=== PATIENT | female | born 1935 | race Caucasian/White ===

== ENCOUNTER → 2017-04-27 13:06 | Outpatient (CLI) | payer MEDICARE, OTHER, SELFPAY ==
[2017-04-27 14:07] LABS: T4 Free Direct 1.59 ng/dL (0.76-1.46); Thyroid Stim Hormone (TSH) 1.84 uIU/mL (0.358-3.74)
[2017-04-27 14:37] LABS: International Normalized Ratio 2.4
== END ==
PROVIDERS: Family Provider Family Medicine; PCP Family Medicine; Visit Provider Internal Medicine Cardiovascular Disease
DX: I50.23 Acute on chronic systolic (congestive) heart failure (principal); Z79.01 Long term (current) use of 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
CPT/HCPCS: 36415; 84439; 84443; 85610

== ENCOUNTER 2017-04-30 14:15 | Outpatient (RCR) | payer MEDICARE, OTHER, SELFPAY ==
[2017-04-02 01:36] VITALS: BP 100/60; BP 98/62
[2017-05-02 08:57] VITALS: BP 106/68; BP 96/52
--- NOTE | 2017-05-02 08:58 | CR.ITP_ITS ---
Exercise - Initial Assessment - Stages of Change Stages of Change:: Contemplate - Exercise Prescription Mode:: Biodyne, Airdyne, NuStep, Arm Ergometer - Hypertension Do any of the following apply?: Yes - Intervention Home Exercise/Activity Goal:: Sitting Time <3 hrs/day - Education Goals:: Warm-up, RPE MERCEDES Scale, S/S, Safe Exercise, Self-Monitoring - Exercise Program Goals Exercise Program Goals: Aerobic Activity >30 min, B/P <140/90 Exercise - 30-day Assessment - Visit Date of Eval: 03/30/17 - Stages of Change Stages of Change:: Action - Exercise Prescription Mode:: Airdyne, NuStep Frequency (x/week): 3 Duration:: 30 METs - Progression: 0.5-1 MET as tolerated: 2.5 Target Heart Rate:: Rest +20 - Intervention Home Exercise/Activity Goal:: Sitting Time <3 hrs/day - Education Goals:: Warm-up, RPE MERCEDES Scale, S/S, Safe Exercise, Self-Monitoring - Exercise Program Goals Exercise Program Goals: Aerobic Activity >30 min, B/P <140/90 Exercise - 60-Day Assessment - Visit Date of Eval: 05/02/17 Session #:: 13 - Stages of Change Stages of Change:: Action - Exercise Prescription Mode:: Biodyne, NuStep Frequency (x/week): 3 Duration:: 30 METs: 3.5 Target Heart Rate:: Rest HR+20 BPM;Max HR 106 - Hypertension Resting Blood Pressure:: 96/52 Peak Exercise Blood Pressure:: 106/68 Medication Changes:: Yes - started back on amiodarone - Intervention Home Exercise/Activity Goal:: Sitting Time <3 hrs/day - patient encouraged to increase activity levels, even if just ambulating at home. - Education Goals:: Warm-up, RPE MERCEDES Scale, S/S, Safe Exercise, Self-Monitoring - Exercise Program Goals Exercise Program Goals: Aerobic Activity >30 min Exercise - Final/Discharge - Hypertension Do any of the following apply?: Yes Nutrition - Initial Assessment - Program Goals Nutrition Program Goals: LDL <70. Total Cholesterol <200. HDL >45. Triglycerides <150. HgbA1C <7%. BMI <25 - Stages of Change Stages of Change:: Contemplate - Diabetes Diabetes:: No - Weight Management Total Score:: 1 - Intervention Referral to dietitian:: No Referral to Diabetic Clinic:: No Will attend diet classes:: Yes - Education Gave educational materials for:: Signs & symptoms of hypoglycemia, Signs & symptoms of hyperglycemia, Relate diabetes to coronary artery disease, Healthy eating Nutrition - 30-Day Assessment - Program Goals Nutrition Program Goals: LDL <70. Total Cholesterol <200. HDL >45. Triglycerides <150. HgbA1C <7%. BMI <25 - Lipids Has the patient seen the dietitian?: No - Diabetes Diabetes:: No - Intervention Referral to dietitian:: No Referral to Diabetic Clinic:: No Will attend diet classes:: Yes - Education Attended class for:: Signs & symptoms of hypoglycemia, Signs & symptoms of hyperglycemia, Relate diabetes to coronary artery disease, Healthy eating Nutrition - 60-Day Assessment - Program Goals Nutrition Program Goals: LDL <70. Total Cholesterol <200. HDL >45. Triglycerides <150. HgbA1C <7%. BMI <25 - Visit Date of Eval: 05/02/17 - Stages of Change Stages of Change:: Action - Lipids Has the patient seen the dietitian?: No - Diabetes Diabetes:: No - Weight Management Weight:: 93.172 kg - Intervention Referral to dietitian:: No Referral to Diabetic Clinic:: No Will attend diet classes:: Yes - Education Attended class for:: Signs & symptoms of hypoglycemia, Signs & symptoms of hyperglycemia, Relate diabetes to coronary artery disease, Healthy eating Nutrition - 90-Day Assessment - Program Goals Nutrition Program Goals: LDL <70. Total Cholesterol <200. HDL >45. Triglycerides <150. HgbA1C <7%. BMI <25 - Lipids Has the patient seen the dietitian?: No - Diabetes Diabetes:: No - Intervention Referral to dietitian:: No Referral to Diabetic Clinic:: No Will attend diet classes:: Yes - Education Attended class for:: Signs & symptoms of hypoglycemia, Signs & symptoms of hyperglycemia, Relate diabetes to coronary artery disease, Healthy eating Nutrition - Final Assessment - Program Goals Nutrition Program Goals: LDL <70. Total Cholesterol <200. HDL >45. Triglycerides <150. HgbA1C <7%. BMI <25 - Diabetes Diabetes:: No - Weight Management Total Score:: 1 - Intervention Referral to dietitian:: No Referral to Diabetic Clinic:: No Will attend diet classes:: Yes Tobacco - Initial Assessment - Program Goals Tobacco Program Goals: Complete smoking cessation. Attend education classes. Improve Knowledge Test score - Stage of Change Stages of Change:: Contemplate - Learning Barriers Learning Barriers: Vision Total Score:: 9 - Family Support Do you have family support?: Yes - Tobacco Use Tobacco Use: Non-smoker Do you use smokeless tobacco?: No - Intervention Smoking Cessation Referral:: No Individual Education/Counseling:: No Education Schedule Given:: Yes - Education Gave educational material for:: Tobacco triggers, Coronary artery disease, Risk factors, Sexuality, Medical compliance, Cardiac A&P, Angina signs & symptoms Tobacco - 30-Day Assessment - Program Goals Tobacco Program Goals: Complete smoking cessation. Attend education classes. Improve Knowledge Test score - Stage of Change Stages of Change:: Action - Learning Barriers Learning Barriers: Participates in education - Family Support Do you have family support?: Yes - Tobacco Use Tobacco Use: Non-smoker Do you use smokeless tobacco?: No - Intervention Smoking Cessation Referral:: No Individual Education/Counseling:: No Education Schedule Given:: Yes - Education Attended class for:: Tobacco triggers, Coronary artery disease, Risk factors, Sexuality, Medical compliance, Cardiac A&P, Angina signs & symptoms Tobacco - 60-Day Assessment - Program Goals Tobacco Program Goals: Complete smoking cessation. Attend education classes. Improve Knowledge Test score - Stage of Change Stages of Change:: Action - Learning Barriers Learning Barriers: Participates in education - Family Support Do you have family support?: Yes - Tobacco Use Tobacco Use: Non-smoker Do you use smokeless tobacco?: No - Intervention Smoking Cessation Referral:: No Individual Education/Counseling:: No Education Schedule Given:: Yes - Education Attended class for:: Tobacco triggers, Coronary artery disease, Risk factors, Sexuality, Medical compliance, Cardiac A&P, Angina signs & symptoms Tobacco - 90-Day Assessment - Program Goals Tobacco Program Goals: Complete smoking cessation. Attend education classes. Improve Knowledge Test score - Family Support Do you have family support?: Yes - Tobacco Use Tobacco Use: Non-smoker Do you use smokeless tobacco?: No - Intervention Smoking Cessation Referral:: No Individual Education/Counseling:: No Education Schedule Given:: Yes - Education Attended class for:: Tobacco triggers, Coronary artery disease, Risk factors, Sexuality, Medical compliance, Cardiac A&P, Angina signs & symptoms Tobacco - Final Assessment - Program Goals Tobacco Program Goals: Complete smoking cessation. Attend education classes. Improve Knowledge Test score - Learning Barriers Cardiac Knowledge Test Score:: 9 - Family Support Do you have family support?: Yes - Tobacco Use Tobacco Use: Non-smoker Do you use smokeless tobacco?: No - Intervention Smoking Cessation Referral:: No Individual Education/Counseling:: No Education Schedule Given:: Yes Psychosocial - Initial Assess - Target Goals Target Goals: Assess presence or absence of depression. Using a valid screening tool, maximizes coping skills. Positive support system - Psychosocial Test Tool Used:: HANDS Depression Questionnaire Total Mood Screening Score:: 12 Self-Efficacy Score:: 7 - Intervention PS - Interventions: Yes Attend Stress Management Classes, Yes Uses Stress Management Skills, No Referral to Mental Health, No Referral to [facility] Case Management, No Referral to Physician - Patient/Program Goal Preventative Medication(s):: Aspirin, EDUARDO inhibitor, Clopidogrel, Beta elda, Statin/lipid - Assistive Devices Assistive Devices:: None Fall Risk Assessed:: Yes - Pt is getting stronger Psychosocial - 30-Day Assess - Target Goals Target Goals: Assess presence or absence of depression. Using a valid screening tool, maximizes coping skills. Positive support system - Stages of Change Stages of Change:: Action - Psychosocial Test Tool Used:: HANDS Depression Questionnaire Total Mood Screening Score:: 12 Self-Efficacy Score:: 7 - Patient/Program Goal Preventative Medication(s):: Aspirin, EDUARDO inhibitor, Clopidogrel, Beta elda, Statin/lipid - Assistive Devices Assistive Devices:: None Fall Risk Assessed:: Yes - Pt is getting stronger Psychosocial - 60-Day Assess - Target Goals Target Goals: Assess presence or absence of depression. Using a valid screening tool, maximizes coping skills. Positive support system - Stages of Change Stages of Change:: Action - Psychosocial Test Tool Used:: HANDS Depression Questionnaire Total Mood Screening Score:: 12 Self-Efficacy Score:: 7 - Intervention PS - Interventions: Yes Referral to Physician - Depression Scale high, low self efficacy score., Yes Attend Stress Management Classes, No Referral to Mental Health, No Referral to [facility] Case Management, No Uses Stress Management Skills - Education Attended classes for:: Coping techniques, Signs & symptoms of depression, Stress management, Relaxation techniques - Patient/Program Goal Preventative Medication(s):: Aspirin, EDUARDO inhibitor, Clopidogrel, Beta elda, Statin/lipid - Assistive Devices Assistive Devices:: None Fall Risk Assessed:: Yes - Pt is getting stronger Psychosocial - 90-Day Assess - Target Goals Target Goals: Assess presence or absence of depression. Using a valid screening tool, maximizes coping skills. Positive support system - Psychosocial Test Tool Used:: HANDS Depression Questionnaire Total Mood Screening Score:: 12 Self-Efficacy Score:: 7 - Patient/Program Goal Preventative Medication(s):: Aspirin, EDUARDO inhibitor, Clopidogrel, Beta elda, Statin/lipid - Assistive Devices Assistive Devices:: None Fall Risk Assessed:: Yes - Pt is getting stronger Psychosocial - Final Assessmen - Target Goals Target Goals: Assess presence or absence of depression. Using a valid screening tool, maximizes coping skills. Positive support system - Psychosocial Test Tool Used:: HANDS Depression Questionnaire Total Mood Screening Score:: 12 Self-Efficacy Score:: 7 - Patient/Program Goal Preventative Medication(s):: Aspirin, EDUARDO inhibitor, Clopidogrel, Beta elda, Statin/lipid - Assistive Devices Assistive Devices:: None Fall Risk Assessed:: Yes - Pt is getting stronger Patient Health Questionnaire 60-Day Re-eval Assessment 1. Little interest or pleasure in doing things: Nearly every day 2. Feeling down, depressed, or hopeless: More than half the days 3. Trouble falling or staying asleep, or sleeping too much: Not at all 4. Feeling tired or having little energy: Several days 5. Poor appetite or overeating: Several days 6. Feeling bad about yourself -- or that you are a failure or have let yourself or your family down: Several days 7. Trouble concentrating on things, such as reading the newspaper or watching television: More than half the days 8. Moving or speaking so slowly that other people could have noticed. Or the opposite - being so fidgety or restless that you have been moving around a lot more than usual: More than half the days 9. Thoughts that you would be better off , or of hurting yourself in some way: Not at all How difficult have these problems made it for you to do your work, take care of things at home, or get along with other people?: Very difficult Total Score: 12 Self-Efficacy 60-Day Re-eval Assessment We would like to know how confident you are in doing certain activities. Please select your confidence level for:: Select your confidence level for the following using the scale 1-10 where 1 is not at all confident and 10 is totally confident. Your score is the average of all 6 responses. Fatigue: How confident are you that you can keep the fatigue caused by your disease from interfering with the things you want to do? Select Number: 7 Physical Discomfort or Pain: How confident are you that you can keep the physical discomfort or pain of your disease from interfering with the things you want to do? Select Number: 6 Emotional Distress: How confident are you that you can keep the emotional distress caused by your disease from interfering with the things you want to do? Select Number: 8 Other Symptoms or Health Problems: How confident are you that you can keep other symptoms or health problems from interfering with the things you want to do? Select Number: 7 Different Tasks and Activities: How confident are you that you can do the different tasks and activities needed to manage your health condition so as to reduce your need to see a doctor? Select Number: 6 Medication: How confident are you that you can do things other than just taking medication to reduce how much your illness affects your everyday life? Select Number: 7 Total Score:: 6 Cardiac Rehabilitation Goals - Cardiac Rehab Goals Cardiac Rehabilitation Goals: 1. Maintain the individual as the primary focus of care. 2. To improve the patient's quality of life. 3. Identification of cardiac risk factors and provide cardiac risk factor management. 4. Enhance the psychosocial status of the patient. 5. Reconditioning enough to allow the patient to resume customary activities. 6. Control symptoms of cardiac disease - Scale Scale for measuring improvement of personal goals: Enter appropriate number in Comments. 2 = Unchanged. 3 = Slightly Better. 4 = Moderate Improvement. 5 = Met my Goal 60-Day Re-eval Assessment Personal Goals: 60-day Re-assessment: Improve energy level - no change, Get back to work, or to resume activities faster - no change, Improve muscle strength and endurance - no change
== END 2017-05-02 23:59 ==
LOC: CR 14:15
PROVIDERS: Family Provider Family Medicine; PCP Family Medicine; Visit Provider Internal Medicine Cardiovascular Disease
DX: Z95.1 Presence of aortocoronary bypass graft (principal); Z95.2 Presence of prosthetic heart valve; I50.23 Acute on chronic systolic (congestive) heart failure; Z79.01 Long term (current) use of 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
CPT/HCPCS: 36415; 84439; 84443; 85610; 93798

== ENCOUNTER → 2017-05-11 13:12 | Outpatient (CLI) | payer MEDICARE, OTHER, SELFPAY ==
[2017-04-23 14:50] VITALS: BP 98/60; BMI 33.6
[2017-05-11 13:40] LABS: Prothrombin Time (Protime)PT. 22.2 SECONDS (11.7-14.9)
== END ==
PROVIDERS: Family Provider Family Medicine; PCP Family Medicine; Visit Provider Internal Medicine Cardiovascular Disease
DX: Z79.01 Long term (current) use of 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 (principal)
CPT/HCPCS: 36415; 85610

== ENCOUNTER → 2017-05-25 13:14 | Outpatient (CLI) | payer MEDICARE, OTHER, SELFPAY ==
[2017-05-25 13:49] LABS: International Normalized Ratio 2.1
== END ==
PROVIDERS: Family Provider Family Medicine; PCP Family Medicine; Visit Provider Internal Medicine Cardiovascular Disease
DX: Z79.01 Long term (current) use of 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 (principal)
CPT/HCPCS: 36415; 85610

== ENCOUNTER 2017-05-30 14:15 | Outpatient (RCR) | payer MEDICARE, OTHER, SELFPAY ==
[2017-04-23 14:50] VITALS: BP 98/60; BMI 33.6
[2017-05-03 00:54] VITALS: BP 106/68; BP 96/52
[2017-05-30 13:17] VITALS: BP 96/58
--- NOTE | 2017-05-30 13:18 | CR.ITP_ITS ---
Exercise - Initial Assessment - Stages of Change Stages of Change:: Contemplate - Exercise Prescription Mode:: Biodyne, Airdyne, NuStep, Arm Ergometer - Hypertension Do any of the following apply?: Yes - Intervention Home Exercise/Activity Goal:: Sitting Time <3 hrs/day - Education Goals:: Warm-up, RPE MERCEDES Scale, S/S, Safe Exercise, Self-Monitoring - Exercise Program Goals Exercise Program Goals: Aerobic Activity >30 min, B/P <140/90 Exercise - 30-day Assessment - Stages of Change Stages of Change:: Action - Exercise Prescription Mode:: Airdyne, NuStep Frequency (x/week): 3 Duration:: 30 METs - Progression: 0.5-1 MET as tolerated: 2.5 Target Heart Rate:: Rest +20 - Intervention Home Exercise/Activity Goal:: Sitting Time <3 hrs/day - Education Goals:: Warm-up, RPE MERCEDES Scale, S/S, Safe Exercise, Self-Monitoring - Exercise Program Goals Exercise Program Goals: Aerobic Activity >30 min, B/P <140/90 Exercise - 60-Day Assessment - Visit Date of Eval: 05/02/17 - Stages of Change Stages of Change:: Action - Exercise Prescription Mode:: Biodyne, NuStep Frequency (x/week): 3 Duration:: 30 METs: 3.5 Target Heart Rate:: Rest HR+20 BPM;Max HR 106 - Hypertension Medication Changes:: Yes - started back on amiodarone - Intervention Home Exercise/Activity Goal:: Sitting Time <3 hrs/day - patient encouraged to increase activity levels, even if just ambulating at home. - Education Goals:: Warm-up, RPE MERCEDES Scale, S/S, Safe Exercise, Self-Monitoring - Exercise Program Goals Exercise Program Goals: Aerobic Activity >30 min Exercise - 90-Day Assessment - Visit Date of Eval: 05/30/17 Session #:: 22 - Stages of Change Stages of Change:: Action - Exercise Prescription Mode:: Biodyne, NuStep Frequency (x/week): 3 Duration:: 30 METs: 3.5 Target Heart Rate:: Rest HR+20 BPM;Max HR 94 - Hypertension Resting Blood Pressure:: 96/58 Peak Exercise Blood Pressure:: 96/58 Medication Changes:: Yes - started back on amiodarone - Intervention Home Exercise/Activity Goal:: Moderate Exercise 30 min/day x 5 days/wk - patient encouraged to increase activity levels, even if just ambulating at home. - Education Goals:: Warm-up, RPE MERCEDES Scale, S/S, Safe Exercise, Self-Monitoring - Exercise Program Goals Exercise Program Goals: Aerobic Activity >30 min Exercise - Final/Discharge - Hypertension Do any of the following apply?: Yes Nutrition - Initial Assessment - Program Goals Nutrition Program Goals: LDL <70. Total Cholesterol <200. HDL >45. Triglycerides <150. HgbA1C <7%. BMI <25 - Stages of Change Stages of Change:: Contemplate - Diabetes Diabetes:: No - Weight Management Total Score:: 1 - Intervention Referral to dietitian:: No Referral to Diabetic Clinic:: No Will attend diet classes:: Yes - Education Gave educational materials for:: Signs & symptoms of hypoglycemia, Signs & symptoms of hyperglycemia, Relate diabetes to coronary artery disease, Healthy eating Nutrition - 30-Day Assessment - Program Goals Nutrition Program Goals: LDL <70. Total Cholesterol <200. HDL >45. Triglycerides <150. HgbA1C <7%. BMI <25 - Lipids Has the patient seen the dietitian?: No - Diabetes Diabetes:: No - Intervention Referral to dietitian:: No Referral to Diabetic Clinic:: No Will attend diet classes:: Yes - Education Attended class for:: Signs & symptoms of hypoglycemia, Signs & symptoms of hyperglycemia, Relate diabetes to coronary artery disease, Healthy eating Nutrition - 60-Day Assessment - Program Goals Nutrition Program Goals: LDL <70. Total Cholesterol <200. HDL >45. Triglycerides <150. HgbA1C <7%. BMI <25 - Visit Date of Eval: 05/02/17 - Stages of Change Stages of Change:: Action - Lipids Has the patient seen the dietitian?: No - Diabetes Diabetes:: No - Intervention Referral to dietitian:: No Referral to Diabetic Clinic:: No Will attend diet classes:: Yes - Education Attended class for:: Signs & symptoms of hypoglycemia, Signs & symptoms of hyperglycemia, Relate diabetes to coronary artery disease, Healthy eating Nutrition - 90-Day Assessment - Program Goals Nutrition Program Goals: LDL <70. Total Cholesterol <200. HDL >45. Triglycerides <150. HgbA1C <7%. BMI <25 - Visit Date of Eval: 02/28/18 - Stages of Change Stages of Change:: Action - Lipids Has the patient seen the dietitian?: No - Diabetes Diabetes:: No Insulin: No Non-Insulin Dependent?: No - Weight Management Weight:: 206 lb - Intervention Referral to dietitian:: No Referral to Diabetic Clinic:: No Will attend diet classes:: Yes - Education Attended class for:: Signs & symptoms of hypoglycemia, Signs & symptoms of hyperglycemia, Relate diabetes to coronary artery disease, Healthy eating Nutrition - Final Assessment - Program Goals Nutrition Program Goals: LDL <70. Total Cholesterol <200. HDL >45. Triglycerides <150. HgbA1C <7%. BMI <25 - Diabetes Diabetes:: No - Weight Management Total Score:: 1 - Intervention Referral to dietitian:: No Referral to Diabetic Clinic:: No Will attend diet classes:: Yes Tobacco - Initial Assessment - Program Goals Tobacco Program Goals: Complete smoking cessation. Attend education classes. Improve Knowledge Test score - Stage of Change Stages of Change:: Contemplate - Learning Barriers Learning Barriers: Vision Total Score:: 9 - Family Support Do you have family support?: Yes - Tobacco Use Tobacco Use: Non-smoker Do you use smokeless tobacco?: No - Intervention Smoking Cessation Referral:: No Individual Education/Counseling:: No Education Schedule Given:: Yes - Education Gave educational material for:: Tobacco triggers, Coronary artery disease, Risk factors, Sexuality, Medical compliance, Cardiac A&P, Angina signs & symptoms Tobacco - 30-Day Assessment - Program Goals Tobacco Program Goals: Complete smoking cessation. Attend education classes. Improve Knowledge Test score - Stage of Change Stages of Change:: Action - Learning Barriers Learning Barriers: Participates in education - Family Support Do you have family support?: Yes - Tobacco Use Tobacco Use: Non-smoker Do you use smokeless tobacco?: No - Intervention Smoking Cessation Referral:: No Individual Education/Counseling:: No Education Schedule Given:: Yes - Education Attended class for:: Tobacco triggers, Coronary artery disease, Risk factors, Sexuality, Medical compliance, Cardiac A&P, Angina signs & symptoms Tobacco - 60-Day Assessment - Program Goals Tobacco Program Goals: Complete smoking cessation. Attend education classes. Improve Knowledge Test score - Stage of Change Stages of Change:: Action - Learning Barriers Learning Barriers: Participates in education - Family Support Do you have family support?: Yes - Tobacco Use Tobacco Use: Non-smoker Do you use smokeless tobacco?: No - Intervention Smoking Cessation Referral:: No Individual Education/Counseling:: No Education Schedule Given:: Yes - Education Attended class for:: Tobacco triggers, Coronary artery disease, Risk factors, Sexuality, Medical compliance, Cardiac A&P, Angina signs & symptoms Tobacco - 90-Day Assessment - Program Goals Tobacco Program Goals: Complete smoking cessation. Attend education classes. Improve Knowledge Test score - Stage of Change Stages of Change:: Action - Learning Barriers Learning Barriers: Participates in education - Family Support Do you have family support?: Yes - Tobacco Use Tobacco Use: Non-smoker Do you use smokeless tobacco?: No - Intervention Smoking Cessation Referral:: No Individual Education/Counseling:: No Education Schedule Given:: Yes - Education Attended class for:: Tobacco triggers, Coronary artery disease, Risk factors, Sexuality, Medical compliance, Cardiac A&P, Angina signs & symptoms Tobacco - Final Assessment - Program Goals Tobacco Program Goals: Complete smoking cessation. Attend education classes. Improve Knowledge Test score - Learning Barriers Cardiac Knowledge Test Score:: 9 - Family Support Do you have family support?: Yes - Tobacco Use Tobacco Use: Non-smoker Do you use smokeless tobacco?: No - Intervention Smoking Cessation Referral:: No Individual Education/Counseling:: No Education Schedule Given:: Yes Psychosocial - Initial Assess - Target Goals Target Goals: Assess presence or absence of depression. Using a valid screening tool, maximizes coping skills. Positive support system - Psychosocial Test Tool Used:: HANDS Depression Questionnaire Total Mood Screening Score:: 12 Self-Efficacy Score:: 7 - Education Gave educational materials for:: Coping techniques, Signs & symptoms of depression, Stress management, Relaxation techniques - Patient/Program Goal Preventative Medication(s):: Aspirin, EDUARDO inhibitor, Clopidogrel, Beta elda, Statin/lipid - Assistive Devices Assistive Devices:: None Fall Risk Assessed:: Yes - Pt is getting stronger Psychosocial - 30-Day Assess - Target Goals Target Goals: Assess presence or absence of depression. Using a valid screening tool, maximizes coping skills. Positive support system - Stages of Change Stages of Change:: Action - Psychosocial Test Tool Used:: HANDS Depression Questionnaire Total Mood Screening Score:: 12 Self-Efficacy Score:: 7 - Patient/Program Goal Preventative Medication(s):: Aspirin, EDUARDO inhibitor, Clopidogrel, Beta elda, Statin/lipid - Assistive Devices Assistive Devices:: None Fall Risk Assessed:: Yes - Pt is getting stronger Psychosocial - 60-Day Assess - Target Goals Target Goals: Assess presence or absence of depression. Using a valid screening tool, maximizes coping skills. Positive support system - Stages of Change Stages of Change:: Action - Psychosocial Test Tool Used:: HANDS Depression Questionnaire Total Mood Screening Score:: 12 Self-Efficacy Score:: 7 - Education Attended classes for:: Coping techniques, Signs & symptoms of depression, Stress management, Relaxation techniques - Patient/Program Goal Preventative Medication(s):: Aspirin, EDUARDO inhibitor, Clopidogrel, Beta elda, Statin/lipid - Assistive Devices Assistive Devices:: None Fall Risk Assessed:: Yes - Pt is getting stronger Psychosocial - 90-Day Assess - Target Goals Target Goals: Assess presence or absence of depression. Using a valid screening tool, maximizes coping skills. Positive support system - Stages of Change Stages of Change:: Action - Psychosocial Test Tool Used:: HANDS Depression Questionnaire Total Mood Screening Score:: 12 Self-Efficacy Score:: 7 - Intervention PS - Interventions: Yes Attend Stress Management Classes, Yes Uses Stress Management Skills, No Referral to Mental Health, No Referral to [facility] Case Management, No Referral to Physician - Education Attended classes for:: Coping techniques, Signs & symptoms of depression, Stress management, Relaxation techniques - Patient/Program Goal Preventative Medication(s):: Aspirin, EDUARDO inhibitor, Clopidogrel, Beta elda, Statin/lipid - Assistive Devices Assistive Devices:: None Fall Risk Assessed:: Yes - Pt is getting stronger Psychosocial - Final Assessmen - Target Goals Target Goals: Assess presence or absence of depression. Using a valid screening tool, maximizes coping skills. Positive support system - Psychosocial Test Tool Used:: HANDS Depression Questionnaire Total Mood Screening Score:: 12 Self-Efficacy Score:: 7 - Patient/Program Goal Preventative Medication(s):: Aspirin, EDUARDO inhibitor, Clopidogrel, Beta elda, Statin/lipid - Assistive Devices Assistive Devices:: None Fall Risk Assessed:: Yes - Pt is getting stronger Patient Health Questionnaire 90-Day Re-eval Assessment 1. Little interest or pleasure in doing things: More than half the days 2. Feeling down, depressed, or hopeless: Several days 3. Trouble falling or staying asleep, or sleeping too much: Not at all 4. Feeling tired or having little energy: Not at all 5. Poor appetite or overeating: Not at all 6. Feeling bad about yourself -- or that you are a failure or have let yourself or your family down: Not at all 7. Trouble concentrating on things, such as reading the newspaper or watching television: Several days 8. Moving or speaking so slowly that other people could have noticed. Or the opposite - being so fidgety or restless that you have been moving around a lot more than usual: Not at all 9. Thoughts that you would be better off , or of hurting yourself in some way: Not at all Total Score: 4 Self-Efficacy 90-Day Re-eval Assessment We would like to know how confident you are in doing certain activities. Please select your confidence level for:: Select your confidence level for the following using the scale 1-10 where 1 is not at all confident and 10 is totally confident. Your score is the average of all 6 responses. Fatigue: How confident are you that you can keep the fatigue caused by your disease from interfering with the things you want to do? Select Number: 8 Physical Discomfort or Pain: How confident are you that you can keep the physical discomfort or pain of your disease from interfering with the things you want to do? Select Number: 7 Emotional Distress: How confident are you that you can keep the emotional distress caused by your disease from interfering with the things you want to do? Select Number: 9 Other Symptoms or Health Problems: How confident are you that you can keep other symptoms or health problems from interfering with the things you want to do? Select Number: 8 Different Tasks and Activities: How confident are you that you can do the different tasks and activities needed to manage your health condition so as to reduce your need to see a doctor? Select Number: 7 Medication: How confident are you that you can do things other than just taking medication to reduce how much your illness affects your everyday life? Select Number: 8 Total Score:: 7
== END 2017-05-30 23:59 ==
LOC: CR 14:15
PROVIDERS: Family Provider Family Medicine; PCP Family Medicine; Visit Provider Internal Medicine Cardiovascular Disease
DX: Z95.1 Presence of aortocoronary bypass graft (principal); Z95.2 Presence of prosthetic heart valve; Z79.01 Long term (current) use of 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
CPT/HCPCS: 36415; 85610; 93798

== ENCOUNTER → 2017-06-07 10:43 | Outpatient (CLI) | payer MEDICARE, OTHER, SELFPAY ==
[2017-06-07 12:28] LABS: Microalbumin,Random Urine 41.5 mg/L (NO RANGE EST.); Microalbumin:Creatinine Ratio 48.9 mg/g CRE (<30 mg/g CRE)
[2017-06-07 12:36] LABS: AST(SGOT) 14 U/L (15-37); Alanine Aminotransfer ALT/SGPT 16 U/L (13-56); Albumin, Serum 3.4 g/dL (3.2-5.0); Alkaline Phosphatase 101 U/L (45-117); Anion Gap 11 (5-15); BUN 33 mg/dL (7-18); BUN/Creat Ratio 16.8 RATIO (10-20); Bilirubin, Direct 0.24 mg/dL (0.00-0.30); Calcium,Total 8.5 mg/dL (8.5-10.1); Chloride 106 mmol/L (98-107); Creatinine, Serum 1.96 mg/dL (0.55-1.02); EST Glomerular Filtration Rate 26 mL/min (>60); Est Glom Filt Rate - Afr Amer 31 mL/min (>60); Globulin 3.3 g/dL (2.2-4.2); Glucose 105 mg/dL (74-106); Protein, Total 6.7 g/dL (6.4-8.2); Sodium Level 142 mmol/L (136-145)
== END ==
PROVIDERS: Family Provider Family Medicine; PCP Family Medicine; Visit Provider Family Medicine
DX: E11.9 Type 2 diabetes mellitus without complications (principal)
CPT/HCPCS: 36415; 80048; 80076; 82043; 82570

== ENCOUNTER → 2017-06-15 13:34 | Outpatient (CLI) | payer MEDICARE, OTHER, SELFPAY ==
[2017-06-15 14:35] LABS: International Normalized Ratio 2.5; Prothrombin Time (Protime)PT. 27.3 SECONDS (11.7-14.9)
== END ==
PROVIDERS: Family Provider Family Medicine; PCP Family Medicine; Visit Provider Internal Medicine Cardiovascular Disease
DX: Z79.01 Long term (current) use of 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 (principal)
CPT/HCPCS: 36415; 85610

== ENCOUNTER → 2017-06-26 12:25 | Outpatient (CLI) | payer MEDICARE, OTHER, SELFPAY ==
[2017-06-26 13:40] LABS: Prothrombin Time (Protime)PT. 30.9 SECONDS (11.7-14.9)
== END ==
PROVIDERS: Family Provider Family Medicine; PCP Family Medicine; Visit Provider Internal Medicine Cardiovascular Disease
DX: Z79.01 Long term (current) use of 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 (principal)
CPT/HCPCS: 36415; 85610

== ENCOUNTER 2017-06-29 14:15 | Outpatient (RCR) | payer MEDICARE, OTHER, SELFPAY ==
[2017-05-31 00:42] VITALS: BP 96/58
[2017-06-25 09:29] VITALS: BP 102/58; BP 122/72
--- NOTE | 2017-06-25 09:30 | CR.ITP_ITS ---
Exercise - Initial Assessment - Stages of Change Stages of Change:: Contemplate - Exercise Prescription Mode:: Biodyne, Airdyne, NuStep, Arm Ergometer - Hypertension Do any of the following apply?: Yes - Intervention Home Exercise/Activity Goal:: Sitting Time <3 hrs/day - Education Goals:: Warm-up, RPE MERCEDES Scale, S/S, Safe Exercise, Self-Monitoring - Exercise Program Goals Exercise Program Goals: Aerobic Activity >30 min, B/P <140/90 Exercise - 30-day Assessment - Stages of Change Stages of Change:: Action - Exercise Prescription Mode:: Airdyne, NuStep Frequency (x/week): 3 Duration:: 30 METs - Progression: 0.5-1 MET as tolerated: 2.5 Target Heart Rate:: Rest +20 - Intervention Home Exercise/Activity Goal:: Sitting Time <3 hrs/day - Education Goals:: Warm-up, RPE MERCEDES Scale, S/S, Safe Exercise, Self-Monitoring - Exercise Program Goals Exercise Program Goals: Aerobic Activity >30 min, B/P <140/90 Exercise - 60-Day Assessment - Visit Date of Eval: 05/30/17 - Stages of Change Stages of Change:: Action - Exercise Prescription Mode:: Biodyne, NuStep Frequency (x/week): 3 Duration:: 30 METs: 3.5 Target Heart Rate:: Rest HR+20 BPM;Max HR 94 - Hypertension Medication Changes:: Yes - started back on amiodarone - Intervention Home Exercise/Activity Goal:: Moderate Exercise 30 min/day x 5 days/wk - patient encouraged to increase activity levels, even if just ambulating at home. - Education Goals:: Warm-up, RPE MERCEDES Scale, S/S, Safe Exercise, Self-Monitoring - Exercise Program Goals Exercise Program Goals: Aerobic Activity >30 min Exercise - 90-Day Assessment - Visit Date of Eval: 06/25/17 - 05/25/17-06/22/17 Session #:: 33 - Stages of Change Stages of Change:: Action - Exercise Prescription Mode:: Biodyne, NuStep Frequency (x/week): 3 Duration:: 30 METs: 4.0 Target Heart Rate:: Rest HR+20 BPM;Max HR 92 - Hypertension Resting Blood Pressure:: 102/58 Peak Exercise Blood Pressure:: 122/72 Medication Changes:: Yes - started back on amiodarone - Intervention Home Exercise/Activity Goal:: Sitting Time <3 hrs/day - patient encouraged to increase activity levels, even if just ambulating at home. - Education Goals:: Warm-up, RPE MERCEDES Scale, S/S, Safe Exercise, Self-Monitoring - Exercise Program Goals Exercise Program Goals: Aerobic Activity >30 min Exercise - Final/Discharge - Hypertension Do any of the following apply?: Yes Nutrition - Initial Assessment - Program Goals Nutrition Program Goals: LDL <70. Total Cholesterol <200. HDL >45. Triglycerides <150. HgbA1C <7%. BMI <25 - Stages of Change Stages of Change:: Contemplate - Diabetes Diabetes:: No Non-Insulin Dependent?: No - Weight Management Total Score:: 1 - Intervention Referral to dietitian:: No Referral to Diabetic Clinic:: No Will attend diet classes:: Yes - Education Gave educational materials for:: Signs & symptoms of hypoglycemia, Signs & symptoms of hyperglycemia, Relate diabetes to coronary artery disease, Healthy eating Nutrition - 30-Day Assessment - Program Goals Nutrition Program Goals: LDL <70. Total Cholesterol <200. HDL >45. Triglycerides <150. HgbA1C <7%. BMI <25 - Lipids Has the patient seen the dietitian?: No - Diabetes Diabetes:: No Insulin: No Non-Insulin Dependent?: No - Intervention Referral to dietitian:: No Referral to Diabetic Clinic:: No Will attend diet classes:: Yes - Education Attended class for:: Signs & symptoms of hypoglycemia, Signs & symptoms of hyperglycemia, Relate diabetes to coronary artery disease, Healthy eating Nutrition - 60-Day Assessment - Program Goals Nutrition Program Goals: LDL <70. Total Cholesterol <200. HDL >45. Triglycerides <150. HgbA1C <7%. BMI <25 - Visit Date of Eval: 05/30/17 - Stages of Change Stages of Change:: Action - Lipids Has the patient seen the dietitian?: No - Diabetes Diabetes:: No Insulin: No Non-Insulin Dependent?: No - Intervention Referral to dietitian:: No Referral to Diabetic Clinic:: No Will attend diet classes:: Yes - Education Attended class for:: Signs & symptoms of hypoglycemia, Signs & symptoms of hyperglycemia, Relate diabetes to coronary artery disease, Healthy eating Nutrition - 90-Day Assessment - Program Goals Nutrition Program Goals: LDL <70. Total Cholesterol <200. HDL >45. Triglycerides <150. HgbA1C <7%. BMI <25 - Visit Date of Eval: 05/30/17 - Stages of Change Stages of Change:: Action - Lipids Has the patient seen the dietitian?: No - Diabetes Diabetes:: No Insulin: No Non-Insulin Dependent?: No - Weight Management Weight:: 94.347 kg - Intervention Referral to dietitian:: No Referral to Diabetic Clinic:: No Will attend diet classes:: Yes - Education Attended class for:: Signs & symptoms of hypoglycemia, Signs & symptoms of hyperglycemia, Relate diabetes to coronary artery disease, Healthy eating Nutrition - Final Assessment - Program Goals Nutrition Program Goals: LDL <70. Total Cholesterol <200. HDL >45. Triglycerides <150. HgbA1C <7%. BMI <25 - Diabetes Diabetes:: No Insulin: No Non-Insulin Dependent?: No - Weight Management Total Score:: 1 - Intervention Referral to dietitian:: No Referral to Diabetic Clinic:: No Will attend diet classes:: Yes Tobacco - Initial Assessment - Program Goals Tobacco Program Goals: Complete smoking cessation. Attend education classes. Improve Knowledge Test score - Stage of Change Stages of Change:: Contemplate - Learning Barriers Learning Barriers: Vision Total Score:: 9 - Family Support Do you have family support?: Yes - Tobacco Use Tobacco Use: Non-smoker Do you use smokeless tobacco?: No - Intervention Smoking Cessation Referral:: No Individual Education/Counseling:: No Education Schedule Given:: Yes - Education Gave educational material for:: Tobacco triggers, Coronary artery disease, Risk factors, Sexuality, Medical compliance, Cardiac A&P, Angina signs & symptoms Tobacco - 30-Day Assessment - Program Goals Tobacco Program Goals: Complete smoking cessation. Attend education classes. Improve Knowledge Test score - Stage of Change Stages of Change:: Action - Learning Barriers Learning Barriers: Participates in education - Family Support Do you have family support?: Yes - Tobacco Use Tobacco Use: Non-smoker Do you use smokeless tobacco?: No - Intervention Smoking Cessation Referral:: No Individual Education/Counseling:: No Education Schedule Given:: Yes - Education Attended class for:: Tobacco triggers, Coronary artery disease, Risk factors, Sexuality, Medical compliance, Cardiac A&P, Angina signs & symptoms Tobacco - 60-Day Assessment - Program Goals Tobacco Program Goals: Complete smoking cessation. Attend education classes. Improve Knowledge Test score - Stage of Change Stages of Change:: Action - Learning Barriers Learning Barriers: Participates in education - Family Support Do you have family support?: Yes - Tobacco Use Tobacco Use: Non-smoker Do you use smokeless tobacco?: No - Intervention Smoking Cessation Referral:: No Individual Education/Counseling:: No Education Schedule Given:: Yes - Education Attended class for:: Tobacco triggers, Coronary artery disease, Risk factors, Sexuality, Medical compliance, Cardiac A&P, Angina signs & symptoms Tobacco - 90-Day Assessment - Program Goals Tobacco Program Goals: Complete smoking cessation. Attend education classes. Improve Knowledge Test score - Stage of Change Stages of Change:: Action - Learning Barriers Learning Barriers: Participates in education - Family Support Do you have family support?: Yes - Tobacco Use Tobacco Use: Non-smoker Do you use smokeless tobacco?: No - Intervention Smoking Cessation Referral:: No Individual Education/Counseling:: No Education Schedule Given:: Yes - Education Attended class for:: Tobacco triggers, Coronary artery disease, Risk factors, Sexuality, Medical compliance, Cardiac A&P, Angina signs & symptoms Tobacco - Final Assessment - Program Goals Tobacco Program Goals: Complete smoking cessation. Attend education classes. Improve Knowledge Test score - Learning Barriers Cardiac Knowledge Test Score:: 9 - Family Support Do you have family support?: Yes - Tobacco Use Tobacco Use: Non-smoker Do you use smokeless tobacco?: No - Intervention Smoking Cessation Referral:: No Individual Education/Counseling:: No Education Schedule Given:: Yes Psychosocial - Initial Assess - Target Goals Target Goals: Assess presence or absence of depression. Using a valid screening tool, maximizes coping skills. Positive support system - Psychosocial Test Tool Used:: HANDS Depression Questionnaire Total Mood Screening Score:: 12 Self-Efficacy Score:: 7 - Intervention PS - Interventions: Yes Attend Stress Management Classes, Yes Uses Stress Management Skills, No Referral to Mental Health, No Referral to [facility] Case Management, No Referral to Physician - Patient/Program Goal Preventative Medication(s):: Aspirin, EDUARDO inhibitor, Clopidogrel, Beta elda, Statin/lipid - Assistive Devices Assistive Devices:: None Fall Risk Assessed:: Yes - Pt is getting stronger Psychosocial - 30-Day Assess - Target Goals Target Goals: Assess presence or absence of depression. Using a valid screening tool, maximizes coping skills. Positive support system - Stages of Change Stages of Change:: Action - Psychosocial Test Tool Used:: HANDS Depression Questionnaire Total Mood Screening Score:: 12 Self-Efficacy Score:: 7 - Patient/Program Goal Preventative Medication(s):: Aspirin, EDUARDO inhibitor, Clopidogrel, Beta elda, Statin/lipid - Assistive Devices Assistive Devices:: None Fall Risk Assessed:: Yes - Pt is getting stronger Psychosocial - 60-Day Assess - Target Goals Target Goals: Assess presence or absence of depression. Using a valid screening tool, maximizes coping skills. Positive support system - Stages of Change Stages of Change:: Action - Psychosocial Test Tool Used:: HANDS Depression Questionnaire Total Mood Screening Score:: 12 Self-Efficacy Score:: 7 - Patient/Program Goal Preventative Medication(s):: Aspirin, EDUARDO inhibitor, Clopidogrel, Beta elda, Statin/lipid - Assistive Devices Assistive Devices:: None Fall Risk Assessed:: Yes - Pt is getting stronger Psychosocial - 90-Day Assess - Target Goals Target Goals: Assess presence or absence of depression. Using a valid screening tool, maximizes coping skills. Positive support system - Stages of Change Stages of Change:: Action - Psychosocial Test Tool Used:: HANDS Depression Questionnaire Total Mood Screening Score:: 12 Self-Efficacy Score:: 7 - Intervention PS - Interventions: Yes Attend Stress Management Classes, Yes Uses Stress Management Skills, No Referral to Mental Health, No Referral to [facility] Case Management, No Referral to Physician - Patient/Program Goal Preventative Medication(s):: Aspirin, EDUARDO inhibitor, Clopidogrel, Beta elda, Statin/lipid - Assistive Devices Assistive Devices:: None Fall Risk Assessed:: Yes - Pt is getting stronger Psychosocial - Final Assessmen - Target Goals Target Goals: Assess presence or absence of depression. Using a valid screening tool, maximizes coping skills. Positive support system - Psychosocial Test Tool Used:: HANDS Depression Questionnaire Total Mood Screening Score:: 12 Self-Efficacy Score:: 7 - Patient/Program Goal Preventative Medication(s):: Aspirin, EDUARDO inhibitor, Clopidogrel, Beta elda, Statin/lipid - Assistive Devices Assistive Devices:: None Fall Risk Assessed:: Yes - Pt is getting stronger Patient Health Questionnaire 90-Day Re-eval Assessment 1. Little interest or pleasure in doing things: Not at all 2. Feeling down, depressed, or hopeless: Not at all 3. Trouble falling or staying asleep, or sleeping too much: Not at all 4. Feeling tired or having little energy: Several days 5. Poor appetite or overeating: Several days 6. Feeling bad about yourself -- or that you are a failure or have let yourself or your family down: Not at all 7. Trouble concentrating on things, such as reading the newspaper or watching television: Not at all 8. Moving or speaking so slowly that other people could have noticed. Or the opposite - being so fidgety or restless that you have been moving around a lot more than usual: Not at all 9. Thoughts that you would be better off , or of hurting yourself in some way: Not at all How difficult have these problems made it for you to do your work, take care of things at home, or get along with other people?: Not difficult at all Total Score: 2 Self-Efficacy 90-Day Re-eval Assessment We would like to know how confident you are in doing certain activities. Please select your confidence level for:: Select your confidence level for the following using the scale 1-10 where 1 is not at all confident and 10 is totally confident. Your score is the average of all 6 responses. Fatigue: How confident are you that you can keep the fatigue caused by your disease from interfering with the things you want to do? Select Number: 8 Physical Discomfort or Pain: How confident are you that you can keep the physical discomfort or pain of your disease from interfering with the things you want to do? Select Number: 8 Emotional Distress: How confident are you that you can keep the emotional distress caused by your disease from interfering with the things you want to do? Select Number: 8 Other Symptoms or Health Problems: How confident are you that you can keep other symptoms or health problems from interfering with the things you want to do? Select Number: 8 Different Tasks and Activities: How confident are you that you can do the different tasks and activities needed to manage your health condition so as to reduce your need to see a doctor? Select Number: 8 Medication: How confident are you that you can do things other than just taking medication to reduce how much your illness affects your everyday life? Select Number: 8 Total Score:: 8 Cardiac Rehabilitation Goals - Cardiac Rehab Goals Cardiac Rehabilitation Goals: 1. Maintain the individual as the primary focus of care. 2. To improve the patient's quality of life. 3. Identification of cardiac risk factors and provide cardiac risk factor management. 4. Enhance the psychosocial status of the patient. 5. Reconditioning enough to allow the patient to resume customary activities. 6. Control symptoms of cardiac disease - Scale Scale for measuring improvement of personal goals: Enter appropriate number in Comments. 2 = Unchanged. 3 = Slightly Better. 4 = Moderate Improvement. 5 = Met my Goal 90-Day Re-eval Assessment Personal Goals: 60-day Re-assessment: Improve energy level, Participate in home exercise program, Improve knowledge of cardiac disease, Improve muscle strength and endurance, Improve diet and eating habits (eat healthier), Control risk factors (learn risk factor modification)
== END 2017-06-29 15:22 | disposition home or self-care (01) ==
LOC: CR 14:15
PROVIDERS: Family Provider Family Medicine; PCP Family Medicine; Visit Provider Internal Medicine Cardiovascular Disease
DX: Z95.1 Presence of aortocoronary bypass graft (principal); Z95.2 Presence of prosthetic heart valve; Z79.01 Long term (current) use of 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
CPT/HCPCS: 93798

== ENCOUNTER 2017-07-13 11:00 | Outpatient (RCR) | payer MEDICARE, OTHER, SELFPAY ==
[2017-07-13 11:58] LABS: International Normalized Ratio 2.7; Prothrombin Time (Protime)PT. 29.2 SECONDS (11.7-14.9)
== END 2017-07-13 12:00 | disposition home or self-care (01) ==
LOC: LAB 11:00
PROVIDERS: Family Provider Family Medicine; PCP Family Medicine; Visit Provider Internal Medicine Cardiovascular Disease
DX: Z79.01 Long term (current) use of 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 (principal)
CPT/HCPCS: 36415; 85610

== ENCOUNTER 2017-08-24 13:16 | Outpatient (RCR) | payer MEDICARE, OTHER, SELFPAY ==
[2017-08-10 14:38] LABS: International Normalized Ratio 3.1; Prothrombin Time (Protime)PT. 32.5 SECONDS (11.7-14.9)
[2017-08-24 13:44] LABS: International Normalized Ratio 2.7; Prothrombin Time (Protime)PT. 28.4 SECONDS (11.7-14.9)
== END 2017-08-24 14:00 | disposition home or self-care (01) ==
LOC: LAB 13:16
PROVIDERS: Family Provider Family Medicine; PCP Family Medicine; Visit Provider Internal Medicine Cardiovascular Disease
DX: Z79.01 Long term (current) use of 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 (principal)
CPT/HCPCS: 36415; 85610

== ENCOUNTER → 2017-09-06 11:25 | Outpatient (CLI) | payer MEDICARE, OTHER, SELFPAY ==
--- NOTE | 2017-09-06 11:25 | DT_ITS ---
This patient was seen during an EMR downtime September 03, 2017 - September 10, 2017. This patient may have a combination of paper and electronic documentation or all paper documentation. All documentation is viewable within the e-chart portion of [facility] for each patient visit.
[2017-09-11 02:59] LABS: BUN 26 mg/dL (7-18); BUN/Creat Ratio 15.3 RATIO (10-20); EST Glomerular Filtration Rate 31 mL/min (>60); Est Glom Filt Rate - Afr Amer 38 mL/min (>60); Glucose 101 mg/dL (74-106)
[2017-09-11 03:00] LABS: AST(SGOT) 15 U/L (15-37); Alanine Aminotransfer ALT/SGPT 17 U/L (13-56); Albumin, Serum 3.4 g/dL (3.2-5.0); Alkaline Phosphatase 136 U/L (45-117); Anion Gap 9 (5-15); Bilirubin, Direct 0.44 mg/dL (0.00-0.30); Calcium,Total 8.7 mg/dL (8.5-10.1); Chloride 104 mmol/L (98-107); Cholesterol 115 mg/dL (200); Globulin 3.8 g/dL (2.2-4.2); High Density Lipoprotein 27 mg/dL; Potassium 3.9 mmol/L (3.5-5.1); Protein, Total 7.2 g/dL (6.4-8.2); Sodium Level 143 mmol/L (136-145); Triglycerides 122 mg/dL; Very Low Density Lipoprotein 24 mg/dL (5-40)
[2017-09-11 03:26] LABS: White Blood Count 5.8 K/mm3 (4.4-11.0)
[2017-09-11 03:27] LABS: Absolute Lymphocyte Count 0.73 X10^3/ul (0.83-4.51); Absolute Neutrophil Count 4.5 X10^3/uL (2.0-7.7); Basophil# 0.01 X10^3/uL; Basophil% 0.2 % (0-1); Differential Comment SCANNED; Differential Indicated SCAN CRITERIA MET; Eosinophil# 0.03 X10^3/uL; Eosinophils% 0.5 % (0-5); Hematocrit 34.2 % (37-47); Hemoglobin 9.4 g/dl (12.0-15.0); Lymphocyte # 0.73 X10^3/ul (4.0); Lymphocyte % 12.5 % (19-41); Mean Corp Hgb Conc 27.5 g/gl (32-36); Mean Corpuscular Volume 72.8 fL (81-99); Mean Platelet Vol. 9.5 fl (6.2-12.0); Monocyte# 0.58 X10^3/uL; Neutrophil # 4.46 X10^3/uL (2.7-7.7); Neutrophil % 76.6 % (47-70); POSITIVE COUNT NO; POSITIVE DIFFERENTIAL NO; POSITIVE MORPHOLOGY YES; Platelet Count 180 K/mm3 (150-450); RBC Distribution Width CV 19.4 % (11.6-14.6); RBC Distribution Width SD 51.4 fl (35.1-43.9)
[2017-09-11 03:28] LABS: Anisocytosis 2+; Hypochromasia 2+; Microcytosis 3+; Ovalocyte 1+
== END ==
PROVIDERS: Family Provider Family Medicine; PCP Family Medicine; Visit Provider Family Medicine
DX: E11.9 Type 2 diabetes mellitus without complications (principal); R53.83 Other fatigue
CPT/HCPCS: 36415; 80048; 80061; 80076; 85025

== ENCOUNTER → 2017-09-25 10:03 | Outpatient (CLI) | payer MEDICARE, OTHER, SELFPAY ==
[2017-09-25 11:21] LABS: Anion Gap 12 (5-15); BUN 31 mg/dL (7-18); BUN/Creat Ratio 15.4 RATIO (10-20); Calcium,Total 8.6 mg/dL (8.5-10.1); Chloride 105 mmol/L (98-107); Creatinine, Serum 2.01 mg/dL (0.55-1.02); EST Glomerular Filtration Rate 25 mL/min (>60); Est Glom Filt Rate - Afr Amer 31 mL/min (>60); Glucose 150 mg/dL (74-106); Magnesium 1.7 mg/dL (1.6-2.6); Sodium Level 142 mmol/L (136-145)
== END ==
PROVIDERS: Family Provider Family Medicine; PCP Family Medicine; Visit Provider Internal Medicine Cardiovascular Disease
DX: I13.0 Hypertensive heart and chronic kidney disease with heart failure and stage 1 through stage 4 chronic kidney disease, or unspecified chronic kidney disease (principal); I50.23 Acute on chronic systolic (congestive) heart failure; E11.22 Type 2 diabetes mellitus with diabetic chronic kidney disease; N18.3 Chronic kidney disease, stage 3 (moderate); I25.10 Atherosclerotic heart disease of native coronary artery without angina pectoris; I27.21 Secondary pulmonary arterial hypertension; I25.5 Ischemic cardiomyopathy; Z79.01 Long term (current) use of 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; Z85.3 Personal history of malignant neoplasm of breast; Z85.528 Personal history of other malignant neoplasm of kidney; Z95.810 Presence of automatic (implantable) cardiac defibrillator; Z95.1 Presence of aortocoronary bypass graft
CPT/HCPCS: 36415; 80048; 83735

== ENCOUNTER 2017-09-28 13:31 | Outpatient (RCR) | payer MEDICARE, OTHER, SELFPAY ==
[2017-09-14 15:43] LABS: International Normalized Ratio 3.1; Prothrombin Time (Protime)PT. 32.5 SECONDS (11.7-14.9)
[2017-09-28 15:01] LABS: International Normalized Ratio 5.3
== END 2017-09-28 15:00 | disposition home or self-care (01) ==
LOC: LAB 13:31
PROVIDERS: Family Provider Family Medicine; PCP Family Medicine; Visit Provider Internal Medicine Cardiovascular Disease
DX: Z79.01 Long term (current) use of 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 (principal)
CPT/HCPCS: 36415; 85610

== ENCOUNTER 2017-10-30 11:25 | Outpatient (RCR) | payer MEDICARE, OTHER, SELFPAY ==
[2017-10-01 14:31] LABS: International Normalized Ratio 3.7
[2017-10-08 15:46] LABS: International Normalized Ratio 1.9; Prothrombin Time (Protime)PT. 21.6 SECONDS (11.7-14.9)
[2017-10-15 15:44] LABS: International Normalized Ratio 2.1; Prothrombin Time (Protime)PT. 23.8 SECONDS (11.7-14.9)
[2017-10-15 15:51] LABS: Absolute Lymphocyte Count 0.73 X10^3/ul (0.83-4.51); Absolute Neutrophil Count 5.6 X10^3/uL (2.0-7.7); Basophil# 0.01 X10^3/uL; Basophil% 0.1 % (0-1); Eosinophil# 0.04 X10^3/uL; Eosinophils% 0.6 % (0-5); Hematocrit 34.1 % (37-47); Hemoglobin 9.5 g/dl (12.0-15.0); Lymphocyte # 0.73 X10^3/ul (4.0); Lymphocyte % 10.3 % (19-41); Mean Corp Hgb Conc 27.9 g/gl (32-36); Mean Corpuscular Hgb 21.8 pg (27.0-32.0); Mean Corpuscular Volume 78.2 fL (81-99); Mean Platelet Vol. 9.8 fl (6.2-12.0); Monocyte# 0.68 X10^3/uL; Monocyte% 9.6 % (0-10); Neutrophil # 5.64 X10^3/uL (2.7-7.7); Neutrophil % 79.3 % (47-70); Platelet Count 160 K/mm3 (150-450); RBC Distribution Width CV 22.9 % (11.6-14.6); RBC Distribution Width SD 63.1 fl (35.1-43.9); Red Blood Count 4.36 M/mm3 (4.2-5.4); White Blood Count 7.1 K/mm3 (4.4-11.0)
[2017-10-15 15:52] LABS: Differential Indicated SCAN CRITERIA MET; POSITIVE COUNT NO; POSITIVE DIFFERENTIAL NO; POSITIVE MORPHOLOGY YES
[2017-10-15 15:56] LABS: Anion Gap 9 (5-15); BUN 38 mg/dL (7-18); BUN/Creat Ratio 15.4 RATIO (10-20); Calcium,Total 8.8 mg/dL (8.5-10.1); Chloride 105 mmol/L (98-107); Creatinine, Serum 2.47 mg/dL (0.55-1.02); EST Glomerular Filtration Rate 20 mL/min (>60); Est Glom Filt Rate - Afr Amer 24 mL/min (>60); Glucose 129 mg/dL (74-106); Potassium 5.1 mmol/L (3.5-5.1); Sodium Level 143 mmol/L (136-145)
[2017-10-30 12:36] LABS: International Normalized Ratio 2.5
== END 2017-10-30 13:00 | disposition home or self-care (01) ==
LOC: LAB 11:25
PROVIDERS: Family Provider Family Medicine; PCP Family Medicine; Visit Provider Internal Medicine Cardiovascular Disease
DX: I10 Essential (primary) hypertension (principal); R10.9 Unspecified abdominal pain; Z79.01 Long term (current) use of 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
CPT/HCPCS: 36415; 80048; 85025; 85610

== ENCOUNTER 2017-11-05 14:55 | Inpatient (IN) | payer MEDICARE, OTHER, SELFPAY ==
[2017-11-05 14:56] VITALS: BP 123/73; PULSE 78; RESP 20; TEMP 36.6; O2SAT 93; BMI 38.4
--- NOTE | 2017-11-05 15:21 | RAD_ITS ---
STUDY: X-RAY CHEST REASON FOR EXAM: Female, 82 years old. Increased fluid retention and bilateral lower extremity and abdominal edema. TECHNIQUE: Portable chest upright COMPARISON: 03/31/2017 FINDINGS: Left pectoral single lead AICD device, median sternotomy and left atrial appendage clip. The lungs are clear without features of acute CHF. No effusion or pneumothorax. No infiltrate. Stable mild cardiomegaly. Normal mediastinal silhouette, blaise and pleural margins. No acute osseous or upper abdominal process. RAD/Chest 1 View (Portable) IMPRESSION: No acute cardiopulmonary process. There is no evidence of acute cardiogenic pulmonary edema. Electronically Signed: Hernan Benz, at 16:20 EDT Tel , Service support ,
--- NOTE | 2017-11-05 15:32 | NURSING ---
NO LW OR POA
--- NOTE | 2017-11-05 15:43 | ED.DCSUM_ITS ---
- ER Visit Summary Date of Service: 11/05/17 Chief Complaint: CHF History of Present Illness: The patient is a 82 F with CHF for the past several months. Patient states she has actually had problems since her heart surgery last December. She has been on Lasix without significant improvement. She now has edema not only in her legs but up into her abdomen is well. Patient was seen by Dr. Tran in the office today. He wishes to have the patient admitted for a Bumex drip and will need to have a nephrology consult as well. Patient does have a history of renal cell carcinoma and has had a right nephrectomy. Physical Examination: Vital signs are unremarkable. Pulse ox is listed in triage and 93% but she is satting 96% at time of my examination. Head and neck examination is unremarkable. Heart is regular rate and rhythm. Lung sounds are diminished at the bases. Abdomen is soft nontender, but is distended. Extremity examination reveals 3+ edema in the lower legs that is symmetric. I do not see significant erythema. Test Results: Chest x-ray shows no acute process and no evidence of pulmonary edema. EKG is sinus at 73 with no acute ischemia. CBC was normal white count with hemoglobin 9.8. Platelet count is 136,000. Chemistry studies reveal potassium of 5.6 with moderate hemolysis noted. BUN is 31 and creatinine is 2.23 which appears consistent with her baseline. INR is therapeutic at 2.4. Troponin is negative. BNP is 694. Emergency Department Course and Treatment: Per Dr. Tran's wishes, Bumex drip was started. Medrano catheter was placed to measure output. Hospitalist will be contacted for admission. Treatment Plan: [] Disposition: Admit Impression: CHF This note was generated with [employer] dictation software. It may contain incorrect words, spelling, and punctuation that were not noted in review of the chart prior to signing ED Disposition - Plan for ED Patient: Chief Complaint: Edema Referrals: Gilberto Rios MD [Primary Care Provider] -
[2017-11-05] MEDS: Bumetanide 12.5 MG in CONTAINER,EMPTY 1 BAG 2 MG CONT INF (16:03)
[2017-11-05 16:15] LABS: Absolute Lymphocyte Count 0.52 X10^3/ul (0.83-4.51); Absolute Neutrophil Count 4.9 X10^3/uL (2.0-7.7); Basophil# 0.01 X10^3/uL; Basophil% 0.2 % (0-1); Eosinophil# 0.06 X10^3/uL; Hematocrit 35.6 % (37-47); Hemoglobin 9.8 g/dl (12.0-15.0); Lymphocyte # 0.52 X10^3/ul (4.0); Lymphocyte % 8.6 % (19-41); Mean Corp Hgb Conc 27.5 g/gl (32-36); Mean Corpuscular Hgb 22.1 pg (27.0-32.0); Mean Corpuscular Volume 80.4 fL (81-99); Mean Platelet Vol. 9.1 fl (6.2-12.0); Monocyte# 0.51 X10^3/uL; Monocyte% 8.5 % (0-10); Neutrophil # 4.91 X10^3/uL (2.7-7.7); Neutrophil % 81.5 % (47-70); Platelet Count 136 K/mm3 (150-450); RBC Distribution Width CV 22.1 % (11.6-14.6); RBC Distribution Width SD 64.7 fl (35.1-43.9); Red Blood Count 4.43 M/mm3 (4.2-5.4)
[2017-11-05 16:17] LABS: Anion Gap 8 (5-15); BUN 31 mg/dL (7-18); BUN/Creat Ratio 13.9 RATIO (10-20); Calcium,Total 8.9 mg/dL (8.5-10.1); Chloride 106 mmol/L (98-107); Creatinine, Serum 2.23 mg/dL (0.55-1.02); EST Glomerular Filtration Rate 22 mL/min (>60); Est Glom Filt Rate - Afr Amer 27 mL/min (>60); Glucose 106 mg/dL (74-106); International Normalized Ratio 2.4; Potassium 5.6 mmol/L (3.5-5.1); Prothrombin Time (Protime)PT. 26.4 SECONDS (11.7-14.9); Sodium Level 143 mmol/L (136-145)
[2017-11-05 16:19] LABS: BNP,B-Type NATRIURETIC PEPTIDE 694.3 pg/mL (0-100)
[2017-11-05 16:23] LABS: Differential Indicated SCAN CRITERIA MET; POSITIVE COUNT NO; POSITIVE DIFFERENTIAL YES; POSITIVE MORPHOLOGY YES
[2017-11-05 16:44] LABS: Anisocytosis 1+; Differential Comment SCANNED; Microcytosis RARE; Ovalocyte 1+; Schistocytes RARE
--- NOTE | 2017-11-05 16:49 | NURSING ---
DR BENSON IN ER
[2017-11-05 17:00] VITALS: BMI 38.4
--- NOTE | 2017-11-05 17:32 | PCM.HP.STD ---
Problem List (1) CHF (congestive heart failure) Status: Acute Qualifiers: Heart failure type: unspecified Heart failure chronicity: acute Qualified Code(s): I50.9 - Heart failure, unspecified History of Present Illness Date of Admission: 11/05/17 Chief Complaint: shortness of breath. orthopnea The patient is a 82 year old F who had a valve replaced in December and since then, has been short of breath. Patient has also been edematous as well. Patient has been noticing orthopnea. Patient saw Dr. Tran who directed patient to the emergency room. In the emergency room, patient had a chest x-ray that was unremarkable. A BNP of 694 Dr. Tran was contacted by the emergency room and a Bumex drip given the patient's chronic kidney disease. Patient is currently not on any oxygen at this time but does note that she has swelling in her lower extremities extending up into her hips. [] Past Medical History Past Medical History (Chronic Problems): Chronic Problems (Last Reviewed 11/05/17 @ 17:34 by Adarsh Gipson DO) Ventricular tachyarrhythmia (Chronic) Presence of implantable cardioverter-defibrillator (ICD) (Chronic ~05/10/09) [employer] 05/10/2009 Secondary pulmonary arterial hypertension (Chronic) Ischemic cardiomyopathy (Chronic) Atherosclerosis of coronary artery of [place] heart without angina pectoris (Chronic) S/P bypass [place] [address] 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 marginal branch half-way (current) use of 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 (Chronic) Z79.01 Acute on chronic systolic CHF (congestive heart failure) (Chronic) I50.23 Chronic kidney disease, stage 3 (Chronic) N18.3 Type 2 diabetes mellitus (Chronic) E11.9 History of breast cancer (Chronic) Z85.3 History of renal cell carcinoma (Chronic) Z85.528 Hypertension (Chronic) I10 Allergies erythromycin base Adverse Reaction (Verified 11/05/17 13:40) Vomiting meperidine [From Demerol] Adverse Reaction (Verified 11/05/17 13:40) Vomiting Home Medications: Ambulatory Orders Medication Instructions Recorded Furosemide 40 mg PO DAILY 12/23/16 Niacin 250 mg PO DAILY 12/23/16 Omeprazole [Prilosec] 20 mg PO DAILY 12/23/16 alprazolam 0.5 mg tablet 0.5 mg PO QHS tab 03/19/17 metoprolol tartrate 25 mg tablet 25 mg PO BID 03/19/17 warfarin 3 mg tablet 3 mg PO SUMOTU 03/19/17 Metformin HCl [Glucophage] 500 mg PO DAILY 03/31/17 Warfarin [Coumadin (PBKC)] 1.5 mg PO WETHFRSA 03/31/17 amiodarone 200 mg tablet 200 mg PO DAILY 90 Days #90 tab 04/19/17 Aspirin E.C. [Ecotrin] 81 mg PO DAILY 11/05/17 C,E,Zinc,Copper 11/Yvzmw8i/Lut 1 tablet PO DAILY 11/05/17 [Ocuvite Adult 50 Plus Softgel] Calcium Carbonate/Vitamin D3 1 tab PO DAILY 11/05/17 [Calcium 600-Vit D3 200 Tablet] Carboxymethylcellulose Sodium 1 drop EACH EYE TID 11/05/17 [Refresh Tears] Ferrous Sulfate [Iron] 325 mg PO DAILY 11/05/17 Magnesium Oxide 400 mg PO DAILY 11/05/17 Naproxen 500 mg PO BID PRN PRN 11/05/17 Surgical History: Surgical History (Last Reviewed 11/05/17 @ 17:34 by Adarsh Gipson DO) H/O coronary artery bypass surgery (Acute) Z95.1 S/P bypass [place] [address] 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 marginal branch Presence of implantable cardioverter-defibrillator (ICD) (Chronic) Onset Date: ~05/10/09 Z95.810 [employer] 05/10/2009 Status post right nephrectomy (Chronic) Status post implantation of automatic cardioverter/defibrillator (AICD) (Chronic) Z95.810 History of left heart catheterization Onset Date: ~12/25/16 Z98.890 History of mitral valve replacement Z95.2 Mitral Valve Replacement with a 27mm [employer] Olegario bioprosthesis @ [facility] by Dr. Núñez History of partial mastectomy of left breast Onset Date: ~11/2003 Z98.890, Z90.12 History of total abdominal hysterectomy Z98.890, Z90.710 Hx of CABG Onset Date: ~12/2016 Z95.1 x2 ANGULO to LAD, SVG-OM; W/LAE occlusion with 35-mm Atricure Clip Hx of cholecystectomy Z98.890, Z90.49 Surgical History: appendectomy, cholecystectomy, tonsillectomy, - - hysterectomy, mastectomy, nephrectomy Smoking Status: Never smoker - *Family History Maternal Family History: Family History (Last Reviewed 11/05/17 @ 17:35 by Adarsh Gipson DO) Brother CAD (coronary artery disease) History Items: No pertinent history Paternal Family History: Family History (Last Reviewed 11/05/17 @ 17:35 by Adarsh Gipson DO) Brother CAD (coronary artery disease) History Items: No pertinent history Review of Systems Constitutional: Denies: Anorexia, Chills, Fever Eyes: Denies: Blurred vision, Double vision HEENT: Denies: Head Aches, Sinus Congestion, Sinus Drainage Cardiovascular: Reports: Edema, Orthopnea. Denies: Chest Pain, Palpitations Respiratory: Reports: Shortness of Breath. Denies: Cough Gastrointestinal: Denies: Abdominal Pain, Nausea, Vomiting Genitourinary: Reports: - - Decreased urinary output. Denies: Dysuria Musculoskeletal: Denies: Joint Pain, Joint Tenderness Skin: Denies: Rash, Wounds Neurological: Denies: Numbness, Tingling, Focal weakness Psychiatric: Denies: Anxiety, Depression Hematologic/ Lymphatic: Denies: Easy Bruising, Easy Bleeding, Hx of blood clot Comment: All review of systems are negative except as mentioned in the history of present illness and the other review of systems. VTE Information - Inpt Only VTE Present on Admission: No VTE Pharm Prophylaxis ordered?: Yes Patient Problems: Active and Suspected Problems (Last Reviewed 11/05/17 @ 17:34 by Adarsh Gipson DO) CHF (congestive heart failure) (Acute) - Physical Exam General: Alert, Cooperative, No apparent distress HEENT: Atraumatic, Normocephalic Oral: Moist Mucosa Neck: No JVD, No Nodes, Thyroid Normal Size and Texture Lungs: Clear to auscultation, Normal air movement, No rhonchi, No wheeze Cardiovascular: Regular rate, Regular Rhythm, Normal S1, Normal S2, No murmurs Abdomen: Bowel Sounds Present, Soft, Non Tender, Non-Distended, No Hepato-splenomegaly Extremities: No Calf Tenderness, Edema - Taut edema extending in the entire lower extremities up into her buttocks. Skin: No rashes, No breakdown Musculoskeletal: No Tenderness to Palpation of Joints or Extremities, No Muscle Wasting Psych/Mental Status: Normal Affect, Appropriate Vital Signs Temp Pulse Resp BP Pulse Ox 36.6 C 78 20 H 123/73 H 93 11/05/17 14:56 11/05/17 14:56 11/05/17 14:56 11/05/17 14:56 11/05/17 14:56 Oxygen Delivery Method Room Air Weight: 104.7 kg Body Mass Index (BMI) 38.4 Laboratory Tests Past 24 Hrs 11/05/17 11/05/17 11/05/17 15:40 15:40 15:40 WBC 6.0 RBC 4.43 Hgb 9.8 L Hct 35.6 L MCV 80.4 L MCH 22.1 L MCHC 27.5 L RDW 22.1 H RDW Differential 64.7 H Plt Count 136 L MPV 9.1 Immature Gran % (Auto) 0.200 Neut % (Auto) 81.5 H Lymph % (Auto) 8.6 L [place] % (Auto) 8.5 Eos % (Auto) 1.0 Baso % (Auto) 0.2 Absolute Neuts (auto) 4.9 Absolute Lymphs (auto) 0.52 L Total Counted Not Reportable Differential Comment SCANNED Anisocytosis 1+ Microcytosis RARE Ovalocytes 1+ Schistocytes RARE PT INR Sodium 143 Potassium 5.6 H Chloride 106 Carbon Dioxide 29.0 Anion Gap 8 BUN 31 H Creatinine 2.23 H Estim Creat Clear Calc 17.50 Est GFR (MDRD) Af Amer 27 L Est GFR (MDRD) Non-Af 22 L BUN/Creatinine Ratio 13.9 Glucose 106 Calcium 8.9 Troponin I < 0.015 B-Natriuretic Peptide 694.3 H 11/05/17 15:40 WBC RBC Hgb Hct MCV MCH MCHC RDW RDW Differential Plt Count MPV Immature Gran % (Auto) Neut % (Auto) Lymph % (Auto) [place] % (Auto) Eos % (Auto) Baso % (Auto) Absolute Neuts (auto) Absolute Lymphs (auto) Total Counted Differential Comment Anisocytosis Microcytosis Ovalocytes Schistocytes PT 26.4 H INR 2.4 Sodium Potassium Chloride Carbon Dioxide Anion Gap BUN Creatinine Estim Creat Clear Calc Est GFR (MDRD) Af Amer Est GFR (MDRD) Non-Af BUN/Creatinine Ratio Glucose Calcium Troponin I B-Natriuretic Peptide Chest x-ray personally reviewed and showed no evidence of any pulmonary edema. AICD in place. Assessment/Plan All Active Problems (Last Reviewed 11/05/17 @ 17:34 by Adarsh Gipson DO) CHF (congestive heart failure) (Acute) H/O coronary artery bypass surgery (Acute) 1. Acute CHF exacerbation I do not see any results of echocardiograms in our system to note this is preserved or reduced ejection fraction though I suspect the latter. Patient has been started on a Bumex drip in the emergency room and will continue Patient is on metoprolol tartrate Given the patient's chronic kidney disease she is not a candidate for EDUARDO inhibitors or angiotensin receptor blockers Check an echocardiogram Consultation to cardiology Should be noted that the patient's weight in September 26 was 98.4 kg and now it is 104.7 kg. 2. Chronic kidney disease stage IV Creatinine appears to be at baseline Monitor closely while the patient is on a bumetanide drip Consider nephrology consultation if her creatinine starts to get worse 3. Diabetes mellitus type 2 Discontinue metformin given the CHF For now, patient just be on a sliding scale of NovoLog 4. DVT prophylaxis with heparin 5. Advanced directives: Patient wishes to be DNR Comfort Care arrest and no intubation. Patient is aware that these decisions can be changed at a later point if she so desires. Code Visit Inpatient E&M: 88404 Init Hosp L3
--- NOTE | 2017-11-05 17:37 | HP.PCM_ITS ---
Problem List (1) CHF (congestive heart failure) Status: Acute Qualifiers: Heart failure type: unspecified Heart failure chronicity: acute Qualified Code(s): I50.9 - Heart failure, unspecified History of Present Illness Date of Admission: 11/05/17 Chief Complaint: shortness of breath. orthopnea The patient is a 82 year old F who had a valve replaced in December and since then, has been short of breath. Patient has also been edematous as well. Patient has been noticing orthopnea. Patient saw Dr. Tran who directed patient to the emergency room. In the emergency room, patient had a chest x- ray that was unremarkable. A BNP of 694 Dr. Tran was contacted by the emergency room and a Bumex drip given the patient's chronic kidney disease. Patient is currently not on any oxygen at this time but does note that she has swelling in her lower extremities extending up into her hips. [] Past Medical History Past Medical History (Chronic Problems): Chronic Problems (Last Reviewed 11/05/17 @ 17:34 by Adarsh Gipson DO) Ventricular tachyarrhythmia (Chronic) Presence of implantable cardioverter-defibrillator (ICD) (Chronic ~05/10/09) [employer] 05/10/2009 Secondary pulmonary arterial hypertension (Chronic) Ischemic cardiomyopathy (Chronic) Atherosclerosis of coronary artery of [place] heart without angina pectoris ( Chronic) S/P bypass surgery in [address] 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) use of 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 (Chronic) Acute on chronic systolic CHF (congestive heart failure) (Chronic) Chronic kidney disease, stage 3 (Chronic) Type 2 diabetes mellitus (Chronic) Status post right nephrectomy (Chronic) Status post implantation of automatic cardioverter/defibrillator (AICD) (Chronic ) History of breast cancer (Chronic) History of renal cell carcinoma (Chronic) Hypertension (Chronic) Medical History: Medical History (Last Reviewed 11/05/17 @ 17:34 by Adarsh Gipson DO) Ventricular tachyarrhythmia (Chronic) I47.2 Secondary pulmonary arterial hypertension (Chronic) I27.21 Ischemic cardiomyopathy (Chronic) I25.5 Atherosclerosis of coronary artery of [place] heart without angina pectoris ( Chronic) I25.10 S/P bypass [place] [address] úNñez with a ANGULO to LAD and reverse SVG to obtuse marginal branch half-way (current) use of 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 (Chronic) Z79.01 Acute on chronic systolic CHF (congestive heart failure) (Chronic) I50.23 Chronic kidney disease, stage 3 (Chronic) N18.3 Type 2 diabetes mellitus (Chronic) E11.9 History of breast cancer (Chronic) Z85.3 History of renal cell carcinoma (Chronic) Z85.528 Hypertension (Chronic) I10 Allergies erythromycin base Adverse Reaction (Verified 11/05/17 13:40) Vomiting meperidine [From Demerol] Adverse Reaction (Verified 11/05/17 13:40) Vomiting Home Medications: Ambulatory Orders Medication Instructions Recorded Furosemide 40 mg PO DAILY 12/23/16 Niacin 250 mg PO DAILY 12/23/16 Omeprazole [Prilosec] 20 mg PO DAILY 12/23/16 alprazolam 0.5 mg tablet 0.5 mg PO QHS tab 03/19/17 metoprolol tartrate 25 mg tablet 25 mg PO BID 03/19/17 warfarin 3 mg tablet 3 mg PO SUMOTU 03/19/17 Metformin HCl [Glucophage] 500 mg PO DAILY 03/31/17 Warfarin [Coumadin (PBKC)] 1.5 mg PO WETHFRSA 03/31/17 amiodarone 200 mg tablet 200 mg PO DAILY 90 Days #90 tab 04/19/17 Aspirin E.C. [Ecotrin] 81 mg PO DAILY 11/05/17 C,E,Zinc,Copper 11/Ptkgp8f/Lut 1 tablet PO DAILY 11/05/17 [Ocuvite Adult 50 Plus Softgel] Calcium Carbonate/Vitamin D3 1 tab PO DAILY 11/05/17 [Calcium 600-Vit D3 200 Tablet] Carboxymethylcellulose Sodium 1 drop EACH EYE TID 11/05/17 [Refresh Tears] Ferrous Sulfate [Iron] 325 mg PO DAILY 11/05/17 Magnesium Oxide 400 mg PO DAILY 11/05/17 Naproxen 500 mg PO BID PRN PRN 11/05/17 Surgical History: Surgical History (Last Reviewed 11/05/17 @ 17:34 by Adarsh Gipson DO) H/O coronary artery bypass surgery (Acute) Z95.1 S/P bypass [place] [address] 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 marginal branch Presence of implantable cardioverter-defibrillator (ICD) (Chronic) Onset Date : ~05/10/09 Z95.810 [employer] 05/10/2009 Status post right nephrectomy (Chronic) Status post implantation of automatic cardioverter/defibrillator (AICD) (Chronic ) Z95.810 History of left heart catheterization Onset Date: ~12/25/16 Z98.890 History of mitral valve replacement Z95.2 Mitral Valve Replacement with a 27mm [employer] Olegario bioprosthesis @ [facility] by Dr. Núñez History of partial mastectomy of left breast Onset Date: ~11/2003 Z98.890, Z90.12 History of total abdominal hysterectomy Z98.890, Z90.710 Hx of CABG Onset Date: ~12/2016 Z95.1 x2 ANGULO to LAD, SVG-OM; W/LAE occlusion with 35-mm Atricure Clip Hx of cholecystectomy Z98.890, Z90.49 Surgical History: appendectomy, cholecystectomy, tonsillectomy, - - hysterectomy , mastectomy, nephrectomy Smoking Status: Never smoker - *Family History Maternal Family History: Family History (Last Reviewed 11/05/17 @ 17:35 by Adarsh Gipson DO) Brother CAD (coronary artery disease) History Items: No pertinent history Paternal Family History: Family History (Last Reviewed 11/05/17 @ 17:35 by Adarsh Gipson DO) Brother CAD (coronary artery disease) History Items: No pertinent history Review of Systems Constitutional: Denies: Anorexia, Chills, Fever Eyes: Denies: Blurred vision, Double vision HEENT: Denies: Head Aches, Sinus Congestion, Sinus Drainage Cardiovascular: Reports: Edema, Orthopnea. Denies: Chest Pain, Palpitations Respiratory: Reports: Shortness of Breath. Denies: Cough Gastrointestinal: Denies: Abdominal Pain, Nausea, Vomiting Genitourinary: Reports: - - Decreased urinary output. Denies: Dysuria Musculoskeletal: Denies: Joint Pain, Joint Tenderness Skin: Denies: Rash, Wounds Neurological: Denies: Numbness, Tingling, Focal weakness Psychiatric: Denies: Anxiety, Depression Hematologic/ Lymphatic: Denies: Easy Bruising, Easy Bleeding, Hx of blood clot Comment: All review of systems are negative except as mentioned in the history of present illness and the other review of systems. VTE Information - Inpt Only VTE Present on Admission: No VTE Pharm Prophylaxis ordered?: Yes Patient Problems: Active and Suspected Problems (Last Reviewed 11/05/17 @ 17:34 by Adarsh Gipson DO) CHF (congestive heart failure) (Acute) - Physical Exam General: Alert, Cooperative, No apparent distress HEENT: Atraumatic, Normocephalic Oral: Moist Mucosa Neck: No JVD, No Nodes, Thyroid Normal Size and Texture Lungs: Clear to auscultation, Normal air movement, No rhonchi, No wheeze Cardiovascular: Regular rate, Regular Rhythm, Normal S1, Normal S2, No murmurs Abdomen: Bowel Sounds Present, Soft, Non Tender, Non-Distended, No Hepato- splenomegaly Extremities: No Calf Tenderness, Edema - Taut edema extending in the entire lower extremities up into her buttocks. Skin: No rashes, No breakdown Musculoskeletal: No Tenderness to Palpation of Joints or Extremities, No Muscle Wasting Psych/Mental Status: Normal Affect, Appropriate Vital Signs Temp Pulse Resp BP Pulse Ox 36.6 C 78 20 H 123/73 H 93 11/05/17 14:56 11/05/17 14:56 11/05/17 14:56 11/05/17 14:56 11/05/17 14:56 Oxygen Delivery Method Room Air Weight: 104.7 kg Body Mass Index (BMI) 38.4 Laboratory Tests Past 24 Hrs 11/05/17 11/05/17 11/05/17 15:40 15:40 15:40 WBC 6.0 RBC 4.43 Hgb 9.8 L Hct 35.6 L MCV 80.4 L MCH 22.1 L MCHC 27.5 L RDW 22.1 H RDW Differential 64.7 H Plt Count 136 L MPV 9.1 Immature Gran % (Auto) 0.200 Neut % (Auto) 81.5 H Lymph % (Auto) 8.6 L [place] % (Auto) 8.5 Eos % (Auto) 1.0 Baso % (Auto) 0.2 Absolute Neuts (auto) 4.9 Absolute Lymphs (auto) 0.52 L Total Counted Not Reportable Differential Comment SCANNED Anisocytosis 1+ Microcytosis RARE Ovalocytes 1+ Schistocytes RARE PT INR Sodium 143 Potassium 5.6 H Chloride 106 Carbon Dioxide 29.0 Anion Gap 8 BUN 31 H Creatinine 2.23 H Estim Creat Clear Calc 17.50 Est GFR (MDRD) Af Amer 27 L Est GFR (MDRD) Non-Af 22 L BUN/Creatinine Ratio 13.9 Glucose 106 Calcium 8.9 Troponin I < 0.015 B-Natriuretic Peptide 694.3 H 11/05/17 15:40 WBC RBC Hgb Hct MCV MCH MCHC RDW RDW Differential Plt Count MPV Immature Gran % (Auto) Neut % (Auto) Lymph % (Auto) [place] % (Auto) Eos % (Auto) Baso % (Auto) Absolute Neuts (auto) Absolute Lymphs (auto) Total Counted Differential Comment Anisocytosis Microcytosis Ovalocytes Schistocytes PT 26.4 H INR 2.4 Sodium Potassium Chloride Carbon Dioxide Anion Gap BUN Creatinine Estim Creat Clear Calc Est GFR (MDRD) Af Amer Est GFR (MDRD) Non-Af BUN/Creatinine Ratio Glucose Calcium Troponin I B-Natriuretic Peptide Chest x-ray personally reviewed and showed no evidence of any pulmonary edema. AICD in place. Assessment/Plan All Active Problems (Last Reviewed 11/05/17 @ 17:34 by Adarsh Gipson DO) CHF (congestive heart failure) (Acute) H/O coronary artery bypass surgery (Acute) 1. Acute CHF exacerbation * I do not see any results of echocardiograms in our system to note this is preserved or reduced ejection fraction though I suspect the latter. * Patient has been started on a Bumex drip in the emergency room and will continue * Patient is on metoprolol tartrate * Given the patient's chronic kidney disease she is not a candidate for EDUARDO inhibitors or angiotensin receptor blockers * Check an echocardiogram * Consultation to cardiology * Should be noted that the patient's weight in September 26 was 98.4 kg and now it is 104.7 kg. 2. Chronic kidney disease stage IV * Creatinine appears to be at baseline * Monitor closely while the patient is on a bumetanide drip * Consider nephrology consultation if her creatinine starts to get worse 3. Diabetes mellitus type 2 * Discontinue metformin given the CHF * For now, patient just be on a sliding scale of NovoLog 4. DVT prophylaxis with heparin 5. Advanced directives: Patient wishes to be DNR Comfort Care arrest and no intubation. Patient is aware that these decisions can be changed at a later point if she so desires. Code Visit Inpatient E&M: 96799 Init Hosp L3
[2017-11-05 17:48] VITALS: BMI 38.1
[2017-11-05 18:35] VITALS: BP 110/68; PULSE 71; RESP 18; TEMP 36.5; O2SAT 97
[2017-11-05 18:46] LABS: Bedside Glucose 84 mg/dL (70-110)
[2017-11-05 18:51] VITALS: PULSE 76
[2017-11-05 21:52] VITALS: BP 101/64; PULSE 81; RESP 18; TEMP 36.6; O2SAT 99
[2017-11-05] MEDS: ALPRAZolam 0.5 MG Tablet PO (21:56)
[2017-11-05 22:06] LABS: Bedside Glucose 133 mg/dL (70-110)
[2017-11-05] MEDS: Magnesium Oxide 400 MG Tablet PO (22:44)
[2017-11-05] MEDS: Aspirin E.C. 81 MG Tablet PO (22:44)
[2017-11-05 23:08] VITALS: PULSE 84
[2017-11-05 23:19] VITALS: O2SAT 98
[2017-11-06] VITALS (12 sets, daily range): BP systolic 93–110; BP diastolic 50–68; PULSE 76–85; RESP 16–20; TEMP 36.4–37.6; O2SAT 93–97
--- NOTE | 2017-11-06 05:55 | ECHOD_ITS ---
Reason For Study: CHF Procedure This was a 2D Doppler, Color Flow transthoracic echocardiogram. Exam performed portable in patient room. Left Ventricle Moderately dilated left ventricle. The estimated ejection fraction is 20-25 %. Paced septal motion. There is severe global hypokinesis of the left ventricle. Right Ventricle Moderately dilated right ventricle. ICD or pacer leads identified within the right ventricle. Mild to moderate global right ventricular systolic dysfunction. Atria The left atrium is severely enlarged. Mitral Valve Moderate mitral valve stenosis. Peak transmitral valve gradient 13 mmHg. Mean transmitral valve gradient 7 mmHg. Bioprosthetic mitral valve. Tricuspid Valve Normal tricuspid valve. Moderately severe (3+) eccentric tricuspid valve insufficiency. Right ventricular systolic pressure estimated to be 25 mmHg. Aortic Valve Trisinus/trileaflet aortic valve. Pulmonic Valve Normal pulmonic valve. Great Vessels Normal aortic root. Normal arch. The inferior vena cava is dilated. Inferior vena cava collapse with sniff. Pericardium/Pleural No pericardial effusion. MMode/2D Measurements & Calculations LVIDd: 5.0 cm IVSd: 1.0 cm LVOT diam: 2.1 cm LVIDs: 4.2 cm LVPWd: 1.1 cm LVOT area: 3.3 cm2 RVDd: 4.3 cm FS: 15.2 % Ao root diam: 3.4 cm LAV(MOD-sp4): 74.7 ml EDV(MOD-sp4): 93.8 ml LA dimension: 4.9 cm ESV(MOD-sp4): 61.4 ml EF(MOD-sp4): 34.5 % EDV(MOD-sp2): 97.8 ml SV(MOD-sp4): 32.4 ml SV(MOD-sp2): 41.1 ml EF(MOD-sp2): 42.0 % LA A4 area: 23.6 cm2 RA A4 area: 18.6 cm2 Doppler Measurements & Calculations MV V2 max: 181.4 cm/sec Ao V2 max: 157.9 cm/sec LV V1 max: 105.3 cm/sec MV max P.3 mmHg Ao max P.0 mmHg LV V1 max P.4 mmHg MV V2 mean: 130.4 cm/sec Ao V2 mean: 112.9 cm/sec LV V1 mean P.1 mmHg MV mean P.4 mmHg Ao mean P.6 mmHg LV V1 mean: 66.7 cm/sec MV V2 VTI: 45.2 cm Ao V2 VTI: 28.4 cm LV V1 VTI: 18.7 cm MVA(VTI): 1.4 cm2 NANDO(I,D): 2.2 cm2 NANDO(V,D): 2.2 cm2 SV(LVOT): 62.0 ml PA V2 max: 87.5 cm/sec TR max gwendolyn: 224.5 cm/sec TR max P.2 mmHg Interpretation Summary The estimated ejection fraction is 20-25 %. There is severe global hypokinesis of the left ventricle. Moderately dilated right ventricle. Mild to moderate global right ventricular systolic dysfunction. The left atrium is severely enlarged. Bioprosthetic mitral valve. Moderate bioprosthetic induced mitral valve stenosis. Peak transmitral valve gradient 13 mmHg. Mean transmitral valve gradient 7 mmHg. Moderately severe (3+) eccentric tricuspid valve insufficiency. Right ventricular systolic pressure estimated to be 25 mmHg, but probably underestimated given eccentric nature of TR. Compared to echo report dated 10/26/2016, LV function has remained the same, but pt now has moderate to severe TR. Ordering Physician: Adarsh Gipson Referring Physician: EVA ROB Performed By: Mindi Kevin, RDCS, RVT
[2017-11-06 06:01] LABS: International Normalized Ratio 2.7; Prothrombin Time (Protime)PT. 28.8 SECONDS (11.7-14.9)
[2017-11-06 06:31] LABS: Anion Gap 9 (5-15); BUN 30 mg/dL (7-18); BUN/Creat Ratio 14.1 RATIO (10-20); Calcium,Total 8.4 mg/dL (8.5-10.1); Chloride 105 mmol/L (98-107); Creatinine, Serum 2.13 mg/dL (0.55-1.02); EST Glomerular Filtration Rate 24 mL/min (>60); Est Glom Filt Rate - Afr Amer 29 mL/min (>60); Estimated Creatinine Clearance 18.32 ml/min; Glucose 87 mg/dL (74-106); Potassium 3.9 mmol/L (3.5-5.1); Sodium Level 144 mmol/L (136-145)
[2017-11-06 07:00] LABS: Bedside Glucose 84 mg/dL (70-110)
[2017-11-06] MEDS: Bumetanide 12.5 MG in CONTAINER,EMPTY 1 BAG 2 MG CONT INF (08:00)
--- NOTE | 2017-11-06 08:32 | NURSING ---
Spoke with Abdullahi in pharmacy- next scheduled bag of bumex not due until 1544. Current bag empty. Ok to do unscheduled dose at this time.
[2017-11-06] MEDS: Ferrous Sulfate 325 MG Tablet PO (08:43)
[2017-11-06] MEDS: Calcium Carb/Vitamin D 1 TABLET Tablet PO (08:43)
[2017-11-06] MEDS: Glucerna Shake 120 ML LIQUID PO ×3 (08:45→17:07)
[2017-11-06] MEDS: Pantoprazole Sodium 20 MG Tablet PO (10:22)
[2017-11-06] MEDS: Amiodarone 200 MG Tablet PO (10:22)
[2017-11-06] MEDS: Metoprolol Tartrate 25 MG Tablet PO (10:22)
--- NOTE | 2017-11-06 10:42 | PCM.CONS.C ---
Problem List (1) History of mitral valve repair Status: Acute (2) CHF (congestive heart failure) Status: Acute Qualifiers: Heart failure type: unspecified Heart failure chronicity: acute Qualified Code(s): I50.9 - Heart failure, unspecified (3) Ventricular tachyarrhythmia Status: Chronic (4) H/O coronary artery bypass surgery Status: Acute Comment: S/P bypass surgery [place] [address] 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 marginal branch (5) Presence of implantable cardioverter-defibrillator (ICD) Status: Chronic Comment: MYFLY 05/10/2009 (6) Secondary pulmonary arterial hypertension Status: Chronic (7) Ischemic cardiomyopathy Status: Chronic (8) Atherosclerosis of coronary artery of [place] heart without angina pectoris Status: Chronic Qualifiers: Coronary Disease-Associated Artery/Lesion type: [place] artery Qualified Code(s): I25.10 - Atherosclerotic heart disease of [place] coronary artery without angina pectoris Comment: S/P bypass surgery [place] [address] 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 marginal branch Reason for Consult Date of Consultation: 11/06/17 Reason for Consultation: Coronary artery disease, status post bypass, status post left atrial appendage ligation, status post mitral valve repair in December 2016 with a #27 mm [place] bioprosthesis, dilated cardiomyopathy, hypertension, hyperlipidemia, status post AICD placement. She also has a history of chronic renal insufficiency renal carcinoma status post nephrectomy. History of Present Illness: The patient is a 82 year old F with a history of hypertension, chronic renal insufficiency, status post nephrectomy after renal cancer, status post breast cancer, with a history of hypertension, hypercholesterolemia, coronary artery disease status post bypass surgery by Dr. Johnson in December 2016. At that time she received a ANGULO to the LAD and a saphenous vein graft to the obtuse marginal. In addition she underwent left atrial appendage ligation, and mitral valve repair with a #27 mm [place] bioprosthetic valve. She has a known history of cardiomyopathy and is status post AICD placement. Patient had several aborted episodes of nonsustained ventricular tachycardia requiring ATP. Her creatinine is 2.0. She was seen in our office yesterday with progressively worsening shortness of breath, orthopnea, PND, abdominal fullness, and progressive lower extremity edema up to her thighs. The patient was admitted through the emergency room yesterday placed on IV Bumex drip and received metolazone 2.5 mg ?1. Patient is diuresed quite nicely, and feels much better today. She still has some conversational dyspnea but is able to lay down flat. Her edema still present although improved over our visit yesterday. She is approximately -1900 cc out since admission. She is currently on a Bumex drip at 0.5 mg/h. On further history she denies any changes to her medications, is compliant with her medications, and denies any excessive fluid or salt intake. Repeat echo is pending to evaluate her LV function and mitral valve status. [] Past Medical History Allergies/Adverse Reactions: Allergies erythromycin base Adverse Reaction (Verified 11/05/17 13:40) Vomiting meperidine [From Demerol] Adverse Reaction (Verified 11/05/17 13:40) Vomiting Home Medications: Ambulatory Orders Medication Instructions Recorded Furosemide 40 mg PO DAILY 12/23/16 Niacin 250 mg PO DAILY 12/23/16 Omeprazole [Prilosec] 20 mg PO DAILY 12/23/16 alprazolam 0.5 mg tablet 0.5 mg PO QHS tab 03/19/17 metoprolol tartrate 25 mg tablet 25 mg PO BID 03/19/17 warfarin 3 mg tablet 3 mg PO SUMOTU 03/19/17 Metformin HCl [Glucophage] 500 mg PO DAILY 03/31/17 Warfarin [Coumadin ([facility])] 1.5 mg PO WETHFRSA 03/31/17 amiodarone 200 mg tablet 200 mg PO DAILY 90 Days #90 tab 04/19/17 Aspirin E.C. [Ecotrin] 81 mg PO DAILY 11/05/17 C,E,Zinc,Copper 11/Euvzo2b/Lut 1 tablet PO DAILY 11/05/17 [Ocuvite Adult 50 Plus Softgel] Calcium Carbonate/Vitamin D3 1 tab PO DAILY 11/05/17 [Calcium 600-Vit D3 200 Tablet] Carboxymethylcellulose Sodium 1 drop EACH EYE TID 11/05/17 [Refresh Tears] Ferrous Sulfate [Iron] 325 mg PO DAILY 11/05/17 Magnesium Oxide 400 mg PO DAILY 11/05/17 Naproxen 500 mg PO BID PRN PRN 11/05/17 Past Medical History (Chronic Problems): Chronic Problems (Last Reviewed 11/05/17 @ 17:34 by Adarsh Gipson DO) Ventricular tachyarrhythmia (Chronic) Presence of implantable cardioverter-defibrillator (ICD) (Chronic ~05/10/09) MYFLY 05/10/2009 Secondary pulmonary arterial hypertension (Chronic) Ischemic cardiomyopathy (Chronic) Atherosclerosis of coronary artery of [place] heart without angina pectoris (Chronic) S/P bypass surgery in [address] 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 marginal branch detention (current) use of 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 (Chronic) Acute on chronic systolic CHF (congestive heart failure) (Chronic) Chronic kidney disease, stage 3 (Chronic) Type 2 diabetes mellitus (Chronic) Status post right nephrectomy (Chronic) Status post implantation of automatic cardioverter/defibrillator (AICD) (Chronic) History of breast cancer (Chronic) History of renal cell carcinoma (Chronic) Hypertension (Chronic) Surgical History: appendectomy, cholecystectomy, tonsillectomy, - - hysterectomy, mastectomy, nephrectomy - *Family History Maternal Family History: Family History (Last Reviewed 11/05/17 @ 17:35 by Adarsh Gipson DO) Brother CAD (coronary artery disease) History Items: No pertinent history Paternal Family History: Family History (Last Reviewed 11/05/17 @ 17:35 by Adarsh Gipson DO) Brother CAD (coronary artery disease) History Items: No pertinent history Smoking Status: Never smoker Subjectve: Patient laying down flat, no acute distress. Objective: Vital Signs Temp Pulse Resp BP Pulse Ox 98.3 F 85 16 107/58 L 95 11/06/17 09:52 11/06/17 10:22 11/06/17 09:52 11/06/17 09:52 11/06/17 09:52 Oxygen Delivery Method Room Air Weight: 225 lb 8.526 oz Body Mass Index (BMI) 38.1 Intake and Output for Last 24 Hours 11/04/17 11/05/17 11/06/17 23:59 23:59 23:59 Intake Total 186 / 186 256.9 / 256.9 Output Total 1390 / 1390 1025 / 1025 Balance -1204 / -1204 -768.1 / -768.1 General: Awake, Alert, Oriented x 3 HEENT: PERRL, EOMI, Sclera Non Icteric Neck: Supple, Good ROM, No Lymph Node Enlargement Lungs: Diminished Masood Bases, Rales - Masood Bases Cardiovascular: Regular Rhythm, Normal S1, Normal S2, No Murmurs, No Rubs, No Gallops Vascular: No Carotid Bruits, Normal Femoral Pulses, Normal Radial Pulses, Normal Dorsalis Pedal Pulse, Normal Posterior Tibial Pulses Abdomen: Bowel Sounds Present, Soft, Non Tender, No HSM, No Organomegaly Extremities: No Cyanosis, No Clubbing, No edema Neurological: No Focal Motor or Sensory Deficit 11/06/17 05:32: PT 28.8 H, INR 2.7 11/06/17 05:32: Sodium 144, Potassium 3.9, Chloride 105, Carbon Dioxide 30.0, Anion Gap 9, BUN 30 H, Creatinine 2.13 H, Est GFR (MDRD) Af Amer 29 L, Est GFR (MDRD) Non-Af 24 L, BUN/Creatinine Ratio 14.1, Glucose 87, Calcium 8.4 L Rhythm: EKG: ECHO: Stress Test: Cardiac Cath: PCI: CT Surgery: Holter monitor: EPS: PPM: CXR: Chest CT Scan: Assessment/Plan 1. Ischemic cardiomyopathy: The patient has had progressively worsening fluid retention over the last several weeks to months. She has never really felt better after her bypass surgery in December 2016. I recommended that she continue her IV Lasix drip to facilitate IV diuresis in the range between 1.5 and 2 L per 24 hours. By my estimation she has several more liters left before she reaches her dry weight. At that time we can then switch her to p.o. Bumex therapy and possibly metolazone on a weekly or biweekly basis. Given her chronic renal insufficiency, she may require a higher level of diuretic therapy. Would recommend holding her metoprolol at this time as well given her acute on chronic LV dysfunction. Of also recommend that she undergo a repeat echocardiogram to evaluate her LV function, mitral valvular pressures, and pulmonary pressures as well. Her chest x-ray and mild pulmonary vascular redistribution but no overt pleural effusions. Recommend continuing 1500 cc fluid restriction and Yordy bandages on her legs to facilitate venous return. Once the patient has achieved her dry weight, we may consider either a noninvasive stress test to evaluate her bypass surgery or repeat catheterization. 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 In addition she would need to have her Coumadin held given her severe pulmonary hypertension and history of atrial fibrillation. Would also recommend continuing amiodarone therapy to avoid ventricular or atrial arrhythmias. 2. Hyperlipidemia: Unfortunately patient is unable to tolerate statins. Continue niacin. 3. Thank you very much for the opportunity to participate in the cardiac care of your patient. Consultation time between 10 and 10:30 AM. Code Visit Inpatient E&M: 26557 Subs Hosp L2
--- NOTE | 2017-11-06 10:46 | CON.PCM_ITS ---
Problem List (1) History of mitral valve repair Status: Acute (2) CHF (congestive heart failure) Status: Acute Qualifiers: Heart failure type: unspecified Heart failure chronicity: acute Qualified Code(s): I50.9 - Heart failure, unspecified (3) Ventricular tachyarrhythmia Status: Chronic (4) H/O coronary artery bypass surgery Status: Acute Comment: S/P bypass surgery in [address] 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 marginal branch (5) Presence of implantable cardioverter-defibrillator (ICD) Status: Chronic Comment: Narvalous 05/10/2009 (6) Secondary pulmonary arterial hypertension Status: Chronic (7) Ischemic cardiomyopathy Status: Chronic (8) Atherosclerosis of coronary artery of [place] heart without angina pectoris Status: Chronic Qualifiers: Coronary Disease-Associated Artery/Lesion type: [place] artery Qualified Code(s): I25.10 - Atherosclerotic heart disease of [place] coronary artery without angina pectoris Comment: S/P bypass surgery in [address] 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 marginal branch Reason for Consult Date of Consultation: 11/06/17 Reason for Consultation: Coronary artery disease, status post bypass, status post left atrial appendage ligation, status post mitral valve repair in December 2016 with a #27 mm [place] bioprosthesis, dilated cardiomyopathy, hypertension, hyperlipidemia, status post AICD placement. She also has a history of chronic renal insufficiency renal carcinoma status post nephrectomy. History of Present Illness: The patient is a 82 year old F with a history of hypertension, chronic renal insufficiency, status post nephrectomy after renal cancer, status post breast cancer, with a history of hypertension, hypercholesterolemia, coronary artery disease status post bypass surgery by Dr. Johnson in December 2016. At that time she received a ANGULO to the LAD and a saphenous vein graft to the obtuse marginal. In addition she underwent left atrial appendage ligation, and mitral valve repair with a #27 mm [place] bioprosthetic valve. She has a known history of cardiomyopathy and is status post AICD placement. Patient had several aborted episodes of nonsustained ventricular tachycardia requiring ATP. Her creatinine is 2.0. She was seen in our office yesterday with progressively worsening shortness of breath, orthopnea, PND, abdominal fullness, and progressive lower extremity edema up to her thighs. The patient was admitted through the emergency room yesterday placed on IV Bumex drip and received metolazone 2.5 mg ?1. Patient is diuresed quite nicely , and feels much better today. She still has some conversational dyspnea but is able to lay down flat. Her edema still present although improved over our visit yesterday. She is approximately -1900 cc out since admission. She is currently on a Bumex drip at 0.5 mg/h. On further history she denies any changes to her medications, is compliant with her medications, and denies any excessive fluid or salt intake. Repeat echo is pending to evaluate her LV function and mitral valve status. [] Past Medical History Allergies/Adverse Reactions: Allergies erythromycin base Adverse Reaction (Verified 11/05/17 13:40) Vomiting meperidine [From Demerol] Adverse Reaction (Verified 11/05/17 13:40) Vomiting Home Medications: Ambulatory Orders Medication Instructions Recorded Furosemide 40 mg PO DAILY 12/23/16 Niacin 250 mg PO DAILY 12/23/16 Omeprazole [Prilosec] 20 mg PO DAILY 12/23/16 alprazolam 0.5 mg tablet 0.5 mg PO QHS tab 03/19/17 metoprolol tartrate 25 mg tablet 25 mg PO BID 03/19/17 warfarin 3 mg tablet 3 mg PO SUMOTU 03/19/17 Metformin HCl [Glucophage] 500 mg PO DAILY 03/31/17 Warfarin [Coumadin ([facility])] 1.5 mg PO WETHFRSA 03/31/17 amiodarone 200 mg tablet 200 mg PO DAILY 90 Days #90 tab 04/19/17 Aspirin E.C. [Ecotrin] 81 mg PO DAILY 11/05/17 C,E,Zinc,Copper 11/Eybvo9z/Lut 1 tablet PO DAILY 11/05/17 [Ocuvite Adult 50 Plus Softgel] Calcium Carbonate/Vitamin D3 1 tab PO DAILY 11/05/17 [Calcium 600-Vit D3 200 Tablet] Carboxymethylcellulose Sodium 1 drop EACH EYE TID 11/05/17 [Refresh Tears] Ferrous Sulfate [Iron] 325 mg PO DAILY 11/05/17 Magnesium Oxide 400 mg PO DAILY 11/05/17 Naproxen 500 mg PO BID PRN PRN 11/05/17 Past Medical History (Chronic Problems): Chronic Problems (Last Reviewed 11/05/17 @ 17:34 by Adarsh Gipson DO) Ventricular tachyarrhythmia (Chronic) Presence of implantable cardioverter-defibrillator (ICD) (Chronic ~05/10/09) Narvalous 05/10/2009 Secondary pulmonary arterial hypertension (Chronic) Ischemic cardiomyopathy (Chronic) Atherosclerosis of coronary artery of [place] heart without angina pectoris ( Chronic) S/P bypass surgery in [address] 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 marginal branch [facility] (current) use of 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 (Chronic) Acute on chronic systolic CHF (congestive heart failure) (Chronic) Chronic kidney disease, stage 3 (Chronic) Type 2 diabetes mellitus (Chronic) Status post right nephrectomy (Chronic) Status post implantation of automatic cardioverter/defibrillator (AICD) (Chronic ) History of breast cancer (Chronic) History of renal cell carcinoma (Chronic) Hypertension (Chronic) Surgical History: appendectomy, cholecystectomy, tonsillectomy, - - hysterectomy , mastectomy, nephrectomy - *Family History Maternal Family History: Family History (Last Reviewed 11/05/17 @ 17:35 by Adarsh Gipson DO) Brother CAD (coronary artery disease) History Items: No pertinent history Paternal Family History: Family History (Last Reviewed 11/05/17 @ 17:35 by Adarsh Gipson DO) Brother CAD (coronary artery disease) History Items: No pertinent history Smoking Status: Never smoker Subjectve: Patient laying down flat, no acute distress. Objective: Vital Signs Temp Pulse Resp BP Pulse Ox 98.3 F 85 16 107/58 L 95 11/06/17 09:52 11/06/17 10:22 11/06/17 09:52 11/06/17 09:52 11/06/17 09:52 Oxygen Delivery Method Room Air Weight: 225 lb 8.526 oz Body Mass Index (BMI) 38.1 Intake and Output for Last 24 Hours 11/04/17 11/05/17 11/06/17 23:59 23:59 23:59 Intake Total 186 / 186 256.9 / 256.9 Output Total 1390 / 1390 1025 / 1025 Balance -1204 / -1204 -768.1 / -768.1 General: Awake, Alert, Oriented x 3 HEENT: PERRL, EOMI, Sclera Non Icteric Neck: Supple, Good ROM, No Lymph Node Enlargement Lungs: Diminished Masood Bases, Rales - Masood Bases Cardiovascular: Regular Rhythm, Normal S1, Normal S2, No Murmurs, No Rubs, No Gallops Vascular: No Carotid Bruits, Normal Femoral Pulses, Normal Radial Pulses, Normal Dorsalis Pedal Pulse, Normal Posterior Tibial Pulses Abdomen: Bowel Sounds Present, Soft, Non Tender, No HSM, No Organomegaly Extremities: No Cyanosis, No Clubbing, No edema Neurological: No Focal Motor or Sensory Deficit 11/06/17 05:32: PT 28.8 H, INR 2.7 11/06/17 05:32: Sodium 144, Potassium 3.9, Chloride 105, Carbon Dioxide 30.0, Anion Gap 9, BUN 30 H, Creatinine 2.13 H, Est GFR (MDRD) Af Amer 29 L, Est GFR ( MDRD) Non-Af 24 L, BUN/Creatinine Ratio 14.1, Glucose 87, Calcium 8.4 L Rhythm: EKG: ECHO: Stress Test: Cardiac Cath: PCI: CT Surgery: Holter monitor: EPS: PPM: CXR: Chest CT Scan: Assessment/Plan 1. Ischemic cardiomyopathy: The patient has had progressively worsening fluid retention over the last several weeks to months. She has never really felt better after her bypass surgery in December 2016. I recommended that she continue her IV Lasix drip to facilitate IV diuresis in the range between 1.5 and 2 L per 24 hours. By my estimation she has several more liters left before she reaches her dry weight. At that time we can then switch her to p.o. Bumex therapy and possibly metolazone on a weekly or biweekly basis. Given her chronic renal insufficiency, she may require a higher level of diuretic therapy. Would recommend holding her metoprolol at this time as well given her acute on chronic LV dysfunction. Of also recommend that she undergo a repeat echocardiogram to evaluate her LV function, mitral valvular pressures, and pulmonary pressures as well. Her chest x-ray and mild pulmonary vascular redistribution but no overt pleural effusions. Recommend continuing 1500 cc fluid restriction and Yordy bandages on her legs to facilitate venous return. Once the patient has achieved her dry weight, we may consider either a noninvasive stress test to evaluate her bypass surgery or repeat catheterization. 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 In addition she would need to have her Coumadin held given her severe pulmonary hypertension and history of atrial fibrillation. Would also recommend continuing amiodarone therapy to avoid ventricular or atrial arrhythmias. 2. Hyperlipidemia: Unfortunately patient is unable to tolerate statins. Continue niacin. 3. Thank you very much for the opportunity to participate in the cardiac care of your patient. Consultation time between 10 and 10:30 AM. Code Visit Inpatient E&M: 12883 Subs Hosp L2
--- NOTE | 2017-11-06 10:52 | PCM.PN.HOSP ---
Patient Problems: Active and Suspected Problems (Last Reviewed 11/05/17 @ 17:34 by Adarsh Gipson DO) CHF (congestive heart failure) (Acute) History of mitral valve repair (Acute) Subjective: Patient seen and examined. She was admitted yesterday for this office by the ED on account of lower extremity edema and BNP of 694. She has been managed for CHF exacerbation. She is being diuresed with bumetanide drip. Patient feels better and says shortness of breath is improved. Lower extremities edema is also better. She denies any fever or chills, any cough, chest pain, diarrhea vomiting. 12 point review of systems otherwise negative. Patient states that she was considering going to a snf before she came in because she lives alone could not take care of herself but is now reconsidering that because she feels better. Vitals/I&O's: Vital Signs Temp Pulse Resp BP Pulse Ox 98.3 F 85 16 107/58 L 95 11/06/17 09:52 11/06/17 10:22 11/06/17 09:52 11/06/17 09:52 11/06/17 09:52 Oxygen Delivery Method Room Air Weight: 225 lb 8.526 oz Body Mass Index (BMI) 38.1 Intake and Output for Last 24 Hours 11/04/17 11/05/17 11/06/17 23:59 23:59 23:59 Intake Total 186 / 186 256.9 / 256.9 Output Total 1390 / 1390 1025 / 1025 Balance -1204 / -1204 -768.1 / -768.1 General: Alert, Oriented x3, Cooperative, No apparent distress HEENT: Atraumatic, PERRLA, EOMI, Normocephalic Oral: Moist Mucosa Neck: Supple, No JVD, Negative Carotid Bruits Lungs: Clear to auscultation, Normal air movement, No rhonchi, No wheeze, No rales Cardiovascular: Regular rate, Regular Rhythm, Normal S1, Normal S2, No murmurs Abdomen: Bowel Sounds Present, Soft, Non Tender, Non-Distended, No Hepato-splenomegaly Extremities: No clubbing, No cyanosis, - - gross edema 3+ extending up to mid abdomen Skin: No rashes, No breakdown Musculoskeletal: No Tenderness to Palpation of Joints or Extremities Lymphatic: No Cervical, Supraclavicular, or Inguinal Adenopathy Neurological: Cranial nerves II-XII grossly intact, Motor Exam 5/5 strength throughout Psych/Mental Status: Normal Affect, Appropriate, Alert and oriented to time, place, person, mood and affect Laboratory Results 11/05/17 18:38: POC Glucose 84 11/05/17 21:50: POC Glucose 133 H 11/06/17 05:32: PT 28.8 H, INR 2.7 11/06/17 05:32: Sodium 144, Potassium 3.9, Chloride 105, Carbon Dioxide 30.0, Anion Gap 9, BUN 30 H, Creatinine 2.13 H, Estim Creat Clear Calc 18.32, Est GFR (MDRD) Af Amer 29 L, Est GFR (MDRD) Non-Af 24 L, BUN/Creatinine Ratio 14.1, Glucose 87, Calcium 8.4 L 11/06/17 06:51: POC Glucose 84 Diagnostic Data Chest X-Ray 11/05/17 15:21 IMPRESSION: No acute cardiopulmonary process. There is no evidence of acute cardiogenic pulmonary edema. Electronically Signed: Hernan Tuyet, at 16:20 EDT Tel , Service support , Laboratory Results 11/06/17 11/06/17 11/06/17 06:51 05:32 05:32 PT 28.8 H INR 2.7 Sodium 144 Potassium 3.9 Chloride 105 Carbon Dioxide 30.0 Anion Gap 9 BUN 30 H Creatinine 2.13 H Estim Creat Clear Calc 18.32 Est GFR (MDRD) Af Amer 29 L Est GFR (MDRD) Non-Af 24 L BUN/Creatinine Ratio 14.1 Glucose 87 Calcium 8.4 L POC Glucose 84 Current Medications Acetaminophen (Tylenol) 650 mg PO Q6H PRN PRN PRN Reason: Mild Pain (1-3)/Temp > 100.7 F Alprazolam (Xanax) 0.5 mg PO QHS [facility] Last Admin: 11/05/17 21:56 Dose: 0.5 mg Amiodarone HCl (Cordarone) 200 mg PO DAILY [facility] Last Admin: 11/06/17 10:22 Dose: 200 mg Artificial Tears (Tears Naturale, Artificial Tears) 1 drop EACH EYE TID [facility] Last Admin: 11/06/17 06:08 Dose: 1 drop Aspirin (Ecotrin) 81 mg PO QHS [facility] Last Admin: 11/05/17 22:44 Dose: 81 mg Calcium/Vitamin D (Os-Inder 500mg + D) [facility] Last Admin: 11/06/17 08:43 Dose: 1 tablet Dextrose (D50w Syringe) 0 gm IV X1 PRN; Protocol PRN Reason: Hypoglycemia Ferrous Sulfate (Ferrous Sulfate) [facility] Last Admin: 11/06/17 08:43 Dose: 325 mg Glucagon () 1 mg IM .X1 PRN PRN Reason: Hypoglycemia Bumetanide 12.5 mg/ (Miscellaneous Information) 50 mls @ 2 mls/hr CONT INF .Q25H [facility] PRN Reason: 0.5 MG/HR Stop: 11/06/17 16:39 Last Admin: 11/06/17 08:00 Dose: 2 mls/hr Insulin Human Lispro (Humalog Kwikpen (Bkc)) 0 unit SQ TIDAC [facility] PRN Reason: Protocol Last Admin: 11/06/17 08:41 Dose: Not Given Magnesium Hydroxide (Milk Of Magnesia) 30 ml PO DAILY PRN PRN Reason: Constipation Magnesium Oxide (Mag-Ox 400) 400 mg PO QHS [facility] Last Admin: 11/05/17 22:44 Dose: 400 mg Metoprolol Tartrate (Lopressor (Beta Isa)) 25 mg PO BID [facility] Last Admin: 11/06/17 10:22 Dose: 25 mg Multivitamins/Minerals (Healthy Eyes) 1 tablet PO DAILY [facility] Last Admin: 11/06/17 10:23 Dose: 1 tablet Niacin (Niacin Sr) 250 mg PO QHS [facility] Last Admin: 11/05/17 22:44 Dose: 250 mg Nutritional Formula (Lactose Free) (Glucerna Shake) 120 ml PO TIDCM [facility] Last Admin: 11/06/17 08:45 Dose: 120 ml Ondansetron HCl (Zofran) 4 mg IV Q8H PRN PRN PRN Reason: NAUSEA Oxycodone HCl (Oxyir) 5 - 10 mg PO Q4H PRN PRN PRN Reason: MOD-SEVERE PAIN (4-10/10) Pantoprazole Sodium (Protonix) 20 mg PO DAILY [facility] Last Admin: 11/06/17 10:22 Dose: 20 mg Warfarin Sodium (Coumadin (Pbkc)) 3 mg PO SuMoTu@1700 [facility] PRN Reason: Protocol Warfarin Sodium 1 mg/ Warfarin (Sodium 0.5 mg) 1.5 mg PO WeThFrSa@1700 [facility] Medical Necessity - Tobacco Use Smoking Status: Never smoker Assessment/Plan All Active Problems (Last Reviewed 11/05/17 @ 17:34 by Adarsh Gipson DO) CHF (congestive heart failure) (Acute) History of mitral valve repair (Acute) H/O coronary artery bypass surgery (Acute) 1. Acute diastolic CHF exacerbation Patient currently on Bumex drip at 0.5 mg/h. Received 1 dose of metolazone in the ED yesterday. Feels better. Put out about 1.39 L yesterday and 1 L so far today. Weight is down from 229 pounds on admission to 225 pounds today. cardiology on board getting 2D echo today strict input output chart fluid restriction to 1500mls daily has an AICD in place 2. CKD IV Cr was 2.23 on admission, now down to 2.13. On Bumex drip, will continue. 3. Afib: currently rate and uncontrolled. On metoprolol and amiodarone. Will continue. Anticoagulated with coumadin. INR is 2.7 today Cardiology on board. 4. Type 2 diabetes mellitus Metformin held on account of CHF. On insulin sliding scale. Sugars well controlled. 5. CAD status post CABG: On aspirin and statin. Metoprolol 25 mg twice daily. 6. Hypertension: on metoprolol 7. Renal cancer s/p nephrectomy: stable 8. DVT Prophylaxis: Already anticoagulated with Coumadin. INR therapeutic. CODE STATUS: DNR CCA This note was generated with [employer] dictation software. It may contain incorrect words, spelling, and punctuation that were not noted in checking the note before signing. Code Visit Inpatient E&M: 05876 Subs Hosp L3
--- NOTE | 2017-11-06 11:02 | PN_ITS ---
Patient Problems: Active and Suspected Problems (Last Reviewed 11/05/17 @ 17:34 by Adarsh Gipson DO) CHF (congestive heart failure) (Acute) History of mitral valve repair (Acute) Subjective: Patient seen and examined. She was admitted yesterday for this office by the ED on account of lower extremity edema and BNP of 694. She has been managed for CHF exacerbation. She is being diuresed with bumetanide drip. Patient feels better and says shortness of breath is improved. Lower extremities edema is also better. She denies any fever or chills, any cough, chest pain, diarrhea vomiting. 12 point review of systems otherwise negative. Patient states that she was considering going to a chcf before she came in because she lives alone could not take care of herself but is now reconsidering that because she feels better. Vitals/I&O's: Vital Signs Temp Pulse Resp BP Pulse Ox 98.3 F 85 16 107/58 L 95 11/06/17 09:52 11/06/17 10:22 11/06/17 09:52 11/06/17 09:52 11/06/17 09:52 Oxygen Delivery Method Room Air Weight: 225 lb 8.526 oz Body Mass Index (BMI) 38.1 Intake and Output for Last 24 Hours 11/04/17 11/05/17 11/06/17 23:59 23:59 23:59 Intake Total 186 / 186 256.9 / 256.9 Output Total 1390 / 1390 1025 / 1025 Balance -1204 / -1204 -768.1 / -768.1 General: Alert, Oriented x3, Cooperative, No apparent distress HEENT: Atraumatic, PERRLA, EOMI, Normocephalic Oral: Moist Mucosa Neck: Supple, No JVD, Negative Carotid Bruits Lungs: Clear to auscultation, Normal air movement, No rhonchi, No wheeze, No rales Cardiovascular: Regular rate, Regular Rhythm, Normal S1, Normal S2, No murmurs Abdomen: Bowel Sounds Present, Soft, Non Tender, Non-Distended, No Hepato- splenomegaly Extremities: No clubbing, No cyanosis, - - gross edema 3+ extending up to mid abdomen Skin: No rashes, No breakdown Musculoskeletal: No Tenderness to Palpation of Joints or Extremities Lymphatic: No Cervical, Supraclavicular, or Inguinal Adenopathy Neurological: Cranial nerves II-XII grossly intact, Motor Exam 5/5 strength throughout Psych/Mental Status: Normal Affect, Appropriate, Alert and oriented to time, place, person, mood and affect Laboratory Results 11/05/17 18:38: POC Glucose 84 11/05/17 21:50: POC Glucose 133 H 11/06/17 05:32: PT 28.8 H, INR 2.7 11/06/17 05:32: Sodium 144, Potassium 3.9, Chloride 105, Carbon Dioxide 30.0, Anion Gap 9, BUN 30 H, Creatinine 2.13 H, Estim Creat Clear Calc 18.32, Est GFR (MDRD) Af Amer 29 L, Est GFR (MDRD) Non-Af 24 L, BUN/Creatinine Ratio 14.1, Glucose 87, Calcium 8.4 L 11/06/17 06:51: POC Glucose 84 Diagnostic Data Chest X-Ray 11/05/17 15:21 IMPRESSION: No acute cardiopulmonary process. There is no evidence of acute cardiogenic pulmonary edema. Electronically Signed: Hernan Tuyet, at 16:20 EDT Tel , Service support , Laboratory Results 11/06/17 11/06/17 11/06/17 06:51 05:32 05:32 PT 28.8 H INR 2.7 Sodium 144 Potassium 3.9 Chloride 105 Carbon Dioxide 30.0 Anion Gap 9 BUN 30 H Creatinine 2.13 H Estim Creat Clear Calc 18.32 Est GFR (MDRD) Af Amer 29 L Est GFR (MDRD) Non-Af 24 L BUN/Creatinine Ratio 14.1 Glucose 87 Calcium 8.4 L POC Glucose 84 Current Medications Acetaminophen (Tylenol) 650 mg PO Q6H PRN PRN PRN Reason: Mild Pain (1-3)/Temp > 100.7 F Alprazolam (Xanax) 0.5 mg PO QHS [facility] Last Admin: 11/05/17 21:56 Dose: 0.5 mg Amiodarone HCl (Cordarone) 200 mg PO DAILY [facility] Last Admin: 11/06/17 10:22 Dose: 200 mg Artificial Tears (Tears Naturale, Artificial Tears) 1 drop EACH EYE TID [facility] Last Admin: 11/06/17 06:08 Dose: 1 drop Aspirin (Ecotrin) 81 mg PO QHS [facility] Last Admin: 11/05/17 22:44 Dose: 81 mg Calcium/Vitamin D (Os-Inder 500mg + D) [facility] Last Admin: 11/06/17 08:43 Dose: 1 tablet Dextrose (D50w Syringe) 0 gm IV X1 PRN; Protocol PRN Reason: Hypoglycemia Ferrous Sulfate (Ferrous Sulfate) 325 [facility] Last Admin: 11/06/17 08:43 Dose: 325 mg Glucagon () 1 mg IM .X1 PRN PRN Reason: Hypoglycemia Bumetanide 12.5 mg/ (Miscellaneous Information) 50 mls @ 2 mls/hr CONT INF .Q25H [facility] PRN Reason: 0.5 MG/HR Stop: 11/06/17 16:39 Last Admin: 11/06/17 08:00 Dose: 2 mls/hr Insulin Human Lispro (Humalog Kwikpen (Bkc)) 0 unit SQ TIDAC [facility] PRN Reason: Protocol Last Admin: 11/06/17 08:41 Dose: Not Given Magnesium Hydroxide (Milk Of Magnesia) 30 ml PO DAILY PRN PRN Reason: Constipation Magnesium Oxide (Mag-Ox 400) 400 mg PO QHS [facility] Last Admin: 11/05/17 22:44 Dose: 400 mg Metoprolol Tartrate (Lopressor (Beta Isa)) 25 mg PO BID [facility] Last Admin: 11/06/17 10:22 Dose: 25 mg Multivitamins/Minerals (Healthy Eyes) 1 tablet PO DAILY [facility] Last Admin: 11/06/17 10:23 Dose: 1 tablet Niacin (Niacin Sr) 250 mg PO QHS [facility] Last Admin: 11/05/17 22:44 Dose: 250 mg Nutritional Formula (Lactose Free) (Glucerna Shake) 120 ml PO TIDCM [facility] Last Admin: 11/06/17 08:45 Dose: 120 ml Ondansetron HCl (Zofran) 4 mg IV Q8H PRN PRN PRN Reason: NAUSEA Oxycodone HCl (Oxyir) 5 - 10 mg PO Q4H PRN PRN PRN Reason: MOD-SEVERE PAIN (4-10/10) Pantoprazole Sodium (Protonix) 20 mg PO DAILY [facility] Last Admin: 11/06/17 10:22 Dose: 20 mg Warfarin Sodium (Coumadin (Pbkc)) 3 mg PO SuMoTu@1700 [facility] PRN Reason: Protocol Warfarin Sodium 1 mg/ Warfarin (Sodium 0.5 mg) 1.5 mg PO WeThFrSa@1700 [facility] Medical Necessity - Tobacco Use Smoking Status: Never smoker Assessment/Plan All Active Problems (Last Reviewed 11/05/17 @ 17:34 by Adarsh Gipson DO) CHF (congestive heart failure) (Acute) History of mitral valve repair (Acute) H/O coronary artery bypass surgery (Acute) 1. Acute diastolic CHF exacerbation * Patient currently on Bumex drip at 0.5 mg/h. Received 1 dose of metolazone in the ED yesterday. * Feels better. Put out about 1.39 L yesterday and 1 L so far today. Weight is down from 229 pounds on admission to 225 pounds today. * cardiology on board * getting 2D echo today * strict input output chart * fluid restriction to 1500mls daily * has an AICD in place * 2. CKD IV * Cr was 2.23 on admission, now down to 2.13. * On Bumex drip, will continue. * 3. Afib: * currently rate and uncontrolled. * On metoprolol and amiodarone. Will continue. * Anticoagulated with coumadin. INR is 2.7 today * Cardiology on board. * 4. Type 2 diabetes mellitus * Metformin held on account of CHF. On insulin sliding scale. Sugars well controlled. * 5. CAD status post CABG: On aspirin and statin. Metoprolol 25 mg twice daily. 6. Hypertension: on metoprolol 7. Renal cancer s/p nephrectomy: stable 8. DVT Prophylaxis: Already anticoagulated with Coumadin. INR therapeutic. CODE STATUS: DNR CCA This note was generated with [employer] dictation software. It may contain incorrect words, spelling, and punctuation that were not noted in checking the note before signing. Code Visit Inpatient E&M: 15119 [facility] Hosp L3
[2017-11-06 12:35] LABS: Bedside Glucose 118 mg/dL (70-110)
--- NOTE | 2017-11-06 13:06 | CASEMGMT ---
Face to Face with patient for initial transition planning/care coordination assessment. RN DILAN introduced self and role at [facility], pt voices understanding and consents to assessment at this time. Pt is sitting up in bed in no distress at this time. Pt is A/O x4 at this time and answers all questions appropriately at this time. Care providers, pharmacy, and demographics verified. See attached link. Pt voices no further concerns/needs at this time. Advised pt to ask for CM if any further questions/concerns/needs arise, voices understanding. Referral to [facility], voices understanding. PLAN: TBD SStbrian SERRANO CM
[2017-11-06] MEDS: Magnesium Hydroxide 30 ML UDC PO (14:29)
--- NOTE | 2017-11-06 15:30 | CASEMGMT ---
SW called patient's daughter, Joann and discussed d/c plan per patient's request. She said they would like to try [facility]. LORENA told her SW will make a referral and follow for d/c planning. Armida LEW
[2017-11-06 17:05] LABS: Bedside Glucose 112 mg/dL (70-110)
[2017-11-06] MEDS: Aspirin E.C. 81 MG Tablet PO (21:35)
[2017-11-06] MEDS: Magnesium Oxide 400 MG Tablet PO (21:35)
[2017-11-06] MEDS: ALPRAZolam 0.5 MG Tablet PO (21:36)
[2017-11-06] MEDS: Acetaminophen 325 MG Tablet 650 MG PO (23:34)
[2017-11-07] VITALS (13 sets, daily range): BP systolic 101–105; BP diastolic 51–61; PULSE 78–92; RESP 15–18; TEMP 36.5–36.8; O2SAT 93–96
[2017-11-07 00:06] LABS: Bedside Glucose 144 mg/dL (70-110)
[2017-11-07 07:06] LABS: Bedside Glucose 101 mg/dL (70-110)
[2017-11-07 08:29] LABS: Anion Gap 3 (5-15); BUN 32 mg/dL (7-18); BUN/Creat Ratio 14.1 RATIO (10-20); Calcium,Total 8.3 mg/dL (8.5-10.1); Chloride 103 mmol/L (98-107); Creatinine, Serum 2.27 mg/dL (0.55-1.02); EST Glomerular Filtration Rate 22 mL/min (>60); Est Glom Filt Rate - Afr Amer 27 mL/min (>60); Estimated Creatinine Clearance 17.19 ml/min; Glucose 92 mg/dL (74-106); Potassium 3.7 mmol/L (3.5-5.1); Sodium Level 142 mmol/L (136-145)
[2017-11-07 08:31] LABS: Absolute Lymphocyte Count 0.78 X10^3/ul (0.83-4.51); Absolute Neutrophil Count 3.1 X10^3/uL (2.0-7.7); Basophil# 0.01 X10^3/uL; Basophil% 0.2 % (0-1); Eosinophil# 0.07 X10^3/uL; Eosinophils% 1.6 % (0-5); Hematocrit 33.5 % (37-47); Hemoglobin 9.4 g/dl (12.0-15.0); Lymphocyte # 0.78 X10^3/ul (4.0); Lymphocyte % 17.3 % (19-41); Mean Corp Hgb Conc 28.1 g/gl (32-36); Mean Corpuscular Hgb 22.5 pg (27.0-32.0); Mean Corpuscular Volume 80.1 fL (81-99); Mean Platelet Vol. 9.1 fl (6.2-12.0); Monocyte% 11.1 % (0-10); Neutrophil # 3.13 X10^3/uL (2.7-7.7); Neutrophil % 69.6 % (47-70); Platelet Count 145 K/mm3 (150-450); RBC Distribution Width CV 22.2 % (11.6-14.6); RBC Distribution Width SD 63.9 fl (35.1-43.9); Red Blood Count 4.18 M/mm3 (4.2-5.4); White Blood Count 4.5 K/mm3 (4.4-11.0)
[2017-11-07 08:34] LABS: Differential Indicated SCAN CRITERIA MET; POSITIVE COUNT NO; POSITIVE DIFFERENTIAL NO; POSITIVE MORPHOLOGY YES
[2017-11-07] MEDS: Glucerna Shake 120 ML LIQUID PO ×3 (09:45→17:06)
[2017-11-07] MEDS: Ferrous Sulfate 325 MG Tablet PO (09:46)
[2017-11-07] MEDS: Amiodarone 200 MG Tablet PO (09:46)
[2017-11-07] MEDS: Calcium Carb/Vitamin D 1 TABLET Tablet PO (09:46)
[2017-11-07] MEDS: Pantoprazole Sodium 20 MG Tablet PO (09:46)
[2017-11-07] MEDS: Bumetanide 25 MG in CONTAINER,EMPTY 1 BAG CONT INF (10:10)
--- NOTE | 2017-11-07 11:01 | PCM.PN.HOSP ---
Patient Problems: Active and Suspected Problems (Last Reviewed 11/05/17 @ 17:34 by Adarsh Gipson DO) CHF (congestive heart failure) (Acute) History of mitral valve repair (Acute) Subjective: Patient seen and examined. She complains of pain in her thighs after she had a strep swallowing yesterday. She does not feel short of breath and thinks edema is getting better. She denies any fever or chills, any cough or chest shortness of breath, abdominal pain, any diarrhea vomiting. 12 point review of systems otherwise negative. Patient states she would want to go to a custodial as she does not think she can take care of herself at home. Vitals/I&O's: Vital Signs Temp Pulse Resp BP Pulse Ox 97.7 F L 80 16 101/51 L 93 11/07/17 09:29 11/07/17 09:29 11/07/17 09:29 11/07/17 09:29 11/07/17 09:29 Oxygen Delivery Method Room Air Weight: 216 lb 4.375 oz Body Mass Index (BMI) 38.1 Intake and Output for Last 24 Hours 11/05/17 11/06/17 11/07/17 23:59 23:59 23:59 Intake Total 186 / 186 1158.9 / 1158.9 71.3 / 71.3 Output Total 1390 / 1390 4650 / 4650 675 / 675 Balance -1204 / -1204 -3491.1 / -3491.1 -603.7 / -603.7 General: Alert, Oriented x3, Cooperative, No apparent distress HEENT: Atraumatic, PERRLA, EOMI, Normocephalic Oral: Moist Mucosa Neck: Supple, No JVD, Negative Carotid Bruits Lungs: Clear to auscultation, Normal air movement, No rhonchi, No wheeze, No rales Cardiovascular: Regular rate, Regular Rhythm, Normal S1, Normal S2, No murmurs Abdomen: Bowel Sounds Present, Soft, Non Tender, Non-Distended, No Hepato-splenomegaly Extremities: No clubbing, No cyanosis, - - bilateral LE pitting pedal edema up to thighs, it is improving. in GALINA stockings Skin: No rashes, No breakdown Musculoskeletal: No Tenderness to Palpation of Joints or Extremities Lymphatic: No Cervical, Supraclavicular, or Inguinal Adenopathy Neurological: Cranial nerves II-XII grossly intact, Neuro grossly intact, Motor Exam 5/5 strength throughout Psych/Mental Status: Normal Affect, Alert and oriented to time, place, person, mood and affect Laboratory Results 11/06/17 12:27: POC Glucose 118 H 11/06/17 16:58: POC Glucose 112 H 11/06/17 21:34: POC Glucose 144 H 11/07/17 07:02: POC Glucose 101 11/07/17 07:50: WBC 4.5, RBC 4.18 L, Hgb 9.4 L, Hct 33.5 L, MCV 80.1 L, MCH 22.5 L, MCHC 28.1 L, RDW 22.2 H, RDW Differential 63.9 H, Plt Count 145 L, MPV 9.1, Immature Gran % (Auto) 0.200, Neut % (Auto) 69.6, Lymph % (Auto) 17.3 L, [place] % (Auto) 11.1 H, Eos % (Auto) 1.6, Baso % (Auto) 0.2, Absolute Neuts (auto) 3.1, Absolute Lymphs (auto) 0.78 L, Total Counted Not Reportable, Differential Comment COMMENT 11/07/17 07:50: Sodium 142, Potassium 3.7, Chloride 103, Carbon Dioxide 36.0 H, Anion Gap 3 L, BUN 32 H, Creatinine 2.27 H, Estim Creat Clear Calc 17.19, Est GFR (MDRD) Af Amer 27 L, Est GFR (MDRD) Non-Af 22 L, BUN/Creatinine Ratio 14.1, Glucose 92, Calcium 8.3 L Current Medications Acetaminophen (Tylenol) 650 mg PO Q6H PRN PRN PRN Reason: Mild Pain (1-3)/Temp > 100.7 F Last Admin: 11/06/17 23:34 Dose: 650 mg Alprazolam (Xanax) 0.5 mg PO QHS [facility] Last Admin: 11/06/17 21:36 Dose: 0.5 mg Amiodarone HCl (Cordarone) 200 mg PO DAILY [facility] Last Admin: 11/07/17 09:46 Dose: 200 mg Artificial Tears (Tears Naturale, Artificial Tears) 1 drop EACH EYE TID [facility] Last Admin: 11/07/17 05:11 Dose: 1 drop Aspirin (Ecotrin) 81 mg PO QHS [facility] Last Admin: 11/06/17 21:35 Dose: 81 mg Calcium/Vitamin D (Os-Inder 500mg + D) [facility] Last Admin: 11/07/17 09:46 Dose: 1 tablet Dextrose (D50w Syringe) 0 gm IV X1 PRN; Protocol PRN Reason: Hypoglycemia Ferrous Sulfate (Ferrous Sulfate) [facility] Last Admin: 11/07/17 09:46 Dose: 325 mg Glucagon () 1 mg IM .X1 PRN PRN Reason: Hypoglycemia Bumetanide 25 mg/ (Miscellaneous Information) 100 mls @ 2 mls/hr CONT INF .Q50H [facility] PRN Reason: 0.5 MG/HR Last Admin: 11/07/17 10:10 Dose: 2 mls/hr Insulin Human Lispro (Humalog Kwikpen (Bkc)) 0 unit SQ TIDAC [facility] PRN Reason: Protocol Last Admin: 11/07/17 07:33 Dose: Not Given Magnesium Hydroxide (Milk Of Magnesia) 30 ml PO DAILY PRN PRN Reason: Constipation Last Admin: 11/06/17 14:29 Dose: 30 ml Magnesium Oxide (Mag-Ox 400) [facility] Last Admin: 11/06/17 21:35 Dose: 400 mg Metoprolol Tartrate (Lopressor (Beta Isa)) 25 mg PO BID [facility] Last Admin: 11/06/17 10:22 Dose: 25 mg Multivitamins/Minerals (Healthy Eyes) 1 tablet PO DAILY [facility] Last Admin: 11/07/17 09:47 Dose: 1 tablet Niacin (Niacin Sr) 250 mg PO QHS [facility] Last Admin: 11/06/17 21:35 Dose: 250 mg Nutritional Formula (Lactose Free) (Glucerna Shake) 120 ml PO TIDCM [facility] Last Admin: 11/07/17 09:45 Dose: 120 ml Ondansetron HCl (Zofran) 4 mg IV Q8H PRN PRN PRN Reason: NAUSEA Oxycodone HCl (Oxyir) 5 - 10 mg PO Q4H PRN PRN PRN Reason: MOD-SEVERE PAIN (4-10/10) Pantoprazole Sodium (Protonix) 20 mg PO DAILY [facility] Last Admin: 11/07/17 09:46 Dose: 20 mg Warfarin Sodium (Coumadin (Pbkc)) 3 mg PO SuMoTu@1700 [facility] PRN Reason: Protocol Last Admin: 11/06/17 17:07 Dose: 3 mg Warfarin Sodium 1 mg/ Warfarin (Sodium 0.5 mg) 1.5 mg PO WeThFrSa@1700 [facility] Medical Necessity - Tobacco Use Smoking Status: Never smoker Assessment/Plan All Active Problems (Last Reviewed 11/05/17 @ 17:34 by Adarsh Gipson DO) CHF (congestive heart failure) (Acute) History of mitral valve repair (Acute) H/O coronary artery bypass surgery (Acute) 1. Acute diastolic CHF exacerbation remains on BUmex drip diuresed 4.65L of urine overnight. In negative balance by 3.5L over 24 hours weight down by 13 pounds since admission. will dc bumex drip 2D echo(11/06/17): Moderately dilated left ventricle with EF of 20-25%. Severe global hypokinesis of left ventricle. Moderately dilated right ventricle with ICD or pacer leads in right ventricle and moderate to mild global right ventricular systolic dysfunction. Left atrium severely enlarged. 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 Moderate severe tricuspid valve insufficiency and right ventricular systolic pressure estimated to be 25 mmHg probably underestimated given the eccentric nature of care. Moderate to severe TR AICD in place per cardiology note, recommend noninvasive stress test to evaluate bypass surgery or repeat catheterization. 2. CKD IV Cr was 2.23 on admission, now down to 2.13. On Bumex drip; will dc bumex drip today. 3. Afib: currently rate and controlled. On metoprolol and amiodarone. Anticoagulated with coumadin. INR today pending Cardiology on board. 4. Metabolic alkalosis likely due to contraction alkalosis bicarb is up to 36 today will stop bumex drip and monitor 5. Type 2 diabetes mellitus Metformin held on account of CHF. On insulin sliding scale. Sugars well controlled. 6. CAD status post CABG: On aspirin and statin. Metoprolol 25 mg twice daily. 7. Hypertension: on metoprolol 8. Renal cancer s/p nephrectomy: stable 9. DVT Prophylaxis: Already anticoagulated with Coumadin. INR pending today CODE STATUS: DNR CCA Disposition: For discharge to [facility] once stable This note was generated with Dragon dictation software. It may contain incorrect words, spelling, and punctuation that were not noted in checking the note before signing. Code Visit Inpatient E&M: 96302 Subs Hosp L3
--- NOTE | 2017-11-07 11:16 | PN_ITS ---
Patient Problems: Active and Suspected Problems (Last Reviewed 11/05/17 @ 17:34 by Adarsh Gipson DO) CHF (congestive heart failure) (Acute) History of mitral valve repair (Acute) Subjective: Patient seen and examined. She complains of pain in her thighs after she had a strep swallowing yesterday. She does not feel short of breath and thinks edema is getting better. She denies any fever or chills, any cough or chest shortness of breath, abdominal pain, any diarrhea vomiting. 12 point review of systems otherwise negative. Patient states she would want to go to a alf as she does not think she can take care of herself at home. Vitals/I&O's: Vital Signs Temp Pulse Resp BP Pulse Ox 97.7 F L 80 16 101/51 L 93 11/07/17 09:29 11/07/17 09:29 11/07/17 09:29 11/07/17 09:29 11/07/17 09:29 Oxygen Delivery Method Room Air Weight: 216 lb 4.375 oz Body Mass Index (BMI) 38.1 Intake and Output for Last 24 Hours 11/05/17 11/06/17 11/07/17 23:59 23:59 23:59 Intake Total 186 / 186 1158.9 / 1158.9 71.3 / 71.3 Output Total 1390 / 1390 4650 / 4650 675 / 675 Balance -1204 / -1204 -3491.1 / -3491.1 -603.7 / -603.7 General: Alert, Oriented x3, Cooperative, No apparent distress HEENT: Atraumatic, PERRLA, EOMI, Normocephalic Oral: Moist Mucosa Neck: Supple, No JVD, Negative Carotid Bruits Lungs: Clear to auscultation, Normal air movement, No rhonchi, No wheeze, No rales Cardiovascular: Regular rate, Regular Rhythm, Normal S1, Normal S2, No murmurs Abdomen: Bowel Sounds Present, Soft, Non Tender, Non-Distended, No Hepato- splenomegaly Extremities: No clubbing, No cyanosis, - - bilateral LE pitting pedal edema up to thighs, it is improving. in GALINA stockings Skin: No rashes, No breakdown Musculoskeletal: No Tenderness to Palpation of Joints or Extremities Lymphatic: No Cervical, Supraclavicular, or Inguinal Adenopathy Neurological: Cranial nerves II-XII grossly intact, Neuro grossly intact, Motor Exam 5/5 strength throughout Psych/Mental Status: Normal Affect, Alert and oriented to time, place, person, mood and affect Laboratory Results 11/06/17 12:27: POC Glucose 118 H 11/06/17 16:58: POC Glucose 112 H 11/06/17 21:34: POC Glucose 144 H 11/07/17 07:02: POC Glucose 101 11/07/17 07:50: WBC 4.5, RBC 4.18 L, Hgb 9.4 L, Hct 33.5 L, MCV 80.1 L, MCH 22.5 L, MCHC 28.1 L, RDW 22.2 H, RDW Differential 63.9 H, Plt Count 145 L, MPV 9.1, Immature Gran % (Auto) 0.200, Neut % (Auto) 69.6, Lymph % (Auto) 17.3 L, [place] % (Auto) 11.1 H, Eos % (Auto) 1.6, Baso % (Auto) 0.2, Absolute Neuts (auto ) 3.1, Absolute Lymphs (auto) 0.78 L, Total Counted Not Reportable, Differential Comment COMMENT 11/07/17 07:50: Sodium 142, Potassium 3.7, Chloride 103, Carbon Dioxide 36.0 H, Anion Gap 3 L, BUN 32 H, Creatinine 2.27 H, Estim Creat Clear Calc 17.19, Est GFR (MDRD) Af Amer 27 L, Est GFR (MDRD) Non-Af 22 L, BUN/Creatinine Ratio 14.1, Glucose 92, Calcium 8.3 L Current Medications Acetaminophen (Tylenol) 650 mg PO Q6H PRN PRN PRN Reason: Mild Pain (1-3)/Temp > 100.7 F Last Admin: 11/06/17 23:34 Dose: 650 mg Alprazolam (Xanax) 0.5 mg PO QHS [facility] Last Admin: 11/06/17 21:36 Dose: 0.5 mg Amiodarone HCl (Cordarone) 200 mg PO DAILY [facility] Last Admin: 11/07/17 09:46 Dose: 200 mg Artificial Tears (Tears Naturale, Artificial Tears) 1 drop EACH EYE TID [facility] Last Admin: 11/07/17 05:11 Dose: 1 drop Aspirin (Ecotrin) 81 mg PO QHS [facility] Last Admin: 11/06/17 21:35 Dose: 81 mg Calcium/Vitamin D (Os-Inder 500mg + D) [facility] Last Admin: 11/07/17 09:46 Dose: 1 tablet Dextrose (D50w Syringe) 0 gm IV X1 PRN; Protocol PRN Reason: Hypoglycemia Ferrous Sulfate (Ferrous Sulfate) [facility] Last Admin: 11/07/17 09:46 Dose: 325 mg Glucagon () 1 mg IM .X1 PRN PRN Reason: Hypoglycemia Bumetanide 25 mg/ (Miscellaneous Information) 100 mls @ 2 mls/hr CONT INF .Q50H [facility] PRN Reason: 0.5 MG/HR Last Admin: 11/07/17 10:10 Dose: 2 mls/hr Insulin Human Lispro (Humalog Kwikpen (Bkc)) 0 unit SQ TIDAC [facility] PRN Reason: Protocol Last Admin: 11/07/17 07:33 Dose: Not Given Magnesium Hydroxide (Milk Of Magnesia) 30 ml PO DAILY PRN PRN Reason: Constipation Last Admin: 11/06/17 14:29 Dose: 30 ml [facility] (Mag-Ox 400) [facility] Last Admin: 11/06/17 21:35 Dose: 400 mg Metoprolol Tartrate (Lopressor (Beta Isa)) 25 mg PO BID [facility] Last Admin: 11/06/17 10:22 Dose: 25 mg Multivitamins/Minerals (Healthy Eyes) 1 tablet PO DAILY [facility] Last Admin: 11/07/17 09:47 Dose: 1 tablet Niacin (Niacin Sr) 250 mg PO QHS [facility] Last Admin: 11/06/17 21:35 Dose: 250 mg Nutritional Formula (Lactose Free) (Glucerna Shake) 120 ml PO TIDCM [facility] Last Admin: 11/07/17 09:45 Dose: 120 ml Ondansetron HCl (Zofran) 4 mg IV Q8H PRN PRN PRN Reason: NAUSEA Oxycodone HCl (Oxyir) 5 - 10 mg PO Q4H PRN PRN PRN Reason: MOD-SEVERE PAIN (4-10/10) Pantoprazole Sodium (Protonix) 20 mg PO DAILY [facility] Last Admin: 11/07/17 09:46 Dose: 20 mg Warfarin Sodium (Coumadin (Pbkc)) 3 mg PO SuMoTu@1700 [facility] PRN Reason: Protocol Last Admin: 11/06/17 17:07 Dose: 3 mg Warfarin Sodium 1 mg/ Warfarin (Sodium 0.5 mg) 1.5 mg PO WeThFrSa@1700 [facility] Medical Necessity - Tobacco Use Smoking Status: Never smoker Assessment/Plan All Active Problems (Last Reviewed 11/05/17 @ 17:34 by Adarsh Gipson DO) CHF (congestive heart failure) (Acute) History of mitral valve repair (Acute) H/O coronary artery bypass surgery (Acute) 1. Acute diastolic CHF exacerbation * remains on BUmex drip * diuresed 4.65L of urine overnight. In negative balance by 3.5L over 24 hours * weight down by 13 pounds since admission. * will dc bumex drip * 2D echo(11/06/17): Moderately dilated left ventricle with EF of 20-25%. Severe global hypokinesis of left ventricle. Moderately dilated right ventricle with ICD or pacer leads in right ventricle and moderate to mild global right ventricular systolic dysfunction. Left atrium severely enlarged. 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 Moderate severe tricuspid valve insufficiency and right ventricular systolic pressure estimated to be 25 mmHg probably underestimated given the eccentric nature of care. Moderate to severe TR * AICD in place * per cardiology note, recommend noninvasive stress test to evaluate bypass surgery or repeat catheterization. * * 2. CKD IV * Cr was 2.23 on admission, now down to 2.13. * On Bumex drip; will dc bumex drip today. * 3. Afib: * currently rate and controlled. * On metoprolol and amiodarone. * Anticoagulated with coumadin. INR today pending * Cardiology on board. * 4. Metabolic alkalosis likely due to contraction alkalosis * bicarb is up to 36 today * will stop bumex drip and monitor * 5. Type 2 diabetes mellitus * Metformin held on account of CHF. On insulin sliding scale. Sugars well controlled. * 6. CAD status post CABG: On aspirin and statin. Metoprolol 25 mg twice daily. 7. Hypertension: on metoprolol 8. Renal cancer s/p nephrectomy: stable 9. DVT Prophylaxis: Already anticoagulated with Coumadin. INR pending today CODE STATUS: DNR [facility] Disposition: For discharge to [facility] once stable This note was generated with [employer] dictation software. It may contain incorrect words, spelling, and punctuation that were not noted in checking the note before signing. Code Visit Inpatient E&M: 26226 Subs Hosp L3
--- NOTE | 2017-11-07 11:21 | CASEMGMT ---
SW made a referral to [facility] this am. SW let patient know about conversation with her daughter and referral to [facility]. She was in agreement with this plan. SW did get a return call from [facility] and they can accept patient. Plan: [facility] when ready [facility] ZAPATA MSW
[2017-11-07 11:32] LABS: International Normalized Ratio 2.4; Prothrombin Time (Protime)PT. 25.9 SECONDS (11.7-14.9)
[2017-11-07 11:35] LABS: Bedside Glucose 147 mg/dL (70-110)
--- NOTE | 2017-11-07 14:19 | PCM.PN.CARD ---
Subjectve: Patient feels much better today, diuresing nicely, no further shortness of breath, orthopnea or PND. Lower extremity edema is still present but much improved. Abdominal fullness also much improved but not completely resolved. Patient is approximately 7 L net negative since admission. Telemetry showed normal sinus rhythm with a 4 beat run of ventricular tachycardia. Bicarb is 32 and creatinine is 2.27. Objective: Vital Signs Temp Pulse Resp BP Pulse Ox 97.7 F L 78 16 101/51 L 93 11/07/17 09:29 11/07/17 10:59 11/07/17 09:29 11/07/17 09:29 11/07/17 09:29 Oxygen Delivery Method Room Air Weight: 216 lb 4.375 oz Body Mass Index (BMI) 38.1 Intake and Output for Last 24 Hours 11/05/17 11/06/17 11/07/17 23:59 23:59 23:59 Intake Total 186 / 186 1158.9 / 1158.9 441.3 / 441.3 Output Total 1390 / 1390 4650 / 4650 2300 / 2300 Balance -1204 / -1204 -3491.1 / -3491.1 -1858.7 / -1858.7 General: Awake, Alert, Oriented x 3 HEENT: PERRL, EOMI, Sclera Non Icteric Neck: Supple, Good ROM, No Lymph Node Enlargement Lungs: Clear to auscultation Cardiovascular: Regular Rhythm, Normal S1, Normal S2, No Murmurs, No Rubs, No Gallops Vascular: No Carotid Bruits, Normal Femoral Pulses, Normal Radial Pulses, Normal Dorsalis Pedal Pulse, Normal Posterior Tibial Pulses Abdomen: Bowel Sounds Present, Soft, Non Tender, No HSM, No Organomegaly Extremities: No Cyanosis, No Clubbing, No edema Neurological: No Focal Motor or Sensory Deficit 11/07/17 07:50: WBC 4.5, RBC 4.18 L, Hgb 9.4 L, Hct 33.5 L, MCV 80.1 L, MCH 22.5 L, MCHC 28.1 L, RDW 22.2 H, RDW Differential 63.9 H, Plt Count 145 L, MPV 9.1, Immature Gran % (Auto) 0.200, Neut % (Auto) 69.6, Lymph % (Auto) 17.3 L, [place] % (Auto) 11.1 H, Eos % (Auto) 1.6, Baso % (Auto) 0.2, Absolute Neuts (auto) 3.1, Total Counted Not Reportable 11/07/17 07:50: Sodium 142, Potassium 3.7, Chloride 103, Carbon Dioxide 36.0 H, Anion Gap 3 L, BUN 32 H, Creatinine 2.27 H, Est GFR (MDRD) Af Amer 27 L, Est GFR (MDRD) Non-Af 22 L, BUN/Creatinine Ratio 14.1, Glucose 92, Calcium 8.3 L 11/07/17 07:50: PT 25.9 H, INR 2.4 Rhythm: EKG: ECHO: Stress Test: Cardiac Cath: PCI: CT Surgery: Holter monitor: EPS: PPM: CXR: Chest CT Scan: Medical Necessity - Tobacco Use Smoking Status: Never smoker Assessment/Plan 1. Ischemic cardiomyopathy: The patient has had progressively worsening fluid retention over the last several weeks to months. She has never really felt better after her bypass surgery in December 2016. Patient has had an excellent diuresis in the past 2-3 days with a net -14 L. Recommend discontinuation of IV Bumex drip and switching her to Bumex 1 mg p.o. twice daily. Would also recommend metolazone 2.5 mg every Sunday and . Given her chronic renal insufficiency, she may require a higher level of diuretic therapy. Would recommend holding her metoprolol at this time as well given her acute on chronic LV dysfunction. Repeat echocardiogram yesterday demonstrated moderate mitral stenosis from her bioprosthetic mitral valve, moderate to severe eccentric tricuspid regurgitation, severe LV dysfunction with an EF around 25%, RVSP of approximately 25 mmHg which may be underestimated given her LV dysfunction and eccentric nature of her tricuspid regurgitation. Once the patient has achieved her dry weight, we may consider either a noninvasive stress test to evaluate her bypass surgery or repeat catheterization. 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 At this point, however, we will hold off on stress testing at this time. Recommend continuing amiodarone to preserve normal sinus rhythm and protect her atrial kick. In addition she would need to have her Coumadin held given her history of pulmonary hypertension and history of atrial fibrillation. Would also recommend continuing amiodarone therapy to avoid ventricular or atrial arrhythmias. I believe her pulmonary pressures are higher than advertised on her echocardiogram, particularly in light of her extreme biventricular failure. Once the patient has reached her dry weight, I would prefer that we medically manage her, and [facility] services. 2. Hyperlipidemia: Unfortunately patient is unable to tolerate statins. Continue niacin. 3. Thank you very much for the opportunity to participate in the cardiac care of your patient. Discussed with Dr. Lara. Code Visit Inpatient E&M: 12198 Subs Hosp L2
--- NOTE | 2017-11-07 14:24 | PN.CARD_ITS ---
Subjectve: Patient feels much better today, diuresing nicely, no further shortness of breath, orthopnea or PND. Lower extremity edema is still present but much improved. Abdominal fullness also much improved but not completely resolved. Patient is approximately 7 L net negative since admission. Telemetry showed normal sinus rhythm with a 4 beat run of ventricular tachycardia. Bicarb is 32 and creatinine is 2.27. Objective: Vital Signs Temp Pulse Resp BP Pulse Ox 97.7 F L 78 16 101/51 L 93 11/07/17 09:29 11/07/17 10:59 11/07/17 09:29 11/07/17 09:29 11/07/17 09:29 Oxygen Delivery Method Room Air Weight: 216 lb 4.375 oz Body Mass Index (BMI) 38.1 Intake and Output for Last 24 Hours 11/05/17 11/06/17 11/07/17 23:59 23:59 23:59 Intake Total 186 / 186 1158.9 / 1158.9 441.3 / 441.3 Output Total 1390 / 1390 4650 / 4650 2300 / 2300 Balance -1204 / -1204 -3491.1 / -3491.1 -1858.7 / -1858.7 General: Awake, Alert, Oriented x 3 HEENT: PERRL, EOMI, Sclera Non Icteric Neck: Supple, Good ROM, No Lymph Node Enlargement Lungs: Clear to auscultation Cardiovascular: Regular Rhythm, Normal S1, Normal S2, No Murmurs, No Rubs, No Gallops Vascular: No Carotid Bruits, Normal Femoral Pulses, Normal Radial Pulses, Normal Dorsalis Pedal Pulse, Normal Posterior Tibial Pulses Abdomen: Bowel Sounds Present, Soft, Non Tender, No HSM, No Organomegaly Extremities: No Cyanosis, No Clubbing, No edema Neurological: No Focal Motor or Sensory Deficit 11/07/17 07:50: WBC 4.5, RBC 4.18 L, Hgb 9.4 L, Hct 33.5 L, MCV 80.1 L, MCH 22.5 L, MCHC 28.1 L, RDW 22.2 H, RDW Differential 63.9 H, Plt Count 145 L, MPV 9.1, Immature Gran % (Auto) 0.200, Neut % (Auto) 69.6, Lymph % (Auto) 17.3 L, [place] % (Auto) 11.1 H, Eos % (Auto) 1.6, Baso % (Auto) 0.2, Absolute Neuts (auto ) 3.1, Total Counted Not Reportable 11/07/17 07:50: Sodium 142, Potassium 3.7, Chloride 103, Carbon Dioxide 36.0 H, Anion Gap 3 L, BUN 32 H, Creatinine 2.27 H, Est GFR (MDRD) Af Amer 27 L, Est GFR (MDRD) Non-Af 22 L, BUN/Creatinine Ratio 14.1, Glucose 92, Calcium 8.3 L 11/07/17 07:50: PT 25.9 H, INR 2.4 Rhythm: EKG: ECHO: Stress Test: Cardiac Cath: PCI: CT Surgery: Holter monitor: EPS: PPM: CXR: Chest CT Scan: Medical Necessity - Tobacco Use Smoking Status: Never smoker Assessment/Plan 1. Ischemic cardiomyopathy: The patient has had progressively worsening fluid retention over the last several weeks to months. She has never really felt better after her bypass surgery in December 2016. Patient has had an excellent diuresis in the past 2-3 days with a net -14 L. Recommend discontinuation of IV Bumex drip and switching her to Bumex 1 mg p.o. twice daily. Would also recommend metolazone 2.5 mg every Sunday and . Given her chronic renal insufficiency, she may require a higher level of diuretic therapy. Would recommend holding her metoprolol at this time as well given her acute on chronic LV dysfunction. 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 Once the patient has achieved her dry weight, we may consider either a noninvasive stress test to evaluate her bypass surgery or repeat catheterization. 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 At this point, however, we will hold off on stress testing at this time. Recommend continuing amiodarone to preserve normal sinus rhythm and protect her atrial kick. In addition she would need to have her Coumadin held given her history of pulmonary hypertension and history of atrial fibrillation. Would also recommend continuing amiodarone therapy to avoid ventricular or atrial arrhythmias. I believe her pulmonary pressures are higher than advertised on her echocardiogram, particularly in light of her extreme biventricular failure. Once the patient has reached her dry weight, I would prefer that we medically manage her, and transfer to the skilled nursing for further rehabilitative services. 2. Hyperlipidemia: Unfortunately patient is unable to tolerate statins. Continue niacin. 3. Thank you very much for the opportunity to participate in the cardiac care of your patient. Discussed with Dr. Lara. Code Visit Inpatient E&M: 54045 Subs Hosp L2
[2017-11-07 16:26] LABS: Bedside Glucose 101 mg/dL (70-110)
[2017-11-07] MEDS: Warfarin 1 MG, Warfarin 0.5 MG 1.5 MG PO (17:06)
[2017-11-07] MEDS: Aspirin E.C. 81 MG Tablet PO (21:37)
[2017-11-07] MEDS: Magnesium Oxide 400 MG Tablet PO (21:38)
[2017-11-07] MEDS: ALPRAZolam 0.5 MG Tablet PO (21:38)
[2017-11-07 22:36] LABS: Bedside Glucose 149 mg/dL (70-110)
[2017-11-08] VITALS (8 sets, daily range): BP systolic 91–102; BP diastolic 36–62; PULSE 76–88; RESP 16–20; TEMP 36.3–36.7; O2SAT 93–96
[2017-11-08 06:24] LABS: Anion Gap 6 (5-15); BUN 29 mg/dL (7-18); BUN/Creat Ratio 13.2 RATIO (10-20); Calcium,Total 8.6 mg/dL (8.5-10.1); Chloride 102 mmol/L (98-107); EST Glomerular Filtration Rate 23 mL/min (>60); Est Glom Filt Rate - Afr Amer 28 mL/min (>60); Estimated Creatinine Clearance 17.74 ml/min; Glucose 98 mg/dL (74-106); Potassium 3.9 mmol/L (3.5-5.1); Sodium Level 142 mmol/L (136-145)
[2017-11-08 06:48] LABS: Magnesium 2.7 mg/dL (1.6-2.6)
[2017-11-08 07:01] LABS: Absolute Lymphocyte Count 0.81 X10^3/ul (0.83-4.51); Absolute Neutrophil Count 4.2 X10^3/uL (2.0-7.7); Basophil# 0.02 X10^3/uL; Basophil% 0.3 % (0-1); Eosinophil# 0.09 X10^3/uL; Eosinophils% 1.5 % (0-5); Hematocrit 35.6 % (37-47); Lymphocyte # 0.81 X10^3/ul (4.0); Lymphocyte % 13.9 % (19-41); Mean Corp Hgb Conc 28.1 g/gl (32-36); Mean Corpuscular Hgb 22.5 pg (27.0-32.0); Mean Corpuscular Volume 80.2 fL (81-99); Mean Platelet Vol. 9.2 fl (6.2-12.0); Monocyte# 0.66 X10^3/uL; Monocyte% 11.3 % (0-10); Neutrophil # 4.24 X10^3/uL (2.7-7.7); Neutrophil % 72.8 % (47-70); Platelet Count 146 K/mm3 (150-450); RBC Distribution Width SD 63.6 fl (35.1-43.9); Red Blood Count 4.44 M/mm3 (4.2-5.4); White Blood Count 5.8 K/mm3 (4.4-11.0)
[2017-11-08 07:04] LABS: Differential Indicated SCAN CRITERIA MET; POSITIVE COUNT NO; POSITIVE DIFFERENTIAL NO; POSITIVE MORPHOLOGY YES
[2017-11-08 07:31] LABS: Anisocytosis 1+; Differential Comment SCAN
[2017-11-08 07:32] LABS: Hypochromasia 1+; Microcytosis 1+; Polychromasia 1+
[2017-11-08 07:35] LABS: Bedside Glucose 101 mg/dL (70-110)
[2017-11-08] MEDS: Glucerna Shake 120 ML LIQUID PO ×2 (08:00→13:07)
[2017-11-08] MEDS: Metolazone 2.5 MG Tablet PO (09:36)
[2017-11-08] MEDS: Bumetanide 2 MG Tablet PO (09:36)
[2017-11-08] MEDS: Metoprolol Tartrate 25 MG Tablet PO (09:36)
[2017-11-08] MEDS: Calcium Carb/Vitamin D 1 TABLET Tablet PO (09:36)
[2017-11-08] MEDS: Ferrous Sulfate 325 MG Tablet PO (09:36)
[2017-11-08] MEDS: Amiodarone 200 MG Tablet PO (09:36)
[2017-11-08] MEDS: Pantoprazole Sodium 20 MG Tablet PO (09:36)
--- NOTE | 2017-11-08 11:10 | PCM.TXEXTCAR ---
- Diet 11/05/17 17:29 Diet: Cardiac/Low Cholesterol Food consistency:: Regular Liquid Consistency:: Regular/Thin - Routine Orders/Code Status Enema Type: Fleetz Enema Frequency: Daily PRN Suppository Type: Dulcolax 10mg Suppository Frequency: Daily PRN O2 Frequency: PRN Keep PO Greater than or Equal to (%): 92 Routine Lab Work: INR Code Status: DNRCC-A - Therapies Weight Bearing: Weight bearing as tolerated Physical Therapy: Eval and Treat Occupational Therapy: Eval and Treat - Allergies/Procedures Done in Hospital Allergies/Adverse Reactions: Allergies erythromycin base Adverse Reaction (Verified 11/05/17 13:40) Vomiting meperidine [From Demerol] Adverse Reaction (Verified 11/05/17 13:40) Vomiting Procedures: None - Type of Care/Length of Stay Estimated LOS: More Than 30 Days Type of Care Needed: Skilled Rehab Potential: Good Prognosis: Good - Additional Orders/Day of Discharge H&P will serve as current which was dated: 11/05/17 Day of Discharge: 11/08/17 - Dietary and Speech Recommendations Dietitian Recommendations/Changes: Suggest diet change to 1800 shena, carbohydrate-controlled, cardiac/low sodium, 60 gm protein with 1500 ml FR. Continue 120 ml glucerna shake TID on medpass if PO compromised at meals. - Follow Up Care Primary Care Physician: Gilberto Rios MD [Primary Care Provider] - Please follow up with your Primary Care Physician in: one week Please Follow Up With: Salvador Tran MD When: 1-2 weeks Code Visit Inpatient E&M: 38719 Disch Hosp
--- NOTE | 2017-11-08 11:14 | DS.PCM_ITS ---
Discharge Date and Diagnosis - Problem List Patient Problems: Active and Suspected Problems (Last Reviewed 11/05/17 @ 17:34 by Adarsh Gipson DO) CHF (congestive heart failure) (Acute) History of mitral valve repair (Acute) Date of Admission: 11/05/17 Date of Discharge: 11/08/17 - Primary Discharge Diagnosis Active and Suspected Problems (Last Reviewed 11/05/17 @ 17:34 by Adarsh Gipson DO) CHF (congestive heart failure) (Acute) History of mitral valve repair (Acute) - Secondary Discharge Diagnosis Chronic Problems (Last Reviewed 11/05/17 @ 17:34 by Adarsh Gipson DO) Ventricular tachyarrhythmia (Chronic) Presence of implantable cardioverter-defibrillator (ICD) (Chronic ~05/10/09) [place] 05/10/2009 Secondary pulmonary arterial hypertension (Chronic) Ischemic cardiomyopathy (Chronic) Atherosclerosis of coronary artery of [place] heart without angina pectoris ( Chronic) S/P bypass surgery in [address] 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 marginal branch shelter (current) use of 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 (Chronic) Acute on chronic systolic CHF (congestive heart failure) (Chronic) Chronic kidney disease, stage 3 (Chronic) Type 2 diabetes mellitus (Chronic) Status post right nephrectomy (Chronic) Status post implantation of automatic cardioverter/defibrillator (AICD) (Chronic ) History of breast cancer (Chronic) History of renal cell carcinoma (Chronic) Hypertension (Chronic) Hospital Course and Treatment cardiology-Dr Tran Operations: None Procedures: 2-D Echocardiogram Summary of Care Provided: The patient is a 82 year old F with a history of coronary artery disease status post CABG, Afib on coumadin, also status post mitral valve repair in 2017, dilated cardiomyopathy, hypertension, hyperlipidemia and status post ICD placement. She also has a history of CKD and renal carcinoma status post nephrectomy. She was admitted via the ED with complaint of bilateral lower extremity swelling which was getting worse. She also had worsening shortness of breath. Chest x-ray done was unremarkable. BNP was 694. Patient was admitted and managed for acute systolic CHF exacerbation. Her Lasix was DC'd and she was started on Bumex drip on account of her CKD. Echo done during this admission showed moderate dilated left ventricle with EF of 20-25% and severe hypokinesis of the left ventricle; also had moderately dilated right ventricle with valve stenosis with bioprosthetic mitral valve. RVSP estimated to be about 25 mmHg. Moderate to severe TR and AICD in place. Patient was diuresed successfully on the Bumex drip and was negative balance of about 6.3 L at time of discharge. Her weight went down by about 15 pounds during this admission. Cardiology deferred on further investigation during this admission as patient improved with diuresis. Patient remained stable, and she was discharged to a correction on p.o. bumetanide 1 mg daily and she was also started on p.o. metolazone to take 2.5 mg every Sunday and . She is to follow-up with her primary care doctor and field checker in 1 week. Patient seen and examined prior to discharge. She had no complaints and felt well. Lower extremity swelling had come down with application of Yordy wraps. She denied any fever or chills, and cough or chest pain, any shortness of breath , any abdominal pain, diarrhea vomiting. Review of systems is otherwise negative. Medications reviewed and reconciled. o/e: Vital Signs Height 5 ft 5 in Weight: 214 lb 11.684 oz Weight in Pounds 214.7 lbs Pulse Ox 95 Temperature 97.4 F Pulse Rate 78 Respiratory Rate 16 Blood Pressure 101/36 Blood Pressure Position Semi-Fowlers General: Alert, Oriented x3, Cooperative, No apparent distress HEENT: Atraumatic, PERRLA, EOMI, Normocephalic Oral: Moist Mucosa Neck: Supple, No JVD, Negative Carotid Bruits Lungs: Clear to auscultation, Normal air movement, No rhonchi, No wheeze, No rales Cardiovascular: Regular rate, Regular Rhythm, Normal S1, Normal S2, No murmurs Abdomen: Bowel Sounds Present, Soft, Non Tender, Non-Distended, No Hepato- splenomegaly Extremities: No clubbing, No cyanosis, - - bilateral LE pitting pedal edema up to thighs, it is improving. LEs in YORDY wraps Skin: No rashes, No breakdown Musculoskeletal: No Tenderness to Palpation of Joints or Extremities Lymphatic: No Cervical, Supraclavicular, or Inguinal Adenopathy Neurological: Cranial nerves II-XII grossly intact, Neuro grossly intact, Motor Exam 5/5 strength throughout Psych/Mental Status: Normal Affect, Alert and oriented to time, place, person, mood and affect [] Plan as stated above. Discharge Diet: 2000 mg Sodium Diet Call your doctor if you observe: Shortness of breath, Dizziness, Swelling in the ankles, Chest pain Home Medications: Medications to take at Discharge Niacin 250 mg PO DAILY 12/23/16 Omeprazole [Prilosec] 20 mg PO DAILY 12/23/16 alprazolam 0.5 mg tablet 0.5 mg PO QHS tab 03/19/17 metoprolol tartrate 25 mg tablet 25 mg PO BID 03/19/17 warfarin 3 mg tablet 3 mg PO SUMOTU 03/19/17 Metformin HCl [Glucophage] 500 mg PO DAILY 03/31/17 Warfarin [Coumadin] 1.5 mg PO WETHFRSA 03/31/17 amiodarone 200 mg tablet 200 mg PO DAILY 90 Days #90 tab 04/19/17 Aspirin E.C. [Ecotrin] 81 mg PO DAILY 11/05/17 C,E,Zinc,Copper 11/Cducb3j/Lut [Ocuvite Adult 50 Plus Softgel] 1 tablet PO DAILY 11/05/17 Calcium Carbonate/Vitamin D3 [Calcium 600-Vit D3 200 Tablet] 1 tab PO DAILY 09/17 Carboxymethylcellulose Sodium [Refresh Tears] 1 drop EACH EYE TID 11/05/17 Ferrous Sulfate [Iron] 325 mg PO DAILY 11/05/17 Magnesium Oxide 400 mg PO DAILY 11/05/17 Naproxen 500 mg PO BID PRN PRN 11/05/17 Bumetanide 1 mg PO BID #60 tab 11/08/17 Metolazone [Zaroxolyn] 2.5 mg PO MoTh@1000 #30 tab 11/08/17 Following Prescrptions Were Given to Patient: Metolazone [Zaroxolyn] 2.5 mg PO MoTh@1000 #30 tab Bumetanide 1 mg PO BID #60 tab Primary Care Physician: Gilberto Rios MD [Primary Care Provider] - Please follow up with your Primary Care Physician in: one week Please Follow Up With: Salvador Tran MD When: 1-2 weeks Disposition: Jail facility Minutes spent on discharge:: 40 Patient Condition:: Stable Medical Necessity - Tobacco Use Smoking Status: Never smoker Meaningful Use Info Meaningful Use Diagnoses (Choose all that apply): CHF - CHF YORDY/ARB ordered at discharge?: No Reason YORDY/ARB not ordered?: Worsening renal disease Documented LVEF (%): 25 Code Visit Inpatient E&M: 72005 Disch Hosp
--- NOTE | 2017-11-08 11:14 | TREXTCAR_ITS ---
- Diet 11/05/17 17:29 Diet: Cardiac/Low Cholesterol Food consistency:: Regular Liquid Consistency:: Regular/Thin - Routine Orders/Code Status Enema Type: Fleetz Enema Frequency: Daily PRN Suppository Type: Dulcolax 10mg Suppository Frequency: Daily PRN O2 Frequency: PRN Keep PO Greater than or Equal to (%): 92 Routine Lab Work: INR Code Status: DNRCC-A - Therapies Weight Bearing: Weight bearing as tolerated Physical Therapy: Eval and Treat Occupational Therapy: Eval and Treat - Allergies/Procedures Done in Hospital Allergies/Adverse Reactions: Allergies erythromycin base Adverse Reaction (Verified 11/05/17 13:40) Vomiting meperidine [From Demerol] Adverse Reaction (Verified 11/05/17 13:40) Vomiting Procedures: None - Type of Care/Length of Stay Estimated LOS: More Than 30 Days Type of Care Needed: Skilled Rehab Potential: Good Prognosis: Good - Additional Orders/Day of Discharge H&P will serve as current which was dated: 11/05/17 Day of Discharge: 11/08/17 - Dietary and Speech Recommendations Dietitian Recommendations/Changes: Suggest diet change to 1800 shena, carbohydrate -controlled, cardiac/low sodium, 60 gm protein with 1500 ml FR. Continue 120 ml glucerna shake TID on medpass if PO compromised at meals. - Follow Up Care Primary Care Physician: Gilberto Rios MD [Primary Care Provider] - Please follow up with your Primary Care Physician in: one week Please Follow Up With: Salvador Tran MD When: 1-2 weeks Code Visit Inpatient E&M: 89938 Disch Hosp
[2017-11-08 11:35] LABS: Bedside Glucose 153 mg/dL (70-110)
--- NOTE | 2017-11-08 11:59 | NURSING ---
Called report to Fernanda SERRAN[facility]
--- NOTE | 2017-11-08 12:01 | CASEMGMT ---
Pt is ready for discharge to [facility] today. LORENA faxed all discharge paperwork including hospital exemption completed in the [employer] system to [facility]. LORENA called daughter Joann Kerr, let her know pt can go to [facility] today, let daughter know pt will get a bill for transportation to [facility]. Daughter states understanding. SW called [facility], they can transport pt at 2pm via ambulette. LORENA let pt, RN, daughter, and Misti at [facility] know time. No further needs anticipated at this time. ANGELLA Ford, WELDING PANTOGRAPH OPERATOR
--- NOTE | 2017-11-08 15:47 | PN.CARD_ITS ---
Subjectve: Patient doing very well this morning. Anxious to go back to the intermediate. Lower extremity edema almost completely resolved. Patient is now able to lay flat. Abdominal distention has resolved. Patient was switched to Bumex and metolazone yesterday and is doing very well. Objective: Vital Signs Temp Pulse Resp BP Pulse Ox 98.0 F 76 16 102/62 96 11/08/17 15:01 11/08/17 15:01 11/08/17 15:01 11/08/17 15:01 11/08/17 15:01 Oxygen Delivery Method Room Air Weight: 214 lb 11.684 oz Body Mass Index (BMI) 38.1 Intake and Output for Last 24 Hours 11/06/17 11/07/17 11/08/17 23:59 23:59 23:59 Intake Total 1158.9 / 1158.9 1021.3 / 1021.3 480 / 480 Output Total 4650 / 4650 3650 / 3650 420 / 420 Balance -3491.1 / -3491.1 -2628.7 / -2628.7 60 / 60 General: Awake, Alert, Oriented x 3 HEENT: PERRL, EOMI, Sclera Non Icteric Neck: Supple, Good ROM, No Lymph Node Enlargement Lungs: Clear to auscultation Cardiovascular: Regular Rhythm, Normal S1, Normal S2, No Murmurs, No Rubs, No Gallops Vascular: No Carotid Bruits, Normal Femoral Pulses, Normal Radial Pulses, Normal Dorsalis Pedal Pulse, Normal Posterior Tibial Pulses Abdomen: Bowel Sounds Present, Soft, Non Tender, No HSM, No Organomegaly Extremities: No Cyanosis, No Clubbing, No edema Neurological: No Focal Motor or Sensory Deficit 11/08/17 05:20: WBC 5.8, RBC 4.44, Hgb 10.0 L, Hct 35.6 L, MCV 80.2 L, MCH 22.5 L, MCHC 28.1 L, RDW 22.0 H, RDW Differential 63.6 H, Plt Count 146 L, MPV 9.2, Immature Gran % (Auto) 0.200, Neut % (Auto) 72.8 H, Lymph % (Auto) 13.9 L, Harvey % (Auto) 11.3 H, Eos % (Auto) 1.5, Baso % (Auto) 0.3, Absolute Neuts (auto) 4.2 , Total Counted Not Reportable 11/08/17 05:20: Sodium 142, Potassium 3.9, Chloride 102, Carbon Dioxide 34.0 H, Anion Gap 6, BUN 29 H, Creatinine 2.20 H, Est GFR (MDRD) Af Amer 28 L, Est GFR ( MDRD) Non-Af 23 L, BUN/Creatinine Ratio 13.2, Glucose 98, Calcium 8.6 11/08/17 05:20: Magnesium 2.7 H Rhythm: EKG: ECHO: Stress Test: Cardiac Cath: PCI: CT Surgery: Holter monitor: EPS: PPM: CXR: Chest CT Scan: Medical Necessity - Tobacco Use Smoking Status: Never smoker Assessment/Plan 1. Ischemic cardiomyopathy: The patient has had progressively worsening fluid retention over the last several weeks to months. She has never really felt better after her bypass surgery in December 2016. Patient has had an excellent diuresis in the past 2-3 days with a net -14 L. Recommend discontinuation of IV Bumex drip and switching her to Bumex 2 mg p.o. twice daily. Would also recommend metolazone 2.5 mg every Sunday and . Given her chronic renal insufficiency, she may require a higher level of diuretic therapy. Would recommend holding her metoprolol at this time as well given her acute on chronic LV dysfunction. 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 Once the patient has achieved her dry weight, we may consider either a noninvasive stress test to evaluate her bypass surgery or repeat catheterization. 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 At this point, however, we will hold off on stress testing at this time. Recommend continuing amiodarone to preserve normal sinus rhythm and protect her atrial kick. In addition she would need to have her Coumadin continued given her history of pulmonary hypertension and history of atrial fibrillation. Would also recommend continuing amiodarone therapy to avoid ventricular or atrial arrhythmias. I believe her pulmonary pressures are higher than advertised on her echocardiogram, particularly in light of her extreme biventricular failure. I believe it is reasonable to transfer the patient to a intermediate today with follow-up in our office in 2 weeks time for a blood pressure check and a BMP. 2. Hyperlipidemia: Unfortunately patient is unable to tolerate statins. Continue niacin. 3. Thank you very much for the opportunity to participate in the cardiac care of your patient. Discussed with Dr. Lara. Patient may be discharged to rehabilitation center. Code Visit Inpatient E&M: 40543 Subs Hosp L2
== END 2017-11-08 16:10 | disposition skilled nursing facility (03) | DRG 291 ==
LOC: ED 16:22 → PCU 17:48
PROVIDERS: Hospitalist; Emergency Provider Emergency Medicine; Family Provider Family Medicine; PCP Family Medicine; Visit Provider Student in an Organized Health Care Education/Training Program
DX: I13.0 Hypertensive heart and chronic kidney disease with heart failure and stage 1 through stage 4 chronic kidney disease, or unspecified chronic kidney disease (principal); I50.23 Acute on chronic systolic (congestive) heart failure; I27.21 Secondary pulmonary arterial hypertension; I25.5 Ischemic cardiomyopathy; I25.10 Atherosclerotic heart disease of native coronary artery without angina pectoris; E11.22 Type 2 diabetes mellitus with diabetic chronic kidney disease; N18.3 Chronic kidney disease, stage 3 (moderate); Z85.528 Personal history of other malignant neoplasm of kidney; Z95.1 Presence of aortocoronary bypass graft; I48.91 Unspecified atrial fibrillation; Z95.810 Presence of automatic (implantable) cardiac defibrillator; Z90.5 Acquired absence of kidney; Z79.01 Long term (current) use of 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; E78.5 Hyperlipidemia, unspecified; Z95.3 Presence of xenogenic heart valve; Z79.84 Long term (current) use of oral hypoglycemic drugs; Z85.3 Personal history of malignant neoplasm of breast; Z66 Do not resuscitate; Z79.899 Other long term (current) drug therapy; I08.1 Rheumatic disorders of both mitral and tricuspid valves
CPT/HCPCS: 36415; 51702; 71045; 80048; 82962; 83735; 83880; 84484; 85025; 85610; 93005; 93306; 97110; 97116; 97162; 97165; 97530; 97802; 99284

== ENCOUNTER 2017-11-22 14:47 | Outpatient (RCR) | payer SELFPAY ==
[2017-11-22 15:29] LABS: International Normalized Ratio 1.7
== END 2017-11-22 16:00 | disposition home or self-care (01) ==
LOC: LAB 14:47
PROVIDERS: Family Provider Family Medicine; PCP Family Medicine; Visit Provider Internal Medicine Cardiovascular Disease
DX: Z79.01 Long term (current) use of 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 (principal)
CPT/HCPCS: 36415; 85610

== ENCOUNTER 2017-11-28 22:43 | Emergency (ER) | payer MEDICARE, OTHER, SELFPAY ==
[2017-11-28 22:45] VITALS: BP 126/69; PULSE 91; RESP 18; TEMP 36.4; O2SAT 98; BMI 30.6
--- NOTE | 2017-11-28 23:27 | ED.DCSUM_ITS ---
- ER Visit Summary Date of Service: 11/28/17 Chief Complaint: [] Blood in my mouth History of Present Illness: The patient is a 82 F patient on Coumadin noticed some bleeding in her mouth. Is not coming from her throat she is not coughing or vomiting it up. She just noticed it in her mouth. Last INR is 1.7. No nosebleed. Comes in for further evaluation. Otherwise feels okay. Physical Examination: [] Vital signs reviewed General: Well-nourished well-developed Head: Normocephalic atraumatic Eyes: Pupils equal round and reactive to light extraocular movements intact ENT: TMs clear no hemotympanum no trauma. Left premolar has been resected remotely. She is having some very mild bleeding from the gumline. This was found after she switched her mouth out with water. No nosebleed or oral pharynx bleeding Neck: Nontender full range of motion Cardiovascular: Regular rate rhythm no murmurs normal S1-S2 Respiratory: No distress clear to auscultation bilaterally chest nontender Abdomen: Soft nontender nondistended normal bowel sounds no masses Back: Nontender no CVA tenderness Extremities: Nontender active range of motion ?4 extremities no trauma Skin: Normal color no trauma Neuro alert oriented cranial nerves II through XII intact normal strength sensation reflexes Test Results: [] Emergency Department Course and Treatment: [] Patient applied pressure with a Kleenex biting down on it. INR checked. INR is 1.6. Bleeding helped tremendously with pressure. Will be discharged home. I will have her keep taking her Coumadin if the bleeding stops by tomorrow. If not she will call her doctor for further decision-making Treatment Plan: [] Disposition: [] Impression: [] Gumline bleeding Coumadin coagulopathy This note was generated with [employer]ation software. It may contain incorrect words, spelling, and punctuation that were not noted in review of the chart prior to signing ED Disposition - Plan for ED Patient: Chief Complaint: Other, Pain/Inj Referrals: Gilberto Rios MD [Primary Care Provider] -
[2017-11-28 23:52] LABS: International Normalized Ratio 1.6; Prothrombin Time (Protime)PT. 19.2 SECONDS (11.7-14.9)
--- NOTE | 2017-11-28 23:56 | ED.DEP ---
ED Disposition - Plan for ED Patient: Disposition: Home or Assisted Living Chief Complaint: Other, Pain/Inj Instructions: Taking?Coumadin Referrals: Gilberto Rios MD [Primary Care Provider] -
[2017-11-29 00:05] VITALS: BP 116/64; PULSE 76; RESP 16; O2SAT 94
== END 2017-11-29 00:05 | disposition home or self-care (01) ==
PROVIDERS: Emergency Provider Emergency Medicine; Family Provider Family Medicine; PCP Family Medicine
DX: K06.8 Other specified disorders of gingiva and edentulous alveolar ridge (principal); T45.515A Adverse effect of 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, initial encounter; Y92.9 Unspecified place or not applicable; I13.0 Hypertensive heart and chronic kidney disease with heart failure and stage 1 through stage 4 chronic kidney disease, or unspecified chronic kidney disease; N18.3 Chronic kidney disease, stage 3 (moderate); I50.9 Heart failure, unspecified; I25.10 Atherosclerotic heart disease of native coronary artery without angina pectoris; Z85.528 Personal history of other malignant neoplasm of kidney; Z85.841 Personal history of malignant neoplasm of brain
CPT/HCPCS: 85610; 99282

== ENCOUNTER → 2017-12-06 12:04 | Outpatient (CLI) | payer MEDICARE, OTHER, SELFPAY ==
[2017-12-06 14:33] LABS: Anion Gap 10 (5-15); BUN 64 mg/dL (7-18); BUN/Creat Ratio 25.7 RATIO (10-20); Calcium,Total 9.9 mg/dL (8.5-10.1); Chloride 93 mmol/L (98-107); Creatinine, Serum 2.49 mg/dL (0.55-1.02); EST Glomerular Filtration Rate 20 mL/min (>60); Est Glom Filt Rate - Afr Amer 24 mL/min (>60); Glucose 129 mg/dL (74-106); Potassium 3.5 mmol/L (3.5-5.1); Sodium Level 137 mmol/L (136-145)
[2017-12-06 14:38] LABS: International Normalized Ratio 1.4; Prothrombin Time (Protime)PT. 17.1 SECONDS (11.7-14.9)
== END ==
PROVIDERS: Nurse Practitioner Family; Family Provider Family Medicine; PCP Family Medicine; Visit Provider Internal Medicine Cardiovascular Disease
DX: I25.5 Ischemic cardiomyopathy (principal); N18.3 Chronic kidney disease, stage 3 (moderate); I48.91 Unspecified atrial fibrillation; Z79.01 Long term (current) use of 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
CPT/HCPCS: 80048; 85610

== ENCOUNTER → 2017-12-07 06:52 | Outpatient (CLI) | payer MEDICARE, OTHER, SELFPAY ==
--- NOTE | 2017-12-07 10:12 | STRESSREP ---
Stress Test Report Date: 12/07/2017 Procedure: Pharmacologic stress nuclear imaging study Indications: CAD; CABG; mitral valve replacement; ICD Consent: Per the patient Procedure: The patient underwent pharmacologic (Regadenoson) evaluation with a peak heart rate of 125 beats per minute (90 predicted maximal heart rate) and a peak blood pressure of 142/76 mmHg. The baseline ECG demonstrated sinus tachycardia; left IVCD. The peak pharmacologic ECG demonstrated no obvious ECG changes. There were no cardiac dysrhythmias pretest, during pharmacologic infusion, or recovery. There was no complaint of chest discomfort during pharmacologic infusion or recovery. The examination was discontinued secondary to completion of protocol. Impression: 1. Pharmacologic (Regadenoson) evaluation 2. Peak pharmacologic ECG with continued left IVCD pattern. 3. There was a rare PVC pretest 4. Nuclear images pending Myocardial perfusion imaging study: Technique: The patient was injected with 10 millicuries of technetium 99m Cardiolite and subsequently rest SPECT Cardiolite nuclear imaging was obtained in the horizontal long, vertical long, and short axis views. The patient underwent pharmacologic (Regadenoson) evaluation with a peak heart rate of 125 beats per minute (90 % percent predicted maximal heart rate) and a peak blood pressure of 142/76 mmHg. The patient was injected with 32.4 millicuries of technetium 99m Cardiolite and subsequently stress SPECT Cardiolite nuclear imaging was obtained in the horizontal long, vertical long, and short axis views. A gated Cardiolite study at peak stress was obtained. Interpretation: Rest and stress SPECT Cardiolite nuclear imaging status post realignment, normalization, and attenuation correction demonstrate the appearance of extracardiac/gastrointestinal tracer uptake and otherwise appearing to demonstrate relative uniform tracer uptake with the exception of a small area of subtle diminished tracer uptake near the apical segments without significant change between rest and stress. There is also suggestion of left ventricular dilatation. There is diminished end systolic thickening and brightening. The gated Cardiolite study demonstrates diminished myocardial thickening and inward wall motion. The reported LVEF is 17 %. Impression: 1. Rest and stress SPECT Cardiolite nuclear imaging demonstrate a small area of subtle diminished tracer uptake near the apical segments appearing compatible with physiologic apical thinning with no myocardial perfusion changes considered diagnostic for associated stress-induced myocardial ischemia. 2. Rest and stress SPECT Cardiolite nuclear imaging appear suggestive of left ventricular dilatation 3. The gated Cardiolite study reports an LVEF of 17 %. This note was generated with [employer] software. It may contain incorrect words, spelling, and punctuation that were not noted in checking the note before signing.
== END ==
PROVIDERS: Family Provider Family Medicine; PCP Family Medicine; Visit Provider Nurse Practitioner Family
DX: I25.10 Atherosclerotic heart disease of native coronary artery without angina pectoris (principal); I25.5 Ischemic cardiomyopathy; N18.3 Chronic kidney disease, stage 3 (moderate); Z95.1 Presence of aortocoronary bypass graft
CPT/HCPCS: 78452; 93017; A9500; A4216; J2785

== ENCOUNTER → 2017-12-25 14:22 | Outpatient (CLI) | payer MEDICARE, OTHER, SELFPAY ==
[2017-12-25 16:29] LABS: Albumin, Serum 3.7 g/dL (3.2-5.0); BUN 60 mg/dL (7-18); BUN/Creat Ratio 21.9 RATIO (10-20); Calcium,Total 9.5 mg/dL (8.5-10.1); Chloride 90 mmol/L (98-107); Creatinine, Serum 2.74 mg/dL (0.55-1.02); EST Glomerular Filtration Rate 18 mL/min (>60); Est Glom Filt Rate - Afr Amer 21 mL/min (>60); Glucose 101 mg/dL (74-106); Phosphorus 4.1 mg/dL (2.5-4.9); Potassium 3.8 mmol/L (3.5-5.1); Sodium Level 131 mmol/L (136-145)
[2017-12-25 16:32] LABS: Microalbumin,Random Urine 26.6 mg/L (NO RANGE EST.); Microalbumin:Creatinine Ratio 100.4 mg/g CRE (<30 mg/g CRE)
== END ==
PROVIDERS: Family Provider Family Medicine; PCP Family Medicine; Visit Provider Internal Medicine Nephrology
DX: N18.3 Chronic kidney disease, stage 3 (moderate) (principal)
CPT/HCPCS: 36415; 80069; 82043; 82570

== ENCOUNTER → 2017-12-25 15:08 | Outpatient (CLI) | payer MEDICARE, OTHER, SELFPAY | PROVIDERS: Family Provider Family Medicine; PCP Family Medicine; Referring Provider Internal Medicine Nephrology; Visit Provider Internal Medicine Nephrology | DX: C64.9 Malignant neoplasm of unspecified kidney, except renal pelvis (principal) ==

== ENCOUNTER 2017-12-27 11:48 | Outpatient (RCR) | payer MEDICARE, OTHER, SELFPAY ==
[2017-12-13 14:27] LABS: International Normalized Ratio 1.8; Prothrombin Time (Protime)PT. 20.6 SECONDS (11.7-14.9)
[2017-12-27 12:58] LABS: International Normalized Ratio 1.7; Prothrombin Time (Protime)PT. 20.3 SECONDS (11.7-14.9)
== END 2017-12-27 13:00 | disposition home or self-care (01) ==
LOC: LAB 11:48
PROVIDERS: Family Provider Family Medicine; PCP Family Medicine; Visit Provider Internal Medicine Cardiovascular Disease
DX: Z79.01 Long term (current) use of 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 (principal)
CPT/HCPCS: 36415; 85610

== ENCOUNTER → 2018-01-03 14:41 | Outpatient (CLI) | payer MEDICARE, OTHER, SELFPAY ==
--- NOTE | 2018-01-03 14:43 | US_ITS ---
STUDY: RENAL ULTRASOUND - COMPLETE REASON FOR EXAM: Female, 82 years old. CKD Hx of CA of rt kidney; Rt kidney removed sometime between 2004 and 2006. Pt was unsure. TECHNIQUE: Ultrasound evaluation of the kidneys was performed with real-time and static ochoa-scale imaging. COMPARISON: None. FINDINGS: RIGHT KIDNEY: Has been removed. LEFT KIDNEY: Normal location of the left kidney, which is normal in size. The left kidney measures 12 x 5.3 x 4.3 cm. There is a normal cortex of the left kidney. The renal cortex measures 1.5 cm. There is no left renal mass or cyst. There are no left renal calculi. There is an extra-renal pelvis of the left kidney. There is no distention of the renal calyces. DISTAL LEFT URETER: There is non-visualization of the distal left ureter. There is no demonstrated left ureterovesical junction calculus. There is a visualized left ureteral jet. AORTA: There is no demonstrated aneurysm.. I.V.C.: The IVC is patent. BLADDER: The distended urinary bladder has a volume of 69 ml. There is a normal wall thickness of the distended urinary bladder. There is no demonstrated mass within the urinary bladder. There are no demonstrated bladder calculi. US/Kidney and Bladder IMPRESSION: There is no hydronephrosis. Electronically Signed: Preet Soto MD at 14:29 EDT Tel , Service support ,
== END ==
PROVIDERS: Family Provider Family Medicine; PCP Family Medicine; Visit Provider Internal Medicine Nephrology
DX: C64.9 Malignant neoplasm of unspecified kidney, except renal pelvis (principal)
CPT/HCPCS: 76770

== ENCOUNTER → 2018-01-14 10:06 | Outpatient (CLI) | payer MEDICARE, OTHER, SELFPAY ==
[2018-01-14 12:24] LABS: Absolute Lymphocyte Count 0.79 X10^3/ul (0.83-4.51); Absolute Neutrophil Count 4.4 X10^3/uL (2.0-7.7); Basophil# 0.01 X10^3/uL; Basophil% 0.2 % (0-1); Eosinophil# 0.05 X10^3/uL; Eosinophils% 0.9 % (0-5); Hematocrit 36.5 % (37-47); Hemoglobin 11.2 g/dl (12.0-15.0); Lymphocyte # 0.79 X10^3/ul (4.0); Lymphocyte % 13.8 % (19-41); Mean Corp Hgb Conc 30.7 g/gl (32-36); Mean Corpuscular Hgb 25.7 pg (27.0-32.0); Mean Corpuscular Volume 83.9 fL (81-99); Mean Platelet Vol. 9.1 fl (6.2-12.0); Monocyte# 0.46 X10^3/uL; Monocyte% 8.1 % (0-10); Platelet Count 135 K/mm3 (150-450); RBC Distribution Width CV 16.8 % (11.6-14.6); RBC Distribution Width SD 51.5 fl (35.1-43.9); Red Blood Count 4.35 M/mm3 (4.2-5.4); White Blood Count 5.7 K/mm3 (4.4-11.0)
[2018-01-14 12:25] LABS: POSITIVE COUNT NO; POSITIVE DIFFERENTIAL NO; POSITIVE MORPHOLOGY NO
== END ==
PROVIDERS: Family Provider Family Medicine; PCP Family Medicine; Visit Provider Nurse Practitioner Family
DX: L53.9 Erythematous condition, unspecified (principal)
CPT/HCPCS: 36415; 84550; 85025

== ENCOUNTER 2018-01-24 10:11 | Outpatient (RCR) | payer MEDICARE, OTHER, SELFPAY ==
[2018-01-10 11:17] LABS: International Normalized Ratio 2.3
[2018-01-24 10:48] LABS: International Normalized Ratio 2.9; Prothrombin Time (Protime)PT. 30.8 SECONDS (11.7-14.9)
[2018-01-24 11:05] LABS: Albumin, Serum 3.1 g/dL (3.2-5.0); BUN 33 mg/dL (7-18); BUN/Creat Ratio 17.8 RATIO (10-20); Chloride 103 mmol/L (98-107); Creatinine, Serum 1.85 mg/dL (0.55-1.02); EST Glomerular Filtration Rate 28 mL/min (>60); Est Glom Filt Rate - Afr Amer 34 mL/min (>60); Glucose 118 mg/dL (74-106); Phosphorus 4.3 mg/dL (2.5-4.9); Potassium 4.4 mmol/L (3.5-5.1); Sodium Level 143 mmol/L (136-145)
== END 2018-01-24 11:00 | disposition home or self-care (01) ==
LOC: LAB 10:11
PROVIDERS: Family Provider Family Medicine; PCP Family Medicine; Referring Provider Internal Medicine Cardiovascular Disease; Visit Provider Internal Medicine Cardiovascular Disease
DX: Z79.01 Long term (current) use of 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 (principal)
CPT/HCPCS: 36415; 80069; 85610

== ENCOUNTER 2018-02-14 10:08 | Outpatient (RCR) | payer MEDICARE, OTHER, SELFPAY ==
[2018-02-14 11:14] LABS: International Normalized Ratio 2.6; Prothrombin Time (Protime)PT. 27.9 SECONDS (11.7-14.9)
== END 2018-03-01 11:23 | disposition home or self-care (01) ==
LOC: LAB 10:08
PROVIDERS: Family Provider Family Medicine; PCP Family Medicine; Referring Provider Internal Medicine Cardiovascular Disease; Visit Provider Internal Medicine Cardiovascular Disease
DX: Z79.01 Long term (current) use of 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 (principal)
CPT/HCPCS: 36415; 85610

== ENCOUNTER 2018-03-14 15:33 | Outpatient (RCR) | payer MEDICARE, OTHER, SELFPAY ==
[2018-03-14 17:28] LABS: International Normalized Ratio 2.4; Prothrombin Time (Protime)PT. 26.5 SECONDS (11.7-14.9)
--- OUTSIDE RECORDS SUMMARY | 2018-04-30 13:14 | XMS RPT_ITS ---
:1935 Author Organization [facility] Support Name Relationship Address Phone ANGIE KEY Unavailable [address] + [place] [address] R Unavailable Unavailable Unavailable CIRILO, LORI Unavailable [address] + [place] [address] ANGIE KEY Un[address] + [place] [address] R Unavailable Unavailable Unavailable CIRILO, LORI Unavailable [address] + [place] [address] ANGIE KEY Un[address] + [place] [address] R Unavailable Unavailable Unavailable CIRILO, LORI Unavailable [address] + [place] [address] ANGIE KEY Unavailable [address] + [place] [address] R Unavailable Unavailable Unavailable CIRILO, LORI Unavailable [address] + [place] [address] ANGIE KEY Unavailable [address] + [place] [address] R Unavailable Unavailable Unavailable CIRILO, LORI Unavailable [address] + [place] [address] ANGIE KEY Unavailable [address] + [place] [address] R Unavailable Unavailable Unavailable CIRILO, LORI Unavailable [address] + [place] [address] ANGIE KEY Un[address] + [place] [address] R Unavailable Unavailable Unavailable CIRILO, LORI Unavailable [address] + [place] [address] TYRA KEYE Un[address] + [facility] [place] [address] R Unavailable Unavailable Unavailable CIRILO, LORI Unavailable [address] + [place] [address] [address]YRA [address]E Un[address] + [place] [address] R Unavailable Unavailable Unavailable CIRILO, LORI Unavailable [address] + [place] [address] TYRA KEYE Un[address] + [facility] [place] [address] R Unavailable Unavailable Unavailable CIRILO, LORI Unavailable [address] + [place] [address] TYRA KEYE Un[address] + [facility] [place] [address] R Unavailable Unavailable Unavailable CIRILO, LORI Unavailable [address] + [place] [address] TYRA KEYE Un[address] + [facility] [place] [address] R Unavailable Unavailable Unavailable CIRILO, LORI Unavailable [address] + [place] [address] TYRA KEYE Un[address] + [facility] [place] [address] R Unavailable Unavailable Unavailable CIRILO, LORI Unavailable [address] + [place] [address] TYRA KEYE Un[address] + [facility] [place] [address] R Unavailable Unavailable Unavailable CIRILO, LORI Unavailable [address] + [place] [address] [address] + [facility] [place] [address] R Unavailable Unavailable Unavailable CIRILO, LORI Unavailable [address] + [place] [address] NELLY[address]ANGIE Un[address] + [facility] [place] [address] R Unavailable Unavailable Unavailable CIRILO, LORI Unavailable [address] + [place] [address] ANGIE KEY Unavailable Unavailable + R Unavailable Unavailable Unavailable CIRILO LORI Unavailable Unavailable + ANGIE KEY Unavailable Unavailable + R Unavailable Unavailable Unavailable CIRILO, LORI Unavailable Unavailable + TYRA KEYE Unavailable [address] + [place] [address] R Unavailable Unavailable Unavailable CIRILO LORI Unavailable [address] + [place] [address] Tyra Keye Unavailable Unavailable + R Unavailable Unavailable Unavailable Cirilo Lori Unavailable Unavailable + TYRA KEYE Unavailable Unavailable + R Unavailable Unavailable Unavailable CIRILO LORI Unavailable Unavailable + Tyra Keye Unavailable Unavailable + R Unavailable Unavailable Unavailable Cirilo Lori Unavailable Unavailable + TYRA KEYE Unavailable Unavailable + R Unavailable Unavailable Unavailable CIRILO LORI Unavailable Unavailable + R Unavailable Unavailable Unavailable CIRILO LORI Unavailable Unavailable + TYRA KEYE Unavailable Unavailable + R Unavailable Unavailable Unavailable CIRILO LORI Unavailable Unavailable + TYRA KEYE Unavailable Unavailable + R Unavailable Unavailable Unavailable CIRILO LORI Unavailable Unavailable + TYRA KEYE Unavailable Unavailable + R Unavailable Unavailable Unavailable CIRILO LORI Unavailable Unavailable + TYRA KEYE Unavailable Unavailable + R Unavailable Unavailable Unavailable CIRILO LORI Unavailable Unavailable + R Unavailable Unavailable Unavailable CIRILO LORI Unavailable Unavailable + R Unavailable Unavailable Unavailable CIRILO, LORI Unavailable Unavailable + R Unavailable Unavailable Unavailable CIRILO, LORI Unavailable Unavailable + R Unavailable Unavailable Unavailable CIRILO, LORI Unavailable Unavailable + R Unavailable Unavailable Unavailable CIRILO, LORI Unavailable Unavailable + R Unavailable Unavailable Unavailable CIRILO, LORI Unavailable Unavailable + R Unavailable Unavailable Unavailable CIRILO, LORI Unavailable Unavailable + R Unavailable Unavailable Unavailable CIRILO, LORI Unavailable Unavailable + R Unavailable Unavailable Unavailable CIRILO, LORI Unavailable Unavailable + R Unavailable Unavailable Unavailable CIRILO, LORI Unavailable Unavailable + R Unavailable Unavailable Unavailable CIRILO, LORI Unavailable Unavailable + R Unavailable Unavailable Unavailable CIRILO, LORI Unavailable Unavailable + R Unavailable Unavailable Unavailable CIRILO, LORI Unavailable Unavailable + R Unavailable Unavailable Unavailable CIRILO, LORI Unavailable Unavailable + R Unavailable Unavailable Unavailable CIRILO, LORI Unavailable Unavailable + R Unavailable Unavailable Unavailable CIRILO, LORI Unavailable NA + [place], [place] R Unavailable Unavailable Unavailable CIRILO, LORI Unavailable NA + [place], [place] R Unavailable Unavailable Unavailable CIRILO, LORI Unavailable NA + [place], [place] R Unavailable Unavailable Unavailable CIRILO, LORI Unavailable NA + [place], [place] R Unavailable Unavailable Unavailable CIRILO, LORI Unavailable NA + [place], [place] R Unavailable Unavailable Unavailable CIRILO, LORI Unavailable NA + [place], [place] R Unavailable Unavailable Unavailable CIRILO, LORI Unavailable NA + [place], [place] Care Team Providers Name Role Phone Salvador Conn Attending Unavailable Salvador Conn Referring Unavailable Gilberto Rob Primary Care Unavailable Kelly Parker Attending Unavailable Rob, Gilberto Referring Unavailable Salvador Conn Attending Unavailable Rob, Gilberto Primary Care Unavailable DOCTOR, OUT OF TOWN Consulting Unavailable Salvador Conn Attending Unavailable Salvador Conn Referring Unavailable Rob, Gilberto Primary Care Unavailable Salvador Conn Attending Unavailable Rob, Gilberto Primary Care Unavailable DOCTOR, OUT OF TOWN Consulting Unavailable Stacy Rowe Attending Unavailable Rob, Gilberto Primary Care Unavailable Salvador Conn Attending Unavailable Rob, Gilberto Primary Care Unavailable Kelly Parker Attending Unavailable Rob, Gilberto Referring Unavailable Salvador Conn Attending Unavailable Salvador Conn Referring Unavailable Rob, Gilberto Primary Care Unavailable Salvador Conn Attending Unavailable Rob, Gilberto Primary Care Unavailable DOCTOR, OUT OF TOWN Consulting Unavailable Rob, Gilberto Attending Unavailable Rob, Gilberto Primary Care Unavailable Salvador Conn Attending Unavailable Salvador Conn Referring Unavailable Rob, Gilberto Primary Care Unavailable Salvdaor Conn Attending Unavailable Salvador Conn Referring Unavailable Rob, Gilberto Primary Care Unavailable Salvador Conn Attending Unavailable Salvador Conn Referring Unavailable Rob, Gilberto Primary Care Unavailable Salvador Conn Attending Unavailable Salvador Conn Referring Unavailable Rob, Gilberto Primary Care Unavailable Salvador Conn Attending Unavailable Salvador Conn Referring Unavailable Rob, Gilberto Primary Care Unavailable Rob, Gilberto Attending Unavailable Rob, Gilberto Primary Care Unavailable Kelly Parker Attending Unavailable Rob, Gilberto Referring Unavailable Kelly Parker Attending Unavailable Rob, Gilberto Referring Unavailable Rob, Gilberto Primary Care Unavailable Salvador Conn Attending Unavailable Salvador Conn Referring Unavailable Rob, Gilberto Primary Care Unavailable James Patel Attending Unavailable Rob, Gilberto Referring Unavailable Rob, Gilberto Primary Care Unavailable Salvador Conn Attending Unavailable Salvador Conn Referring Unavailable Rob, Gilberto Primary Care Unavailable Pat Johnson Attending Unavailable Salvador Conn Attending Unavailable Salvador Conn Referring Unavailable Rob, Gilberto Primary Care Unavailable Salvador Conn Attending Unavailable Rob, Gilberto Referring Unavailable Rob, Gilberto Primary Care Unavailable Rob, Gilberto Primary Care Unavailable Adarsh Gipson Admitting Unavailable Salvador Conn Consulting Unavailable Carmella Lara Attending Unavailable Adarsh Gipson Attending Unavailable Rob, Gilberto Primary Care Unavailable Adarsh Gipson Admitting Unavailable Salvador Conn Attending Unavailable Rob, Gilberto Primary Care Unavailable Salvador Conn Consulting Unavailable Kormeagan, Carmella Sara Consulting Unavailable Adarsh Gipson Admitting Unavailable Salvador Conn Attending Unavailable Rob, Gilberto Primary Care Unavailable Salvador Conn Consulting Unavailable Koram, Carmella Sara Consulting Unavailable Jopperi, Adarsh Admitting Unavailable Koram, Carmella Roota Attending Unavailable Rob, Gilberto Primary Care Unavailable Salvador Conn Consulting Unavailable Koram, Carmella Sara Consulting Unavailable Jopperi, Adarsh Admitting Unavailable Koram, Carmella Sara Attending Unavailable Rob, Gilberto Primary Care Unavailable Salvador Conn Consulting Unavailable Koram, Carmella Sara Consulting Unavailable Jopperi, Adarsh Admitting Unavailable Salvador Conn Attending Unavailable Rob, Gilberto Primary Care Unavailable Salvador Conn Consulting Unavailable Koram, Carmella Sara Consulting Unavailable Rob, Gilberto Attending Unavailable Rob, Gilberto Attending Unavailable Roof, James H Attending Unavailable Rob, Gilberto Referring Unavailable Rob, Gilberto Primary Care Unavailable Romaine Barber Attending Unavailable Salvador Conn Attending Unavailable Salvador Conn Referring Unavailable Rob, Gilberto Primary Care Unavailable Salvador Conn Attending Unavailable Rob, Gilberto Primary Care Unavailable Roof, James H Attending Unavailable Roof, James H Referring Unavailable Rob, Gilberto Primary Care Unavailable Stacy Rowe Attending Unavailable Rob, Gilberto Primary Care Unavailable Zane, Stacy Attending Unavailable Rob, Gilberto Primary Care Unavailable Zane, Stacy Referring Unavailable Zane, Stacy Attending Unavailable Rob, Gilberto Primary Care Unavailable Kelly Parker Attending Unavailable Rbo, Gilberto Referring Unavailable Salvador Conn Attending Unavailable Salvador Conn Referring Unavailable Rob, Gilberto Primary Care Unavailable Gilberto Sweeney Attending Unavailable Roof, James H Referring Unavailable Stacy Rowe Attending Unavailable Rob, Gilberto Primary Care Unavailable Colin Lockett Attending Unavailable Rob, Gilberto Primary Care Unavailable Stacy Rowe Attending Unavailable Rob, Gilberto Primary Care Unavailable Salvador Conn Attending Unavailable Salvador Conn Referring Unavailable Rob, Gilberto Primary Care Unavailable Salvador Conn Attending Unavailable Salvador Conn Referring Unavailable Rob, Gilberto Primary Care Unavailable PROBLEMS PROBLEMS DATE TYPE CONDITION / CODE ATTENDING STATUS SOURCE 01/03/2018 Unknown 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, Hospital except renal pelvis / Repository C64.9(ICD-10) 12/06/2017 Unknown 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 / Community I25.5(ICD-10) Hospital Repository 12/06/2017 Unknown N18.3 - Chronic Salvador Conn kidney disease, stage [facility] 3 (moderate) / Hospital N18.3(ICD-10) Repository 04/18/2018 Unknown Z79.01 - snf Salvador Conn (current) use of [facility] 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 / Hospital Z79.01(ICD-10) Repository 11/22/2017 Unknown 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 / Z95.1(ICD-10) Hospital Repository 11/22/2017 Unknown 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 / I25.10(ICD-10) 11/01/2017 Unknown I10 - Essential Salvador Conn (primary) [facility] hypertension / Hospital I10(ICD-10) Repository 09/26/2017 Unknown 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 [place] [address] Pacemaker Check Date of Service: 04/17/181716 MR#: [id number] Acct: [id number] Name: TOBYKEREN E Rep #: [id number] : 1935 From: Kelly Parker Age/Sex: 82/F Location: [facility] Status: Signed Billing Codes ICD Device Billing: ICD Dev Interrogate (Rmt) 04/17/181717 <Electronically signed by Kelly Parker > Date Kelly Parker 04/23/18 0904<Electronically signed by Salvador Conn MD> Cosigner Signature: Date (if applicable) Salvador Conn MD CC: PROTHROMBIN TIME W/INR Collected: 03/14/2018 Status: F Source: [place] 3:42 PM [facility] REPOSITORY TYPE CODE TESTS RESULT OUT OF RANGE REFERENCE UNITS LAB L300.4150 11.7-14.9 SECONDS High PROTIME 26.5 LAB L300.4200 Normal INR 2.4 Performed By: #### L300.3900 #### [facility] [address] [place], [place], [id number] PROTHROMBIN TIME W/INR Collected: 02/14/2018 Status: F Source: [place] 10:14 AM [facility] REPOSITORY TYPE CODE TESTS RESULT OUT OF RANGE REFERENCE UNITS LAB L300.4150 11.7-14.9 SECONDS High PROTIME 27.9 LAB L300.4200 Normal INR 2.6 Performed By: #### L300.3900 #### [facility] [address] [place], [address] PROTHROMBIN TIME W/INR Collected: 01/24/2018 Status: F Source: [place] 10:22 AM [facility] REPOSITORY Order Comment: DR. CONN GETS PT INR RESULTS, DR. Sara ROWE GETS RENAL RESULTS. TYPE CODE TESTS RESULT OUT OF RANGE REFERENCE UNITS LAB L300.4150 11.7-14.9 SECONDS High PROTIME 30.8 LAB L300.4200 Normal INR 2.9 Performed By: #### L300.3900 #### [facility] [address] [place], [place], [address] RENAL PROFILE Collected: 01/24/2018 Status: F Source: [place] 10:22 AM [facility] REPOSITORY Order Comment: DR. CONN GETS PT INR RESULTS, DR. Sara ROWE GETS RENAL RESULTS. TYPE CODE TESTS RESULT OUT OF RANGE REFERENCE UNITS LAB L501.0100 74-106 mg/dL High GLU 118 Result Comment: Fasting Glucose result from 100 to 125 mg/dL suggests IMPAIRED HOMEOSTASIS per A.D.A. criteria. Please note revised GLUCOSE reference range effective 2017. LAB L501.1000 7-18 mg/dL High BUN 33 LAB L501.1100 0.55-1.02 mg/dL High CREAT,SERUM 1.85 Result Comment: The validity of the calculated GFR AND GFRAA in patients over 70 years has not been determined. Clinical correlation is essential. LAB L501.1110 >60 mL/min Low EST GFR 28 Result Comment: Non- GFR Calc LAB L501.1115 >60 mL/min Low EST GFR - AA 34 Result Comment: GFR Calc LAB L501.1300 10-20 RATIO Normal BUN/CRE 17.8 LAB L501.1800 3.2-5.0 g/dL Low ALB 3.1 LAB L501.2200 8.5-10.1 mg/dL CA Normal 9.0 LAB L501.2300 2.5-4.9 mg/dL Normal PHOS 4.3 LAB L501.5300 136-145 mmol/L NA Normal 143 LAB L501.5600 3.5-5.1 mmol/L K Normal 4.4 LAB L501.5900 98-107 mmol/L CL Normal 103 LAB L501.6100 21.0-32.0 mmol/L Normal CO2 32.0 Performed By: #### L500.3600 #### [facility] [address] [place], [address] CBC W/DIFF, AUTOMATED Collected: 01/14/2018 Status: F Source: I[place] 10:07 AM [facility] REPOSITORY TYPE CODE TESTS RESULT OUT OF RANGE REFERENCE UNITS LAB L100.1000 4.4-11.0 K/mm3 Normal WBC 5.7 LAB L100.1200 4.2-5.4 M/mm3 Normal RBC 4.35 LAB L100.1300 12.0-15.0 g/dl Low HGB 11.2 LAB L100.1400 37-47 % Low HCT 36.5 LAB L100.1500 81-99 fL Normal MCV 83.9 LAB L100.1600 27.0-32.0 pg Low MCH 25.7 LAB L100.1700 32-36 g/gl Low MCHC 30.7 LAB L100.1810 11.6-14.6 % High RDW CV 16.8 LAB L100.1820 35.1-43.9 fl High RDW SD 51.5 LAB L100.1900 150-450 K/mm3 Low PLT 135 LAB L100.2000 6.2-12.0 fl Normal MPV 9.1 LAB L100.2100 47-70 % High NEUT% 77.0 LAB L100.2200 19-41 % Low LY% 13.8 LAB L100.2300 0-10 % Normal MONO% 8.1 LAB L100.2400 0-5 % Normal EO% 0.9 LAB L100.2500 0-1 % Normal BASO% 0.2 LAB L100.2550 0.0-0.9 % Normal IM GRAN % 0.000 Result Comment: IG% - Immature Granulocytes (promyelocytes, myelocytes and metamyelocytes) > 1% indicates that a LEFT SHIFT is Present. LAB L100.2620 2.0-7.7 X10 3/uL Normal Absolute Neut 4.4 LAB L100.2720 0.83-4.51 X10 3/ul Low Absolute Lymph 0.79 Performed By: #### L100.0100, L501.1400 #### [facility] [address] [facility] [address] [place], [place], [id number] URIC ACID Collected: 01/14/2018 Status: F Source: IONE 10:07 AM [facility] REPOSITORY TYPE CODE TESTS RESULT OUT OF RANGE REFERENCE UNITS LAB L501.1400 2.6-6.0 mg/dL High URIC 7.0 Result Comment: The drugs N-Acetylcysteine and Metamizole may falsely depress this assay. Performed By: #### L100.0100, L501.1400 #### [facility] [address] [place], [place], [address] PROTHROMBIN TIME W/INR Collected: 01/10/2018 Status: F Source: IONE 10:30 AM [facility] REPOSITORY TYPE CODE TESTS RESULT OUT OF RANGE REFERENCE UNITS LAB L300.4150 11.7-14.9 SECONDS High PROTIME 25.0 LAB L300.4200 Normal INR 2.3 Performed By: #### L300.3900 #### [facility] [address] [place], [address] PACEMAKER CHECK Observed: 01/03/2018 Status: F Source: IONE 3:32 PM [facility] REPOSITORY [facility] [address] [place] [address] Pacemaker Check Date of Service: 01/02/18 1319 MR#: [id number] Acct: [id number] Name: KEREN LUIS Rep #: [id number] : 1935 From: Kelly Parker Age/Sex: 82/F Location: [facility] Status: Signed Billing Codes ICD Device Billing: ICD Dev Prog Eval, Single 01/02/18 1322 <Electronically signed by Kelly Parker > Date Kelly Parker 01/03/18 1532<Electronically signed by Salvador Conn MD> Cosigner Signature: Date (if applicable) Salvador Conn MD CC: KIDNEY AND BLADDER Observed: 01/03/2018 Status: F Source: [place] 2:44 PM [facility] REPOSITORY [facility] Imaging Services [address] [place] [address] Kidney and Bladder MR#: [id number] Acct: [id number] Name: KEREN LUIS Rep #: [id number] : 1935 F 82 From: Preet Soto MD PCP: Gilberto Rob MD Status: REG CLI Study: Kidney and Bladder Date of Exam: 01/03/18 Exam# [id number] Ordering Dr: Stacy Rowe DO STUDY: RENAL ULTRASOUND - COMPLETE REASON FOR EXAM: Female, 82 years old. CKD Hx of CA of rt kidney; Rt kidney removed sometime between 2004 and 2006. Pt was unsure. TECHNIQUE: Ultrasound evaluation of the kidneys was performed with real-time and static ochoa-scale imaging. COMPARISON: None. FINDINGS: RIGHT KIDNEY: Has been removed. LEFT KIDNEY: Normal location of the left kidney, which is normal in size. The left kidney measures 12 x 5.3 x 4.3 cm. There is a normal cortex of the left kidney. The renal cortex measures 1.5 cm. There is no left renal mass or cyst. There are no left renal calculi. There is an extra-renal pelvis of the left kidney. There is no distention of the renal calyces. DISTAL LEFT URETER: There is non-visualization of the distal left ureter. There is no demonstrated left ureterovesical junction calculus. There is a visualized left ureteral jet. AORTA: There is no demonstrated aneurysm.. I.V.C.: The IVC is patent. BLADDER: The distended urinary bladder has a volume of 69 ml. There is a normal wall thickness of the distended urinary bladder. There is no demonstrated mass within the urinary bladder. There are no demonstrated bladder calculi. US/Kidney and Bladder IMPRESSION: There is no hydronephrosis. Electronically Signed: Preet Soto MD at 14:29 EDT Tel , Service support , CC: Stacy Rowe DO; Gilberto Rob MD Air Chipper: Signed PROTHROMBIN TIME W/INR Collected: 12/27/2017 Status: F Source: [place] 11:54 AM [facility] REPOSITORY TYPE CODE TESTS RESULT OUT OF RANGE REFERENCE UNITS LAB L300.4150 11.7-14.9 SECONDS High PROTIME 20.3 LAB L300.4200 Normal INR 1.7 Performed By: #### L300.3900 #### [facility] [address] [place], [address] MICROALB:CREAT Collected: 12/25/2017 Status: F Source: [place] RATIO,RANDOM UR 3:09 PM [facility] REPOSITORY TYPE CODE TESTS RESULT OUT OF RANGE REFERENCE UNITS LAB L501.1200 NO RANGE EST. mg/dL Normal UR CREAT 26.50 LAB L502.0500 NO RANGE EST. mg/L Normal 26.6 MICROALBUMIN ,UR LAB L502.0600 <30 mg/g CRE mg/g CRE High 100.4 MALB:CREAT Performed By: #### L502.0250 #### [facility] [address] [place], [address] RENAL PROFILE Collected: 12/25/2017 Status: F Source: [place] 2:23 PM [facility] REPOSITORY TYPE CODE TESTS RESULT OUT OF RANGE REFERENCE UNITS LAB L501.0100 74-106 mg/dL Normal GLU 101 Result Comment: Fasting Glucose result from 100 to 125 mg/dL suggests IMPAIRED HOMEOSTASIS per A.D.A. criteria. Please note revised GLUCOSE reference range effective 2017. LAB L501.1000 7-18 mg/dL High BUN 60 LAB L501.1100 0.55-1.02 mg/dL High CREAT,SERUM 2.74 Result Comment: The validity of the calculated GFR AND GFRAA in patients over 70 years has not been determined. Clinical correlation is essential. LAB L501.1110 >60 mL/min Low EST GFR 18 Result Comment: Non- GFR Calc LAB L501.1115 >60 mL/min Low EST GFR - AA 21 Result Comment: GFR Calc LAB L501.1300 10-20 RATIO High BUN/CRE 21.9 LAB L501.1800 3.2-5.0 g/dL Normal ALB 3.7 LAB L501.2200 8.5-10.1 mg/dL CA Normal 9.5 LAB L501.2300 2.5-4.9 mg/dL Normal PHOS 4.1 LAB L501.5300 136-145 mmol/L Low NA 131 LAB L501.5600 3.5-5.1 mmol/L K Normal 3.8 Result Comment: Slight Hemolysis, Result may be falsely increased. LAB L501.5900 98-107 mmol/L Low CL 90 LAB L501.6100 21.0-32.0 mmol/L High CO2 35.0 Performed By: #### L500.3600 #### [facility] [address] [place], [address] PROTHROMBIN TIME W/INR Collected: 12/13/2017 Status: F Source: [place] 1:43 PM [facility] REPOSITORY TYPE CODE TESTS RESULT OUT OF RANGE REFERENCE UNITS LAB L300.4150 11.7-14.9 SECONDS High PROTIME 20.6 LAB L300.4200 Normal INR 1.8 Performed By: #### L300.3900 #### [facility] [address] [place], [address] STRESS REPORT Observed: 12/07/2017 Status: F Source: [place] 10:16 AM [facility] REPOSITORY [facility] Cardiovascular Services [address] [facility] [place] [address] MR#: [id number] Acct: [id number] Name: KEREN LUIS Rep #: [id number] : 1935 82 From: Gilberto Sweeney MD Primary Care: Gilberto Rob MD Status: REG CLI Ordering Dr: Sex: F C Stress Test Report Date: 12/07/2017 Procedure: Pharmacologic stress nuclear imaging study Indications: CAD; CABG; mitral valve replacement; ICD Consent: Per the patient Procedure: The patient underwent pharmacologic (Regadenoson) evaluation with a peak heart rate of 125 beats per minute (90 predicted maximal heart rate) and a peak blood pressure of 142/76 mmHg. The baseline ECG demonstrated sinus tachycardia; left IVCD. The peak pharmacologic ECG demonstrated no obvious ECG changes. There were no cardiac dysrhythmias pretest, during pharmacologic infusion, or recovery. There was no complaint of chest discomfort during pharmacologic infusion or recovery. The examination was discontinued secondary to completion of protocol. Impression: 1. Pharmacologic (Regadenoson) evaluation 2. Peak pharmacologic ECG with continued left IVCD pattern. 3. There was a rare PVC pretest 4. Nuclear images pending Myocardial perfusion imaging study: Technique: The patient was injected with 10 millicuries of technetium 99m Cardiolite and subsequently rest SPECT Cardiolite nuclear imaging was obtained in the horizontal long, vertical long, and short axis views. The patient underwent pharmacologic (Regadenoson) evaluation with a peak heart rate of 125 beats per minute (90 % percent predicted maximal heart rate) and a peak blood pressure of 142/76 mmHg. The patient was injected with 32.4 millicuries of technetium 99m Cardiolite and subsequently stress SPECT Cardiolite nuclear imaging was obtained in the horizontal long, vertical long, and short axis views. A gated Cardiolite study at peak stress was obtained. Interpretation: Rest and stress SPECT Cardiolite nuclear imaging status post realignment, normalization, and attenuation correction demonstrate the appearance of extracardiac/gastrointestinal tracer uptake and otherwise appearing to demonstrate relative uniform tracer uptake with the exception of a small area of subtle diminished tracer uptake near the apical segments without significant change between rest and stress. There is also suggestion of left ventricular dilatation. There is diminished end systolic thickening and brightening. The gated Cardiolite study demonstrates diminished myocardial thickening and inward wall motion. The reported LVEF is 17 %. Impression: 1. Rest and stress SPECT Cardiolite nuclear imaging demonstrate a small area of subtle diminished tracer uptake near the apical segments appearing compatible with physiologic apical thinning with no myocardial perfusion changes considered diagnostic for associated stress-induced myocardial ischemia. 2. Rest and stress SPECT Cardiolite nuclear imaging appear suggestive of left ventricular dilatation 3. The gated Cardiolite study reports an LVEF of 17 %. This note was generated with INSOMENIAation software. It may contain incorrect words, spelling, and punctuation that were not noted in checking the note before signing. 12/07/17 1016 <Electronically signed by Gilberto Sweeney MD> Date Gilberto Sweeney MD CC: LILY Patel; Salvador Conn MD; Gilberto Rob MD Date Dictated: 12/07/17 1012 Date Transcribed: 12/07/17 1012 Air Chipper: PM Signed BASIC METABOLIC Collected: 12/06/2017 Status: F Source: FAISAL PROFILE (BMP) 12:06 PM [facility] REPOSITORY TYPE CODE TESTS RESULT OUT OF RANGE REFERENCE UNITS LAB L501.0100 74-106 mg/dL High GLU 129 Result Comment: Fasting Glucose result greater than or equal to 126 mg/dL suggests DIABETES MELLITUS per A.D.A. criteria. Please note revised GLUCOSE reference range effective 2017. LAB L501.1000 7-18 mg/dL High BUN 64 LAB L501.1100 0.55-1.02 mg/dL High CREAT,SERUM 2.49 Result Comment: The validity of the calculated GFR AND GFRAA in patients over 70 years has not been determined. Clinical correlation is essential. LAB L501.1110 >60 mL/min Low EST GFR 20 Result Comment: Non- GFR Calc LAB L501.1115 >60 mL/min Low EST GFR - AA 24 Result Comment: GFR Calc LAB L501.1300 10-20 RATIO High BUN/CRE 25.7 LAB L501.2200 8.5-10.1 mg/dL CA Normal 9.9 LAB L501.5300 136-145 mmol/L NA Normal 137 LAB L501.5600 3.5-5.1 mmol/L K Normal 3.5 LAB L501.5900 98-107 mmol/L Low CL 93 LAB L501.6100 21.0-32.0 mmol/L High CO2 34.0 LAB L501.6200 5-15 Normal GAP 10 Performed By: #### L500.2500 #### [facility] [address] [place], [address] PROTHROMBIN TIME W/INR Collected: 12/06/2017 Status: F Source: IONE 12:06 PM [facility] REPOSITORY Order Comment: Comments: STANDING ORDER Comments: STANDING ORDER TYPE CODE TESTS RESULT OUT OF RANGE REFERENCE UNITS LAB L300.4150 11.7-14.9 SECONDS High PROTIME 17.1 LAB L300.4200 Normal INR 1.4 Performed By: #### L300.3900 #### [facility] [address] [place], [address] EMERGENCY DEPARTMENT Observed: 11/29/2017 Status: F Source: IONE SUMMARY 1:11 AM [facility] REPOSITORY [facility] Medical Records Department [address] [place] [id number] Emergency Department Summary 11/28/17 2326 MR#: [id number] Acct: [id number] Name: KEREN LUIS Rep #: [id number] : 1935 82 From: Romaine Barber MD PCP: Gilberto Rob MD Status: DEP ER - ER Visit Summary Date of Service: 11/28/17 Chief Complaint: [] Blood in my mouth History of Present Illness: The patient is a 82 F patient on Coumadin noticed some bleeding in her mouth. Is not coming from her throat she is not coughing or vomiting it up. She just noticed it in her mouth. Last INR is 1.7. No nosebleed. Comes in for further evaluation. Otherwise feels okay. Physical Examination: [] Vital signs reviewed General: Well-nourished well-developed Head: Normocephalic atraumatic Eyes: Pupils equal round and reactive to light extraocular movements intact ENT: TMs clear no hemotympanum no trauma. Left premolar has been resected remotely. She is having some very mild bleeding from the gumline. This was found after she switched her mouth out with water. No nosebleed or oral pharynx bleeding Neck: Nontender full range of motion Cardiovascular: Regular rate rhythm no murmurs normal S1-S2 Respiratory: No distress clear to auscultation bilaterally chest nontender Abdomen: Soft nontender nondistended normal bowel sounds no masses Back: Nontender no CVA tenderness Extremities: Nontender active range of motion 4 extremities no trauma Skin: Normal color no trauma Neuro alert oriented cranial nerves II through XII intact normal strength sensation reflexes Test Results: [] Emergency Department Course and Treatment: [] Patient applied pressure with a Kleenex biting down on it. INR checked. INR is 1.6. Bleeding helped tremendously with pressure. Will be discharged home. I will have her keep taking her Coumadin if the bleeding stops by tomorrow. If not she will call her doctor for further decision-making Treatment Plan: [] Disposition: [] Impression: [] Gumline bleeding Coumadin coagulopathy This note was generated with Coveo dictation software. It may contain incorrect words, spelling, and punctuation that were not noted in review of the chart prior to signing ED Disposition - Plan for ED Patient: Chief Complaint: Other, Pain/Inj Referrals: Gilberto Rob MD [Primary Care Provider] - What to do if you have Problems For any increased pain, shortness of breath, bleeding, nausea or vomiting, chest pain, or any unexpected problems, contact your Primary Care Provider. Call [employer] [facility] ([phone]) or report to the closest Emergency Room. Call 911 if necessary. 11/29/17110 <Electronically signed by Romaine Barber MD> Date Romaine Barber MD Cosigner Signature (If Indicated): Date _ CC: Gilberto Rob MD DISCHARGE INSTRUCTION Observed: 11/29/2017 Status: F Source: FAISAL 1:11 AM [facility] REPOSITORY [facility] Medical Records Department [address] [place] [address] Discharge Instruction 11/28/17 2356 MR#: [id number] Acct: [id number] Name: KEREN LUIS Rep #: [id number] : 1935 82 From: Romaine Barber MD PCP: Gilberto Rob MD Status: DEP ER ED Disposition - Plan for ED Patient: Disposition: Home or Assisted Living Chief Complaint: Other, Pain/Inj Instructions: Taking Coumadin Referrals: Gilberto Rob MD [Primary Care Provider] - What to do if you have Problems For any increased pain, shortness of breath, bleeding, nausea or vomiting, chest pain, or any unexpected problems, contact your Primary Care Provider. Call [facility] ([phone]) or report to the closest Emergency Room. Call 911 if necessary. 11/29/17110 <Electronically signed by Romaine Barber MD> Date Romaine Barber MD Cosigner Signature (If Indicated): Date CC: Gilberto Rob MD PROTHROMBIN TIME W/INR Collected: 11/28/2017 Status: F Source: FAISAL 11:40 PM [facility] REPOSITORY TYPE CODE TESTS RESULT OUT OF RANGE REFERENCE UNITS LAB L300.4150 11.7-14.9 SECONDS High PROTIME 19.2 LAB L300.4200 Normal INR 1.6 Performed By: #### L300.3900 #### [facility] [address] [place], [address] CARDIOLOGY VISIT Observed: 11/26/2017 Status: F Source: FAISAL REPORT 10:14 AM [facility] REPOSITORY [facility] [address] [place] [address] OFFICE VISIT Date of Service: 11/22/17 MR#: [id number] Acct: [id number] Name: Keren Luis Rep #: [id number] : 1935 Provider: LILY Patel Age/Sex: 82/F Location: [facility] Status: Signed HPI HPI Details: Keren Luis, is a 82 F who presents to the office today for a cardiovascular outpatient follow-up. She has history of coronary artery disease status post bypass with Dr. Núñez in December 2016 with a ANGULO to the LAD and reverse SVG to obtuse marginal branch, status post left atrial appendage with a 35 mm Atricure clip, mitral valve insufficiency status post mitral valve repair in December 2016 with a 27 mm [place] epic bioprosthesis, dilated cardiomyopathy, hypertension, hyperlipidemia, status post AICD defibrillator, SVT in which she follows with Dr. Hernandez, breast cancer status post chemotherapy,renal carcinoma status post nephrectomy, and chronic renal insufficiency stage III. Pt denies chest, arm, jaw, or neck discomfort. Her exercise tolerance is stable. Pt denies symptoms of palpitations, lightheadedness, dizziness, near syncopal or syncopal episodes. Pt denies claudication issues. Pt. denies PND, fever, chills, blood in urine, blood in stool, myalgia, or unexplainable fatigue. Her edema has improved, but is still present. She has an appointment on December [address] Rowe of nephrology. Intake Intake Visit Reasons: 1-2 wk s/p [facility] Allergies erythromycin base Adverse Reaction (Verified 11/05/17 13:40) Vomiting meperidine [From Demerol] Adverse Reaction (Verified 11/05/17 13:40) Vomiting Medications Niacin 250 mg PO DAILY 12/23/16 [History Confirmed 11/05/17] Omeprazole [Prilosec] 20 mg PO DAILY 12/23/16 [History Confirmed 11/05/17] alprazolam 0.5 mg tablet 0.5 mg PO QHS tab 03/19/17 [History Confirmed 11/05/17] metoprolol tartrate 25 mg tablet 25 mg PO BID 03/19/17 [History Confirmed 11/05/17] warfarin 3 mg tablet 3 mg PO SUMOTU 03/19/17 [History Confirmed 11/05/17] Metformin HCl [Glucophage] 500 mg PO DAILY 03/31/17 [History Confirmed 11/05/17] Warfarin [Coumadin] 1.5 mg PO WETHFRSA 03/31/17 [History Confirmed 11/05/17] amiodarone 200 mg tablet 200 mg PO DAILY 90 Days #90 tab 04/19/17 [History Confirmed 11/05/17] Aspirin E.C. [Ecotrin] 81 mg PO DAILY 11/05/17 [History Confirmed 11/05/17] C,E,Zinc,Copper 11/Upgpa8f/Lut [Ocuvite Adult 50 Plus Softgel] 1 tab PO DAILY 11/05/17 [History Confirmed 11/05/17] Calcium Carbonate/Vitamin D3 [Calcium 600-Vit D3 200 Tablet] 1 tab PO DAILY 11/05/17 [History Confirmed 11/05/17] Carboxymethylcellulose Sodium [Refresh Tears] 1 drp EACH EYE TID 11/05/17 [History Confirmed 11/05/17] Ferrous Sulfate [Iron] 325 mg PO DAILY 11/05/17 [History Confirmed 11/05/17] Magnesium Oxide 400 mg PO DAILY 11/05/17 [History Confirmed 11/05/17] Naproxen 500 mg PO BID PRN PRN 11/05/17 [History Confirmed 11/05/17] Bumetanide 1 mg PO BID #60 tab 11/08/17 [Rx] Metolazone [Zaroxolyn] 2.5 mg PO MoTh@1000 #30 tab 11/08/17 [Rx] PFSH Medical History Ventricular tachyarrhythmia (Chronic) Secondary pulmonary arterial hypertension (Chronic) Ischemic cardiomyopathy (Chronic) Atherosclerosis of coronary artery of wiyot heart without angina pectoris (Chronic) 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 of 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 (Chronic) Acute on chronic systolic CHF (congestive heart failure) (Chronic) Chronic kidney disease, stage 3 (Chronic) Type 2 diabetes mellitus (Chronic) History of breast cancer (Chronic) History of renal cell carcinoma (Chronic) Hypertension (Chronic) Surgical History H/O coronary artery bypass surgery (Acute) Presence of implantable cardioverter-defibrillator (ICD) (Chronic 05/10/09) Status post right nephrectomy (Chronic) Status post implantation of automatic cardioverter/defibrillator (AICD) (Chronic) History of left heart catheterization (Acute 12/25/16) History of mitral valve replacement (Chronic) History of partial mastectomy of left breast (Chronic 11/2003) History of total abdominal hysterectomy (Chronic) Hx of CABG (Chronic 12/2016) Hx of cholecystectomy (Chronic) Family History Brother CAD (coronary artery disease) Social History Smoking Status: Never smoker ROS Const Const: Negative for fatigue, weakness, body ache, fever(s) or chills ENT ENT: Negative for dizziness Cardio Chest Pain: No Palpitations: No Edema: Bilateral Muscle aches with walking: None Resp Respiratory: Positive for SOB orthopnea\SOB lying down; negative for SOB with activity, SOB at rest or paroxysmal nocturnal dyspnea GI GI: Negative nausea, black,tarry stools, bright, red blood in stools or vomiting blood/hematemesis : Negative for hematuria or frequent nighttime urination/ nocturia Musc Musc: Negative for muscle aches/ myalgia Skin Skin: Negative non-healing lesions or rash Neuro Neuro: Negative for weakness, dizziness, lightheadedness, near syncope, syncope or orthostatic symptoms Endo Endo: Negative for fatigue Allergy Allergy/Immunology: Negative for rash Cardiology Exam Const Appearance: cooperative, healthy appearing and no acute distress Nutritional Appearance: well nourished Orientation: alert, oriented x3 and oriented to person Head Head: normal to inspection, atraumatic and normocephalic Nose: external nose normal Face and Sinus: face symmetric Mouth: oral mucosae normal Eyes General: appearance normal, both eyes and all related structures Eyelids: eyelids normal Conjunctivae: conjunctivae normal Pupils: PERRL and normal by confrontation EOM: EOM intact bilaterally Neck Neck: normal visual inspection and full ROM Carotids: normal carotid upstroke Chest Chest inspection: normal inspection of the chest Auscultation: Bilateral: Clear to Auscultation Cardio Palpation: normal PMI Rate: regular rate Rhythm: regular rhythm Heart sounds: S1 normal, S2 normal and murmur; negative rub or gallop Murmur: Grade 2/6 and LLSB GI GI: normal to inspection, no hepatosplenomegaly and bowel sounds present Neuro General: alert, oriented x3, awake, CN's II-XI intact bilaterally and moves all extremities Skin Skin: no rashes or lesions noted Extremities Pulses: Normal: Right Posterior Tibial Pulse, Left Posterior Tibial Pulse, Right Radial Pulse, Left Radial Pulse Lower Extremity Edema: +1: Bilateral (Bilateral Eduardo wraps) Psych Psychological: normal affect Supplemental Info Heart catheterization in December 2016 prior to bypass and mitral valve replacement showed a very severe ostial LAD lesion, chronically occluded circumflex artery, obtuse marginal branch filling via left to left collaterals, and the right coronary artery was large giving off multiple PDA and multiple PL branches which were free of significant disease. The LAD was an unusual configuration with very early application into 3 very thin small branches but were free of significant disease. Stress test from September 2016 demonstrated myocardial perfusion changes appearing compatible with stress-induced myocardial ischemia and reported an ejection fraction of 40%. Echocardiogram from October 2017 showed estimated ejection fraction of 20 25%, severe global hypokinesis of left ventricle, moderately dilated right ventricle, mild to moderate global right ventricular systolic dysfunction, severely enlarged left atrium, bioprosthetic mitral valve, moderate bioprosthetic induce mitral valve stenosis, peak transmitral valve gradient of 13 mmHg, mean transmitral valve gradient of 7 mmHg, moderately severe tricuspid valve insufficiency, RVSP of 25 mmHg, but probably underestimated given concentric nature of TR, and when compared appears echocardiogram in September 2016 LV function has remained the same, but patient now has moderate to severe TR. Assessment AND Plan 1. Atherosclerosis of wiyot coronary artery of wiyot heart without angina pectoris I25.10 S/P bypass surgery in [address] 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 marginal branch Plan - James Patel, LINDAC Patient denies any chest pain, arm pain, jaw pain, neck pain, shortness of breath, or fatigue suggestive of angina at this time. We will continue to monitor this. We will not make any medication regimen changes and will continue risk factor modification. Orders Orders: 2. H/O coronary artery bypass surgery Z95.1 S/P bypass surgery in [address] 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 marginal branch LIGIA Bradshaw She will continue current treatment plan as outlined above. Orders Orders: 3. Ischemic cardiomyopathy I25.5 LIGIA Bradshaw Her echocardiogram in October 2017 showed ejection fraction of 20 25%. She acknowledges improved shortness of breath and lower extremity edema after adjustment of medications which included stopping Lasix and adding Bumex and metolazone. She will undergo a nuclear stress test to evaluate for any coronary artery disease related changes precipitating fluid volume overload state. This will be done in the form of a chemical nuclear stress test due to her history of ventricular arrhythmias. Orders Orders: 4. Status post implantation of automatic cardioverter/defibrillator (AICD) Z95.810 LIGIA Bradshaw She denies any discharge. She has been away from her remote box for the last month. Her amiodarone was temporary adjusted in the past due to episodes of ATP therapy. Further this will be further evaluated at her appointment in December 2017. She will continue with current antiarrhythmic medication. 5. Ventricular tachyarrhythmia I47.2 LIGIA Bradshaw Her amiodarone was temporally increased in the past for this. She will continue with amiodarone therapy and pacemaker clinic follow-up. 6. History of mitral valve repair Z98.890 LIGIA Bradshaw Her most recent echocardiogram showed moderate bioprosthetic- induced mitral valve stenosis, peak transmitral valve gradient 13 mmHg, and mean transmitral valve gradient of 7 mmHg. She will continue current medications and we will continue monitor this through history, exam, and repeat echocardiogram. 7. Essential hypertension I10 LIGIA Bradshaw Patient's blood pressure is well-controlled today in the office. We will continue to monitor this. We will not make any medication regimen changes. 8. Chronic kidney disease, stage 3 N18.3 LIGIA Bradshaw Patient is status post previous nephrectomy. After last hospitalization it was asked if she could be seen for sooner appointment with Dr. Zane, apprentice instrument technician. Their office will be contacted to see if any sooner appointment is available. She will also undergo a BMP evaluation and possibly 2 weeks to evaluate kidney function and potassium level. Her most recent potassium level was low normal, which she attributes to poor diet. Her kidney function remains elevated, though stable. Orders Orders: Plan Detail Additional Comments - LIGIA Billy Discussed the above patient with Dr. Conn, he agrees with the plan of care. Thank you for allowing us to participate in the patients plan of care, if you have any questions please do not hesitate to call. This note was generated using a voice recognition system and there may be incorrect words, spelling or punctuation that were not noted when reviewing the office note prior to saving. Follow Up 6 Months (DJN) Coding Level of Care Code Off vis,est,level 3 Diagnoses Atherosclerosis of wiyot coronary artery of wiyot heart without angina pectoris I25.10 Coronary Disease-Associated Artery/Lesion type: wiyot artery H/O coronary artery bypass surgery Z95.1 Ischemic cardiomyopathy I25.5 Status post implantation of automatic cardioverter/defibrillator (AICD) Z95.810 Ventricular tachyarrhythmia I47.2 History of mitral valve repair Z98.890 Essential hypertension I10 Hypertension type: essential hypertension Chronic kidney disease, stage 3 N18.3 Coding Level of Care Code Off vis,est,level 3 Diagnoses Atherosclerosis of wiyot coronary artery of wiyot heart without angina pectoris I25.10 Coronary Disease-Associated Artery/Lesion type: wiyot artery H/O coronary artery bypass surgery Z95.1 Ischemic cardiomyopathy I25.5 Status post implantation of automatic cardioverter/defibrillator (AICD) Z95.810 Ventricular tachyarrhythmia I47.2 History of mitral valve repair Z98.890 Essential hypertension I10 Hypertension type: essential hypertension Chronic kidney disease, stage 3 N18.3 11/22/17 1541 <Electronically signed by James STRONG> Date James MCKEONC 11/26/17 1014<Electronically signed by Salvador Conn MD> Cosigner Signature: Date (if applicable) Salvador Conn MD CC: Gilberto Rob MD PROTHROMBIN TIME W/INR Collected: 11/22/2017 Status: F Source: FAISAL 2:53 PM [facility] REPOSITORY TYPE CODE TESTS RESULT OUT OF RANGE REFERENCE UNITS LAB L300.4150 11.7-14.9 SECONDS High PROTIME 20.0 LAB L300.4200 Normal INR 1.7 Performed By: #### L300.3900 #### [facility] [address] [place], [address] PROTIME W/INR Collected: 11/15/2017 Status: F Source: FAISAL FINGERSTICK 5:48 AM [facility] REPOSITORY TYPE CODE TESTS RESULT OUT OF REFERENCE UNITS RANGE LAB L9200.1001 11.9-14.4 SEC High PROTIME ISTAT 20.5 Result Comment: Reference Range 11.9 - 14.4 LAB L9200.2000 Normal INR ISTAT 1.80 Result Comment: Critical Value > 3.5 Performed By: #### L9200.0000 #### [facility] Point of Care [address] [place] [address] 12 LEAD ELECTROCARDIOGRAM Observed: 11/12/2017 Status: F Source: FAISAL 3:23 PM [facility] REPOSITORY [facility] Cardiovascular Services [address] [place] [address] 12 Lead EKG 11/05/17 1530 MR#: [id number] Acct: [id number] Name: KEREN LUIS Rep #: [id number] : 1935 82 From: Josue Richardson MD Attending Dr: Carmella Lara MD Status: DIS IN Ordering Dr: Lazara Garcia MD Date: 11/05/17 Location: [facility] Sex: F C Admitted: 11/05/17 Test Reason : Blood Pressure : / mmHG Vent. Rate : 073 BPM Atrial Rate : 073 BPM P-R Int : 192 ms QRS Dur : 116 ms QT Int : 454 ms P-R-T Axes : 072 -40 092 degrees QTc Int : 500 ms Normal sinus rhythm Left axis deviation Anterior infarct , age undetermined Abnormal ECG Confirmed by JUAN R TEJEDA, JOSUE ([id number]), editor book REANNA DOMINGUEZ ([id number]) on 11/12/2017 3:22:41 PM Referred By: AUGUST Confirmed By:JOSUE RICHARDSON MD 11/12/17 1522 Date Josue Richardson MD CC: Lazara Garcia MD; Carmella Lara MD; Gilberto Rob MD Signed PROTHROMBIN TIME W/INR Collected: 11/12/2017 Status: F Source: IONE 6:10 AM [facility] REPOSITORY Order Comment: ROOM 166 TYPE CODE TESTS RESULT OUT OF RANGE REFERENCE UNITS LAB L300.4150 11.7-14.9 SECONDS High PROTIME 21.9 LAB L300.4200 Normal INR 1.9 Performed By: #### L300.3900 #### [facility] [address] [place], [address] COMPREHENSIVE METABOLIC Collected: 11/12/2017 Status: F Source: [facility] 6:10 AM [facility] REPOSITORY Order Comment: ROOM 166 TYPE CODE TESTS RESULT OUT OF RANGE REFERENCE UNITS LAB L501.0100 74-106 mg/dL Normal GLU 85 Result Comment: Please note revised GLUCOSE reference range effective 2017. LAB L501.1000 7-18 mg/dL High BUN 33 LAB L501.1100 0.55-1.02 mg/dL High CREAT,SERUM 2.22 Result Comment: The validity of the calculated GFR AND GFRAA in patients over 70 years has not been determined. Clinical correlation is essential. LAB L501.1110 >60 mL/min Low EST GFR 23 Result Comment: Non- GFR Calc LAB L501.1115 >60 mL/min Low EST GFR - AA 27 Result Comment: GFR Calc LAB L501.1300 10-20 RATIO Normal BUN/CRE 14.9 LAB L501.1500 6.4-8.2 g/dL T Normal PROT 6.9 LAB L501.1800 3.2-5.0 g/dL Normal ALB 3.2 LAB L501.1950 2.2-4.2 g/dL Normal GLOB 3.7 LAB L501.2000 0.9-2.4 RATIO Normal A/G 0.9 LAB L501.2200 8.5-10.1 mg/dL CA Normal 8.6 LAB L501.4100 15-37 U/L Normal AST 21 LAB L501.4305 45-117 U/L High ALK P 133 LAB L501.4405 13-56 U/L Normal ALT 15 LAB L501.4600 0.20-1.00 mg/dL T Normal BILI 0.80 LAB L501.5300 136-145 mmol/L NA Normal 145 LAB L501.5600 3.5-5.1 mmol/L K Normal 3.5 LAB L501.5900 98-107 mmol/L CL Normal 102 LAB L501.6100 21.0-32.0 mmol/L Normal CO2 30.0 LAB L501.6200 5-15 Normal GAP 13 Performed By: #### L500.4050 #### [facility] [address] [place], [address] BNP,B-TYPE NATRIURETIC Collected: 11/12/2017 Status: F Source: FAISAL PEPTIDE 6:10 AM [facility] REPOSITORY Order Comment: ROOM 166 TYPE CODE TESTS RESULT OUT OF RANGE REFERENCE UNITS LAB L503.6620 0-100 pg/mL High B-TYPE 645.3 YESY PEP Performed By: #### L503.6620 #### [facility] [address] [place], [address] DISCHARGE SUMMARY Observed: 11/08/2017 Status: F Source: FAISAL 3:25 PM [facility] REPOSITORY [facility] Medical Records Department [address] [place] [address] Discharge Summary 11/08/17 1114 MR#: [id number] Acct: [id number] Name: KEREN LUIS Rep #: [id number] : 1935 82 From: Carmella Lara MD PCP: Gilberto Rob MD Status: ADM IN Y Location: [place] [address] Discharge Date and Diagnosis - Problem List Patient Problems: Active and Suspected Problems (Last Reviewed 11/05/17 @ 17:34 by Adarsh Gipson DO) CHF (congestive heart failure) (Acute) History of mitral valve repair (Acute) Date of Admission: 11/05/17 Date of Discharge: 11/08/17 - Primary Discharge Diagnosis Active and Suspected Problems (Last Reviewed 11/05/17 @ 17:34 by Adarsh Gipson DO) CHF (congestive heart failure) (Acute) History of mitral valve repair (Acute) - Secondary Discharge Diagnosis Chronic Problems (Last Reviewed 11/05/17 @ 17:34 by Adarsh Gipson DO) Ventricular tachyarrhythmia (Chronic) Presence of implantable cardioverter-defibrillator (ICD) (Chronic 05/10/09) [employer] 05/10/2009 Secondary pulmonary arterial hypertension (Chronic) Ischemic cardiomyopathy (Chronic) Atherosclerosis of coronary artery of wiyot heart without angina pectoris (Chronic) S/P bypass surgery in [address] 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 She also has a history of CKD and renal carcinoma status post nephrectomy. She was admitted via the ED with complaint of bilateral lower extremity swelling which was getting worse. She also had worsening shortness of breath. Chest x-ray done was unremarkable. BNP was 694. Patient was admitted and managed for acute systolic CHF exacerbation. Her Lasix was DC'd and she was started on Bumex drip on account of her CKD. Echo done during this admission showed moderate dilated left ventricle with EF of 20-25% and severe hypokinesis of the left ventricle; also had moderately dilated right ventricle with valve stenosis with bioprosthetic mitral valve. RVSP estimated to be about 25 mmHg. Moderate to severe TR and AICD in place. Patient was diuresed successfully on the Bumex drip and was negative balance of about 6.3 L at time of discharge. Her weight went down by about 15 pounds during this admission. Cardiology deferred on further investigation during this admission as patient improved with diuresis. Patient remained stable, and she was discharged to a long term on p.o. bumetanide 1 mg daily and she was also started on p.o. metolazone to take 2.5 mg every Sunday and . 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 Patient seen and examined prior to discharge. She had no complaints and felt well. Lower extremity swelling had come down with application of Eduardo wraps. She denied any fever or chills, and cough or chest pain, any shortness of breath, any abdominal pain, diarrhea vomiting. Review of systems is otherwise negative. Medications reviewed and reconciled. o/e: Vital Signs Height 5 ft 5 in Weight: 214 lb 11.684 oz Weight in Pounds 214.7 lbs Pulse Ox 95 General: Alert, Oriented x3, Cooperative, No apparent distress HEENT: Atraumatic, PERRLA, EOMI, Normocephalic Oral: Moist Mucosa Neck: Supple, No JVD, Negative Carotid Bruits Lungs: Clear to auscultation, Normal air movement, No rhonchi, No wheeze, No rales Cardiovascular: Regular rate, Regular Rhythm, Normal S1, Normal S2, No murmurs Abdomen: Bowel Sounds Present, Soft, Non Tender, Non-Distended, No Hepato-splenomegaly Extremities: No clubbing, No cyanosis, - - bilateral LE pitting pedal edema up to thighs, it is improving. LEs in EDUARDO wraps Skin: No rashes, No breakdown Musculoskeletal: No Tenderness to Palpation of Joints or Extremities Lymphatic: No Cervical, Supraclavicular, or Inguinal Adenopathy Neurological: Cranial nerves II-XII grossly intact, Neuro grossly intact, Motor Exam 5/5 strength throughout Psych/Mental Status: Normal Affect, Alert and oriented to time, place, person, mood and affect [] Plan as stated above. Discharge Diet: 2000 mg Sodium Diet Call your doctor if you observe: Shortness of breath, Dizziness, Swelling in the ankles, Chest pain Home Medications: Medications to take at Discharge Niacin 250 mg PO DAILY 12/23/16 Omeprazole [Prilosec] 20 mg PO DAILY 12/23/16 alprazolam 0.5 mg tablet 0.5 mg PO QHS tab 03/19/17 metoprolol tartrate 25 mg tablet 25 mg PO BID 03/19/17 warfarin 3 mg tablet 3 mg PO SUMOTU 03/19/17 Metformin HCl [Glucophage] 500 mg PO DAILY 03/31/17 Warfarin [Coumadin] 1.5 mg PO WETHFRSA 03/31/17 amiodarone 200 mg tablet 200 mg PO DAILY 90 Days #90 tab 04/19/17 Aspirin E.C. [Ecotrin] 81 mg PO DAILY 11/05/17 C,E,Zinc,Copper 11/Vmsei5s/Lut [Ocuvite Adult 50 Plus Softgel] 1 tablet PO DAILY 11/05/17 Calcium Carbonate/Vitamin D3 [Calcium 600-Vit D3 200 Tablet] 1 tab PO DAILY 11/05/17 Carboxymethylcellulose Sodium [Refresh Tears] 1 drop EACH EYE TID 11/05/17 Ferrous Sulfate [Iron] 325 mg PO DAILY 11/05/17 Magnesium Oxide 400 mg PO DAILY 11/05/17 Naproxen 500 mg PO BID PRN PRN 11/05/17 Bumetanide 1 mg PO BID #60 tab 11/08/17 Metolazone [Zaroxolyn] 2.5 mg PO MoTh@1000 #30 tab 11/08/17 Following Prescrptions Were Given to Patient: Metolazone [Zaroxolyn] 2.5 mg PO MoTh@1000 #30 tab Bumetanide 1 mg PO BID #60 tab Primary Care Physician: Gilberto Rob MD [Primary Care Provider] - Please follow up with your Primary Care Physician in: one week Please Follow Up With: Salvador Conn MD When: 1-2 weeks Disposition: Retirement facility Minutes spent on discharge:: 40 Patient Condition:: Stable Medical Necessity - Tobacco Use Smoking Status: Never smoker Meaningful Use Info Meaningful Use Diagnoses (Choose all that apply): CHF - CHF EDUARDO/ARB ordered at discharge?: No Reason EDUARDO/ARB not ordered?: Worsening renal disease Documented LVEF (%): 25 Code Visit Inpatient E NAHUN M: [id number] Disch Hosp 11/08/17 1525 <Electronically signed by Carmella Lara MD> Date Carmella Lara MD Cosigner Signature (if applicable): Date CC: Carmella Lara MD; Gilberto Rob MD Signed BEDSIDE GLUCOSE Collected: 11/08/2017 Status: F Source: IONE 11:26 AM [facility] REPOSITORY TYPE CODE TESTS RESULT OUT OF REFERENCE UNITS RANGE LAB L501.080 70-110 mg/dL High BEDSIDE GLU 153 Result Comment: MANAGEMENT OF PATIENT CARE PER NURSING PROTOCOL Performed By: #### L501.080 #### [facility] Point of Care [address] [facility] [place] [address] TRANSFER TO [facility] Observed: 11/08/2017 Status: F Source: [facility] 11:14 AM [facility] REPOSITORY [facility] Medical Records Department [address] [place] [address] Transfer to [facility] MR#: [id number] Acct: [id number] Name: TOBYKEREN E Rep #: [id number] : 1935 82 From: Carmella Lara MD PCP: Gilberto Rob MD Status: ADM IN KEREN LUIS (Patient) (Health Ins. Claim No.) (Day of Discharge to Facility) Certification of patient admission REQUIRED AT TIME OF ADMISSION. I CERTIFY THAT POST-HOSPITAL ECF SERVICES ARE REQUIRED TO BE GIVEN ON AN IN-PATIENT BASIS BECAUSE OF THE ABOVE NAMED PATIENT'S NEED FOR [facility] CARE ON A CONTINUING BASIS FOR THE CONDITION(S) FOR WHICH HE/SHE WAS RECEIVING IN-PATIENT HOSPITAL SERVICES PRIOR TO HIS/HER TRANSFER TO THE [facility]. 11/08/17 1114 <Electronically signed by Carmella Lara MD> Date Carmella Lara MD - Diet 11/05/17 17:29 Diet: Cardiac/Low Cholesterol Food consistency:: Regular Liquid Consistency:: Regular/Thin - Routine Orders/Code Status Enema Type: Fleetz Enema Frequency: Daily PRN Suppository Type: Dulcolax 10mg Suppository Frequency: Daily PRN O2 Frequency: PRN Keep PO Greater than or Equal to (%): 92 Routine Lab Work: INR Code Status: DNRCC-A - Therapies Weight Bearing: Weight bearing as tolerated Physical Therapy: Eval and Treat Occupational Therapy: Eval and Treat - Allergies/Procedures Done in Hospital Allergies/Adverse Reactions: Allergies erythromycin base Adverse Reaction (Verified 11/05/17 13:40) Vomiting meperidine [From Demerol] Adverse Reaction (Verified 11/05/17 13:40) Vomiting Procedures: None - Type of Care/Length of Stay Estimated LOS: More Than 30 Days Type of Care Needed: Skilled Rehab Potential: Good Prognosis: Good - Additional Orders/Day of Discharge H AND P will serve as current which was dated: 11/05/17 Day of Discharge: 11/08/17 - Dietary and Speech Recommendations Dietitian Recommendations/Changes: Suggest diet change to 1800 shena, carbohydrate-controlled, cardiac/low sodium, 60 gm protein with 1500 ml FR. Continue 120 ml glucerna shake TID on medpass if PO compromised at meals. - Follow Up Care Primary Care Physician: Gilberto Rob MD [Primary Care Provider] - Please follow up with your Primary Care Physician in: one week Please Follow Up With: Salvador Conn MD When: 1-2 weeks Code Visit Inpatient E AND M: [id number] Disch Hosp 11/08/17 1114 <Electronically signed by Carmella Lara MD> Date Carmella Lara MD CC: Salvador Conn MD; Gilberto Rob MD Signed BEDSIDE GLUCOSE Collected: 11/08/2017 Status: F Source: FAISAL 6:51 AM [facility] REPOSITORY TYPE CODE TESTS RESULT OUT OF RANGE REFERENCE UNITS LAB L501.080 70-110 mg/dL Normal BEDSIDE GLU 101 Result Comment: MANAGEMENT OF PATIENT CARE PER NURSING PROTOCOL Performed By: #### L501.080 #### [facility] Point of Care [address] [place] [address] BASIC METABOLIC Collected: 11/08/2017 Status: F Source: FAISAL PROFILE (BMP) 5:20 AM [facility] REPOSITORY TYPE CODE TESTS RESULT OUT OF RANGE REFERENCE UNITS LAB L501.0100 74-106 mg/dL Normal GLU 98 Result Comment: Please note revised GLUCOSE reference range effective 2017. LAB L501.1000 7-18 mg/dL High BUN 29 LAB L501.1100 0.55-1.02 mg/dL High CREAT,SERUM 2.20 Result Comment: The validity of the calculated GFR AND GFRAA in patients over 70 years has not been determined. Clinical correlation is essential. LAB L501.1110 >60 mL/min Low EST GFR 23 Result Comment: Non- GFR Calc LAB L501.1115 >60 mL/min Low EST GFR - AA 28 Result Comment: GFR Calc LAB L501.1255 ml/min Normal Estimated CRCL 17.74 LAB L501.1300 10-20 RATIO Normal BUN/CRE 13.2 LAB L501.2200 8.5-10 mg/dL Normal .1 CA 8.6 LAB L501.5300 136-14 mmol/L Normal 5 NA 142 LAB L501.5600 3.5-5. mmol/L Normal 1 K 3.9 LAB L501.5900 98-107 mmol/L Normal CL 102 LAB L501.6100 21.0-3 mmol/L High 2.0 CO2 34.0 LAB L501.6200 5-15 Normal GAP 6 Performed By: #### L500.2500 #### [facility] [address] [place], [place], [id number] MAGNESIUM Collected: 11/08/2017 Status: F Source: FAISAL 5:20 AM [facility] REPOSITORY TYPE CODE TESTS RESULT OUT OF RANGE REFERENCE UNITS LAB L501.5200 1.6-2.6 mg/dL High MG 2.7 Performed By: #### L501.5200 #### [facility] [place], [address] CBC W/DIFF, AUTOMATED Collected: 11/08/2017 Status: F Source: FAISAL 5:20 AM [facility] REPOSITORY TYPE CODE TESTS RESULT OUT OF RANGE REFERENCE UNITS LAB L100.1000 4.4-11.0 K/mm3 Normal WBC 5.8 LAB L100.1200 4.2-5.4 M/mm3 Normal RBC 4.44 LAB L100.1300 12.0-15.0 g/dl Low HGB 10.0 LAB L100.1400 37-47 % Low HCT 35.6 LAB L100.1500 81-99 fL Low MCV 80.2 LAB L100.1600 27.0-32.0 pg Low MCH 22.5 LAB L100.1700 32-36 g/gl Low MCHC 28.1 LAB L100.1810 11.6-14.6 % High RDW CV 22.0 LAB L100.1820 35.1-43.9 fl High RDW SD 63.6 LAB L100.1900 150-450 K/mm3 Low PLT 146 LAB L100.2000 6.2-12.0 fl Normal MPV 9.2 LAB L100.2100 47-70 % High NEUT% 72.8 LAB L100.2200 19-41 % Low LY% 13.9 LAB L100.2300 0-10 % High MONO% 11.3 LAB L100.2400 0-5 % Normal EO% 1.5 LAB L100.2500 0-1 % Normal BASO% 0.3 LAB L100.2550 0.0-0.9 % Normal IM GRAN % 0.200 Result Comment: IG% - Immature Granulocytes (promyelocytes, myelocytes and metamyelocytes) > 1% indicates that a LEFT SHIFT is Present. LAB L100.2620 2.0-7.7 X10 3/uL Absolute Neut Normal 4.2 LAB L100.2720 0.83-4.51 X10 3/ul Low Absolute Lymph 0.81 LAB L100.4500 SMEAR COMMENT Normal SCAN LAB L100.7300 ANISO Normal 1+ LAB L100.7500 POLYCHROMASIA Normal 1+ LAB L100.7600 HYPOCHROMASIA Normal 1+ LAB L100.7700 MICROCYTES Normal 1+ Performed By: #### L100.0100 #### [facility] [address] [place], [address] BEDSIDE GLUCOSE Collected: 11/07/2017 Status: F Source: FAISAL 9:35 PM [facility] REPOSITORY TYPE CODE TESTS RESULT OUT OF REFERENCE UNITS RANGE LAB L501.080 70-110 mg/dL High BEDSIDE GLU 149 Result Comment: MANAGEMENT OF PATIENT CARE PER NURSING PROTOCOL Performed By: #### L501.080 #### [facility] Point of Care [address] [place] [address] BEDSIDE GLUCOSE Collected: 11/07/2017 Status: F Source: FAISAL 4:22 PM [facility] REPOSITORY TYPE CODE TESTS RESULT OUT OF RANGE REFERENCE UNITS LAB L501.080 70-110 mg/dL Normal BEDSIDE GLU 101 Result Comment: MANAGEMENT OF PATIENT CARE PER NURSING PROTOCOL Performed By: #### L501.080 #### [facility] Point of Care [address] [place] [address] BEDSIDE GLUCOSE Collected: 11/07/2017 Status: F Source: FAISAL 11:27 AM [facility] REPOSITORY TYPE CODE TESTS RESULT OUT OF REFERENCE UNITS RANGE LAB L501.080 70-110 mg/dL High BEDSIDE GLU 147 Result Comment: MANAGEMENT OF PATIENT CARE PER NURSING PROTOCOL Performed By: #### L501.080 #### [facility] Point of Care [address] [place] [address] BASIC METABOLIC Collected: 11/07/2017 Status: F Source: FAISAL PROFILE (BMP) 7:50 AM [facility] REPOSITORY TYPE CODE TESTS RESULT OUT OF RANGE REFERENCE UNITS LAB L501.0100 74-106 mg/dL Normal GLU 92 Result Comment: Please note revised GLUCOSE reference range effective 2017. LAB L501.1000 7-18 mg/dL High BUN 32 LAB L501.1100 0.55-1.02 mg/dL High CREAT,SERUM 2.27 Result Comment: The validity of the calculated GFR AND GFRAA in patients over 70 years has not been determined. Clinical correlation is essential. LAB L501.1110 >60 mL/min Low EST GFR 22 Result Comment: Non- GFR Calc LAB L501.1115 >60 mL/min Low EST GFR - AA 27 Result Comment: GFR Calc LAB L501.1255 ml/min Normal Estimated CRCL 17.19 LAB L501.1300 10-20 RATIO Normal BUN/CRE 14.1 LAB L501.2200 8.5-10 mg/dL Low .1 CA 8.3 LAB L501.5300 136-14 mmol/L Normal 5 NA 142 LAB L501.5600 3.5-5. mmol/L Normal 1 K 3.7 LAB L501.5900 98-107 mmol/L Normal CL 103 LAB L501.6100 21.0-3 mmol/L High 2.0 CO2 36.0 LAB L501.6200 5-15 Low GAP 3 Performed By: #### L500.2500 #### [facility] [address] [place], [place], [address] CBC W/DIFF, AUTOMATED Collected: 11/07/2017 Status: F Source: IONE 7:50 AM [facility] REPOSITORY TYPE CODE TESTS RESULT OUT OF RANGE REFERENCE UNITS LAB L100.1000 4.4-11.0 K/mm3 Normal WBC 4.5 LAB L100.1200 4.2-5.4 M/mm3 Low RBC 4.18 LAB L100.1300 12.0-15.0 g/dl Low HGB 9.4 LAB L100.1400 37-47 % Low HCT 33.5 LAB L100.1500 81-99 fL Low MCV 80.1 LAB L100.1600 27.0-32.0 pg Low MCH 22.5 LAB L100.1700 32-36 g/gl Low MCHC 28.1 LAB L100.1810 11.6-14.6 % High RDW CV 22.2 LAB L100.1820 35.1-43.9 fl High RDW SD 63.9 LAB L100.1900 150-450 K/mm3 Low PLT 145 LAB L100.2000 6.2-12.0 fl Normal MPV 9.1 LAB L100.2100 47-70 % Normal NEUT% 69.6 LAB L100.2200 19-41 % Low LY% 17.3 LAB L100.2300 0-10 % High MONO% 11.1 LAB L100.2400 0-5 % Normal EO% 1.6 LAB L100.2500 0-1 % Normal BASO% 0.2 LAB L100.2550 0.0-0.9 % Normal IM GRAN % 0.200 Result Comment: IG% - Immature Granulocytes (promyelocytes, myelocytes and metamyelocytes) > 1% indicates that a LEFT SHIFT is Present. LAB L100.2620 2.0-7.7 X10 3/uL Normal Absolute Neut 3.1 LAB L100.2720 0.83-4.51 X10 3/ul Low Absolute Lymph 0.78 LAB L100.4500 Normal SMEAR COMMENT COMMENT Result Comment: SLIDE SCANNED - 1+ ANISO. Performed By: #### L100.0100 #### [facility] [address] [facility] [place], [address] PROTHROMBIN TIME W/INR Collected: 11/07/2017 Status: F Source: FAISAL 7:50 AM [facility] REPOSITORY TYPE CODE TESTS RESULT OUT OF RANGE REFERENCE UNITS LAB L300.4150 11.7-14.9 SECONDS High PROTIME 25.9 LAB L300.4200 Normal INR 2.4 Performed By: #### L300.3900 #### [facility] [address] [facility] [place], [address] BEDSIDE GLUCOSE Collected: 11/07/2017 Status: F Source: FAISAL 7:02 AM [facility] REPOSITORY TYPE CODE TESTS RESULT OUT OF RANGE REFERENCE UNITS LAB L501.080 70-110 mg/dL Normal BEDSIDE GLU 101 Result Comment: MANAGEMENT OF PATIENT CARE PER NURSING PROTOCOL Performed By: #### L501.080 #### [facility] Point of Care [address] [facility] [place] [address] BEDSIDE GLUCOSE Collected: 11/06/2017 Status: F Source: FAISAL 9:34 PM [facility] REPOSITORY TYPE CODE TESTS RESULT OUT OF REFERENCE UNITS RANGE LAB L501.080 70-110 mg/dL High BEDSIDE GLU 144 Result Comment: MANAGEMENT OF PATIENT CARE PER NURSING PROTOCOL Performed By: #### L501.080 #### [facility] Point of Care [address] [place] [address] BEDSIDE GLUCOSE Collected: 11/06/2017 Status: F Source: IONE 4:58 PM [facility] REPOSITORY TYPE CODE TESTS RESULT OUT OF REFERENCE UNITS RANGE LAB L501.080 70-110 mg/dL High BEDSIDE GLU 112 Result Comment: MANAGEMENT OF PATIENT CARE PER NURSING PROTOCOL Performed By: #### L501.080 #### [facility] Point of Care [address] [place] [address] ECHOCARDIOGRAM COMPLETE Observed: 11/06/2017 Status: F Source: IONE 4:51 PM [facility] REPOSITORY [facility] Cardiovascular Services [address] [place] [address] Echo Complete 11/06/17 0854 MR#: [id number] Acct: [id number] Name: KEREN LUIS Rep #: [id number] : 1935 82 From: Salvador Conn MD Attending Dr: Carmella Lara MD Status: ADM IN Ordering Dr: Adarsh Gipson DO Date: 11/06/17 Location: PCU Sex: F C Admitted: 11/05/17 Reason For Study: CHF Procedure This was a 2D Doppler, Color Flow transthoracic echocardiogram. Exam performed portable in patient room. Left Ventricle Moderately dilated left ventricle. The estimated ejection fraction is 20-25 %. Paced septal motion. There is severe global hypokinesis of the left ventricle. Right Ventricle Moderately dilated right ventricle. ICD or pacer leads identified within the right ventricle. Mild to moderate global right ventricular systolic dysfunction. Atria The left atrium is severely enlarged. Mitral Valve Moderate mitral valve stenosis. Peak transmitral valve gradient 13 mmHg. Mean transmitral valve gradient 7 mmHg. Bioprosthetic mitral valve. Tricuspid Valve Normal tricuspid valve. Moderately severe (3+) eccentric tricuspid valve insufficiency. Right ventricular systolic pressure estimated to be 25 mmHg. Aortic Valve Trisinus/trileaflet aortic valve. Pulmonic Valve Normal pulmonic valve. Great Vessels Normal aortic root. Normal arch. The inferior vena cava is dilated. Inferior vena cava collapse with sniff. Pericardium/Pleural No pericardial effusion. MMode/2D Measurements AND Calculations LVIDd: 5.0 cm IVSd: 1.0 cm LVOT diam: 2.1 cm LVIDs: 4.2 cm LVPWd: 1.1 cm LVOT area: 3.3 cm2 RVDd: 4.3 cm FS: 15.2 % Ao root diam: 3.4 cm LAV(MOD-sp4): 74.7 ml EDV(MOD-sp4): 93.8 ml LA dimension: 4.9 cm ESV(MOD-sp4): 61.4 ml EF(MOD-sp4): 34.5 % EDV(MOD-sp2): 97.8 ml SV(MOD-sp4): 32.4 ml SV(MOD-sp2): 41.1 ml EF(MOD-sp2): 42.0 % LA A4 area: 23.6 cm2 RA A4 area: 18.6 cm2 Doppler Measurements AND Calculations MV V2 max: 181.4 cm/sec Ao V2 max: 157.9 cm/sec LV V1 max: 105.3 cm/sec MV max P.3 mmHg Ao max P.0 mmHg LV V1 max P.4 mmHg MV V2 mean: 130.4 cm/sec Ao V2 mean: 112.9 cm/sec LV V1 mean P.1 mmHg MV mean P.4 mmHg Ao mean P.6 mmHg LV V1 mean: 66.7 cm/sec MV V2 VTI: 45.2 cm Ao V2 VTI: 28.4 cm LV V1 VTI: 18.7 cm MVA(VTI): 1.4 cm2 NANDO(I,D): 2.2 cm2 NANDO(V,D): 2.2 cm2 SV(LVOT): 62.0 ml PA V2 max: 87.5 cm/sec TR max gwendolyn: 224.5 cm/sec TR max P.2 mmHg Interpretation Summary The estimated ejection fraction is 20-25 %. There is severe global hypokinesis of the left ventricle. Moderately dilated right ventricle. Mild to moderate global right ventricular systolic dysfunction. The left atrium is severely enlarged. Bioprosthetic mitral valve. Moderate bioprosthetic induced mitral valve stenosis. Peak transmitral valve gradient 13 mmHg. Mean transmitral valve gradient 7 mmHg. Moderately severe (3+) eccentric tricuspid valve insufficiency. Right ventricular systolic pressure estimated to be 25 mmHg, but probably underestimated given eccentric nature of TR. Compared to echo report dated 10/26/2016, LV function has remained the same, but pt now has moderate to severe TR. Ordering Physician: Adarsh Gipson Referring Physician: GILBERTO ROB Performed By: Mindi Kevin, FABIOLA, RVT 11/06/17 1650 Date Salvador Conn MD CC: Adarsh Gipson DO; Carmella Lara MD; Gilberto Rob MD Date Dictated: 11/06/1754 Date Transcribed: 11/06/171649 Air Chipper: Signed BEDSIDE GLUCOSE Collected: 11/06/2017 Status: F Source: FAISAL 12:27 PM [facility] REPOSITORY TYPE CODE TESTS RESULT OUT OF REFERENCE UNITS RANGE LAB L501.080 70-110 mg/dL High BEDSIDE GLU 118 Result Comment: MANAGEMENT OF PATIENT CARE PER NURSING PROTOCOL Performed By: #### L501.080 #### [facility] Point of Care [address] [facility] [place] [address] CONSULTATION Observed: 11/06/2017 Status: F Source: IONE 10:55 AM [facility] REPOSITORY [facility] Medical Records Department [address] [place] [address] Consultation 11/06/17 1042 MR#: [id number] Acct: [id number] Name: KEREN LUIS Rep #: [id number] : 1935 82 From: Salvador Conn MD PCP: Gilberto Rob MD Status: ADM IN Location: [place] [address] Problem List (1) History of mitral valve repair Status: Acute (2) CHF (congestive heart failure) Status: Acute Qualifiers: Heart failure type: unspecified Heart failure chronicity: acute Qualified Code(s): I50.9 - Heart failure, unspecified (3) Ventricular tachyarrhythmia Status: Chronic (4) H/O coronary artery bypass surgery Status: Acute Comment: S/P bypass surgery in [address] 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 marginal branch (5) Presence of implantable cardioverter-defibrillator (ICD) Status: Chronic Comment: [employer] 05/10/2009 (6) Secondary pulmonary arterial hypertension Status: Chronic (7) Ischemic cardiomyopathy Status: Chronic (8) Atherosclerosis of coronary artery of wiyot heart without angina pectoris Status: Chronic Qualifiers: Coronary Disease-Associated Artery/Lesion type: wiyot artery Qualified Code(s): I25.10 - Atherosclerotic heart disease of wiyot coronary artery without angina pectoris Comment: S/P bypass surgery in [address] 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 marginal branch Reason for Consult Date of Consultation: 11/06/17 Reason for Consultation: Coronary artery disease, status post bypass, status post left atrial appendage ligation, status post mitral valve repair in December 2016 with a #27 mm [employer] bioprosthesis, dilated cardiomyopathy, hypertension, hyperlipidemia, status post AICD placement. She also has a history of chronic renal insufficiency renal carcinoma status post nephrectomy. History of Present Illness: The patient is a 82 year old F with a history of hypertension, chronic renal insufficiency, status post nephrectomy after renal cancer, status post breast cancer, with a history of hypertension, hypercholesterolemia, coronary artery disease status post bypass surgery by Dr. Johnson in December 2016. At that time she received a ANGULO to the LAD and a saphenous vein graft to the obtuse marginal. In addition she underwent left atrial appendage ligation, and mitral valve repair with a #27 mm [employer] Olegario bioprosthetic valve. She has a known history of cardiomyopathy and is status post AICD placement. Patient had several aborted episodes of nonsustained ventricular tachycardia requiring ATP. Her creatinine is 2.0. She was seen in our office yesterday with progressively worsening shortness of breath, orthopnea, PND, abdominal fullness, and progressive lower extremity edema up to her thighs. The patient was admitted through the emergency room yesterday placed on IV Bumex drip and received metolazone 2.5 mg 1. Patient is diuresed quite nicely, and feels much better today. She still has some conversational dyspnea but is able to lay down flat. Her edema still present although improved over our visit yesterday. She is approximately -1900 cc out since admission. She is currently on a Bumex drip at 0.5 mg/h. On further history she denies any changes to her medications, is compliant with her medications, and denies any excessive fluid or salt intake. Repeat echo is pending to evaluate her LV function and mitral valve status. [] Past Medical History Allergies/Adverse Reactions: Allergies erythromycin base Adverse Reaction (Verified 11/05/17 13:40) Vomiting meperidine [From Demerol] Adverse Reaction (Verified 11/05/17 13:40) Vomiting Home Medications: Ambulatory Orders Medication Instructions Recorded Furosemide 40 mg PO DAILY 12/23/16 Niacin 250 mg PO DAILY 12/23/16 Omeprazole [Prilosec] 20 mg PO DAILY 12/23/16 Past Medical History (Chronic Problems): Chronic Problems (Last Reviewed 11/05/17 @ 17:34 by Adarsh Gipson DO) Ventricular tachyarrhythmia (Chronic) Presence of implantable cardioverter-defibrillator (ICD) (Chronic 05/10/09) [employer] 05/10/2009 Secondary pulmonary arterial hypertension (Chronic) Ischemic cardiomyopathy (Chronic) Atherosclerosis of coronary artery of wiyot heart without angina pectoris (Chronic) S/P bypass surgery in [address] 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) History of breast cancer (Chronic) History of renal cell carcinoma (Chronic) Hypertension (Chronic) Surgical History: appendectomy, cholecystectomy, tonsillectomy, - - hysterectomy, mastectomy, nephrectomy - *Family History Maternal Family History: Family History (Last Reviewed 11/05/17 @ 17:35 by Adarsh Gipson DO) Brother CAD (coronary artery disease) History Items: No pertinent history Paternal Family History: Family History (Last Reviewed 11/05/17 @ 17:35 by Adarsh Gipson DO) Brother CAD (coronary artery disease) History Items: No pertinent history Smoking Status: Never smoker Subjectve: Patient laying down flat, no acute distress. Objective: Vital Signs Temp Pulse Resp BP Pulse Ox 98.3 F 85 16 107/58 L 95 11/06/17 09:52 11/06/17 10:22 11/06/17 09:52 11/06/17 09:52 11/06/17 09:52 Oxygen Delivery Method Room Air Weight: 225 lb 8.526 oz Body Mass Index (BMI) 38.1 Intake and Output for Last 24 Hours Intake Total 186 / 186 256.9 / 256.9 Output Total 1390 / 1390 1025 / 1025 Balance -1204 / -1204 -768.1 / -768.1 General: Awake, Alert, Oriented x 3 HEENT: PERRL, EOMI, Sclera Non Icteric Neck: Supple, Good ROM, No Lymph Node Enlargement Lungs: Diminished Masood Bases, Rales - Masood Bases Cardiovascular: Regular Rhythm, Normal S1, Normal S2, No Murmurs, No Rubs, No Gallops Vascular: No Carotid Bruits, Normal Femoral Pulses, Normal Radial Pulses, Normal Dorsalis Pedal Pulse, Normal Posterior Tibial Pulses Abdomen: Bowel Sounds Present, Soft, Non Tender, No HSM, No Organomegaly Extremities: No Cyanosis, No Clubbing, No edema Neurological: No Focal Motor or Sensory Deficit 11/06/17 05:32: PT 28.8 H, INR 2.7 11/06/17 05:32: Sodium 144, Potassium 3.9, Chloride 105, Carbon Dioxide 30.0, Anion Gap 9, BUN 30 H, Creatinine 2.13 H, Est GFR (MDRD) Af Amer 29 L, Est GFR (MDRD) Non-Af 24 L, BUN/Creatinine Ratio 14.1, Glucose 87, Calcium 8.4 L Rhythm: EKG: ECHO: Stress Test: Cardiac Cath: PCI: CT Surgery: Holter monitor: EPS: PPM: CXR: Chest CT Scan: Assessment/Plan 1. Ischemic cardiomyopathy: The patient has had progressively worsening fluid retention over the last several weeks to months. She has never really felt better after her bypass surgery in December 2016. I recommended that she continue her IV Lasix drip to facilitate IV diuresis in the range between 1.5 and 2 L per 24 hours. By my estimation she has several more liters left before she reaches her dry weight. At that time we can then switch her to p.o. Bumex therapy and possibly metolazone on a weekly or biweekly basis. Given her chronic renal insufficiency, she may require a higher level of diuretic therapy. Would recommend holding her metoprolol at this time as well given her acute on chronic LV dysfunction. Of also recommend that she undergo a repeat echocardiogram to evaluate her LV function, mitral valvular pressures, and pulmonary pressures as well. Her chest x-ray and mild pulmonary vascular redistribution but no overt pleural effusions. Recommend continuing 1500 cc fluid restriction and Eduardo bandages on her legs to facilitate venous return. Once the patient has achieved her dry weight, we may consider either a noninvasive stress test to evaluate her bypass surgery or repeat catheterization. 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 In addition she would need to have her Coumadin held given her severe pulmonary hypertension and history of atrial fibrillation. Would also recommend continuing amiodarone therapy to avoid ventricular or atrial arrhythmias. 2. Hyperlipidemia: Unfortunately patient is unable to tolerate statins. Continue niacin. 3. Thank you very much for the opportunity to participate in the cardiac care of your patient. Consultation time between 10 and 10:30 AM. Code Visit Inpatient E AND M: 18774 Subs Hosp L2 11/06/17 1055 <Electronically signed by Salvador Conn MD> Date Salvador Conn MD Cosigner Signature (if applicable): Date CC: Salvador Conn MD; Gilberto Rob MD Signed BEDSIDE GLUCOSE Collected: 11/06/2017 Status: F Source: FAISAL 6:51 AM [facility] REPOSITORY TYPE CODE TESTS RESULT OUT OF RANGE REFERENCE UNITS LAB L501.080 70-110 mg/dL Normal BEDSIDE GLU 84 Result Comment: MANAGEMENT OF PATIENT CARE PER NURSING PROTOCOL Performed By: #### L501.080 #### [facility] Point of Care [address] [place], [place] [address] PROTHROMBIN TIME W/INR Collected: 11/06/2017 Status: F Source: FAISAL 5:32 AM [facility] REPOSITORY TYPE CODE TESTS RESULT OUT OF RANGE REFERENCE UNITS LAB L300.4150 11.7-14.9 SECONDS High PROTIME 28.8 LAB L300.4200 Normal INR 2.7 Performed By: #### L300.3900 #### [facility] [address] [place], [address] BASIC METABOLIC Collected: 11/06/2017 Status: F Source: FAISAL PROFILE (BMP) 5:32 AM [facility] REPOSITORY TYPE CODE TESTS RESULT OUT OF RANGE REFERENCE UNITS LAB L501.0100 74-106 mg/dL Normal GLU 87 Result Comment: Please note revised GLUCOSE reference range effective 2017. LAB L501.1000 7-18 mg/dL High BUN 30 LAB L501.1100 0.55-1.02 mg/dL High CREAT,SERUM 2.13 Result Comment: The validity of the calculated GFR AND GFRAA in patients over 70 years has not been determined. Clinical correlation is essential. LAB L501.1110 >60 mL/min Low EST GFR 24 Result Comment: Non- GFR Calc LAB L501.1115 >60 mL/min Low EST GFR - AA 29 Result Comment: GFR Calc LAB L501.1255 ml/min Normal Estimated CRCL 18.32 LAB L501.1300 10-20 RATIO Normal BUN/CRE 14.1 LAB L501.2200 8.5-10 mg/dL Low .1 CA 8.4 LAB L501.5300 136-14 mmol/L Normal 5 NA 144 LAB L501.5600 3.5-5. mmol/L Normal 1 K 3.9 LAB L501.5900 98-107 mmol/L Normal CL 105 LAB L501.6100 21.0-3 mmol/L Normal 2.0 CO2 30.0 LAB L501.6200 5-15 Normal GAP 9 Performed By: #### L500.2500 #### [facility] [address] [place], [address] EMERGENCY DEPARTMENT Observed: 11/05/2017 Status: F Source: FAISAL SUMMARY 11:27 PM [facility] REPOSITORY [facility] Medical Records Department [address] [place] [address] Emergency Department Summary 11/05/17 1542 MR#: [id number] Acct: [id number] Name: KEREN LUIS Rep #: [id number] : 1935 82 From: Lazara Garcia MD PCP: Gilberto Rob MD Status: ADM IN - ER Visit Summary Date of Service: 11/05/17 Chief Complaint: CHF History of Present Illness: The patient is a 82 F with CHF for the past several months. Patient states she has actually had problems since her heart surgery last December. She has been on Lasix without significant improvement. She now has edema not only in her legs but up into her abdomen is well. Patient was seen by Dr. Conn in the office today. He wishes to have the patient admitted for a Bumex drip and will need to have a nephrology consult as well. Patient does have a history of renal cell carcinoma and has had a right nephrectomy. Physical Examination: Vital signs are unremarkable. Pulse ox is listed in triage and 93% but she is satting 96% at time of my examination. Head and neck examination is unremarkable. Heart is regular rate and rhythm. Lung sounds are diminished at the bases. Abdomen is soft nontender, but is distended. Extremity examination reveals 3+ edema in the lower legs that is symmetric. I do not see significant erythema. Test Results: Chest x-ray shows no acute process and no evidence of pulmonary edema. EKG is sinus at 73 with no acute ischemia. CBC was normal white count with hemoglobin 9.8. Platelet count is 136,000. Chemistry studies reveal potassium of 5.6 with moderate hemolysis noted. BUN is 31 and creatinine is 2.23 which appears consistent with her baseline. INR is therapeutic at 2.4. Troponin is negative. BNP is 694. Emergency Department Course and Treatment: Per Dr. Conn's wishes, Bumex drip was started. Medrano catheter was placed to measure output. Hospitalist will be contacted for admission. Treatment Plan: [] Disposition: Admit Impression: CHF This note was generated with [employer] dictation software. It may contain incorrect words, spelling, and punctuation that were not noted in review of the chart prior to signing ED Disposition - Plan for ED Patient: Chief Complaint: Edema Referrals: Gilberto Rob MD [Primary Care Provider] - What to do if you have Problems For any increased pain, shortness of breath, bleeding, nausea or vomiting, chest pain, or any unexpected problems, contact your Primary Care Provider. Call [employer] [facility] ([phone]) or report to the closest Emergency Room. Call 911 if necessary. 11/05/17 1513 <Electronically signed by Lazara Garcia MD> Date Lazara Hameedigner Signature (If Indicated): Date CC: Gilberto Rob MD BEDSIDE GLUCOSE Collected: 11/05/2017 Status: F Source: IONE 9:50 PM [facility] REPOSITORY TYPE CODE TESTS RESULT OUT OF REFERENCE UNITS RANGE LAB L501.080 70-110 mg/dL High BEDSIDE GLU 133 Result Comment: MANAGEMENT OF PATIENT CARE PER NURSING PROTOCOL Performed By: #### L501.080 #### [facility] Point of Care [address] [facility] [place] [address] BEDSIDE GLUCOSE Collected: 11/05/2017 Status: F Source: IONE 6:38 PM [facility] REPOSITORY TYPE CODE TESTS RESULT OUT OF RANGE REFERENCE UNITS LAB L501.080 70-110 mg/dL Normal BEDSIDE GLU 84 Result Comment: MANAGEMENT OF PATIENT CARE PER NURSING PROTOCOL Performed By: #### L501.080 #### [facility] Point of Care [address] [facility] [place] [address] HISTORY AND PHYSICAL Observed: 11/05/2017 Status: F Source: IONE EXAM 5:41 PM [facility] REPOSITORY [facility] Medical Records Department [address] [place] [address] History and Physical 11/05/17 1732 MR#: [id number] Acct: [id number] Name: KEREN LUIS Rep #: [id number] : 1935 82 From: Adarsh Gipson DO PCP: Gilberto Rob MD Status: REG ER Y Location: ED Problem List (1) CHF (congestive heart failure) Status: Acute Qualifiers: Heart failure type: unspecified Heart failure chronicity: acute Qualified Code(s): I50.9 - Heart failure, unspecified History of Present Illness Date of Admission: 11/05/17 Chief Complaint: shortness of breath. orthopnea The patient is a 82 year old F who had a valve replaced in December and since then, has been short of breath. Patient has also been edematous as well. Patient has been noticing orthopnea. Patient saw Dr. Conn who directed patient to the emergency room. In the emergency room, patient had a chest x-ray that was unremarkable. A BNP of 694 Dr. Conn was contacted by the emergency room and a Bumex drip given the patient's chronic kidney disease. Patient is currently not on any oxygen at this time but does note that she has swelling in her lower extremities extending up into her hips. [] Past Medical History Past Medical History (Chronic Problems): Chronic Problems (Last Reviewed 11/05/17 @ 17:34 by Adarsh Gipson DO) Ventricular tachyarrhythmia (Chronic) Presence of implantable cardioverter-defibrillator (ICD) (Chronic 05/10/09) [employer] 05/10/2009 Secondary pulmonary arterial hypertension (Chronic) Ischemic cardiomyopathy (Chronic) Atherosclerosis of coronary artery of wiyot heart without angina pectoris (Chronic) S/P bypass surgery [place] [address] 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) use of 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 (Chronic) Acute on chronic systolic CHF (congestive heart failure) (Chronic) Chronic kidney disease, stage 3 (Chronic) Type 2 diabetes mellitus (Chronic) Status post right nephrectomy (Chronic) Status post implantation of automatic cardioverter/defibrillator (AICD) (Chronic) History of breast cancer (Chronic) History of renal cell carcinoma (Chronic) Hypertension (Chronic) Medical History: Medical History (Last Reviewed 11/05/17 @ 17:34 by Adarsh Gipson DO) Ventricular tachyarrhythmia (Chronic) I47.2 Secondary pulmonary arterial hypertension (Chronic) I27.21 Ischemic cardiomyopathy (Chronic) I25.5 Atherosclerosis of coronary artery of wiyot heart without angina pectoris (Chronic) I25.10 S/P bypass surgery [place] [address] 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 of 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 (Chronic) Z79.01 Acute on chronic systolic CHF (congestive heart failure) (Chronic) I50.23 Chronic kidney disease, stage 3 (Chronic) N18.3 Type 2 diabetes mellitus (Chronic) E11.9 History of breast cancer (Chronic) Z85.3 History of renal cell carcinoma (Chronic) Z85.528 Hypertension (Chronic) I10 Allergies erythromycin base Adverse Reaction (Verified 11/05/17 13:40) Vomiting meperidine [From Demerol] Adverse Reaction (Verified 11/05/17 13:40) Vomiting Home Medications: Ambulatory Orders Medication Instructions Recorded Furosemide 40 mg PO DAILY 12/23/16 Niacin 250 mg PO DAILY 12/23/16 Omeprazole [Prilosec] 20 mg PO DAILY 12/23/16 Surgical History: Surgical History (Last Reviewed 11/05/17 @ 17:34 by Adarsh Gipson DO) H/O coronary artery bypass surgery (Acute) Z95.1 S/P bypass [place] [address] 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 marginal branch Presence of implantable cardioverter-defibrillator (ICD) (Chronic) Onset Date: 05/10/09 Z95.810 [employer] 05/10/2009 Status post right nephrectomy (Chronic) Status post implantation of automatic cardioverter/defibrillator (AICD) (Chronic) Z95.810 History of left heart catheterization Onset Date: 12/25/16 Z98.890 History of mitral valve replacement Z95.2 Mitral Valve Replacement with a 27mm [employer] Olegario bioprosthesis @ [facility] by Dr. Núñez History of partial mastectomy of left breast Onset Date: 11/2003 Z98.890, Z90.12 History of total abdominal hysterectomy Z98.890, Z90.710 Hx of CABG Onset Date: 12/2016 Z95.1 x2 ANGULO to LAD, SVG-OM; W/LAE occlusion with 35-mm Atricure Clip Hx of cholecystectomy Z98.890, Z90.49 Surgical History: appendectomy, cholecystectomy, tonsillectomy, - - hysterectomy, mastectomy, nephrectomy Smoking Status: Never smoker - *Family History Maternal Family History: Family History (Last Reviewed 11/05/17 @ 17:35 by Adarsh Gipson DO) Brother CAD (coronary artery disease) History Items: No pertinent history Paternal Family History: Family History (Last Reviewed 11/05/17 @ 17:35 by Adarsh Gipson DO) Brother CAD (coronary artery disease) History Items: No pertinent history Review of Systems Constitutional: Denies: Anorexia, Chills, Fever Eyes: Denies: Blurred vision, Double vision HEENT: Denies: Head Aches, Sinus Congestion, Sinus Drainage Cardiovascular: Reports: Edema, Orthopnea. Denies: Chest Pain, Palpitations Respiratory: Reports: Shortness of Breath. Denies: Cough Gastrointestinal: Denies: Abdominal Pain, Nausea, Vomiting Genitourinary: Reports: - - Decreased urinary output. Denies: Dysuria Musculoskeletal: Denies: Joint Pain, Joint Tenderness Skin: Denies: Rash, Wounds Neurological: Denies: Numbness, Tingling, Focal weakness Psychiatric: Denies: Anxiety, Depression Hematologic/ Lymphatic: Denies: Easy Bruising, Easy Bleeding, Hx of blood clot Comment: All review of systems are negative except as mentioned in the history of present illness and the other review of systems. VTE Information - Inpt Only VTE Present on Admission: No VTE Pharm Prophylaxis ordered?: Yes Patient Problems: Active and Suspected Problems (Last Reviewed 11/05/17 @ 17:34 by Adarsh Gipson DO) CHF (congestive heart failure) (Acute) - Physical Exam General: Alert, Cooperative, No apparent distress HEENT: Atraumatic, Normocephalic Oral: Moist Mucosa Neck: No JVD, No Nodes, Thyroid Normal Size and Texture Lungs: Clear to auscultation, Normal air movement, No rhonchi, No wheeze Cardiovascular: Regular rate, Regular Rhythm, Normal S1, Normal S2, No murmurs Abdomen: Bowel Sounds Present, Soft, Non Tender, Non-Distended, No Hepato-splenomegaly Extremities: No Calf Tenderness, Edema - Taut edema extending in the entire lower extremities up into her buttocks. Skin: No rashes, No breakdown Musculoskeletal: No Tenderness to Palpation of Joints or Extremities, No Muscle Wasting Psych/Mental Status: Normal Affect, Appropriate Vital Signs Temp Pulse Resp BP Pulse Ox 36.6 C 78 20 H 123/73 H 93 11/05/17 14:56 11/05/17 14:56 11/05/17 14:56 11/05/17 14:56 11/05/17 14:56 Oxygen Delivery Method Room Air Weight: 104.7 kg Body Mass Index (BMI) 38.4 Laboratory Tests Past 24 Hrs WBC 6.0 RBC 4.43 Hgb 9.8 L Hct 35.6 L MCV 80.4 L MCH 22.1 L MCHC 27.5 L RDW 22.1 H RDW Differential 64.7 H WBC RBC Hgb Hct MCV Chest x-ray personally reviewed and showed no evidence of any pulmonary edema. AICD in place. Assessment/Plan All Active Problems (Last Reviewed 11/05/17 @ 17:34 by Adarsh Gipson DO) CHF (congestive heart failure) (Acute) H/O coronary artery bypass surgery (Acute) 1. Acute CHF exacerbation * I do not see any results of echocardiograms in our system to note this is preserved or reduced ejection fraction though I suspect the latter. * Patient has been started on a Bumex drip in the emergency room and will continue * Patient is on metoprolol tartrate * Given the patient's chronic kidney disease she is not a candidate for EDUARDO inhibitors or angiotensin receptor blockers * Check an echocardiogram * Consultation to cardiology * Should be noted that the patient's weight in September 26 was 98.4 kg and now it is 104.7 kg. 2. Chronic kidney disease stage IV * Creatinine appears to be at baseline * Monitor closely while the patient is on a bumetanide drip * Consider nephrology consultation if her creatinine starts to get worse 3. Diabetes mellitus type 2 * Discontinue metformin given the CHF * For now, patient just be on a sliding scale of NovoLog 4. DVT prophylaxis with heparin 5. Advanced directives: Patient wishes to be DNR Comfort Care arrest and no intubation. Patient is aware that these decisions can be changed at a later point if she so desires. Code Visit Inpatient E AND M: [id number] Init Hosp L3 11/05/17 0309 <Electronically signed by Adarsh Gipson DO> Date Adarsh Gipson DO Cosigner Signature: Date (if applicable) CC: Salvador Conn MD; Adarsh Gipson DO; Gilberto Rob MD Signed BASIC METABOLIC Collected: 11/05/2017 Status: F Source: IONE PROFILE (BMP) 3:40 PM [facility] REPOSITORY TYPE CODE TESTS RESULT OUT OF RANGE REFERENCE UNITS LAB L501.0100 74-106 mg/dL Normal GLU 106 Result Comment: Fasting Glucose result from 100 to 125 mg/dL suggests IMPAIRED HOMEOSTASIS per A.D.A. criteria. Please note revised GLUCOSE reference range effective 2017. LAB L501.1000 7-18 mg/dL High BUN 31 LAB L501.1100 0.55-1.02 mg/dL High CREAT,SERUM 2.23 Result Comment: The validity of the calculated GFR AND GFRAA in patients over 70 years has not been determined. Clinical correlation is essential. LAB L501.1110 >60 mL/min Low EST GFR 22 Result Comment: Non- GFR Calc LAB L501.1115 >60 mL/min Low EST GFR - AA 27 Result Comment: GFR Calc LAB L501.1255 ml/min Normal Estimated CRCL 17.50 LAB L501.1300 10-20 RATIO Normal BUN/CRE 13.9 LAB L501.2200 8.5-10 mg/dL Normal .1 CA 8.9 LAB L501.5300 136-14 mmol/L Normal 5 NA 143 LAB L501.5600 3.5-5. mmol/L High 1 K 5.6 Result Comment: Moderate Hemolysis, Result may be falsely increased. LAB L501.5900 98-107 mmol/L Normal CL 106 LAB L501.6100 21.0-32.0 mmol/L Normal CO2 29.0 LAB L501.6200 5-15 Normal 8 GAP Performed By: #### L500.2500, L501.4010 #### [facility] [address] [place], [place], [id number] TROPONIN-I Collected: 11/05/2017 Status: F Source: IONE 3:40 PM [facility] REPOSITORY TYPE CODE TESTS RESULT OUT OF RANGE REFERENCE UNITS LAB L501.4010 <0.045 ng/mL Normal < 0.015 TROPONIN-I Result Comment: TROPONIN-I EXPECTED VALUES <0.045 Negative 0.045 - 0.590 Consistent with Cardiac Damage > OR = 0.600 Critical Value Not every elevated troponin is indicative of IL. These values should be used with clinical judgement in examining the patient's clinical picture for diagnosis. To establish a diagnosis of IL versus myocardial injury, there must be a demonstrated rise and/or fall in the troponin values, in addition to ischemic symptoms, EKG changes, new regional wall motion abnormality, and/or angiographical evidence. PLEASE NOTE: REFERENCE RANGES EDITED 17 Performed By: #### L500.2500, L501.4010 #### [facility] [address] [place], [address] BNP,B-TYPE NATRIURETIC Collected: 11/05/2017 Status: F Source: IONE PEPTIDE 3:40 PM [facility] REPOSITORY TYPE CODE TESTS RESULT OUT OF RANGE REFERENCE UNITS LAB L503.6620 0-100 pg/mL High B-TYPE 694.3 YESY PEP Performed By: #### L503.6620 #### [facility] [address] [place], [address] CBC W/DIFF, AUTOMATED Collected: 11/05/2017 Status: F Source: IONE 3:40 PM [facility] REPOSITORY TYPE CODE TESTS RESULT OUT OF RANGE REFERENCE UNITS LAB L100.1000 4.4-11.0 K/mm3 Normal WBC 6.0 LAB L100.1200 4.2-5.4 M/mm3 Normal RBC 4.43 LAB L100.1300 12.0-15.0 g/dl Low HGB 9.8 LAB L100.1400 37-47 % Low HCT 35.6 LAB L100.1500 81-99 fL Low MCV 80.4 LAB L100.1600 27.0-32.0 pg Low MCH 22.1 LAB L100.1700 32-36 g/gl Low MCHC 27.5 LAB L100.1810 11.6-14.6 % High RDW CV 22.1 LAB L100.1820 35.1-43.9 fl High RDW SD 64.7 LAB L100.1900 150-450 K/mm3 Low PLT 136 LAB L100.2000 6.2-12.0 fl Normal MPV 9.1 LAB L100.2100 47-70 % High NEUT% 81.5 LAB L100.2200 19-41 % Low LY% 8.6 LAB L100.2300 0-10 % Normal MONO% 8.5 LAB L100.2400 0-5 % Normal EO% 1.0 LAB L100.2500 0-1 % Normal BASO% 0.2 LAB L100.2550 0.0-0.9 % Normal IM GRAN % 0.200 Result Comment: IG% - Immature Granulocytes (promyelocytes, myelocytes and metamyelocytes) > 1% indicates that a LEFT SHIFT is Present. LAB L100.2620 2.0-7.7 X10 3/uL Normal Absolute Neut 4.9 LAB L100.2720 0.83-4.51 X10 3/ul Low Absolute Lymph 0.52 LAB L100.4500 Normal SMEAR COMMENT SCANNED Result Comment: LYMPHOPENIA NOTED LAB L100.7300 Normal ANISO 1+ LAB L100.7700 Normal MICROCYTES RARE LAB L100.8200 Normal OVALOCYTE 1+ LAB L100.8400 Normal SCHISTOCYTES RARE Performed By: #### L100.0100 #### [facility] [address] [place], [address] PROTHROMBIN TIME W/INR Collected: 11/05/2017 Status: F Source: IONE 3:40 PM [facility] REPOSITORY TYPE CODE TESTS RESULT OUT OF RANGE REFERENCE UNITS LAB L300.4150 11.7-14.9 SECONDS High PROTIME 26.4 LAB L300.4200 Normal INR 2.4 Performed By: #### L300.3900 #### [facility] [address] [place], [address] CHEST 1 VIEW Observed: 11/05/2017 Status: F Source: IONE (PORTABLE) 3:22 PM [facility] REPOSITORY [facility] Imaging Services [address] [place] [address] Chest 1 View (Portable) MR#: [id number] Acct: [id number] Name: KEREN LUIS Rep #: [id number] : 1935 F 82 From: Hernan Benz MD PCP: Gilberto Rob MD Status: REG ER Study: Chest 1 View (Portable) Date of Exam: 11/05/17 Exam# [id number] Ordering Dr: Lazara Garcia MD STUDY: X-RAY CHEST REASON FOR EXAM: Female, 82 years old. Increased fluid retention and bilateral lower extremity and abdominal edema. TECHNIQUE: Portable chest upright COMPARISON: 03/31/2017 FINDINGS: Left pectoral single lead AICD device, median sternotomy and left atrial appendage clip. The lungs are clear without features of acute CHF. No effusion or pneumothorax. No infiltrate. Stable mild cardiomegaly. Normal mediastinal silhouette, blaise and pleural margins. No acute osseous or upper abdominal process. RAD/Chest 1 View (Portable) IMPRESSION: No acute cardiopulmonary process. There is no evidence of acute cardiogenic pulmonary edema. Electronically Signed: Hernan Benz, at 16:20 EDT Tel , Service support , CC: Lazara Garcia MD; Gilberto Rob MD Air Chipper: Signed CARDIOLOGY VISIT Observed: 11/05/2017 Status: F Source: IONE REPORT 2:50 PM [facility] REPOSITORY [facility] [address] [place] [address]. [address] [place] [address] OFFICE VISIT Date of Service: 11/05/17 MR#: [id number] Acct: [id number] Name: KEREN LUIS Rep #: [id number] : 1935 Provider: Salvador Conn MD Age/Sex: 82/F Location: [facility] Status: Signed HPI HPI Chief Complaint: Routine f/u Details: KEREN LUIS, is a 82 F who presents to the office today for She has history of coronary artery disease status post bypass with Dr. Núñez in December 2016 with a ANGULO to the LAD and reverse SVG to obtuse marginal branch, status post left atrial appendage with a 35 mm Atricure clip, mitral valve insufficiency status post mitral valve repair in December 2016 with a 27 mm [place] Olegario epic bioprosthesis, dilated cardiomyopathy, hypertension, hyperlipidemia, status post AICD defibrillator, SVT in which she follows with Dr. Hernandez, breast cancer status post chemotherapy,renal carcinoma status post nephrectomy, and chronic renal insufficiency stage III. Patient remote pacemaker sent a yellow alert to pacemaker clinic. This alert notified that ATP therapy was delivered to convert arrhythmia for monomorphic ventricular tachycardia. It was also noted that she had 1382 nonsustained ventricular tachycardia episodes since January 2017. She had laboratory work drawn to address this and it showed that her potassium was 4 and that her magnesium was 1.7. Creatinine was elevated at 2.01. She presents today for follow-up regarding this. Patient was started on amiodarone therapy Patient now returns for an urgent visit with worsening lower extremity edema, abdominal bloating, orthopnea, PND, and shortness of breath. In addition she has a history of renal cancer and only has one kidney and has chronic renal insufficiency with an elevated creatinine as well. We have tried as an outpatient to increase her Lasix, but this has not worked, most likely secondary to abdominal edema. She denies any chest pain or angina. Repeat echo is pending. In our office today her blood pressure is 110/60, pulse is 72 and regular. Physical exam shows decreased breath sounds bilaterally, JVP at 90 , regular rate and rhythm, normal S1/S2, no diastolic murmurs recorded, positive abdominal edema as well as 2-3+ pitting edema up to both thighs. Her lipids as of 09/06/17 showed HDL 27 and LDL of 64. EKG is pending. Intake Vital Signs11/05/17 Height 5 ft 5 in 11/05/17 Weight: 227 lb 8 oz 11/05/17 Body Mass Index (BMI) 37.8 11/05/17 Blood Pressure 110/60 Intake Visit Reasons: 6 M FU Allergies erythromycin base Adverse Reaction (Verified 11/05/17 13:40) Vomiting meperidine [From Demerol] Adverse Reaction (Verified 11/05/17 13:40) Vomiting Medications Aspirin [Aspirin, Baby] 81 mg PO DAILY@0800 12/23/16 [History Confirmed 10/31/17] Furosemide 40 mg PO DAILY 12/23/16 [History Confirmed 10/31/17] Niacin 250 mg PO DAILY 12/23/16 [History Confirmed 10/31/17] Omeprazole [Prilosec] 20 mg PO DAILY 12/23/16 [History Confirmed 10/31/17] acetaminophen 325 mg tablet 650 mg PO Q4H PRN 03/19/17 [History Confirmed 04/23/17] alprazolam 0.5 mg tablet 0.5 mg PO TID PRN tab 03/19/17 [History Confirmed 04/23/17] metoprolol tartrate 25 mg tablet 25 mg PO BID 03/19/17 [History Confirmed 10/31/17] sennosides 8.6 mg tablet 8.6 mg PO QDAY 03/19/17 [History Confirmed 04/23/17] warfarin 3 mg tablet 3 mg PO TUWETHFRSA 03/19/17 [History Confirmed 10/01/17] Metformin HCl [Glucophage] 500 mg PO DAILY 03/31/17 [History Confirmed 04/23/17] Warfarin [Coumadin ([facility])] 1.5 mg PO SUMO 03/31/17 [History Confirmed 10/01/17] amiodarone 200 mg tablet 200 mg PO QDAY 90 Days #90 tab 04/19/17 [History Confirmed 10/31/17] magnesium oxide 400 mg tablet 400 mg PO QDAY #30 tab 09/26/17 [Rx Confirmed 09/26/17] [facility] Medical History Ventricular tachyarrhythmia (Chronic) Secondary pulmonary arterial hypertension (Chronic) Ischemic cardiomyopathy (Chronic) Atherosclerosis of coronary artery of wiyot heart without angina pectoris (Chronic) snf (current) use of 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 (Chronic) Acute on chronic systolic CHF (congestive heart failure) (Chronic) Chronic kidney disease, stage 3 (Chronic) Type 2 diabetes mellitus (Chronic) History of breast cancer (Chronic) History of renal cell carcinoma (Chronic) Hypertension (Chronic) Surgical History H/O coronary artery bypass surgery (Acute) Presence of implantable cardioverter-defibrillator (ICD) (Chronic 05/10/09) Status post right nephrectomy (Chronic) Status post implantation of automatic cardioverter/defibrillator (AICD) (Chronic) History of left heart catheterization (Acute 12/25/16) History of mitral valve replacement (Chronic) History of partial mastectomy of left breast (Chronic 11/2003) History of total abdominal hysterectomy (Chronic) Hx of CABG (Chronic 12/2016) Hx of cholecystectomy (Chronic) Family History Brother CAD (coronary artery disease) Social History Smoking Status: Never smoker ROS Const Const: Positive for weakness, other (Poor urine output, brown urine, edema and bilateral crackles) and fatigue; negative for body ache, fever(s), headache(s), chills, frequent falls, night sweats, daytime sleepiness, difficulty sleeping, weight gain, weight loss, increased appetite, poor appetite, anorexia or excessive sweating Eyes Eyes: Negative for blind spots, loss of peripheral vision, transient loss of vision, change in vision, floaters, tunnel vision, other, blurry vision or double vision ENT ENT: Negative for hearing loss, tinnitus, Nosebleed/epistaxis, balance problems, post nasal drip, lip swelling, tongue swelling, bleeding gums, hoarseness, neck pain, dry mouth, other, dizziness or headache(s) Cardio Chest Pain: No Palpitations: No Edema: Bilateral (Pitting to knees, and also abdominal distention) Resp Respiratory: Positive for SOB with activity, SOB orthopnea\SOB lying down, crackles and Cough; negative for SOB at rest, Coughing up blood/hemoptysis, chest congestion, pain on inspiration, snoring, stridor, wheezing, paroxysmal nocturnal dyspnea or other GI GI: Negative nausea, vomiting, heartburn, constipation, belching, bloating, cramping, vomiting blood/hematemesis, bright, red blood in stools, black,tarry stools, loose stools, Difficulty Swallowing or other : Negative for hematuria, frequent nighttime urination/ nocturia, erectile dysfunction or abnormal vaginal bleeding Musc Musc: Negative for balance problems, muscle aches/ myalgia, muscle weakness or joint pain Skin Skin: Negative redness, non-healing lesions, rash, unusual bruising, skin ulcer, wounds, jaundice or other Neuro Neuro: Positive for weakness; negative for blurry vision, double vision, dizziness, lightheadedness, near syncope, syncope, orthostatic symptoms, confusion, memory loss, restless legs, vertigo, seizures, lack of coordination, other, headache(s) or frequent falls Marcus Hematologic/Lymphatic: Negative for easy bleeding, easy bruising, enlarged lymph nodes or other Endo Endo: Positive for fatigue; negative for excessive sweating, cold intolerance, heat intolerance, flushing, increased thirst/drinking, increased hunger, hair loss, hair growth or other Psych Psych: Negative for anxiety, depression, thoughts of harming anyone, thoughts of harming yourself, visual hallucinations, panic attacks or audible hallucinations Allergy Allergy/Immunology: Negative for lip swelling, Negative for tongue swelling, Negative for rash, Negative for throat swelling, Negative for hives Cardiology Exam Const Appearance: cooperative, healthy appearing and no acute distress Nutritional Appearance: well nourished Orientation: alert, oriented x3 and oriented to person Head Head: normal to inspection, atraumatic and normocephalic Nose: external nose normal Face and Sinus: face symmetric Mouth: oral mucosae normal Eyes General: appearance normal, both eyes and all related structures Eyelids: eyelids normal Conjunctivae: conjunctivae normal Pupils: PERRL and normal by confrontation EOM: EOM intact bilaterally Neck Neck: normal visual inspection and full ROM Carotids: normal carotid upstroke Chest Chest inspection: normal inspection of the chest Auscultation: Bilateral: Clear to Auscultation Cardio Palpation: normal PMI Rate: regular rate Rhythm: regular rhythm Heart sounds: S1 normal and S2 normal GI GI: normal to inspection, no hepatosplenomegaly and bowel sounds present Neuro General: alert, oriented x3, awake, CN's II-XI intact bilaterally and moves all extremities Skin Skin: no rashes or lesions noted Extremities Pulses: Normal: Right Femoral Pulse, Left Femoral Pulse, Right Dorsalis Pedis Pulse, Left Dorsalis Pedis Pulse, Right Posterior Tibial Pulse, Left Posterior Tibial Pulse, Right Radial Pulse, Left Radial Pulse Lower Extremity Edema: None: Bilateral Psych Psychological: normal affect Assessment AND Plan 1. Ischemic cardiomyopathy I25.5 Plan 1. Ischemic cardiomyopathy: Given the patient struggles with her fluid overload, LV dysfunction, mitral valve repair, and worsening edema, she has failed outpatient medical therapy at this time. It is probable that she has got edema preventing her diuretic therapy from reaching her bloodstream in the first place. It is also possible the patient may have mitral stenosis as a result of her healing from her mitral valve repair. I recommended the patient be admitted through the emergency room for IV diuretic therapy with a Bumex drip of 0.5 mg/h as well as metolazone 2.5 mg 1 now. Would recommend starting her on a Medrano catheter, and repeating her echocardiogram to assess her mitral valve pressures and pulmonary pressures. I believe much of her issue is most likely renal induced as she has only one remaining kidney and has chronic renal insufficiency and poor glomerular filtration in that remaining kidney. She was supposed to see Dr. Rowe at the late end of December, and we will move that up to while she is in the hospital for possible dialysis sooner than later if not for fluid removal. In the meantime she will continue her baby aspirin, metoprolol, will hold her metformin, 2. Ventricular tachyarrhythmia I47.2 Plan 2. Ventricular tachyarrhythmias: The patient had a history of ventricular tachyarrhythmias requiring ATP therapy. She has been placed on amiodarone therapy and is compliant with this. Continue amiodarone therapy. 3. Paroxysmal atrial fibrillation: Given her age, LV dysfunction, pulmonary pressures she is at high risk for DVT and recurrent atrial fibrillation. Continue warfarin therapy. Should the patient require a dialysis catheter this will most likely need to be held. 4. Hyperlipidemia: Her LDL and HDL cholesterol are at goal. Continue niacin. 5. Return office in 1 month in 4 months.. This note was generated using a voice recognition system and there may be incorrect words, spelling or punctuation that were not noted when reviewing the office note prior to saving. Plan Detail Follow Up +4M (Marc or SUSAN) +1M (Marc or SUSAN) Coding Level of Care Code Off vis,est,level 4 Diagnoses Ischemic cardiomyopathy I25.5 Ventricular tachyarrhythmia I47.2 Coding Level of Care Code Off vis,est,level 4 Diagnoses Ischemic cardiomyopathy I25.5 Ventricular tachyarrhythmia I47.2 11/05/17 1450 <Electronically signed by Salvador Conn MD> Date Salvador Conn MD Cosigner Signature: Date (if applicable) CC: Gilberto Rob MD PROTHROMBIN TIME W/INR Collected: 10/30/2017 Status: F Source: FAISAL 11:28 AM [facility] REPOSITORY TYPE CODE TESTS RESULT OUT OF RANGE REFERENCE UNITS LAB L300.4150 11.7-14.9 SECONDS High PROTIME 27.0 LAB L300.4200 Normal INR 2.5 Performed By: #### L300.3900 #### [facility] [address], [address] CBC W/DIFF, AUTOMATED Collected: 10/15/2017 Status: F Source: FAISAL 2:35 PM [facility] REPOSITORY TYPE CODE TESTS RESULT OUT OF RANGE REFERENCE UNITS LAB L100.1000 4.4-11.0 K/mm3 Normal WBC 7.1 LAB L100.1200 4.2-5.4 M/mm3 Normal RBC 4.36 LAB L100.1300 12.0-15.0 g/dl Low HGB 9.5 LAB L100.1400 37-47 % Low HCT 34.1 LAB L100.1500 81-99 fL Low MCV 78.2 LAB L100.1600 27.0-32.0 pg Low MCH 21.8 LAB L100.1700 32-36 g/gl Low MCHC 27.9 LAB L100.1810 11.6-14.6 % High RDW CV 22.9 LAB L100.1820 35.1-43.9 fl High RDW SD 63.1 LAB L100.1900 150-450 K/mm3 Normal PLT 160 LAB L100.2000 6.2-12.0 fl Normal MPV 9.8 LAB L100.2100 47-70 % High NEUT% 79.3 LAB L100.2200 19-41 % Low LY% 10.3 LAB L100.2300 0-10 % Normal MONO% 9.6 LAB L100.2400 0-5 % Normal EO% 0.6 LAB L100.2500 0-1 % Normal BASO% 0.1 LAB L100.2550 0.0-0.9 % Normal IM GRAN % 0.100 Result Comment: IG% - Immature Granulocytes (promyelocytes, myelocytes and metamyelocytes) > 1% indicates that a LEFT SHIFT is Present. LAB L100.2620 2.0-7.7 X10 3/uL Normal Absolute Neut 5.6 LAB L100.2720 0.83-4.51 X10 3/ul Low Absolute Lymph 0.73 LAB L100.4500 SMEAR Normal COMMENT Result Comment: 1+ ANISOCYTOSIS Performed By: #### L100.0100 #### [facility] [address] [place], [place], [address] BASIC METABOLIC Collected: 10/15/2017 Status: F Source: IONE PROFILE (BMP) 2:35 PM [facility] REPOSITORY TYPE CODE TESTS RESULT OUT OF RANGE REFERENCE UNITS LAB L501.0100 74-106 mg/dL High GLU 129 Result Comment: Fasting Glucose result greater than or equal to 126 mg/dL suggests DIABETES MELLITUS per A.D.A. criteria. Please note revised GLUCOSE reference range effective 2017. LAB L501.1000 7-18 mg/dL High BUN 38 LAB L501.1100 0.55-1.02 mg/dL High CREAT,SERUM 2.47 Result Comment: The validity of the calculated GFR AND GFRAA in patients over 70 years has not been determined. Clinical correlation is essential. LAB L501.1110 >60 mL/min Low EST GFR 20 Result Comment: Non- GFR Calc LAB L501.1115 >60 mL/min Low EST GFR - AA 24 Result Comment: GFR Calc LAB L501.1300 10-20 RATIO Normal BUN/CRE 15.4 LAB L501.2200 8.5-10.1 mg/dL CA Normal 8.8 LAB L501.5300 136-145 mmol/L NA Normal 143 LAB L501.5600 3.5-5.1 mmol/L K Normal 5.1 LAB L501.5900 98-107 mmol/L CL Normal 105 LAB L501.6100 21.0-32.0 mmol/L Normal CO2 29.0 LAB L501.6200 5-15 Normal GAP 9 Performed By: #### L500.2500 #### [facility] [address] [place], [place], [address] PROTHROMBIN TIME W/INR Collected: 10/15/2017 Status: F Source: IONE 2:35 PM [facility] REPOSITORY TYPE CODE TESTS RESULT OUT OF RANGE REFERENCE UNITS LAB L300.4150 11.7-14.9 SECONDS High PROTIME 23.8 LAB L300.4200 Normal INR 2.1 Performed By: #### L300.3900 #### [facility] [address] [place], [address] PROTHROMBIN TIME W/INR Collected: 10/08/2017 Status: F Source: IONE 2:49 PM [facility] REPOSITORY TYPE CODE TESTS RESULT OUT OF RANGE REFERENCE UNITS LAB L300.4150 11.7-14.9 SECONDS High PROTIME 21.6 LAB L300.4200 Normal INR 1.9 Performed By: #### L300.3900 #### [facility] [place], [address] PROTHROMBIN TIME W/INR Collected: 10/01/2017 Status: F Source: IONE 1:17 PM [facility] REPOSITORY TYPE CODE TESTS RESULT OUT OF REFERENCE UNITS RANGE LAB L300.4150 11.7-14.9 SECONDS High PROTIME 37.0 LAB L300.4200 High alert INR 3.7 Result Comment: CRITICAL VALUE VERIFIED. CALLED TO CRISTIANO AT 'S OFFICE. 10/01/17 1430 Justin Peterson. RESULTS READ BACK BY SAME. Performed By: #### L300.3900 #### [facility] [place], [address] PROTHROMBIN TIME W/INR Collected: 09/28/2017 Status: F Source: IONE 1:34 PM [facility] REPOSITORY TYPE CODE TESTS RESULT OUT OF REFERENCE UNITS RANGE LAB L300.4150 11.7-14.9 SECONDS High PROTIME 49.0 LAB L300.4200 High alert INR 5.3 Result Comment: CRITICAL VALUE VERIFIED. CALLED TO [facility] 09/28/17 1501 Tamy Spivey. RESULTS READ BACK BY SAME . Performed By: #### L300.3900 #### [facility] [address] [place], [place], [address] PACEMAKER CHECK Observed: 09/26/2017 Status: F Source: IONE 4:29 PM [facility] REPOSITORY [facility] [address] [place] [address] Pacemaker Check Date of Service: 09/24/171829 MR#: [id number] Acct: [id number] Name: KEREN LUIS Rep #: [id number] : 1935 From: Kelly Parker Age/Sex: 81/F Location[facility] Status: Signed Comments Summary Comments: Remote Single Chamber ICD Evaluation: Received yellow alert for ATP therapy delivered to convert arrhythmia. Interrogation shows 1 VT episode, 13 no therapy programmed, 1382 NSVT episodes since 02/02/17. stored e-gram for VF episode shows on 09/20/17 @ 5:06 am what appears to be MVT @ 220 bpm with ATPx1 prior to charging converting to vent. paced rhythm then sinus bradycardia. Single lead device. Stored e-grams available for review for NSVT episodes show what appears to be MVT @ 160 to 180 bpm for 2 to 3 secs. OFFICE SERVICES CLERK=0%. Estimated battery life 5 yrs. Lead impedance and sensing remain stable. Dr. Conn aware of above and labs ordered. Device Device Date Interviewed: 09/24/17 Follow-up Location: remote Interview Reason: documented arrhythmia Retail Field Representative: [employer] Name: Teligen 100 Model: E102 Serial #: [id number] Implant Date: 05/10/09 Year(s): 8 Implant Physician: Dr. Tadeo Archibald/[facility] Patient Characteristics Atrial Indication: Permanent atrial fibrillation Patient Substrate: Arrhythmia (supraventricular tachycardia), Ischemic cardiomyopathy Underlying rhythm: Atrial fibrillation Pacemaker Dependent: No Device Characteristics Device: Single Chamber Type: Implantable defibrillator Remote Follow-Up: [employer] Lead #1 Retail Field Representative Lead 1: Guidant Model Lead 1: [id number] Serial# Lead 1: [id number] Date Implanted Lead 1: 05/10/09 Position Lead 1: [employer] Pacing % RV Pacin Arrhythmias VF Episodes: 1 Fast VT Episodes: 0 Slow VT Episodes: 0 Atrial Tach Episodes: 0 Atrial Fib Episodes: 0 Non-Sust Episodes: 1,382 Measurements Battery Charge Time (Sec): 10.7 Predicted Remaining Longevity (months or years): 5 years RV Measurements Signal Amplitude (mV): 8.0 Impedance (Ohms): 522 Shock Impedance (Ohms): 36 Tachy Settings Ventricular Fibrillation Detect Rate: 200 bpm Faster VT Detect Rate: 170 bpm Slower VT Detect Rate: 150 bpm Tachyarrhythmia Therapies Ventricular Fibrillation Therapy: Shock therapy Initial shock: 23 Joules Final shock: 41 Joules. Fast Ventricular Tachycardia Therapies: Antitachycardia pacing and shock therapy Initial shock: 23 Joules Final shock: 41 Joules. Slow Ventricular Tachycardia Therapies: Monitor Only [place] Settings Bradycardia Mode and Timing Settings Pacemaker Mode: VVI Base Rate: 40 bpm Bradycardia Output and Sensitivity Settings Right Ventricle: 0.5 msec, 2.0 volts, Automatic mV sensitivity. Billing Codes ICD Device Billing: ICD Dev Interrogate (Rmt) Assessment AND Plan Problems 1. Ischemic cardiomyopathy I25.5 2. Atherosclerosis of coronary artery of wiyot heart without angina pectoris I25.10 3. Status post implantation of automatic cardioverter/defibrillator (AICD) Z95.810 09/24/17 1900 <Electronically signed by Kelly Parker > Date Kelly Parker 09/26/17 1629<Electronically signed by Salvador Conn MD> [facility] Signature: Date (if applicable) Salvador Conn MD CC: CARDIOLOGY VISIT Observed: 09/26/2017 Status: F Source: IONE REPORT 4:29 PM [facility] REPOSITORY [facility] [address] [place] [address]. [address] [place] [address] OFFICE VISIT Date of Service: 09/26/17 MR#: [id number] Acct: [id number] Name: KEREN LUIS Rep #: [id number] : 1935 Provider: LILY Patel Age/Sex: 81/F Location: [facility] Status: Signed HPI HPI Details: KEREN LUIS, is a 81 F who presents to the office today for She has history of coronary artery disease status post bypass with Dr. Núñez in December 2016 with a ANGULO to the LAD and reverse SVG to obtuse marginal branch, status post left atrial appendage is a 35 mm Atricure clip, mitral valve insufficiency status post mitral valve repair in December 2016 with a 27 mm [place] Olegario epic bioprosthesis, dilated cardiomyopathy, hypertension, hyperlipidemia, status post AICD defibrillator, SVT in which she follows with Dr. Hernandez, breast cancer status post chemotherapy,renal carcinoma status post nephrectomy, and chronic renal insufficiency stage III. Patient remote pacemaker sent a yellow alert to pacemaker clinic. This alert notified that ATP therapy was delivered to convert arrhythmia for monomorphic ventricular tachycardia. It was also noted that she had 1382 nonsustained ventricular tachycardia episodes since January 2017. She had laboratory work drawn to address this and it showed that her potassium was 4 and that her magnesium was 1.7. Creatinine was elevated at 2.01. She presents today for follow-up regarding this. Pt denies chest, arm, jaw, or neck discomfort. Her exercise tolerance is stable. Pt denies symptoms of CHF, palpitations, lightheadedness, dizziness, near syncopal or syncopal episodes. Pt denies claudication issues. Pt. denies orthopnea, PND, fever, chills, blood in urine, blood in stool, or myalgia. She states waxing and waning fatigue. She states not sleeping well d/t feeling anxious. This may cause day time fatigue. She states she has been sleeping in a recliner lately d/t anxiety that may be contributing to her edema. Her edema is still present, but is overall improving since bypass surgery. Intake Vital Signs09/26/17 Height 5 ft 5 in 09/26/17 Weight: 217 lb 09/26/17 Body Mass Index (BMI) 36.1 09/26/17 Blood Pressure 118/70 Intake Visit Reasons: PER PK Allergies erythromycin base Adverse Reaction (Verified 04/23/17 14:46) Vomiting meperidine [From Demerol] Adverse Reaction (Verified 04/23/17 14:46) Vomiting Medications Aspirin [Aspirin, Baby] 81 mg PO DAILY@0800 12/23/16 [History Confirmed 04/23/17] Furosemide 40 mg PO DAILY 12/23/16 [History Confirmed 04/23/17] Niacin 250 mg PO DAILY 12/23/16 [History Confirmed 04/23/17] Omeprazole [Prilosec] 20 mg PO DAILY 12/23/16 [History Confirmed 04/23/17] acetaminophen 325 mg tablet 650 mg PO Q4H PRN 03/19/17 [History Confirmed 04/23/17] alprazolam 0.5 mg tablet 0.5 mg PO TID PRN tab 03/19/17 [History Confirmed 04/23/17] metoprolol tartrate 25 mg tablet 25 mg PO BID 03/19/17 [History Confirmed 04/23/17] sennosides 8.6 mg tablet 8.6 mg PO QDAY 03/19/17 [History Confirmed 04/23/17] warfarin 3 mg tablet 3 mg PO TUWETHFRSA 03/19/17 [History Confirmed 09/14/17] Metformin HCl [Glucophage] 500 mg PO DAILY 03/31/17 [History Confirmed 04/23/17] Warfarin [Coumadin ([facility])] 1.5 mg PO SUMO 03/31/17 [History Confirmed 09/14/17] amiodarone 200 mg tablet 200 mg PO QDAY 90 Days #90 tab 04/19/17 [History Confirmed 09/26/17] magnesium oxide 400 mg tablet 400 mg PO QDAY #30 tab 09/26/17 [Rx Confirmed 09/26/17] PFSH Medical History Ventricular tachyarrhythmia (Chronic) Secondary pulmonary arterial hypertension (Chronic) Ischemic cardiomyopathy (Chronic) Atherosclerosis of coronary artery of wiyot heart without angina pectoris (Chronic) snf (current) use of 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 (Chronic) Acute on chronic systolic CHF (congestive heart failure) (Chronic) Chronic kidney disease, stage 3 (Chronic) Type 2 diabetes mellitus (Chronic) History of breast cancer (Chronic) History of renal cell carcinoma (Chronic) Hypertension (Chronic) Surgical History H/O coronary artery bypass surgery (Acute) Presence of implantable cardioverter-defibrillator (ICD) (Chronic 05/10/09) Status post right nephrectomy (Chronic) Status post implantation of automatic cardioverter/defibrillator (AICD) (Chronic) History of left heart catheterization (Acute 12/25/16) History of mitral valve replacement (Chronic) History of partial mastectomy of left breast (Chronic 11/2003) History of total abdominal hysterectomy (Chronic) Hx of CABG (Chronic 12/2016) Hx of cholecystectomy (Chronic) Family History Brother CAD (coronary artery disease) Social History Smoking Status: Never smoker ROS Const Const: Positive for fatigue; negative for weakness, body ache, fever(s) or chills ENT ENT: Negative for dizziness Cardio Chest Pain: No Palpitations: No Edema: Bilateral Muscle aches with walking: None Resp Respiratory: Negative for SOB with activity, SOB at rest, SOB orthopnea\SOB lying down or paroxysmal nocturnal dyspnea GI GI: Negative nausea, black,tarry stools, bright, red blood in stools or vomiting blood/hematemesis : Negative for hematuria or frequent nighttime urination/ nocturia Musc Musc: Negative for muscle aches/ myalgia Skin Skin: Negative non-healing lesions or rash Neuro Neuro: Negative for weakness, dizziness, lightheadedness, near syncope, syncope or orthostatic symptoms Endo Endo: Positive for fatigue Allergy Allergy/Immunology: Negative for rash Cardiology Exam Const Appearance: cooperative, healthy appearing, comfortable and no acute distress Orientation: alert, awake and oriented x3 Head Head: normal to inspection Ears: hearing grossly normal bilaterally Nose: external nose normal Face and Sinus: face symmetric Mouth: oral mucosae normal Eyes General: appearance normal, both eyes and all related structures Eyelids: eyelids normal Neck Neck: no JVD and normal visual inspection Carotids: normal carotid upstroke Chest Chest inspection: normal inspection of the chest and normal respiratory effort; negative cough Auscultation: Bilateral: Clear to Auscultation Cardio Rate: regular rate Rhythm: regular rhythm Heart sounds: S1 normal and S2 normal; negative rub or gallop GI GI: normal to inspection Neuro General: alert, awake, oriented x3 and CN's II-XI intact bilaterally Skin Skin: no rashes or lesions noted Extremities Pulses: Normal: Right Posterior Tibial Pulse, Left Posterior Tibial Pulse, Right Radial Pulse, Left Radial Pulse Lower Extremity Edema: +2: Bilateral Psych Psychological: normal affect Supplemental Info Heart catheterization in December 2016 prior to bypass and mitral valve replacement showed a very severe ostial LAD lesion, chronically occluded circumflex artery, obtuse marginal branch filling via left to left collaterals, and the right coronary artery was large giving off multiple PDA and multiple PL branches which were free of significant disease. The LAD was an unusual configuration with very early application into 3 very thin small branches but were free of significant disease. Stress test from September 2016 demonstrated myocardial perfusion changes appearing compatible with stress-induced myocardial ischemia and reported an ejection fraction of 40%. Echocardiogram from September 2016 showed an ejection fraction of 35%, moderate to severe global hypokinesis of left ventricle, severely enlarged left atrium, moderately severe mitral valve insufficiency, RVSP 25 mmHg, when compared to previous echo in August 2008 LV function, RVSP in degree of MR has remained about the same. Assessment AND Plan 1. Ventricular tachyarrhythmia I47.2 Plan - LIGIA Billy EKG in office showed sinus rhythm. Patient's remote pacemaker check from August 2017 showed a yellow alert for ATP therapy delivered to convert MVT at 220 bpm successfully with conversion to ventricular paced rhythm then to sinus bradycardia. She also had 1382 NSVT episode since January 2017. Laboratory work showed a creatinine level of 2.01, GFR of 25, potassium of 4, and magnesium of 1.7. She was asked to begin magnesium supplement medication. In the event that this is not the sole cause, she was asked to increase her amiodarone to 400 mg for 1 week return to 200 mg daily. We will assess her remote pacemaker checks to monitor her ventricular rhythm. In her event dysrhythmia remains high, she will be advised to continue follow-up with electrophysiology Dr. Hernandez. Overall, patient is asymptomatic with these dysrhythmias. Patient Instructions - LIGIA Billy Please increase amiodarone to 400mg (two pills) for one week and then return to 200mg (one pill). Also, please take the new magnesium to replace to low normal lab value. We will continue to follow your remote checks in the mean time. Keep your appointment with Dr. Conn. 2. 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 marginal branch Plan - LIGIA Billy Patient denies any chest pain, arm pain, jaw pain, neck pain, shortness of breath, or fatigue suggestive of angina at this time. We will continue to monitor this. We will not make any medication regimen changes and will continue risk factor modification. 3. H/O coronary artery bypass surgery Z95.1 S/P bypass surgery in [address] 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 marginal branch Plan - LIGIA Billy She will continue current treatment plan as outlined above. 4. Ischemic cardiomyopathy I25.5 Plan - LIGIA Billy Patient's echocardiogram from September 2016 showed ejection fraction 35%. She denies any shortness of breath. She does present with 2 3+ bilateral pitting edema. She states this is much improved since her bypass surgery but yet it remains. Her most recent kidney function is increased. Thus, her diuretic is not adjusted at this time given that she has no shortness of breath. If her diuretic is adjusted in the future potassium supplement may be warranted due to history of ventricular dysrhythmia as noted above. She will continue with her beta-elda and diuretic for this. We will continue to monitor. Orders Orders: 5. Essential hypertension I10 Plan - LIGIA Billy Patient's blood pressure is well-controlled today in the office. We will continue to monitor this. We will not make any medication regimen changes. 6. Fatigue R53.83 Plan - LIGIA Billy After last office visit it was noted that her TSH was normal. It is possible that her fatigue is due to lack of consistent sleep. In the event that her beta-elda needs to be adjusted this will have to be taken into account given her fatigue. Thus, at this time her beta-elda has not been adjusted. She will continue follow-up with primary care physician for this. Plan Detail Other Orders Orders: Other Medications New: Additional Comments - LIGIA Billy Discussed the above patient with Dr. Conn, he agrees with the plan of care. Thank you for allowing us to participate in the patients plan of care, if you have any questions please do not hesitate to call. This note was generated using a voice recognition system and there may be incorrect words, spelling or punctuation that were not noted when reviewing the office note prior to saving. 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 I25.10 Coronary Disease-Associated Artery/Lesion type: wiyot artery H/O coronary artery bypass surgery Z95.1 Ischemic cardiomyopathy I25.5 Essential hypertension I10 Hypertension type: essential hypertension Fatigue R53.83 09/26/17 1255 <Electronically signed by James Patel PRINCIPAL SYSTEMS ENGINEER-C> Date James Patel PRINCIPAL SYSTEMS ENGINEER-C 09/26/17 1629<Electronically signed by Salvador Conn MD> Cosigner Signature: Date (if applicable) Salvador Conn MD CC: Gilberto Rob MD BASIC METABOLIC Collected: 09/25/2017 Status: F Source: FAISAL PROFILE ([facility]) 10:06 AM [facility] REPOSITORY TYPE CODE TESTS RESULT OUT OF RANGE REFERENCE UNITS LAB L501.0100 74-106 mg/dL High GLU 150 Result Comment: Fasting Glucose result greater than or equal to 126 mg/dL suggests DIABETES MELLITUS per A.D.A. criteria. Please note revised GLUCOSE reference range effective 2017. LAB L501.1000 7-18 mg/dL High BUN 31 LAB L501.1100 0.55-1.02 mg/dL High CREAT,SERUM 2.01 Result Comment: The validity of the calculated GFR AND GFRAA in patients over 70 years has not been determined. Clinical correlation is essential. LAB L501.1110 >60 mL/min Low EST GFR 25 Result Comment: Non- GFR Calc LAB L501.1115 >60 mL/min Low EST GFR - AA 31 Result Comment: GFR Calc LAB L501.1300 10-20 RATIO Normal BUN/CRE 15.4 LAB L501.2200 8.5-10.1 mg/dL CA Normal 8.6 LAB L501.5300 136-145 mmol/L NA Normal 142 LAB L501.5600 3.5-5.1 mmol/L K Normal 4.0 LAB L501.5900 98-107 mmol/L CL Normal 105 LAB L501.6100 21.0-32.0 mmol/L Normal CO2 25.0 LAB L501.6200 5-15 Normal GAP 12 Performed By: #### L500.2500, L501.5200 #### [facility] [address] [place], [address] MAGNESIUM Collected: 09/25/2017 Status: F Source: IONE 10:06 AM [facility] REPOSITORY TYPE CODE TESTS RESULT OUT OF RANGE REFERENCE UNITS LAB L501.5200 1.6-2.6 mg/dL Normal MG 1.7 Performed By: #### L500.2500, L501.5200 #### [facility] [address] [place], [address] PACEMAKER CHECK Observed: 09/20/2017 Status: F Source: FAISAL 4:46 PM [facility] REPOSITORY [facility] [address] [place] [address] Pacemaker Check Date of Service: 09/13/17 173 MR#: [id number] Acct: [id number] Name: KEREN LUIS Rep #: [id number] : 1935 From: Kelly Parker Age/Sex: 81/F Location: [facility] Status: Signed Comments Summary Comments: Remote Single Chamber ICD Evaluation: See attached scanned Latitude Report. Remote interrogation shows 1391 NSVT episodes since 02/02/17. Last NSVT episode occurred on 09/12/17. Stored e-gram shows VHR @ 151 bpm x 5 beats. presenting rhythm shows NSR @ 80 bpm. OFFICE SERVICES CLERK=0%. Estimated battery life 5 yrs. Lead impedance and sensing remain stable. Normal remote ICD function. Next remote f/u scheduled for in 3 mos. Device Device Date Interviewed: 09/13/17 Follow-up Location: remote Interview Reason: scheduled follow up Retail Field Representative: [employer] Name: Teligen 100 Model: E102 Serial #: [id number] Implant Date: 05/10/09 Year(s): 8 Implant Physician: Dr. Tadeo Archibald/[facility] Patient Characteristics Atrial Indication: Permanent atrial fibrillation Patient Substrate: Arrhythmia (supraventricular tachycardia), Ischemic cardiomyopathy Underlying rhythm: Atrial fibrillation Pacemaker Dependent: No Device Characteristics Device: Single Chamber Type: Implantable defibrillator Remote Follow-Up: Latitude Leads Lead #1 Retail Field Representative Lead 1: Guidant Model Lead 1: 0185 Serial# Lead 1: [id number] Date Implanted Lead 1: 05/10/09 Position Lead 1: RV Diagnostics Pacing % RV Pacin Arrhythmias Non-Sust Episodes: 1,391 Tachy Settings Ventricular Fibrillation Detect Rate: 200 bpm Faster VT Detect Rate: 170 bpm Slower VT Detect Rate: 150 bpm Tachyarrhythmia Therapies Ventricular Fibrillation Therapy: Shock therapy Initial shock: 23 Joules Final shock: 41 Joules. Fast Ventricular Tachycardia Therapies: Antitachycardia pacing and shock therapy Initial shock: 23 Joules Final shock: 41 Joules. Slow Ventricular Tachycardia Therapies: Monitor Only [place] Settings Bradycardia Mode and Timing Settings Pacemaker Mode: VVI Base Rate: 40 bpm Bradycardia Output and Sensitivity Settings Right Ventricle: 0.5 msec, 2.0 volts, Automatic mV sensitivity. Billing Codes ICD Device Billing: ICD Dev Interrogate (Rmt) Assessment AND Plan Problems 1. Status post implantation of automatic cardioverter/defibrillator (AICD) Z95.810 2. Ischemic cardiomyopathy I25.5 3. Atherosclerosis of coronary artery of wiyot heart without angina pectoris I25.10 09/20/17 1549 <Electronically signed by Kelly Parker > Date Kelly Parker 09/20/17 1646<Electronically signed by Salvador Conn MD> [facility] Signature: Date (if applicable) Salvador Conn MD CC: DOWNTIME REPORT Observed: 09/20/2017 Status: F Source: IONE 1:34 PM [facility] REPOSITORY [facility] Medical Records Department [address] [place] [address] Downtime Report MR#: [id number] Acct: [id number] Name: KEREN LUIS Rep #: [id number] : 1935 81 From: Riki Dominguez PCP: Gilberto Rob MD Status: REG CLI This patient was seen during an EMR downtime September 03, 2017 - September 10, 2017. This patient may have a combination of paper and electronic documentation or all paper documentation. All documentation is viewable within the e-chart portion of [employer] for each patient visit. PROTHROMBIN TIME W/INR Collected: 09/14/2017 Status: F Source: FAISAL 1:54 PM [facility] REPOSITORY TYPE CODE TESTS RESULT OUT OF RANGE REFERENCE UNITS LAB L300.4150 11.7-14.9 SECONDS High PROTIME 32.5 LAB L300.4200 Normal INR 3.1 Performed By: #### L300.3900 #### [facility] [address] [place], [address] BASIC METABOLIC Collected: 09/06/2017 Status: F Source: FAISAL PROFILE (BMP) 11:25 AM [facility] REPOSITORY Order Comment: RESULT(S) PREVIOUSLY REPORTED ON MANUAL REQUISITION DURING DOWNTIME. TYPE CODE TESTS RESULT OUT OF RANGE REFERENCE UNITS LAB L501.0100 74-106 mg/dL Normal GLU 101 Result Comment: Fasting Glucose result from 100 to 125 mg/dL suggests IMPAIRED HOMEOSTASIS per A.D.A. criteria. Please note revised GLUCOSE reference range effective 2017. LAB L501.1000 7-18 mg/dL High BUN 26 LAB L501.1100 0.55-1.02 mg/dL High CREAT,SERUM 1.70 Result Comment: The validity of the calculated GFR AND GFRAA in patients over 70 years has not been determined. Clinical correlation is essential. LAB L501.1110 >60 mL/min Low EST GFR 31 LAB L501.1115 >60 mL/min Low EST GFR - AA 38 LAB L501.1300 10-20 RATIO Normal BUN/CRE 15.3 LAB L501.2200 8.5-10.1 mg/dL Normal CA 8.7 LAB L501.5300 136-145 mmol/L Normal NA 143 LAB L501.5600 3.5-5.1 mmol/L Normal K 3.9 LAB L501.5900 98-107 mmol/L Normal CL 104 LAB L501.6100 21.0-32.0 mmol/L Normal CO2 30.0 LAB L501.6200 5-15 Normal GAP 9 Performed By: #### L500.2500, L500.3400, L500.4100 #### [facility] [address] [facility] [place], [place], [address] LIVER PROFILE Collected: 09/06/2017 Status: F Source: IONE 11:25 AM [facility] REPOSITORY Order Comment: RESULT(S) PREVIOUSLY REPORTED ON MANUAL REQUISITION DURING DOWNTIME. TYPE CODE TESTS RESULT OUT OF RANGE REFERENCE UNITS LAB L501.1500 6.4-8.2 g/dL Normal T PROT 7.2 LAB L501.1800 3.2-5.0 g/dL Normal ALB 3.4 LAB L501.1950 2.2-4.2 g/dL Normal GLOB 3.8 LAB L501.4100 15-37 U/L Normal AST 15 LAB L501.4305 45-117 U/L High ALK P 136 LAB L501.4405 13-56 U/L Normal ALT 17 LAB L501.4600 0.20-1.00 mg/dL Normal T BILI 1.00 LAB L501.4700 0.00-0.30 mg/dL High D BILI 0.44 Performed By: #### L500.2500, L500.3400, L500.4100 #### [facility] [address] [facility] [place], [place], [id number] LIPID PROFILE Collected: 09/06/2017 Status: F Source: IONE 11:25 AM [facility] REPOSITORY Order Comment: RESULT(S) PREVIOUSLY REPORTED ON MANUAL REQUISITION DURING DOWNTIME. TYPE CODE TESTS RESULT OUT OF RANGE REFERENCE UNITS LAB L501.4900 200 mg/dL Normal CHOL 115 Result Comment: <200 mg/dL Desirable 200-240 mg/dL Borderline >240 mg/dL High Risk LAB L501.5000 mg/dL Normal TRIG 122 Result Comment: The drugs N-Acetylcysteine and Metamizole may falsely depress this assay. Serum Triglycerides Reference Interval Normal <150 mg/dL Borderline high 150 - 199 mg/dL High 200 - 499 mg/dL Very High > or = 500 mg/dL LAB L501.6400 mg/dL Low HDL 27 Result Comment: The drugs N-Acetylcysteine and Metamizole may falsely depress this assay. Reference Range HDL <40 mg/dL Low HDL Cholesterol HDL >or= 60 mg/dL High HDL Cholesterol LAB L501.6500 0-130 mg/dL Normal LDL 64 LAB L501.6600 5-40 mg/dL Normal VLDL 24 Performed By: #### L500.2500, L500.3400, L500.4100 #### [facility] [address] [place], [place], [id number] CBC W/DIFF, AUTOMATED Collected: 09/06/2017 Status: F Source: FAISAL 11:25 AM [facility] REPOSITORY Order Comment: RESULT(S) PREVIOUSLY REPORTED ON MANUAL REQUISITION DURING DOWNTIME. TYPE CODE TESTS RESULT OUT OF RANGE REFERENCE UNITS LAB L100.1000 4.4-11.0 K/mm3 Normal WBC 5.8 LAB L100.1200 4.2-5.4 M/mm3 Normal RBC 4.70 LAB L100.1300 12.0-15.0 g/dl Low HGB 9.4 LAB L100.1400 37-47 % Low HCT 34.2 LAB L100.1500 81-99 fL Low MCV 72.8 LAB L100.1600 27.0-32.0 pg Low MCH 20.0 LAB L100.1700 32-36 g/gl Low MCHC 27.5 LAB L100.1810 11.6-14.6 % High RDW CV 19.4 LAB L100.1820 35.1-43.9 fl High RDW SD 51.4 LAB L100.1900 150-450 K/mm3 Normal PLT 180 LAB L100.2000 6.2-12.0 fl Normal MPV 9.5 LAB L100.2100 47-70 % High NEUT% 76.6 LAB L100.2200 19-41 % Low LY% 12.5 LAB L100.2300 0-10 % Normal MONO% 10.0 LAB L100.2400 0-5 % Normal EO% 0.5 LAB L100.2500 0-1 % Normal BASO% 0.2 LAB L100.2550 0.0-0.9 % Normal IM GRAN % 0.200 Result Comment: IG% - Immature Granulocytes (promyelocytes, myelocytes and metamyelocytes) > 1% indicates that a LEFT SHIFT is Present. LAB L100.2620 2.0-7.7 X10 3/uL Absolute Neut Normal 4.5 LAB L100.2720 0.83-4.51 X10 3/ul Low Absolute Lymph 0.73 LAB L100.4500 SMEAR COMMENT Normal SCANNED LAB L100.7300 ANISO Normal 2+ LAB L100.7600 HYPOCHROMASIA Normal 2+ LAB L100.7700 MICROCYTES Normal 3+ LAB L100.8200 OVALOCYTE Normal 1+ Performed By: #### L100.0100 #### [facility] [address] [place], [address] PROTHROMBIN TIME W/INR Collected: 08/24/2017 Status: F Source: FAISAL 1:17 PM [facility] REPOSITORY TYPE CODE TESTS RESULT OUT OF RANGE REFERENCE UNITS LAB L300.4150 11.7-14.9 SECONDS High PROTIME 28.4 LAB L300.4200 Normal INR 2.7 Performed By: #### L300.3900 #### [facility] [place], [address] PROTHROMBIN TIME W/INR Collected: 08/10/2017 Status: F Source: IONE 2:08 PM [facility] REPOSITORY TYPE CODE TESTS RESULT OUT OF RANGE REFERENCE UNITS LAB L300.4150 11.7-14.9 SECONDS High PROTIME 32.5 LAB L300.4200 Normal INR 3.1 Performed By: #### L300.3900 #### [facility] [place], [address] PROTHROMBIN TIME W/INR Collected: 07/13/2017 Status: F Source: FAISAL 11:10 AM [facility] REPOSITORY Order Comment: PT RECEIVING BLOOD JUDIT SPECIMAN LET TECH KNOW. TYPE CODE TESTS RESULT OUT OF RANGE REFERENCE UNITS LAB L300.4150 11.7-14.9 SECONDS High PROTIME 29.2 LAB L300.4200 Normal INR 2.7 Performed By: #### L300.3900 #### [facility] [address] [place], [address] PROTHROMBIN TIME W/INR Collected: 06/26/2017 Status: F Source: IONE 12:33 PM [facility] REPOSITORY TYPE CODE TESTS RESULT OUT OF RANGE REFERENCE UNITS LAB L300.4150 11.7-14.9 SECONDS High PROTIME 30.9 LAB L300.4200 Normal INR 3.0 Performed By: #### L300.3900 #### [facility] [address] [place], [address] PACEMAKER CHECK Observed: 06/22/2017 Status: F Source: IONE 2:08 PM [facility] REPOSITORY [facility] [address] [place] [address] Pacemaker Check Date of Service: 05/21/17 1116 MR#: [id number] Acct: [id number] Name: KEREN LUIS Rep #: [id number] : 1935 From: Kelly Parker Age/Sex: 81/F Location: [facility] Status: Signed Comments Summary Comments: Remote Single Chamber ICD Evaluation: Remote interrogation shows 1339 NSVT episodes and 13 no therapy programmed since 02/02/17. Stored e-gram for NSVT on 05/19/17 shows what appears to be MVT 200 bpm x 7 beats. Stored e-gram on 04/28/17 shows what appears to be SVT vs VT @ 160 bpm x 4 beats (single lead device). Stored e-gram for no therapy programmed shows 03/31/17 VHR @ 151 bpm. Unable to determine duration from e-gram. Presenting rhythm shows atrial fib @ 86 to 110 bpm. OFFICE SERVICES CLERK=0%. Battery longevity approx 5 yrs. Lead impedance and sensing remain stable. Normal remote ICD function. Pt notified remote transmission received and next f/u appt scheduled for in 3 mos. Device Device Date Interviewed: 05/21/17 Follow-up Location: remote Interview Reason: scheduled follow up Retail Field Representative: [employer] Name: Teligen 100 Model: E102 Serial #: [id number] Implant Date: 05/10/09 Year(s): 8 Implant Physician: Dr. Tadeo Archibald/[facility] Patient Characteristics Atrial Indication: Permanent atrial fibrillation Patient Substrate: Arrhythmia (supraventricular tachycardia), Ischemic cardiomyopathy Underlying rhythm: Atrial fibrillation Pacemaker Dependent: No Device Characteristics Device: Single Chamber Type: Implantable defibrillator Remote Follow-Up: Latitude Leads Lead #1 Retail Field Representative Lead 1: Guidant Model Lead 1: [id number] Serial# Lead 1: [id number] Date Implanted Lead 1: 05/10/09 Position Lead 1: RV Diagnostics Pacing % RV Pacin Arrhythmias Non-Sust Episodes: 1,339 Measurements Battery Charge Time (Sec): 10.7 Predicted Remaining Longevity (months or years): 5 years RV Measurements Signal Amplitude (mV): 8.2 Impedance (Ohms): 541 Shock Impedance (Ohms): 37 Tachy Settings Ventricular Fibrillation Detect Rate: 200 bpm Faster VT Detect Rate: 170 bpm Slower VT Detect Rate: 150 bpm Tachyarrhythmia Therapies Ventricular Fibrillation Therapy: Shock therapy Initial shock: 23 Joules Final shock: 41 Joules. Fast Ventricular Tachycardia Therapies: Antitachycardia pacing and shock therapy Initial shock: 23 Joules Final shock: 41 Joules. Slow Ventricular Tachycardia Therapies: Monitor Only [place] Settings Ventricular Fibrillation Detect Rate: 200 bpm Faster VT Detect Rate: 170 bpm Slower VT Detect Rate: 150 bpm Tachyarrhythmia Therapies Ventricular Fibrillation Therapy: Shock therapy Initial shock: 23 Joules Final shock: 41 Joules. Fast Ventricular Tachycardia Therapies: Antitachycardia pacing and shock therapy Initial shock: 23 Joules Final shock: 41 Joules. Slow Ventricular Tachycardia Therapies: Monitor Only Billing Codes ICD Device Billing: ICD Dev Interrogate (Rmt) Assessment AND Plan Problems 1. Status post implantation of automatic cardioverter/defibrillator (AICD) Z95.810 2. Ischemic cardiomyopathy I25.5 3. 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 Atherosclerosis of coronary artery of wiyot heart without angina pectoris I25.10 06/13/17 1429 <Electronically signed by Kelly Parker > Date Kelly Parker 06/22/17 1408<Electronically signed by Salvador Conn MD> [facility] Signature: Date (if applicable) Salvador Conn MD CC: PROTHROMBIN TIME W/INR Collected: 06/15/2017 Status: F Source: FAISAL 1:00 PM [facility] REPOSITORY TYPE CODE TESTS RESULT OUT OF RANGE REFERENCE UNITS LAB L300.4150 11.7-14.9 SECONDS High PROTIME 27.3 LAB L300.4200 Normal INR 2.5 Performed By: #### L300.3900 #### [facility] [address] [place], [address] MICROALB:CREAT Collected: 06/07/2017 Status: F Source: FAISAL RATIO,RANDOM UR 10:45 AM [facility] REPOSITORY TYPE CODE TESTS RESULT OUT OF RANGE REFERENCE UNITS LAB L501.1200 NO RANGE EST. mg/dL Normal UR CREAT 84.80 LAB L502.0500 NO RANGE EST. mg/L Normal 41.5 MICROALBUMIN ,UR LAB L502.0600 <30 mg/g CRE mg/g CRE High 48.9 MALB:CREAT Performed By: #### L502.0250 #### [facility] [address] [place], [address] BASIC METABOLIC Collected: 06/07/2017 Status: F Source: FAISAL PROFILE (BMP) 10:45 AM [facility] REPOSITORY TYPE CODE TESTS RESULT OUT OF RANGE REFERENCE UNITS LAB L501.0100 74-106 mg/dL Normal GLU 105 Result Comment: Fasting Glucose result from 100 to 125 mg/dL suggests IMPAIRED HOMEOSTASIS per A.D.A. criteria. Please note revised GLUCOSE reference range effective 2017. LAB L501.1000 7-18 mg/dL High BUN 33 LAB L501.1100 0.55-1.02 mg/dL High CREAT,SERUM 1.96 Result Comment: The validity of the calculated GFR AND GFRAA in patients over 70 years has not been determined. Clinical correlation is essential. LAB L501.1110 >60 mL/min Low EST GFR 26 Result Comment: Non- GFR Calc LAB L501.1115 >60 mL/min Low EST GFR - AA 31 Result Comment: GFR Calc LAB L501.1300 10-20 RATIO Normal BUN/CRE 16.8 LAB L501.2200 8.5-10.1 mg/dL CA Normal 8.5 LAB L501.5300 136-145 mmol/L NA Normal 142 LAB L501.5600 3.5-5.1 mmol/L K Normal 4.0 LAB L501.5900 98-107 mmol/L CL Normal 106 LAB L501.6100 21.0-32.0 mmol/L Normal CO2 25.0 LAB L501.6200 5-15 Normal GAP 11 Performed By: #### L500.2500, L500.3400 #### [facility] [address] [place], [place], [address] LIVER PROFILE Collected: 06/07/2017 Status: F Source: FAISAL 10:45 AM [facility] REPOSITORY TYPE CODE TESTS RESULT OUT OF RANGE REFERENCE UNITS LAB L501.1500 6.4-8.2 g/dL Normal T PROT 6.7 LAB L501.1800 3.2-5.0 g/dL Normal ALB 3.4 LAB L501.1950 2.2-4.2 g/dL Normal GLOB 3.3 LAB L501.4100 15-37 U/L Low AST 14 LAB L501.4305 45-117 U/L Normal ALK P 101 LAB L501.4405 13-56 U/L Normal ALT 16 Result Comment: Please note revised ALT reference range effective 2017. LAB L501.4600 0.20-1.00 mg/dL Normal T BILI 0.80 LAB L501.4700 0.00-0.30 mg/dL Normal D BILI 0.24 Performed By: #### L500.2500, L500.3400 #### [facility] [address], [place], [address] PROTHROMBIN TIME W/INR Collected: 05/25/2017 Status: F Source: FAISAL 1:18 PM [facility] REPOSITORY TYPE CODE TESTS RESULT OUT OF RANGE REFERENCE UNITS LAB L300.4150 11.7-14.9 SECONDS High PROTIME 23.0 LAB L300.4200 Normal INR 2.1 Performed By: #### L300.3900 #### [facility] [address] [place], [place], [address] PROTHROMBIN TIME W/INR Collected: 05/11/2017 Status: F Source: IONE 1:16 PM [facility] REPOSITORY TYPE CODE TESTS RESULT OUT OF RANGE REFERENCE UNITS LAB L300.4150 11.7-14.9 SECONDS High PROTIME 22.2 LAB L300.4200 Normal INR 2.0 Performed By: #### L300.3900 #### [facility] [address] [place], [address] PROTHROMBIN TIME W/INR Collected: 04/27/2017 Status: F Source: FAISAL 1:16 PM [facility] REPOSITORY TYPE CODE TESTS RESULT OUT OF RANGE REFERENCE UNITS LAB L300.4150 11.7-14.9 SECONDS High PROTIME 25.0 LAB L300.4200 Normal INR 2.4 Performed By: #### L300.3900 #### [facility] [address] [place], [address] THYROID STIM HORMONE Collected: 04/27/2017 Status: F Source: FAISAL (TSH) 1:15 PM [facility] REPOSITORY TYPE CODE TESTS RESULT OUT OF RANGE REFERENCE UNITS LAB L501.9520 0.358-3.74 uIU/mL Normal TSH 1.84 Performed By: #### L501.9520, L506.0400 #### [facility] [address] [place], [address] T4 FREE DIRECT Collected: 04/27/2017 Status: F Source: FAISAL 1:15 PM [facility] REPOSITORY TYPE CODE TESTS RESULT OUT OF REFERENCE UNITS RANGE LAB L506.0400 0.76-1.46 ng/dL High T4 FREE 1.59 DIRECT Performed By: #### L501.9520, L506.0400 #### [facility] [address] [place], [address] ALLERGIES ALLERGIES DATE TYPE / CODE NAME / CODE REACTION SEVERITY SOURCE 11/28/2017 Drug erythromycin Vomiting Unknown [place] Allergy/416 base/[id number](RXN [facility]40[facility]) Repository 11/28/2017 Drug meperidine/[id number] Vomiting Unknown [place] Allergy/416 20(RXNORM) [facility] 965581([facility] CT) Repository ENCOUNTERS ENCOUNTERS ADMIT/DISCHARGE ACCOUNT ADMITTING ENCOUNTER LOCATION SOURCE NUMBER CLASS 04/22/2018 [id number] Ambulatory [place] 7 [facility] ing:LAB.FUTUR Repository E 04/17/2018/ [id number] Ambulatory BMSBuilding:B [place] 9 3 [facility] Hospital Repository 04/02/2018 [id number] Ambulatory [place] 6 [facility] ing:LAB Repository 03/14/2018/ [id number] Ambulatory [place] Faisal 8 9 [facility] ing:LAB Repository 02/14/2018/ [id number] Ambulatory [place] Faisal 8 4 [facility] ing:LAB Repository 01/24/2018/ [id number] Ambulatory [place] Faisal 8 2 [facility] Hospital ing:LAB Repository 01/22/2018 [id number] Ambulatory [place] [facility] 3 [facility] ing:LAB.FUTUR Repository E 01/14/2018 [id number] Ambulatory Faisal [place] 4 [facility] Hospital ing:MFPLAB Repository 01/03/2018 [id number] Ambulatory [place] 1 [facility] ing:US Repository 01/02/2018/ [id number] Ambulatory BMSBuilding:B [place] 8 0 [facility] Repository 12/27/2017/ [id number] Ambulatory Faisal Fais[place] 8 6 [facility] ing:LAB Repository 12/26/2017 [id number] Ambulatory [place] 0 [facility] Hospital ing:LAB.FUTUR Repository E 12/25/2017 [id number] Ambulatory [place] [facility]aisal 8 [facility] ing:US Repository 12/25/2017 [id number] Ambulatory [place] 6 [facility] ing:POLAB3 Repository 12/07/2017 [id number] Ambulatory [place] 7 [facility] ing:CVS Repository 12/07/2017 [id number] Ambulatory BMSBuilding:W Faisal 4 [facility] Repository 12/06/2017 [id number] Ambulatory Faisal [place] 8 [facility] Hospital ing:MFPLAB Repository 11/28/2017/ [id number] Emergency Faisal Faisal 8 1 [facility] ing:ED Repository 11/22/2017/ [id number] Ambulatory [place] 8 2 [facility] ing:LAB Repository 11/22/2017/ [id number] Ambulatory BMSBuilding:B [place] 8 8 [facility] Repository 11/15/2017 [id number] Ambulatory [place] 2 [facility] ing:OLS.AVED Repository 11/12/2017 [id number] Ambulatory [place] 3 [facility] ing:OLS.AVEC Repository 11/05/2017/ [id number] Adarsh Gipson Inpatient Faisal Faisal 8 5 [facility] ing:PCURoom: Repository NWN077Imy: 1 11/05/2017 [id number] Adarsh Gipson Ambulatory BMSBuilding:B [place] 7 [facility] Repository 11/05/2017 [id number] Adarsh Gipson Ambulatory BMSBuilding:B [place] 4 [facility] Repository 11/05/2017 [id number] Adarsh Gipson Ambulatory BMSBuilding:B [place] 3 [facility] Repository 11/05/2017 [id number] Adarsh Gipson Ambulatory BMSBuilding:B [place] 0 [facility] Repository 11/05/2017 [id number] Adarsh Gipson Ambulatory BMSBuilding:B [place] 2 [facility] Repository 11/05/2017 [id number] Ambulatory BMSBuilding:B [place] 3 [facility] Repository 11/05/2017/ [id number] Ambulatory BMSBuilding:B Faisal 8 7 [facility] Repository 10/31/2017 [id number] Ambulatory BMSBuilding:B [place] 7 [facility] Repository 10/30/2017/ [id number] Ambulatory Faisal [place] 8 9 [facility] ing:LAB Repository 09/28/2017/ [id number] Ambulatory [place] Faisal 8 5 [facility] Hospital ing:LAB Repository 09/26/2017/ [id number] Ambulatory BMSBuilding:B Faisal 8 8 [facility] Repository 09/25/2017 [id number] Ambulatory Faisal Faisal 8 [facility] ing:LAB Repository 09/24/2017/ [id number] Ambulatory BMSBuilding:B [place] 8 3 [facility] Repository 09/13/2017/ [id number] Ambulatory BMSBuilding:B [place] 8 6 [facility] Repository 09/06/2017 [id number] Ambulatory [place] 7 [facility] ing:MFPLAB Repository 08/24/2017/ [id number] Ambulatory [place] 8 5 [facility] ing:LAB Repository 07/13/2017/ [id number] Ambulatory [place] Faisal 8 0 [facility] Hospital ing:LAB Repository 06/29/2017/ [id number] Ambulatory Faisal Faisal 8 2 [facility] Hospital ing:CR Repository 06/26/2017 [id number] Ambulatory Faisal [place] 9 [facility] Hospital ing:LAB Repository 06/15/2017 [id number] Ambulatory Faisal [place] 7 [facility] Hospital ing:LAB Repository 06/07/2017 [id number] Ambulatory Faisal [place] 6 [facility] ing:MFPLAB Repository 05/30/2017/ [id number] Ambulatory [place] 8 6 [facility] ing:CR Repository 05/25/2017 [id number] Ambulatory [place] Faisal 0 [facility] ing:LAB Repository 05/21/2017/ [id number] Ambulatory BMSBuilding:B [place] 8 3 [facility] Repository 05/11/2017 [id number] Ambulatory [place] 2 [facility] Hospital ing:LAB Repository 04/30/2017/ [id number] Ambulatory Faisal [place] 8 2 [facility] ing:CR Repository 04/27/2017 [id number] Ambulatory [place] 6 [facility] ing:LAB Repository PAYERS PAYERS ENCOUNTER GUARANTOR PAYER SUBSCRIBER SOURCE 04/22/2018 KEREN [id number] Primary [address] Insurance:MEDICARE RITCHEYDOB: [address] [address]Ibj: PART A [facility] [id number] Hospital () Number: Repository [id number] Date:2018-04-22 04/22/2018 Secondary KEREN E [place] Insurance:HUMANA RITCHEYDOB: [facility] [id number] Hospital Number: Repository [id number] Date:2920-15-51IX [address] [address]GG: 04/22/2018 Tertiary NOT GIVENUNK Faisal Insurance:SELF PAY [facility] Number: Effective Repository Date:2018-04-22 04/17/2018 KEREN [id number] Primary KEREN E Faisal [address] Insurance:MEDICARE RITCHEYDOB: [address] [address]Cjg: PART A [facility] [id number] Hospital () Number: Repository [id number] Date:2018-01-02 04/17/2018 Secondary KEREN E [place] Insurance:HUMANA RITCHEYDOB: [facility] [id number] Hospital Number: Repository [id number] Date:5571-39-37QV [address] [address]XU: 04/17/2018 Tertiary NOT GIVENUNK Faisal Insurance:SELF PAY [facility] Number: Effective Repository Date:2018-04-16 04/02/2018 KEREN [id number] Primary KEREN E Faisal [address] Insurance:MEDICARE RITCHEYDOB: [address] [address]Emn: PART A [facility] [id number] Hospital () Number: Repository [id number] Date:2017-07-13 04/02/2018 Secondary KEREN E Faisal Insurance:HUMANA RITCHEYDOB: [facility] [id number] Hospital Number: Repository [id number] Date:9773-27-27ZQ [address] [address]MH: 04/02/2018 Tertiary NOT GIVENUNK Faisal Insurance:SELF PAY [facility] Number: Effective Repository Date:2018-04-01 03/14/2018 KEREN E [id number] Primary KEREN E [place] [address] Insurance:MEDICARE RITCHEYDOB: [address] [address]Src: PART A [facility] [id number] Hospital () Number: Repository [id number] Date:2017-07-13 03/14/2018 Secondary KEREN E [place] Insurance:HUMANA RITCHEYDOB: [facility] [id number] Hospital Number: Repository [id number] Date:[id number] [address]LU: 03/14/2018 Tertiary NOT GIVENUNK Faisal Insurance:SELF PAY [facility] Number: Effective Repository Date:2018-03-04 02/14/2018 KEREN Tiff [id number] Primary KEREN E Faisalcassandra [address] Insurance:MEDICARE RITCHEYDOB: [address] [address]Qat: PART A [facility] [id number] Hospital () Number: Repository [id number] Date:2017-07-13 02/14/2018 Secondary KEREN E [place] Insurance:HUMANA RITCHEYDOB: [facility] [id number] Hospital Number: Repository [id number] Date:0264-84-51XC [address] [address]TK: 02/14/2018 Tertiary NOT GIVENUNK [place] Insurance:SELF PAY [facility] Number: Effective Repository Date:2018-01-31 01/24/2018 KEREN [id number] Primary KEREN E Faisal [address] Insurance:MEDICARE RITCHEYDOB: Community [address] [place] [address]Tlq: PART A [facility] [id number] Hospital () Number: Repository [id number] Date:2017-07-13 01/24/2018 Secondary KEREN E Faisal Insurance:HUMANA RITCHEYDOB: [facility] [id number] Hospital Number: Repository [id number] Date:1214-67-92HP [address] [address]HV: 01/24/2018 Tertiary NOT GIVENUNK Faisal Insurance:SELF PAY [facility] Number: Effective Repository Date:2018-01-02 01/22/2018 KEREN [id number] Primary KEREN E [place] [address] Insurance:MEDICARE RITCHEYDOB: [address] [address]Rsc: PART A [facility] [id number] Hospital () Number: Repository [id number] Date:2018-01-22 01/22/2018 Secondary KEREN E Faisal Insurance:HUMANA RITCHEYDOB: [facility] [id number] Hospital Number: Repository [id number] Date:3332-83-30XR [address] [address]TB: 01/22/2018 Tertiary NOT GIVENUNK [place] Insurance:SELF PAY [facility] Hospital Number: Effective Repository Date:2018-01-22 01/14/2018 KEREN [id number] Primary KERNE E [place] [address] Insurance:MEDICARE RITCHEYDOB: [address] [address]Bdo: PART A [facility] [id number] Hospital () Number: Repository [id number] Date:2018-01-14 01/14/2018 Secondary KEREN E Faisal Insurance:HUMANA RITCHEYDOB: [facility] [id number] Hospital Number: Repository [id number] Date:2430-34-42YA [address] [address]LM: 01/14/2018 Tertiary NOT GIVENUNK [place] Insurance:SELF PAY [facility] Number: Effective Repository Date:2018-01-14 01/03/2018 KEREN E [id number] Primary KEREN E Faisal [address] Insurance:MEDICARE RITCHEYDOB: [address] [address]Uem: PART A [facility] [id number] Hospital () Number: Repository [id number] Date:2018-01-03 01/03/2018 Secondary KEREN E [place] Insurance:HUMANA RITCHEYDOB: [facility] [id number] Hospital Number: Repository [id number] Date:5248-37-69NN [address] [address]JV: 01/03/2018 Tertiary NOT GIVENUNK [place] Insurance:SELF PAY [facility] Number: Effective Repository Date:2018-01-03 01/02/2018 KEREN [id number] Primary KEREN E [place] [address] Insurance:MEDICARE RITCHEYDOB: [address] [address]Eiu: PART A [facility] [id number] Hospital () Number: Repository [id number] Date:2017-09-20 01/02/2018 Secondary KEREN E Faisal Insurance:HUMANA RITCHEYDOB: [facility] [id number] Hospital Number: Repository [id number] Date:0307-81-91HW [address] [address]NK: 01/02/2018 Tertiary NOT GIVENUNK [place] Insurance:SELF PAY [facility] Number: Effective Repository Date:2018-01-02 12/27/2017 KEREN E [id number] Primary KEREN E Faisal [address] Insurance:MEDICARE RITCHEYDOB: [address] [address]Kct: PART A [facility] [id number] Hospital () Number: Repository [id number] Date:2017-07-13 12/27/2017 Secondary KEREN E Faisal Insurance:HUMANA RITCHEYDOB: [facility] [id number] Hospital Number: Repository [id number] Date:1259-37-56LJ [address] [address]OF: 12/27/2017 Tertiary NOT GIVENUNK Faisal Insurance:SELF PAY [facility] Number: Effective Repository Date:2017-12-04 12/26/2017 KEREN E [id number] Primary KEREN E [place] [address] Insurance:MEDICARE RITCHEYDOB: [address] [address]Hfj: PART A [facility] [id number] Hospital () Number: Repository [id number] Date:2017-12-26 12/26/2017 Secondary KEREN E Faisal Insurance:HUMANA RITCHEYDOB: [facility] [id number] Hospital Number: Repository [id number] Date:3836-01-09VF[address] [address]PZ: 12/26/2017 Tertiary NOT GIVENUNK [place] Insurance:SELF PAY [facility] Number: Effective Repository Date:2017-12-26 12/25/2017 KEREN E [id number] Primary KEERN E [place] [address] Insurance:MEDICARE RITCHEYDOB: [address] [address]Vjn: PART A [facility] [id number] Hospital () Number: Repository [id number] Date:2017-12-25 12/25/2017 Secondary KEREN E Faisal Insurance:HUMANA RITCHEYDOB: [facility] [id number] Hospital Number: Repository [id number] Date:1580-44-40EA [address] [address]SR: 12/25/2017 Tertiary NOT GIVENUNK Faisal Insurance:SELF PAY [facility] Number: Effective Repository Date:2017-12-25 12/25/2017 KEREN [id number] Primary KEREN E Faisal [address] Insurance:MEDICARE RITCHEYDOB: [address] [address]Nqg: PART A [facility] [id number] Hospital () Number: Repository [id number] Date:2017-12-25 12/25/2017 Secondary KEREN E Faisal Insurance:HUMANA RITCHEYDOB: [facility] [id number] Hospital Number: Repository [id number] Date:7136-97-72II[address] [address]ZK: 12/25/2017 Tertiary NOT GIVENUNK Faisal Insurance:SELF PAY [facility] Number: Effective Repository Date:2017-12-25 12/07/2017 KEREN [id number] Primary KEREN E Faisal [address] Insurance:MEDICARE RITCHEYDOB: [address] [address]Jnm: PART A [facility] [id number] Hospital () Number: Repository [id number] Date:2017-11-22 12/07/2017 Secondary KEREN E [place] Insurance:HUMANA RITCHEYDOB: [facility] [id number] Hospital Number: Repository [id number] Date:0964-92-32XJ[address] [address]KD: 12/07/2017 Tertiary NOT GIVENUNK Faisal Insurance:SELF PAY [facility] Number: Effective Repository Date:2017-11-22 12/07/2017 KERENMARLENI [id number] Primary KEREN E [place] [address] Insurance:MEDICARE RITCHEYDOB: [address] [address]Kmw: PART A [facility] [id number] Hospital () Number: Repository [id number] Date:2017-11-22 12/07/2017 Secondary KEREN E [place] Insurance:HUMANA RITCHEYDOB: [facility] [id number] Hospital Number: Repository [id number] Date:8787-67-48HG [address] [address]MY: 12/07/2017 Tertiary NOT GIVENUNK [place] Insurance:SELF PAY [facility] Number: Effective Repository Date:2017-12-07 12/06/2017 KEREN E [id number] Primary KEREN E [place] [address] Insurance:MEDICARE RITCHEYDOB: [address] [address]Kdn: PART A [facility] [id number] Hospital () Number: Repository [id number] Date:2017-12-06 12/06/2017 Secondary KEREN E [place] Insurance:HUMANA RITCHEYDOB: [facility] [id number] Hospital Number: Repository [id number] Date:9497-83-72XW[address] [address] [address]JA: 12/06/2017 Tertiary NOT GIVENUNK Faisal Insurance:SELF PAY [facility] Number: Effective Repository Date:2017-12-06 11/28/2017 KEREN E [id number] Primary KEREN E Faisal [address] Insurance:MEDICARE RITCHEYDOB: [address] [address]Olw: PART A [facility] [id number] Hospital () Number: Repository [id number] Date:2017-11-28 11/28/2017 Secondary KEREN E Faisal Insurance:HUMANA RITCHEYDOB: [facility] [id number] Hospital Number: Repository [id number] Date:7805-87-44KH [address] [place] [address]BU: 11/28/2017 Tertiary NOT GIVENUNK Faisal Insurance:SELF PAY [facility] Number: Effective Repository Date:2017-11-28 11/22/2017 KEREN Tiff [id number] Primary NOT GIVENUNK Faisal [address] Insurance:SELF PAY [address] [address]Aey: [facility] () Number: Effective Repository Date:2017-11-01 11/22/2017 KEREN E [id number] Primary KEREN E Faisal [address] Insurance:MEDICARE RITCHEYDOB: [address] [address]Irn: PART A [facility] [id number] Hospital () Number: Repository [id number] Date:2017-11-08 11/22/2017 Secondary KEREN E [place] Insurance:HUMANA RITCHEYDOB: [facility] [id number] Hospital Number: Repository [id number] Date:0059-37-52ZQ [address] [address]BI: 11/22/2017 Tertiary NOT GIVENUNK [place] Insurance:SELF PAY [facility] Number: Effective Repository Date:2017-11-22 11/15/2017 KEREN E [id number] Primary NOT GIVENUNK Faisal [address] Insurance:SELF PAY [address] [address]Sut: [facility] () Number: Effective Repository Date:2017-11-15 11/12/2017 KEREN E [id number] Primary NOT GIVENUNK [place] [address] Insurance:SELF PAY [address] [address]Bfa: [facility] () Number: Effective Repository Date:2017-11-12 11/05/2017 KEREN E [id number] Primary KEREN E Faisal [address] Insurance:MEDICARE RITCHEYDOB: [address] [address]Kzp: PART A [facility] [id number] Hospital () Number: Repository [id number] Date:2017-11-05 11/05/2017 Secondary KEREN E [place] Insurance:HUMANA RITCHEYDOB: [facility] [id number] Hospital Number: Repository [id number] Date:8912-01-90FF [address] [address]OU: 11/05/2017 Tertiary NOT GIVENUNK [place] Insurance:SELF PAY [facility] Number: Effective Repository Date:2017-11-05 11/05/2017 KEREN E [id number] Primary KEREN E Faisal [address] Insurance:MEDICARE RITCHEYDOB: [address] [address]Zhb: PART A [facility] [id number] Hospital () Number: Repository [id number] Date:2017-11-05 11/05/2017 Secondary KEREN E Faisal Insurance:HUMANA RITCHEYDOB: [facility] [id number] Hospital Number: Repository [id number] Date:5247-15-30TR[address] [address]NB: 11/05/2017 Tertiary NOT GIVENUNK [place] Insurance:SELF PAY [facility] Number: Effective Repository Date:2017-11-05 11/05/2017 KEREN E [id number] Primary KEREN E Faisal [address] Insurance:MEDICARE RITCHEYDOB: [address] [address]Uio: PART A [facility] [id number] Hospital () Number: Repository [id number] Date:2017-11-05 11/05/2017 Secondary KEREN E Faisal Insurance:HUMANA RITCHEYDOB: [facility] [id number] Hospital Number: Repository [id number] Date:1149-08-15MX [address] [address]FG: 11/05/2017 Tertiary NOT GIVENUNK [place] Insurance:SELF PAY [facility] Number: Effective Repository Date:2017-11-05 11/05/2017 KEREN [id number] Primary KEREN E [place] [address] Insurance:MEDICARE RITCHEYDOB: [address] [address]Eyh: PART A [facility] [id number] Hospital () Number: Repository [id number] Date:2017-11-05 11/05/2017 Secondary KEREN E Faisal Insurance:HUMANA RITCHEYDOB: [facility] [id number] Hospital Number: Repository [id number] Date:3011-99-70HB [address] [address]FJ: 11/05/2017 Tertiary NOT GIVENUNK [place] Insurance:SELF PAY [facility] Number: Effective Repository Date:2017-11-05 11/05/2017 KEREN Tiff [id number] Primary KEREN E Faisal [address] Insurance:MEDICARE RITCHEYDOB: [address] [address]Qgq: PART A [facility] [id number] Hospital () Number: Repository [id number] Date:2017-11-05 11/05/2017 Secondary KEREN E Faisal Insurance:HUMANA RITCHEYDOB: [facility] [id number] Hospital Number: Repository [id number] Date:2902-85-38IZ [address] [address]XP: 11/05/2017 Tertiary NOT GIVENUNK [place] Insurance:SELF PAY [facility] Number: Effective Repository Date:2017-11-05 11/05/2017 KEREN Tiff [id number] Primary KEREN E [place] [address] Insurance:MEDICARE RITCHEYDOB: [address] [address]Xwr: PART A [facility] [id number] Hospital () Number: Repository [id number] Date:2017-11-05 11/05/2017 Secondary KEREN E [place] Insurance:HUMANA RITCHEYDOB: [facility] [id number] Hospital Number: Repository [id number] Date:5617-53-51AA[address] [address]NM: 11/05/2017 Tertiary NOT GIVENUNK Faisal Insurance:SELF PAY [facility] Number: Effective Repository Date:2017-11-05 11/05/2017 KEREN E [id number] Primary KEREN E [place] [address] Insurance:MEDICARE RITCHEYDOB: [address] [address]Vrl: PART A [facility] [id number] Hospital () Number: Repository [id number] Date:2017-11-05 11/05/2017 Secondary KEREN E Faisal Insurance:HUMANA RITCHEYDOB: [facility] [id number] Hospital Number: Repository [id number] Date:1286-99-58HV[address] [address]SK: 11/05/2017 Tertiary NOT GIVENUNK Faisal Insurance:SELF PAY [facility] Number: Effective Repository Date:2017-11-05 11/05/2017 KEREN [id number] Primary KEREN E Faisal [place] Insurance:MEDICARE RITCHEYDOB: [facility] PART [facility] [id number] [address]Udx: Number: Repository () [id number] Date:2017-04-23 11/05/2017 Secondary KEREN E Faisal Insurance:HUMANA RITCHEYDOB: [facility] [id number] Hospital Number: Repository [id number] Date:1515-69-02SM [address] [address]MC: 11/05/2017 Tertiary NOT GIVENUNK Faisal Insurance:SELF PAY [facility] Effective Rep[facility] Date:2017-11-05 10/31/2017 KEREN [id number] Primary KEREN E Faisal [address] Insurance:MEDICARE RITCHEYDOB: Community [address] [place] [id number]: PART A [facility] [id number] Hospital () Number: Repository [id number] Date:2017-10-31 10/31/2017 Secondary KEREN E [place]ais[place] Insurance:HUMANA RITCHEYDOB: [facility] [id number] Hospital Number: Repository [id number] Date:2950-86-82YD[address] [address]PE: 10/31/2017 Tertiary NOT GIVENUNK Faisal Insurance:SELF PAY [facility] Number: Effective Repository Date:2017-10-31 10/30/2017 KEREN [id number] Primary KEREN E Faisal [address] Insurance:MEDICARE RITCHEYDOB: [address] [address]Ekk: PART A [facility] [id number] Hospital () Number: Repository [id number] Date:2017-07-13 10/30/2017 Secondary KEREN E [place] Insurance:HUMANA RITCHEYDOB: [facility] [id number] Hospital Number: Repository [id number] Date:4346-74-12II [address] [address]RH: 10/30/2017 Tertiary NOT GIVENUNK [place] Insurance:SELF PAY [facility] Number: Effective Repository Date:2017-09-28 09/28/2017 KEREN [id number] Primary KEREN E Faisal [address] Insurance:MEDICARE RITCHEYDOB: Community [address] [place] [id number]: PART A [facility] [id number] Hospital () Number: Repository [id number] Date:2017-07-13 09/28/2017 Secondary KEREN E Faisal Insurance:HUMANA RITCHEYDOB: [facility] [id number] Hospital Number: Repository [id number] Date:1434-43-05VY [address] [address]KX: 09/28/2017 Tertiary NOT GIVENUNK [place] Insurance:SELF PAY [facility] Number: Effective Repository Date:2017-08-30 09/26/2017 KEREN [id number] Primary KEREN E [place] [address] Insurance:MEDICARE RITCHEYDOB: [address] [address]Qzi: PART A [facility] [id number] Hospital () Number: Repository [id number] Date:2017-09-25 09/26/2017 Secondary KEREN E [place] Insurance:HUMANA RITCHEYDOB: [facility] [id number] Hospital Number: Repository [id number] Date:3279-19-60HN [address] [address]YC: 09/26/2017 Tertiary NOT GIVENUNK [place] Insurance:SELF PAY [facility] Number: Effective Repository Date:2017-09-26 09/25/2017 KEREN [id number] Primary KEREN E [place] [address] Insurance:MEDICARE RITCHEYDOB: [address] [address]Zck: PART A [facility] [id number] Hospital () Number: Repository [id number] Date:2017-09-25 09/25/2017 Secondary KEREN E [place] Insurance:HUMANA RITCHEYDOB: [facility] [id number] Hospital Number: Repository [id number] Date:6121-30-10UR [address] [address]KD: 09/25/2017 Tertiary NOT GIVENUNK [place] Insurance:SELF PAY [facility] Number: Effective Repository Date:2017-09-25 09/24/2017 KEREN Tiff [id number] Primary KEREN E Faisal [address] Insurance:MEDICARE RITCHEYDOB: [address] [address]Xlv: PART A [facility] [id number] Hospital () Number: Repository [id number] Date:2017-09-24 09/24/2017 Secondary KEREN E Faisal Insurance:HUMANA RITCHEYDOB: [facility] [id number] Hospital Number: Repository [id number] Date:1960-80-60ZC [address] [address]PQ: 09/24/2017 Tertiary NOT GIVENUNK Faisal Insurance:SELF PAY [facility] Number: Effective Repository Date:2017-09-24 09/13/2017 KEREN E [id number] Primary KEREN E [place] [address] Insurance:MEDICARE RITCHEYDOB: [address] [address]Hai: PART A [facility] [id number] Hospital () Number: Repository [id number] Date:2017-06-13 09/13/2017 Secondary KEREN E Faisal Insurance:HUMANA RITCHEYDOB: [facility] [id number] Hospital Number: Repository [id number] Date:4385-13-03CD [address] [address]CL: 09/13/2017 Tertiary NOT GIVENUNK [place] Insurance:SELF PAY [facility] Number: Effective Repository Date:2017-09-13 09/06/2017 KEREN E [id number] Primary KEREN E Faisal [address] Insurance:MEDICARE RITCHEYDOB: [address] [address]Hnd: PART A [facility] [id number] Hospital () Number: Repository [id number] Date:2017-09-06 09/06/2017 Secondary KEREN E [place] Insurance:HUMANA RITCHEYDOB: [facility] [id number] Hospital Number: Repository [id number] Date:8386-82-12ZF[address] [address]ED: 09/06/2017 Tertiary NOT GIVENUNK [place] Insurance:SELF PAY [facility] Number: Effective Repository Date:2017-09-06 08/24/2017 KEREN [id number] Primary KEREN E Faisal [address] Insurance:MEDICARE RITCHEYDOB: [address] [address]Zss: PART A [facility] [id number] Hospital () Number: Repository [id number] Date:2017-07-13 08/24/2017 Secondary KEREN E Fais[place] Insurance:HUMANA RITCHEYDOB: [facility] [id number] Hospital Number: Repository [id number] Date:3357-34-78CT[address] [address]TG: 08/24/2017 Tertiary NOT GIVENUNK [place] Insurance:SELF PAY [facility] Hospital Number: Effective Repository Date:2017-07-31 07/13/2017 KEREN [id number] Primary KEREN E Faisal [address] Insurance:MEDICARE RITCHEYDOB: [address] [address]Fwy: PART A [facility] [id number] Hospital () Number: Repository [id number] Date:2017-07-13 07/13/2017 Secondary KEREN E Fais[place] Insurance:HUMANA RITCHEYDOB: [facility] [id number] Hospital Number: Repository [id number] Date:5336-64-76MD[address] [address]GF: 07/13/2017 Tertiary NOT GIVENUNK [place] Insurance:SELF PAY [facility] Number: Effective Repository Date:2017-07-13 06/29/2017 KEREN [id number] Primary KEREN E [place] [address] Insurance:MEDICARE RITCHEYDOB: [address] [address]Hif: PART A [facility] [id number] Hospital () Number: Repository [id number] Date:2017-03-09 06/29/2017 Secondary KEREN E [place] Insurance:HUMANA RITCHEYDOB: [facility] [id number] Hospital Number: Repository [id number] Date:4768-49-68TB [address] [address]DO: 06/29/2017 Tertiary NOT GIVENUNK [place] Insurance:SELF PAY [facility] Number: Effective Repository Date:2017-05-31 06/26/2017 KEREN [id number] Primary KEREN E [place] [address] Insurance:MEDICARE RITCHEYDOB: [address] [address]Gnh: PART A [facility] [id number] Hospital () Number: Repository [id number] Date:2017-06-26 06/26/2017 Secondary KEREN E [place] Insurance:HUMANA RITCHEYDOB: [facility] [id number] Hospital Number: Repository [id number] Date:6169-67-34BS[address] [address]NN: 06/26/2017 Tertiary NOT GIVENUNK [place] Insurance:SELF PAY [facility] Number: Effective Repository Date:2017-06-26 06/15/2017 KEREN Matthew [id number] Primary KEREN E [place] [address] Insurance:MEDICARE RITCHEYDOB: [address] [address]Oak: PART A [facility] [id number] Hospital () Number: Repository [id number] Date:2017-06-15 06/15/2017 Secondary KEREN E [place] Insurance:HUMANA RITCHEYDOB: [facility] [id number] Hospital Number: Repository [id number] Date:8864-15-08FT [address] [place] [address]ZB: 06/15/2017 Tertiary NOT GIVENUNK [place] Insurance:SELF PAY [facility] Number: Effective Repository Date:2017-06-15 06/07/2017 KEREN [id number] Primary KEREN E Faisal [address] Insurance:MEDICARE RITCHEYDOB: [address] [address]Ixx: PART A [facility] [id number] Hospital () Number: Repository [id number] Date:2017-06-07 06/07/2017 Secondary KEREN E Faisal Insurance:HUMANA RITCHEYDOB: [facility] [id number] Hospital Number: Repository [id number] Date:8961-08-51RZ [address] [address]IL: 06/07/2017 Tertiary NOT GIVENUNK Faisal Insurance:SELF PAY [facility] Number: Effective Repository Date:2017-06-07 05/30/2017 KEREN E [id number] Primary KEREN E Faisal [address] Insurance:MEDICARE RITCHEYDOB: [address] [address]Jxh: PART A [facility] [id number] Hospital () Number: Repository [id number] Date:2017-03-09 05/30/2017 Secondary KEREN E [place] Insurance:HUMANA RITCHEYDOB: [facility] [id number] Hospital Number: Repository [id number] Date:8418-80-01QJ[address] [address]VU: 05/30/2017 Tertiary NOT GIVENUNK [place] Insurance:SELF PAY [facility] Number: Effective Repository Date:2017-05-03 05/25/2017 KEREN E [id number] Primary KEREN E [place] [address] Insurance:MEDICARE RITCHEYDOB: [address] [address]Ubh: PART A [facility] [id number] Hospital () Number: Repository [id number] Date:2017-05-25 05/25/2017 Secondary KEREN E [place] Insurance:HUMANA RITCHEYDOB: [facility] [id number] Hospital Number: Repository [id number] Date:7530-30-17LW [address] [address]KP: 05/25/2017 Tertiary NOT GIVENUNK [place] Insurance:SELF PAY [facility] Number: Effective Repository Date:2017-05-25 05/21/2017 KEREN E [id number] Primary KEREN E [place] [address] Insurance:MEDICARE RITCHEYDOB: [address] [address]Kly: PART A [facility] [id number] Hospital () Number: Repository [id number] Date:2017-03-08 05/21/2017 Secondary KEREN E Fais[place] Insurance:HUMANA RITCHEYDOB: [facility] [id number] Hospital Number: Repository [id number] Date:1619-98-26BR[address] [address]RV: 05/21/2017 Tertiary NOT GIVENUNK [place] Insurance:SELF PAY [facility] Number: Effective Repository Date:2017-03-08 05/11/2017 KEREN E [id number] Primary KEREN E [place] [address] Insurance:MEDICARE RITCHEYDOB: [address] [address]Ylw: PART A [facility] [id number] Hospital () Number: Repository [id number] Date:2017-05-11 05/11/2017 Secondary KEREN E Faisal Insurance:HUMANA RITCHEYDOB: [facility] [id number] Hospital Number: Repository [id number] Date:4064-36-37EU[address] [address]DJ: 05/11/2017 Tertiary NOT GIVENUNK [place] Insurance:SELF PAY [facility] Number: Effective Repository Date:2017-05-11 04/30/2017 KEREN [id number] Primary KEREN E [place] [address] Insurance:MEDICARE RITCHEYDOB: Community [address] [place] [id number]: PART A [facility] [id number] Hospital () Number: Repository [id number] Date:2017-03-09 04/30/2017 Secondary KEREN E [place]ais[place] Insurance:HUMANA RITCHEYDOB: [facility] [id number] Hospital Number: Repository [id number] Date:6983-53-85NU [address] [address]HO: 04/30/2017 Tertiary NOT GIVENUNK [place] Insurance:SELF PAY [facility] Number: Effective Repository Date:2017-04-02 04/27/2017 KEREN [id number] Primary KEREN E Faisal [address] Insurance:MEDICARE RITCHEYDOB: [address] [address]Yij: PART A [facility] [id number] Hospital () Number: Repository [id number] Date:2017-04-27 04/27/2017 Secondary KEREN E [place] Insurance:HUMANA RITCHEYDOB: [facility] [id number] Hospital Number: Repository [id number] Date:4595-23-12PD [address] [address]CK: 04/27/2017 Tertiary NOT GIVENUNK [place] Insurance:SELF PAY [facility] Number: Effective Repository Date:2017-04-27
== END 2018-03-14 16:00 | disposition home or self-care (01) ==
LOC: LAB 15:33
PROVIDERS: Family Provider Family Medicine; PCP Family Medicine; Referring Provider Internal Medicine Cardiovascular Disease; Visit Provider Internal Medicine Cardiovascular Disease
DX: Z79.01 Long term (current) use of 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 (principal)
CPT/HCPCS: 36415; 85610

== ENCOUNTER 2018-04-25 11:55 | Outpatient (RCR) | payer MEDICARE, OTHER, SELFPAY ==
[2018-04-25 12:49] LABS: Hematocrit 38.6 % (37-47); Mean Corp Hgb Conc 31.1 g/gl (32-36); Mean Corpuscular Hgb 27.8 pg (27.0-32.0); Mean Corpuscular Volume 89.4 fL (81-99); Mean Platelet Vol. 9.6 fl (6.2-12.0); Platelet Count 157 K/mm3 (150-450); RBC Distribution Width CV 14.8 % (11.6-14.6); Red Blood Count 4.32 M/mm3 (4.2-5.4); White Blood Count 4.9 K/mm3 (4.4-11.0)
[2018-04-25 12:50] LABS: Scan Indicated on CBC? Y/N NO
[2018-04-25 13:01] LABS: International Normalized Ratio 1.9; Prothrombin Time (Protime)PT. 22.2 SECONDS (11.7-14.9)
[2018-04-25 13:23] LABS: PTHIN 94.3 pg/mL (18.4-80.1)
[2018-04-25 13:30] LABS: Albumin, Serum 3.7 g/dL (3.2-5.0); BUN 32 mg/dL (7-18); BUN/Creat Ratio 17.3 RATIO (10-20); Calcium,Total 8.9 mg/dL (8.5-10.1); Chloride 104 mmol/L (98-107); Creatinine, Serum 1.85 mg/dL (0.55-1.02); EST Glomerular Filtration Rate 28 mL/min (>60); Est Glom Filt Rate - Afr Amer 34 mL/min (>60); Ferritin 73 ng/mL (8-252); Glucose 90 mg/dL (74-106); Iron 54 ug/dL (50-170); Iron Binding Capacity,Total 358 ug/dL (250-450); PERCENT IRON SATURATION 15.1 % (15.0-55.0); Phosphorus 3.7 mg/dL (2.5-4.9); Potassium 4.2 mmol/L (3.5-5.1); Sodium Level 138 mmol/L (136-145)
== END 2018-04-25 12:55 | disposition home or self-care (01) ==
LOC: LAB 11:55
PROVIDERS: Family Provider Family Medicine; PCP Family Medicine; Referring Provider Internal Medicine Cardiovascular Disease; Visit Provider Internal Medicine Nephrology
DX: N18.4 Chronic kidney disease, stage 4 (severe) (principal); D64.9 Anemia, unspecified; I48.91 Unspecified atrial fibrillation; Z79.01 Long term (current) use of 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
CPT/HCPCS: 36415; 80069; 82728; 83540; 83550; 83970; 85027; 85610

== ENCOUNTER 2018-05-09 11:26 | Outpatient (RCR) | payer MEDICARE, OTHER, SELFPAY ==
[2018-05-09 12:01] LABS: International Normalized Ratio 2.7; Prothrombin Time (Protime)PT. 28.8 SECONDS (11.7-14.9)
== END 2018-05-30 14:32 | disposition home or self-care (01) ==
LOC: LAB 11:26
PROVIDERS: Family Provider Family Medicine; PCP Family Medicine; Referring Provider Internal Medicine Cardiovascular Disease; Visit Provider Internal Medicine Cardiovascular Disease
DX: I48.91 Unspecified atrial fibrillation (principal); Z79.01 Long term (current) use of 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
CPT/HCPCS: 85610

== ENCOUNTER → 2018-06-05 10:57 | Outpatient (CLI) | payer MEDICARE, OTHER, SELFPAY ==
[2018-05-13 13:45] VITALS: BMI 30.2
[2018-06-05 12:26] LABS: International Normalized Ratio 2.7; Prothrombin Time (Protime)PT. 28.6 SECONDS (11.7-14.9)
[2018-06-05 12:48] LABS: Anion Gap 11 (5-15); BUN 37 mg/dL (7-18); BUN/Creat Ratio 20.8 RATIO (10-20); Calcium,Total 8.7 mg/dL (8.5-10.1); Chloride 108 mmol/L (98-107); Creatinine, Serum 1.78 mg/dL (0.55-1.02); EST Glomerular Filtration Rate 29 mL/min (>60); Est Glom Filt Rate - Afr Amer 35 mL/min (>60); Glucose 98 mg/dL (74-106); Potassium 4.4 mmol/L (3.5-5.1); Sodium Level 143 mmol/L (136-145)
== END ==
PROVIDERS: Family Provider Family Medicine; PCP Family Medicine; Referring Provider Family Medicine; Visit Provider Family Medicine
DX: N28.9 Disorder of kidney and ureter, unspecified (principal); Z79.01 Long term (current) use of 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
CPT/HCPCS: 36415; 80048; 85610

== ENCOUNTER 2018-06-13 21:39 | Inpatient (IN) | payer MEDICARE, OTHER, SELFPAY ==
[2018-05-13 13:45] VITALS: BMI 30.2
[2018-06-13 21:40] VITALS: BP 120/78; PULSE 116; RESP 18; TEMP 36.3; O2SAT 96; BMI 30.6
--- NOTE | 2018-06-13 22:14 | CT_ITS ---
STUDY: CT ABDOMEN AND PELVIS WITHOUT CONTRAST REASON FOR EXAM: Female, 82 years old. Abdominal pain RADIATION DOSAGE (If Supplied By Facility): CTDIvol = ( 17.46 ) mGy, DLP = ( 902.99 ) mGycm TECHNIQUE: Transaxial images were obtained from the dome of the diaphragm to the symphysis pubis without oral contrast, and without intravenous contrast. Sagittal and coronal images were reconstructed. Individualized dose optimization techniques were used for this CT. COMPARISON: None. FINDINGS: Evaluation limited by lack of IV and oral contrast material. Atelectasis/scarring within the lungs. There is a small left pleural effusion present. Punctate calcified right lower lobe pulmonary nodule likely representing granuloma. Chronic lung changes. Mitral annular valve calcifications. Coronary artery calcifications. Cardiac pacemaker leads are identified. Right ventricular lead Limited evaluation the tip due to extensive streak artifact. There is some fluid seen adjacent to the liver. There is no significant intrahepatic ductal dilatation. Otherwise grossly unremarkable unenhanced liver. There are surgical clips in the gallbladder fossa consistent with a prior cholecystectomy. There are multiple benign calcified granulomata of the spleen. Splenomegaly 13.3 cm. Normal pancreas. Normal bilateral adrenal glands. The right kidney is absent. Correlate with patient's surgical history. Small amount of fluid within the right renal fossa.. There is a 1.5 cm low-attenuation structure within the left kidney. There is a 2 mm proximal left ureteral stone with mild left hydroureter and hydronephrosis. There are additional 1 to 3 mm left nephrolithiasis. There is left perinephric fatty stranding. Otherwise grossly unremarkable unenhanced left kidney. There is a small hiatal hernia. 2.8 cm duodenal diverticulum. No dilated bowel by CT criteria. Evaluation of bowel is limited by the lack of IV and oral contrast material. There are multiple colonic diverticula consistent with diverticulosis. Minimal stranding and thickening adjacent to the portion of the descending colon. The appendix is visualized and appears normal. There is diffuse atherosclerotic calcification of the abdominal aorta, without a demonstrated aneurysm. Cannot evaluate for dissection due to lack of IV contrast. Nonspecific subcentimeter short axis mesenteric and retroperitoneal lymph nodes. There is a Medrano catheter within the bladder decompressing the bladder limiting its evaluation. Small amount of fluid within the pelvis. Patient is status post hysterectomy. Calcifications within the vaginal cuff region. Rotator cuff appears slightly prominent. Consider correlation with ultrasound to further evaluate. Nonemergent basis. Underlying mass cannot be excluded. There is a 7 mm nodularity within the soft tissues image 43/188 on the right anterior to the lower ribs just deep to the skin surface. Nonspecific. Clinical correlation is recommended. There is a small fat-containing umbilical hernia. There are diffuse degenerative changes of the visualized lumbar spine. Heterogeneous appearance to the osseous structures. CT/Abdomen/Pelvis without Cont IMPRESSION: Evaluation is limited by lack of IV and oral contrast. Proximal left ureteral stone with mild hydroureter and hydronephrosis with perinephric fatty stranding. Additional renal nephrolithiasis. Small left pleural effusion. Chronic lung changes. However pulmonary vascular congestion. Small amount of fluid within the abdomen and pelvis. There is some mild thickening and mild stranding adjacent to the distal descending colon. Mild diverticulitis cannot be totally excluded. Right nephrectomy. Small amount of fluid within the right renal fossa. Small duodenal diverticulum. Status post hysterectomy. Slight prominence and heterogeneity to the vaginal cuff. Correlate with prior studies for stability versus follow-up nonemergent ultrasound. There is a small low-attenuation structure seen within the left kidney likely representing a cyst. Evaluation is somewhat limited by lack of IV contrast. Correlate with prior studies for stability. Ultrasound may be performed to further evaluate on a nonemergent basis Other findings as discussed above. Electronically Signed: Jay Dong, at 0:41 EDT Tel , Service support ,
--- NOTE | 2018-06-13 22:15 | EKG12_ITS ---
Test Reason : COMLAINT Blood Pressure : / mmHG Vent. Rate : 109 BPM Atrial Rate : 109 BPM P-R Int : 128 ms QRS Dur : 128 ms QT Int : 392 ms P-R-T Axes : 002 -45 111 degrees QTc Int : 527 ms Sinus tachycardia Left axis deviation Left bundle branch block Abnormal ECG Confirmed by LE CONN ([id number]), scientific editor SOCO LA ([id number]) on 06/17/2018 4:47:26 PM Referred By: Gilberto Rios Confirmed By:LE CONN
--- NOTE | 2018-06-13 22:15 | RAD_ITS ---
STUDY: X-RAY CHEST REASON FOR EXAM: Female, 82 years old. Cough, weakness TECHNIQUE: PA and lateral chest 80/09/17 COMPARISON: None. FINDINGS: There are right upper lobe and right lower lobe pulmonary opacities. There is a Mild left upper lobe pulmonary opacity. There is mild peribronchial thickening. There are small pleural effusions. There is cardiac pacemaker. There are sternal wires. Normal mediastinum and blaise. There is prior a atrial clipping. There is generalized cardiomegaly. Surgical clips within the right upper quadrant from prior cholecystectomy. Normal visualized aortic arch and descending thoracic aorta. Normal visualized thoracic spine. Normal visualized ribs, clavicles, and shoulders. There is no demonstrated abnormality of the visualized soft tissue structures of the upper abdomen. RAD/Chest PA and Lateral IMPRESSION: Pulmonary infiltrates secondary to pulmonary edema and/or pneumonia. Small pleural effusions Cardiomegaly Cardiac pacemaker Electronically Signed: [place], at 23:17 EDT Tel , Service support ,
[2018-06-13 23:00] LABS: Absolute Lymphocyte Count 0.44 X10^3/ul (0.83-4.51); Basophil# 0.01 X10^3/uL; Basophil% 0.1 % (0-1); Differential Indicated SCAN CRITERIA MET; Eosinophil# 0.01 X10^3/uL; Eosinophils% 0.1 % (0-5); Hematocrit 37.1 % (37-47); Hemoglobin 11.6 g/dl (12.0-15.0); Lymphocyte # 0.44 X10^3/ul (4.0); Lymphocyte % 5.5 % (19-41); Mean Corp Hgb Conc 31.3 g/gl (32-36); Mean Corpuscular Hgb 27.8 pg (27.0-32.0); Mean Corpuscular Volume 88.8 fL (81-99); Mean Platelet Vol. 9.3 fl (6.2-12.0); Monocyte% 6.3 % (0-10); Neutrophil # 7.03 X10^3/uL (2.7-7.7); POSITIVE COUNT NO; POSITIVE DIFFERENTIAL YES; POSITIVE MORPHOLOGY NO; Platelet Count 119 K/mm3 (150-450); RBC Distribution Width SD 51.6 fl (35.1-43.9); Red Blood Count 4.18 M/mm3 (4.2-5.4)
[2018-06-13 23:01] LABS: Anion Gap 9 (5-15); BUN 48 mg/dL (7-18); BUN/Creat Ratio 16.2 RATIO (10-20); Calcium,Total 8.6 mg/dL (8.5-10.1); Chloride 104 mmol/L (98-107); Creatinine, Serum 2.96 mg/dL (0.55-1.02); EST Glomerular Filtration Rate 16 mL/min (>60); Est Glom Filt Rate - Afr Amer 20 mL/min (>60); Estimated Creatinine Clearance 13.19 ml/min; Glucose 156 mg/dL (74-106); Potassium 4.4 mmol/L (3.5-5.1); Sodium Level 135 mmol/L (136-145)
[2018-06-13 23:19] LABS: Differential Comment SCANNED
[2018-06-13 23:24] LABS: BNP,B-Type NATRIURETIC PEPTIDE 1014.7 pg/mL (0-100)
[2018-06-13 23:40] VITALS: BP 104/67; PULSE 108; RESP 18; O2SAT 93
[2018-06-13 23:44] VITALS: BP 104/67; PULSE 79; RESP 18; TEMP 37; O2SAT 93
[2018-06-14] VITALS (15 sets, daily range): BP systolic 91–113; BP diastolic 54–74; PULSE 105–115; RESP 14–16; TEMP 36.6–37.4; O2SAT 92–97; BMI 30.7
--- NOTE | 2018-06-14 00:46 | ED.VISSUMM ---
- ER Visit Summary Date of Service: 06/14/18 Chief Complaint: Decreased urine output History of Present Illness: The patient is a 82 F who presents with decreased urine output that became worse today. Patient states she has been having pain in her left flank today as well. Patient describes pain as aching. Patient went to her primary care physician today who placed a Medrano catheter. Patient has had limited urine output even with the Medrano catheter. Patient has a history of end-stage renal disease and only has her left kidney. Patient states she has had prior kidney stones. Patient denies any fevers or chills. Patient admits to some nausea and vomiting today. Patient also admits to some shortness of breath. Patient states she did drink some extra fluids to increase her urine output however this made her slightly more short of breath. Patient denies any peripheral edema. However, she states that normally she does not get peripheral edema when she has exacerbations of her congestive heart failure. Physical Examination: Vital signs are stable. Patient is afebrile. Patient is in no acute distress. Oral mucosa is pink and moist. Neck is supple. Trachea is midline. There is no JVD noted. Heart was regular rate and rhythm. Lungs are clear and equal bilateral. Abdomen is soft. Bowel sounds are normal. There is mild left CVA tenderness. There is no guarding noted. Skin is warm dry. Cranial nerves II through XII are intact. There are no focal motor or sensory deficits noted. The remaining physical exam is within normal limits. Test Results: EKG showed sinus tachycardia with a rate of 109. There is left axis deviation a left bundle branch block. This was unchanged compared to previous EKG dated 11/05/2017. Chest x-ray shows some evidence of pulmonary infiltrates secondary to pulmonary edema. There are small pleural effusions noted. The skin of the abdomen and pelvis showed proximal left ureteral stone with mild hydroureter and hydronephrosis and perinephric fatty stranding. There is some mild thickening and stranding adjacent to the distal descending colon. CBC showed a slight thrombocytopenia of 119. BUN was 48 and creatinine was 2.96. These were increased from previous results. BNP was elevated at 1014.7. This was also elevated compared to previous results. Emergency Department Course and Treatment: Patient states she normally takes Bumex. However given her ureteral stone in her only ureter and hydronephrosis, I am unsure as to whether Bumex will be effective for the patient. Case was discussed with Dr. Hicks. He will see the patient in the hospital tomorrow. Case was discussed with Dr. James. She will admit the patient to her service. Disposition: Admit to hospital Impression: 1. Left ureteral calculus with hydronephrosis 2. Congestive heart failure This note was generated with [employer] dictation software. It may contain incorrect words, spelling, and punctuation that were not noted in review of the chart prior to signing ED Disposition - Plan for ED Patient: Disposition: Acute Care Hospital [facility] Diagnosis: Left ureteral calculus, Congestive heart failure Referrals: Gilberto Rios MD [Primary Care Provider] -
--- NOTE | 2018-06-14 00:50 | ED.DCSUM_ITS ---
- ER Visit Summary Date of Service: 06/14/18 Chief Complaint: Decreased urine output History of Present Illness: The patient is a 82 F who presents with decreased urine output that became worse today. Patient states she has been having pain in her left flank today as well. Patient describes pain as aching. Patient went to her primary care physician today who placed a Medrano catheter. Patient has had limited urine output even with the Medrano catheter. Patient has a history of end-stage renal disease and only has her left kidney. Patient states she has had prior kidney stones. Patient denies any fevers or chills. Patient admits to some nausea and vomiting today. Patient also admits to some shortness of breath. Patient states she did drink some extra fluids to increase her urine output however this made her slightly more short of breath. Patient denies any peripheral edema. However, she states that normally she does not get peripheral edema when she has exacerbations of her congestive heart failure. Physical Examination: Vital signs are stable. Patient is afebrile. Patient is in no acute distress. Oral mucosa is pink and moist. Neck is supple. Trachea is midline. There is no JVD noted. Heart was regular rate and rhythm. Lungs are clear and equal bilateral. Abdomen is soft. Bowel sounds are normal. There is mild left CVA tenderness. There is no guarding noted. Skin is warm dry. Cranial nerves II through XII are intact. There are no focal motor or sensory deficits noted. The remaining physical exam is within normal limits. Test Results: EKG showed sinus tachycardia with a rate of 109. There is left axis deviation a left bundle branch block. This was unchanged compared to previous EKG dated 11/05/2017. Chest x-ray shows some evidence of pulmonary infiltrates secondary to pulmonary edema. There are small pleural effusions noted. The skin of the abdomen and pelvis showed proximal left ureteral stone with mild hydroureter and hydronephrosis and perinephric fatty stranding. There is some mild thickening and stranding adjacent to the distal descending colon. CBC showed a slight thrombocytopenia of 119. BUN was 48 and creatinine was 2.96. These were increased from previous results. BNP was elevated at 1014.7. This was also elevated compared to previous results. Emergency Department Course and Treatment: Patient states she normally takes Bumex. However given her ureteral stone in her only ureter and hydronephrosis, I am unsure as to whether Bumex will be effective for the patient. Case was discussed with Dr. Hicks. He will see the patient in the hospital tomorrow. Case was discussed with Dr. James. She will admit the patient to her service. Disposition: Admit to hospital Impression: 1. Left ureteral calculus with hydronephrosis 2. Congestive heart failure This note was generated with [employer] dictation software. It may contain incorrect words, spelling, and punctuation that were not noted in review of the chart prior to signing ED Disposition - Plan for ED Patient: Disposition: Acute Care Hospital [facility] Diagnosis: Left ureteral calculus, Congestive heart failure Referrals: Gilberto Rios MD [Primary Care Provider] -
--- NOTE | 2018-06-14 01:09 | PCM.HP.STD ---
Problem List (1) Complicated urinary tract infection Status: Acute (2) LANIE (acute kidney injury) Status: Acute (3) Calculus of proximal left ureter Status: Acute (4) Hydroureter on left Status: Acute (5) Hydronephrosis, left Status: Acute (6) Persistent atrial fibrillation Status: Chronic (7) History of mitral valve replacement with bioprosthetic valve Status: Chronic Comment: 27mm [employer] Epic bioprosthesis 01/18/17 (8) Essential hypertension Status: Chronic (9) Ventricular tachyarrhythmia Status: Chronic (10) H/O coronary artery bypass surgery Status: Chronic Comment: S/P bypass [place] [address] 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 marginal branch (11) Presence of implantable cardioverter-defibrillator (ICD) Status: Chronic Comment: [employer] 05/10/2009 (12) Secondary pulmonary arterial hypertension Status: Chronic (13) Ischemic cardiomyopathy Status: Chronic (14) Atherosclerosis of coronary artery of [place] heart without angina pectoris Status: Chronic Qualifiers: Coronary Disease-Associated Artery/Lesion type: [place] artery Qualified Code(s): I25.10 - Atherosclerotic heart disease of [place] coronary artery without angina pectoris Comment: S/P bypass [place] [address] 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 marginal branch (15) Acute on chronic systolic CHF (congestive heart failure) Status: Chronic (16) Chronic kidney disease, stage 3 Status: Chronic (17) Type 2 diabetes mellitus Status: Chronic Qualifiers: Diabetes mellitus care home insulin use: without care home use Diabetes mellitus complication status: with unspecified complications Qualified Code(s): E11.8 - Type 2 diabetes mellitus with unspecified complications (18) Status post right nephrectomy Status: Chronic (19) Status post implantation of automatic cardioverter/defibrillator (AICD) Status: Chronic (20) History of breast cancer Status: Chronic (21) History of renal cell carcinoma Status: Chronic History of Present Illness Date of Admission: 06/14/18 Chief Complaint: Decreased UOP, L flank pain The patient is a 82 y/o F w/ PMHx: CAD s/p CABG (12/2016 w/ Dr. Núñez, ANGULO to the LAD and reverse SVG to obtuse marginal branch, status post left atrial appendage with a 35 mm Atricure clip), Valvular Heart Disease w/ mitral valve insufficiency status post mitral valve repair w/ 27 mm [employer] Olegario epic bioprosthesis, Dilated and ischemic cardiomyopathy, Chronic Systolic CHF, Hypertension, Hyperlipidemia, Hx SVT s/p AICD, History of Breast CA following w/ Dr. Hernandez s/p chemotherapy, Hx renal carcinoma s/p nephrectomy w/ CKD stage III (baseline Cr 1.8-2.2), Diabetes mellitus type II, Fe Deficiency Anemia (baseline Hgb 11-12), Anxiety, Persistent atrial fibrillation who presents to the [facility] ED with history of evaluation per her PCP today secondary to decreased UOP, onset L flank discomfort w/ straight catheterization in the office without marked urine noted, encouraged increased intake and initiation on oral keflex for UTI; however, worsened flank discomfort and no marked increase in UOP despite increased hydration; however, onset mild dyspnea. She notes urine output last at approximately 6 AM on day prior to current presentation with nothing since then until Cardoza catheter placement in the ED. in the ED she notes that initial severity of left flank discomfort was 10 out of 10 however this is notably improved to 4-5 out of 10 work-up in the ED included T 97.6, heart rate initially 116 with improvement to 79, respiratory rate 18, BP 120/78, 96% on room air, CBC with WBC 8, hemoglobin 11.6, platelet 119 with mild left shift, BMP with sodium 135, BUN/creatinine 48/2.96, glucose 156, BNP 1014.7, chest x-ray with pulmonary infiltrates suspicious for pulmonary edema, small pleural effusions, cardiomegaly, cardiac pacemaker present, CT abdomen and pelvis with no IV or oral contrast with proximal left ureteral stone with mild hydroureter and hydronephrosis with perinephric fatty stranding, additional renal nephrolithiasis, small left pleural effusion, chronic lung changes with pulmonary vascular congestion, small amount of fluid in the abdomen and pelvis, mild thickening and mild stranding adjacent to the distal colon, right nephrectomy, small amount of fluid within the right renal fossa, small duodenal diverticulum, status post hysterectomy with slight prominence and heterogeneity of the vaginal cuff, small low attenuation structure seen within the left kidney suspicious for a cyst. Past Medical History Past Medical History (Chronic Problems): Chronic Problems (Last Reviewed 05/13/18 @ 13:48 by Rema Anglin) Persistent atrial fibrillation (Chronic) History of mitral valve replacement with bioprosthetic valve (Chronic ~01/18/17) 27mm [employer] Olegario Epic bioprosthesis 01/18/17 Essential hypertension (Chronic) Ventricular tachyarrhythmia (Chronic) H/O coronary artery bypass surgery (Chronic ~01/18/17) S/P bypass [place] [address] 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 marginal branch Presence of implantable cardioverter-defibrillator (ICD) (Chronic ~05/10/09) [employer] 05/10/2009 Secondary pulmonary arterial hypertension (Chronic) Ischemic cardiomyopathy (Chronic) Atherosclerosis of coronary artery of [place] heart without angina pectoris (Chronic) S/P bypass surgery [place] [address] 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 marginal branch retirement (current) use of 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 (Chronic) Acute on chronic systolic CHF (congestive heart failure) (Chronic) Chronic kidney disease, stage 3 (Chronic) Type 2 diabetes mellitus (Chronic) Status post right nephrectomy (Chronic) Status post implantation of automatic cardioverter/defibrillator (AICD) (Chronic) History of breast cancer (Chronic) History of renal cell carcinoma (Chronic) Medical History: Medical History (Last Reviewed 05/13/18 @ 13:48 by Rema Anglin) Persistent atrial fibrillation (Chronic) I48.1 Ventricular tachyarrhythmia (Chronic) I47.2 Secondary pulmonary arterial hypertension (Chronic) I27.21 Ischemic cardiomyopathy (Chronic) I25.5 Atherosclerosis of coronary artery of [place] heart without angina pectoris (Chronic) I25.10 S/P bypass [place] [address] 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) use of 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 (Chronic) Z79.01 Acute on chronic systolic CHF (congestive heart failure) (Chronic) I50.23 Chronic kidney disease, stage 3 (Chronic) N18.3 Type 2 diabetes mellitus (Chronic) E11.9 History of breast cancer (Chronic) Z85.3 History of renal cell carcinoma (Chronic) Z85.528 Hypertension (Inactive) I10 Allergies erythromycin base Adverse Reaction (Verified 06/13/18 21:45) Vomiting meperidine [From Demerol] Adverse Reaction (Verified 06/13/18 21:45) Vomiting Home Medications: Ambulatory Orders Medication Instructions Recorded Niacin 250 mg PO DAILY 12/23/16 alprazolam 0.5 mg tablet 0.5 mg PO QHS tab 03/19/17 metoprolol tartrate 25 mg tablet 25 mg PO BID 03/19/17 amiodarone 200 mg tablet 200 mg PO DAILY 90 Days #90 tab 04/19/17 Aspirin E.C. [Ecotrin] 81 mg PO DAILY 11/05/17 C,E,Zinc,Copper 11/Rzbxk4s/Lut 1 tab PO DAILY 11/05/17 [Ocuvite Adult 50 Plus Softgel] Calcium Carbonate/Vitamin D3 1 tab PO DAILY 11/05/17 [Calcium 600-Vit D3 200 Tablet] Carboxymethylcellulose Sodium 1 drp EACH EYE TID 11/05/17 [Refresh Tears] Ferrous Sulfate [Iron] 325 mg PO DAILY 11/05/17 Magnesium Oxide 400 mg PO DAILY 11/05/17 bumetanide 1 mg tablet 1 mg PO DAILY #1 tab 05/02/18 warfarin 3 mg tablet 3 mg PO DAILY #90 tab 05/13/18 Allopurinol 100 mg PO DAILY 06/14/18 Cephalexin [Keflex] 500 mg PO BID 06/14/18 Surgical History: Surgical History (Last Reviewed 05/13/18 @ 13:48 by Rema Anglin) History of mitral valve replacement with bioprosthetic valve (Chronic) Onset Date: ~01/18/17 Z95.3 27mm [employer] Olegario Epic bioprosthesis 01/18/17 H/O coronary artery bypass surgery (Chronic) Onset Date: ~01/18/17 Z95.1 S/P bypass surgery [place] [address] 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 Olegario bioprosthesis @ [facility] by Dr. Lahorra History of partial mastectomy of left breast Onset Date: ~11/2003 Z98.890, Z90.12 History of total abdominal hysterectomy Z98.890, Z90.710 Hx of CABG Onset Date: ~12/2016 Z95.1 x2 ANGULO to LAD, SVG-OM; W/LAE occlusion with 35-mm Atricure Clip Hx of cholecystectomy Z98.890, Z90.49 Surgical History: appendectomy, cholecystectomy, tonsillectomy, - - hysterectomy, mastectomy, nephrectomy Psychiatric History: Anxiety INFORMATION TECHNOLOGY ASSOCIATE History: No pertinent INFORMATION TECHNOLOGY ASSOCIATE history Smoking Status: Never smoker Tobacco Use: Non-smoker Alcohol: None Drugs: None - *Family History Maternal Family History: Family History (Last Reviewed 05/13/18 @ 13:48 by Rema Anglin) Brother CAD (coronary artery disease) History Items: Unknown - Patient states she does not know her maternal family history but believes she was healthy. Paternal Family History: Family History (Last Reviewed 05/13/18 @ 13:48 by Rema Anglin) Brother CAD (coronary artery disease) History Items: Unknown - Patient states she does not know her paternal family history but notes he was healthy. Sibling Family History: Family History (Last Reviewed 05/13/18 @ 13:48 by Rema Anglin) Brother CAD (coronary artery disease) History Items: Heart Disease Review of Systems Constitutional: Reports: Malaise, Weakness, Fatigue. Denies: Chills, Fever, Weight Change HEENT: Denies: Head Aches, Sinus Congestion, Sinus Drainage Cardiovascular: Denies: Chest Pain, Palpitations Respiratory: Denies: Cough, Shortness of breath at rest, Sputum production Gastrointestinal: Reports: Abdominal Pain. Denies: Nausea, Vomiting Genitourinary: Reports: Retention. Denies: Dysuria Musculoskeletal: Reports: Back Pain, Joint Pain. Denies: Joint Tenderness Skin: Denies: Rash, Wounds Neurological: Denies: Numbness, Tingling, Focal weakness Psychiatric: Reports: Anxiety, Depression. Denies: Homicidal Ideations, Suicidal Ideations Hematologic/ Lymphatic: Reports: Anemia, Easy Bruising, Easy Bleeding VTE Information - Inpt Only VTE Present on Admission: No VTE Mechan Device Prophylaxis: SCD's VTE Pharm Prophylaxis ordered?: No Reason prophylaxis not ordered:: Treatment Not Indicated - On coumadin, pending INR. Patient Problems: Active and Suspected Problems (Last Reviewed 05/13/18 @ 13:48 by Rema Anglin) LANIE (acute kidney injury) (Acute) Complicated urinary tract infection (Acute) Calculus of proximal left ureter (Acute) Hydroureter on left (Acute) Hydronephrosis, left (Acute) Subjective: Seated upright in ED bed, fatigued appearance, no acute distress, notes flank discomfort has improved. Objective: Physical Examination: General: awake, alert, oriented x 3 and cooperative, seated upright in ED bed, no acute distress, notes flank discomfort has lessened. Skin: normal color, turgor, no icterus, cyanosis, occasional various staged ecchymoses. HEENT: AT/NC, EOMI, PERRLA, dry MM, no carotid bruits or JVD noted. Lungs: Mildly diminished breath sounds, greater bilateral bases, mild rales bases, no rhonchi or wheezing, left flank discomfort with tap. Heart: Tachycardic, regular; no gallop, rub audible, SM. Abdomen: soft, obese, mild suprapubic tenderness to palpation and left lateral lower quadrant tenderness to palpation, ND, normal BS, no HSM. Extremities: no cyanosis, clubbing, mild bilateral ankle edema, nonpitting currently. Neurological: patient awake, alert, oriented x 3; cognitive function intact; pupils equally reactive to light and accomodation; cranial nerves II-XII grossly normal, moving all 4 extremities, no focal deficits, strength fairly globally decreased secondary to acute presentation. Psychiatric: affect appears normal, mildly fatigued, no acute evidence of depressive or anxiety feelings. - Physical Exam Vital Signs Temp Pulse Resp BP Pulse Ox 98.6 F 79 18 104/67 93 06/13/18 23:44 06/13/18 23:44 06/13/18 23:44 06/13/18 23:44 06/13/18 23:44 Oxygen Delivery Method Room Air Weight: 184 lb Body Mass Index (BMI) 30.6 Laboratory Tests Past 24 Hrs 06/13/18 06/13/18 06/13/18 22:40 22:40 22:40 WBC 8.0 RBC 4.18 L Hgb 11.6 L Hct 37.1 MCV 88.8 MCH 27.8 MCHC 31.3 L RDW 16.0 H RDW Differential 51.6 H Plt Count 119 L MPV 9.3 Immature Gran % (Auto) 0.000 Neut % (Auto) 88.0 H Lymph % (Auto) 5.5 L Dixie % (Auto) 6.3 Eos % (Auto) 0.1 Baso % (Auto) 0.1 Absolute Neuts (auto) 7.0 Absolute Lymphs (auto) 0.44 L Total Counted Not Reportable Differential Comment SCANNED Sodium 135 L Potassium 4.4 Chloride 104 Carbon Dioxide 22.0 Anion Gap 9 BUN 48 H Creatinine 2.96 H Estim Creat Clear Calc 13.19 Est GFR (MDRD) Af Amer 20 L Est GFR (MDRD) Non-Af 16 L BUN/Creatinine Ratio 16.2 Glucose 156 H Calcium 8.6 B-Natriuretic Peptide 1014.7 H Assessment/Plan All Active Problems (Last Reviewed 05/13/18 @ 13:48 by Rema Anglin) LANIE (acute kidney injury) (Acute) Complicated urinary tract infection (Acute) Calculus of proximal left ureter (Acute) Hydroureter on left (Acute) Hydronephrosis, left (Acute) The patient is a 82 y/o F w/ PMHx: CAD, Valvular Heart Disease w/ mitral valve insufficiency status post mitral valve repair w/ 27 mm [employer]legario epic bioprosthesis, Dilated and ischemic cardiomyopathy, Chronic Systolic CHF, Hypertension, Hyperlipidemia, Hx SVT s/p AICD, History of Breast CA following w/ Dr. Hernandez s/p chemotherapy, Hx renal carcinoma s/p nephrectomy w/ CKD stage III, Diabetes mellitus type II, Fe Deficiency Anemia, Anxiety, Persistent atrial fibrillation who presents to the [facility] ED with history of evaluation per her PCP today secondary to decreased UOP, onset L flank discomfort w/ straight catheterization in the office without marked urine noted, encouraged increased intake and initiation on oral keflex for UTI; however, worsened flank discomfort and no marked increase in UOP despite increased hydration; however, onset mild dyspnea. (1) Acute Decompensated Systolic CHF, Dilated and ischemic cardiomyopathy: CXR obtained in the ED w/ congestion secondary to recent attempted increased oral intake secondary to decreased urine output. Patient administered IV Bumex in the ED, will admit to PCU, maintain on cardiac telemetry, obtain cardiac enzyme series, obtain serial EKGs, given LANIE in setting as noted #2, will hold on further IV regimen, monitor I/Os, maintain on intake restriction, continue medical therapy w/ asa, statin, BB, hold nephrotoxic regimen as able but if needed reinitiate diuresis. Cardiology consulted, pending, given patient notable cardiac history and need for urological intervention. (2) Acute Flank Pain, secondary to Acute Nephrolithiasis w/ proximal left ureteral stone with mild hydroureter and hydronephrosis with Complicated UTI: CT abdomen and pelvis with no IV or oral contrast with proximal left ureteral stone with mild hydroureter and hydronephrosis with perinephric fatty stranding, additional renal nephrolithiasis, small left pleural effusion, chronic lung changes with pulmonary vascular congestion, small amount of fluid in the abdomen and pelvis, mild thickening and mild stranding adjacent to the distal colon, right nephrectomy, small amount of fluid within the right renal fossa, small duodenal diverticulum, status post hysterectomy with slight prominence and heterogeneity of the vaginal cuff, small low attenuation structure seen within the left kidney suspicious for a cyst. Given recent volume overload with CHF exacerbation, defer aggressive hydration, continue IV Rocephin, maintain NPO for intervention, continue cardoza catheter placement, PRN IV/Oral pain regimen, PRN anti-emetics, monitor I&Os. (3) Acute kidney injury on CKD stage III: Secondary to acute presentation #2. Admission BUN/Cr 48/2.96, prior baseline creatinine noted to be 1.8-2.2. Complicates presentation as patient with volume overload, IV Bumex x1 administered in the ED, holding additional nephrotoxic medication regimen, defer any aggressive hydration given this acute presentation. Patient preconstruction manager, Dr. Stacy Degroot consulted and aware, will evaluate. (4) CAD: s/p CABG 12/2016 w/ KEV Mitchell to the LAD and reverse SVG to obtuse marginal branch, status post left atrial appendage with a 35 mm Atricure clip), continue metoprolol, not on statin, discussed with urology and no need to hold anticoagulation therefore will continue. (5) Valvular Heart Disease: Patient w/ mitral valve insufficiency status post mitral valve repair w/ 27 mm [employer]legario epic bioprosthesis, (6) Diabetes mellitus type II: Not on regimen, n.p.o. status currently but transition once appropriate to ADA diet, accu checks w/ ISS. (7) Hypertension: Continue home regimen including metoprolol, holding further administration of Bumex, given IV dose in the ED, PRN hydralazine. (8) Hyperlipidemia: Not on statin, defer given age. (9) History of Breast CA: s/p partial mastectomy, following w/ Dr. Hernandez s/p chemotherapy. (10) Hx renal carcinoma: s/p nephrectomy, (11) Fe Deficiency Anemia: Admission Hgb 11.6, baseline Hgb 11-12, CBC in a.m. (12) Anxiety, Insomnia: Continue home Xanax regimen; if worsened renal function will hold. (13) Persistent atrial fibrillation: Discussed with urology and no need to hold Coumadin thus will continue, continue home amiodarone and metoprolol regimen. (14) Hx SVT: s/p AICD. (15) DVT prophylaxis: SCDs, coumadin w/ INR trending, urology cleared to continue her Coumadin despite upcoming planned intervention. (16) CODE status: Patient has a living will and healthcare power of art specialist is daughter. Discussed CODE status options and patient requested continued DNR-CCA, no intubation status. Advanced Care Planning Face to Face Time: 16 minutes. Code Visit Inpatient E&M: 25706 Init Hosp L3 Procedures: 71245 Advncd Care Plan 30 Min
--- NOTE | 2018-06-14 01:21 | HP.PCM_ITS ---
Problem List (1) Complicated urinary tract infection Status: Acute (2) LANIE (acute kidney injury) Status: Acute (3) Calculus of proximal left ureter Status: Acute (4) Hydroureter on left Status: Acute (5) Hydronephrosis, left Status: Acute (6) Persistent atrial fibrillation Status: Chronic (7) History of mitral valve replacement with bioprosthetic valve Status: Chronic Comment: 27mm [employer] Epic bioprosthesis 01/18/17 (8) Essential hypertension Status: Chronic (9) Ventricular tachyarrhythmia Status: Chronic (10) H/O coronary artery bypass surgery Status: Chronic Comment: S/P bypass [place] [address] 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 marginal branch (11) Presence of implantable cardioverter-defibrillator (ICD) Status: Chronic Comment: [employer] 05/10/2009 (12) Secondary pulmonary arterial hypertension Status: Chronic (13) Ischemic cardiomyopathy Status: Chronic (14) Atherosclerosis of coronary artery of [place] heart without angina pectoris Status: Chronic Qualifiers: Coronary Disease-Associated Artery/Lesion type: [place] artery Qualified Code(s): I25.10 - Atherosclerotic heart disease of [place] coronary artery without angina pectoris Comment: S/P bypass surgery [place] [address] 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 marginal branch (15) Acute on chronic systolic CHF (congestive heart failure) Status: Chronic (16) Chronic kidney disease, stage 3 Status: Chronic (17) Type 2 diabetes mellitus Status: Chronic Qualifiers: Diabetes mellitus senior living insulin use: without senior living use Diabetes mellitus complication status: with unspecified complications Qualified Code(s): E11.8 - Type 2 diabetes mellitus with unspecified complications (18) Status post right nephrectomy Status: Chronic (19) Status post implantation of automatic cardioverter/defibrillator (AICD) Status: Chronic (20) History of breast cancer Status: Chronic (21) History of renal cell carcinoma Status: Chronic History of Present Illness Date of Admission: 06/14/18 Chief Complaint: Decreased UOP, L flank pain The patient is a 82 y/o F w/ PMHx: CAD s/p CABG (12/2016 w/ Dr. Núñez, ANGULO to the LAD and reverse SVG to obtuse marginal branch, status post left atrial appendage with a 35 mm Atricure clip), Valvular Heart Disease w/ mitral valve insufficiency status post mitral valve repair w/ 27 mm [employer] epic bioprosthesis, Dilated and ischemic cardiomyopathy, Chronic Systolic CHF, Hypertension, Hyperlipidemia, Hx SVT s/p AICD, History of Breast CA following w/ Dr. Hernandez s/p chemotherapy, Hx renal carcinoma s/p nephrectomy w/ CKD stage III (baseline Cr 1.8-2.2), Diabetes mellitus type II, Fe Deficiency Anemia (baseline Hgb 11-12), Anxiety, Persistent atrial fibrillation who presents to the [facility] ED with history of evaluation per her PCP today secondary to decreased UOP, onset L flank discomfort w/ straight catheterization in the office without marked urine noted, encouraged increased intake and initiation on oral keflex for UTI; however, worsened flank discomfort and no marked increase in UOP despite increased hydration; however, onset mild dyspnea. She notes urine output last at approximately 6 AM on day prior to current presentation with nothing since then until Cardoza catheter placement in the ED. in the ED she notes that initial severity of left flank discomfort was 10 out of 10 however this is notably improved to 4-5 out of 10 work-up in the ED included T 97.6, heart rate initially 116 with improvement to 79, respiratory rate 18, BP 120/78, 96% on room air, CBC with WBC 8, hemoglobin 11.6, platelet 119 with mild left shift, BMP with sodium 135, BUN/creatinine 48/2.96, glucose 156, BNP 1014.7, chest x- ray with pulmonary infiltrates suspicious for pulmonary edema, small pleural effusions, cardiomegaly, cardiac pacemaker present, CT abdomen and pelvis with no IV or oral contrast with proximal left ureteral stone with mild hydroureter and hydronephrosis with perinephric fatty stranding, additional renal nephrolithiasis, small left pleural effusion, chronic lung changes with pulmonary vascular congestion, small amount of fluid in the abdomen and pelvis, mild thickening and mild stranding adjacent to the distal colon, right nephrectomy, small amount of fluid within the right renal fossa, small duodenal diverticulum, status post hysterectomy with slight prominence and heterogeneity of the vaginal cuff, small low attenuation structure seen within the left kidney suspicious for a cyst. Past Medical History Past Medical History (Chronic Problems): Chronic Problems (Last Reviewed 05/13/18 @ 13:48 by Rema Anglin) Persistent atrial fibrillation (Chronic) History of mitral valve replacement with bioprosthetic valve (Chronic ~01/18/17) 27mm [employer] Epic bioprosthesis 01/18/17 Essential hypertension (Chronic) Ventricular tachyarrhythmia (Chronic) H/O coronary artery bypass surgery (Chronic ~01/18/17) S/P bypass [place] [address] 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 marginal branch Presence of implantable cardioverter-defibrillator (ICD) (Chronic ~05/10/09) [employer] 05/10/2009 Secondary pulmonary arterial hypertension (Chronic) Ischemic cardiomyopathy (Chronic) Atherosclerosis of coronary artery of [place] heart without angina pectoris (Chronic) S/P bypass surgery [place] [address] 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) use of 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 (Chronic) Acute on chronic systolic CHF (congestive heart failure) (Chronic) Chronic kidney disease, stage 3 (Chronic) Type 2 diabetes mellitus (Chronic) Status post right nephrectomy (Chronic) Status post implantation of automatic cardioverter/defibrillator (AICD) (Chronic) History of breast cancer (Chronic) History of renal cell carcinoma (Chronic) Medical History: Medical History (Last Reviewed 05/13/18 @ 13:48 by Rema Anglin) Persistent atrial fibrillation (Chronic) I48.1 Ventricular tachyarrhythmia (Chronic) I47.2 Secondary pulmonary arterial hypertension (Chronic) I27.21 Ischemic cardiomyopathy (Chronic) I25.5 Atherosclerosis of coronary artery of [place] heart without angina pectoris (Chronic) I25.10 S/P bypass surgery [place] [address] 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) use of 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 (Chronic) Z79.01 Acute on chronic systolic CHF (congestive heart failure) (Chronic) I50.23 Chronic kidney disease, stage 3 (Chronic) N18.3 Type 2 diabetes mellitus (Chronic) E11.9 History of breast cancer (Chronic) Z85.3 History of renal cell carcinoma (Chronic) Z85.528 Hypertension (Inactive) I10 Allergies erythromycin base Adverse Reaction (Verified 06/13/18 21:45) Vomiting meperidine [From Demerol] Adverse Reaction (Verified 06/13/18 21:45) Vomiting Home Medications: Ambulatory Orders Medication Instructions Recorded Niacin 250 mg PO DAILY 12/23/16 alprazolam 0.5 mg tablet 0.5 mg PO QHS tab 03/19/17 metoprolol tartrate 25 mg tablet 25 mg PO BID 03/19/17 amiodarone 200 mg tablet 200 mg PO DAILY 90 Days #90 tab 04/19/17 Aspirin E.C. [Ecotrin] 81 mg PO DAILY 11/05/17 C,E,Zinc,Copper 11/Eubop6i/Lut 1 tab PO DAILY 11/05/17 [Ocuvite Adult 50 Plus Softgel] Calcium Carbonate/Vitamin D3 1 tab PO DAILY 11/05/17 [Calcium 600-Vit D3 200 Tablet] Carboxymethylcellulose Sodium 1 drp EACH EYE TID 11/05/17 [Refresh Tears] Ferrous Sulfate [Iron] 325 mg PO DAILY 11/05/17 Magnesium Oxide 400 mg PO DAILY 11/05/17 bumetanide 1 mg tablet 1 mg PO DAILY #1 tab 05/02/18 warfarin 3 mg tablet 3 mg PO DAILY #90 tab 05/13/18 Allopurinol 100 mg PO DAILY 06/14/18 Cephalexin [Keflex] 500 mg PO BID 06/14/18 Surgical History: Surgical History (Last Reviewed 05/13/18 @ 13:48 by Rema Anglin) History of mitral valve replacement with bioprosthetic valve (Chronic) Onset Date: ~01/18/17 Z95.3 27mm [employer] Epic bioprosthesis 01/18/17 H/O coronary artery bypass surgery (Chronic) Onset Date: ~01/18/17 Z95.1 S/P bypass [place] [address] 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 marginal branch Presence of implantable cardioverter-defibrillator (ICD) (Chronic) Onset Date: ~05/10/09 Z95.810 [employer] 05/10/2009 Status post right nephrectomy (Chronic) Status post implantation of automatic cardioverter/defibrillator (AICD) (Chronic) Z95.810 History of left heart catheterization Onset Date: ~12/25/16 Z98.890 History of mitral valve replacement Z95.2 Mitral Valve Replacement with a 27mm [employer] Olegario bioprosthesis @ [facility], [place] by Dr. Lahorra History of partial mastectomy of left breast Onset Date: ~11/2003 Z98.890, Z90.12 History of total abdominal hysterectomy Z98.890, Z90.710 Hx of CABG Onset Date: ~12/2016 Z95.1 x2 ANGULO to LAD, SVG-OM; W/LAE occlusion with 35-mm Atricure Clip Hx of cholecystectomy Z98.890, Z90.49 Surgical History: appendectomy, cholecystectomy, tonsillectomy, - - hysterectomy, mastectomy, nephrectomy Psychiatric History: Anxiety INVENTORY CONTROL COORDINATOR History: No pertinent INVENTORY CONTROL COORDINATOR history Smoking Status: Never smoker Tobacco Use: Non-smoker Alcohol: None Drugs: None - *Family History Maternal Family History: Family History (Last Reviewed 05/13/18 @ 13:48 by Rema Anglin) Brother CAD (coronary artery disease) History Items: Unknown - Patient states she does not know her maternal family history but believes she was healthy. Paternal Family History: Family History (Last Reviewed 05/13/18 @ 13:48 by Rema Anglin) Brother CAD (coronary artery disease) History Items: Unknown - Patient states she does not know her paternal family history but notes he was healthy. Sibling Family History: Family History (Last Reviewed 05/13/18 @ 13:48 by Rema Anglin) Brother CAD (coronary artery disease) History Items: Heart Disease Review of Systems Constitutional: Reports: Malaise, Weakness, Fatigue. Denies: Chills, Fever, Weight Change HEENT: Denies: Head Aches, Sinus Congestion, Sinus Drainage Cardiovascular: Denies: Chest Pain, Palpitations Respiratory: Denies: Cough, Shortness of breath at rest, Sputum production Gastrointestinal: Reports: Abdominal Pain. Denies: Nausea, Vomiting Genitourinary: Reports: Retention. Denies: Dysuria Musculoskeletal: Reports: Back Pain, Joint Pain. Denies: Joint Tenderness Skin: Denies: Rash, Wounds Neurological: Denies: Numbness, Tingling, Focal weakness Psychiatric: Reports: Anxiety, Depression. Denies: Homicidal Ideations, Suicidal Ideations Hematologic/ Lymphatic: Reports: Anemia, Easy Bruising, Easy Bleeding VTE Information - Inpt Only VTE Present on Admission: No VTE Mechan Device Prophylaxis: SCD's VTE Pharm Prophylaxis ordered?: No Reason prophylaxis not ordered:: Treatment Not Indicated - On coumadin, pending INR. Patient Problems: Active and Suspected Problems (Last Reviewed 05/13/18 @ 13:48 by Rema Anglin) LANIE (acute kidney injury) (Acute) Complicated urinary tract infection (Acute) Calculus of proximal left ureter (Acute) Hydroureter on left (Acute) Hydronephrosis, left (Acute) Subjective: Seated upright in ED bed, fatigued appearance, no acute distress, notes flank discomfort has improved. Objective: Physical Examination: General: awake, alert, oriented x 3 and cooperative, seated upright in ED bed, no acute distress, notes flank discomfort has lessened. Skin: normal color, turgor, no icterus, cyanosis, occasional various staged ecchymoses. HEENT: AT/NC, EOMI, PERRLA, dry MM, no carotid bruits or JVD noted. Lungs: Mildly diminished breath sounds, greater bilateral bases, mild rales bases, no rhonchi or wheezing, left flank discomfort with tap. Heart: Tachycardic, regular; no gallop, rub audible, SM. Abdomen: soft, obese, mild suprapubic tenderness to palpation and left lateral lower quadrant tenderness to palpation, ND, normal BS, no HSM. Extremities: no cyanosis, clubbing, mild bilateral ankle edema, nonpitting currently. Neurological: patient awake, alert, oriented x 3; cognitive function intact; pupils equally reactive to light and accomodation; cranial nerves II-XII grossly normal, moving all 4 extremities, no focal deficits, strength fairly globally decreased secondary to acute presentation. Psychiatric: affect appears normal, mildly fatigued, no acute evidence of depressive or anxiety feelings. - Physical Exam Vital Signs Temp Pulse Resp BP Pulse Ox 98.6 F 79 18 104/67 93 06/13/18 23:44 06/13/18 23:44 06/13/18 23:44 06/13/18 23:44 06/13/18 23:44 Oxygen Delivery Method Room Air Weight: 184 lb Body Mass Index (BMI) 30.6 Laboratory Tests Past 24 Hrs 06/13/18 06/13/18 06/13/18 22:40 22:40 22:40 WBC 8.0 RBC 4.18 L Hgb 11.6 L Hct 37.1 MCV 88.8 MCH 27.8 MCHC 31.3 L RDW 16.0 H RDW Differential 51.6 H Plt Count 119 L MPV 9.3 Immature Gran % (Auto) 0.000 Neut % (Auto) 88.0 H Lymph % (Auto) 5.5 L [place] % (Auto) 6.3 Eos % (Auto) 0.1 Baso % (Auto) 0.1 Absolute Neuts (auto) 7.0 Absolute Lymphs (auto) 0.44 L Total Counted Not Reportable Differential Comment SCANNED Sodium 135 L Potassium 4.4 Chloride 104 Carbon Dioxide 22.0 Anion Gap 9 BUN 48 H Creatinine 2.96 H Estim Creat Clear Calc 13.19 Est GFR (MDRD) Af Amer 20 L Est GFR (MDRD) Non-Af 16 L BUN/Creatinine Ratio 16.2 Glucose 156 H Calcium 8.6 B-Natriuretic Peptide 1014.7 H Assessment/Plan All Active Problems (Last Reviewed 05/13/18 @ 13:48 by Rema Anglin) LANIE (acute kidney injury) (Acute) Complicated urinary tract infection (Acute) Calculus of proximal left ureter (Acute) Hydroureter on left (Acute) Hydronephrosis, left (Acute) The patient is a 82 y/o F w/ PMHx: CAD, Valvular Heart Disease w/ mitral valve insufficiency status post mitral valve repair w/ 27 mm [employer] epic bioprosthesis, Dilated and ischemic cardiomyopathy, Chronic Systolic CHF, Hypertension, Hyperlipidemia, Hx SVT s/p AICD, History of Breast CA following w/ Dr. Hernandez s/p chemotherapy, Hx renal carcinoma s/p nephrectomy w/ CKD stage III, Diabetes mellitus type II, Fe Deficiency Anemia, Anxiety, Persistent atrial fibrillation who presents to the [facility] ED with history of evaluation per her PCP today secondary to decreased UOP, onset L flank discomfort w/ straight catheterization in the office without marked urine noted, encouraged increased intake and initiation on oral keflex for UTI; however, worsened flank discomfort and no marked increase in UOP despite increased hydration; however, onset mild dyspnea. (1) Acute Decompensated Systolic CHF, Dilated and ischemic cardiomyopathy: CXR obtained in the ED w/ congestion secondary to recent attempted increased oral intake secondary to decreased urine output. Patient administered IV Bumex in the ED, will admit to PCU, maintain on cardiac telemetry, obtain cardiac enzyme series, obtain serial EKGs, given LANIE in setting as noted #2, will hold on further IV regimen, monitor I/Os, maintain on intake restriction, continue m edical therapy w/ asa, statin, BB, hold nephrotoxic regimen as able but if needed reinitiate diuresis. Cardiology consulted, pending, given patient notable cardiac history and need for urological intervention. (2) Acute Flank Pain, secondary to Acute Nephrolithiasis w/ proximal left ureteral stone with mild hydroureter and hydronephrosis with Complicated UTI: CT abdomen and pelvis with no IV or oral contrast with proximal left ureteral stone with mild hydroureter and hydronephrosis with perinephric fatty stranding, additional renal nephrolithiasis, small left pleural effusion, chronic lung c hanges with pulmonary vascular congestion, small amount of fluid in the abdomen and pelvis, mild thickening and mild stranding adjacent to the distal colon, right nephrectomy, small amount of fluid within the right renal fossa, small duodenal diverticulum, status post hysterectomy with slight prominence and heterogeneity of the vaginal cuff, small low attenuation structure seen within the left kidney suspicious for a cyst. Given recent volume overload with CHF exacerbation, defer aggressive hydration, continue IV Rocephin, maintain NPO for intervention, continue cardoza catheter placement, PRN IV/Oral pain regimen, PRN anti-emetics, monitor I&Os. (3) Acute kidney injury on CKD stage III: Secondary to acute presentation #2. Admission BUN/Cr 48/2.96, prior baseline creatinine noted to be 1.8-2.2. Complicates presentation as patient with volume overload, IV Bumex x1 administered in the ED, holding additional nephrotoxic medication regimen, defer any aggressive hydration given this acute presentation. 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 Stacy Degroot consulted and aware, will evaluate. (4) CAD: s/p CABG 12/2016 w/ KEV Mitchell to the LAD and reverse SVG to obtuse marginal branch, status post left atrial appendage with a 35 mm Atricure clip), continue metoprolol, not on statin, discussed with urology and no need to hold anticoagulation therefore will continue. (5) Valvular Heart Disease: Patient w/ mitral valve insufficiency status post mitral valve repair w/ 27 mm [employer] epic bioprosthesis, (6) Diabetes mellitus type II: Not on regimen, n.p.o. status currently but transition once appropriate to ADA diet, accu checks w/ ISS. (7) Hypertension: Continue home regimen including metoprolol, holding further administration of Bumex, given IV dose in the ED, PRN hydralazine. (8) Hyperlipidemia: Not on statin, defer given age. (9) History of Breast CA: s/p partial mastectomy, following w/ Dr. Hernandez s/p chemotherapy. (10) Hx renal carcinoma: s/p nephrectomy, (11) Fe Deficiency Anemia: Admission Hgb 11.6, baseline Hgb 11-12, CBC in a.m. (12) Anxiety, Insomnia: Continue home Xanax regimen; if worsened renal function will hold. (13) Persistent atrial fibrillation: Discussed with urology and no need to hold Coumadin thus will continue, continue home amiodarone and metoprolol regimen. (14) Hx SVT: s/p AICD. (15) DVT prophylaxis: SCDs, coumadin w/ INR trending, urology cleared to continue her Coumadin despite upcoming planned intervention. (16) CODE status: Patient has a living will and healthcare power of criminal defense attorney is daughter. Discussed CODE status options and patient requested continued DNR-CCA, no intubation status. Advanced Care Planning Face to Face Time: 16 minutes. Code Visit Inpatient E&M: 41085 Init Hosp L3 Procedures: 43943 Advncd Care Plan 30 Min
[2018-06-14 01:22] LABS: Color, Urine Amber (Yellow); Glucose, Dipstick Normal (Normal); Ketone-Dipstick 5 mg/dl (Negative); Leukocyte Esterase-Dipstick 500 /ul (Negative); Mucous, Urine 0 SEEN /hpf (<or=2+); Nitrite-Dipstick Positive (Negative); Occult Blood-Urine 250 /ul (Negative); Protein-Dipstick 100 mg/dl (Negative); Specific Gravity, Urine 1.015 (1.002-1.030); Urine Bilirubin Dipstick Negative (Negative); Urine Clarity Cloudy (Clear); Urine Urobilinogen 1 mg/dl (Normal)
[2018-06-14 01:31] LABS: Bacteria 2+ /hpf (None Seen); Red Blood Cells-Urine 50-100 SEEN /hpf (0-5); Squamous Epithelial Cells - UA 0-5 SEEN /hpf (5-10); White Blood Cells 10-25 SEEN /hpf (0-5)
[2018-06-14] MEDS: Bumetanide 1 MG/4 ML Vial 2 MG IV (02:03)
[2018-06-14] MEDS: Morphine 4 MG/ML Syringe IV (02:03)
[2018-06-14 02:50] LABS: Absolute Neutrophil Count 6.5 X10^3/uL (2.0-7.7); Basophil# 0.02 X10^3/uL; Basophil% 0.3 % (0-1); Eosinophil# 0.02 X10^3/uL; Eosinophils% 0.3 % (0-5); Hematocrit 36.8 % (37-47); Hemoglobin 11.6 g/dl (12.0-15.0); Lymphocyte % 7.9 % (19-41); Mean Corp Hgb Conc 31.5 g/gl (32-36); Mean Corpuscular Hgb 28.6 pg (27.0-32.0); Mean Corpuscular Volume 90.6 fL (81-99); Monocyte# 0.45 X10^3/uL; Neutrophil # 6.46 X10^3/uL (2.7-7.7); Neutrophil % 85.4 % (47-70); Platelet Count 132 K/mm3 (150-450); RBC Distribution Width CV 15.9 % (11.6-14.6); RBC Distribution Width SD 51.7 fl (35.1-43.9); Red Blood Count 4.06 M/mm3 (4.2-5.4); White Blood Count 7.6 K/mm3 (4.4-11.0)
[2018-06-14 02:54] LABS: International Normalized Ratio 2.7; Prothrombin Time (Protime)PT. 28.7 SECONDS (11.7-14.9)
[2018-06-14 02:55] LABS: Differential Indicated SCAN CRITERIA MET; POSITIVE COUNT NO; POSITIVE DIFFERENTIAL YES; POSITIVE MORPHOLOGY NO
[2018-06-14 03:01] LABS: Anion Gap 9 (5-15); BUN 48 mg/dL (7-18); BUN/Creat Ratio 17.6 RATIO (10-20); Calcium,Total 8.5 mg/dL (8.5-10.1); Chloride 103 mmol/L (98-107); Creatinine, Serum 2.73 mg/dL (0.55-1.02); EST Glomerular Filtration Rate 18 mL/min (>60); Est Glom Filt Rate - Afr Amer 21 mL/min (>60); Glucose 114 mg/dL (74-106); Potassium 4.3 mmol/L (3.5-5.1); Sodium Level 135 mmol/L (136-145)
[2018-06-14 03:14] LABS: Magnesium 2.6 mg/dL (1.6-2.6)
[2018-06-14] MEDS: Ceftriaxone 1 GM/50 ML BAG IV ×2 (03:18→21:49)
--- NOTE | 2018-06-14 05:55 | EKG12_ITS ---
Test Reason : AM EKG Blood Pressure : / mmHG Vent. Rate : 107 BPM Atrial Rate : 107 BPM P-R Int : 216 ms QRS Dur : 126 ms QT Int : 384 ms P-R-T Axes : -56 -46 115 degrees QTc Int : 512 ms Unusual P axis, possible ectopic atrial tachycardia Left axis deviation Left bundle branch block Abnormal ECG When compared with ECG of 13-JUN-2018 22:20, MANUAL COMPARISON REQUIRED, DATA IS UNCONFIRMED Confirmed by LE CONN ([id number]), order editor SOCO LA ([id number] on 06/17/2018 5:16:34 PM Referred By: DR PRUITT Confirmed By:LE CONN
--- NOTE | 2018-06-14 07:30 | PCM.CONS.U ---
Reason for Consult Date of Consultation: 06/14/18 Reason for Consultation: left hydronephrosis. History of Present Illness: The patient is a 82 year old Female admitted with elevated cr h/o solitary left kidney, multiple medical problems, has hydronephrosis due to a very small stone, but the stone may pass on it own. Past Medical History Past Medical History (Chronic Problems): Chronic Problems (Last Reviewed 05/13/18 @ 13:48 by Rema Anglin) Persistent atrial fibrillation (Chronic) History of mitral valve replacement with bioprosthetic valve (Chronic ~01/18/17) 27mm [facility] Epic bioprosthesis 01/18/17 Essential hypertension (Chronic) Ventricular tachyarrhythmia (Chronic) H/O coronary artery bypass surgery (Chronic ~01/18/17) S/P bypass [place] [address] 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 marginal branch Presence of implantable cardioverter-defibrillator (ICD) (Chronic ~05/10/09) [employer] 05/10/2009 Secondary pulmonary arterial hypertension (Chronic) Ischemic cardiomyopathy (Chronic) Atherosclerosis of coronary artery of [place] heart without angina pectoris (Chronic) S/P bypass [place] [address] 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) Acute on chronic systolic CHF (congestive heart failure) (Chronic) Chronic kidney disease, stage 3 (Chronic) Type 2 diabetes mellitus (Chronic) Status post right nephrectomy (Chronic) Status post implantation of automatic cardioverter/defibrillator (AICD) (Chronic) History of breast cancer (Chronic) History of renal cell carcinoma (Chronic) Medical History: Medical History (Last Reviewed 06/14/18 @ 07:31 by Donta Hicks MD) Persistent atrial fibrillation (Chronic) I48.1 Ventricular tachyarrhythmia (Chronic) I47.2 Secondary pulmonary arterial hypertension (Chronic) I27.21 Ischemic cardiomyopathy (Chronic) I25.5 Atherosclerosis of coronary artery of [place] heart without angina pectoris (Chronic) I25.10 S/P bypass [place] [address] 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) Z79.01 Acute on chronic systolic CHF (congestive heart failure) (Chronic) I50.23 Chronic kidney disease, stage 3 (Chronic) N18.3 Type 2 diabetes mellitus (Chronic) E11.9 History of breast cancer (Chronic) Z85.3 History of renal cell carcinoma (Chronic) Z85.528 Hypertension (Inactive) I10 Allergies erythromycin base Adverse Reaction (Verified 06/13/18 21:45) Vomiting meperidine [From Demerol] Adverse Reaction (Verified 06/13/18 21:45) Vomiting Home Medications: Ambulatory Orders Medication Instructions Recorded Niacin 250 mg PO DAILY 12/23/16 alprazolam 0.5 mg tablet 0.5 mg PO QHS tab 03/19/17 metoprolol tartrate 25 mg tablet 25 mg PO BID 03/19/17 amiodarone 200 mg tablet 200 mg PO DAILY 90 Days #90 tab 04/19/17 Aspirin E.C. [Ecotrin] 81 mg PO DAILY 11/05/17 C,E,Zinc,Copper 11/Kilwk6s/Lut 1 tab PO DAILY 11/05/17 [Ocuvite Adult 50 Plus Softgel] Calcium Carbonate/Vitamin D3 1 tab PO DAILY 11/05/17 [Calcium 600-Vit D3 200 Tablet] Carboxymethylcellulose Sodium 1 drp EACH EYE TID 11/05/17 [Refresh Tears] Ferrous Sulfate [Iron] 325 mg PO DAILY 11/05/17 Magnesium Oxide 400 mg PO DAILY 11/05/17 bumetanide 1 mg tablet 1 mg PO DAILY #1 tab 05/02/18 warfarin 3 mg tablet 3 mg PO DAILY #90 tab 05/13/18 Allopurinol 100 mg PO DAILY 06/14/18 Cephalexin [Keflex] 500 mg PO BID 06/14/18 Surgical History: Surgical History (Last Reviewed 06/14/18 @ 07:31 by Donta Hicks MD) History of mitral valve replacement with bioprosthetic valve (Chronic) Onset Date: ~01/18/17 Z95.3 27mm [facility] Epic bioprosthesis 01/18/17 H/O coronary artery bypass surgery (Chronic) Onset Date: ~01/18/17 Z95.1 S/P [place] [address] Núñze with a ANGULO to LAD and reverse SVG to obtuse marginal branch Presence of implantable cardioverter-defibrillator (ICD) (Chronic) Onset Date: ~05/10/09 Z95.810 [employer] 05/10/2009 Status post right nephrectomy (Chronic) Status post implantation of automatic cardioverter/defibrillator (AICD) (Chronic) Z95.810 History of left heart catheterization Onset Date: ~12/25/16 Z98.890 History of mitral valve replacement Z95.2 Mitral Valve Replacement with a 27mm [employer] Olegario bioprosthesis @ [facility] by Dr. 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 Paternal Family History: Family History (Last Reviewed 06/14/18 @ 07:31 by Donta Hicks MD) Brother CAD (coronary artery disease) History Items: Unknown - Patient states she does not know her paternal family history but notes he was healthy. Sibling Family History: Family History (Last Reviewed 06/14/18 @ 07:31 by Donta Hicks MD) Brother CAD (coronary artery disease) History Items: Heart Disease Review of Systems Constitutional: Denies: Chills, Fever, Weight Change HEENT: Denies: Head Aches, Sinus Congestion, Sinus Drainage Cardiovascular: Denies: Chest Pain, Palpitations Respiratory: Denies: Cough, Shortness of breath at rest, Sputum production Gastrointestinal: Denies: Abdominal Pain, Nausea, Vomiting Genitourinary: Denies: Dysuria Musculoskeletal: Denies: Joint Pain, Joint Tenderness Skin: Denies: Rash, Wounds Neurological: Denies: Numbness, Tingling, Focal weakness Psychiatric: Denies: Anxiety, Depression, Homicidal Ideations, Suicidal Ideations Hematologic/ Lymphatic: Denies: Easy Bruising, Easy Bleeding Physical Exam - Physical Exam Vital Signs Temp 97.8 F 06/14/18 06:15 Pulse 106 H 06/14/18 06:15 Resp 16 06/14/18 06:15 BP 101/66 06/14/18 06:15 Pulse Ox 97 06/14/18 06:15 Intake & Output 06/12/18 06/13/18 06/14/18 23:59 23:59 23:59 Output Total 700 / 700 Balance -700 / -700 Weight: 83.461 kg 83.6 kg Output: Urine 700 / 700 General: Alert, Oriented x3 HEENT: Atraumatic Oral: Moist Mucosa Neck: Supple Lungs: Normal air movement Cardiovascular: Regular Rhythm Abdomen: Soft Rectal: Exam deferred Laboratory Tests Past 24 Hrs 06/13/18 06/13/18 06/13/18 22:40 22:40 22:40 WBC 8.0 RBC 4.18 L Hgb 11.6 L Hct 37.1 MCV 88.8 MCH 27.8 MCHC 31.3 L RDW 16.0 H RDW Differential 51.6 H Plt Count 119 L MPV 9.3 Immature Gran % (Auto) 0.000 Neut % (Auto) 88.0 H Lymph % (Auto) 5.5 L [place] % (Auto) 6.3 Eos % (Auto) 0.1 Baso % (Auto) 0.1 Absolute Neuts (auto) 7.0 Absolute Lymphs (auto) 0.44 L Total Counted Not Reportable Differential Comment SCANNED PT INR Sodium 135 L Potassium 4.4 Chloride 104 Carbon Dioxide 22.0 Anion Gap 9 BUN 48 H Creatinine 2.96 H Estim Creat Clear Calc 13.19 Est GFR (MDRD) Af Amer 20 L Est GFR (MDRD) Non-Af 16 L BUN/Creatinine Ratio 16.2 Glucose 156 H Calcium 8.6 Magnesium Troponin I B-Natriuretic Peptide 1014.7 H Urine Color Urine Clarity Urine pH Ur Specific [place] Urine Protein Urine Glucose (UA) Urine Ketones Urine Occult Blood Urine Nitrite Urine Bilirubin Urine Urobilinogen Ur Leukocyte Esterase Urine RBC Urine WBC Ur Squamous Epith Cells Urine Bacteria Urine Mucus 06/14/18 06/14/18 06/14/18 01:15 02:35 02:35 WBC RBC Hgb Hct MCV MCH MCHC RDW RDW Differential Plt Count MPV Immature Gran % (Auto) Neut % (Auto) Lymph % (Auto) [place] % (Auto) Eos % (Auto) Baso % (Auto) Absolute Neuts (auto) Absolute Lymphs (auto) Total Counted Differential Comment PT 28.7 H INR 2.7 Sodium Potassium Chloride Carbon Dioxide Anion Gap BUN Creatinine Estim Creat Clear Calc Est GFR (MDRD) Af Amer Est GFR (MDRD) Non-Af BUN/Creatinine Ratio Glucose Calcium Magnesium 2.6 Troponin I B-Natriuretic Peptide Urine Color Sol Urine Clarity Cloudy Urine pH 5.0 Ur Specific [place] 1.015 Urine Protein 100 H Urine Glucose (UA) Normal Urine Ketones 5 H Urine Occult Blood 250 H Urine Nitrite Positive H Urine Bilirubin Negative Urine Urobilinogen 1 H Ur Leukocyte Esterase 500 H Urine RBC 50-100 SEEN Urine WBC 10-25 SEEN Ur Squamous Epith Cells 0-5 SEEN Urine Bacteria 2+ Urine Mucus 0 SEEN 06/14/18 06/14/18 06/14/18 02:35 02:35 02:35 WBC 7.6 RBC 4.06 L Hgb 11.6 L Hct 36.8 L MCV 90.6 MCH 28.6 MCHC 31.5 L RDW 15.9 H RDW Differential 51.7 H Plt Count 132 L MPV 10.0 Immature Gran % (Auto) 0.100 Neut % (Auto) 85.4 H Lymph % (Auto) 7.9 L [place] % (Auto) 6.0 Eos % (Auto) 0.3 Baso % (Auto) 0.3 Absolute Neuts (auto) 6.5 Absolute Lymphs (auto) 0.60 L Total Counted Not Reportable Differential Comment PT INR Sodium 135 L Potassium 4.3 Chloride 103 Carbon Dioxide 23.0 Anion Gap 9 BUN 48 H Creatinine 2.73 H Estim Creat Clear Calc 14.30 Est GFR (MDRD) Af Amer 21 L Est GFR (MDRD) Non-Af 18 L BUN/Creatinine Ratio 17.6 Glucose 114 H Calcium 8.5 Magnesium Troponin I < 0.015 B-Natriuretic Peptide Urine Color Urine Clarity Urine pH Ur Specific [place] Urine Protein Urine Glucose (UA) Urine Ketones Urine Occult Blood Urine Nitrite Urine Bilirubin Urine Urobilinogen Ur Leukocyte Esterase Urine RBC Urine WBC Ur Squamous Epith Cells Urine Bacteria Urine Mucus 06/14/18 05:45 WBC RBC Hgb Hct MCV MCH MCHC RDW RDW Differential Plt Count MPV Immature Gran % (Auto) Neut % (Auto) Lymph % (Auto) [place] % (Auto) Eos % (Auto) Baso % (Auto) Absolute Neuts (auto) Absolute Lymphs (auto) Total Counted Differential Comment PT INR Sodium Potassium Chloride Carbon Dioxide Anion Gap BUN Creatinine Estim Creat Clear Calc Est GFR (MDRD) Af Amer Est GFR (MDRD) Non-Af BUN/Creatinine Ratio Glucose Calcium Magnesium Troponin I < 0.015 B-Natriuretic Peptide Urine Color Urine Clarity Urine pH Ur Specific [place] Urine Protein Urine Glucose (UA) Urine Ketones Urine Occult Blood Urine Nitrite Urine Bilirubin Urine Urobilinogen Ur Leukocyte Esterase Urine RBC Urine WBC Ur Squamous Epith Cells Urine Bacteria Urine Mucus Assessment/Plan All Active Problems (Last Reviewed 05/13/18 @ 13:48 by Rema Anglin) LANIE (acute kidney injury) (Acute) Complicated urinary tract infection (Acute) Calculus of proximal left ureter (Acute) Hydroureter on left (Acute) Hydronephrosis, left (Acute) Left ureteral calculus (Acute) Congestive heart failure (Acute) 82 female multiple medical problems admitted for elevated, hydrephrosis v small stone, npo for now but not sure if she will require a stent will discuss with her and review ct scan?
--- NOTE | 2018-06-14 07:33 | CON.PCM_ITS ---
Reason for Consult Date of Consultation: 06/14/18 Reason for Consultation: left hydronephrosis. History of Present Illness: The patient is a 82 year old Female admitted with elevated cr h/o solitary left kidney, multiple medical problems, has hydronephrosis due to a very small stone, but the stone may pass on it own. Past Medical History Past Medical History (Chronic Problems): Chronic Problems (Last Reviewed 05/13/18 @ 13:48 by Rema Anglin) Persistent atrial fibrillation (Chronic) History of mitral valve replacement with bioprosthetic valve (Chronic ~01/18/17) 27mm [employer] [facility] Epic bioprosthesis 01/18/17 Essential hypertension (Chronic) Ventricular tachyarrhythmia (Chronic) H/O coronary artery bypass surgery (Chronic ~01/18/17) S/P bypass [place] [address] 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 marginal branch Presence of implantable cardioverter-defibrillator (ICD) (Chronic ~05/10/09) [employer] [employer] 05/10/2009 Secondary pulmonary arterial hypertension (Chronic) Ischemic cardiomyopathy (Chronic) Atherosclerosis of coronary artery of [place] heart without angina pectoris (Chronic) S/P bypass [place] [address] 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 (Chronic) Acute on chronic systolic CHF (congestive heart failure) (Chronic) Chronic kidney disease, stage 3 (Chronic) Type 2 diabetes mellitus (Chronic) Status post right nephrectomy (Chronic) Status post implantation of automatic cardioverter/defibrillator (AICD) (Chronic) History of breast cancer (Chronic) History of renal cell carcinoma (Chronic) Medical History: Medical History (Last Reviewed 06/14/18 @ 07:31 by Donta Hicks MD) Persistent atrial fibrillation (Chronic) I48.1 Ventricular tachyarrhythmia (Chronic) I47.2 Secondary pulmonary arterial hypertension (Chronic) I27.21 Ischemic cardiomyopathy (Chronic) I25.5 Atherosclerosis of coronary artery of [place] heart without angina pectoris (Chronic) I25.10 S/P bypass [place] [address] 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 (Chronic) Z79.01 Acute on chronic systolic CHF (congestive heart failure) (Chronic) I50.23 Chronic kidney disease, stage 3 (Chronic) N18.3 Type 2 diabetes mellitus (Chronic) E11.9 History of breast cancer (Chronic) Z85.3 History of renal cell carcinoma (Chronic) Z85.528 Hypertension (Inactive) I10 Allergies erythromycin base Adverse Reaction (Verified 06/13/18 21:45) Vomiting meperidine [From Demerol] Adverse Reaction (Verified 06/13/18 21:45) Vomiting Home Medications: Ambulatory Orders Medication Instructions Recorded Niacin 250 mg PO DAILY 12/23/16 alprazolam 0.5 mg tablet 0.5 mg PO QHS tab 03/19/17 metoprolol tartrate 25 mg tablet 25 mg PO BID 03/19/17 amiodarone 200 mg tablet 200 mg PO DAILY 90 Days #90 tab 04/19/17 Aspirin E.C. [Ecotrin] 81 mg PO DAILY 11/05/17 C,E,Zinc,Copper 11/Umsvp3d/Lut 1 tab PO DAILY 11/05/17 [Ocuvite Adult 50 Plus Softgel] Calcium Carbonate/Vitamin D3 1 tab PO DAILY 11/05/17 [Calcium 600-Vit D3 200 Tablet] Carboxymethylcellulose Sodium 1 drp EACH EYE TID 11/05/17 [Refresh Tears] Ferrous Sulfate [Iron] 325 mg PO DAILY 11/05/17 Magnesium Oxide 400 mg PO DAILY 11/05/17 bumetanide 1 mg tablet 1 mg PO DAILY #1 tab 05/02/18 warfarin 3 mg tablet 3 mg PO DAILY #90 tab 05/13/18 Allopurinol 100 mg PO DAILY 06/14/18 Cephalexin [Keflex] 500 mg PO BID 06/14/18 Surgical History: Surgical History (Last Reviewed 06/14/18 @ 07:31 by Donta Hicks MD) History of mitral valve replacement with bioprosthetic valve (Chronic) Onset Date: ~01/18/17 Z95.3 27mm [facility] Epic bioprosthesis 01/18/17 H/O coronary artery bypass surgery (Chronic) Onset Date: ~01/18/17 Z95.1 S/P bypass [place] [address] 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 marginal branch Presence of implantable cardioverter-defibrillator (ICD) (Chronic) Onset Date: ~05/10/09 Z95.810 [employer] [employer] 05/10/2009 Status post right nephrectomy (Chronic) Status post implantation of automatic cardioverter/defibrillator (AICD) (Chronic) Z95.810 History of left heart catheterization Onset Date: ~12/25/16 Z98.890 History of mitral valve replacement Z95.2 Mitral Valve Replacement with a 27mm [employer] [facility] bioprosthesis @ [facility] by Dr. 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 Paternal Family History: Family History (Last Reviewed 06/14/18 @ 07:31 by Donta Hicks MD) Brother CAD (coronary artery disease) History Items: Unknown - Patient states she does not know her paternal family history but notes he was healthy. Sibling Family History: Family History (Last Reviewed 06/14/18 @ 07:31 by Donta Hicks MD) Brother CAD (coronary artery disease) History Items: Heart Disease Review of Systems Constitutional: Denies: Chills, Fever, Weight Change HEENT: Denies: Head Aches, Sinus Congestion, Sinus Drainage Cardiovascular: Denies: Chest Pain, Palpitations Respiratory: Denies: Cough, Shortness of breath at rest, Sputum production Gastrointestinal: Denies: Abdominal Pain, Nausea, Vomiting Genitourinary: Denies: Dysuria Musculoskeletal: Denies: Joint Pain, Joint Tenderness Skin: Denies: Rash, Wounds Neurological: Denies: Numbness, Tingling, Focal weakness Psychiatric: Denies: Anxiety, Depression, Homicidal Ideations, Suicidal Ideations Hematologic/ Lymphatic: Denies: Easy Bruising, Easy Bleeding Physical Exam - Physical Exam Vital Signs Temp 97.8 F 06/14/18 06:15 Pulse 106 H 06/14/18 06:15 Resp 16 06/14/18 06:15 BP 101/66 06/14/18 06:15 Pulse Ox 97 06/14/18 06:15 Intake & Output 06/12/18 06/13/18 06/14/18 23:59 23:59 23:59 Output Total 700 / 700 Balance -700 / -700 Weight: 83.461 kg 83.6 kg Output: Urine 700 / 700 General: Alert, Oriented x3 HEENT: Atraumatic Oral: Moist Mucosa Neck: Supple Lungs: Normal air movement Cardiovascular: Regular Rhythm Abdomen: Soft Rectal: Exam deferred Laboratory Tests Past 24 Hrs 06/13/18 06/13/18 06/13/18 22:40 22:40 22:40 WBC 8.0 RBC 4.18 L Hgb 11.6 L Hct 37.1 MCV 88.8 MCH 27.8 MCHC 31.3 L RDW 16.0 H RDW Differential 51.6 H Plt Count 119 L MPV 9.3 Immature Gran % (Auto) 0.000 Neut % (Auto) 88.0 H Lymph % (Auto) 5.5 L [place] % (Auto) 6.3 Eos % (Auto) 0.1 Baso % (Auto) 0.1 Absolute Neuts (auto) 7.0 Absolute Lymphs (auto) 0.44 L Total Counted Not Reportable Differential Comment SCANNED PT INR Sodium 135 L Potassium 4.4 Chloride 104 Carbon Dioxide 22.0 Anion Gap 9 BUN 48 H Creatinine 2.96 H Estim Creat Clear Calc 13.19 Est GFR (MDRD) Af Amer 20 L Est GFR (MDRD) Non-Af 16 L BUN/Creatinine Ratio 16.2 Glucose 156 H Calcium 8.6 Magnesium Troponin I B-Natriuretic Peptide 1014.7 H Urine Color Urine Clarity Urine pH Ur Specific [place] Urine Protein Urine Glucose (UA) Urine Ketones Urine Occult Blood Urine Nitrite Urine Bilirubin Urine Urobilinogen Ur Leukocyte Esterase Urine RBC Urine WBC Ur Squamous Epith Cells Urine Bacteria Urine Mucus 06/14/18 06/14/18 06/14/18 01:15 02:35 02:35 WBC RBC Hgb Hct MCV MCH MCHC RDW RDW Differential Plt Count MPV Immature Gran % (Auto) Neut % (Auto) Lymph % (Auto) [place] % (Auto) Eos % (Auto) Baso % (Auto) Absolute Neuts (auto) Absolute Lymphs (auto) Total Counted Differential Comment PT 28.7 H INR 2.7 Sodium Potassium Chloride Carbon Dioxide Anion Gap BUN Creatinine Estim Creat Clear Calc Est GFR (MDRD) Af Amer Est GFR (MDRD) Non-Af BUN/Creatinine Ratio Glucose Calcium Magnesium 2.6 Troponin I B-Natriuretic Peptide Urine Color Sol Urine Clarity Cloudy Urine pH 5.0 Ur Specific [place] 1.015 Urine Protein 100 H Urine Glucose (UA) Normal Urine Ketones 5 H Urine Occult Blood 250 H Urine Nitrite Positive H Urine Bilirubin Negative Urine Urobilinogen 1 H Ur Leukocyte Esterase 500 H Urine RBC 50-100 SEEN Urine WBC 10-25 SEEN Ur Squamous Epith Cells 0-5 SEEN Urine Bacteria 2+ Urine Mucus 0 SEEN 06/14/18 06/14/18 06/14/18 02:35 02:35 02:35 WBC 7.6 RBC 4.06 L Hgb 11.6 L Hct 36.8 L MCV 90.6 MCH 28.6 MCHC 31.5 L RDW 15.9 H RDW Differential 51.7 H Plt Count 132 L MPV 10.0 Immature Gran % (Auto) 0.100 Neut % (Auto) 85.4 H Lymph % (Auto) 7.9 L [place] % (Auto) 6.0 Eos % (Auto) 0.3 Baso % (Auto) 0.3 Absolute Neuts (auto) 6.5 Absolute Lymphs (auto) 0.60 L Total Counted Not Reportable Differential Comment PT INR Sodium 135 L Potassium 4.3 Chloride 103 Carbon Dioxide 23.0 Anion Gap 9 BUN 48 H Creatinine 2.73 H Estim Creat Clear Calc 14.30 Est GFR (MDRD) Af Amer 21 L Est GFR (MDRD) Non-Af 18 L BUN/Creatinine Ratio 17.6 Glucose 114 H Calcium 8.5 Magnesium Troponin I < 0.015 B-Natriuretic Peptide Urine Color Urine Clarity Urine pH Ur Specific [place] Urine Protein Urine Glucose (UA) Urine Ketones Urine Occult Blood Urine Nitrite Urine Bilirubin Urine Urobilinogen Ur Leukocyte Esterase Urine RBC Urine WBC Ur Squamous Epith Cells Urine Bacteria Urine Mucus 06/14/18 05:45 WBC RBC Hgb Hct MCV MCH MCHC RDW RDW Differential Plt Count MPV Immature Gran % (Auto) Neut % (Auto) Lymph % (Auto) [place] % (Auto) Eos % (Auto) Baso % (Auto) Absolute Neuts (auto) Absolute Lymphs (auto) Total Counted Differential Comment PT INR Sodium Potassium Chloride Carbon Dioxide Anion Gap BUN Creatinine Estim Creat Clear Calc Est GFR (MDRD) Af Amer Est GFR (MDRD) Non-Af BUN/Creatinine Ratio Glucose Calcium Magnesium Troponin I < 0.015 B-Natriuretic Peptide Urine Color Urine Clarity Urine pH Ur Specific [place] Urine Protein Urine Glucose (UA) Urine Ketones Urine Occult Blood Urine Nitrite Urine Bilirubin Urine Urobilinogen Ur Leukocyte Esterase Urine RBC Urine WBC Ur Squamous Epith Cells Urine Bacteria Urine Mucus Assessment/Plan All Active Problems (Last Reviewed 05/13/18 @ 13:48 by Rema Anglin) LANIE (acute kidney injury) (Acute) Complicated urinary tract infection (Acute) Calculus of proximal left ureter (Acute) Hydroureter on left (Acute) Hydronephrosis, left (Acute) Left ureteral calculus (Acute) Congestive heart failure (Acute) 82 female multiple medical problems admitted for elevated, hydrephrosis v small stone, npo for now but not sure if she will require a stent will discuss with her and review ct scan?
[2018-06-14 07:36] LABS: Bedside Glucose 105 mg/dL (70-110)
[2018-06-14] MEDS: Aspirin E.C. 81 MG Tablet PO (09:58)
[2018-06-14] MEDS: Metoprolol Tartrate 25 MG Tablet PO ×2 (09:58→22:44)
[2018-06-14] MEDS: Ferrous Sulfate 325 MG Tablet PO (09:58)
[2018-06-14] MEDS: Amiodarone 200 MG Tablet PO (09:58)
[2018-06-14] MEDS: Allopurinol 100 MG Tablet PO (09:58)
--- NOTE | 2018-06-14 11:05 | CASEMGMT ---
RN CM NUTRITION FACULTY MEMBER CM to room to meet with patient for initial transition planning/care coordination assessment. RN DILAN introduced self and role at [facility]. Pt voices understanding and consents to assessment at this time. Pt resting in bed in no distress at this time. Pt is A/O at this time and answers all questions appropriately. Care providers, pharmacy, and demographics verified/updated at this time. PCP: Gabriel Specialists: Marc-cardiology, Zane-nephrology, Roberto-privacy attorney, Shawna-podiatry Preferred Pharmacy: [facility] Insurance: MCR, [employer] Prescription Benefit: Yes/[employer] Living Will/HPOA: Has both LW and HCPOA, who is her daughter, Lori Kerr LNOK: 3 daughters, Lori Kerr/VALE, Lazara Fernández Living Arrangements: Lives alone in onestory home w/ramp to enter Transportation: Pt states drives self and states no transportation concerns at this time. Daughter, Lori, can also assist if needed. DME: Has/uses: Walker, hospital bed, tub bench/shower chair, rails/grab bars, hand held shower. Has available but does not use: lift chair, W/C. Does not have: Home O2, BIPAPCPAP, or nebulizer. Pt states no need for further DME at this time. HHC/SNF: Has used [facility] in the past and has been to [facility] after valve replacement and to [facility]. Pt wishes: Pt wishes to return home and states has no concerns with going home at time of discharge. Declines wanting HHC. Discussed Out-pt therapy with pt and she also declines, stating she feels she does not need it. Pt made aware she can discuss with her PCP if she decides she would like it at a later time. Pt voices understanding. CM to follow for any further discharge planning/needs. Pt voices no further concerns/needs at this time. Advised pt to ask for CM if any further questions/concerns/needs arise. Voices understanding. PLAN: Home with family support and discharge plans in place. Yarelis SETVE RN, CM
[2018-06-14 11:46] LABS: Bedside Glucose 128 mg/dL (70-110)
--- NOTE | 2018-06-14 12:57 | PCM.PN.HOSP ---
Patient Problems: Active and Suspected Problems (Last Reviewed 06/14/18 @ 07:31 by Donta Hicks MD) LANIE (acute kidney injury) (Acute) Complicated urinary tract infection (Acute) Calculus of proximal left ureter (Acute) Hydroureter on left (Acute) Hydronephrosis, left (Acute) Left ureteral calculus (Acute) Congestive heart failure (Acute) Subjective: Patient seen and examined. She was admitted with a complaint of decreased urine output and left flank discomfort. She is being managed for acute decompensated heart failure, complicated UTI and Lanie on CKD. Patient feels better today. She denies any fever, chills, palpitations or dizziness, chest pain, diarrhea or vomiting. Review of systems otherwise negative. Labs and vitals reviewed. Plan was for urology to put in a stent today. However, after urology reviewed her CT scan, dont think there is any obstruction that requires a stent. Procedure therefore cancelled. Vitals/I&O's: Vital Signs Temp Pulse Resp BP Pulse Ox 97.8 F 105 H 16 94/64 94 06/14/18 09:55 06/14/18 10:59 06/14/18 09:55 06/14/18 09:55 06/14/18 09:55 Oxygen Delivery Method Room Air Weight: 184 lb 4.903 oz Body Mass Index (BMI) 30.7 Intake and Output for Last 24 Hours 06/12/18 06/13/18 06/14/18 23:59 23:59 23:59 Intake Total 360 / 360 Output Total 1050 / 1050 Balance -690 / -690 General: Alert, Oriented x3, Cooperative, No apparent distress HEENT: Atraumatic, PERRLA, EOMI, Normocephalic Oral: Moist Mucosa Neck: Supple, No JVD, Negative Carotid Bruits Lungs: Clear to auscultation, Normal air movement Cardiovascular: Regular rate, Regular Rhythm, Normal S1, Normal S2, No murmurs Abdomen: Bowel Sounds Present, Soft, Non Tender, Non-Distended, No Hepato-splenomegaly Extremities: No clubbing, No cyanosis, No edema, Capillary Refill Less than 3 Seconds Skin: No rashes, No breakdown Musculoskeletal: No Tenderness to Palpation of Joints or Extremities Lymphatic: No Cervical, Supraclavicular, or Inguinal Adenopathy Neurological: Cranial nerves II-XII grossly intact, Neuro grossly intact, Motor Exam 5/5 strength throughout Psych/Mental Status: Normal Affect, Appropriate, Alert and oriented to time, place, person, mood and affect Laboratory Results 06/13/18 22:40: WBC 8.0, RBC 4.18 L, Hgb 11.6 L, Hct 37.1, MCV 88.8, MCH 27.8, MCHC 31.3 L, RDW 16.0 H, RDW Differential 51.6 H, Plt Count 119 L, MPV 9.3, Immature Gran % (Auto) 0.000, Neut % (Auto) 88.0 H, Lymph % (Auto) 5.5 L, [place] % (Auto) 6.3, Eos % (Auto) 0.1, Baso % (Auto) 0.1, Absolute Neuts (auto) 7.0, Absolute Lymphs (auto) 0.44 L, Total Counted Not Reportable, Differential Comment SCANNED 06/13/18 22:40: Sodium 135 L, Potassium 4.4, Chloride 104, Carbon Dioxide 22.0, Anion Gap 9, BUN 48 H, Creatinine 2.96 H, Estim Creat Clear Calc 13.19, Est GFR (MDRD) Af Amer 20 L, Est GFR (MDRD) Non-Af 16 L, BUN/Creatinine Ratio 16.2, Glucose 156 H, Calcium 8.6 06/13/18 22:40: B-Natriuretic Peptide 1014.7 H 06/14/18 01:15: Urine Color Sol, Urine Clarity Cloudy, Urine pH 5.0, Ur Specific [place] 1.015, Urine Protein 100 H, Urine Glucose (UA) Normal, Urine Ketones 5 H, Urine Occult Blood 250 H, Urine Nitrite Positive H, Urine Bilirubin Negative, Urine Urobilinogen 1 H, Ur Leukocyte Esterase 500 H, Urine RBC 50-100 SEEN, Urine WBC 10-25 SEEN, Ur Squamous Epith Cells 0-5 SEEN, Urine Bacteria 2+, Urine Mucus 0 SEEN 06/14/18 02:35: PT 28.7 H, INR 2.7 06/14/18 02:35: Magnesium 2.6 06/14/18 02:35: WBC 7.6, RBC 4.06 L, Hgb 11.6 L, Hct 36.8 L, MCV 90.6, MCH 28.6, MCHC 31.5 L, RDW 15.9 H, RDW Differential 51.7 H, Plt Count 132 L, MPV 10.0, Immature Gran % (Auto) 0.100, Neut % (Auto) 85.4 H, Lymph % (Auto) 7.9 L, [place] % (Auto) 6.0, Eos % (Auto) 0.3, Baso % (Auto) 0.3, Absolute Neuts (auto) 6.5, Absolute Lymphs (auto) 0.60 L, Total Counted Not Reportable 06/14/18 02:35: Sodium 135 L, Potassium 4.3, Chloride 103, Carbon Dioxide 23.0, Anion Gap 9, BUN 48 H, Creatinine 2.73 H, Estim Creat Clear Calc 14.30, Est GFR (MDRD) Af Amer 21 L, Est GFR (MDRD) Non-Af 18 L, BUN/Creatinine Ratio 17.6, Glucose 114 H, Calcium 8.5 06/14/18 02:35: Troponin I < 0.015 06/14/18 05:45: Troponin I < 0.015 06/14/18 07:33: POC Glucose 105 06/14/18 08:46: Troponin I < 0.015 06/14/18 11:36: POC Glucose 128 H Diagnostic Data Abdomen/Pelvis CT 06/13/18 22:14 IMPRESSION: Evaluation is limited by lack of IV and oral contrast. Proximal left ureteral stone with mild hydroureter and hydronephrosis with perinephric fatty stranding. Additional renal nephrolithiasis. Small left pleural effusion. Chronic lung changes. However pulmonary vascular congestion. Small amount of fluid within the abdomen and pelvis. There is some mild thickening and mild stranding adjacent to the distal descending colon. Mild diverticulitis cannot be totally excluded. Right nephrectomy. Small amount of fluid within the right renal fossa. Small duodenal diverticulum. Status post hysterectomy. Slight prominence and heterogeneity to the vaginal cuff. Correlate with prior studies for stability versus follow-up nonemergent ultrasound. There is a small low-attenuation structure seen within the left kidney likely representing a cyst. Evaluation is somewhat limited by lack of IV contrast. Correlate with prior studies for stability. Ultrasound may be performed to further evaluate on a nonemergent basis Other findings as discussed above. Electronically Signed: Jay Dong, at 0:41 EDT Tel , Service support , Chest X-Ray 06/13/18 22:15 IMPRESSION: Pulmonary infiltrates secondary to pulmonary edema and/or pneumonia. Small pleural effusions Cardiomegaly Cardiac pacemaker Electronically Signed: [place], at 23:17 EDT Tel , Service support , Current Medications Acetaminophen (Tylenol) 650 mg PO Q6H PRN PRN PRN Reason: Non-cardiac pain (mod-severe) Hydrocodone Bitart/Acetaminophen ([place] 5mg-325mg) 1 - 2 tablet PO Q6H PRN PRN PRN Reason: Moderate-severe pain Allopurinol (Zyloprim) 100 mg PO DAILY [facility] Last Admin: 06/14/18 09:58 Dose: 100 mg Alprazolam (Xanax) 0.5 mg PO QHS [facility] Amiodarone HCl (Cordarone) 200 mg PO DAILY [facility] Last Admin: 06/14/18 09:58 Dose: 200 mg Artificial Tears (Tears Naturale, Artificial Tears) 1 drop EACH EYE TID [facility] Last Admin: 06/14/18 06:23 Dose: 1 drop Aspirin (Ecotrin) 81 mg PO DAILY [facility] Last Admin: 06/14/18 09:58 Dose: 81 mg [facility] Last Admin: 06/14/18 09:58 Dose: 325 mg Hydralazine HCl (Apresoline Iv) 10 mg IV Q4H PRN PRN PRN Reason: SBP > 160 Ceftriaxone Sodium (Rocephin) 1 gm in 50 mls @ 100 mls/hr IV QHS [facility] Last Admin: 06/14/18 03:18 Dose: 100 mls/hr Insulin Human Lispro (Humalog Kwikpen (Bkc)) 0 unit SC [facility]; Protocol Last Admin: 06/14/18 11:48 Dose: Not Given Metoprolol Tartrate (Lopressor (Beta Isa)) 25 mg PO BID [facility] Last Admin: 06/14/18 09:58 Dose: 25 mg Morphine Sulfate () 1 - 2 mg IV Q4H PRN PRN PRN Reason: PAIN Ondansetron HCl (Zofran) 4 mg IV Q8H PRN PRN PRN Reason: NAUSEA/VOMITING Sodium Chloride () 5 - 15 ml IV UD PRN PRN Reason: SALINE FLUSH Warfarin Sodium (Coumadin (Pbkc)) 3 mg PO DAILY@1700 [facility] Medical Necessity - Tobacco Use Smoking Status: Never smoker Tobacco Use: Non-smoker Assessment/Plan All Active Problems (Last Reviewed 06/14/18 @ 07:31 by Donta Hicks MD) LANIE (acute kidney injury) (Acute) Complicated urinary tract infection (Acute) Calculus of proximal left ureter (Acute) Hydroureter on left (Acute) Hydronephrosis, left (Acute) Left ureteral calculus (Acute) Congestive heart failure (Acute) 1. Acute on chronic heart failure with reduced EF BNP was >1000 CXR showed pulmonary infiltrates secondary to pulm edema and/or infiltrates as well as small pleural effusions not on lasix o/a of LANIE on CKD. fluid restriction cardiology consulted; awaiting rec's 2. LANIE on CKD Cr was 2/96 on admission, is down to 2.73 today. baseline Cr is ~ 2 CT abdomen showed proximal left ureteral stone wiht mild hydroureter and hydronephrosis with perinephric fatty stranding and additional renal nephrolithiasis. nephrology consulted nephrotoxic meds on hold will monitor 3.Left pyelonephritis had left flank pain on admission. CT abdomen as above. has right nephrectomy on IV rocephin urine culture urology reviewed and dont think she needs surgical intervention with stent placement 4. Type 2 diabetes mellitus: Insulin sliding scale. I will check CCA chest. Not on any oral medication or insulin. 5. Hypertension: On metoprolol. Bumex was held on account of AK on CKD. 6. Iron deficiency anemia: On iron supplements. Hemoglobin stable. Will monitor. 7. CAD status post CABG in 2017: On metoprolol. 8. History of A. fib: On Coumadin. INR is therapeutic 9. History of breast cancer: Status post partial mastectomy. Follow-up with oncology. 10. History of renal cell carcinoma status post nephrectomy: Stable. 11. History of SVT status post AICD: Stable. DVT prophylaxis; on coumadin Code status; DNRCCA Code Visit Inpatient E&M: 29741 [facility] Hosp L3
--- NOTE | 2018-06-14 13:18 | PN_ITS ---
Patient Problems: Active and Suspected Problems (Last Reviewed 06/14/18 @ 07:31 by Donta Hicks MD) LANIE (acute kidney injury) (Acute) Complicated urinary tract infection (Acute) Calculus of proximal left ureter (Acute) Hydroureter on left (Acute) Hydronephrosis, left (Acute) Left ureteral calculus (Acute) Congestive heart failure (Acute) Subjective: Patient seen and examined. She was admitted with a complaint of decreased urine output and left flank discomfort. She is being managed for acute decompensated heart failure, complicated UTI and Lanie on CKD. Patient feels better today. She denies any fever, chills, palpitations or dizziness, chest pain, diarrhea or vomiting. Review of systems otherwise negative. Labs and vitals reviewed. Plan was for urology to put in a stent today. However, after urology reviewed her CT scan, dont think there is any obstruction that requires a stent. Procedure therefore cancelled. Vitals/I&O's: Vital Signs Temp Pulse Resp BP Pulse Ox 97.8 F 105 H 16 94/64 94 06/14/18 09:55 06/14/18 10:59 06/14/18 09:55 06/14/18 09:55 06/14/18 09:55 Oxygen Delivery Method Room Air Weight: 184 lb 4.903 oz Body Mass Index (BMI) 30.7 Intake and Output for Last 24 Hours 06/12/18 06/13/18 06/14/18 23:59 23:59 23:59 Intake Total 360 / 360 Output Total 1050 / 1050 Balance -690 / -690 General: Alert, Oriented x3, Cooperative, No apparent distress HEENT: Atraumatic, PERRLA, EOMI, Normocephalic Oral: Moist Mucosa Neck: Supple, No JVD, Negative Carotid Bruits Lungs: Clear to auscultation, Normal air movement Cardiovascular: Regular rate, Regular Rhythm, Normal S1, Normal S2, No murmurs Abdomen: Bowel Sounds Present, Soft, Non Tender, Non-Distended, No Hepato-splenomegaly Extremities: No clubbing, No cyanosis, No edema, Capillary Refill Less than 3 Seconds Skin: No rashes, No breakdown Musculoskeletal: No Tenderness to Palpation of Joints or Extremities Lymphatic: No Cervical, Supraclavicular, or Inguinal Adenopathy Neurological: Cranial nerves II-XII grossly intact, Neuro grossly intact, Motor Exam 5/5 strength throughout Psych/Mental Status: Normal Affect, Appropriate, Alert and oriented to time, place, person, mood and affect Laboratory Results 06/13/18 22:40: WBC 8.0, RBC 4.18 L, Hgb 11.6 L, Hct 37.1, MCV 88.8, MCH 27.8, MCHC 31.3 L, RDW 16.0 H, RDW Differential 51.6 H, Plt Count 119 L, MPV 9.3, Immature Gran % (Auto) 0.000, Neut % (Auto) 88.0 H, Lymph % (Auto) 5.5 L, [place] % (Auto) 6.3, Eos % (Auto) 0.1, Baso % (Auto) 0.1, Absolute Neuts (auto) 7.0, Absolute Lymphs (auto) 0.44 L, Total Counted Not Reportable, Differential Comment SCANNED 06/13/18 22:40: Sodium 135 L, Potassium 4.4, Chloride 104, Carbon Dioxide 22.0, Anion Gap 9, BUN 48 H, Creatinine 2.96 H, Estim Creat Clear Calc 13.19, Est GFR (MDRD) Af Amer 20 L, Est GFR (MDRD) Non-Af 16 L, BUN/Creatinine Ratio 16.2, Glucose 156 H, Calcium 8.6 06/13/18 22:40: B-Natriuretic Peptide 1014.7 H 06/14/18 01:15: Urine Color Sol, Urine Clarity Cloudy, Urine pH 5.0, Ur Specific [place] 1.015, Urine Protein 100 H, Urine Glucose (UA) Normal, Urine Ketones 5 H, Urine Occult Blood 250 H, Urine Nitrite Positive H, Urine Bilirubin Negative, Urine Urobilinogen 1 H, Ur Leukocyte Esterase 500 H, Urine RBC 50-100 SEEN, Urine WBC 10-25 SEEN, Ur Squamous Epith Cells 0-5 SEEN, Urine Bacteria 2+, Urine Mucus 0 SEEN 06/14/18 02:35: PT 28.7 H, INR 2.7 06/14/18 02:35: Magnesium 2.6 06/14/18 02:35: WBC 7.6, RBC 4.06 L, Hgb 11.6 L, Hct 36.8 L, MCV 90.6, MCH 28.6, MCHC 31.5 L, RDW 15.9 H, RDW Differential 51.7 H, Plt Count 132 L, MPV 10.0, Immature Gran % (Auto) 0.100, Neut % (Auto) 85.4 H, Lymph % (Auto) 7.9 L, [place] % (Auto) 6.0, Eos % (Auto) 0.3, Baso % (Auto) 0.3, Absolute Neuts (auto) 6.5, Absolute Lymphs (auto) 0.60 L, Total Counted Not Reportable 06/14/18 02:35: Sodium 135 L, Potassium 4.3, Chloride 103, Carbon Dioxide 23.0, Anion Gap 9, BUN 48 H, Creatinine 2.73 H, Estim Creat Clear Calc 14.30, Est GFR (MDRD) Af Amer 21 L, Est GFR (MDRD) Non-Af 18 L, BUN/Creatinine Ratio 17.6, Glucose 114 H, Calcium 8.5 06/14/18 02:35: Troponin I < 0.015 06/14/18 05:45: Troponin I < 0.015 06/14/18 07:33: POC Glucose 105 06/14/18 08:46: Troponin I < 0.015 06/14/18 11:36: POC Glucose 128 H Diagnostic Data Abdomen/Pelvis CT 06/13/18 22:14 IMPRESSION: Evaluation is limited by lack of IV and oral contrast. Proximal left ureteral stone with mild hydroureter and hydronephrosis with perinephric fatty stranding. Additional renal nephrolithiasis. Small left pleural effusion. Chronic lung changes. However pulmonary vascular congestion. Small amount of fluid within the abdomen and pelvis. There is some mild thickening and mild stranding adjacent to the distal descending colon. Mild diverticulitis cannot be totally excluded. Right nephrectomy. Small amount of fluid within the right renal fossa. Small duodenal diverticulum. Status post hysterectomy. Slight prominence and heterogeneity to the vaginal cuff. Correlate with prior studies for stability versus follow-up nonemergent ultrasound. There is a small low-attenuation structure seen within the left kidney likely representing a cyst. Evaluation is somewhat limited by lack of IV contrast. Correlate with prior studies for stability. Ultrasound may be performed to further evaluate on a nonemergent basis Other findings as discussed above. Electronically Signed: Jay Dong, at 0:41 EDT Tel , Service support , Chest X-Ray 06/13/18 22:15 IMPRESSION: Pulmonary infiltrates secondary to pulmonary edema and/or pneumonia. Small pleural effusions Cardiomegaly Cardiac pacemaker Electronically Signed: [place], at 23:17 EDT Tel , Service support , Current Medications Acetaminophen (Tylenol) 650 mg PO Q6H PRN PRN PRN Reason: Non-cardiac pain (mod-severe) Hydrocodone Bitart/Acetaminophen ([place] 5mg-325mg) 1 - 2 tablet PO Q6H PRN PRN PRN Reason: Moderate-severe pain Allopurinol (Zyloprim) 100 mg PO DAILY [facility] Last Admin: 06/14/18 09:58 Dose: 100 mg Alprazolam (Xanax) 0.5 mg PO QHS [facility] Amiodarone HCl (Cordarone) 200 mg PO DAILY [facility] Last Admin: 06/14/18 09:58 Dose: 200 mg Artificial Tears (Tears Naturale, Artificial Tears) 1 drop EACH EYE TID [facility] Last Admin: 06/14/18 06:23 Dose: 1 drop Aspirin (Ecotrin) 81 mg PO DAILY [facility] Last Admin: 06/14/18 09:58 Dose: 81 mg [facility]ous S[facility] Last Admin: 06/14/18 09:58 Dose: 325 mg Hydralazine HCl (Apresoline Iv) 10 mg IV Q4H PRN PRN PRN Reason: SBP > 160 Ceftriaxone Sodium (Rocephin) 1 gm in 50 mls @ 100 mls/hr IV QHS [facility] Last Admin: 06/14/18 03:18 Dose: 100 mls/hr Insulin Human Lispro (Humalog Kwikpen (Bkc)) 0 unit SC [facility]; Protocol Last Admin: 06/14/18 11:48 Dose: Not Given Metoprolol Tartrate (Lopressor (Beta Isa)) 25 mg PO BID [facility] Last Admin: 06/14/18 09:58 Dose: 25 mg Morphine Sulfate () 1 - 2 mg IV Q4H PRN PRN PRN Reason: PAIN Ondansetron HCl (Zofran) 4 mg IV Q8H PRN PRN PRN Reason: NAUSEA/VOMITING Sodium Chloride () 5 - 15 ml IV UD PRN PRN Reason: SALINE FLUSH Warfarin Sodium (Coumadin (Pbkc)) 3 mg PO DAILY@1700 [facility] Medical Necessity - Tobacco Use Smoking Status: Never smoker Tobacco Use: Non-smoker Assessment/Plan All Active Problems (Last Reviewed 06/14/18 @ 07:31 by Donta Hicks MD) LANIE (acute kidney injury) (Acute) Complicated urinary tract infection (Acute) Calculus of proximal left ureter (Acute) Hydroureter on left (Acute) Hydronephrosis, left (Acute) Left ureteral calculus (Acute) Congestive heart failure (Acute) 1. Acute on chronic heart failure with reduced EF * BNP was >1000 * CXR showed pulmonary infiltrates secondary to pulm edema and/or infiltrates as well as small pleural effusions * not on lasix o/a of LANIE on CKD. * fluid restriction * cardiology consulted; awaiting rec's * 2. LANIE on CKD * Cr was 2/96 on admission, is down to 2.73 today. * baseline Cr is ~ 2 * CT abdomen showed proximal left ureteral stone wiht mild hydroureter and hydronephrosis with perinephric fatty stranding and additional renal nephrolithiasis. * nephrology consulted * nephrotoxic meds on hold * will monitor * 3.Left pyelonephritis * had left flank pain on admission. * CT abdomen as above. has right nephrectomy * on IV rocephin * urine culture urology reviewed and dont think she needs surgical intervention with stent placement * 4. Type 2 diabetes mellitus: Insulin sliding scale. I will check CCA chest. Not on any oral medication or insulin. 5. Hypertension: On metoprolol. Bumex was held on account of [place] on CKD. 6. Iron deficiency anemia: On iron supplements. Hemoglobin stable. Will monitor. 7. CAD status post CABG in 2017: On metoprolol. 8. History of A. fib: On Coumadin. INR is therapeutic 9. History of breast cancer: Status post partial mastectomy. Follow-up with oncology. 10. History of renal cell carcinoma status post nephrectomy: Stable. 11. History of SVT status post AICD: Stable. DVT prophylaxis; on coumadin Code status; DNRCCA Code Visit Inpatient E&M: [id number] Subs Hosp L3
--- NOTE | 2018-06-14 14:18 | US_ITS ---
STUDY: RENAL ULTRASOUND - COMPLETE REASON FOR EXAM: Female, 82 years old. Hydronephrosis TECHNIQUE: Ultrasound evaluation of the kidneys was performed with real-time and static ochoa-scale imaging. COMPARISON: January 03, 2018. FINDINGS: RIGHT KIDNEY: Surgically removed. DISTAL RIGHT URETER: There is non-visualization of the distal right ureter. There is no demonstrated right ureterovesical junction calculus. There is no demonstrated right ureteral jet. LEFT KIDNEY: Normal location of the left kidney, which is normal in size. The left kidney measures 11.2 x 4.2 x 4.6 cm. There is a normal cortex of the left kidney. There is mild hydronephrosis. There is a 3 mm proximal left ureteral stone. Multiple punctate hyperechoic structure within the kidney measuring up to 3 mm.. DISTAL LEFT URETER: There is non-visualization of the distal left ureter. There is no demonstrated left ureterovesical junction calculus. There is no demonstrated left ureteral jet. AORTA: Not seen. I.V.C.: The IVC is obscured. BLADDER: Not evaluated due to compression by Medrano catheter. US/Kidney and Bladder IMPRESSION: Limited study. Mild left hydronephrosis. There appears to be a small echogenic structure within the proximal ureter likely a stone causing the hydronephrosis. Multiple left nephrolithiasis. Right nephrectomy. Limited evaluation of the bladder due to decompression by Medrano catheter. However there is some mild bladder wall thickening which could be related to underdistention. However recommend urinalysis to further evaluate for any infectious process. Electronically Signed: Jay Dong, at 4:39 EDT Tel , Service support ,
--- NOTE | 2018-06-14 14:20 | PCM.CONS.R ---
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 Initially the pain was a dull ache. Pain progressed to a sharp pain later that morning. She was seen by her PCP complaining of decreased urinary output. She was started on Keflex for possible UTI and was instructed to increase her fluid intake. She presented to the emergency room with increased left flank pain. CT of the abdomen showed mild hydronephrosis and nephrolithiasis. She denied any history of fever or chills. She has a history of kidney stones with last event over 12 years ago. She complained of nausea yesterday with her antibiotics. Denied any chest pain with history of coronary artery disease s/p CABG, mitral valve replacement. She did have some shortness of breath with fluid hydration. She received Bumex IV in the emergency room. Currently she is on ceftriaxone and her urinary output has improved with IV Bumex. Medrano catheter inserted with scant blood clots. Creatinine on admission was 2.9 improved to 2.7 today. - Allergies Allergies: Allergies erythromycin base Adverse Reaction (Verified 06/13/18 21:45) Vomiting meperidine [From Demerol] Adverse Reaction (Verified 06/13/18 21:45) Vomiting - Current Medications Current Medications: Current Medications Acetaminophen (Tylenol) 650 mg PO Q6H PRN PRN PRN Reason: Non-cardiac pain (mod-severe) Hydrocodone Bitart/Acetaminophen ([place] 5mg-325mg) 1 - 2 tablet PO Q6H PRN PRN PRN Reason: Moderate-severe pain Allopurinol (Zyloprim) 100 mg PO DAILY ON LICENSE OF [facility] Last Admin: 06/14/18 09:58 Dose: 100 mg Alprazolam (Xanax) 0.5 mg PO QHS ON LICENSE OF [facility] Amiodarone HCl (Cordarone) 200 mg PO DAILY ON LICENSE OF [facility] Last Admin: 06/14/18 09:58 Dose: 200 mg Artificial Tears (Tears Naturale, Artificial Tears) 1 drop EACH EYE TID ON LICENSE OF [facility] Last Admin: 06/14/18 13:55 Dose: Not Given Aspirin (Ecotrin) 81 mg PO DAILY ON LICENSE OF [facility] Last Admin: 06/14/18 09:58 Dose: 81 mg Ferrous Sulfate [facility]ous Sulfate) [facility] Last Admin: 06/14/18 09:58 Dose: 325 mg Hydralazine HCl (Apresoline Iv) 10 mg IV Q4H PRN PRN PRN Reason: SBP > 160 Ceftriaxone Sodium (Rocephin) 1 gm in 50 mls @ 100 mls/hr IV QHS ON LICENSE OF [facility] Last Admin: 06/14/18 03:18 Dose: 100 mls/hr Insulin Human Lispro (Humalog Kwikpen (Bkc)) 0 unit SC ACHS ON LICENSE OF [facility]; Protocol Last Admin: 06/14/18 11:48 Dose: Not Given Metoprolol Tartrate (Lopressor (Beta Isa)) 25 mg PO BID ON LICENSE OF [facility] Last Admin: 06/14/18 09:58 Dose: 25 mg Morphine Sulfate () 1 - 2 mg IV Q4H PRN PRN PRN Reason: PAIN Ondansetron HCl (Zofran) 4 mg IV Q8H PRN PRN PRN Reason: NAUSEA/VOMITING Sodium Chloride () 5 - 15 ml IV UD PRN PRN Reason: SALINE FLUSH Warfarin Sodium (Coumadin (Pbkc)) 3 mg PO DAILY@1700 ON LICENSE OF [facility] - Past Medical History Past Medical History (Chronic Problems): Chronic Problems (Last Reviewed 06/14/18 @ 07:31 by Donta Hicks MD) Persistent atrial fibrillation (Chronic) History of mitral valve replacement with bioprosthetic valve (Chronic ~01/18/17) 27mm [place] Epic bioprosthesis 01/18/17 Essential hypertension (Chronic) Ventricular tachyarrhythmia (Chronic) H/O coronary artery bypass surgery (Chronic ~01/18/17) S/P bypass [place] [address] 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 marginal branch Presence of implantable cardioverter-defibrillator (ICD) (Chronic ~05/10/09) [employer] 05/10/2009 Secondary pulmonary arterial hypertension (Chronic) Ischemic cardiomyopathy (Chronic) Atherosclerosis of coronary artery of [place] heart without angina pectoris (Chronic) S/P bypass surgery [place] [address] 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 marginal branch rn long term care (current) use of 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 (Chronic) Acute on chronic systolic CHF (congestive heart failure) (Chronic) Chronic kidney disease, stage 3 (Chronic) Type 2 diabetes mellitus (Chronic) Status post right nephrectomy (Chronic) Status post implantation of automatic cardioverter/defibrillator (AICD) (Chronic) History of breast cancer (Chronic) History of renal cell carcinoma (Chronic) - Past Surgical History Surgical History: appendectomy, cholecystectomy, tonsillectomy, - - hysterectomy, mastectomy, nephrectomy - Social History Smoking Status: Never smoker Alcohol: None Drugs: None - Family History Maternal Family History: Family History (Last Reviewed 06/14/18 @ 07:31 by Donta Hicks MD) Brother CAD (coronary artery disease) History Items: Unknown - Patient states she does not know her maternal family history but believes she was healthy. Paternal Family History: Family History (Last Reviewed 06/14/18 @ 07:31 by Donta Hicks MD) Brother CAD (coronary artery disease) History Items: Unknown - Patient states she does not know her paternal family history but notes he was healthy. Sibling Family History: Family History (Last Reviewed 06/14/18 @ 07:31 by Donta Hicks MD) Brother CAD (coronary artery disease) History Items: Heart Disease Review of Systems Constitutional: Reports: Anorexia. Denies: Chills, Fever, Weakness Eyes: Denies: Vision Change HEENT: Denies: Head Aches Cardiovascular: Denies: Chest Pain, Edema, Syncope Respiratory: Reports: Shortness of Breath. Denies: Cough Gastrointestinal: Reports: Abdominal Pain - Left flank pain, Nausea. Denies: Constipation, Diarrhea, Vomiting Genitourinary: Reports: - - Decreased urine output. Denies: Hematuria Musculoskeletal: Reports: - - Left flank and groin pain Skin: Denies: Rash Patient Problems: Active and Suspected Problems (Last Reviewed 06/14/18 @ 07:31 by Donta Hicks MD) LANIE (acute kidney injury) (Acute) Complicated urinary tract infection (Acute) Calculus of proximal left ureter (Acute) Hydroureter on left (Acute) Hydronephrosis, left (Acute) Left ureteral calculus (Acute) Congestive heart failure (Acute) - Physical Exam General: Alert, Oriented x3, Cooperative, No apparent distress HEENT: PERRLA, EOMI Neck: Supple Lungs: Clear to auscultation Cardiovascular: Regular rate, Murmur Abdomen: Bowel Sounds Present, Soft, Non Tender, Non-Distended Extremities: No edema Skin: No rashes Musculoskeletal: No Muscle Wasting Neurological: Cranial nerves II-XII grossly intact Psych/Mental Status: Normal Affect, Appropriate, Alert and oriented to time, place, person, mood and affect Vital Signs Temp Pulse Resp BP Pulse Ox 97.8 F 105 H 16 94/64 94 06/14/18 09:55 06/14/18 10:59 06/14/18 09:55 06/14/18 09:55 06/14/18 09:55 Oxygen Delivery Method Room Air Weight: 83.6 kg Body Mass Index (BMI) 30.7 Intake and Output for Last 24 Hours 06/12/18 06/13/18 06/14/18 23:59 23:59 23:59 Intake Total 360 / 360 Output Total 1050 / 1050 Balance -690 / -690 Laboratory Tests Past 24 Hrs 06/13/18 06/13/18 06/13/18 22:40 22:40 22:40 WBC 8.0 RBC 4.18 L Hgb 11.6 L Hct 37.1 MCV 88.8 MCH 27.8 MCHC 31.3 L RDW 16.0 H RDW Differential 51.6 H Plt Count 119 L MPV 9.3 Immature Gran % (Auto) 0.000 Neut % (Auto) 88.0 H Lymph % (Auto) 5.5 L [place] % (Auto) 6.3 Eos % (Auto) 0.1 Baso % (Auto) 0.1 Absolute Neuts (auto) 7.0 Absolute Lymphs (auto) 0.44 L Total Counted Not Reportable Differential Comment SCANNED PT INR Sodium 135 L Potassium 4.4 Chloride 104 Carbon Dioxide 22.0 Anion Gap 9 BUN 48 H Creatinine 2.96 H Estim Creat Clear Calc 13.19 Est GFR (MDRD) Af Amer 20 L Est GFR (MDRD) Non-Af 16 L BUN/Creatinine Ratio 16.2 Glucose 156 H Calcium 8.6 Magnesium Troponin I B-Natriuretic Peptide 1014.7 H Urine Color Urine Clarity Urine pH Ur Specific [place] Urine Protein Urine Glucose (UA) Urine Ketones Urine Occult Blood Urine Nitrite Urine Bilirubin Urine Urobilinogen Ur Leukocyte Esterase Urine RBC Urine WBC Ur Squamous Epith Cells Urine Bacteria Urine Mucus 06/14/18 06/14/18 06/14/18 01:15 02:35 02:35 WBC RBC Hgb Hct MCV MCH MCHC RDW RDW Differential Plt Count MPV Immature Gran % (Auto) Neut % (Auto) Lymph % (Auto) [place] % (Auto) Eos % (Auto) Baso % (Auto) Absolute Neuts (auto) Absolute Lymphs (auto) Total Counted Differential Comment PT 28.7 H INR 2.7 Sodium Potassium Chloride Carbon Dioxide Anion Gap BUN Creatinine Estim Creat Clear Calc Est GFR (MDRD) Af Amer Est GFR (MDRD) Non-Af BUN/Creatinine Ratio Glucose Calcium Magnesium 2.6 Troponin I B-Natriuretic Peptide Urine Color Sol Urine Clarity Cloudy Urine pH 5.0 Ur Specific [place] 1.015 Urine Protein 100 H Urine Glucose (UA) Normal Urine Ketones 5 H Urine Occult Blood 250 H Urine Nitrite Positive H Urine Bilirubin Negative Urine Urobilinogen 1 H Ur Leukocyte Esterase 500 H Urine RBC 50-100 SEEN Urine WBC 10-25 SEEN Ur Squamous Epith Cells 0-5 SEEN Urine Bacteria 2+ Urine Mucus 0 SEEN 06/14/18 06/14/18 06/14/18 02:35 02:35 02:35 WBC 7.6 RBC 4.06 L Hgb 11.6 L Hct 36.8 L MCV 90.6 MCH 28.6 MCHC 31.5 L RDW 15.9 H RDW Differential 51.7 H Plt Count 132 L MPV 10.0 Immature Gran % (Auto) 0.100 Neut % (Auto) 85.4 H Lymph % (Auto) 7.9 L [place] % (Auto) 6.0 Eos % (Auto) 0.3 Baso % (Auto) 0.3 Absolute Neuts (auto) 6.5 Absolute Lymphs (auto) 0.60 L Total Counted Not Reportable Differential Comment PT INR Sodium 135 L Potassium 4.3 Chloride 103 Carbon Dioxide 23.0 Anion Gap 9 BUN 48 H Creatinine 2.73 H Estim Creat Clear Calc 14.30 Est GFR (MDRD) Af Amer 21 L Est GFR (MDRD) Non-Af 18 L BUN/Creatinine Ratio 17.6 Glucose 114 H Calcium 8.5 Magnesium Troponin I < 0.015 B-Natriuretic Peptide Urine Color Urine Clarity Urine pH Ur Specific [place] Urine Protein Urine Glucose (UA) Urine Ketones Urine Occult Blood Urine Nitrite Urine Bilirubin Urine Urobilinogen Ur Leukocyte Esterase Urine RBC Urine WBC Ur Squamous Epith Cells Urine Bacteria Urine Mucus 06/14/18 06/14/18 05:45 08:46 WBC RBC Hgb Hct MCV MCH MCHC RDW RDW Differential Plt Count MPV Immature Gran % (Auto) Neut % (Auto) Lymph % (Auto) [place] % (Auto) Eos % (Auto) Baso % (Auto) Absolute Neuts (auto) Absolute Lymphs (auto) Total Counted Differential Comment PT INR Sodium Potassium Chloride Carbon Dioxide Anion Gap BUN Creatinine Estim Creat Clear Calc Est GFR (MDRD) Af Amer Est GFR (MDRD) Non-Af BUN/Creatinine Ratio Glucose Calcium Magnesium Troponin I < 0.015 < 0.015 B-Natriuretic Peptide Urine Color Urine Clarity Urine pH Ur Specific [place] Urine Protein Urine Glucose (UA) Urine Ketones Urine Occult Blood Urine Nitrite Urine Bilirubin Urine Urobilinogen Ur Leukocyte Esterase Urine RBC Urine WBC Ur Squamous Epith Cells Urine Bacteria Urine Mucus POC Glucose 06/14/18 06/14/18 11:36 07:33 POC Glucose 128 H 105 Assessment/Plan All Active Problems (Last Reviewed 06/14/18 @ 07:31 by Donta Hicks MD) LANIE (acute kidney injury) (Acute) Complicated urinary tract infection (Acute) Calculus of proximal left ureter (Acute) Hydroureter on left (Acute) Hydronephrosis, left (Acute) Left ureteral calculus (Acute) Congestive heart failure (Acute) 1. Acute kidney injury on chronic kidney disease stage IV due to obstructive kidney stone in solitary kidney. 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 Baseline creatinine 1.8-2.0 increased to 2.96 on admission. Creatinine improved to 2.7 today. History of decreased urinary output. Urine output improved with IV Bumex given in the emergency room. Continue to monitor renal function. Hold on further Bumex since patient does not appear fluid overloaded at this time. If renal function improved without worsening hydronephrosis on ultrasound, patient may be discharged to home tomorrow. 2. UTI started on oral Keflex as outpatient by PCP now on IV ceftriaxone. Likely due to obstructive uropathy from kidney stone. Check urine C/S 3. Obstructed kidney stone in solitary kidney. Left flank pain improved. Currently nonoliguric. CT of the abdomen with mild hydronephrosis and hydroureter. Check kidney ultrasound this afternoon. Urology consulted. Surgical intervention on hold at this time. 4. CAD status post CABG, MVR of atrial fibrillation with defibrillator 5. History of renal cell cancer status post right nephrectomy. 6. DM type II primary service management 7. Hypertension stable blood pressure
--- NOTE | 2018-06-14 14:25 | CON.PCM_ITS ---
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 Initially the pain was a dull ache. Pain progressed to a sharp pain later that morning. She was seen by her PCP complaining of decreased urinary output. She was started on Keflex for possible UTI and was instructed to increase her fluid intake. She presented to the emergency room with increased left flank pain. CT of the abdomen showed mild hydronephrosis and nephrolithiasis. She denied any history of fever or chills. She has a history of kidney stones with last event over 12 years ago. She com plained of nausea yesterday with her antibiotics. Denied any chest pain with history of coronary artery disease s/p CABG, mitral valve replacement. She did have some shortness of breath with fluid hydration. She received Bumex IV in the emergency room. Currently she is on ceftriaxone and her urinary output has improved with IV Bumex. Medrano catheter inserted with scant blood clots. Creatinine on admission was 2.9 improved to 2.7 today. - Allergies Allergies: Allergies erythromycin base Adverse Reaction (Verified 06/13/18 21:45) Vomiting meperidine [From Demerol] Adverse Reaction (Verified 06/13/18 21:45) Vomiting - Current Medications Current Medications: Current Medications Acetaminophen (Tylenol) 650 mg PO Q6H PRN PRN PRN Reason: Non-cardiac pain (mod-severe) Hydrocodone Bitart/Acetaminophen ([place] 5mg-325mg) 1 - 2 tablet PO Q6H PRN PRN PRN Reason: Moderate-severe pain Allopurinol (Zyloprim) 100 mg PO DAILY [facility] Last Admin: 06/14/18 09:58 Dose: 100 mg Alprazolam (Xanax) 0.5 mg PO QHS [facility] Amiodarone HCl (Cordarone) 200 mg PO DAILY [facility] Last Admin: 06/14/18 09:58 Dose: 200 mg Artificial Tears (Tears Naturale, Artificial Tears) 1 drop EACH EYE TID [facility] Last Admin: 06/14/18 13:55 Dose: Not Given Aspirin (Ecotrin) 81 mg PO DAILY [facility] Last Admin: 06/14/18 09:58 Dose: 81 mg [facility]ous [facility] S[facility] Admin: 06/14/18 09:58 Dose: 325 mg Hydralazine HCl (Apresoline Iv) 10 mg IV Q4H PRN PRN PRN Reason: SBP > 160 Ceftriaxone Sodium (Rocephin) 1 gm in 50 mls @ 100 mls/hr IV QHS [facility] Last Admin: 06/14/18 03:18 Dose: 100 mls/hr Insulin Human Lispro (Humalog Kwikpen (Bkc)) 0 unit SC ACHS [facility]; Protocol Last Admin: 06/14/18 11:48 Dose: Not Given Metoprolol Tartrate (Lopressor (Beta Isa)) 25 mg PO BID [facility] Last Admin: 06/14/18 09:58 Dose: 25 mg Morphine Sulfate () 1 - 2 mg IV Q4H PRN PRN PRN Reason: PAIN Ondansetron HCl (Zofran) 4 mg IV Q8H PRN PRN PRN Reason: NAUSEA/VOMITING Sodium Chloride () 5 - 15 ml IV UD PRN PRN Reason: SALINE FLUSH Warfarin Sodium (Coumadin (Pbkc)) 3 mg PO DAILY@1700 [facility] - Past Medical History Past Medical History (Chronic Problems): Chronic Problems (Last Reviewed 06/14/18 @ 07:31 by Donta Hicks MD) Persistent atrial fibrillation (Chronic) History of mitral valve replacement with bioprosthetic valve (Chronic ~01/18/17) 27mm [place] Epic bioprosthesis 01/18/17 Essential hypertension (Chronic) Ventricular tachyarrhythmia (Chronic) H/O coronary artery bypass surgery (Chronic ~01/18/17) S/P bypass [place] [address] 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 marginal branch Presence of implantable cardioverter-defibrillator (ICD) (Chronic ~05/10/09) [employer] 05/10/2009 Secondary pulmonary arterial hypertension (Chronic) Ischemic cardiomyopathy (Chronic) Atherosclerosis of coronary artery of [place] heart without angina pectoris (Chronic) S/P bypass surgery [place] [address] 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) use of 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 (Chronic) Acute on chronic systolic CHF (congestive heart failure) (Chronic) Chronic kidney disease, stage 3 (Chronic) Type 2 diabetes mellitus (Chronic) Status post right nephrectomy (Chronic) Status post implantation of automatic cardioverter/defibrillator (AICD) (Chronic) History of breast cancer (Chronic) History of renal cell carcinoma (Chronic) - Past Surgical History Surgical History: appendectomy, cholecystectomy, tonsillectomy, - - hysterectomy, mastectomy, nephrectomy - Social History Smoking Status: Never smoker Alcohol: None Drugs: None - Family History Maternal Family History: Family History (Last Reviewed 06/14/18 @ 07:31 by Donta Hicks MD) Brother CAD (coronary artery disease) History Items: Unknown - Patient states she does not know her maternal family history but believes she was healthy. Paternal Family History: Family History (Last Reviewed 06/14/18 @ 07:31 by Donta Hicks MD) Brother CAD (coronary artery disease) History Items: Unknown - Patient states she does not know her paternal family history but notes he was healthy. Sibling Family History: Family History (Last Reviewed 06/14/18 @ 07:31 by Donta Hicks MD) Brother CAD (coronary artery disease) History Items: Heart Disease Review of Systems Constitutional: Reports: Anorexia. Denies: Chills, Fever, Weakness Eyes: Denies: Vision Change HEENT: Denies: Head Aches Cardiovascular: Denies: Chest Pain, Edema, Syncope Respiratory: Reports: Shortness of Breath. Denies: Cough Gastrointestinal: Reports: Abdominal Pain - Left flank pain, Nausea. Denies: Constipation, Diarrhea, Vomiting Genitourinary: Reports: - - Decreased urine output. Denies: Hematuria Musculoskeletal: Reports: - - Left flank and groin pain Skin: Denies: Rash Patient Problems: Active and Suspected Problems (Last Reviewed 06/14/18 @ 07:31 by Donta Hicks MD) LANIE (acute kidney injury) (Acute) Complicated urinary tract infection (Acute) Calculus of proximal left ureter (Acute) Hydroureter on left (Acute) Hydronephrosis, left (Acute) Left ureteral calculus (Acute) Congestive heart failure (Acute) - Physical Exam General: Alert, Oriented x3, Cooperative, No apparent distress HEENT: PERRLA, EOMI Neck: Supple Lungs: Clear to auscultation Cardiovascular: Regular rate, Murmur Abdomen: Bowel Sounds Present, Soft, Non Tender, Non-Distended Extremities: No edema Skin: No rashes Musculoskeletal: No Muscle Wasting Neurological: Cranial nerves II-XII grossly intact Psych/Mental Status: Normal Affect, Appropriate, Alert and oriented to time, place, person, mood and affect Vital Signs Temp Pulse Resp BP Pulse Ox 97.8 F 105 H 16 94/64 94 06/14/18 09:55 06/14/18 10:59 06/14/18 09:55 06/14/18 09:55 06/14/18 09:55 Oxygen Delivery Method Room Air Weight: 83.6 kg Body Mass Index (BMI) 30.7 Intake and Output for Last 24 Hours 06/12/18 06/13/18 06/14/18 23:59 23:59 23:59 Intake Total 360 / 360 Output Total 1050 / 1050 Balance -690 / -690 Laboratory Tests Past 24 Hrs 06/13/18 06/13/18 06/13/18 22:40 22:40 22:40 WBC 8.0 RBC 4.18 L Hgb 11.6 L Hct 37.1 MCV 88.8 MCH 27.8 MCHC 31.3 L RDW 16.0 H RDW Differential 51.6 H Plt Count 119 L MPV 9.3 Immature Gran % (Auto) 0.000 Neut % (Auto) 88.0 H Lymph % (Auto) 5.5 L [place] % (Auto) 6.3 Eos % (Auto) 0.1 Baso % (Auto) 0.1 Absolute Neuts (auto) 7.0 Absolute Lymphs (auto) 0.44 L Total Counted Not Reportable Differential Comment SCANNED PT INR Sodium 135 L Potassium 4.4 Chloride 104 Carbon Dioxide 22.0 Anion Gap 9 BUN 48 H Creatinine 2.96 H Estim Creat Clear Calc 13.19 Est GFR (MDRD) Af Amer 20 L Est GFR (MDRD) Non-Af 16 L BUN/Creatinine Ratio 16.2 Glucose 156 H Calcium 8.6 Magnesium Troponin I B-Natriuretic Peptide 1014.7 H Urine Color Urine Clarity Urine pH Ur Specific [place] Urine Protein Urine Glucose (UA) Urine Ketones Urine Occult Blood Urine Nitrite Urine Bilirubin Urine Urobilinogen Ur Leukocyte Esterase Urine RBC Urine WBC Ur Squamous Epith Cells Urine Bacteria Urine Mucus 06/14/18 06/14/18 06/14/18 01:15 02:35 02:35 WBC RBC Hgb Hct MCV MCH MCHC RDW RDW Differential Plt Count MPV Immature Gran % (Auto) Neut % (Auto) Lymph % (Auto) [place] % (Auto) Eos % (Auto) Baso % (Auto) Absolute Neuts (auto) Absolute Lymphs (auto) Total Counted Differential Comment PT 28.7 H INR 2.7 Sodium Potassium Chloride Carbon Dioxide Anion Gap BUN Creatinine Estim Creat Clear Calc Est GFR (MDRD) Af Amer Est GFR (MDRD) Non-Af BUN/Creatinine Ratio Glucose Calcium Magnesium 2.6 Troponin I B-Natriuretic Peptide Urine Color Sol Urine Clarity Cloudy Urine pH 5.0 Ur Specific [place] 1.015 Urine Protein 100 H Urine Glucose (UA) Normal Urine Ketones 5 H Urine Occult Blood 250 H Urine Nitrite Positive H Urine Bilirubin Negative Urine Urobilinogen 1 H Ur Leukocyte Esterase 500 H Urine RBC 50-100 SEEN Urine WBC 10-25 SEEN Ur Squamous Epith Cells 0-5 SEEN Urine Bacteria 2+ Urine Mucus 0 SEEN 06/14/18 06/14/18 06/14/18 02:35 02:35 02:35 WBC 7.6 RBC 4.06 L Hgb 11.6 L Hct 36.8 L MCV 90.6 MCH 28.6 MCHC 31.5 L RDW 15.9 H RDW Differential 51.7 H Plt Count 132 L MPV 10.0 Immature Gran % (Auto) 0.100 Neut % (Auto) 85.4 H Lymph % (Auto) 7.9 L [place] % (Auto) 6.0 Eos % (Auto) 0.3 Baso % (Auto) 0.3 Absolute Neuts (auto) 6.5 Absolute Lymphs (auto) 0.60 L Total Counted Not Reportable Differential Comment PT INR Sodium 135 L Potassium 4.3 Chloride 103 Carbon Dioxide 23.0 Anion Gap 9 BUN 48 H Creatinine 2.73 H Estim Creat Clear Calc 14.30 Est GFR (MDRD) Af Amer 21 L Est GFR (MDRD) Non-Af 18 L BUN/Creatinine Ratio 17.6 Glucose 114 H Calcium 8.5 Magnesium Troponin I < 0.015 B-Natriuretic Peptide Urine Color Urine Clarity Urine pH Ur Specific [place] Urine Protein Urine Glucose (UA) Urine Ketones Urine Occult Blood Urine Nitrite Urine Bilirubin Urine Urobilinogen Ur Leukocyte Esterase Urine RBC Urine WBC Ur Squamous Epith Cells Urine Bacteria Urine Mucus 06/14/18 06/14/18 05:45 08:46 WBC RBC Hgb Hct MCV MCH MCHC RDW RDW Differential Plt Count MPV Immature Gran % (Auto) Neut % (Auto) Lymph % (Auto) [place] % (Auto) Eos % (Auto) Baso % (Auto) Absolute Neuts (auto) Absolute Lymphs (auto) Total Counted Differential Comment PT INR Sodium Potassium Chloride Carbon Dioxide Anion Gap BUN Creatinine Estim Creat Clear Calc Est GFR (MDRD) Af Amer Est GFR (MDRD) Non-Af BUN/Creatinine Ratio Glucose Calcium Magnesium Troponin I < 0.015 < 0.015 B-Natriuretic Peptide Urine Color Urine Clarity Urine pH Ur Specific [place] Urine Protein Urine Glucose (UA) Urine Ketones Urine Occult Blood Urine Nitrite Urine Bilirubin Urine Urobilinogen Ur Leukocyte Esterase Urine RBC Urine WBC Ur Squamous Epith Cells Urine Bacteria Urine Mucus POC Glucose 06/14/18 06/14/18 11:36 07:33 POC Glucose 128 H 105 Assessment/Plan All Active Problems (Last Reviewed 06/14/18 @ 07:31 by Donta Hicks MD) LANIE (acute kidney injury) (Acute) Complicated urinary tract infection (Acute) Calculus of proximal left ureter (Acute) Hydroureter on left (Acute) Hydronephrosis, left (Acute) Left ureteral calculus (Acute) Congestive heart failure (Acute) 1. Acute kidney injury on chronic kidney disease stage IV due to obstructive kidney stone in solitary kidney. 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 Baseline creatinine 1.8-2.0 increased to 2.96 on admission. Creatinine improved to 2.7 today. History of decreased urinary output. Urine output improved with IV Bumex given in the emergency room. Continue to monitor renal function. Hold on further Bumex since patient does not appear fluid overloaded at this time. If renal function improved without worsening hydronephrosis on ultrasound, patient may be discharged to home tomorrow. 2. UTI started on oral Keflex as outpatient by PCP now on IV ceftriaxone. Likely due to obstructive uropathy from kidney stone. Check urine C/S 3. Obstructed kidney stone in solitary kidney. Left flank pain improved. Currently nonoliguric. CT of the abdomen with mild hydronephrosis and hydroureter. Check kidney ultrasound this afternoon. Urology consulted. Surgical intervention on hold at this time. 4. CAD status post CABG, MVR of atrial fibrillation with defibrillator 5. History of renal cell cancer status post right nephrectomy. 6. DM type II primary service management 7. Hypertension stable blood pressure
--- NOTE | 2018-06-14 15:11 | PCM.CONS.C ---
Problem List (1) Congestive heart failure Status: Acute (2) H/O coronary artery bypass surgery Status: Chronic Comment: S/P bypass [place] [address] 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 marginal branch (3) Presence of implantable cardioverter-defibrillator (ICD) Status: Chronic Comment: [employer] 05/10/2009 (4) Atherosclerosis of coronary artery of [place] heart without angina pectoris Status: Chronic Qualifiers: Coronary Disease-Associated Artery/Lesion type: [place] artery Qualified Code(s): I25.10 - Atherosclerotic heart disease of [place] coronary artery without angina pectoris Comment: S/P bypass surgery [place] [address] 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 marginal branch (5) Acute on chronic systolic CHF (congestive heart failure) Status: Chronic (6) Paroxysmal atrial fibrillation Status: Acute (7) History of mitral valve replacement with bioprosthetic valve Status: Chronic Comment: 27mm [employer] Epic bioprosthesis 01/18/17 Reason for Consult Date of Consultation: 06/14/18 Reason for Consultation: Coronary artery disease, status post CABG, status post aortic valve replacement, paroxysmal atrial fibrillation, LV dysfunction, status post AICD History of Present Illness: Details: Keren Florez, is a 82 F with a history of coronary artery disease status post bypass with Dr. Núñez in December 2016 with a ANGULO to the LAD and reverse SVG to obtuse marginal branch, status post left atrial appendage with a 35 mm Atricure clip, mitral valve insufficiency status post mitral valve repair in December 2016 with a 27 mm [place] epic bioprosthesis, dilated cardiomyopathy, hypertension, hyperlipidemia, status post AICD defibrillator, SVT in which she follows with Dr. Hernandez, breast cancer status post chemotherapy,renal carcinoma status post nephrectomy, and chronic renal insufficiency stage III. She also has a history of paroxysmal atrial fibrillation on chronic amiodarone and Coumadin therapy. Patient was in normal health up until the day of admission when she developed severe back pain, and hematuria. Patient felt that she may have had a kidney stone, and drinks a copious amount of fluids in order to try and flush it out. Unfortunately this precipitated congestive heart failure requiring her to seek medical attention for shortness of breath. She sought medical attention Dr. Rios's office within referred to the emergency room. In the emergency room she was found to have significant back pain, and was diagnosed with a ureteral stone. She was placed on ceftriaxone antibiotic therapy, given morphine for her pain. A Medrano catheter was placed with vida hematuria. The patient subsequently was given IV Bumex to diurese her and is now doing quite well. Her back pain is completely resolved although her hematuria is still present in her Medrano bag. She is able to lay down flat without difficulty and has no orthopnea or PND. Prior to this she denied any palpitations, chest pain, angina, shortness of breath or dyspnea on exertion. She reports she is compliant with her medications. [] Past Medical History Allergies/Adverse Reactions: Allergies erythromycin base Adverse Reaction (Verified 06/13/18 21:45) Vomiting meperidine [From Demerol] Adverse Reaction (Verified 06/13/18 21:45) Vomiting Home Medications: Ambulatory Orders Medication Instructions Recorded Niacin 250 mg PO DAILY 12/23/16 alprazolam 0.5 mg tablet 0.5 mg PO QHS tab 03/19/17 metoprolol tartrate 25 mg tablet 25 mg PO BID 03/19/17 amiodarone 200 mg tablet 200 mg PO DAILY 90 Days #90 tab 04/19/17 Aspirin E.C. [Ecotrin] 81 mg PO DAILY 11/05/17 C,E,Zinc,Copper 11/Qfhbn1y/Lut 1 tab PO DAILY 11/05/17 [Ocuvite Adult 50 Plus Softgel] Calcium Carbonate/Vitamin D3 1 tab PO DAILY 11/05/17 [Calcium 600-Vit D3 200 Tablet] Carboxymethylcellulose Sodium 1 drp EACH EYE TID 11/05/17 [Refresh Tears] Ferrous Sulfate [Iron] 325 mg PO DAILY 11/05/17 Magnesium Oxide 400 mg PO DAILY 11/05/17 bumetanide 1 mg tablet 1 mg PO DAILY #1 tab 05/02/18 warfarin 3 mg tablet 3 mg PO DAILY #90 tab 05/13/18 Allopurinol 100 mg PO DAILY 06/14/18 Cephalexin [Keflex] 500 mg PO BID 06/14/18 Past Medical History (Chronic Problems): Chronic Problems (Last Reviewed 06/14/18 @ 07:31 by Donta Hicks MD) Persistent atrial fibrillation (Chronic) History of mitral valve replacement with bioprosthetic valve (Chronic ~01/18/17) 27mm [employer] Epic bioprosthesis 01/18/17 Essential hypertension (Chronic) Ventricular tachyarrhythmia (Chronic) H/O coronary artery bypass surgery (Chronic ~01/18/17) S/P bypass [place] [address] 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 marginal branch Presence of implantable cardioverter-defibrillator (ICD) (Chronic ~05/10/09) [employer] 05/10/2009 Secondary pulmonary arterial hypertension (Chronic) Ischemic cardiomyopathy (Chronic) Atherosclerosis of coronary artery of [place] heart without angina pectoris (Chronic) S/P bypass surgery [place] [address] 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 marginal branch detention (current) use of 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 (Chronic) Acute on chronic systolic CHF (congestive heart failure) (Chronic) Chronic kidney disease, stage 3 (Chronic) Type 2 diabetes mellitus (Chronic) Status post right nephrectomy (Chronic) Status post implantation of automatic cardioverter/defibrillator (AICD) (Chronic) History of breast cancer (Chronic) History of renal cell carcinoma (Chronic) Surgical History: appendectomy, cholecystectomy, tonsillectomy, - - hysterectomy, mastectomy, nephrectomy - *Family History Maternal Family History: Family History (Last Reviewed 06/14/18 @ 07:31 by Donta Hicks MD) Brother CAD (coronary artery disease) History Items: Unknown - Patient states she does not know her maternal family history but believes she was healthy. Paternal Family History: Family History (Last Reviewed 06/14/18 @ 07:31 by Donta Hicks MD) Brother CAD (coronary artery disease) History Items: Unknown - Patient states she does not know her paternal family history but notes he was healthy. Sibling Family History: Family History (Last Reviewed 06/14/18 @ 07:31 by Donta Hicks MD) Brother CAD (coronary artery disease) History Items: Heart Disease Smoking Status: Never smoker Tobacco Use: Non-smoker Alcohol: None Drugs: None Review of Systems - Review of Systems General: Denies: Fever, Night Sweats, Fatigue Cardiovascular: Reports: Shortness of Breath, Shortness of Breath at Rest. Denies: Chest Discomfort, Orthopnea, PND, Peripheral Edema, Palpitations, Lightheadedness, Dizziness, Near Syncope, Syncope Respiratory: Denies: Cough, Sputum Production, Hemoptysis Gastrointestinal: Denies: Hematemesis, Hematochezia, Melena Genitourinary: Reports: Hematuria. Denies: Dysuria Skin: Denies: Rash Subjectve: Patient laying in bed, no acute distress. Objective: Vital Signs Temp Pulse Resp BP Pulse Ox 97.8 F 105 H 16 94/64 94 06/14/18 09:55 06/14/18 10:59 06/14/18 09:55 06/14/18 09:55 06/14/18 09:55 Oxygen Delivery Method Room Air Weight: 184 lb 4.903 oz Body Mass Index (BMI) 30.7 Intake and Output for Last 24 Hours 06/12/18 06/13/18 06/14/18 23:59 23:59 23:59 Intake Total 360 / 360 Output Total 1050 / 1050 Balance -690 / -690 General: Awake, Alert, Oriented x 3 HEENT: PERRL, EOMI, Sclera Non Icteric Neck: Supple, Good ROM, No Lymph Node Enlargement Lungs: Clear to auscultation Cardiovascular: Regular Rhythm, Normal S1, Normal S2, No Murmurs, No Rubs, No Gallops Vascular: No Carotid Bruits, Normal Femoral Pulses, Normal Radial Pulses, Normal Dorsalis Pedal Pulse, Normal Posterior Tibial Pulses Abdomen: Bowel Sounds Present, Soft, Non Tender, No HSM, No Organomegaly Extremities: No Cyanosis, No Clubbing, No edema Neurological: No Focal Motor or Sensory Deficit 06/13/18 22:40: WBC 8.0, RBC 4.18 L, Hgb 11.6 L, Hct 37.1, MCV 88.8, MCH 27.8, MCHC 31.3 L, RDW 16.0 H, RDW Differential 51.6 H, Plt Count 119 L, MPV 9.3, Immature Gran % (Auto) 0.000, Neut % (Auto) 88.0 H, Lymph % (Auto) 5.5 L, [place] % (Auto) 6.3, Eos % (Auto) 0.1, Baso % (Auto) 0.1, Absolute Neuts (auto) 7.0, Total Counted Not Reportable 06/13/18 22:40: Sodium 135 L, Potassium 4.4, Chloride 104, Carbon Dioxide 22.0, Anion Gap 9, BUN 48 H, Creatinine 2.96 H, Est GFR (MDRD) Af Amer 20 L, Est GFR (MDRD) Non-Af 16 L, BUN/Creatinine Ratio 16.2, Glucose 156 H, Calcium 8.6 06/13/18 22:40: B-Natriuretic Peptide 1014.7 H 06/14/18 01:15: Urine Color Sol, Urine Clarity Cloudy, Urine pH 5.0, Ur Specific [place] 1.015, Urine Protein 100 H, Urine Glucose (UA) Normal, Urine Ketones 5 H, Urine Occult Blood 250 H, Urine Nitrite Positive H, Urine Bilirubin Negative, Urine Urobilinogen 1 H, Ur Leukocyte Esterase 500 H, Urine RBC 50-100 SEEN, Urine WBC 10-25 SEEN 06/14/18 02:35: PT 28.7 H, INR 2.7 06/14/18 02:35: Magnesium 2.6 06/14/18 02:35: WBC 7.6, RBC 4.06 L, Hgb 11.6 L, Hct 36.8 L, MCV 90.6, MCH 28.6, MCHC 31.5 L, RDW 15.9 H, RDW Differential 51.7 H, Plt Count 132 L, MPV 10.0, Immature Gran % (Auto) 0.100, Neut % (Auto) 85.4 H, Lymph % (Auto) 7.9 L, [place] % (Auto) 6.0, Eos % (Auto) 0.3, Baso % (Auto) 0.3, Absolute Neuts (auto) 6.5, Total Counted Not Reportable 06/14/18 02:35: Sodium 135 L, Potassium 4.3, Chloride 103, Carbon Dioxide 23.0, Anion Gap 9, BUN 48 H, Creatinine 2.73 H, Est GFR (MDRD) Af Amer 21 L, Est GFR (MDRD) Non-Af 18 L, BUN/Creatinine Ratio 17.6, Glucose 114 H, Calcium 8.5 06/14/18 02:35: Troponin I < 0.015 06/14/18 05:45: Troponin I < 0.015 06/14/18 08:46: Troponin I < 0.015 Rhythm: EKG: ECHO: From 11/06/17: Interpretation Summary The estimated ejection fraction is 20-25 %. There is severe global hypokinesis of the left ventricle. Moderately dilated right ventricle. Mild to moderate global right ventricular systolic dysfunction. The left atrium is severely enlarged. Bioprosthetic mitral valve. Moderate bioprosthetic induced mitral valve stenosis. Peak transmitral valve gradient 13 mmHg. Mean transmitral valve gradient 7 mmHg. Moderately severe (3+) eccentric tricuspid valve insufficiency. Right ventricular systolic pressure estimated to be 25 mmHg, but probably underestimated given eccentric nature of TR. Compared to echo report dated 10/26/2016, LV function has remained the same, but pt now has moderate to severe TR. Stress Test: Cardiac Cath: PCI: CT Surgery: Holter monitor: EPS: PPM: CXR: Chest CT Scan: Assessment/Plan 1. Cardiomyopathy: The patient has a history of ischemic cardiomyopathy, and is very sensitive to fluid overload. Her CHF exacerbation was most likely a result of her attempt to flush out her kidney stone. She responded well to Bumex, but does not respond well to Lasix. She appears to be euvolemic at this time. Would avoid aggressive diuresis in order to avoid acute on chronic renal insufficiency. Would recommend continuing her medications including baby aspirin, Bumex 1 mg p.o. daily, and metoprolol. Would not recommend repeat echocardiogram, stress test or catheterization at this time. 2. Bioprosthetic mitral valve: The patient has a bioprosthetic mitral valve, which technically does not mandate Coumadin therapy. She does have a history of paroxysmal atrial fibrillation, but appears to be well controlled on amiodarone and has remained in normal sinus rhythm. The with the patient's kidney stone with vida hematuria, I believe it is reasonable to hold her Coumadin until her kidney stone is passed and/or the patient's need for ureteroscopic evaluation or ureteral stent placement has been established. 2. Atrial fibrillation: The patient appears to be in normal sinus rhythm at this time. Continue amiodarone, metoprolol. We will hold her Coumadin given her hematuria issues. 4. Coronary artery disease: No anginal symptoms at this time. No indication for any additional testing. Continue baby aspirin and beta-elda therapy. Troponins are negative. 5. Hyperlipidemia: We will start low-dose Lipitor 10 mg p.o. nightly. 6. Thank you very much for the opportunity to participate in the cardiac care of your patient. Consultation time took place between 230 PM and 3:15 PM.
[2018-06-14 16:41] LABS: Bedside Glucose 101 mg/dL (70-110)
[2018-06-14] MEDS: Atorvastatin Calcium 10 MG Tablet PO (21:47)
[2018-06-14] MEDS: ALPRAZolam 0.5 MG Tablet PO (21:48)
[2018-06-14] MEDS: 0.9% NaCl Peripheral Flush Adult/Peds IV (21:48)
[2018-06-14] MEDS: Insulin Lispro 100 UNIT/ML INSULN.PEN SC (21:53)
[2018-06-14 22:55] LABS: Bedside Glucose 154 mg/dL (70-110)
[2018-06-15] VITALS (8 sets, daily range): BP systolic 99–106; BP diastolic 57–62; PULSE 100–109; RESP 18; TEMP 36.5–36.9; O2SAT 95–97
[2018-06-15 06:35] LABS: Absolute Lymphocyte Count 0.59 X10^3/ul (0.83-4.51); Absolute Neutrophil Count 5.3 X10^3/uL (2.0-7.7); Basophil# 0.02 X10^3/uL; Basophil% 0.3 % (0-1); Eosinophil# 0.05 X10^3/uL; Eosinophils% 0.8 % (0-5); Hematocrit 36.7 % (37-47); Hemoglobin 11.5 g/dl (12.0-15.0); Lymphocyte # 0.59 X10^3/ul (4.0); Lymphocyte % 9.2 % (19-41); Mean Corp Hgb Conc 31.3 g/gl (32-36); Mean Corpuscular Hgb 28.6 pg (27.0-32.0); Mean Corpuscular Volume 91.3 fL (81-99); Mean Platelet Vol. 10.4 fl (6.2-12.0); Monocyte# 0.51 X10^3/uL; Monocyte% 7.9 % (0-10); Neutrophil # 5.25 X10^3/uL (2.7-7.7); Neutrophil % 81.6 % (47-70); Platelet Count 122 K/mm3 (150-450); RBC Distribution Width CV 16.3 % (11.6-14.6); RBC Distribution Width SD 52.6 fl (35.1-43.9); Red Blood Count 4.02 M/mm3 (4.2-5.4); White Blood Count 6.4 K/mm3 (4.4-11.0)
[2018-06-15 06:39] LABS: Differential Indicated SCAN CRITERIA MET; POSITIVE COUNT NO; POSITIVE DIFFERENTIAL YES; POSITIVE MORPHOLOGY NO
[2018-06-15 06:48] LABS: Albumin, Serum 3.3 g/dL (3.2-5.0); BUN 45 mg/dL (7-18); BUN/Creat Ratio 18.6 RATIO (10-20); Calcium,Total 8.5 mg/dL (8.5-10.1); Chloride 106 mmol/L (98-107); Creatinine, Serum 2.42 mg/dL (0.55-1.02); EST Glomerular Filtration Rate 20 mL/min (>60); Est Glom Filt Rate - Afr Amer 25 mL/min (>60); Estimated Creatinine Clearance 16.13 ml/min; Glucose 106 mg/dL (74-106); Phosphorus 4.2 mg/dL (2.5-4.9); Potassium 4.1 mmol/L (3.5-5.1); Sodium Level 139 mmol/L (136-145)
[2018-06-15 06:55] LABS: Bedside Glucose 101 mg/dL (70-110)
[2018-06-15] MEDS: Metoprolol Tartrate 25 MG Tablet PO (08:26)
[2018-06-15] MEDS: Allopurinol 100 MG Tablet PO (08:26)
[2018-06-15] MEDS: Amiodarone 200 MG Tablet PO (08:27)
[2018-06-15] MEDS: Aspirin E.C. 81 MG Tablet PO (08:27)
[2018-06-15] MEDS: Ferrous Sulfate 325 MG Tablet PO (08:27)
--- NOTE | 2018-06-15 10:15 | PCM.PN.CARD ---
Subjectve: Patient doing very well this morning. No further hematuria. No further back pain or pelvic pain. Patient has been up and walking around without any difficulty. Still no evidence of passing ureteral stone. Telemetry shows normal sinus rhythm/sinus tachycardia. No fevers or chills. Objective: Vital Signs Temp Pulse Resp BP Pulse Ox 97.7 F L 107 H 18 99/62 95 06/15/18 08:10 06/15/18 08:26 06/15/18 08:10 06/15/18 08:26 06/15/18 08:10 Oxygen Delivery Method Room Air Weight: 184 lb 4.903 oz Body Mass Index (BMI) 30.7 Intake and Output for Last 24 Hours 06/13/18 06/14/18 06/15/18 23:59 23:59 23:59 Intake Total 1045.4 / 1045.4 240 / 240 Output Total 1475 / 1475 250 / 250 Balance -429.6 / -429.6 -10 / -10 General: Awake, Alert, Oriented x 3 HEENT: PERRL, EOMI, Sclera Non Icteric Neck: Supple, Good ROM, No Lymph Node Enlargement Lungs: Clear to auscultation Cardiovascular: Regular Rhythm, Normal S1, Normal S2, No Murmurs, No Rubs, No Gallops Vascular: No Carotid Bruits, Normal Femoral Pulses, Normal Radial Pulses, Normal Dorsalis Pedal Pulse, Normal Posterior Tibial Pulses Abdomen: Bowel Sounds Present, Soft, Non Tender, No HSM, No Organomegaly Extremities: No Cyanosis, No Clubbing, No edema Neurological: No Focal Motor or Sensory Deficit 06/15/18 05:22: Sodium 139, Potassium 4.1, Chloride 106, Carbon Dioxide 25.0, BUN 45 H, Creatinine 2.42 H, Est GFR (MDRD) Af Amer 25 L, Est GFR (MDRD) Non-Af 20 L, BUN/Creatinine Ratio 18.6, Glucose 106, Calcium 8.5, Phosphorus 4.2 06/15/18 05:22: WBC 6.4, RBC 4.02 L, Hgb 11.5 L, Hct 36.7 L, MCV 91.3, MCH 28.6, MCHC 31.3 L, RDW 16.3 H, RDW Differential 52.6 H, Plt Count 122 L, MPV 10.4, Immature Gran % (Auto) 0.200, Neut % (Auto) 81.6 H, Lymph % (Auto) 9.2 L, [place] % (Auto) 7.9, Eos % (Auto) 0.8, Baso % (Auto) 0.3, Absolute Neuts (auto) 5.3, Total Counted Not Reportable Rhythm: EKG: ECHO: Stress Test: Cardiac Cath: PCI: CT Surgery: Holter monitor: EPS: PPM: CXR: Chest CT Scan: Medical Necessity - Tobacco Use Smoking Status: Never smoker Tobacco Use: Non-smoker Assessment/Plan 1. Cardiomyopathy: The patient has a history of ischemic cardiomyopathy, and is very sensitive to fluid overload. Her CHF exacerbation was most likely a result of her attempt to flush out her kidney stone. She responded well to Bumex, but does not respond well to Lasix. She appears to be euvolemic at this time. Would avoid aggressive diuresis in order to avoid acute on chronic renal insufficiency. Appreciate renal consult, and we will hold on Bumex therapy today given her acute on chronic renal failure. Creatinine 2.7 today. Would recommend continuing her medications including baby aspirin, Bumex 1 mg p.o. daily once her renal function has recovered, and metoprolol. Would not recommend repeat echocardiogram, stress test or catheterization at this time. 2. Bioprosthetic mitral valve: The patient has a bioprosthetic mitral valve, which technically does not mandate Coumadin therapy. She does have a history of paroxysmal atrial fibrillation, but appears to be well controlled on amiodarone and has remained in normal sinus rhythm. Given the patient's kidney stone with vida hematuria, I believe it is reasonable to hold her Coumadin until her kidney stone is passed and/or the patient's need for ureteroscopic evaluation or ureteral stent placement has been established. My preference would be for stone removal in order to remove a nidus of possible infection which may contaminate her bioprosthetic mitral valve. 2. Atrial fibrillation: The patient appears to be in normal sinus rhythm at this time. Continue amiodarone, metoprolol. We will hold her Coumadin given her hematuria issues. 4. Coronary artery disease: No anginal symptoms at this time. No indication for any additional testing. Continue baby aspirin and beta-elda therapy. Troponins are negative. 5. Hyperlipidemia: We will start low-dose Lipitor 10 mg p.o. nightly. 6. Thank you very much for the opportunity to participate in the cardiac care of your patient. Appreciate renal and urology consults. Code Visit Inpatient E&M: 78357 Subs Hosp L2
[2018-06-15 11:01] LABS: Bedside Glucose 146 mg/dL (70-110)
--- NOTE | 2018-06-15 13:21 | NURSING ---
student nurse charting reviewed
[2018-06-15 15:21] LABS: Bedside Glucose 116 mg/dL (70-110)
--- NOTE | 2018-06-15 15:45 | DCINST_ITS ---
- Discharge Diagnoses Current Active Problems: Current Active and Chronic Problems (Last Reviewed 06/14/18 @ 07:31 by Donta Hicks MD) Paroxysmal atrial fibrillation (Acute) H/O right nephrectomy (Acute) LANIE (acute kidney injury) (Acute) Complicated urinary tract infection (Acute) Calculus of proximal left ureter (Acute) Hydroureter on left (Acute) Hydronephrosis, left (Acute) Left ureteral calculus (Acute) Congestive heart failure (Acute) You will use the following diet at home:: Renal (restricted protein/sodium) Your food should be the consistency of: Regular Your liquids should be the consistency of: Regular/Thin Discharge Activity: Return to Normal Activity Weight Bearing Status: Weight bearing as tolerated Call your doctor if you observe: Inability to urinate Additional Instructions: Hold BUmex until Sunday06/17/18, per nephrology. To follow up with PCP and nephrology to determine when to start Allergies/Adverse Reactions: Allergies erythromycin base Adverse Reaction (Verified 06/13/18 21:45) Vomiting meperidine [From Demerol] Adverse Reaction (Verified 06/13/18 21:45) Vomiting Medications to take at Discharge Niacin 250 mg PO DAILY 12/23/16 alprazolam 0.5 mg tablet 0.5 mg PO QHS tab 03/19/17 metoprolol tartrate 25 mg tablet 25 mg PO BID 03/19/17 amiodarone 200 mg tablet 200 mg PO DAILY 90 Days #90 tab 04/19/17 Aspirin E.C. [Ecotrin] 81 mg PO DAILY 11/05/17 C,E,Zinc,Copper 11/Ygiub0s/Lut [Ocuvite Adult 50 Plus Softgel] 1 tab PO DAILY 11/05/17 Calcium Carbonate/Vitamin D3 [Calcium 600-Vit D3 200 Tablet] 1 tab PO DAILY 11/05/17 Carboxymethylcellulose Sodium [Refresh Tears] 1 drp EACH EYE TID 11/05/17 Ferrous Sulfate [Iron] 325 mg PO DAILY 11/05/17 Magnesium Oxide 400 mg PO DAILY 11/05/17 warfarin 3 mg tablet 3 mg PO DAILY #90 tab 05/13/18 Allopurinol 100 mg PO DAILY 06/14/18 Cephalexin [Keflex] 500 mg PO BID 06/14/18 Tamsulosin HCl [Flomax] 0.4 mg PO DAILY #30 capsule 06/15/18 The following prescriptions were given: Tamsulosin HCl [Flomax] 0.4 mg PO DAILY #30 capsule Primary Care Physician: Gilberto Rios MD [Primary Care Provider] - Please follow up with your Primary Care Physician in: one week Test Results: Test results from this visit will be discussed in further detail at your follow- up appointment, if applicable. Please Follow Up With: Stacy Degroot DO When: one week Please Follow Up With: Donta Hicks MD When: one week Please Follow Up With: Salvador Tran MD When: 1-2 weeks Proposed Discharge Date: 06/15/18
--- NOTE | 2018-06-15 16:50 | PCM.DC.SUM ---
Discharge Date and Diagnosis - Problem List Patient Problems: Active and Suspected Problems (Last Reviewed 06/14/18 @ 07:31 by Donta Hicks MD) Paroxysmal atrial fibrillation (Acute) H/O right nephrectomy (Acute) LANIE (acute kidney injury) (Acute) Complicated urinary tract infection (Acute) Calculus of proximal left ureter (Acute) Hydroureter on left (Acute) Hydronephrosis, left (Acute) Left ureteral calculus (Acute) Congestive heart failure (Acute) Date of Admission: 06/14/18 Date of Discharge: 06/15/18 - Primary Discharge Diagnosis Active and Suspected Problems (Last Reviewed 06/14/18 @ 07:31 by Donta Hicks MD) Paroxysmal atrial fibrillation (Acute) H/O right nephrectomy (Acute) LANIE (acute kidney injury) (Acute) Complicated urinary tract infection (Acute) Calculus of proximal left ureter (Acute) Hydroureter on left (Acute) Hydronephrosis, left (Acute) Left ureteral calculus (Acute) Congestive heart failure (Acute) - Secondary Discharge Diagnosis Chronic Problems (Last Reviewed 06/14/18 @ 07:31 by Donta Hicks MD) Persistent atrial fibrillation (Chronic) History of mitral valve replacement with bioprosthetic valve (Chronic ~01/18/17) 27mm [facility] Epic bioprosthesis 01/18/17 Essential hypertension (Chronic) Ventricular tachyarrhythmia (Chronic) H/O coronary artery bypass surgery (Chronic ~01/18/17) S/P bypass [place] [address] 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 marginal branch Presence of implantable cardioverter-defibrillator (ICD) (Chronic ~05/10/09) [employer] 05/10/2009 Secondary pulmonary arterial hypertension (Chronic) Ischemic cardiomyopathy (Chronic) Atherosclerosis of coronary artery of [place] heart without angina pectoris (Chronic) S/P bypass [place] [address] 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 Proximal left ureteral stone with mild hydroureter and hydronephrosis with perinephric fatty stranding. Additional renal nephrolithiasis. Small left pleural effusion. Chronic lung changes. However pulmonary vascular congestion. Small amount of fluid within the abdomen and pelvis. There is some mild thickening and mild stranding adjacent to the distal descending colon. Mild diverticulitis cannot be totally excluded. Right nephrectomy. Small amount of fluid within the right renal fossa. Small duodenal diverticulum. Status post hysterectomy. Slight prominence and heterogeneity to the vaginal cuff. Correlate with prior studies for stability versus follow-up nonemergent ultrasound. There is a small low-attenuation structure seen within the left kidney likely representing a cyst. Evaluation is somewhat limited by lack of IV contrast. Correlate with prior studies for stability. Ultrasound may be performed to further evaluate on a nonemergent basis Other findings as discussed above. Electronically Signed: Jay Dong, at 0:41 EDT Tel , Service support , ADDENDUM: 06/15/18 0447 Chest X-Ray 06/13/18 22:15 IMPRESSION: Pulmonary infiltrates secondary to pulmonary edema and/or pneumonia. Small pleural effusions Cardiomegaly Cardiac pacemaker Electronically Signed: [place] at 23:17 EDT Tel , Service support , Renal Ultrasound 06/14/18 14:18 IMPRESSION: Limited study. Mild left hydronephrosis. There appears to be a small echogenic structure within the proximal ureter likely a stone causing the hydronephrosis. Multiple left nephrolithiasis. Right nephrectomy. Limited evaluation of the bladder due to decompression by Medrano catheter. However there is some mild bladder wall thickening which could be related to underdistention. However recommend urinalysis to further evaluate for any infectious process. Electronically Signed: Jay Dong, at 4:39 EDT Tel , Service support , nephrology- Dr Degroot urology- Dr Hicks Operations: None Procedures: None Summary of Care Provided: The patient is a 82 year old F with an extensive past medical history as listed was admitted with a complaint of decreased urine output, and in the left side of flank discomfort. She had been started on oral Keflex for UTI but however symptoms worsen with no market increase in her urinary output and so she came into the ED. In the ED, she was found to have elevated BNP of 1014.7 with creatinine of 2.96 and chest x-ray with pulmonary infiltrate suspicious for pulmonary edema with small pleural effusions. CT abdomen and pelvis with no contrast showed proximal left ureteral stone with mild hydroureter and hydronephrosis with perinephric fat stranding as well as additional nephrolithiasis. She also has right nephrectomy. She was admitted and managed for left pyelonephritis and nephrolithiasis as well as acute decompensated systolic heart failure. She was started on IV ceftriaxone. She could not be diuresed on account of markedly elevated BNP. Cardiology was consulted and agreed with holding off on diuresis as patient was stable. She was also managed for AK I on CKD stage III. Urology was consulted but deferred placement of stent during this admission as they did not think that the obstruction was significant to merit stenting. Patient remained stable, creatinine trended down to 2.42 on day of discharge. She remained stable and was discharged home on 06/15/2018 after Medrano catheter was discontinued and prescription was able to void on her own. She was discharged with a prescription for p.o. cefdinir for 7 days to treat pyelonephritis as well as a prescription for p.o. Flomax. She is to follow-up with her primary care doctor, urologist and onboarding specialist within 1 week. Of note, per discussion with nephrology, patient is to hold Bumex until 06/17/2018, to which she can resume taking it. She is to follow-up with onboarding specialist and cardiology. She is also to follow-up with urology for decision to be made on whether she would need stent placement in the kidney on outpatient basis. Patient seen and examined prior to discharge. She had no complaints and felt well. Review of systems otherwise negative. Labs and vitals reviewed. Home medication reviewed on consult. o/e: Vital Signs Height 5 ft 5 in Weight: 184 lb 4.903 oz Weight in Pounds 184.3 lbs Pulse Ox 97 Temperature 97.7 F Pulse Rate 104 Respiratory Rate 18 Blood Pressure 101/57 Blood Pressure Position Semi-Fowlers [] General: Alert, Oriented x3, Cooperative, No apparent distress HEENT: Atraumatic, PERRLA, EOMI, Normocephalic Oral: Moist Mucosa Neck: Supple, No JVD, Negative Carotid Bruits Lungs: Clear to auscultation, Normal air movement Cardiovascular: Regular rate, Regular Rhythm, Normal S1, Normal S2, No murmurs Abdomen: Bowel Sounds Present, Soft, Non Tender, Non-Distended, No Hepato-splenomegaly Extremities: No clubbing, No cyanosis, No edema, Capillary Refill Less than 3 Seconds Skin: No rashes, No breakdown Musculoskeletal: No Tenderness to Palpation of Joints or Extremities Lymphatic: No Cervical, Supraclavicular, or Inguinal Adenopathy Neurological: Cranial nerves II-XII grossly intact, Neuro grossly intact, Motor Exam 5/5 strength throughout Psych/Mental Status: Normal Affect, Appropriate, Alert and oriented to time, place, person, mood and affect Patient was also discharged with a prescription for p.o. Flomax. Rest of management as above. Patient Problems: Active and Suspected Problems (Last Reviewed 06/14/18 @ 07:31 by Donta Hicks MD) Paroxysmal atrial fibrillation (Acute) H/O right nephrectomy (Acute) LANIE (acute kidney injury) (Acute) Complicated urinary tract infection (Acute) Calculus of proximal left ureter (Acute) Hydroureter on left (Acute) Hydronephrosis, left (Acute) Left ureteral calculus (Acute) Congestive heart failure (Acute) - Physical Exam Vital Signs Temp Pulse Resp BP Pulse Ox 97.7 F L 104 H 18 101/57 L 97 06/15/18 13:17 06/15/18 14:49 06/15/18 13:17 06/15/18 13:17 06/15/18 13:17 Oxygen Delivery Method Room Air Weight: 184 lb 4.903 oz Body Mass Index (BMI) 30.7 Intake and Output for Last 24 Hours 06/13/18 06/14/18 06/15/18 23:59 23:59 23:59 Intake Total 1045.4 / 1045.4 620 / 620 Output Total 1475 / 1475 400 / 400 Balance -429.6 / -429.6 220 / 220 Microbiology Past 72 Hours 06/14/18 08:40 Urine Culture - Preliminary Urine Catheter - Medrano Culture exhibits no growth. Laboratory Tests Past 24 Hrs 06/15/18 06/15/18 05:22 05:22 WBC 6.4 RBC 4.02 L Hgb 11.5 L Hct 36.7 L MCV 91.3 MCH 28.6 MCHC 31.3 L RDW 16.3 H RDW Differential 52.6 H Plt Count 122 L MPV 10.4 Immature Gran % (Auto) 0.200 Neut % (Auto) 81.6 H Lymph % (Auto) 9.2 L [place] % (Auto) 7.9 Eos % (Auto) 0.8 Baso % (Auto) 0.3 Absolute Neuts (auto) 5.3 Absolute Lymphs (auto) 0.59 L Total Counted Not Reportable Sodium 139 Potassium 4.1 Chloride 106 Carbon Dioxide 25.0 BUN 45 H Creatinine 2.42 H Estim Creat Clear Calc 16.13 Est GFR (MDRD) Af Amer 25 L Est GFR (MDRD) Non-Af 20 L BUN/Creatinine Ratio 18.6 Glucose 106 Calcium 8.5 Phosphorus 4.2 Albumin 3.3 POC Glucose 06/15/18 06/15/18 06/15/18 15:06 10:48 06:49 POC Glucose 116 H 146 H 101 06/14/18 21:44 POC Glucose 154 H Discharge Diet: Renal Diet Discharge Activity: Return to Normal Activity Weight Bearing Status: Weight bearing as tolerated Call your doctor if you observe: Inability to urinate Home Medications: Medications to take at Discharge Niacin 250 mg PO DAILY 12/23/16 alprazolam 0.5 mg tablet 0.5 mg PO QHS tab 03/19/17 metoprolol tartrate 25 mg tablet 25 mg PO BID 03/19/17 amiodarone 200 mg tablet 200 mg PO DAILY 90 Days #90 tab 04/19/17 Aspirin E.C. [Ecotrin] 81 mg PO DAILY 11/05/17 C,E,Zinc,Copper 11/Luveb2z/Lut [Ocuvite Adult 50 Plus Softgel] 1 tab PO DAILY 11/05/17 Calcium Carbonate/Vitamin D3 [Calcium 600-Vit D3 200 Tablet] 1 tab PO DAILY 11/05/17 Carboxymethylcellulose Sodium [Refresh Tears] 1 drp EACH EYE TID 11/05/17 Ferrous Sulfate [Iron] 325 mg PO DAILY 11/05/17 Magnesium Oxide 400 mg PO DAILY 11/05/17 warfarin 3 mg tablet 3 mg PO DAILY #90 tab 05/13/18 Allopurinol 100 mg PO DAILY 06/14/18 Cephalexin [Keflex] 500 mg PO BID 06/14/18 Tamsulosin HCl [Flomax] 0.4 mg PO DAILY #30 capsule 06/15/18 Following Prescrptions Were Given to Patient: Tamsulosin HCl [Flomax] 0.4 mg PO DAILY #30 capsule Primary Care Physician: Gilberto Rios MD [Primary Care Provider] - Please follow up with your Primary Care Physician in: one week Please Follow Up With: Stacy Degroot DO When: one week Please Follow Up With: Donta Hicks MD When: one week Please Follow Up With: Salvador Tran MD When: 1-2 weeks Disposition: Home Minutes spent on discharge:: 45 Patient Condition:: Stable Medical Necessity - Tobacco Use Smoking Status: Never smoker Tobacco Use: Non-smoker Meaningful Use Info Meaningful Use Diagnoses (Choose all that apply): None applicable Code Visit Inpatient E&M: 18687 Disch Hosp
--- NOTE | 2018-06-15 17:04 | DS.PCM_ITS ---
Discharge Date and Diagnosis - Problem List Patient Problems: Active and Suspected Problems (Last Reviewed 06/14/18 @ 07:31 by Donta Hicks MD) Paroxysmal atrial fibrillation (Acute) H/O right nephrectomy (Acute) LANIE (acute kidney injury) (Acute) Complicated urinary tract infection (Acute) Calculus of proximal left ureter (Acute) Hydroureter on left (Acute) Hydronephrosis, left (Acute) Left ureteral calculus (Acute) Congestive heart failure (Acute) Date of Admission: 06/14/18 Date of Discharge: 06/15/18 - Primary Discharge Diagnosis Active and Suspected Problems (Last Reviewed 06/14/18 @ 07:31 by Donta Hicks MD) Paroxysmal atrial fibrillation (Acute) H/O right nephrectomy (Acute) LANIE (acute kidney injury) (Acute) Complicated urinary tract infection (Acute) Calculus of proximal left ureter (Acute) Hydroureter on left (Acute) Hydronephrosis, left (Acute) Left ureteral calculus (Acute) Congestive heart failure (Acute) - Secondary Discharge Diagnosis Chronic Problems (Last Reviewed 06/14/18 @ 07:31 by Donta Hicks MD) Persistent atrial fibrillation (Chronic) History of mitral valve replacement with bioprosthetic valve (Chronic ~01/18/17) 27mm [facility] Epic bioprosthesis 01/18/17 Essential hypertension (Chronic) Ventricular tachyarrhythmia (Chronic) H/O coronary artery bypass surgery (Chronic ~01/18/17) S/P bypass [place] [address] 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 marginal branch Presence of implantable cardioverter-defibrillator (ICD) (Chronic ~05/10/09) [employer] 05/10/2009 Secondary pulmonary arterial hypertension (Chronic) Ischemic cardiomyopathy (Chronic) Atherosclerosis of coronary artery of [place] heart without angina pectoris (Chronic) S/P bypass [place] [address] 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 Proximal left ureteral stone with mild hydroureter and hydronephrosis with perinephric fatty stranding. Additional renal nephrolithiasis. Small left pleural effusion. Chronic lung changes. However pulmonary vascular congestion. Small amount of fluid within the abdomen and pelvis. There is some mild thickening and mild stranding adjacent to the distal descending colon. Mild diverticulitis cannot be totally excluded. Right nephrectomy. Small amount of fluid within the right renal fossa. Small duodenal diverticulum. Status post hysterectomy. Slight prominence and heterogeneity to the vaginal cuff. Correlate with prior studies for stability versus follow-up nonemergent ultrasound. There is a small low-attenuation structure seen within the left kidney likely representing a cyst. Evaluation is somewhat limited by lack of IV contrast. Correlate with prior studies for stability. Ultrasound may be performed to further evaluate on a nonemergent basis Other findings as discussed above. Electronically Signed: Jay Dong, at 0:41 EDT Tel , Service support , ADDENDUM: 06/15/18 0447 Chest X-Ray 06/13/18 22:15 IMPRESSION: Pulmonary infiltrates secondary to pulmonary edema and/or pneumonia. Small pleural effusions Cardiomegaly Cardiac pacemaker Electronically Signed: [place] at 23:17 EDT Tel , Service support , Renal Ultrasound 06/14/18 14:18 IMPRESSION: Limited study. Mild left hydronephrosis. There appears to be a small echogenic structure within the proximal ureter likely a stone causing the hydronephrosis. Multiple left nephrolithiasis. Right nephrectomy. Limited evaluation of the bladder due to decompression by Medrano catheter. However there is some mild bladder wall thickening which could be related to underdistention. However recommend urinalysis to further evaluate for any infectious process. Electronically Signed: Jay Dong, at 4:39 EDT Tel , Service support , nephrology- Dr Degroot urology- Dr Hicks Operations: None Procedures: None Summary of Care Provided: The patient is a 82 year old F with an extensive past medical history as listed was admitted with a complaint of decreased urine output, and in the left side of flank discomfort. She had been started on oral Keflex for UTI but however symptoms worsen with no market increase in her urinary output and so she came into the ED. In the ED, she was found to have elevated BNP of 1014.7 with creatinine of 2.96 and chest x-ray with pulmonary infiltrate suspicious for pulmonary edema with small pleural effusions. CT abdomen and pelvis with no contrast showed proximal left ureteral stone with mild hydroureter and hydronephrosis with perinephric fat stranding as well as additional nephrolithiasis. She also has right nephrectomy. She was admitted and managed for left pyelonephritis and nephrolithiasis as well as acute decompensated systolic heart failure. She was started on IV ceftriaxone. She could not be diuresed on account of markedly elevated BNP. Cardiology was consulted and agreed with holding off on diuresis as patient was stable. She was also managed for AK I on CKD stage III. Urology was consulted but deferred placement of stent during this admission as they did not think that the obstruction was significant to merit stenting. Patient remained stable, creatinine trended down to 2.42 on day of discharge. She remained stable and was discharged home on 06/15/2018 after Medrano catheter was discontinued and prescription was able to void on her own. She was discharged with a prescription for p.o. cefdinir for 7 days to treat pyelonephritis as well as a prescription for p.o. Flomax. She is to follow-up with her primary care doctor, urologist and outside food server within 1 week. Of note, per discussion with nephrology, patient is to hold Bumex until 06/17/2018, to which she can resume taking it. She is to follow-up with outside food server and cardiology. She is also to follow-up with urology for decision to be made on whether she would need stent placement in the kidney on outpatient basis. Patient seen and examined prior to discharge. She had no complaints and felt well. Review of systems otherwise negative. Labs and vitals reviewed. Home medication reviewed on consult. o/e: Vital Signs Height 5 ft 5 in Weight: 184 lb 4.903 oz Weight in Pounds 184.3 lbs Pulse Ox 97 Temperature 97.7 F Pulse Rate 104 Respiratory Rate 18 Blood Pressure 101/57 Blood Pressure Position Semi-Fowlers [] General: Alert, Oriented x3, Cooperative, No apparent distress HEENT: Atraumatic, PERRLA, EOMI, Normocephalic Oral: Moist Mucosa Neck: Supple, No JVD, Negative Carotid Bruits Lungs: Clear to auscultation, Normal air movement Cardiovascular: Regular rate, Regular Rhythm, Normal S1, Normal S2, No murmurs Abdomen: Bowel Sounds Present, Soft, Non Tender, Non-Distended, No Hepato- splenomegaly Extremities: No clubbing, No cyanosis, No edema, Capillary Refill Less than 3 Seconds Skin: No rashes, No breakdown Musculoskeletal: No Tenderness to Palpation of Joints or Extremities Lymphatic: No Cervical, Supraclavicular, or Inguinal Adenopathy Neurological: Cranial nerves II-XII grossly intact, Neuro grossly intact, Motor Exam 5/5 strength throughout Psych/Mental Status: Normal Affect, Appropriate, Alert and oriented to time, place, person, mood and affect Patient was also discharged with a prescription for p.o. Flomax. Rest of management as above. Patient Problems: Active and Suspected Problems (Last Reviewed 06/14/18 @ 07:31 by Donta Hicks MD) Paroxysmal atrial fibrillation (Acute) H/O right nephrectomy (Acute) LANIE (acute kidney injury) (Acute) Complicated urinary tract infection (Acute) Calculus of proximal left ureter (Acute) Hydroureter on left (Acute) Hydronephrosis, left (Acute) Left ureteral calculus (Acute) Congestive heart failure (Acute) - Physical Exam Vital Signs Temp Pulse Resp BP Pulse Ox 97.7 F L 104 H 18 101/57 L 97 06/15/18 13:17 06/15/18 14:49 06/15/18 13:17 06/15/18 13:17 06/15/18 13:17 Oxygen Delivery Method Room Air Weight: 184 lb 4.903 oz Body Mass Index (BMI) 30.7 Intake and Output for Last 24 Hours 06/13/18 06/14/18 06/15/18 23:59 23:59 23:59 Intake Total 1045.4 / 1045.4 620 / 620 Output Total 1475 / 1475 400 / 400 Balance -429.6 / -429.6 220 / 220 Microbiology Past 72 Hours 06/14/18 08:40 Urine Culture - Preliminary Urine Catheter - Medrano Culture exhibits no growth. Laboratory Tests Past 24 Hrs 06/15/18 06/15/18 05:22 05:22 WBC 6.4 RBC 4.02 L Hgb 11.5 L Hct 36.7 L MCV 91.3 MCH 28.6 MCHC 31.3 L RDW 16.3 H RDW Differential 52.6 H Plt Count 122 L MPV 10.4 Immature Gran % (Auto) 0.200 Neut % (Auto) 81.6 H Lymph % (Auto) 9.2 L [place] % (Auto) 7.9 Eos % (Auto) 0.8 Baso % (Auto) 0.3 Absolute Neuts (auto) 5.3 Absolute Lymphs (auto) 0.59 L Total Counted Not Reportable Sodium 139 Potassium 4.1 Chloride 106 Carbon Dioxide 25.0 BUN 45 H Creatinine 2.42 H Estim Creat Clear Calc 16.13 Est GFR (MDRD) Af Amer 25 L Est GFR (MDRD) Non-Af 20 L BUN/Creatinine Ratio 18.6 Glucose 106 Calcium 8.5 Phosphorus 4.2 Albumin 3.3 POC Glucose 06/15/18 06/15/18 06/15/18 15:06 10:48 06:49 POC Glucose 116 H 146 H 101 06/14/18 21:44 POC Glucose 154 H Discharge Diet: Renal Diet Discharge Activity: Return to Normal Activity Weight Bearing Status: Weight bearing as tolerated Call your doctor if you observe: Inability to urinate Home Medications: Medications to take at Discharge Niacin 250 mg PO DAILY 12/23/16 alprazolam 0.5 mg tablet 0.5 mg PO QHS tab 03/19/17 metoprolol tartrate 25 mg tablet 25 mg PO BID 03/19/17 amiodarone 200 mg tablet 200 mg PO DAILY 90 Days #90 tab 04/19/17 Aspirin E.C. [Ecotrin] 81 mg PO DAILY 11/05/17 C,E,Zinc,Copper 11/Vkngs4t/Lut [Ocuvite Adult 50 Plus Softgel] 1 tab PO DAILY 11/05/17 Calcium Carbonate/Vitamin D3 [Calcium 600-Vit D3 200 Tablet] 1 tab PO DAILY 11/05/17 Carboxymethylcellulose Sodium [Refresh Tears] 1 drp EACH EYE TID 11/05/17 Ferrous Sulfate [Iron] 325 mg PO DAILY 11/05/17 Magnesium Oxide 400 mg PO DAILY 11/05/17 warfarin 3 mg tablet 3 mg PO DAILY #90 tab 05/13/18 Allopurinol 100 mg PO DAILY 06/14/18 Cephalexin [Keflex] 500 mg PO BID 06/14/18 Tamsulosin HCl [Flomax] 0.4 mg PO DAILY #30 capsule 06/15/18 Following Prescrptions Were Given to Patient: Tamsulosin HCl [Flomax] 0.4 mg PO DAILY #30 capsule Primary Care Physician: Gilberto Rios MD [Primary Care Provider] - Please follow up with your Primary Care Physician in: one week Please Follow Up With: Stacy Degroot DO When: one week Please Follow Up With: Donta Hicks MD When: one week Please Follow Up With: Salvador Tran MD When: 1-2 weeks Disposition: Home Minutes spent on discharge:: 45 Patient Condition:: Stable Medical Necessity - Tobacco Use Smoking Status: Never smoker Tobacco Use: Non-smoker Meaningful Use Info Meaningful Use Diagnoses (Choose all that apply): None applicable Code Visit Inpatient E&M: 03480 Disch Hosp
--- NOTE | 2018-06-18 15:38 | CASEMGMT ---
ZACH KONG Discharge Follow-up Phone Call: MICHELLETiff: Teresa Strata: 3 Call Date: 06/18/18 Discharge Date: 06/14/18 Time of Call: [id number] Duration: 6 minutes ? Admitting Diagnosis: Acute nephrolithiasis w/proximal left ureteral stone with hydroureter and hydronephrosis and UTI; LANIE; acute systolic CHF. This ZACH KONG contacted pt via phone regarding discharge follow-up. Pt states she has been doing well since discharge. States she had her follow-up appointment with Dr. Hicks and he has released her. Pt states she has been voiding without difficulty and noted the passage of stones, has resumed her Bumex as instructed, and is continuing to take the antibiotic. Pt states this past weekend she developed chest heaviness and difficulty breathing with subsequent anxiety/panic feeling but states she was able to calm herself down. Pt states she reviewed her antibiotic instructions, adjusted her diet to eliminate dairy and vitamins in 4hour proximity to the antibiotic and these symptoms have not recurred. Pt states she has a follow-up appointment with Dr. Degorot scheduled for July 03. She has left messages with Dr. Rios and Dr. Tran's offices and is awaiting a return call from them to schedule follow-up appointments. Pt denied any further questions or concerns and feels she is improving. Manohar Bryan RN
== END 2018-06-15 17:56 | disposition home or self-care (01) | DRG 689 ==
LOC: ED 06-14 01:15 → PCU 06-14 01:39
PROVIDERS: Internal Medicine Nephrology; Admitting Provider Family Medicine; Emergency Provider Emergency Medicine; Family Provider Family Medicine; PCP Family Medicine; Visit Provider Student in an Organized Health Care Education/Training Program
DX: N13.6 Pyonephrosis (principal); I50.23 Acute on chronic systolic (congestive) heart failure; I13.0 Hypertensive heart and chronic kidney disease with heart failure and stage 1 through stage 4 chronic kidney disease, or unspecified chronic kidney disease; N17.9 Acute kidney failure, unspecified; E11.22 Type 2 diabetes mellitus with diabetic chronic kidney disease; N18.3 Chronic kidney disease, stage 3 (moderate); D50.9 Iron deficiency anemia, unspecified; Z66 Do not resuscitate; N20.0 Calculus of kidney; I25.10 Atherosclerotic heart disease of native coronary artery without angina pectoris; I25.5 Ischemic cardiomyopathy; I48.0 Paroxysmal atrial fibrillation; E78.5 Hyperlipidemia, unspecified; I27.21 Secondary pulmonary arterial hypertension; Z95.1 Presence of aortocoronary bypass graft; Z87.442 Personal history of urinary calculi; Z85.3 Personal history of malignant neoplasm of breast; Z92.21 Personal history of antineoplastic chemotherapy; Z79.01 Long term (current) use of 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; Z95.810 Presence of automatic (implantable) cardiac defibrillator; Z85.528 Personal history of other malignant neoplasm of kidney; Z90.5 Acquired absence of kidney; Z95.3 Presence of xenogenic heart valve
CPT/HCPCS: 36415; 71046; 74176; 76770; 80048; 80069; 81001; 82962; 83735; 83880; 84484; 85025; 85610; 87086; 93005; 99283; A4216

== ENCOUNTER → 2018-06-24 15:20 | Outpatient (CLI) | payer MEDICARE, OTHER, SELFPAY ==
[2018-06-14 08:31] VITALS: BMI 30.7
[2018-06-24 18:27] LABS: Anion Gap 6 (5-15); BUN 40 mg/dL (7-18); BUN/Creat Ratio 17.2 RATIO (10-20); Calcium,Total 8.4 mg/dL (8.5-10.1); Chloride 107 mmol/L (98-107); Creatinine, Serum 2.33 mg/dL (0.55-1.02); EST Glomerular Filtration Rate 21 mL/min (>60); Est Glom Filt Rate - Afr Amer 26 mL/min (>60); Glucose 118 mg/dL (74-106); Potassium 3.9 mmol/L (3.5-5.1); Sodium Level 141 mmol/L (136-145)
== END ==
PROVIDERS: Family Provider Family Medicine; PCP Family Medicine; Referring Provider Family Medicine; Visit Provider Family Medicine
DX: N28.9 Disorder of kidney and ureter, unspecified (principal)
CPT/HCPCS: 36415; 80048

== ENCOUNTER 2018-07-22 15:12 | Outpatient (RCR) | payer MEDICARE, OTHER, SELFPAY ==
[2018-05-13 13:45] VITALS: BMI 30.2
[2018-06-26 10:43] VITALS: BMI 31.5
[2018-07-08 11:51] LABS: Prothrombin Time (Protime)PT. 35.2 SECONDS (11.7-14.9)
[2018-07-08 11:56] LABS: International Normalized Ratio 3.5
[2018-07-15 15:05] LABS: International Normalized Ratio 3.2; Prothrombin Time (Protime)PT. 32.8 SECONDS (11.7-14.9)
[2018-07-22 15:49] LABS: International Normalized Ratio 2.5; Prothrombin Time (Protime)PT. 26.9 SECONDS (11.7-14.9)
== END 2018-07-30 16:00 | disposition home or self-care (01) ==
LOC: LAB 15:12
PROVIDERS: Family Provider Family Medicine; PCP Family Medicine; Referring Provider Internal Medicine Cardiovascular Disease; Visit Provider Internal Medicine Cardiovascular Disease
DX: I48.91 Unspecified atrial fibrillation (principal); Z79.01 Long term (current) use of 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
CPT/HCPCS: 36415; 85610

== ENCOUNTER → 2018-08-02 13:35 | Outpatient (CLI) | payer MEDICARE, OTHER, SELFPAY ==
[2018-06-26 10:43] VITALS: BMI 31.5
[2018-08-02 14:32] LABS: Hematocrit 39.8 % (37-47); Hemoglobin 12.2 g/dl (12.0-15.0); Mean Corp Hgb Conc 30.7 g/gl (32-36); Mean Corpuscular Hgb 27.5 pg (27.0-32.0); Mean Corpuscular Volume 89.6 fL (81-99); Platelet Count 109 K/mm3 (150-450); RBC Distribution Width CV 15.6 % (11.6-14.6); RBC Distribution Width SD 50.7 fl (35.1-43.9); Red Blood Count 4.44 M/mm3 (4.2-5.4); White Blood Count 4.8 K/mm3 (4.4-11.0)
[2018-08-02 14:34] LABS: Scan Indicated on CBC? Y/N NO
[2018-08-02 15:04] LABS: Albumin, Serum 3.8 g/dL (3.2-5.0); BUN 33 mg/dL (7-18); BUN/Creat Ratio 15.7 RATIO (10-20); Calcium,Total 8.7 mg/dL (8.5-10.1); Chloride 105 mmol/L (98-107); EST Glomerular Filtration Rate 24 mL/min (>60); Est Glom Filt Rate - Afr Amer 29 mL/min (>60); Ferritin 74 ng/mL (8-252); Glucose 102 mg/dL (74-106); Iron 38 ug/dL (50-170); Iron Binding Capacity,Total 308 ug/dL (250-450); Phosphorus 3.4 mg/dL (2.5-4.9); Potassium 4.3 mmol/L (3.5-5.1); Sodium Level 139 mmol/L (136-145)
[2018-08-02 15:11] LABS: PTHIN 174.7 pg/mL (18.4-80.1)
== END ==
PROVIDERS: Family Provider Family Medicine; PCP Family Medicine; Referring Provider Internal Medicine Nephrology; Visit Provider Internal Medicine Nephrology
DX: N18.4 Chronic kidney disease, stage 4 (severe) (principal); D64.9 Anemia, unspecified; N17.9 Acute kidney failure, unspecified
CPT/HCPCS: 36415; 80069; 82728; 83540; 83550; 83970; 85027

== ENCOUNTER 2018-08-28 10:02 | Outpatient (RCR) | payer MEDICARE, OTHER, SELFPAY ==
[2018-06-26 10:43] VITALS: BMI 31.5
[2018-08-05 11:22] LABS: International Normalized Ratio 2.6; Prothrombin Time (Protime)PT. 27.5 SECONDS (11.7-14.9)
[2018-08-28 10:49] LABS: International Normalized Ratio 2.1; Prothrombin Time (Protime)PT. 23.2 SECONDS (11.7-14.9)
== END 2018-08-28 11:02 | disposition home or self-care (01) ==
LOC: LAB 10:02
PROVIDERS: Family Provider Family Medicine; PCP Family Medicine; Referring Provider Internal Medicine Cardiovascular Disease; Visit Provider Internal Medicine Cardiovascular Disease
DX: I48.91 Unspecified atrial fibrillation (principal); Z79.01 Long term (current) use of 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
CPT/HCPCS: 36415; 85610

== ENCOUNTER 2018-09-18 10:54 | Outpatient (RCR) | payer MEDICARE, OTHER, SELFPAY ==
[2018-06-26 10:43] VITALS: BMI 31.5
[2018-09-18 13:43] LABS: International Normalized Ratio 3.1; Prothrombin Time (Protime)PT. 32.1 SECONDS (11.7-14.9)
== END 2018-09-29 12:00 | disposition home or self-care (01) ==
LOC: LAB 10:54
PROVIDERS: Family Provider Family Medicine; PCP Family Medicine; Referring Provider Internal Medicine Cardiovascular Disease; Visit Provider Internal Medicine Cardiovascular Disease
DX: I48.91 Unspecified atrial fibrillation (principal); Z79.01 Long term (current) use of 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
CPT/HCPCS: 36415; 85610

== ENCOUNTER 2018-10-24 11:33 | Outpatient (RCR) | payer MEDICARE, OTHER, SELFPAY ==
[2018-09-27 13:11] VITALS: BMI 31.6
[2018-10-04 11:14] LABS: International Normalized Ratio 2.9; Prothrombin Time (Protime)PT. 30.3 SECONDS (11.7-14.9)
[2018-10-04 11:52] LABS: AST(SGOT) 23 U/L (15-37); Alanine Aminotransfer ALT/SGPT 12 U/L (13-56); Albumin, Serum 3.6 g/dL (3.2-5.0); Alkaline Phosphatase 145 U/L (45-117); Bilirubin, Direct 0.47 mg/dL (0.00-0.30); Cholesterol 115 mg/dL (200); Globulin 3.6 g/dL (2.2-4.2); High Density Lipoprotein 36 mg/dL; Protein, Total 7.2 g/dL (6.4-8.2); Triglycerides 110 mg/dL; Very Low Density Lipoprotein 22 mg/dL (5-40)
[2018-10-24 12:21] LABS: International Normalized Ratio 2.2; Prothrombin Time (Protime)PT. 24.8 SECONDS (11.7-14.9)
== END 2018-10-30 16:16 | disposition home or self-care (01) ==
LOC: LAB 11:33
PROVIDERS: Family Provider Family Medicine; PCP Family Medicine; Referring Provider Internal Medicine Cardiovascular Disease; Visit Provider Internal Medicine Cardiovascular Disease
DX: I48.91 Unspecified atrial fibrillation (principal); Z79.01 Long term (current) use of 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; I25.10 Atherosclerotic heart disease of native coronary artery without angina pectoris; I25.5 Ischemic cardiomyopathy
CPT/HCPCS: 36415; 80061; 80076; 85610

== ENCOUNTER 2018-11-13 08:31 | Outpatient (RCR) | payer MEDICARE, OTHER, SELFPAY ==
[2018-09-27 13:11] VITALS: BMI 31.6
[2018-11-13 10:25] LABS: Prothrombin Time (Protime)PT. 22.7 SECONDS (11.7-14.9)
== END 2018-11-13 09:31 | disposition home or self-care (01) ==
LOC: LAB 08:31
PROVIDERS: Family Provider Family Medicine; PCP Family Medicine; Referring Provider Internal Medicine Cardiovascular Disease; Visit Provider Internal Medicine Cardiovascular Disease
DX: I48.91 Unspecified atrial fibrillation (principal); Z79.01 Long term (current) use of 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
CPT/HCPCS: 36415; 85610

== ENCOUNTER → 2018-11-27 12:54 | Outpatient (CLI) | payer MEDICARE, OTHER, SELFPAY ==
[2018-09-27 13:11] VITALS: BMI 31.6
--- NOTE | 2018-11-27 12:56 | ECHOD_ITS ---
Reason For Study: Valve Replacement Eval Procedure This was a 2D Doppler, Color Flow transthoracic echocardiogram. Myocardial strain analysis was performed in this exam to aid in the assessment of cardiac function. Exam performed in department. Left Ventricle Mildly dilated left ventricle. The estimated ejection fraction is 15 %. Septal motion consistent with IVCD. There is severe global hypokinesis of the left ventricle. Right Ventricle Normal size and thickness. ICD or pacer leads identified within the right ventricle. Normal systolic function. Atria The left atrium is moderately enlarged. Normal right atrium. Normal atrial septum. Mitral Valve Peak transmitral valve gradient 16 mmHg. Mean transmitral valve gradient 4 mmHg. Stable appearing bioprosthetic mitral valve apparatus. Tricuspid Valve Normal tricuspid valve. Mild to moderate (1-2+) tricuspid valve insufficiency. Right ventricular systolic pressure estimated to be 42 mmHg. Mild pulmonary hypertension. Aortic Valve Trisinus/trileaflet aortic valve. Pulmonic Valve Normal pulmonic valve. Trivial pulmonic valve insufficiency. Great Vessels Calcified aortic root. Normal arch. The inferior vena cava is dilated. Inferior vena cava collapse with sniff. Pericardium/Pleural No pericardial effusion. MMode/2D Measurements & Calculations LVIDd: 4.7 cm IVSd: 1.1 cm LAV(MOD-bp): 65.0 ml LVIDs: 4.0 cm LVPWd: 1.4 cm LAV(MOD-bp) Indexed: 35.4 ml/m2 FS: 15.2 % LAV(MOD-sp2): 60.3 ml LAV(MOD-sp4): 69.9 ml SV(MOD-sp4): 20.3 ml SV(sp4-el): 24.9 ml LVAd ap4: 34.1 cm2 EDV(MOD-sp4): 110.1 ml EDV(sp4-el): 112.9 ml LVAs ap4: 28.7 cm2 ESV(MOD-sp4): 89.8 ml ESV(sp4-el): 88.0 ml EF(MOD-sp4): 18.4 % EF(sp4-el): 22.1 % LA A4 area: 21.9 cm2 RA A4 area: 17.3 cm2 Time Measurements MV dec time: 0.32 sec Doppler Measurements & Calculations MV E max magnus: 179.6 cm/sec Lat Peak E' Magnus: 7.7 cm/sec Med Peak E' Magnus: 3.7 cm/sec MV A max magnus: 66.0 cm/sec E/E' lat: 23.4 E/E' med: 48.8 MV E/A: 2.7 MV V2 max: 201.3 cm/sec MV P1/2t max magnus: 202.5 cm/sec Ao V2 max: 110.4 cm/sec MV max P.2 mmHg MV P1/2t: 114.9 msec Ao max P.9 mmHg MV V2 mean: 97.0 cm/sec MV dec slope: 516.0 cm/sec2 Ao V2 mean: 74.5 cm/sec MV mean P.7 mmHg MVA(P1/2t): 1.9 cm2 Ao mean P.6 mmHg MV V2 VTI: 46.8 cm Ao V2 VTI: 22.2 cm LV V1 max: 60.0 cm/sec PA V2 max: 68.2 cm/sec PI end-d magnus: 135.5 cm/sec LV V1 max P.4 mmHg LV V1 mean P.68 mmHg LV V1 mean: 37.5 cm/sec LV V1 VTI: 12.2 cm TR max magnus: 304.6 cm/sec TR max P.1 mmHg Interpretation Summary Mildly dilated left ventricle. The estimated ejection fraction is 15 %. The left atrium is moderately enlarged. Stable appearing bioprosthetic mitral valve apparatus. Peak transmitral valve gradient 16 mmHg. Mean transmitral valve gradient 4 mmHg. Mild to moderate (1-2+) tricuspid valve insufficiency. Right ventricular systolic pressure estimated to be 42 mmHg. Mild pulmonary hypertension. Compared to echo report dated 11/06/2017, LV Function has worsened from 20-25% to 15%. RVSP has increased from 25 to 42 mm Hg. Ordering Physician: Salvador Tran Referring Physician: Gilberto Rios Performed By: Lg Leal RCS
== END ==
PROVIDERS: Family Provider Family Medicine; PCP Family Medicine; Referring Provider Internal Medicine Cardiovascular Disease; Visit Provider Internal Medicine Cardiovascular Disease
DX: I25.5 Ischemic cardiomyopathy (principal); I47.2 Ventricular tachycardia; I48.1 Persistent atrial fibrillation; Z95.1 Presence of aortocoronary bypass graft; Z95.3 Presence of xenogenic heart valve; Z95.810 Presence of automatic (implantable) cardiac defibrillator; I27.21 Secondary pulmonary arterial hypertension
CPT/HCPCS: 93306

== ENCOUNTER 2018-12-16 13:27 | Outpatient (RCR) | payer MEDICARE, OTHER, SELFPAY ==
[2018-09-27 13:11] VITALS: BMI 31.6
[2018-12-16 14:02] LABS: Hematocrit 40.6 % (37-47); Hemoglobin 13.2 g/dL (12.0-15.0); Mean Corp Hgb Conc 32.5 g/dL (32-36); Mean Corpuscular Hgb 29.8 pg (27.0-32.0); Mean Corpuscular Volume 91.6 fL (81-99); Mean Platelet Vol. 9.8 fl (6.2-12.0); Platelet Count 117 K/mm3 (150-450); RBC Distribution Width CV 15.8 % (11.6-14.6); RBC Distribution Width SD 53.8 fl (35.1-43.9); Red Blood Count 4.43 M/mm3 (4.2-5.4); White Blood Count 4.9 K/mm3 (4.4-11.0)
[2018-12-16 14:11] LABS: International Normalized Ratio 1.6; Prothrombin Time (Protime)PT. 19.2 SECONDS (11.7-14.9)
[2018-12-16 14:31] LABS: Albumin, Serum 3.7 g/dL (3.2-5.0); BUN 41 mg/dL (7-18); BUN/Creat Ratio 17.5 RATIO (10-20); Calcium,Total 8.9 mg/dL (8.5-10.1); Chloride 101 mmol/L (98-107); Creatinine, Serum 2.34 mg/dL (0.55-1.02); EST Glomerular Filtration Rate 21 mL/min (>60); Est Glom Filt Rate - Afr Amer 26 mL/min (>60); Glucose 180 mg/dL (74-106); Phosphorus 3.5 mg/dL (2.5-4.9); Potassium 4.1 mmol/L (3.5-5.1); Sodium Level 141 mmol/L (136-145)
[2018-12-16 14:39] LABS: PTHIN 174.4 pg/mL (18.4-80.1)
== END 2018-12-16 14:00 | disposition home or self-care (01) ==
LOC: LAB 13:27
PROVIDERS: Internal Medicine Nephrology; Family Provider Family Medicine; PCP Family Medicine; Referring Provider Internal Medicine Cardiovascular Disease; Visit Provider Internal Medicine Cardiovascular Disease
DX: I48.91 Unspecified atrial fibrillation (principal); Z79.01 Long term (current) use of 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
CPT/HCPCS: 36415; 80069; 83970; 85027; 85610

== ENCOUNTER 2019-01-02 11:26 | Outpatient (RCR) | payer MEDICARE, OTHER, SELFPAY ==
[2018-09-27 13:11] VITALS: BMI 31.6
[2019-01-02 12:07] LABS: International Normalized Ratio 1.6; Prothrombin Time (Protime)PT. 19.1 SECONDS (11.7-14.9)
[2019-01-16 13:24] LABS: International Normalized Ratio 1.7; Prothrombin Time (Protime)PT. 19.7 SECONDS (11.7-14.9)
== END 2019-01-02 18:00 | disposition home or self-care (01) ==
LOC: LAB 11:26
PROVIDERS: Family Provider Family Medicine; PCP Family Medicine; Referring Provider Internal Medicine Cardiovascular Disease; Visit Provider Internal Medicine Cardiovascular Disease
DX: I48.91 Unspecified atrial fibrillation (principal); Z79.01 Long term (current) use of 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
CPT/HCPCS: 36415; 85610

== ENCOUNTER 2019-02-14 11:09 | Outpatient (RCR) | payer MEDICARE, OTHER, SELFPAY ==
[2019-01-20 09:59] VITALS: BMI 28.4
[2019-01-31 13:28] LABS: Prothrombin Time (Protime)PT. 22.8 SECONDS (11.7-14.9)
[2019-02-14 11:50] LABS: International Normalized Ratio 2.3; Prothrombin Time (Protime)PT. 25.3 SECONDS (11.7-14.9)
== END 2019-02-14 18:00 | disposition home or self-care (01) ==
LOC: LAB 11:09
PROVIDERS: Family Provider Family Medicine; PCP Family Medicine; Referring Provider Internal Medicine Cardiovascular Disease; Visit Provider Internal Medicine Cardiovascular Disease
DX: I48.91 Unspecified atrial fibrillation (principal); Z79.01 Long term (current) use of 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
CPT/HCPCS: 36415; 85610

== ENCOUNTER 2019-02-21 08:06 | Emergency (ER) | payer MEDICARE, OTHER, SELFPAY ==
[2019-01-20 09:59] VITALS: BMI 28.4
[2019-02-21 08:07] VITALS: BP 112/47; PULSE 98; RESP 15; TEMP 36.1; O2SAT 99; BMI 29.0
--- NOTE | 2019-02-21 08:12 | CT_ITS ---
STUDY: CT BRAIN WITHOUT CONTRAST REASON FOR EXAM: Female, 83 years old. Swelling of the forehead following a fall. The patient is on Coumadin. RADIATION DOSAGE (If Supplied By Facility): CTDIvol = ( 44.99 ) mGy, DLP = ( 762.36 ) mGycm TECHNIQUE: Transaxial CT imaging of the brain was performed without administration of intravenous contrast material. Individualized dose optimization techniques were used for this CT. COMPARISON: No relevant priors. FINDINGS: Moderate sized scalp hematoma overlying the midline of the frontal bones bilaterally. Normal calvarium. There is mild cerebral atrophy with widening of the extra-axial spaces and ventricular dilatation. There are areas of decreased attenuation within the white matter tracts of the supratentorial brain, consistent with microvascular disease changes. Normal basal ganglia and thalami. Normal brainstem. Normal cerebellum. There is no intracranial hemorrhage. There are no findings of an acute ischemic infarction. Atherosclerotic calcification of the cavernous portions of the internal carotid arteries bilaterally. Nondisplaced nasal fracture with soft tissue swelling. CT/Brain/Head without Contrast IMPRESSION: Chronic involutional changes of the brain. Scalp hematoma overlying the frontal bones. Nondisplaced nasal fracture with overlying soft tissue swelling. Electronically Signed: Hema Barros, at 9:36 EST , Service support ,
--- NOTE | 2019-02-21 08:15 | ED.DCSUM_ITS ---
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 Negative for: Parasthesias, Weakness, Loss of function, Inability to ambulate, Loss of consciousness, Amnesia Narrative: It is an elderly woman with multiple medical problems who is on Coumadin for paroxysmal A fibrillation. She states she walked outside to get the newspaper. She bent over. She fell forward striking her head against the ground. She was dazed. She does report headache. She denies nausea or vomiting. She denies visual, ocular auditory symptoms. Denies neck pain. She denies paresthesia, anesthesia or motor weakness. She denies cardiac arrest or symptoms. Denies black or maroon stool. She does report bruising easily. She has no other symptoms or complaints. Tetanus immunization unknown. This will be updated. Prior similar symptoms: No Recent Illness/Hospitalization: No - Past Medical History (1) Paroxysmal atrial fibrillation Status: Chronic (2) H/O right nephrectomy Status: Acute (3) Left ureteral calculus Status: Acute (4) Congestive heart failure Status: Acute (5) History of mitral valve replacement with bioprosthetic valve Status: Chronic Comment: 27mm [place] Epic bioprosthesis 01/18/17 (6) Essential hypertension Status: Chronic (7) Ventricular tachyarrhythmia Status: Chronic (8) H/O coronary artery bypass surgery Status: Chronic Comment: S/P bypass surgery in [address] 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 (13) Chronic kidney disease, stage 3 Status: Chronic (14) Type 2 diabetes mellitus Status: Chronic (15) History of breast cancer Status: Chronic (16) History of renal cell carcinoma Status: Chronic Past Medical History - Allergies and Home Meds Allergies/Adverse Reactions: Allergies erythromycin base Adverse Reaction (Verified 01/20/19 09:59) Vomiting meperidine [From Demerol] Adverse Reaction (Verified 01/20/19 09:59) Vomiting Primary Care Physician: Gilberto Rios MD [Primary Care Provider] - Prior records reviewed: Yes Surgical History: appendectomy, cholecystectomy, tonsillectomy, - - hysterectomy, mastectomy, nephrectomy Lives: Alone Smoking Status: Never smoker Alcohol: None Drugs: None - Family History Maternal Family History: Family History (Last Reviewed 09/27/18 @ 13:12 by Pat Johnson) Brother CAD (coronary artery disease) Family History: Reports: Unknown - Patient states she does not know her maternal family history but believes she was healthy. Paternal Family History: Family History (Last Reviewed 09/27/18 @ 13:12 by Pat Johnson) Brother CAD (coronary artery disease) Family History: Reports: Unknown - Patient states she does not know her paternal family history but notes he was healthy. Sibling Family History: Family History (Last Reviewed 09/27/18 @ 13:12 by Pat Johnson) Brother CAD (coronary artery disease) Family History: Reports: Heart Disease Review of Systems General: Denies: Chills, Fever, Sweats Eyes: Denies: Visual changes - bilaterally, Blurred Vision - bilaterally, Diplopia ENT: Denies: Bilateral ear pain, Rhinorrhea, Sore throat Cardiovascular: Denies: Chest pain, Palpitations Respiratory: Denies: Dyspnea, Cough, Dyspnea on exertion Gastrointestinal: Denies: Abdominal pain, Nausea, Vomiting, Diarrhea, Melena, Hematochezia Genitourinary: Denies: Dysuria, Hematuria, Frequency Musculoskeletal: Denies: Myalgias, Arthralgias, Neck pain, Back pain, Swelling, Extremity Pain Skin: Denies: Rash, Abscess, Abrasions, Wounds Neurological: Reports: Headache. Denies: Weakness, Parasthesia, Numbness Hematologic: Reports: Easy bruising, Easy bleeding Physical Exam Vital Signs/Narrative: Vital Signs Temp Pulse Resp BP Pulse Ox 02/21/19 08:07 97 F L 98 15 112/47 L 99 Inital Vital Signs reviewed: Yes General: Well nourished, Well developed Head: Normocephalic, Trauma, Tenderness, - - Large subcutaneous hematoma noted above the bridge of the nose. There is bleeding from site. This will need to be cleaned to determine extent of injury. There is no palpable depression. There are no clinical findings of basal skull fracture. Eyes: Perrl, EOMI, - - There is no subconjunctival hemorrhage noted.. Negative for: Pale conjunctiva, Scleral icterus ENT: TM's clear, No hemotympanum or drainage, No trauma, Nasal trauma. Negative for: Hemotympanum, Otorrhea, Nasal septal hematoma Neck: Nontender, Full ROM. Negative for: Spinal Tenderness, Paraspinal Tenderness Cardiovascular: Regular rate, Regular rhythm, No murmurs, Normal S1, Normal S2 Respiratory: No distress, CTA bilaterally, Chest nontender Abdomen: Soft, Nontender, Nondistended, Normal bowel sounds Back: Nontender. Negative for: Spinal Tenderness, Paraspinal Tenderness Skin: Normal color, No rash, Trauma Neurological: Alert, Oriented x3, Cranial nerves II-XII grossly intact, Normal Strength, Normal Sensation, Normal DTR Psychological: Normal affect, Normal Mood - Glascow Coma Scale Eye Opening: Spontaneous Motor: Obeys Commands Verbal: Oriented Coma Scale Total: 15 Diagnostic/Tx/Re-eval Impressions Brain CT 02/21/19 08:12 IMPRESSION: Chronic involutional changes of the brain. Scalp hematoma overlying the frontal bones. Nondisplaced nasal fracture with overlying soft tissue swelling. Electronically Signed: Hema Barros, at 9:36 EST , Service support , 02/21/19 08:12 Brain/Head without Contrast [CT] Stat Laboratory Results 02/21/19 08:55 PT 24.3 H INR 2.2 Since INR is less than 3 it is safe for patient to be discharged home. She is scheduled for a PT/INR next week. Dr. Azeem Tran follows her PT/INR. - Medical Decision Making Patient was made n.p.o. IV was established. PT/INR was obtained since patient is on Coumadin. Because she fell with significant subtenons hematoma complaining of headache and on anticoagulant per the [place] CT head rule imaging is indicated. CT of the head was obtained to rule out intracranial bleed. Tetanus was updated. Laceration No standard instances Length: 0.98 in Depth: Sub Q Shape: Irregular Prep: Sterile Conditions, Shure-Clens Laceration Repair: Local Irrigated (ml): 150 Number of Sutures/Joaquina: 7 Stitch Description: Ethilon, Simple, 6-0 ED Disposition - Plan for ED Patient: Disposition: Home or Assisted Living Diagnosis: Concussion, custodial (current) use of 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, Fracture, nose, open Instructions: CONCUSSION, No Wake Up, FRACTURE, Nose (with X-Ray) Prescriptions: Cephalexin [Keflex] 500 mg PO TID #14 cap Transmission Status: Pending to [id number] Referrals: Vignesh Lopez MD [STAFF PHYSICIAN] - 3-5 Days Gilberto Rios MD [Primary Care Provider] - As Needed
[2019-02-21 09:26] LABS: International Normalized Ratio 2.2; Prothrombin Time (Protime)PT. 24.3 SECONDS (11.7-14.9)
[2019-02-21] MEDS: Diphth,Pertuss(Acell),Tet Vac 0.5 ML Vial IM (09:41)
[2019-02-21 11:20] VITALS: RESP 18
[2019-02-21 11:24] VITALS: BP 92/57; PULSE 77; RESP 12; O2SAT 97
[2019-02-21] MEDS: Cephalexin 250 MG Capsule 500 MG PO (11:28)
== END 2019-02-21 11:33 | disposition home or self-care (01) ==
PROVIDERS: Emergency Provider Emergency Medicine; Family Provider Family Medicine; PCP Family Medicine
DX: S02.2XXA Fracture of nasal bones, initial encounter for closed fracture (principal); S06.0X0A Concussion without loss of consciousness, initial encounter; W01.10XA Fall on same level from slipping, tripping and stumbling with subsequent striking against unspecified object, initial encounter; Y93.01 Activity, walking, marching and hiking; Y92.9 Unspecified place or not applicable; Y99.9 Unspecified external cause status; I48.0 Paroxysmal atrial fibrillation; I13.0 Hypertensive heart and chronic kidney disease with heart failure and stage 1 through stage 4 chronic kidney disease, or unspecified chronic kidney disease; I50.9 Heart failure, unspecified; N18.3 Chronic kidney disease, stage 3 (moderate); E11.22 Type 2 diabetes mellitus with diabetic chronic kidney disease; I27.21 Secondary pulmonary arterial hypertension; I25.5 Ischemic cardiomyopathy; Z79.01 Long term (current) use of 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; Z88.5 Allergy status to narcotic agent; Z88.1 Allergy status to other antibiotic agents; Z85.3 Personal history of malignant neoplasm of breast; Z85.528 Personal history of other malignant neoplasm of kidney; Z87.442 Personal history of urinary calculi; Z95.1 Presence of aortocoronary bypass graft; Z95.3 Presence of xenogenic heart valve; Z90.5 Acquired absence of kidney; Z90.710 Acquired absence of both cervix and uterus; Z90.49 Acquired absence of other specified parts of digestive tract
CPT/HCPCS: 12011; 70450; 85610; 90715; 99285; J7030; A4216

== ENCOUNTER → 2019-02-25 09:13 | Outpatient (CLI) | payer MEDICARE, OTHER, SELFPAY ==
[2018-09-27 13:11] VITALS: BMI 31.6
[2019-02-21 08:07] VITALS: BMI 29.0
[2019-02-25 09:46] LABS: Hematocrit 38.5 % (37-47); Hemoglobin 12.7 g/dL (12.0-15.0); Mean Corpuscular Hgb 30.6 pg (27.0-32.0); Mean Corpuscular Volume 92.8 fL (81-99); Mean Platelet Vol. 9.4 fl (6.2-12.0); Platelet Count 128 K/mm3 (150-450); RBC Distribution Width SD 44.2 fl (35.1-43.9); Red Blood Count 4.15 M/mm3 (4.2-5.4); White Blood Count 5.2 K/mm3 (4.4-11.0)
[2019-02-25 09:51] LABS: Protein, Urine (Random) 21.3 mg/dL (<11.9); Protein:Creat Ratio 189 mg/g CRE (0-200)
[2019-02-25 10:19] LABS: Albumin, Serum 3.9 g/dL (3.2-5.0); BUN 49 mg/dL (7-18); Calcium,Total 9.5 mg/dL (8.5-10.1); Chloride 102 mmol/L (98-107); Creatinine, Serum 2.33 mg/dL (0.55-1.02); EST Glomerular Filtration Rate 21 mL/min (>60); Est Glom Filt Rate - Afr Amer 26 mL/min (>60); Glucose 100 mg/dL (74-106); Phosphorus 3.3 mg/dL (2.5-4.9); Potassium 4.3 mmol/L (3.5-5.1); Sodium Level 137 mmol/L (136-145)
[2019-02-25 10:29] LABS: Vitamin D,25 Hydroxy 30.8 ng/mL (29.95-100.01)
[2019-02-25 10:30] LABS: PTHIN 93.7 pg/mL (18.4-80.1)
== END ==
PROVIDERS: Family Provider Family Medicine; PCP Family Medicine; Referring Provider Internal Medicine Nephrology; Visit Provider Internal Medicine Nephrology
DX: E11.22 Type 2 diabetes mellitus with diabetic chronic kidney disease (principal); N18.4 Chronic kidney disease, stage 4 (severe); D50.9 Iron deficiency anemia, unspecified; N25.81 Secondary hyperparathyroidism of renal origin
CPT/HCPCS: 36415; 80069; 82306; 82570; 83970; 84156; 85027

== ENCOUNTER 2019-03-18 09:17 | Outpatient (RCR) | payer MEDICARE, OTHER, SELFPAY ==
[2019-03-18 10:56] LABS: International Normalized Ratio 2.6; Prothrombin Time (Protime)PT. 27.5 SECONDS (11.7-14.9)
== END 2019-03-18 18:00 | disposition home or self-care (01) ==
LOC: LAB 09:17
PROVIDERS: Family Provider Family Medicine; PCP Family Medicine; Referring Provider Internal Medicine Cardiovascular Disease; Visit Provider Internal Medicine Cardiovascular Disease
DX: I48.91 Unspecified atrial fibrillation (principal); Z79.01 Long term (current) use of 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
CPT/HCPCS: 36415; 85610

== ENCOUNTER 2019-04-15 09:50 | Outpatient (RCR) | payer MEDICARE, OTHER, SELFPAY ==
[2019-04-15 10:52] LABS: International Normalized Ratio 2.9; Prothrombin Time (Protime)PT. 30.3 SECONDS (11.7-14.9)
== END 2019-04-15 18:00 | disposition home or self-care (01) ==
LOC: LAB 09:50
PROVIDERS: Family Provider Family Medicine; PCP Family Medicine; Referring Provider Internal Medicine Cardiovascular Disease; Visit Provider Internal Medicine Cardiovascular Disease
DX: I48.91 Unspecified atrial fibrillation (principal); Z79.01 Long term (current) use of 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
CPT/HCPCS: 36415; 85610

== ENCOUNTER 2019-05-13 09:49 | Outpatient (RCR) | payer MEDICARE, OTHER, SELFPAY ==
[2019-05-13 10:38] LABS: International Normalized Ratio 2.7
== END 2019-05-13 18:00 | disposition home or self-care (01) ==
LOC: LAB 09:49
PROVIDERS: Family Provider Family Medicine; PCP Family Medicine; Referring Provider Internal Medicine Cardiovascular Disease; Visit Provider Internal Medicine Cardiovascular Disease
DX: I48.0 Paroxysmal atrial fibrillation (principal); Z79.01 Long term (current) use of 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
CPT/HCPCS: 36415; 85610

== ENCOUNTER 2019-06-16 15:45 | Outpatient (RCR) | payer MEDICARE, OTHER, SELFPAY ==
[2019-06-16 16:21] LABS: International Normalized Ratio 2.1; Prothrombin Time (Protime)PT. 23.8 SECONDS (11.7-14.9)
== END 2019-06-16 18:00 | disposition home or self-care (01) ==
LOC: LAB 15:45
PROVIDERS: Family Provider Family Medicine; PCP Family Medicine; Referring Provider Internal Medicine Cardiovascular Disease; Visit Provider Internal Medicine Cardiovascular Disease
DX: I48.0 Paroxysmal atrial fibrillation (principal); Z79.01 Long term (current) use of 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
CPT/HCPCS: 36415; 85610

== ENCOUNTER → 2019-07-07 09:26 | Outpatient (CLI) | payer MEDICARE, OTHER, SELFPAY ==
[2019-07-07 10:17] LABS: 24HR. UA Prot. Total Volume 1125 mL; Urine Protein (24 Hour) 13.6 mg/dL (<11.9)
[2019-07-07 10:54] LABS: Albumin, Serum 3.7 g/dL (3.2-5.0); BUN 44 mg/dL (7-18); BUN/Creat Ratio 22.8 RATIO (10-20); Calcium,Total 9.2 mg/dL (8.5-10.1); Chloride 108 mmol/L (98-107); Creat.Clear Total Volume 1125 mL; Creatinine Clearance 32 ml/min (100-200); Creatinine Serum Creat 1.9 mg/dL (0.6-1.0); Creatinine Urine 79.3 mg/dL (NO RANGE EST.); Creatinine, Serum 1.93 mg/dL (0.55-1.02); EST Glomerular Filtration Rate 26 mL/min (>60); Est Glom Filt Rate - Afr Amer 32 mL/min (>60); Glucose 89 mg/dL (74-106); Phosphorus 3.3 mg/dL (2.5-4.9); Potassium 4.4 mmol/L (3.5-5.1); Sodium Level 140 mmol/L (136-145)
[2019-07-07 10:55] LABS: Protein, Urine (Random) 25.8 mg/dL (<11.9); Protein:Creat Ratio 213 mg/g CRE (0-200)
[2019-07-07 11:10] LABS: PTHIN 112.9 pg/mL (18.4-80.1)
== END ==
PROVIDERS: PCP Family Medicine; Referring Provider Internal Medicine Nephrology; Visit Provider Internal Medicine Nephrology
DX: E11.22 Type 2 diabetes mellitus with diabetic chronic kidney disease (principal); I12.9 Hypertensive chronic kidney disease with stage 1 through stage 4 chronic kidney disease, or unspecified chronic kidney disease; N18.4 Chronic kidney disease, stage 4 (severe)
CPT/HCPCS: 36415; 80069; 81050; 82570; 82575; 83970; 84156

== ENCOUNTER 2019-07-15 10:45 | Outpatient (RCR) | payer MEDICARE, OTHER, SELFPAY ==
[2019-07-15 11:55] LABS: International Normalized Ratio 2.5; Prothrombin Time (Protime)PT. 26.5 SECONDS (11.7-14.9)
== END 2019-07-31 18:00 | disposition home or self-care (01) ==
LOC: LAB 10:45
PROVIDERS: Family Provider Family Medicine; PCP Family Medicine; Referring Provider Internal Medicine Cardiovascular Disease; Visit Provider Internal Medicine Cardiovascular Disease
DX: I48.0 Paroxysmal atrial fibrillation (principal); Z79.01 Long term (current) use of 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
CPT/HCPCS: 36415; 85610

== ENCOUNTER 2019-08-13 10:29 | Outpatient (RCR) | payer MEDICARE, OTHER, SELFPAY ==
[2019-08-04 10:17] VITALS: BMI 30.1
[2019-08-13 11:22] LABS: International Normalized Ratio 2.8; Prothrombin Time (Protime)PT. 28.8 SECONDS (11.7-14.9)
== END 2019-08-13 18:00 | disposition home or self-care (01) ==
LOC: LAB 10:29
PROVIDERS: Family Provider Family Medicine; PCP Family Medicine; Referring Provider Internal Medicine Cardiovascular Disease; Visit Provider Internal Medicine Cardiovascular Disease
DX: I48.0 Paroxysmal atrial fibrillation (principal); Z79.01 Long term (current) use of 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
CPT/HCPCS: 36415; 85610

== ENCOUNTER 2019-09-09 10:31 | Outpatient (RCR) | payer MEDICARE, OTHER, SELFPAY ==
[2019-08-04 10:17] VITALS: BMI 30.1
[2019-09-09 12:23] LABS: International Normalized Ratio 2.5; Prothrombin Time (Protime)PT. 26.3 SECONDS (11.7-14.9)
== END 2019-09-09 18:00 | disposition home or self-care (01) ==
LOC: LAB 10:31
PROVIDERS: Family Provider Family Medicine; PCP Family Medicine; Referring Provider Internal Medicine Cardiovascular Disease; Visit Provider Internal Medicine Cardiovascular Disease
DX: I48.0 Paroxysmal atrial fibrillation (principal); Z79.01 Long term (current) use of 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
CPT/HCPCS: 36415; 85610

== ENCOUNTER 2019-10-28 09:33 | Outpatient (RCR) | payer MEDICARE, OTHER, SELFPAY ==
[2019-08-04 10:17] VITALS: BMI 30.1
[2019-10-08 11:07] LABS: International Normalized Ratio 2.6; Prothrombin Time (Protime)PT. 27.1 SECONDS (11.7-14.9)
[2019-10-28 10:30] LABS: Hematocrit 42.8 % (37-47); Hemoglobin 13.1 g/dL (12.0-15.0); Mean Corp Hgb Conc 30.6 g/dL (32-36); Mean Corpuscular Hgb 28.8 pg (27.0-32.0); Mean Corpuscular Volume 94.1 fL (81-99); Mean Platelet Vol. 9.9 fl (6.2-12.0); Platelet Count 110 K/mm3 (150-450); RBC Distribution Width CV 16.9 % (11.6-14.6); RBC Distribution Width SD 56.8 fl (35.1-43.9); Red Blood Count 4.55 M/mm3 (4.2-5.4); White Blood Count 4.2 K/mm3 (4.4-11.0)
[2019-10-28 11:05] LABS: International Normalized Ratio 3.4; Prothrombin Time (Protime)PT. 33.8 SECONDS (11.7-14.9)
[2019-10-28 11:24] LABS: AST(SGOT) 20 U/L (15-37); Alanine Aminotransfer ALT/SGPT 21 U/L (13-56); Albumin, Serum 3.5 g/dL (3.2-5.0); Alkaline Phosphatase 119 U/L (45-117); Anion Gap 3 (5-15); BUN 29 mg/dL (7-18); BUN/Creat Ratio 13.6 RATIO (10-20); Bilirubin, Direct 0.43 mg/dL (0.00-0.30); Calcium,Total 8.7 mg/dL (8.5-10.1); Chloride 105 mmol/L (98-107); Cholesterol 119 mg/dL (200); Creatinine, Serum 2.14 mg/dL (0.55-1.02); EST Glomerular Filtration Rate 23 mL/min (>60); Est Glom Filt Rate - Afr Amer 28 mL/min (>60); Globulin 3.9 g/dL (2.2-4.2); Glucose 92 mg/dL (74-106); High Density Lipoprotein 37 mg/dL; Phosphorus 3.4 mg/dL (2.5-4.9); Potassium 4.3 mmol/L (3.5-5.1); Protein, Total 7.4 g/dL (6.4-8.2); Sodium Level 138 mmol/L (136-145); Triglycerides 100 mg/dL; Very Low Density Lipoprotein 20 mg/dL (5-40)
== END 2019-10-28 18:00 | disposition home or self-care (01) ==
LOC: LAB 09:33
PROVIDERS: Internal Medicine Nephrology; Family Provider Family Medicine; PCP Family Medicine; Referring Provider Internal Medicine Cardiovascular Disease; Visit Provider Internal Medicine Cardiovascular Disease
DX: I48.0 Paroxysmal atrial fibrillation (principal); Z79.01 Long term (current) use of 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; I25.10 Atherosclerotic heart disease of native coronary artery without angina pectoris; Z95.1 Presence of aortocoronary bypass graft
CPT/HCPCS: 36415; 80048; 80061; 80076; 84100; 85027; 85610

== ENCOUNTER 2019-11-25 10:23 | Outpatient (RCR) | payer MEDICARE, OTHER, SELFPAY ==
[2019-08-04 10:17] VITALS: BMI 30.1
[2019-11-11 11:32] LABS: Prothrombin Time (Protime)PT. 35.7 SECONDS (11.7-14.9)
[2019-11-11 11:38] LABS: International Normalized Ratio 3.6
[2019-11-25 11:08] LABS: Prothrombin Time (Protime)PT. 30.8 SECONDS (11.7-14.9)
== END 2019-11-25 18:00 | disposition home or self-care (01) ==
LOC: LAB 10:23
PROVIDERS: Family Provider Family Medicine; PCP Family Medicine; Referring Provider Internal Medicine Cardiovascular Disease; Visit Provider Internal Medicine Cardiovascular Disease
DX: I48.0 Paroxysmal atrial fibrillation (principal); Z79.01 Long term (current) use of 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
CPT/HCPCS: 36415; 85610

== ENCOUNTER 2019-12-23 10:34 | Outpatient (RCR) | payer MEDICARE, OTHER, SELFPAY ==
[2019-08-04 10:17] VITALS: BMI 30.1
[2019-12-03 12:54] VITALS: BMI 29.9
[2019-12-09 11:38] LABS: International Normalized Ratio 3.1; Prothrombin Time (Protime)PT. 31.7 SECONDS (11.7-14.9)
[2019-12-23 11:48] LABS: International Normalized Ratio 3.2; Prothrombin Time (Protime)PT. 32.2 SECONDS (11.7-14.9)
== END 2019-12-23 18:00 | disposition home or self-care (01) ==
LOC: LAB 10:34
PROVIDERS: Family Provider Family Medicine; PCP Family Medicine; Referring Provider Internal Medicine Cardiovascular Disease; Visit Provider Internal Medicine Cardiovascular Disease
DX: I48.0 Paroxysmal atrial fibrillation (principal); Z79.01 Long term (current) use of 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
CPT/HCPCS: 36415; 85610

== ENCOUNTER 2020-01-27 11:33 | Outpatient (RCR) | payer MEDICARE, OTHER, SELFPAY ==
[2019-12-03 12:54] VITALS: BMI 29.9
[2020-01-06 11:25] LABS: International Normalized Ratio 2.6; Prothrombin Time (Protime)PT. 27.3 SECONDS (11.7-14.9)
[2020-01-27 12:10] LABS: International Normalized Ratio 3.2; Prothrombin Time (Protime)PT. 32.3 SECONDS (11.7-14.9)
== END 2020-01-27 18:00 | disposition home or self-care (01) ==
LOC: LAB 11:33
PROVIDERS: Family Provider Family Medicine; PCP Family Medicine; Referring Provider Specialist; Visit Provider Specialist
DX: I48.0 Paroxysmal atrial fibrillation (principal); Z79.01 Long term (current) use of 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
CPT/HCPCS: 36415; 85610

== ENCOUNTER → 2020-01-28 17:09 | Outpatient (CLI) | payer MEDICARE, OTHER, SELFPAY ==
[2019-12-03 12:54] VITALS: BMI 29.9
--- NOTE | 2020-01-28 17:15 | RAD_ITS ---
ACR Level 3 findings have been noted. An addendum which confirms receipt of the report will follow. HISTORY: low back pain after a fall COMPARISON: CT scan of the abdomen and pelvis from June 13, 2018 FINDINGS: # of images incl. paperwork: 4 XR Spine Lumbar. Trace levoscoliosis is slightly more accentuated than the previous study. Multilevel degenerative disc disease manifested by loss of disc height, endplate sclerosis, and small enthesophytes are present at many levels. Wedging to the L1 vertebral body has progressed and is new. This may be due to an acute insufficiency fracture extending to the anterior superior margin of the L1 vertebral body. Severe calcific atherosclerosis remains. Facet arthropathy persists. Cholecystectomy clips. RAD/L/S Spine Min 4 Views IMPRESSION: Increase wedging to the L1 vertebral body. The posterior margin of the vertebral body likely remains normal at 3.7 cm. The anterior margin is now at 2.2 cm. This is a 40% wedge insufficiency fracture new since June 13, 2018, and possibly acute. Persistent severe calcific atherosclerosis. at 0444 Reported and signed by: Bong Handley MD Electronically Signed: Bong Handley MD at 4:43 EDT Tel , Service support ,
== END ==
PROVIDERS: PCP Family Medicine; Referring Provider Family Medicine; Visit Provider Family Medicine
DX: M54.5 Low back pain (principal)
CPT/HCPCS: 72110

== ENCOUNTER 2020-02-12 14:45 | Outpatient (RCR) | payer MEDICARE, OTHER, SELFPAY ==
[2019-12-03 12:54] VITALS: BMI 29.9
[2020-02-12 15:31] LABS: International Normalized Ratio 1.3; Prothrombin Time (Protime)PT. 15.5 SECONDS (11.7-14.9)
== END 2020-02-12 18:00 | disposition home or self-care (01) ==
LOC: LAB 14:45
PROVIDERS: Family Provider Family Medicine; PCP Family Medicine; Referring Provider Specialist; Visit Provider Specialist
DX: I48.0 Paroxysmal atrial fibrillation (principal); Z79.01 Long term (current) use of 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
CPT/HCPCS: 36415; 85610

== ENCOUNTER 2020-02-12 18:12 | Observation (INO) | payer MEDICARE, OTHER, SELFPAY ==
[2019-12-03 12:54] VITALS: BMI 29.9
[2020-02-12 18:37] VITALS: BMI 28.3
[2020-02-12 18:43] VITALS: BMI 28.3
[2020-02-12 18:44] VITALS: BP 107/68; PULSE 74; RESP 18; TEMP 36.8; O2SAT 98
--- NOTE | 2020-02-12 19:12 | PCM.HP.STD ---
<Valdez Leroy PA - Last Filed: 02/12/20 19:12> Problem List (1) Intractable back pain Status: Acute (2) Debility Status: Chronic (3) CAD (coronary artery disease) Status: Chronic (4) Systolic CHF Status: Chronic (5) Atrial fibrillation, chronic Status: Chronic (6) History of mitral valve replacement with bioprosthetic valve Status: Chronic Comment: 27mm [employer] Epic bioprosthesis 01/18/17 (7) Essential hypertension Status: Chronic (8) Ventricular tachyarrhythmia Status: Chronic (9) H/O coronary artery bypass surgery Status: Chronic Comment: S/P bypass [place] [address] 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 marginal branch (10) Presence of implantable cardioverter-defibrillator (ICD) Status: Chronic Comment: [employer] 05/10/2009 (11) Secondary pulmonary arterial hypertension Status: Chronic (12) Ischemic cardiomyopathy Status: Chronic (13) Chronic kidney disease, stage 3 Status: Chronic (14) Type 2 diabetes mellitus Status: Chronic (15) Status post right nephrectomy Status: Chronic (16) Status post implantation of automatic cardioverter/defibrillator (AICD) Status: Chronic (17) History of breast cancer Status: Chronic (18) History of renal cell carcinoma Status: Chronic History of Present Illness Date of Admission: 02/12/20 Chief Complaint: Intractable back pain The patient is a 84 year old F with extensive past medical history including chronic atrial fibrillation, bioprosthetic mitral valve, ischemic cardiomyopathy with AICD in place, CAD with prior CABG, systolic congestive heart failure, breast cancer in remission, renal cell carcinoma in remission status post right nephrectomy, who presented to the hospital from the pain management office. Patient was going to have a kyphoplasty for a lumbar compression fracture however this could not be performed today as her INR was too high per the dip painter. The patient initially developed pain after having a fall onto her butt in a sitting position. This occurred at home about 10 days prior. She has had worsening of her pain since Sunday and increased difficulty ambulating and standing without help. She lives in independent living alone at [facility], her granddaughter comes to check on her sometimes however she is not able to provide the help she needs at home right now. Patient is agreeable to considering penitentiary or acute rehab in order to be able to stand and walk on her own again. Patient is otherwise been in her normal state of health. No recent infections, no chest pain, lightheadedness, dizziness, shortness of breath, increased lower extremity edema. Her bagman/woman is Dr. Ga, and her horticulture worker is Dr. Degroot. [] Past Medical History Past Medical History (Chronic Problems): Chronic Problems (Last Reviewed 12/03/19 @ 15:[address] Adam Ga MD) Debility (Chronic) CAD (coronary artery disease) (Chronic) Systolic CHF (Chronic) Atrial fibrillation, chronic (Chronic) Paroxysmal atrial fibrillation (Chronic) Persistent atrial fibrillation (Chronic) History of mitral valve replacement with bioprosthetic valve (Chronic ~01/18/17) 27mm [employer] Epic bioprosthesis 01/18/17 Essential hypertension (Chronic) Ventricular tachyarrhythmia (Chronic) H/O coronary artery bypass surgery (Chronic ~01/18/17) S/P bypass [place] [address] 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 marginal branch Presence of implantable cardioverter-defibrillator (ICD) (Chronic ~05/10/09) [employer] 05/10/2009 Secondary pulmonary arterial hypertension (Chronic) Ischemic cardiomyopathy (Chronic) Atherosclerosis of coronary artery of [place] heart without angina pectoris (Chronic) S/P bypass surgery in [address] 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 marginal branch intermediate project manager (current) use of 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 (Chronic) Acute on chronic systolic CHF (congestive heart failure) (Chronic) Chronic kidney disease, stage 3 (Chronic) Type 2 diabetes mellitus (Chronic) Status post right nephrectomy (Chronic) Status post implantation of automatic cardioverter/defibrillator (AICD) (Chronic) History of breast cancer (Chronic) History of renal cell carcinoma (Chronic) Medical History: Medical History (Last Reviewed 12/03/19 @ 15:[address] Adam Ga MD) Persistent atrial fibrillation (Chronic) I48.1 Ventricular tachyarrhythmia (Chronic) I47.2 Secondary pulmonary arterial hypertension (Chronic) I27.21 Ischemic cardiomyopathy (Chronic) I25.5 Atherosclerosis of coronary artery of [place] heart without angina pectoris (Chronic) I25.10 S/P bypass surgery [place] [address] 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 marginal branch intermediate project manager (current) use of 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 (Chronic) Z79.01 Acute on chronic systolic CHF (congestive heart failure) (Chronic) I50.23 Chronic kidney disease, stage 3 (Chronic) N18.3 Type 2 diabetes mellitus (Chronic) E11.9 History of breast cancer (Chronic) Z85.3 History of renal cell carcinoma (Chronic) Z85.528 Hypertension (Inactive) I10 Allergies erythromycin base Adverse Reaction (Verified 12/03/19 13:00) Vomiting meperidine [From Demerol] Adverse Reaction (Verified 12/03/19 13:00) Vomiting Home Medications: Ambulatory Orders Medication Instructions Recorded Niacin 250 mg PO DAILY 12/23/16 amiodarone 200 mg tablet 200 mg PO DAILY 90 Days #90 tab 04/19/17 C,E,Zinc,Copper 11/Bbbkf1l/Lut 1 tab PO DAILY 11/05/17 [Ocuvite Adult 50 Plus Softgel] Calcium Carbonate/Vitamin D3 1 tab PO DAILY 11/05/17 [Calcium 600-Vit D3 200 Tablet] Carboxymethylcellulose Sodium 1 drp EACH EYE TID 11/05/17 [Refresh Tears] Ferrous Sulfate [Iron] 325 mg PO DAILY 11/05/17 Allopurinol 100 mg PO DAILY 06/14/18 Tamsulosin HCl [Flomax] 0.4 mg PO DAILY #30 cap 06/15/18 bumetanide 1 mg tablet 1 mg PO DAILY 11/27/18 magnesium oxide 400 mg (241.3 mg 400 mg PO DAILY #90 tab 07/30/19 magnesium) tablet warfarin 3 mg tablet 3 mg PO DAILY #90 tab 11/03/19 fluorometholone 0.1 % eye 1 drp OPHTHALMIC QHS ml 12/03/19 drops,suspension metolazone 2.5 mg tablet 2.5 mg PO .COMPLEX PRN tab 12/03/19 metoprolol succinate 50 mg 50 mg PO DAILY #90 tab 12/03/19 tablet,extended release 24 hr amoxicillin 500 mg tablet 500 mg PO .COMPLEX #4 tab 01/20/20 Surgical History: Surgical History (Last Reviewed 12/03/19 @ 15:[address] Adam Ga MD) History of mitral valve replacement with bioprosthetic valve (Chronic) Onset Date: ~01/18/17 Z95.3 27mm [employer] Epic bioprosthesis 01/18/17 H/O coronary artery bypass surgery (Chronic) Onset Date: ~01/18/17 Z95.1 S/P bypass [place] [address] 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 marginal branch Presence of implantable cardioverter-defibrillator (ICD) (Chronic) Onset Date: ~05/10/09 Z95.810 [employer] 05/10/2009 Status post right nephrectomy (Chronic) Status post implantation of automatic cardioverter/defibrillator (AICD) (Chronic) Z95.810 History of left heart catheterization Onset Date: ~12/25/16 Z98.890 History of mitral valve replacement Z95.2 Mitral Valve Replacement with a 27mm [employer] Olegario bioprosthesis @ [facility] by Dr. Núñez History of partial mastectomy of left breast Onset Date: ~11/2003 Z98.890, Z90.12 History of total abdominal hysterectomy Z98.890, Z90.710 Hx of CABG Onset Date: ~12/2016 Z95.1 x2 ANGULO to LAD, SVG-OM; W/LAE occlusion with 35-mm Atricure Clip Hx of cholecystectomy Z98.890, Z90.49 Surgical History: appendectomy, cholecystectomy, tonsillectomy, - - hysterectomy, mastectomy, nephrectomy Psychiatric History: Anxiety WELLNESS PROGRAM ADMINISTRATOR History: No pertinent WELLNESS PROGRAM ADMINISTRATOR history Lives: Alone Smoking Status: Never smoker Tobacco Use: Non-smoker Alcohol: None Drugs: None - *Family History Maternal Family History: Family History (Last Reviewed 02/12/20 @ 19:21 by MCKAY Ahmadi) Brother CAD (coronary artery disease) History Items: Unknown - Patient states she does not know her maternal family history but believes she was healthy. Paternal Family History: Family History (Last Reviewed 02/12/20 @ 19:21 by MCKAY Ahmadi) Brother CAD (coronary artery disease) History Items: Unknown - Patient states she does not know her paternal family history but notes he was healthy. Sibling Family History: Family History (Last Reviewed 02/12/20 @ 19:21 by MCKAY Ahmadi) Brother CAD (coronary artery disease) History Items: Heart Disease Review of Systems Constitutional: Denies: Chills, Fever, Weight Change HEENT: Denies: Head Aches, Sinus Congestion, Sinus Drainage Cardiovascular: Denies: Chest Pain, Chest Pressure, Light Headedness, Palpitations, Syncope Respiratory: Denies: Cough, Shortness of Breath, Shortness of breath at rest, Sputum production Gastrointestinal: Denies: Abdominal Pain, Diarrhea, Nausea, Vomiting Genitourinary: Denies: Dysuria, Hesitancy, Urgency Musculoskeletal: Reports: Back Pain, Joint Pain - knees, Joint Tenderness Skin: Denies: Lesions, Rash, Wounds Neurological: Denies: Confusion, Focal weakness, Numbness, Tingling Psychiatric: Denies: Anxiety, Depression, Homicidal Ideations, Suicidal Ideations Hematologic/ Lymphatic: Denies: Easy Bruising, Easy Bleeding VTE Information - Inpt Only VTE Present on Admission: No VTE Mechan Device Prophylaxis: None VTE Pharm Prophylaxis ordered?: Yes Patient Problems: Active and Suspected Problems (Last Reviewed 12/03/19 @ 15:[address] Adam Ga MD) Intractable back pain (Acute) - Physical Exam Vitals/I&O's: Vital Signs Temp Pulse Resp BP Pulse Ox 98.3 F 74 18 107/68 98 02/12/20 18:44 02/12/20 18:44 02/12/20 18:44 02/12/20 18:44 02/12/20 18:44 Oxygen Delivery Method Room Air Weight: 170 lb Body Mass Index (BMI) 28.3 General: Alert, Oriented x3, Cooperative HEENT: Atraumatic, PERRLA, EOMI, Normocephalic Neck: Supple, No JVD, Negative Carotid Bruits Lungs: Clear to auscultation, Normal air movement Cardiovascular: No murmurs, Irregular Rate Abdomen: Bowel Sounds Present, Soft, Non Tender Extremities: No edema, Capillary Refill Less than 3 Seconds Skin: No rashes, No breakdown Musculoskeletal: No Tenderness to Palpation of Joints or Extremities Neurological: Cranial nerves II-XII grossly intact Psych/Mental Status: Normal Affect, Appropriate, Alert and oriented to time, place, person, mood and affect Assessment/Plan All Active Problems (Last Reviewed 12/03/19 @ 15:[address] Adam Ga MD) Intractable back pain (Acute) H/O right nephrectomy (Acute) LANIE (acute kidney injury) (Acute) Complicated urinary tract infection (Acute) Calculus of proximal left ureter (Acute) Hydroureter on left (Acute) Hydronephrosis, left (Acute) Left ureteral calculus (Acute) Congestive heart failure (Acute) 1. Intractable back pain 2/2 lumbar compression fracture L1 secondary to mechanical fall- consult Dr. Hong, plan was for kyphoplasty today in the office however report was that PT/INR was too high to proceed. INR 1.3. Will hold anticoagulation if plan is for kyphoplasty tomorrow. Will initiate supportive care, PTOT. Continue calcium/vitD. 2. Chronic atrial fibrillation-warfarin held. Rate controlled. Continue amiodarone and metoprolol. 3. History of CAD, ischemic cardiomyopathy, systolic congestive heart failure-no acute issues at this time. AICD is in place. History of CABG x2 4. CKD stage III. Patient of Dr. Degroot. BMP in the morning. 5. History of breast cancer-in remission. 6. History of renal cell carcinoma in remission- s/p right nephrectomy 7. History of bioprosthetic mitral valve 8. History of type 2 diabetes-it appears that she is not on any antidiabetic agents. Provide calorie controlled diet. DVT prophylaxis-SCDs, trend INR, patient may be going for kyphoplasty. DC planning: Patient has not been able to ambulate without assistance. She is agreeable to consideration for penitentiary or acute rehab. This patient was seen by Valdez Leroy PA-C under the supervision of Doctor Brandan. <Adarsh Gipson - Last Filed: 02/12/20 20:16> History of Present Illness The patient is a 84 year old F presents with back pain. Back pain began about a week ago when the patient sat down and just felt pain. Patient was noted to have a lumbar compression fracture and was scheduled to have a kyphoplasty today. INR was too high at 1.3 and so the procedure was not performed. The office contacted the hospitalist directly for admission. Spoke briefly with Dr. Hong who informed me that he may not do kyphoplasty on the may not be until the following week. Patient feels that she is too weak to be on her own at home and so the patient was brought in for evaluation for possible placement. [] Past Medical History Medical History: Medical History (Last Reviewed 02/12/20 @ 20:[address] Adarsh Gipson DO) Persistent atrial fibrillation (Chronic) I48.1 Ventricular tachyarrhythmia (Chronic) I47.2 Secondary pulmonary arterial hypertension (Chronic) I27.21 Ischemic cardiomyopathy (Chronic) I25.5 Atherosclerosis of coronary artery of [place] heart without angina pectoris (Chronic) I25.10 S/P bypass [place] [address] 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 marginal branch custodial (current) use of 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 (Chronic) Z79.01 Acute on chronic systolic CHF (congestive heart failure) (Chronic) I50.23 Chronic kidney disease, stage 3 (Chronic) N18.3 Type 2 diabetes mellitus (Chronic) E11.9 History of breast cancer (Chronic) Z85.3 History of renal cell carcinoma (Chronic) Z85.528 Hypertension (Inactive) I10 Allergies erythromycin base Adverse Reaction (Verified 12/03/19 13:00) Vomiting meperidine [From Demerol] Adverse Reaction (Verified 12/03/19 13:00) Vomiting Surgical History: Surgical History (Last Reviewed 02/12/20 @ 20:[address] Adarsh Gipson DO) History of mitral valve replacement with bioprosthetic valve (Chronic) Onset Date: ~01/18/17 Z95.3 27mm [employer] Epic bioprosthesis 01/18/17 H/O coronary artery bypass surgery (Chronic) Onset Date: ~01/18/17 Z95.1 S/P bypass [place] [address] 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 marginal branch Presence of implantable cardioverter-defibrillator (ICD) (Chronic) Onset Date: ~05/10/09 Z95.810 [employer] 05/10/2009 Status post right nephrectomy (Chronic) Status post implantation of automatic cardioverter/defibrillator (AICD) (Chronic) Z95.810 History of left heart catheterization Onset Date: ~12/25/16 Z98.890 History of mitral valve replacement Z95.2 Mitral Valve Replacement with a 27mm [employer] Olegario bioprosthesis @ [facility] by Dr. Núñez History of partial mastectomy of left breast Onset Date: ~11/2003 Z98.890, Z90.12 History of total abdominal hysterectomy Z98.890, Z90.710 Hx of CABG Onset Date: ~12/2016 Z95.1 x2 ANGULO to LAD, SVG-OM; W/LAE occlusion with 35-mm Atricure Clip Hx of cholecystectomy Z98.890, Z90.49 Surgical History: - - *Family History Maternal Family History: Family History (Last Reviewed 02/12/20 @ 20:[address] Adarsh Gipson DO) Brother CAD (coronary artery disease) Paternal Family History: Family History (Last Reviewed 02/12/20 @ 20:[address] Adarsh Gipson DO) Brother CAD (coronary artery disease) Sibling Family History: Family History (Last Reviewed 02/12/20 @ 20:[address] Adarsh Gipson DO) Brother CAD (coronary artery disease) Review of Systems Constitutional: Denies: Chills, Fever HEENT: Denies: Head Aches, Sinus Congestion, Sinus Drainage Cardiovascular: Denies: Chest Pain, Chest Pressure, Light Headedness, Palpitations, Syncope Respiratory: Denies: Cough, Shortness of Breath, Shortness of breath at rest, Sputum production Gastrointestinal: Denies: Abdominal Pain, Diarrhea, Nausea, Vomiting Genitourinary: Denies: Dysuria, Hesitancy, Urgency Musculoskeletal: Reports: Back Pain, Joint Pain, Joint Tenderness Skin: Denies: Lesions, Rash, Wounds Neurological: Denies: Confusion, Focal weakness, Numbness, Tingling Psychiatric: Denies: Anxiety, Depression, Homicidal Ideations, Suicidal Ideations Hematologic/ Lymphatic: Denies: Easy Bruising, Easy Bleeding VTE Information - Inpt Only VTE Present on Admission: No VTE Mechan Device Prophylaxis: None VTE Pharm Prophylaxis ordered?: Yes - Physical Exam Vitals/I&O's: Vital Signs Temp Pulse Resp BP Pulse Ox 36.8 C 74 18 107/68 98 02/12/20 18:44 02/12/20 18:44 02/12/20 18:44 02/12/20 18:44 02/12/20 18:44 Oxygen Delivery Method Room Air Weight: 77.111 kg Body Mass Index (BMI) 28.3 General: Alert, Cooperative HEENT: Atraumatic, Normocephalic Lungs: Clear to auscultation, Normal air movement Cardiovascular: No murmurs, Irregular Rate Abdomen: Bowel Sounds Present, Soft, Non Tender Extremities: No edema, Capillary Refill Less than 3 Seconds Skin: No rashes, No breakdown Musculoskeletal: No Tenderness to Palpation of Joints or Extremities Psych/Mental Status: Normal Affect, Appropriate Current Medications Acetaminophen (Acetaminophen 325 Mg Tablet) 650 mg PO Q6H PRN PRN PRN Reason: Pain 1-10 or Fever All[facility]urinol ([facility] 100 Mg Tablet) [facility] Amiodarone HCl (Amiodarone 200 Mg Tablet) 200 mg PO DAILY [facility] Ferrous Sulfate (Ferrous Sulfate 325 Mg Tablet) [facility] Lidocaine (Lidocaine 5% Patch) 1 patch TOPICAL DAILY [facility]; Protocol Metoprolol Succinate (Metoprolol(Xl)Succ 50 Mg Tablet) 50 mg PO DAILY [facility] Morphine Sulfate (Morphine 2 Mg/Ml Syringe) 1 mg IV Q3H PRN PRN PRN Reason: Pain Score 6-10 Non-Formulary Medication (Bumetanide) 1 mg PO DAILY [facility] Non-Formulary Medication (Calcium Carbonate/Vitamin D3 [Calcium 600-Vit D3 200 Tablet]) 1 tab PO DAILY [facility] Non-Formulary Medication (Carboxymethylcellulose Sodium [Refresh Tears]) 1 drp EACH EYE TID [facility] Non-Formulary Medication (Fluorometholone) 1 drp OPHTHALMIC QHS [facility] Non-Formulary Medication (Magnesium Oxide) 400 mg PO DAILY [facility] Non-Formulary Medication (Niacin) 250 mg PO DAILY [facility] Ondansetron HCl (Ondansetron 8 Mg Tablet) 4 mg PO Q6H PRN PRN PRN Reason: NAUSEA Tamsulosin HCl (Tamsulosin Hcl 0.4 Mg Capsule) 0.4 mg PO DAILY [facility] Tramadol HCl (Tramadol 50 Mg Tablet) 50 mg PO Q6H PRN PRN PRN Reason: Pain Score 4-10 Assessment/Plan Patient seen and examined independently. Data reviewed. I agree with the above note by the physician technician assistant. 1. L1 compression fracture. Kyphoplasty not performed due to INR of 1.3. Continue to hold her warfarin and consult pain management in regards to definitive treatments. Was not provided specific timing of the kyphoplasty and certain parameters on the phone with pain management today. Check a 25-hydroxy vitamin D level. 2. Debility, failure to thrive. Due to the patient's advanced age but also the lumbar compression fracture. PT OT evaluate and treat. Discussed with patient about the process of therapy evaluation and then she did require insurance approval. They have contacted rehab but would need to have insurance approval before that can take place. 3. Chronic atrial fibrillation on warfarin. Currently held. Continue with amiodarone and metoprolol. Patient does not require any anticoagulation bridging. Resume warfarin after the procedure can be performed. OBSV E&M: [id number] Initial observation care L2
[2020-02-12 20:20] VITALS: BP 104/68; PULSE 73; RESP 18; TEMP 37.1; O2SAT 97
--- NOTE | 2020-02-12 21:04 | NURSING ---
Spoke with pts daughter Lori about Fluorometholone opth solution per clarify order. She states pt is no longer taking.
[2020-02-12] MEDS: traMADol 50 MG Tablet PO (22:31)
[2020-02-12] MEDS: Glycerin/Hypromellose/PEG400 15 ml Bottle 1 DRP EACH EYE (22:31)
[2020-02-12 22:45] LABS: Bedside Glucose 136 mg/dL (70-110)
[2020-02-13 03:03] VITALS: BP 125/69; PULSE 87; RESP 18; TEMP 37.2; O2SAT 93
[2020-02-13 07:31] LABS: Absolute Lymphocyte Count 0.49 X10^3/uL (0.83-4.51); Absolute Neutrophil Count 5.8 X10^3/uL (2.0-7.7); Basophil# 0.02 X10^3/uL; Basophil% 0.3 % (0-1); Eosinophil# 0.03 X10^3/uL; Eosinophils% 0.4 % (0-5); Hematocrit 36.3 % (37-47); Hemoglobin 11.2 g/dL (12.0-15.0); Lymphocyte # 0.49 X10^3/ul (4.0); Mean Corp Hgb Conc 30.9 g/dL (32-36); Mean Corpuscular Hgb 27.7 pg (27.0-32.0); Mean Corpuscular Volume 89.9 fL (81-99); Mean Platelet Vol. 10.1 fl (6.2-12.0); Monocyte# 0.63 X10^3/uL; NRBC Flagged by Analyzer 0 % (0-5); Neutrophil # 5.79 X10^3/uL (2.7-7.7); Neutrophil % 82.7 % (47-70); POSITIVE DIFFERENTIAL YES; Platelet Count 106 K/mm3 (150-450); RBC Distribution Width CV 16.1 % (11.6-14.6); RBC Distribution Width SD 53.5 fl (35.1-43.9); Red Blood Count 4.04 M/mm3 (4.2-5.4)
[2020-02-13 07:37] LABS: Anion Gap 8 (5-15); BUN 57 mg/dL (7-18); BUN/Creat Ratio 30.3 RATIO (10-20); Calcium,Total 8.9 mg/dL (8.5-10.1); Chloride 103 mmol/L (98-107); Creatinine, Serum 1.88 mg/dL (0.55-1.02); EST Glomerular Filtration Rate 27 mL/min (>60); Est Glom Filt Rate - Afr Amer 33 mL/min (>60); Estimated Creatinine Clearance 20.04 ml/min; Glucose 107 mg/dL (74-106); Potassium 3.5 mmol/L (3.5-5.1); Sodium Level 139 mmol/L (136-145)
[2020-02-13 07:50] LABS: Differential Indicated SCAN CRITERIA MET
[2020-02-13 08:17] LABS: International Normalized Ratio 1.3; Prothrombin Time (Protime)PT. 15.5 SECONDS (11.7-14.9)
[2020-02-13 09:03] VITALS: BP 96/53; PULSE 75; RESP 18; TEMP 37.2; O2SAT 97
[2020-02-13 09:09] LABS: Vitamin D,25 Hydroxy 39.2 ng/mL
[2020-02-13] MEDS: Lidocaine 5% Patch 2 PATCH TOPICAL (09:22)
[2020-02-13] MEDS: Amiodarone 200 MG Tablet PO (09:23)
[2020-02-13] MEDS: Allopurinol 100 MG Tablet PO (09:23)
[2020-02-13] MEDS: Magnesium Chloride 64 MG Delay Rel.Tablet 128 MG PO (09:23)
[2020-02-13] MEDS: Tamsulosin HCl 0.4 MG Capsule PO (09:23)
[2020-02-13] MEDS: Gabapentin 100 MG Capsule PO ×2 (09:24→17:43)
[2020-02-13] MEDS: Calcium Carb/Vitamin D 1 TABLET Tablet PO (09:24)
[2020-02-13] MEDS: Ferrous Sulfate 325 MG Tablet PO (09:24)
[2020-02-13 09:25] VITALS: PULSE 75
[2020-02-13] MEDS: Metoprolol(XL)Succ 50 MG Tablet PO (09:25)
--- NOTE | 2020-02-13 11:41 | CASEMGMT ---
Social Work Note SW received call from Carrie in TCU stating Dr. Hong had called TCU and requested pt admit to TCU for rehabilitation. Social Work Assessment: SW met with pt to complete initial assessment. SW introduced self and role at [facility]. Pt is alert and orientated x3. Living Arrangements: Pt states that she lives at independent living at [facility]. Pt states that she lives alone. Pt states it is first floor set up. Pt states there are no steps to enter, she has a ramp. Pt states her home is handicapped accessible. ADLs: Pt states before she fell and broke her back, pt was independent with ADLs. Pt states she fell first Sunday in January and that is when she broke her back. Pt states she was playing cards 5x a week before COVID hit. DME: Pt states she has 2 walkers and wheelchair, shower seats, bars. PCP: Dr. Rios Pharmacy: Pt states she currently uses [facility] but will be switching to [facility] so her daughter is able to drive through and pecan picker her medications. Specialists: Dr. Hong, Dr. Degroot, Dr. Ga Insurance: Medicare, [employer] Substance Abuse Hx: Pt denied Mental Health Hx: Pt states not really. Pt states she will sometimes get anxiety and has Xanax prescribed through Dr. Rios that she will sometimes take. HHC: [facility] HHC SNF: [facility], [address] [facility] [address] LORENA spoke with pt regarding recommendation of SNF at discharge. LORENA provided pt with list of SNF that accept pt's insurance. Pt agreeable to [facility] TCU. PA updated, COVID test will need to be ordered. LORENA placed a call to Carrie in TCU and updated her pt is agreeable to TCU, may be discharged today or tomorrow to TCU. Carrie states understanding. Plan: TCU once medically cleared Lauren Vitale MARINE PLUMBER, PSYCH THERAPIST
[2020-02-13] MEDS: Acetaminophen 325 MG Tablet 650 MG PO (12:10)
[2020-02-13] MEDS: Bumetanide 2 MG Tablet 1 MG PO (12:12)
--- NOTE | 2020-02-13 14:57 | PCM.EXTCARCO ---
- Diet 02/13/20 08:20 Diet: Regular - General Is pt able to select menu?: Yes - Routine Orders/Code Status Suppository Type: Dulcolax 10mg Suppository Frequency: Daily PRN Routine Lab Work: CBC - 5 days, BMP - 5 days, INR - daily Code Status: Full Code - Therapies Physical Therapy: Eval and Treat Occupational Therapy: Eval and Treat - Problem/Diagnosis (1) Intractable back pain Status: Acute (2) Debility Status: Chronic (3) CAD (coronary artery disease) Status: Chronic (4) Systolic CHF Status: Chronic (5) Atrial fibrillation, chronic Status: Chronic (6) History of mitral valve replacement with bioprosthetic valve Status: Chronic Comment: 27mm [employer] Epic bioprosthesis 01/18/17 (7) Essential hypertension Status: Chronic (8) Ventricular tachyarrhythmia Status: Chronic (9) H/O coronary artery bypass surgery Status: Chronic Comment: S/P bypass [place] [address] 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 marginal branch (10) Presence of implantable cardioverter-defibrillator (ICD) Status: Chronic Comment: [employer] 05/10/2009 (11) Secondary pulmonary arterial hypertension Status: Chronic (12) Ischemic cardiomyopathy Status: Chronic (13) Chronic kidney disease, stage 3 Status: Chronic (14) Type 2 diabetes mellitus Status: Chronic (15) Status post right nephrectomy Status: Chronic (16) Status post implantation of automatic cardioverter/defibrillator (AICD) Status: Chronic (17) History of breast cancer Status: Chronic (18) History of renal cell carcinoma Status: Chronic - Allergies/Procedures Done in Hospital Allergies/Adverse Reactions: Allergies erythromycin base Adverse Reaction (Verified 12/03/19 13:00) Vomiting meperidine [From Demerol] Adverse Reaction (Verified 12/03/19 13:00) Vomiting Procedures: None - Type of Care/Length of Stay Estimated LOS: Convalescent Care Less Than 30 days Type of Care Needed: Skilled Rehab Potential: Fair Prognosis: Fair - Additional Orders/Day of Discharge Day of Discharge: 02/13/20 - Follow Up Care Primary Care Physician: Gilberto Rios MD [Primary Care Provider] - Please follow up with your Primary Care Physician in: 2 weeks Please Follow Up With: Isrrael Hong MD When: 3 days
--- NOTE | 2020-02-13 14:58 | PCM.DC.SUM ---
Discharge Date and Diagnosis - Problem List Patient Problems: Active and Suspected Problems (Last Reviewed 02/12/20 @ 20:[address] Adarsh Gipson DO) Intractable back pain (Acute) Date of Admission: 02/12/20 Date of Discharge: 02/13/20 - Primary Discharge Diagnosis Acute Problems: Active Problems (Last Reviewed 02/12/20 @ 20:[address] Adarsh Gipson DO) Intractable back pain (Acute) 2/2 lumbar compression fracture Debility 2/2 above - Secondary Discharge Diagnosis Chronic Problems: Chronic Problems (Last Reviewed 02/12/20 @ 20:[address] Adarsh Gipson DO) Debility (Chronic) CAD (coronary artery disease) (Chronic) Systolic CHF (Chronic) Atrial fibrillation, chronic (Chronic) Paroxysmal atrial fibrillation (Chronic) Persistent atrial fibrillation (Chronic) History of mitral valve replacement with bioprosthetic valve (Chronic ~01/18/17) 27mm [place] [facility] bioprosthesis 01/18/17 Essential hypertension (Chronic) Ventricular tachyarrhythmia (Chronic) H/O coronary artery bypass surgery (Chronic ~01/18/17) S/P bypass surgery [place] [address] 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 marginal branch Presence of implantable cardioverter-defibrillator (ICD) (Chronic ~05/10/09) [employer] 05/10/2009 Secondary pulmonary arterial hypertension (Chronic) Ischemic cardiomyopathy (Chronic) Atherosclerosis of coronary artery of [place] heart without angina pectoris (Chronic) S/P bypass surgery [place] [address] 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 The patient had a fall into the sitting position approximately 10 days prior to presentation. She sustained a L1 compression fracture. Dr. Hong had planned to do a kyphoplasty in the office on the day of presentation. Unfortunately her INR was not appropriate at that time and she was admitted to the hospital as she could not safely take care of herself at home any longer could not walk on her own. Patient was admitted to the medical surgical floor. Dr. Gaytan wanted the patient bridged from her warfarin until she can have the procedure done. He discussed this with the automotive services manager, and I confirmed with the automotive services manager myself that the patient will not need bridged for this procedure. She will remain off of warfarin until she has her kyphoplasty which will likely be Sunday or Sunday in the office with Dr. Hong. As the patient has significant debility and difficulty ambulating, not safe to take care of herself on her own, care home was advised. She was discharged to the TCU in stable condition. Follow-up with PCP in 2 weeks, follow-up with Dr. Horne next week for kyphoplasty. This patient was seen by Valdez Leroy PA-C under the supervision of Doctor Erika. [] Patient Problems: Active and Suspected Problems (Last Reviewed 02/12/20 @ 20:[address] Adarsh Gipson, DO) Intractable back pain (Acute) - Physical Exam Vitals/I&O's: Vital Signs Temp Pulse Resp BP Pulse Ox 98.9 F 75 18 96/53 L 97 02/13/20 09:03 02/13/20 09:25 02/13/20 09:03 02/13/20 09:03 02/13/20 09:03 Oxygen Delivery Method Room Air Weight: 170 lb Body Mass Index (BMI) 28.3 Intake and Output for Last 24 Hours 02/11/20 02/12/20 02/13/20 23:59 23:59 23:59 Intake Total 1050 / 1050 Balance 1050 / 1050 General: Alert, Oriented x3, Cooperative HEENT: Atraumatic, PERRLA, EOMI, Normocephalic Neck: Supple, No JVD, Negative Carotid Bruits Lungs: Clear to auscultation, Normal air movement Cardiovascular: Regular rate, No murmurs Abdomen: Bowel Sounds Present, Soft, Non Tender Extremities: No edema, Capillary Refill Less than 3 Seconds Skin: No rashes, No breakdown Musculoskeletal: No Tenderness to Palpation of Joints or Extremities Neurological: Cranial nerves II-XII grossly intact Psych/Mental Status: Normal Affect, Appropriate, Alert and oriented to time, place, person, mood and affect Laboratory Results 02/12/20 22:31: POC Glucose 136 H 02/13/20 07:04: WBC 7.0, RBC 4.04 L, Hgb 11.2 L, Hct 36.3 L, MCV 89.9, MCH 27.7, MCHC 30.9 L, RDW Std Deviation 53.5 H, RDW Coeff of [place] 16.1 H, Plt Count 106 L, MPV 10.1, Immature Gran % (Auto) 0.600, Neut % (Auto) 82.7 H, Lymph % (Auto) 7.0 L, Garza % (Auto) 9.0, Eos % (Auto) 0.4, Baso % (Auto) 0.3, Absolute Neuts (auto) 5.8, Absolute Lymphs (auto) 0.49 L, Nucleated RBC % 0, Differential Comment COMMENT 02/13/20 07:04: Sodium 139, Potassium 3.5, Chloride 103, Carbon Dioxide 28.0, Anion Gap 8, BUN 57 H, Creatinine 1.88 H, Estim Creat Clear Calc 20.04, Est GFR (MDRD) Af Amer 33 L, Est GFR (MDRD) Non-Af 27 L, BUN/Creatinine Ratio 30.3 H, Glucose 107 H, Calcium 8.9 02/13/20 07:04: PT 15.5 H, INR 1.3 02/13/20 07:04: Vitamin D 25-Hydroxy 39.2 Current Medications Acetaminophen (Acetaminophen 325 Mg Tablet) 650 mg PO Q6H PRN PRN PRN Reason: Pain 1-10 or Fever Last Admin: 02/13/20 12:10 Dose: 650 mg Documented by: Al Hydroxide/Mg Hydroxide (Mag Hydrox/Al Hydrox/Simeth 30 Ml Udc) 30 ml PO Q6H PRN PRN PRN Reason: Gastric Burning Allopurinol (Allopurinol 100 Mg Tablet) 100 mg PO DAILYCM JEANA Last Admin: 02/13/20 09:23 Dose: 100 mg Documented by: Alprazolam (Alprazolam 0.5 Mg Tablet) 0.5 mg PO QHS PRN PRN Reason: ANXIETY Amiodarone HCl (Amiodarone 200 Mg Tablet) 200 mg PO DAILY [facility] Last Admin: 02/13/20 09:23 Dose: 200 mg Documented by: Bisacodyl (Bisacodyl 5 Mg Tablet) 10 mg PO DAILY PRN PRN PRN Reason: Constipation Bumetanide (Bumetanide 2 Mg Tablet) 1 mg PO DAILY [facility] Last Admin: 02/13/20 12:12 Dose: 1 mg Documented by: Calcium/Vitamin D (Calcium Carb/Vitamin D 1 Tablet Tablet) [facility] Last Admin: 02/13/20 09:24 Dose: 1 tablet Documented by: Docusate Sodium (Docusate Sodium 100 Mg Capsule) 200 mg PO BID PRN PRN PRN Reason: Constipation Ferrous Sulfate (Ferrous Sulfate 325 Mg Tablet) [facility] Last Admin: 02/13/20 09:24 Dose: 325 mg Documented by: Gabapentin (Gabapentin 100 Mg Capsule) [facility] Last Admin: 02/13/20 09:24 Dose: 100 mg Documented by: Sodium Chloride () 250 mls @ 15 mls/hr IV .[id number] PRN PRN Reason: Saline Flush Lidocaine (Lidocaine 5% Patch) 2 patch TOPICAL DAILY [facility]; Protocol Last Admin: 02/13/20 09:22 Dose: 2 patch Documented by: Magnesium Chloride (Magnesium Chloride 64 Mg Delay Rel.Tablet) 128 mg PO DAILY [facility] Last Admin: 02/13/20 09:23 Dose: 128 mg Documented by: Metoprolol Succinate (Metoprolol(Xl)Succ 50 Mg Tablet) 50 mg PO DAILY [facility] Last Admin: 02/13/20 09:25 Dose: 50 mg Documented by: Morphine Sulfate (Morphine 2 Mg/Ml Syringe) 1 - 2 mg IV Q4H PRN PRN PRN Reason: Pain Score 4-5 Morphine Sulfate (Morphine 2 Mg/Ml Syringe) 2 - 4 mg IV Q3H PRN PRN PRN Reason: Pain Score 6-10 Morphine Sulfate (Morphine 4 Mg/Ml Syringe) 2 - 4 mg IV Q3H PRN PRN PRN Reason: Pain Score 6-10 Ondansetron HCl (Ondansetron Odt 4 Mg Tablet) 4 mg PO Q6H PRN PRN PRN Reason: NAUSEA Ondansetron HCl (Ondansetron 4 Mg/2 Ml Vial) 4 mg IV Q8H PRN PRN PRN Reason: Nausea Oxycodone HCl (Oxycodone 5 Mg Tablet) 5 mg PO Q4H PRN PRN PRN Reason: Pain Score 4-5 Polyethylene Glycol (Polyethylene Glycol 3350 17 Gm Packet) 17 gm PO DAILY [facility] Last Admin: 02/13/20 12:23 Dose: Not Given Documented by: Prochlorperazine Edisylate (Prochlorperazine 10 Mg/2 Ml Vial) 10 mg IV Q6H PRN PRN PRN Reason: Nausea/Vomiting Sodium Chloride (0.9% Saline Lock 10 Ml Syringe) 10 - 40 ml IV UD PRN PRN Reason: SALINE FLUSH Tamsulosin HCl (Tamsulosin Hcl 0.4 Mg Capsule) 0.4 mg PO DAILY@0830 [facility] Last Admin: 02/13/20 09:23 Dose: 0.4 mg Documented by: Tramadol HCl (Tramadol 50 Mg Tablet) 50 mg PO Q12H PRN PRN PRN Reason: Pain Score 4-10 Last Admin: 02/12/20 22:31 Dose: 50 mg Documented by: Discharge Diet: Low fat/ Low Cholesterol, 2000 mg Sodium Diet Discharge Activity: Return to Normal Activity Home Medications: Medications to take at Discharge Niacin 250 mg PO DAILY 12/23/16 amiodarone 200 mg tablet 200 mg PO DAILY 90 Days #90 tab 04/19/17 C,E,Zinc,Copper 11/Hhsxm8m/Lut [Ocuvite Adult 50 Plus Softgel] 1 tab PO DAILY 11/05/17 Calcium Carbonate/Vitamin D3 [Calcium 600-Vit D3 200 Tablet] 1 tab PO DAILY 11/05/17 Carboxymethylcellulose Sodium [Refresh Tears] 1 drp EACH EYE TID 11/05/17 Ferrous Sulfate [Iron] 325 mg PO DAILY 11/05/17 Allopurinol 100 mg PO DAILY 06/14/18 Tamsulosin HCl [Flomax] 0.4 mg PO DAILY #30 cap 06/15/18 bumetanide 1 mg tablet 1 mg PO DAILY 11/27/18 magnesium oxide 400 mg (241.3 mg magnesium) tablet 400 mg PO DAILY #90 tab 07/30/19 fluorometholone 0.1 % eye drops,suspension 1 drp OPHTHALMIC QHS ml 12/03/19 metolazone 2.5 mg tablet 2.5 mg PO .COMPLEX PRN tab 12/03/19 metoprolol succinate 50 mg tablet,extended release 24 hr 50 mg PO DAILY #90 tab 12/03/19 Alprazolam [Xanax] 0.5 mg PO QHS PRN 02/12/20 Acetaminophen [Tylenol Tablet] 650 mg PO Q6H PRN PRN tab 02/13/20 Bisacodyl [Dulcolax] 10 mg PO DAILY PRN PRN tab 02/13/20 Docusate Sodium [Colace] 200 mg PO BID PRN PRN cap 02/13/20 Gabapentin [Neurontin] 100 mg PO BIDCM cap 02/13/20 Lidocaine [Lidoderm Patch] 2 patch TOPICAL DAILY patch 02/13/20 Mag Hydrox/Al Hydrox/Simeth [Mylanta II] 30 ml PO Q6H PRN PRN udc 02/13/20 Polyethylene Glycol 3350 [Miralax] 17 gm PO DAILY packet 02/13/20 traMADol [Ultram] 50 mg PO Q6H PRN PRN 3 Days #18 tab 02/13/20 Following Prescriptions Were Given to Patient: traMADol [Ultram] 50 mg PO Q6H PRN PRN 3 Days #18 tab PRN Reason: Pain Score 4-10 Prescription Printed Primary Care Physician: Gilberto Rios MD [Primary Care Provider] - Please follow up with your Primary Care Physician in: 2 weeks Please Follow Up With: Isrrael Hong MD When: 3 days Disposition: Longterm facility Minutes spent on discharge:: 35 Patient Condition:: Stable Medical Necessity - Tobacco Use Smoking Status: Never smoker Tobacco Use: Non-smoker Meaningful Use Info Meaningful Use Diagnoses (Choose all that apply): None applicable
--- NOTE | 2020-02-13 16:00 | CASEMGMT ---
Social Work Note Pt is going to discharge to TCU today. SW placed a call to Carrie in TCU and left message that pt will be discharged to TCU today. Pt will need COVID test. Plan: TCU today once pt's COVID test comes back negative. Lauren Vitale SENIOR SCHEDULER, [employer]/WOMAN
[2020-02-13 17:19] LABS: Probe Check PASS; Specimen Processing Control PASS
[2020-02-13 18:13] VITALS: BP 98/57; PULSE 74; RESP 18; TEMP 37.2; O2SAT 98
== END 2020-02-13 18:00 | disposition skilled nursing facility (03) ==
PROVIDERS: Physician Assistant; PCP Family Medicine; Visit Provider Family Medicine
DX: M48.56XA Collapsed vertebra, not elsewhere classified, lumbar region, initial encounter for fracture (principal); I25.10 Atherosclerotic heart disease of native coronary artery without angina pectoris; I13.0 Hypertensive heart and chronic kidney disease with heart failure and stage 1 through stage 4 chronic kidney disease, or unspecified chronic kidney disease; I50.23 Acute on chronic systolic (congestive) heart failure; F41.9 Anxiety disorder, unspecified; I48.0 Paroxysmal atrial fibrillation; I27.21 Secondary pulmonary arterial hypertension; I25.5 Ischemic cardiomyopathy; E11.22 Type 2 diabetes mellitus with diabetic chronic kidney disease; N18.30 Chronic kidney disease, stage 3 unspecified; Z95.810 Presence of automatic (implantable) cardiac defibrillator; Z85.3 Personal history of malignant neoplasm of breast; Z85.528 Personal history of other malignant neoplasm of kidney; Z95.3 Presence of xenogenic heart valve; Z95.1 Presence of aortocoronary bypass graft; Z79.899 Other long term (current) drug therapy; Z79.01 Long term (current) use of 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
CPT/HCPCS: 36415; 80048; 82306; 82962; 85025; 85610; 87635; 97162; 97166; 99218; G0378; G0379; U0002

== ENCOUNTER 2020-02-13 18:45 | Inpatient (IN) | payer MEDICARE, OTHER, SELFPAY ==
[2020-02-12 18:37] VITALS: BMI 28.3
--- NOTE | 2020-02-13 19:44 | HP.PCM_ITS ---
Problem List (1) Compression fracture of L1 lumbar vertebra Status: Acute (2) Iron deficiency anemia Status: Chronic (3) Gout Status: Chronic (4) Urinary retention Status: Acute (5) Hypomagnesemia Status: Chronic (6) Atrial fibrillation Status: Chronic (7) Hypertension Status: Chronic (8) Pulmonary hypertension Status: Chronic (9) Chronic kidney disease Status: Chronic (10) Diabetes mellitus Status: Chronic (11) Breast cancer Status: Chronic (12) Renal cell cancer Status: Chronic (13) Intractable back pain Status: Acute (14) Debility Status: Acute (15) CAD (coronary artery disease) Status: Chronic (16) Systolic CHF Status: Chronic History of Present Illness Date of Admission: 02/13/20 Chief Complaint: Here for rehabilitation, strengthening, prior to discharge home alone. The patient is a 84 year old Female with below past medical history with followin01/28/20 X-ray LS spine showed increased wedging L1, 40% wedge insufficiency fracture, persistent calcific atherosclerosis. 02/12/20 Admit to [facility]. Presented to [facility] from pain management office. Was going to have L1 kyphoplasty but cancelled due to supratherapeutic INR. Recent fall onto buttock causing L1 compression fracture. Worsening back pain, unable to walk or stand. Hold coumadin, plan L1 kyphoplasty. 02/13/20 Admit to TCU with debility, here for rehabilitation, strengthening, prior to L1 kyphoplasty. Past Medical History Past Medical History (Chronic Problems): Chronic Problems (Last Reviewed 02/12/20 @ 20:[address] Adarsh Gipson, DO) CAD (coronary artery disease) (Chronic) Systolic CHF (Chronic) Iron deficiency anemia (Chronic) Gout (Chronic) Hypomagnesemia (Chronic) Atrial fibrillation (Chronic) Hypertension (Chronic) Pulmonary hypertension (Chronic) Chronic kidney disease (Chronic) Diabetes mellitus (Chronic) Breast cancer (Chronic) Renal cell cancer (Chronic) Atrial fibrillation, chronic (Chronic) Paroxysmal atrial fibrillation (Chronic) Persistent atrial fibrillation (Chronic) History of mitral valve replacement with bioprosthetic valve (Chronic ~01/18/17) 27mm [employer] Epic bioprosthesis 01/18/17 Essential hypertension (Chronic) Ventricular tachyarrhythmia (Chronic) H/O coronary artery bypass surgery (Chronic ~01/18/17) S/P bypass [place] [address] 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 marginal branch Presence of implantable cardioverter-defibrillator (ICD) (Chronic ~05/10/09) [employer] 05/10/2009 Secondary pulmonary arterial hypertension (Chronic) Ischemic cardiomyopathy (Chronic) Atherosclerosis of coronary artery of [place] heart without angina pectoris (Chronic) S/P bypass [place] [address] 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 marginal branch long-term (current) use of 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 (Chronic) Acute on chronic systolic CHF (congestive heart failure) (Chronic) Chronic kidney disease, stage 3 (Chronic) Type 2 diabetes mellitus (Chronic) Status post right nephrectomy (Chronic) Status post implantation of automatic cardioverter/defibrillator (AICD) (Chronic) History of breast cancer (Chronic) History of renal cell carcinoma (Chronic) Medical History: Medical History (Last Reviewed 02/12/20 @ 20:[address] Adarsh Gipson, DO) Persistent atrial fibrillation (Chronic) I48.1 Ventricular tachyarrhythmia (Chronic) I47.2 Secondary pulmonary arterial hypertension (Chronic) I27.21 Ischemic cardiomyopathy (Chronic) I25.5 Atherosclerosis of coronary artery of [place] heart without angina pectoris (Chronic) I25.10 S/P bypass [place] [address] 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 marginal branch long-term (current) use of 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 (Chronic) Z79.01 Acute on chronic systolic CHF (congestive heart failure) (Chronic) I50.23 Chronic kidney disease, stage 3 (Chronic) N18.3 Type 2 diabetes mellitus (Chronic) E11.9 History of breast cancer (Chronic) Z85.3 History of renal cell carcinoma (Chronic) Z85.528 Hypertension (Inactive) I10 Allergies erythromycin base Adverse Reaction (Verified 12/03/19 13:00) Vomiting meperidine [From Demerol] Adverse Reaction (Verified 12/03/19 13:00) Vomiting Home Medications: Ambulatory Orders Medication Instructions Recorded Niacin 250 mg PO DAILY 12/23/16 amiodarone 200 mg tablet 200 mg PO DAILY 90 Days #90 tab 04/19/17 C,E,Zinc,Copper 11/Dkjwc7n/Lut 1 tab PO DAILY 11/05/17 [Ocuvite Adult 50 Plus Softgel] Calcium Carbonate/Vitamin D3 1 tab PO DAILY 11/05/17 [Calcium 600-Vit D3 200 Tablet] Carboxymethylcellulose Sodium 1 drp EACH EYE TID 11/05/17 [Refresh Tears] Ferrous Sulfate [Iron] 325 mg PO DAILY 11/05/17 Allopurinol 100 mg PO DAILY 06/14/18 bumetanide 1 mg tablet 1 mg PO DAILY 11/27/18 magnesium oxide 400 mg (241.3 mg 400 mg PO DAILY #90 tab 07/30/19 magnesium) tablet fluorometholone 0.1 % eye 1 drp OPHTHALMIC QHS ml 12/03/19 drops,suspension metolazone 2.5 mg tablet 2.5 mg PO .COMPLEX PRN tab 12/03/19 Alprazolam [Xanax] 0.5 mg PO QHS PRN 02/12/20 Acetaminophen [Tylenol Tablet] 650 mg PO Q6H PRN PRN tab 02/13/20 Bisacodyl [Dulcolax] 10 mg PO DAILY PRN PRN tab 02/13/20 Docusate Sodium [Colace] 200 mg PO BID PRN PRN cap 02/13/20 Gabapentin [Neurontin] 100 mg PO BIDCM 02/13/20 Lidocaine [Lidoderm Patch] 2 patch TOPICAL DAILY 02/13/20 Mag Hydrox/Al Hydrox/Simeth 30 ml PO Q6H PRN PRN udc 02/13/20 [Mylanta II] Metoprolol Succinate 50 mg PO DAILY 02/13/20 Polyethylene Glycol 3350 [Miralax] 17 gm PO DAILY 02/13/20 Tamsulosin HCl [Flomax] 0.4 mg PO DAILY 02/13/20 traMADol [Ultram] 50 mg PO Q6H PRN PRN 3 Days #18 tab 02/13/20 Surgical History: Surgical History (Last Reviewed 02/12/20 @ 20:[address] Adarsh Gipson, DO) History of mitral valve replacement with bioprosthetic valve (Chronic) Onset Date: ~01/18/17 Z95.3 27mm [employer] Epic bioprosthesis 01/18/17 H/O coronary artery bypass surgery (Chronic) Onset Date: ~01/18/17 Z95.1 S/P bypass [place] [address] 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 marginal branch Presence of implantable cardioverter-defibrillator (ICD) (Chronic) Onset Date: ~05/10/09 Z95.810 [employer] 05/10/2009 Status post right nephrectomy (Chronic) Status post implantation of automatic cardioverter/defibrillator (AICD) (Chronic) Z95.810 History of left heart catheterization Onset Date: ~12/25/16 Z98.890 History of mitral valve replacement Z95.2 Mitral Valve Replacement with a 27mm [employer] bioprosthesis @ [facility] by Dr. Núñez History of partial mastectomy of left breast Onset Date: ~11/2003 Z98.890, Z90.12 History of total abdominal hysterectomy Z98.890, Z90.710 Hx of CABG Onset Date: ~12/2016 Z95.1 x2 ANGULO to LAD, SVG-OM; W/LAE occlusion with 35-mm Atricure Clip Hx of cholecystectomy Z98.890, Z90.49 Surgical History: appendectomy, cholecystectomy, coronary bypass surgery, hysterectomy, mastectomy, tonsillectomy, - - Mitral Valve replacement, defibrillator placement, Right nephrectomy. Psychiatric History: Anxiety [employer]IM[employer] History: No pertinent [employer] history Lives: Alone Smoking Status: Never smoker Tobacco Use: Non-smoker Alcohol: None Drugs: None - *Family History Maternal Family History: Family History (Last Reviewed 02/12/20 @ 20:[address] Adarsh Gipson DO) Brother CAD (coronary artery disease) History Items: Unknown - Patient states she does not know her maternal family history but believes she was healthy. Paternal Family History: Family History (Last Reviewed 02/12/20 @ 20:[address] Adarsh Gipson DO) Brother CAD (coronary artery disease) History Items: Unknown - Patient states she does not know her paternal family history but notes he was healthy. Sibling Family History: Family History (Last Reviewed 02/12/20 @ 20:[address] Adarsh Gipson DO) Brother CAD (coronary artery disease) History Items: Heart Disease Review of Systems Constitutional: Denies: Chills, Fever, Weight Change HEENT: Denies: Head Aches, Sinus Congestion, Sinus Drainage Cardiovascular: Denies: Chest Pain, Palpitations Respiratory: Denies: Cough, Shortness of breath at rest, Sputum production Gastrointestinal: Denies: Abdominal Pain, Nausea, Vomiting Genitourinary: Denies: Dysuria Musculoskeletal: Denies: Joint Pain, Joint Tenderness Skin: Denies: Rash, Wounds Neurological: Denies: Numbness, Tingling, Focal weakness Psychiatric: Denies: Anxiety, Depression, Homicidal Ideations, Suicidal Ideations Hematologic/ Lymphatic: Denies: Easy Bruising, Easy Bleeding VTE Information - Inpt Only VTE Present on Admission: No VTE Mechan Device Prophylaxis: Knee High GALINA Hose VTE Pharm Prophylaxis ordered?: No Reason prophylaxis not ordered:: Treatment Not Indicated Patient Problems: Active and Suspected Problems (Last Reviewed 02/12/20 @ 20:[address] Adarsh Gipson, DO) Intractable back pain (Acute) Debility (Acute) Compression fracture of L1 lumbar vertebra (Acute) Urinary retention (Acute) - Physical Exam Vitals/I&O's: Body Mass Index (BMI) 28.3 General: Alert, Oriented x3, Cooperative HEENT: Atraumatic, PERRLA, EOMI, Normocephalic Neck: Supple, No JVD, Negative Carotid Bruits Lungs: Clear to auscultation, Normal air movement Cardiovascular: Regular rate, No murmurs Abdomen: Bowel Sounds Present, Soft, Non Tender Extremities: No edema, Capillary Refill Less than 3 Seconds Skin: No rashes, No breakdown Musculoskeletal: No Tenderness to Palpation of Joints or Extremities Neurological: Cranial nerves II-XII grossly intact Psych/Mental Status: Normal Affect, Appropriate Current Medications Acetaminophen (Acetaminophen 325 Mg Tablet) 650 mg PO Q6H PRN PRN PRN Reason: Pain 1-10 or Fever Al Hydroxide/Mg Hydroxide (Mag Hydrox/Al Hydrox/Simeth 30 Ml Udc) 30 ml PO Q6H PRN PRN PRN Reason: Gastric Burning Allopurinol (Allopurinol 100 Mg Tablet) 100 mg PO DAILY JEANA Alprazolam (Alprazolam 0.5 Mg Tablet) 0.5 mg PO QHS PRN PRN Reason: ANXIETY Amiodarone HCl (Amiodarone 200 Mg Tablet) 200 mg PO DAILY JEANA Bisacodyl (Bisacodyl 5 Mg Tablet) 10 mg PO DAILY PRN PRN PRN Reason: Constipation Docusate Sodium (Docusate Sodium 100 Mg Capsule) 200 mg PO BID PRN PRN PRN Reason: Constipation Ferrous Sulfate (Ferrous Sulfate 325 Mg Tablet) 325 mg PO DAILY JEANA Gabapentin (Gabapentin 100 Mg Capsule) 100 mg PO BIDCM [facility] Lidocaine (Lidocaine 5% Patch) 2 patch TOPICAL DAILY JEANA; Protocol Metolazone (Metolazone 2.5 Mg Tablet) 2.5 mg PO .COMPLEX PRN PRN Reason: Swelling Metoprolol Succinate (Metoprolol(Xl)Succ 50 Mg Tablet) 50 mg PO DAILY [facility] Non-Formulary Medication (Bumetanide) 1 mg PO DAILY JEANA Non-Formulary Medication (C,E,Zinc,Copper 11/Jwkgo5d/Lut [Ocuvite Adult 50 Plus Softgel]) 1 tab PO DAILY [facility]NA Non-Formulary Medication (Calcium Carbonate/Vitamin D3 [Calcium 600-Vit D3 200 Tablet]) 1 tab PO DAILY [facility]NA Non-Formulary Medication (Carboxymethylcellulose Sodium [Refresh Tears]) 1 drp EACH EYE TID [facility]EANA Non-Formulary Medication (Fluorometholone) 1 drp OPHTHALMIC QHS [facility] Non-Formulary Medication (Magnesium Oxide) 400 mg PO DAILY [facility] Non-Formulary Medication (Niacin) 250 mg PO DAILY [facility] Polyethylene Glycol (Polyethylene Glycol 3350 17 Gm Packet) 17 gm PO DAILY [facility] Tamsulosin HCl (Tamsulosin Hcl 0.4 Mg Capsule) 0.4 mg PO DAILY JEANA Tramadol HCl (Tramadol 50 Mg Tablet) 50 mg PO Q6H PRN PRN PRN Reason: Pain Score 4-10 Tuberculin PPD (Tuberculin,Purif.Prot.Deriv. 50 Tu/Ml Vial) 5 tu ID [id number] ONE Stop: 02/14/20 10:01 Tuberculin PPD (Tuberculin,Purif.Prot.Deriv. 50 Tu/Ml Vial) 5 tu ID [id number] ONE Stop: 02/21/20 10:01 Assessment/Plan All Active Problems (Last Reviewed 02/12/20 @ 20:[address] Adarsh Gipson, DO) Intractable back pain (Acute) Debility (Acute) Compression fracture of L1 lumbar vertebra (Acute) Urinary retention (Acute) H/O right nephrectomy (Acute) LANIE (acute kidney injury) (Acute) Complicated urinary tract infection (Acute) Calculus of proximal left ureter (Acute) Hydroureter on left (Acute) Hydronephrosis, left (Acute) Left ureteral calculus (Acute) Congestive heart failure (Acute) 84 year old female with below past medical history hospitalized for intractable back pain secondary to L1 compression fracture, admitted to TCU with debility, here for rehabilitation, strengthening, prior to discharge home alone. * Debility - PT/OT. * Pain - Tylenol 1000MG Q6H PRN pain (1-3), Tramadol 50MG Q6H PRN pain (4-5), Oxycodone 5MG Q4H PRN pain (6-10), Lidoderm 2 patches daily. * Bowel - Miralax 17GM daily, Senna/colace 2 tablets BID, MOM 30ML daily PRN, Dulcolax 10MG NM daily PRN. * Adult immunization - Administer Prevnar 13, Pneumovax 23, Fluzone as appropriate. * DVT prophylaxis - Hold, restart warfarin after L1 kyphoplasty. * Gout - Allopurinol 100MG daily. * Anxiety - Xanax 0.5MG QHS PRN, stable chronic manager intermediate use, GDR not r ecommended. * Atrial Fibrillation - Metoprolol succinate 50MG daily, Amiodarone 200MG daily, restart warfarin after L1 kyphoplasty. * Chronic systolic congestive heart failure - Metoprolol succinate 50MG daily, Bumex 1MG daily, Metolazone 2.5MG once per week PRN. * Macular degeneration - Ocuvite 1 tablet daily. * Calcium deficiency -Calcium D 1 tablet daily. * Dry eyes - Refresh tears 1GTT OU TID. * Iron deficiency anemia - Ferrous Sulfate 325MG daily. * Ocular inflammation - Fluorometholone 1GTT OU QHS. * Neuropathic pain - Gabapentin 100MG BID. * Indigestion - Mylanta II 30ML Q6H PRN. * Hypomagnesemia - Magnesium Oxide 400MG daily. * Niacin deficiency - Niacin 25MG daily. * Urinary retention - Tamsulosin 0.4MG daily.
[2020-02-13 19:59] VITALS: BMI 28.3
[2020-02-13 20:07] VITALS: BMI 28.3
[2020-02-13 20:14] VITALS: BP 106/50; PULSE 70; RESP 16; TEMP 37; O2SAT 92
[2020-02-13 23:00] VITALS: BP 99/49; PULSE 72; RESP 16; TEMP 36.8; O2SAT 96
[2020-02-14] MEDS: traMADol 50 MG Tablet PO ×2 (00:25→20:46)
[2020-02-14 04:20] VITALS: BP 113/68; PULSE 81; RESP 18; TEMP 36.6; O2SAT 97
[2020-02-14] MEDS: oxyCODONE 5 MG Tablet PO (06:43)
[2020-02-14] MEDS: Acetaminophen 500 MG Tablet 1000 MG PO (06:43)
[2020-02-14] MEDS: Bumetanide 2 MG Tablet 1 MG PO (06:44)
[2020-02-14 06:45] VITALS: BP 113/76; PULSE 76
[2020-02-14] MEDS: Allopurinol 100 MG Tablet PO ×2 (06:45→09:24)
[2020-02-14] MEDS: Metoprolol(XL)Succ 50 MG Tablet PO (06:45)
[2020-02-14] MEDS: Multivitamin (Healthy Eyes) Capsule 1 CAP PO (06:45)
[2020-02-14] MEDS: Amiodarone 200 MG Tablet PO (06:46)
[2020-02-14] MEDS: Lidocaine 5% Patch 2 PATCH TOPICAL (06:47)
[2020-02-14] MEDS: Magnesium Chloride 64 MG Delay Rel.Tablet 128 MG PO (06:50)
[2020-02-14 07:49] LABS: Absolute Lymphocyte Count 0.55 X10^3/uL (0.83-4.51); Absolute Neutrophil Count 6.2 X10^3/uL (2.0-7.7); Basophil# 0.01 X10^3/uL; Basophil% 0.1 % (0-1); Eosinophil# 0.03 X10^3/uL; Eosinophils% 0.4 % (0-5); Hematocrit 37.5 % (37-47); Hemoglobin 11.5 g/dL (12.0-15.0); Lymphocyte # 0.55 X10^3/ul (4.0); Lymphocyte % 7.4 % (19-41); Mean Corp Hgb Conc 30.7 g/dL (32-36); Mean Corpuscular Hgb 28.2 pg (27.0-32.0); Mean Corpuscular Volume 91.9 fL (81-99); Mean Platelet Vol. 10.7 fl (6.2-12.0); NRBC Flagged by Analyzer 0 % (0-5); Neutrophil # 6.23 X10^3/uL (2.7-7.7); Neutrophil % 83.6 % (47-70); POSITIVE DIFFERENTIAL YES; Platelet Count 117 K/mm3 (150-450); RBC Distribution Width CV 16.4 % (11.6-14.6); RBC Distribution Width SD 55.6 fl (35.1-43.9); Red Blood Count 4.08 M/mm3 (4.2-5.4); White Blood Count 7.5 K/mm3 (4.4-11.0)
[2020-02-14 07:58] LABS: Anion Gap 5 (5-15); BUN 58 mg/dL (7-18); BUN/Creat Ratio 29.4 RATIO (10-20); Calcium,Total 8.5 mg/dL (8.5-10.1); Chloride 101 mmol/L (98-107); Creatinine, Serum 1.97 mg/dL (0.55-1.02); EST Glomerular Filtration Rate 26 mL/min (>60); Est Glom Filt Rate - Afr Amer 31 mL/min (>60); Estimated Creatinine Clearance 19.13 ml/min; Glucose 121 mg/dL (74-106); Potassium 3.9 mmol/L (3.5-5.1); Sodium Level 137 mmol/L (136-145)
[2020-02-14 08:02] LABS: Differential Indicated SCAN CRITERIA MET
[2020-02-14 08:44] LABS: Differential Comment SCANNED
[2020-02-14] MEDS: Gabapentin 100 MG Capsule PO (09:24)
[2020-02-14] MEDS: Calcium Carb/Vitamin D 1 TABLET Tablet PO (09:24)
[2020-02-14] MEDS: Ferrous Sulfate 325 MG Tablet PO (09:24)
[2020-02-14] MEDS: Tamsulosin HCl 0.4 MG Capsule PO (09:24)
[2020-02-14] MEDS: Tuberculin,Purif.prot.deriv. 50 TU/ML Vial 5 ML ID (09:25)
[2020-02-14 10:00] VITALS: PULSE 70; RESP 16; O2SAT 96
[2020-02-14 12:02] VITALS: BP 125/52; PULSE 60; RESP 18; TEMP 36.1; O2SAT 96
[2020-02-15] MEDS: Acetaminophen 500 MG Tablet 1000 MG PO ×4 (00:20→23:23)
[2020-02-15 04:00] VITALS: BP 131/62; PULSE 75; RESP 18; TEMP 36.8; O2SAT 94
[2020-02-15] MEDS: Bumetanide 2 MG Tablet 1 MG PO (05:03)
[2020-02-15] MEDS: Lidocaine 5% Patch 2 PATCH TOPICAL (05:03)
[2020-02-15] MEDS: Magnesium Chloride 64 MG Delay Rel.Tablet 128 MG PO (05:03)
[2020-02-15] MEDS: Amiodarone 200 MG Tablet PO (05:05)
[2020-02-15] MEDS: Multivitamin (Healthy Eyes) Capsule 1 CAP PO (05:05)
[2020-02-15 05:06] VITALS: BP 131/62; PULSE 75
[2020-02-15] MEDS: Metoprolol(XL)Succ 50 MG Tablet PO (05:06)
[2020-02-15] MEDS: Senna/Docusate Sodium 1 Tablet 2 TABLET PO (05:07)
[2020-02-15 05:59] LABS: International Normalized Ratio 1.3; Prothrombin Time (Protime)PT. 15.8 SECONDS (11.7-14.9)
[2020-02-15] MEDS: Ferrous Sulfate 325 MG Tablet PO (08:23)
[2020-02-15] MEDS: Allopurinol 100 MG Tablet PO (08:24)
[2020-02-15] MEDS: Gabapentin 100 MG Capsule PO ×2 (08:24→16:28)
[2020-02-15] MEDS: Calcium Carb/Vitamin D 1 TABLET Tablet PO (08:24)
[2020-02-15] MEDS: Tamsulosin HCl 0.4 MG Capsule PO (08:24)
[2020-02-15 13:23] VITALS: BP 123/54; PULSE 61; RESP 18; TEMP 36.2; O2SAT 97
[2020-02-15] MEDS: traMADol 50 MG Tablet PO (22:02)
[2020-02-15 23:14] VITALS: PULSE 74; RESP 16; O2SAT 94
[2020-02-16] MEDS: traMADol 50 MG Tablet PO ×2 (04:27→16:05)
[2020-02-16] MEDS: Magnesium Chloride 64 MG Delay Rel.Tablet 128 MG PO (06:32)
[2020-02-16] MEDS: Acetaminophen 500 MG Tablet 1000 MG PO ×2 (06:32→21:56)
[2020-02-16] MEDS: Senna/Docusate Sodium 1 Tablet 2 TABLET PO ×2 (06:33→17:07)
[2020-02-16] MEDS: Multivitamin (Healthy Eyes) Capsule 1 CAP PO (06:33)
[2020-02-16] MEDS: Bumetanide 2 MG Tablet 1 MG PO (06:33)
[2020-02-16 06:35] VITALS: PULSE 74
[2020-02-16] MEDS: Metoprolol(XL)Succ 50 MG Tablet PO (06:35)
[2020-02-16] MEDS: Lidocaine 5% Patch 2 PATCH TOPICAL (06:38)
[2020-02-16 06:43] VITALS: BP 104/51; PULSE 74; RESP 16; TEMP 37.2; O2SAT 93
[2020-02-16] MEDS: Amiodarone 200 MG Tablet PO (06:43)
[2020-02-16 07:10] LABS: International Normalized Ratio 1.3; Prothrombin Time (Protime)PT. 15.7 SECONDS (11.7-14.9)
[2020-02-16] MEDS: Gabapentin 100 MG Capsule PO ×2 (08:05→16:06)
[2020-02-16] MEDS: Calcium Carb/Vitamin D 1 TABLET Tablet PO (08:05)
[2020-02-16] MEDS: Tamsulosin HCl 0.4 MG Capsule PO (08:05)
[2020-02-16] MEDS: Allopurinol 100 MG Tablet PO (08:05)
[2020-02-16] MEDS: Ferrous Sulfate 325 MG Tablet PO (08:05)
[2020-02-16 10:00] VITALS: PULSE 71; RESP 18; O2SAT 97
[2020-02-16 12:59] VITALS: BP 92/46; PULSE 61; RESP 17; TEMP 36.7; O2SAT 95
--- NOTE | 2020-02-16 14:16 | PHA.CONS_ITS ---
<JairoArchana M - Last Filed: 02/16/20 14:16> Progress Note - Pharmacy Subjective: [facility]CU ADMISSION Objective: Allergies erythromycin base Adverse Reaction (Verified 12/03/19 13:00) Vomiting meperidine [From Demerol] Adverse Reaction (Verified 12/03/19 13:00) Vomiting Current Medications Generic Name Dose Route Start Last Admin Trade Name Freq PRN Reason Stop Dose Admin Acetaminophen 1,000 mg 02/13/20 20:07 02/16/20 06:32 Acetaminophen 500 Mg Tablet PO 1,000 mg Q6H PRN PRN Administration Pain Score 1-10 Al Hydroxide/Mg Hydroxide 30 ml 02/13/20 19:22 Mag Hydrox/Al Hydrox/Simeth 30 Ml Udc PO Q6H PRN PRN Gastric Burning Allopurinol 100 mg 02/14/20 06:00 02/16/20 08:05 Allopurinol 100 Mg Tablet PO 100 mg DAILYCM JEANA Administration Alprazolam 0.5 mg 02/13/20 19:22 Alprazolam 0.5 Mg Tablet PO QHS PRN ANXIETY Amiodarone HCl 200 mg 02/14/20 06:00 02/16/20 06:43 Amiodarone 200 Mg Tablet PO 200 mg DAILY JEANA Administration Artificial Tears 1 drop 02/13/20 22:00 02/16/20 13:04 Dextran 70/He-Cell 15ml Bottle EACH EYE Not Given TID JEANA Bisacodyl 10 mg 02/13/20 20:07 Bisacodyl 10 Mg Suppository RECTAL DAILY PRN Constipation Bumetanide 1 mg 02/14/20 06:00 02/16/20 06:33 Bumetanide 2 Mg Tablet PO 1 mg DAILY JEANA Administration Calcium/Vitamin D 1 tablet 02/14/20 08:00 02/16/20 08:05 Calcium Carb/Vitamin D 1 Tablet Tablet PO 1 tablet DAILYCM JEANA Administration Ferrous Sulfate 325 mg 02/14/20 08:00 02/16/20 08:05 Ferrous Sulfate 325 Mg Tablet PO 325 mg DAILYCM JEANA Administration Gabapentin 100 mg 02/14/20 08:00 02/16/20 08:05 Gabapentin 100 Mg Capsule PO 100 mg BIDCM JEANA Administration Lidocaine 2 patch 02/14/20 06:00 02/16/20 06:38 Lidocaine 5% Patch TOPICAL 2 patch DAILY JEANA Administration Protocol Magnesium Chloride 128 mg 02/14/20 06:00 02/16/20 06:32 Magnesium Chloride 64 Mg Delay Rel.Tablet PO 128 mg DAILY JEANA Administration Magnesium Hydroxide 30 ml 02/13/20 20:08 Magnesium Hydroxide 30 Ml Udc PO DAILY PRN Constipation Metolazone 2.5 mg 02/13/20 19:22 Metolazone 2.5 Mg Tablet PO QWEEK PRN SWELLING Metoprolol Succinate 50 mg 02/14/20 06:00 02/16/20 06:35 Metoprolol(Xl)Succ 50 Mg Tablet PO 50 mg DAILY JEANA Administration Multi-Ingredient Cream 1 applic 02/16/20 22:00 Mineral Oil/Petrolatum,White 1 Applic Opth.Tube OP QHS [facility] Multivitamins/Minerals 1 capsule 02/14/20 06:00 02/16/20 06:33 Multivitamin (Healthy Eyes) Capsule PO 1 capsule DAILY JEANA Administration Niacin 250 mg 02/14/20 06:00 02/16/20 06:33 Niacin 250 Mg Capsule PO 250 mg DAILY [facility] Administration Oxycodone HCl 5 mg 02/13/20 20:07 02/14/20 06:43 Oxycodone 5 Mg Tablet PO 5 mg Q4H PRN PRN Administration Pain Score 6-10 Polyethylene Glycol 17 gm 02/14/20 06:00 02/16/20 06:38 Polyethylene Glycol 3350 17 Gm Packet PO Not Given DAILY [facility] Senna/Docusate Sodium 2 tablet 02/14/20 06:00 02/16/20 06:33 Senna/Docusate Sodium 1 Tablet PO 2 tablet BID JEANA Administration Tamsulosin HCl 0.4 mg 02/14/20 08:30 02/16/20 08:05 Tamsulosin Hcl 0.4 Mg Capsule PO 0.4 mg DAILY@0830 [facility] Administration Tramadol HCl 50 mg 02/13/20 19:22 02/16/20 04:27 Tramadol 50 Mg Tablet PO 50 mg Q6H PRN PRN Administration Pain Score 4-5 Tuberculin PPD 5 tu 02/21/20 10:00 Tuberculin,Purif.Prot.Deriv. 50 Tu/Ml Vial ID 02/21/20 10:01 X1 ONE Problem List (Last Reviewed 02/12/20 @ 20:[address] Adarsh Gipson, DO) Intractable back pain (Acute) Debility (Acute) CAD (coronary artery disease) (Chronic) Systolic CHF (Chronic) Compression fracture of L1 lumbar vertebra (Acute) Iron deficiency anemia (Chronic) Gout (Chronic) Urinary retention (Acute) Hypomagnesemia (Chronic) Atrial fibrillation (Chronic) Hypertension (Chronic) Pulmonary hypertension (Chronic) Chronic kidney disease (Chronic) Diabetes mellitus (Chronic) Breast cancer (Chronic) Renal cell cancer (Chronic) Vital Signs Temp Pulse Resp BP Pulse Ox 98.0 F 61 17 92/46 L 95 02/16/20 12:59 02/16/20 12:59 02/16/20 12:59 02/16/20 12:59 02/16/20 12:59 Oxygen Delivery Method Room Air Weight: 77.1 kg Body Mass Index (BMI) 28.3 Sodium 137 mmol/L (136-145) 02/14/20 06:15 Potassium 3.9 mmol/L (3.5-5.1) 02/14/20 06:15 Chloride 101 mmol/L (98-107) 02/14/20 06:15 Carbon Dioxide 31.0 mmol/L (21.0-32.0) 02/14/20 06:15 Anion Gap 5 (5-15) 02/14/20 06:15 BUN 58 mg/dL (7-18) H 02/14/20 06:15 Creatinine 1.97 mg/dL (0.55-1.02) H 02/14/20 06:15 Est GFR (MDRD) Af Amer 31 mL/min (>60) L 02/14/20 06:15 Est GFR (MDRD) Non-Af 26 mL/min (>60) L 02/14/20 06:15 BUN/Creatinine Ratio 29.4 RATIO (10-20) H 02/14/20 06:15 Glucose 121 mg/dL (74-106) H 02/14/20 06:15 Assessment/Plan: 1. Pain: Lidocaine Patch 2 patch topically Daily, Tylenol 1000mg PO Q6h PRN Pain 1-10/10, Oxycodone 5mg PO Q4h PRN Pain 6-10/10, Tramadol 50mg PO Pain 4-5/10. Please continue to monitor for increased/decreased pain, PRN medication usage. 2. Atrial Fibrillation: Amiodarone 200mg PO Daily, Toprol XL 50mg PO Daily. Please continue to monitor BP, Pulse, S/S blood clot (Home Warfarin on hold now for procedure per H/P). 3. CHF: Bumetanide 1mg PO Daily, Toprol XL 50mg PO Daily, Metolazone 2.5mg PO QWeek PRN swelling. Please continue to monitor BP, pulse, electrolytes, fluid status, PRN medication usage. 4. Urinary retention: Flomax 0.4mg PO Daily. Please continue to monitor for improvement in symptoms. 5. Macular Degeneration / Dry Eyes: Artificial Tear 1gtt OU TID, Healthy EYE Multivitamin 1 cap PO Daily. Please continue to monitor for symptom improvement, monitor for progression of disease. 6. Gout: Allopurinol 100mg PO Daily. Please continue to monitor for S/S gout flare-up, labs as clinically indicated. 7. Neuropathic Pain: Gabapentin 100mg PO BID. Please continue to monitor for improvement in symptoms, renal function. 8. Indigestion: Maalox 30mL PO Q6h PRN. Please continue to monitor for PRN medication usage. Please encourage non-pharmacologic options to minimize indigestion/GERD flare-up as well, thank you. 9. Iron Deficiency: Ferrous Sulfate 325mg PO Daily. Please continue to monitor iron studies and labs at least annually or sooner if clinically indicated, thank you. 10. General Wellness: Os-Inder +D 1 tab PO Daily, magnesium Chloride 128mg PO Daily, Niacin 250mg PO daily. Please continue to monitor labs as clinically indicated. Psychotropic Medications: *11. Anxiety: Xanax 0.5mg PO QHS PRN. Please consider a GDR by 07/2020 if clinically indicated, thank you. Unnecessary Medications: None Bowel Regimen: Miralax 17g PO Daily, Senna/Docusate 2 tab PO BID, Bisacodyl 10mg CT Daily PRN, MOM 30mL PO Daily PRN. Please continue to monitor for increased/decreased constipation and/or diarrhea. Date of Note:: 02/16/20 - Provider Comments Provider responsibility: Provider responsible to enter orders to implement recommendations <Mikie Arreguin Chi - Last Filed: 02/16/20 17:31> Progress Note - Pharmacy Subjective: [] Objective: Allergies erythromycin base Adverse Reaction (Verified 12/03/19 13:00) Vomiting meperidine [From Demerol] Adverse Reaction (Verified 12/03/19 13:00) Vomiting Current Medications Generic Name Dose Route Start Last Admin Trade Name Freq PRN Reason Stop Dose Admin Acetaminophen 1,000 mg 02/13/20 20:07 02/16/20 06:32 Acetaminophen 500 Mg Tablet PO 1,000 mg Q6H PRN PRN Administration Pain Score 1-10 Al Hydroxide/Mg Hydroxide 30 ml 02/13/20 19:22 Mag Hydrox/Al Hydrox/Simeth 30 Ml Udc PO Q6H PRN PRN Gastric Burning Allopurinol 100 mg 02/14/20 06:00 02/16/20 08:05 Allopurinol 100 Mg Tablet PO 100 mg DAILYCM JEANA Administration Alprazolam 0.5 mg 02/13/20 19:22 Alprazolam 0.5 Mg Tablet PO QHS PRN ANXIETY Amiodarone HCl 200 mg 02/14/20 06:00 02/16/20 06:43 Amiodarone 200 Mg Tablet PO 200 mg DAILY JEANA Administration Artificial Tears 1 drop 02/13/20 22:00 02/16/20 13:04 Dextran 70/He-Cell 15ml Bottle EACH EYE Not Given TID JEANA Bisacodyl 10 mg 02/13/20 20:07 Bisacodyl 10 Mg Suppository RECTAL DAILY PRN Constipation Bumetanide 1 mg 02/14/20 06:00 02/16/20 06:33 Bumetanide 2 Mg Tablet PO 1 mg DAILY [facility] Administration Calcium/Vitamin D 1 tablet 02/14/20 08:00 02/16/20 08:05 Calcium Carb/Vitamin D 1 [facility] Administration Ferrous Sulfate 325 mg 02/14/20 08:00 02/16/20 08:05 Ferrous Sulfate 325 Mg Tablet PO 325 mg DAILYCM [facility] Administration Gabapentin 100 mg 02/14/20 08:00 02/16/20 16:06 [facility] 100 Mg [facility]aps[facility] Administration Lidocaine 2 patch 02/14/20 06:00 02/16/20 06:38 Lidocaine 5% Patch TOPICAL 2 patch DAILY [facility] Administration Protocol Magnesium Chloride 128 mg 02/14/20 06:00 02/16/20 06:32 Magnesium Chloride 64 Mg Delay Rel.Tablet PO 128 mg DAILY JEANA Administration Magnesium Hydroxide 30 ml 02/13/20 20:08 Magnesium Hydroxide 30 Ml Udc PO DAILY PRN Constipation Metolazone 2.5 mg 02/13/20 19:22 Metolazone 2.5 Mg Tablet PO QWEEK PRN SWELLING Metoprolol Succinate 50 mg 02/14/20 06:00 02/16/20 06:35 Metoprolol(Xl)Succ 50 Mg Tablet PO 50 mg DAILY JEANA Administration Multi-Ingredient Cream 1 applic 02/16/20 22:00 Mineral Oil/Petrolatum,White 1 Applic Opth.Tube OP QHS JEANA Multivitamins/Minerals 1 capsule 02/14/20 06:00 02/16/20 06:33 Multivitamin (Healthy Eyes) Capsule PO 1 capsule DAILY [facility] Administration Niacin 250 mg 02/14/20 06:00 02/16/20 06:33 Niacin 250 Mg Capsule PO 250 mg DAILY [facility] Administration Oxycodone HCl 5 mg 02/13/20 20:07 02/14/20 06:43 Oxycodone 5 Mg Tablet PO 5 mg Q4H PRN PRN Administration Pain Score 6-10 Polyethylene Glycol 17 gm 02/14/20 06:00 02/16/20 06:38 Polyethylene Glycol 3350 17 Gm Packet PO Not Given DAILY [facility] Senna/Docusate Sodium 2 tablet 02/14/20 06:00 02/16/20 17:07 Senna/Docusate Sodium 1 Tablet PO 2 tablet BID [facility] Administration Tamsulosin HCl 0.4 mg 02/14/20 08:30 02/16/20 08:05 Tamsulosin Hcl 0.4 Mg Capsule PO 0.4 mg DAILY@0830 [facility] Administration Tramadol HCl 50 mg 02/13/20 19:22 02/16/20 16:05 Tramadol 50 Mg Tablet PO 50 mg Q6H PRN PRN Administration Pain Score 4-5 Tuberculin PPD 5 tu 02/21/20 10:00 Tuberculin,Purif.Prot.Deriv. 50 Tu/Ml Vial ID 02/21/20 10:01 X1 ONE Problem List (Last Reviewed 02/12/20 @ 20:[address] Adarsh Gipson, DO) Intractable back pain (Acute) Debility (Acute) CAD (coronary artery disease) (Chronic) Systolic CHF (Chronic) Compression fracture of L1 lumbar vertebra (Acute) Iron deficiency anemia (Chronic) Gout (Chronic) Urinary retention (Acute) Hypomagnesemia (Chronic) Atrial fibrillation (Chronic) Hypertension (Chronic) Pulmonary hypertension (Chronic) Chronic kidney disease (Chronic) Diabetes mellitus (Chronic) Breast cancer (Chronic) Renal cell cancer (Chronic) Vital Signs Temp Pulse Resp BP Pulse Ox 98.0 F 61 17 92/46 L 95 02/16/20 12:59 02/16/20 12:59 02/16/20 12:59 02/16/20 12:59 02/16/20 12:59 Oxygen Delivery Method Room Air Weight: 81.511 kg Body Mass Index (BMI) 28.3 Sodium 137 mmol/L (136-145) 02/14/20 06:15 Potassium 3.9 mmol/L (3.5-5.1) 02/14/20 06:15 Chloride 101 mmol/L (98-107) 02/14/20 06:15 Carbon Dioxide 31.0 mmol/L (21.0-32.0) 02/14/20 06:15 Anion Gap 5 (5-15) 02/14/20 06:15 BUN 58 mg/dL (7-18) H 02/14/20 06:15 Creatinine 1.97 mg/dL (0.55-1.02) H 02/14/20 06:15 Est GFR (MDRD) Af Amer 31 mL/min (>60) L 02/14/20 06:15 Est GFR (MDRD) Non-Af 26 mL/min (>60) L 02/14/20 06:15 BUN/Creatinine Ratio 29.4 RATIO (10-20) H 02/14/20 06:15 Glucose 121 mg/dL (74-106) H 02/14/20 06:15 Assessment/Plan: Psychotropic Medications: Unnecessary Medications: Bowel Regimen: - Provider Comments Provider responsibility: Provider responsible to enter orders to implement recommendations Provider Comments to Recommendations by Pharmacy: Agree
--- NOTE | 2020-02-16 14:32 | NURSING ---
This nurse talked with Tuyet from Dr. Hong's office and was told Dr. Hong wants patients PT at or below 14 before he will perform kyphoplasty. Also instructed this nurse to contact [facility] to see if they would like pt to take other anticoagulant d/t coumadin being on hold for surgery. Once PT is at or below 14, call Dr. Hong's office to schedule kyphoplasty.
--- NOTE | 2020-02-16 14:47 | NURSING ---
Talked with [facility] to see if they wanted her on anything prophylactically for A-Fib since Coumadin is on hold.. They said they don't bridge anymore for A-Fib.
--- NOTE | 2020-02-16 14:59 | CASEMGMT ---
Social Work Discussed code status with pt. Pt confirmed DNR-CC. MOLST form reviewed, communication given to dr, and placed in chart. Eugenia Leyva, RADIOLOGIC ELECTRONIC SPECIALIST KILN PUSHER
[2020-02-16] MEDS: Phytonadione (Vit K1) 5 MG TABLET PO (21:58)
[2020-02-17 04:26] VITALS: BP 105/60; PULSE 76; RESP 18; TEMP 36.8; O2SAT 96
[2020-02-17 05:21] VITALS: PULSE 76
[2020-02-17] MEDS: Senna/Docusate Sodium 1 Tablet 2 TABLET PO ×2 (05:21→17:08)
[2020-02-17] MEDS: Metoprolol(XL)Succ 50 MG Tablet PO (05:21)
[2020-02-17] MEDS: Magnesium Chloride 64 MG Delay Rel.Tablet 128 MG PO (05:21)
[2020-02-17] MEDS: Bumetanide 2 MG Tablet 1 MG PO (05:21)
[2020-02-17] MEDS: Multivitamin (Healthy Eyes) Capsule 1 CAP PO (05:21)
[2020-02-17] MEDS: Amiodarone 200 MG Tablet PO (05:21)
[2020-02-17 05:54] LABS: International Normalized Ratio 1.3
[2020-02-17] MEDS: Magnesium Hydroxide 30 ML UDC PO (07:57)
[2020-02-17] MEDS: Gabapentin 100 MG Capsule PO ×2 (07:58→17:08)
[2020-02-17] MEDS: Ferrous Sulfate 325 MG Tablet PO (07:58)
[2020-02-17] MEDS: Calcium Carb/Vitamin D 1 TABLET Tablet PO (07:58)
[2020-02-17] MEDS: Allopurinol 100 MG Tablet PO (07:59)
[2020-02-17] MEDS: Tamsulosin HCl 0.4 MG Capsule PO (07:59)
[2020-02-17] MEDS: Lidocaine 5% Patch 2 PATCH TOPICAL (09:16)
[2020-02-17 09:27] LABS: Magnesium 2.3 mg/dL (1.6-2.6)
[2020-02-17 13:23] VITALS: BP 127/55; PULSE 76; RESP 18; TEMP 36.3; O2SAT 94
[2020-02-17] MEDS: Acetaminophen 500 MG Tablet 1000 MG PO (17:55)
[2020-02-18 05:00] VITALS: BP 110/64; PULSE 75; RESP 18; TEMP 36.6; O2SAT 90
[2020-02-18] MEDS: Magnesium Chloride 64 MG Delay Rel.Tablet 128 MG PO (05:00)
[2020-02-18 05:08] VITALS: BP 110/64; PULSE 75
[2020-02-18] MEDS: Metoprolol(XL)Succ 50 MG Tablet PO (05:08)
[2020-02-18] MEDS: Multivitamin (Healthy Eyes) Capsule 1 CAP PO (05:08)
[2020-02-18] MEDS: Bumetanide 2 MG Tablet 1 MG PO (05:08)
[2020-02-18] MEDS: Amiodarone 200 MG Tablet PO (05:08)
[2020-02-18] MEDS: Lidocaine 5% Patch 2 PATCH TOPICAL (05:09)
[2020-02-18 05:56] LABS: International Normalized Ratio 1.4; Prothrombin Time (Protime)PT. 16.1 SECONDS (11.7-14.9)
[2020-02-18] MEDS: Calcium Carb/Vitamin D 1 TABLET Tablet PO (08:00)
[2020-02-18] MEDS: Ferrous Sulfate 325 MG Tablet PO (08:00)
[2020-02-18] MEDS: Tamsulosin HCl 0.4 MG Capsule PO (08:01)
[2020-02-18] MEDS: Allopurinol 100 MG Tablet PO (08:01)
[2020-02-18] MEDS: Gabapentin 100 MG Capsule PO ×2 (08:01→17:39)
[2020-02-18] MEDS: Acetaminophen 500 MG Tablet 1000 MG PO (11:52)
--- NOTE | 2020-02-18 13:24 | CASEMGMT ---
Social Work IDT met with patient and dtr via conference call for care plan meeting. Discussed patient's progress in therapy. Pt is min-modA for sit to stands, CGA/ SBA for tx, and ambulating 60 ft with FWW. Pts right knee is buckling with tx now. Pt is supervised for grooming, SBA for UE bathing, mod-max for UE dressing d/t limited ROM in shoulders, max for LE ADLS d/t to no bending, but using AE, Elaine for toilet tx, SBA for toileting tasks. Pt is on a carb controlled cardiac low sodium diet, weight stable. Pt is out of room isolation 02/26. Explained Medicare benefit. The goal is for pt to return to [facility] [place]. Will continue to follow. VIPIN KitchenW
[2020-02-18 15:30] VITALS: PULSE 65; RESP 16; O2SAT 98
[2020-02-18 16:00] VITALS: BP 93/50; PULSE 65; RESP 12; TEMP 36.6; O2SAT 97
--- NOTE | 2020-02-18 16:45 | NURSING ---
this nurse noticed pt did not take a breath for about 7 sec. while sleeping. oxygen 92%. pt woke up and this nurse asked pt if she had sleep ap. pt stated yes. asked pt if she would like a sleep study done. pt stated no at this age if its my time to go fanny ready to go. reported to rn.
--- NOTE | 2020-02-18 17:06 | NURSING ---
updated pt daughter.
[2020-02-18] MEDS: Senna/Docusate Sodium 1 Tablet 2 TABLET PO (17:39)
[2020-02-18 20:51] VITALS: PULSE 72; RESP 16; O2SAT 95
[2020-02-18] MEDS: Menthol/Lanolin/Calamine/Znox 113 GM Tube 1 APPLIC TOPICAL (21:05)
[2020-02-19] MEDS: Acetaminophen 500 MG Tablet 1000 MG PO ×3 (01:45→20:13)
[2020-02-19 05:00] VITALS: BP 100/60; PULSE 68; RESP 18; TEMP 36.6; O2SAT 95
[2020-02-19] MEDS: Polyethylene Glycol 3350 17 GM PACKET PO (05:28)
[2020-02-19 05:29] VITALS: BP 100/60; PULSE 68
[2020-02-19] MEDS: Amiodarone 200 MG Tablet PO (05:29)
[2020-02-19] MEDS: Senna/Docusate Sodium 1 Tablet 2 TABLET PO ×2 (05:29→17:38)
[2020-02-19] MEDS: Multivitamin (Healthy Eyes) Capsule 1 CAP PO (05:29)
[2020-02-19] MEDS: Magnesium Chloride 64 MG Delay Rel.Tablet 128 MG PO (05:29)
[2020-02-19] MEDS: Lidocaine 5% Patch 2 PATCH TOPICAL (05:29)
[2020-02-19] MEDS: Metoprolol(XL)Succ 50 MG Tablet PO (05:29)
[2020-02-19] MEDS: Bumetanide 2 MG Tablet 1 MG PO (05:30)
[2020-02-19] MEDS: Menthol/Lanolin/Calamine/Znox 113 GM Tube 1 APPLIC TOPICAL ×3 (05:32→19:50)
[2020-02-19 06:20] LABS: International Normalized Ratio 1.3; Prothrombin Time (Protime)PT. 15.3 SECONDS (11.7-14.9)
[2020-02-19] MEDS: Ferrous Sulfate 325 MG Tablet PO (08:24)
[2020-02-19] MEDS: Tamsulosin HCl 0.4 MG Capsule PO (08:25)
[2020-02-19] MEDS: Gabapentin 100 MG Capsule PO ×2 (08:25→17:38)
[2020-02-19] MEDS: Allopurinol 100 MG Tablet PO (08:25)
[2020-02-19] MEDS: Calcium Carb/Vitamin D 1 TABLET Tablet PO (08:25)
[2020-02-19 12:32] VITALS: BP 95/43; PULSE 72; RESP 17; TEMP 36.6; O2SAT 97
[2020-02-19] MEDS: 0.9% Saline Lock 10 ML Syringe IV ×2 (14:34→20:14)
--- NOTE | 2020-02-19 17:01 | NURSING ---
pt returned from appt with Dr. Hong, no new orders.
[2020-02-19 17:44] VITALS: BP 97/51; PULSE 71
[2020-02-19 20:05] VITALS: PULSE 68; RESP 16; O2SAT 94
[2020-02-20] MEDS: traMADol 50 MG Tablet PO ×3 (01:04→19:29)
[2020-02-20 04:38] VITALS: BP 109/52; PULSE 74; RESP 16; TEMP 36.9; O2SAT 94
[2020-02-20] MEDS: Lidocaine 5% Patch 2 PATCH TOPICAL (04:44)
[2020-02-20 04:45] VITALS: BP 109/52; PULSE 74
[2020-02-20] MEDS: Magnesium Chloride 64 MG Delay Rel.Tablet 128 MG PO (04:45)
[2020-02-20] MEDS: Bumetanide 2 MG Tablet 1 MG PO (04:45)
[2020-02-20] MEDS: Amiodarone 200 MG Tablet PO (04:45)
[2020-02-20] MEDS: Metoprolol(XL)Succ 50 MG Tablet PO (04:45)
[2020-02-20] MEDS: Senna/Docusate Sodium 1 Tablet 2 TABLET PO ×2 (04:46→17:15)
[2020-02-20] MEDS: Polyethylene Glycol 3350 17 GM PACKET PO (04:46)
[2020-02-20] MEDS: Multivitamin (Healthy Eyes) Capsule 1 CAP PO (04:46)
[2020-02-20] MEDS: Menthol/Lanolin/Calamine/Znox 113 GM Tube 1 APPLIC TOPICAL ×3 (04:48→19:31)
[2020-02-20 06:26] LABS: International Normalized Ratio 1.3; Prothrombin Time (Protime)PT. 15.9 SECONDS (11.7-14.9)
[2020-02-20 06:27] LABS: Partial Thromboplast Time 46.2 Seconds (24.1-36.2)
[2020-02-20] MEDS: Tamsulosin HCl 0.4 MG Capsule PO (08:01)
[2020-02-20] MEDS: Ferrous Sulfate 325 MG Tablet PO (08:01)
[2020-02-20] MEDS: Allopurinol 100 MG Tablet PO (08:01)
[2020-02-20] MEDS: Calcium Carb/Vitamin D 1 TABLET Tablet PO (08:01)
[2020-02-20] MEDS: Gabapentin 100 MG Capsule PO ×2 (08:01→17:14)
[2020-02-20 10:00] VITALS: PULSE 76; RESP 16; O2SAT 97
[2020-02-20 14:23] VITALS: BP 105/54; PULSE 56; RESP 16; TEMP 36.4; O2SAT 100
--- NOTE | 2020-02-20 15:04 | NURSING ---
This nurse talked with Dr. Hong regarding kyphoplasty. Hematology was consulted and Dr. Hong is waiting on clearance from hematology to perform kyphoplasty at this time. Labs were ordered per Dr. Anton
[2020-02-20 15:37] LABS: International Normalized Ratio 1.3; Prothrombin Time (Protime)PT. 15.5 SECONDS (11.7-14.9)
[2020-02-20 15:59] LABS: Partial Thromboplast Time 45.1 Seconds (24.1-36.2)
--- NOTE | 2020-02-20 16:14 | NURSING ---
Dr. Anton ordered a prolonged PTT test. Was unsure how to put the order in so called lab. Lab stated to do a misc. lab and enter all of the panel that is needed. Lab stated that TCU does not have the order number to put in the correct order. A order for INR, APTT, Gerard Viper Venom, PT was entered.
[2020-02-21 05:00] VITALS: BP 111/58; PULSE 74; RESP 16; TEMP 36.7; O2SAT 94
[2020-02-21 05:11] VITALS: BP 111/58; PULSE 74
[2020-02-21] MEDS: Magnesium Chloride 64 MG Delay Rel.Tablet 128 MG PO (05:11)
[2020-02-21] MEDS: Senna/Docusate Sodium 1 Tablet 2 TABLET PO ×2 (05:11→17:34)
[2020-02-21] MEDS: Metoprolol(XL)Succ 50 MG Tablet PO (05:11)
[2020-02-21] MEDS: Lidocaine 5% Patch 2 PATCH TOPICAL (05:11)
[2020-02-21] MEDS: Amiodarone 200 MG Tablet PO (05:12)
[2020-02-21] MEDS: Bumetanide 2 MG Tablet 1 MG PO (05:12)
[2020-02-21] MEDS: Multivitamin (Healthy Eyes) Capsule 1 CAP PO (05:13)
[2020-02-21] MEDS: Polyethylene Glycol 3350 17 GM PACKET PO (05:13)
[2020-02-21] MEDS: Menthol/Lanolin/Calamine/Znox 113 GM Tube 1 APPLIC TOPICAL ×3 (05:14→19:46)
[2020-02-21] MEDS: Ferrous Sulfate 325 MG Tablet PO (07:56)
[2020-02-21] MEDS: Allopurinol 100 MG Tablet PO (07:56)
[2020-02-21] MEDS: Calcium Carb/Vitamin D 1 TABLET Tablet PO (07:56)
[2020-02-21] MEDS: Gabapentin 100 MG Capsule PO ×2 (07:56→17:34)
[2020-02-21] MEDS: Tamsulosin HCl 0.4 MG Capsule PO (07:57)
[2020-02-21] MEDS: Acetaminophen 500 MG Tablet 1000 MG PO (08:08)
[2020-02-21 09:06] LABS: Absolute Lymphocyte Count 0.53 X10^3/uL (0.83-4.51); Absolute Neutrophil Count 10.1 X10^3/uL (2.0-7.7); Basophil# 0.03 X10^3/uL; Basophil% 0.3 % (0-1); Eosinophil# 0.03 X10^3/uL; Eosinophils% 0.3 % (0-5); Hematocrit 37.3 % (37-47); Hemoglobin 11.2 g/dL (12.0-15.0); Lymphocyte # 0.53 X10^3/ul (4.0); Lymphocyte % 4.7 % (19-41); Mean Corpuscular Hgb 27.8 pg (27.0-32.0); Mean Corpuscular Volume 92.6 fL (81-99); Mean Platelet Vol. 9.5 fl (6.2-12.0); Monocyte# 0.53 X10^3/uL; Monocyte% 4.7 % (0-10); NRBC Flagged by Analyzer 0 % (0-5); Neutrophil # 10.14 X10^3/uL (2.7-7.7); Neutrophil % 89.4 % (47-70); POSITIVE DIFFERENTIAL YES; Platelet Count 181 K/mm3 (150-450); RBC Distribution Width CV 15.9 % (11.6-14.6); RBC Distribution Width SD 54.2 fl (35.1-43.9); Red Blood Count 4.03 M/mm3 (4.2-5.4); White Blood Count 11.3 K/mm3 (4.4-11.0)
[2020-02-21 09:15] LABS: Anion Gap 4 (5-15); BUN 49 mg/dL (7-18); BUN/Creat Ratio 28.3 RATIO (10-20); Chloride 105 mmol/L (98-107); Creatinine, Serum 1.73 mg/dL (0.55-1.02); EST Glomerular Filtration Rate 30 mL/min (>60); Est Glom Filt Rate - Afr Amer 36 mL/min (>60); Estimated Creatinine Clearance 21.78 ml/min; Glucose 119 mg/dL (74-106); Potassium 4.2 mmol/L (3.5-5.1); Sodium Level 139 mmol/L (136-145)
[2020-02-21 09:34] LABS: International Normalized Ratio 1.3; Prothrombin Time (Protime)PT. 15.4 SECONDS (11.7-14.9)
[2020-02-21] MEDS: traMADol 50 MG Tablet PO ×2 (10:26→19:58)
[2020-02-21] MEDS: Tuberculin,Purif.prot.deriv. 50 TU/ML Vial 5 ML ID (10:28)
[2020-02-21 10:40] LABS: Differential Indicated SCAN CRITERIA MET
[2020-02-21 13:15] VITALS: PULSE 102; RESP 18; O2SAT 96
[2020-02-21 14:16] VITALS: BP 100/58; PULSE 101; RESP 15; TEMP 36.4; O2SAT 93
[2020-02-22] MEDS: Acetaminophen 500 MG Tablet 1000 MG PO ×3 (00:46→20:19)
[2020-02-22] MEDS: Lidocaine 5% Patch 2 PATCH TOPICAL (06:43)
[2020-02-22] MEDS: Bumetanide 2 MG Tablet 1 MG PO (06:44)
[2020-02-22] MEDS: Magnesium Chloride 64 MG Delay Rel.Tablet 128 MG PO (06:44)
[2020-02-22] MEDS: Polyethylene Glycol 3350 17 GM PACKET PO (06:44)
[2020-02-22] MEDS: Menthol/Lanolin/Calamine/Znox 113 GM Tube 1 APPLIC TOPICAL ×3 (06:45→20:18)
[2020-02-22] MEDS: Multivitamin (Healthy Eyes) Capsule 1 CAP PO (06:45)
[2020-02-22] MEDS: Senna/Docusate Sodium 1 Tablet 2 TABLET PO ×2 (06:45→16:49)
[2020-02-22] MEDS: Amiodarone 200 MG Tablet PO (06:45)
[2020-02-22 06:46] VITALS: BP 101/62; PULSE 105
[2020-02-22] MEDS: Metoprolol(XL)Succ 50 MG Tablet PO (06:46)
[2020-02-22 06:55] VITALS: BP 101/62; PULSE 105; RESP 18; TEMP 36.6; O2SAT 95
[2020-02-22] MEDS: Allopurinol 100 MG Tablet PO (07:53)
[2020-02-22] MEDS: Tamsulosin HCl 0.4 MG Capsule PO (07:53)
[2020-02-22] MEDS: Calcium Carb/Vitamin D 1 TABLET Tablet PO (07:53)
[2020-02-22] MEDS: Gabapentin 100 MG Capsule PO ×2 (07:53→16:48)
[2020-02-22] MEDS: Ferrous Sulfate 325 MG Tablet PO (07:53)
[2020-02-22 08:51] LABS: International Normalized Ratio 1.3; Prothrombin Time (Protime)PT. 15.2 SECONDS (11.7-14.9)
[2020-02-22 14:35] VITALS: BP 91/53; PULSE 107; RESP 16; TEMP 36.4; O2SAT 95
--- NOTE | 2020-02-22 14:54 | NURSING ---
PT WITH INCREASED CONFUSION TODAY PER floor person, pt not opening eyes like her normal when talking to her. elevated WBCs, Decreased BP, ^ HR, afebrile. dr landrum updated, new order to check urine.
[2020-02-22 15:00] LABS: Mucous, Urine 0 SEEN /hpf (<or=2+); Red Blood Cells-Urine 0 SEEN /hpf (0-5)
[2020-02-22 15:06] LABS: Color, Urine Yellow (Yellow); Glucose, Dipstick Normal (Normal); Ketone-Dipstick Negative (Negative); Leukocyte Esterase-Dipstick 25 /ul (Negative); Nitrite-Dipstick Negative (Negative); Occult Blood-Urine Negative /ul (Negative); Protein-Dipstick 15 mg/dl (Negative); Specific Gravity, Urine 1.015 (1.002-1.030); Urine Bilirubin Dipstick Negative (Negative); Urine Clarity Clear (Clear); Urine Urobilinogen Normal (Normal)
[2020-02-22 15:15] LABS: Bacteria RARE /hpf (None Seen); Hyaline Cast 0-5 SEEN /lpf (0-5); Squamous Epithelial Cells - UA 0-5 SEEN /hpf (5-10); White Blood Cells 0-5 SEEN /hpf (0-5)
[2020-02-22] MEDS: traMADol 50 MG Tablet PO (16:48)
[2020-02-23] MEDS: traMADol 50 MG Tablet PO ×2 (01:07→21:05)
[2020-02-23 05:00] VITALS: BP 91/54; PULSE 105; RESP 18; TEMP 36.9; O2SAT 95
[2020-02-23 06:14] LABS: International Normalized Ratio 1.3; Prothrombin Time (Protime)PT. 16.1 SECONDS (11.7-14.9)
[2020-02-23] MEDS: Polyethylene Glycol 3350 17 GM PACKET PO (06:38)
[2020-02-23] MEDS: Amiodarone 200 MG Tablet PO (06:39)
[2020-02-23] MEDS: Bumetanide 2 MG Tablet 1 MG PO (06:39)
[2020-02-23] MEDS: Multivitamin (Healthy Eyes) Capsule 1 CAP PO (06:39)
[2020-02-23] MEDS: Magnesium Chloride 64 MG Delay Rel.Tablet 128 MG PO (06:40)
[2020-02-23] MEDS: Senna/Docusate Sodium 1 Tablet 2 TABLET PO ×2 (06:41→17:11)
[2020-02-23] MEDS: Acetaminophen 500 MG Tablet 1000 MG PO ×2 (06:41→15:00)
[2020-02-23] MEDS: Lidocaine 5% Patch 2 PATCH TOPICAL (06:42)
[2020-02-23] MEDS: Menthol/Lanolin/Calamine/Znox 113 GM Tube 1 APPLIC TOPICAL ×3 (06:45→21:11)
[2020-02-23 08:41] VITALS: BP 100/62; PULSE 108
[2020-02-23] MEDS: Ferrous Sulfate 325 MG Tablet PO (08:41)
[2020-02-23] MEDS: Calcium Carb/Vitamin D 1 TABLET Tablet PO (08:41)
[2020-02-23] MEDS: Gabapentin 100 MG Capsule PO ×2 (08:41→17:11)
[2020-02-23] MEDS: Metoprolol(XL)Succ 50 MG Tablet PO (08:41)
[2020-02-23] MEDS: Allopurinol 100 MG Tablet PO (08:42)
[2020-02-23] MEDS: Tamsulosin HCl 0.4 MG Capsule PO (08:42)
[2020-02-23] MEDS: Mag Hydrox/Al Hydrox/Simeth 30 ML UDC PO (10:21)
[2020-02-23 13:41] VITALS: BP 97/55; PULSE 82; RESP 16; TEMP 36.7; O2SAT 94
[2020-02-24 05:00] VITALS: BP 100/62; PULSE 115; RESP 18; TEMP 36.6; O2SAT 95
[2020-02-24] MEDS: Senna/Docusate Sodium 1 Tablet 2 TABLET PO ×2 (05:25→17:30)
[2020-02-24] MEDS: Polyethylene Glycol 3350 17 GM PACKET PO (05:25)
[2020-02-24] MEDS: Acetaminophen 500 MG Tablet 1000 MG PO (05:25)
[2020-02-24] MEDS: Lidocaine 5% Patch 2 PATCH TOPICAL (05:25)
[2020-02-24 05:26] VITALS: BP 100/62; PULSE 115
[2020-02-24] MEDS: Multivitamin (Healthy Eyes) Capsule 1 CAP PO (05:26)
[2020-02-24] MEDS: Bumetanide 2 MG Tablet 1 MG PO (05:26)
[2020-02-24] MEDS: Metoprolol(XL)Succ 50 MG Tablet PO (05:26)
[2020-02-24] MEDS: Magnesium Chloride 64 MG Delay Rel.Tablet 128 MG PO (05:26)
[2020-02-24] MEDS: Amiodarone 200 MG Tablet PO (05:27)
[2020-02-24] MEDS: Menthol/Lanolin/Calamine/Znox 113 GM Tube 1 APPLIC TOPICAL ×3 (05:35→23:26)
--- NOTE | 2020-02-24 07:17 | MDS.RN ---
Information for the mds was obtained from review of the clinical record, interview of resident, staff, and direct observation of resident's care.
[2020-02-24] MEDS: Tamsulosin HCl 0.4 MG Capsule PO (08:16)
[2020-02-24] MEDS: Allopurinol 100 MG Tablet PO (08:16)
[2020-02-24] MEDS: Gabapentin 100 MG Capsule PO ×2 (08:16→17:30)
[2020-02-24] MEDS: Ferrous Sulfate 325 MG Tablet PO (08:16)
[2020-02-24] MEDS: Calcium Carb/Vitamin D 1 TABLET Tablet PO (08:16)
[2020-02-24 08:57] LABS: International Normalized Ratio 1.4; Prothrombin Time (Protime)PT. 16.6 SECONDS (11.7-14.9)
[2020-02-24] MEDS: traMADol 50 MG Tablet PO (08:58)
--- NOTE | 2020-02-24 11:09 | NURSING ---
called and updated pt family.
[2020-02-24 12:45] VITALS: PULSE 107; RESP 16; O2SAT 95
[2020-02-24 13:12] VITALS: BP 98/62; PULSE 112; RESP 14; TEMP 37.1; O2SAT 100
--- NOTE | 2020-02-24 13:38 | NURSING ---
called daughter Lori back to update her on a change in appointments with and that i still haven't heard from office on confirming appointment and blood draw orders that Lori stated that wanted. the daughter then stated i guess our business is done and hung up on me. reported to RN and Manda,social media manager.
--- NOTE | 2020-02-24 16:11 | NURSING ---
Resident and family notified of staff member testing positive for COVID.
[2020-02-24 23:24] VITALS: BP 97/65; PULSE 111; RESP 16; TEMP 36.6; O2SAT 96
[2020-02-25 05:00] VITALS: BP 92/56; PULSE 111; RESP 16; TEMP 36.6; O2SAT 93
[2020-02-25] MEDS: Magnesium Chloride 64 MG Delay Rel.Tablet 128 MG PO (05:32)
[2020-02-25] MEDS: Senna/Docusate Sodium 1 Tablet 2 TABLET PO ×2 (05:32→17:33)
[2020-02-25] MEDS: Bumetanide 2 MG Tablet 1 MG PO (05:32)
[2020-02-25] MEDS: Multivitamin (Healthy Eyes) Capsule 1 CAP PO (05:33)
[2020-02-25] MEDS: Lidocaine 5% Patch 2 PATCH TOPICAL (05:35)
[2020-02-25] MEDS: Polyethylene Glycol 3350 17 GM PACKET PO (05:35)
[2020-02-25] MEDS: Menthol/Lanolin/Calamine/Znox 113 GM Tube 1 APPLIC TOPICAL ×3 (05:39→19:44)
--- NOTE | 2020-02-25 06:08 | NURSING ---
Patient seems to be more lethargic and fatigue more held morning blood pressure medication due to Bp-92/56, HR-111, RR-16, Sp02- 93% RA, Temp- 97.8 oral. Patient states that she feels olkay but patient requires more assistance with ADL's at hs. Patient cheeks and nose are red. Made RN's aware.
[2020-02-25] MEDS: Acetaminophen 500 MG Tablet 1000 MG PO (06:54)
[2020-02-25] MEDS: Calcium Carb/Vitamin D 1 TABLET Tablet PO (08:12)
[2020-02-25] MEDS: Gabapentin 100 MG Capsule PO ×2 (08:12→17:33)
[2020-02-25] MEDS: Allopurinol 100 MG Tablet PO (08:12)
[2020-02-25] MEDS: Ferrous Sulfate 325 MG Tablet PO (08:12)
[2020-02-25] MEDS: Tamsulosin HCl 0.4 MG Capsule PO (08:12)
[2020-02-25 08:13] VITALS: BP 87/52
[2020-02-25 08:51] LABS: Absolute Lymphocyte Count 0.45 X10^3/uL (0.83-4.51); Absolute Neutrophil Count 9.2 X10^3/uL (2.0-7.7); Basophil# 0.01 X10^3/uL; Basophil% 0.1 % (0-1); Eosinophil# 0.03 X10^3/uL; Eosinophils% 0.3 % (0-5); Hematocrit 34.3 % (37-47); Hemoglobin 10.7 g/dL (12.0-15.0); Lymphocyte # 0.45 X10^3/ul (4.0); Lymphocyte % 4.4 % (19-41); Mean Corp Hgb Conc 31.2 g/dL (32-36); Mean Corpuscular Hgb 28.6 pg (27.0-32.0); Mean Corpuscular Volume 91.7 fL (81-99); Mean Platelet Vol. 9.8 fl (6.2-12.0); Monocyte% 4.8 % (0-10); NRBC Flagged by Analyzer 0 % (0-5); Neutrophil # 9.21 X10^3/uL (2.7-7.7); Neutrophil % 89.2 % (47-70); POSITIVE DIFFERENTIAL YES; Platelet Count 192 K/mm3 (150-450); RBC Distribution Width CV 15.6 % (11.6-14.6); RBC Distribution Width SD 52.6 fl (35.1-43.9); Red Blood Count 3.74 M/mm3 (4.2-5.4); White Blood Count 10.3 K/mm3 (4.4-11.0)
[2020-02-25 08:52] LABS: Differential Indicated SCAN CRITERIA MET
[2020-02-25 09:04] LABS: Anion Gap 7 (5-15); BUN 44 mg/dL (7-18); BUN/Creat Ratio 22.1 RATIO (10-20); Calcium,Total 8.7 mg/dL (8.5-10.1); Chloride 103 mmol/L (98-107); Creatinine, Serum 1.99 mg/dL (0.55-1.02); EST Glomerular Filtration Rate 25 mL/min (>60); Est Glom Filt Rate - Afr Amer 31 mL/min (>60); Estimated Creatinine Clearance 18.94 ml/min; Glucose 163 mg/dL (74-106); Potassium 4.3 mmol/L (3.5-5.1); Sodium Level 136 mmol/L (136-145)
[2020-02-25 09:19] LABS: Anisocytosis 1+; Platelet Estimate ADEQUATE (ADEQ); Red Cell Morphology N CHROM NORMAL (NORM C&C)
[2020-02-25 10:00] VITALS: RESP 16; O2SAT 96
[2020-02-25 14:15] VITALS: BP 99/57; PULSE 108; RESP 16; TEMP 36.7; O2SAT 95
--- NOTE | 2020-02-25 17:15 | RAD_ITS ---
STUDY: X-RAY CHEST REASON FOR EXAM: Female, 84 years old. COUGH TECHNIQUE: Frontal and lateral views COMPARISON: 06/13/2018 FINDINGS: Stable sternotomy wires and left-sided pacemaker. The lungs are expanded. Mild interstitial prominence. Normal size heart. Normal mediastinum. Stable left hilar calcification. Normal visualized pulmonary arteries. Calcified aortic arch and descending thoracic aorta. Degenerative changes of the thoracic spine. Normal visualized ribs, clavicles, and shoulders. There is no demonstrated abnormality of the visualized soft tissue structures of the upper abdomen. RAD/Chest PA and Lateral IMPRESSION: Mild interstitial prominence. Electronically Signed: Lawrence Hutchison DO at 21:08 EST Tel [phone], Service support ,
[2020-02-25 18:33] LABS: Bacteria 0 SEEN /hpf (None Seen); Mucous, Urine 0 SEEN /hpf (<or=2+); Red Blood Cells-Urine 0 SEEN /hpf (0-5); Squamous Epithelial Cells - UA 0 SEEN /hpf (5-10); White Blood Cells 0 SEEN /hpf (0-5)
[2020-02-25 19:27] LABS: Color, Urine Yellow (Yellow); Glucose, Dipstick Normal (Normal); Ketone-Dipstick Negative (Negative); Leukocyte Esterase-Dipstick Negative /ul (Negative); Nitrite-Dipstick Negative (Negative); Occult Blood-Urine Negative /ul (Negative); Protein-Dipstick 15 mg/dl (Negative); Urine Bilirubin Dipstick Negative (Negative); Urine Clarity Clear (Clear); Urine Urobilinogen Normal (Normal)
[2020-02-25] MEDS: oxyCODONE 5 MG Tablet PO (19:43)
[2020-02-26] MEDS: Lidocaine 5% Patch 2 PATCH TOPICAL (04:53)
[2020-02-26] MEDS: Polyethylene Glycol 3350 17 GM PACKET PO (04:53)
[2020-02-26] MEDS: Senna/Docusate Sodium 1 Tablet 2 TABLET PO ×2 (04:54→17:48)
[2020-02-26] MEDS: Magnesium Chloride 64 MG Delay Rel.Tablet 128 MG PO (04:54)
[2020-02-26] MEDS: Amiodarone 200 MG Tablet PO (04:54)
[2020-02-26] MEDS: Bumetanide 2 MG Tablet 1 MG PO (04:54)
[2020-02-26 05:00] VITALS: BP 104/64; PULSE 124; RESP 18; TEMP 36.9; O2SAT 93
[2020-02-26 05:01] VITALS: BP 104/64; PULSE 124
[2020-02-26] MEDS: Metoprolol(XL)Succ 50 MG Tablet PO (05:01)
[2020-02-26] MEDS: Multivitamin (Healthy Eyes) Capsule 1 CAP PO (05:01)
[2020-02-26] MEDS: Menthol/Lanolin/Calamine/Znox 113 GM Tube 1 APPLIC TOPICAL ×3 (05:02→20:53)
[2020-02-26] MEDS: Acetaminophen 500 MG Tablet 1000 MG PO (08:05)
[2020-02-26] MEDS: Ferrous Sulfate 325 MG Tablet PO (08:06)
[2020-02-26] MEDS: Allopurinol 100 MG Tablet PO (08:06)
[2020-02-26] MEDS: Gabapentin 100 MG Capsule PO ×2 (08:06→17:48)
[2020-02-26] MEDS: Calcium Carb/Vitamin D 1 TABLET Tablet PO (08:06)
[2020-02-26] MEDS: Tamsulosin HCl 0.4 MG Capsule PO (08:06)
[2020-02-26] MEDS: 0.9% Saline Lock 10 ML Syringe IV (10:13)
[2020-02-26 10:15] VITALS: PULSE 114; RESP 16; O2SAT 96
[2020-02-26 14:14] VITALS: BP 86/55; PULSE 102; RESP 16; TEMP 36.3; O2SAT 93
--- NOTE | 2020-02-26 15:46 | NURSING ---
mepilex rolling up on coccyx, removed. carlos applied, freq positioning.
[2020-02-26 17:44] VITALS: BP 103/44; PULSE 114
[2020-02-26] MEDS: traMADol 50 MG Tablet PO (20:43)
[2020-02-27] MEDS: Lidocaine 5% Patch 2 PATCH TOPICAL (06:47)
[2020-02-27] MEDS: Multivitamin (Healthy Eyes) Capsule 1 CAP PO (06:49)
[2020-02-27] MEDS: Bumetanide 2 MG Tablet 1 MG PO (06:50)
[2020-02-27] MEDS: Amiodarone 200 MG Tablet PO (06:53)
[2020-02-27 06:57] VITALS: BP 94/67; PULSE 116
[2020-02-27] MEDS: Menthol/Lanolin/Calamine/Znox 113 GM Tube 1 APPLIC TOPICAL ×3 (06:58→21:30)
[2020-02-27] MEDS: Ferrous Sulfate 325 MG Tablet PO (07:57)
[2020-02-27] MEDS: Gabapentin 100 MG Capsule PO ×2 (07:57→17:42)
[2020-02-27] MEDS: Tamsulosin HCl 0.4 MG Capsule PO (07:57)
[2020-02-27] MEDS: Magnesium Chloride 64 MG Delay Rel.Tablet 128 MG PO (07:57)
[2020-02-27] MEDS: Allopurinol 100 MG Tablet PO (07:57)
[2020-02-27] MEDS: Calcium Carb/Vitamin D 1 TABLET Tablet PO (07:57)
--- NOTE | 2020-02-27 10:21 | NURSING ---
Talked with pt's daughter to give update. Pt is requesting crystal light packets daughter stated she will bring some in, expressed concerns d/t pt's new found confusion over this past week. This nurse went over labs, medications, U/a C&S, VS and CXR. Daughter is requesting oxycodone be d/c'd stating it is to strong for pt and pt is agreeable to this. Daughter was made aware of BP's and stated that it is ok and Dr. Tran, her bearing machine operator wants her on these BP meds for her heart.
[2020-02-27] MEDS: Acetaminophen 500 MG Tablet 1000 MG PO (11:13)
[2020-02-27 13:51] VITALS: BP 87/54; PULSE 112; RESP 14; TEMP 35.5; O2SAT 94
[2020-02-27 15:17] VITALS: PULSE 105; RESP 16; O2SAT 97
[2020-02-27] MEDS: 0.9% Saline Lock 10 ML Syringe IV (18:14)
[2020-02-28] MEDS: Acetaminophen 500 MG Tablet 1000 MG PO ×3 (01:13→21:06)
[2020-02-28] MEDS: traMADol 50 MG Tablet PO ×3 (01:55→17:35)
[2020-02-28 06:09] VITALS: BP 94/66; PULSE 106; RESP 18; TEMP 36.6; O2SAT 95
[2020-02-28] MEDS: Lidocaine 5% Patch 2 PATCH TOPICAL (06:10)
[2020-02-28] MEDS: Magnesium Chloride 64 MG Delay Rel.Tablet 128 MG PO (06:11)
[2020-02-28] MEDS: Bumetanide 2 MG Tablet 1 MG PO (06:13)
[2020-02-28] MEDS: Multivitamin (Healthy Eyes) Capsule 1 CAP PO (06:14)
[2020-02-28] MEDS: Amiodarone 200 MG Tablet PO (06:14)
[2020-02-28] MEDS: Menthol/Lanolin/Calamine/Znox 113 GM Tube 1 APPLIC TOPICAL ×3 (06:14→21:07)
[2020-02-28 06:25] VITALS: PULSE 106
[2020-02-28] MEDS: Calcium Carb/Vitamin D 1 TABLET Tablet PO (07:53)
[2020-02-28] MEDS: Gabapentin 100 MG Capsule PO ×2 (07:53→17:29)
[2020-02-28] MEDS: Allopurinol 100 MG Tablet PO (07:53)
[2020-02-28] MEDS: Tamsulosin HCl 0.4 MG Capsule PO (07:53)
[2020-02-28] MEDS: Ferrous Sulfate 325 MG Tablet PO (07:54)
[2020-02-28 08:13] LABS: Anion Gap 7 (5-15); BUN 50 mg/dL (7-18); BUN/Creat Ratio 24.3 RATIO (10-20); Calcium,Total 8.7 mg/dL (8.5-10.1); Chloride 101 mmol/L (98-107); Creatinine, Serum 2.06 mg/dL (0.55-1.02); EST Glomerular Filtration Rate 24 mL/min (>60); Est Glom Filt Rate - Afr Amer 30 mL/min (>60); Estimated Creatinine Clearance 18.29 ml/min; Glucose 138 mg/dL (74-106); Potassium 4.6 mmol/L (3.5-5.1); Sodium Level 133 mmol/L (136-145)
[2020-02-28 08:44] LABS: Absolute Lymphocyte Count 0.72 X10^3/uL (0.83-4.51); Absolute Neutrophil Count 11.8 X10^3/uL (2.0-7.7); Basophil# 0.03 X10^3/uL; Basophil% 0.2 % (0-1); Eosinophil# 0.07 X10^3/uL; Eosinophils% 0.5 % (0-5); Hematocrit 35.7 % (37-47); Hemoglobin 10.9 g/dL (12.0-15.0); Lymphocyte # 0.72 X10^3/ul (4.0); Lymphocyte % 5.4 % (19-41); Mean Corp Hgb Conc 30.5 g/dL (32-36); Mean Corpuscular Hgb 27.9 pg (27.0-32.0); Mean Corpuscular Volume 91.3 fL (81-99); Mean Platelet Vol. 9.8 fl (6.2-12.0); Monocyte# 0.65 X10^3/uL; Monocyte% 4.8 % (0-10); NRBC Flagged by Analyzer 0 % (0-5); Neutrophil % 87.9 % (47-70); Platelet Count 237 K/mm3 (150-450); RBC Distribution Width CV 15.9 % (11.6-14.6); RBC Distribution Width SD 52.2 fl (35.1-43.9); Red Blood Count 3.91 M/mm3 (4.2-5.4); White Blood Count 13.4 K/mm3 (4.4-11.0)
[2020-02-28] MEDS: 0.9% Saline Lock 10 ML Syringe IV (11:12)
[2020-02-28 13:17] VITALS: BP 125/54; PULSE 117; RESP 17; TEMP 36.2; O2SAT 96
[2020-02-29] MEDS: traMADol 50 MG Tablet PO ×2 (00:02→17:38)
[2020-02-29 05:00] VITALS: BP 96/58; PULSE 121; RESP 16; TEMP 36.2; O2SAT 97
[2020-02-29] MEDS: Bumetanide 2 MG Tablet 1 MG PO (05:52)
[2020-02-29] MEDS: Lidocaine 5% Patch 2 PATCH TOPICAL (05:52)
[2020-02-29] MEDS: Magnesium Chloride 64 MG Delay Rel.Tablet 128 MG PO (05:53)
[2020-02-29] MEDS: Multivitamin (Healthy Eyes) Capsule 1 CAP PO (05:53)
[2020-02-29] MEDS: Acetaminophen 500 MG Tablet 1000 MG PO ×3 (05:53→21:20)
[2020-02-29 05:54] VITALS: PULSE 121
[2020-02-29] MEDS: Metoprolol(XL)Succ 50 MG Tablet PO (05:54)
[2020-02-29] MEDS: Amiodarone 200 MG Tablet PO (05:55)
[2020-02-29] MEDS: Menthol/Lanolin/Calamine/Znox 113 GM Tube 1 APPLIC TOPICAL ×3 (05:55→21:22)
[2020-02-29] MEDS: Gabapentin 100 MG Capsule PO ×2 (07:54→17:34)
[2020-02-29] MEDS: Calcium Carb/Vitamin D 1 TABLET Tablet PO (07:55)
[2020-02-29] MEDS: Allopurinol 100 MG Tablet PO (07:55)
[2020-02-29] MEDS: Ferrous Sulfate 325 MG Tablet PO (07:55)
[2020-02-29] MEDS: Tamsulosin HCl 0.4 MG Capsule PO (07:56)
[2020-02-29 13:05] VITALS: BP 94/64; PULSE 107; RESP 17; TEMP 36.6; O2SAT 97
[2020-03-01 05:00] VITALS: BP 93/64; PULSE 110; RESP 16; TEMP 36.4; O2SAT 94
[2020-03-01] MEDS: Multivitamin (Healthy Eyes) Capsule 1 CAP PO (05:14)
[2020-03-01] MEDS: Bumetanide 2 MG Tablet 1 MG PO (05:14)
[2020-03-01 05:15] VITALS: PULSE 110
[2020-03-01] MEDS: Metoprolol(XL)Succ 50 MG Tablet PO (05:15)
[2020-03-01] MEDS: Acetaminophen 500 MG Tablet 1000 MG PO ×3 (05:15→20:27)
[2020-03-01] MEDS: Menthol/Lanolin/Calamine/Znox 113 GM Tube 1 APPLIC TOPICAL ×3 (05:15→20:29)
[2020-03-01] MEDS: Lidocaine 5% Patch 2 PATCH TOPICAL (05:15)
[2020-03-01] MEDS: Amiodarone 200 MG Tablet PO (05:15)
[2020-03-01] MEDS: Magnesium Chloride 64 MG Delay Rel.Tablet 128 MG PO (05:15)
[2020-03-01] MEDS: Metolazone 2.5 MG Tablet PO (05:23)
[2020-03-01 06:24] LABS: Albumin, Serum 2.5 g/dL (3.2-5.0); BUN 54 mg/dL (7-18); BUN/Creat Ratio 24.7 RATIO (10-20); Calcium,Total 8.8 mg/dL (8.5-10.1); Chloride 101 mmol/L (98-107); Creatinine, Serum 2.19 mg/dL (0.55-1.02); EST Glomerular Filtration Rate 23 mL/min (>60); Est Glom Filt Rate - Afr Amer 28 mL/min (>60); Estimated Creatinine Clearance 17.21 ml/min; Glucose 112 mg/dL (74-106); Phosphorus 3.8 mg/dL (2.5-4.9); Potassium 4.8 mmol/L (3.5-5.1); Sodium Level 132 mmol/L (136-145)
[2020-03-01] MEDS: traMADol 50 MG Tablet PO (08:41)
[2020-03-01] MEDS: Tamsulosin HCl 0.4 MG Capsule PO (08:43)
[2020-03-01] MEDS: Ferrous Sulfate 325 MG Tablet PO (08:43)
[2020-03-01] MEDS: Calcium Carb/Vitamin D 1 TABLET Tablet PO (08:43)
[2020-03-01] MEDS: Allopurinol 100 MG Tablet PO (08:43)
[2020-03-01] MEDS: Gabapentin 100 MG Capsule PO ×2 (08:43→17:32)
[2020-03-01 08:48] LABS: PTHIN 119.8 pg/mL (18.4-80.1)
[2020-03-01 10:40] VITALS: PULSE 105; RESP 18; O2SAT 93
[2020-03-01 12:11] VITALS: BP 91/55; PULSE 74; RESP 16; TEMP 36.6; O2SAT 98
--- NOTE | 2020-03-01 14:40 | NURSING ---
updated daughter on pt. daughter asked questions about up coming appointments. one appointment daughter did not know about with [facility] and wanted to know why. this nurse told daughter i would find out and call her back. daughter also asked why pt bottom was hurting so bad. explained to daughter she had a sore from moisture. daughter stated i was never told she had a sore. apologized to daughter about her not knowing. daughter also asked if see could get on pt portal to see info on pt. this nurse stated that the social secretary may be able to help her with that and gave phone number. rn aware.
[2020-03-01] MEDS: Senna/Docusate Sodium 1 Tablet 2 TABLET PO (17:31)
[2020-03-02] MEDS: traMADol 50 MG Tablet PO ×2 (02:32→11:40)
[2020-03-02 04:14] VITALS: BP 101/54; PULSE 97; RESP 18; TEMP 36.7; O2SAT 95
[2020-03-02] MEDS: Senna/Docusate Sodium 1 Tablet 2 TABLET PO ×2 (04:14→17:13)
[2020-03-02] MEDS: Magnesium Chloride 64 MG Delay Rel.Tablet 128 MG PO (04:14)
[2020-03-02 04:15] VITALS: BP 101/54; PULSE 97
[2020-03-02] MEDS: Multivitamin (Healthy Eyes) Capsule 1 CAP PO (04:15)
[2020-03-02] MEDS: Bumetanide 2 MG Tablet 1 MG PO (04:15)
[2020-03-02] MEDS: Metoprolol(XL)Succ 50 MG Tablet PO (04:15)
[2020-03-02] MEDS: Amiodarone 200 MG Tablet PO (04:15)
[2020-03-02] MEDS: Menthol/Lanolin/Calamine/Znox 113 GM Tube 1 APPLIC TOPICAL ×3 (04:17→21:29)
[2020-03-02] MEDS: Lidocaine 5% Patch 2 PATCH TOPICAL (04:18)
[2020-03-02] MEDS: Acetaminophen 500 MG Tablet 1000 MG PO ×3 (04:28→21:29)
[2020-03-02 05:52] LABS: International Normalized Ratio 1.4; Prothrombin Time (Protime)PT. 16.4 SECONDS (11.7-14.9)
[2020-03-02] MEDS: Ferrous Sulfate 325 MG Tablet PO (08:49)
[2020-03-02] MEDS: Gabapentin 100 MG Capsule PO ×2 (08:49→17:13)
[2020-03-02] MEDS: Tamsulosin HCl 0.4 MG Capsule PO (08:49)
[2020-03-02] MEDS: Calcium Carb/Vitamin D 1 TABLET Tablet PO (08:49)
[2020-03-02] MEDS: Allopurinol 100 MG Tablet PO (08:49)
--- NOTE | 2020-03-02 09:32 | VDLE_ITS ---
Reason For Study: Pain RIGHT GSV is normal. CFV is compressible, spontaneous, phasic, competent and demonstrates normal augmentation. FV is compressible, spontaneous, phasic, competent and demonstrates normal augmentation. POP V is compressible, spontaneous, phasic, competent and demonstrates normal augmentation. T/P Trunk is compressible. PTV is compressible. RT PerV is compressible. Procedure This is a venous duplex using B-mode, color flow and spectral Doppler. Exam performed portable in patient room. A preliminary report was called and/or faxed to TCU. Interpretation Summary Deep veins of the right lower extremity are patent and compressible segmentally. There is no evidence of right lower extremity deep vein thrombosis. Valvular competence appears intact within the proximal deep venous system on the right . The right great saphenous vein appears patent and compressible segmentally. Ordering Physician: Mikie Arreguin Referring Physician: Gilberto Riso Performed By: Lauren Bridges RVT
--- NOTE | 2020-03-02 10:54 | NURSING ---
THIS NURSE CALLED PT DAUGHTER,DAUGHTER WANTING ANSWERS ON APPOINTMENTS AND ASKING ABOUT PT MEDS. THIS NURSE GAVE ANSWERS TO DAUGHTER AND WAS STILL WORKING ON A FEW OTHERS AND TOLD DAUGHTER SOON I FIND OUT I WOULD LET HER KNOW. ALSO TOLD DAUGHTER PT WILL HAVE A DOPPLER DONE TODAY DUE TO PT COMPLAINING OF PAIN IN RIGHT CALF AND WILL GET BACK WITH HER WHEN I KNOW THE RESULTS. DAUGHTER ALSO WANTED TO TALK TO AND THIS NURSE LEFT MESSAGE TO HIM. DAUGHTER COMPLAINING AND MAD THAT SHE IS NOT UPDATED EVERY DAY ON HER MOM. TOLD DAUGHTER I WOULD LET STAFF KNOW SHE WANTS UP DATED EVERY DAY. DAUGHTER ALSO STATED THAT ALOT OF TIMES SHE HAS TO CALL FIRST BEFORE ANY ONE CALLS HER BACK. THIS NURSE STATED TO DAUGHTER I WILL CALL HER LATER IN DAY WITH UP DATES UNLESS IT WAS SOME THING THAT NEEDED ATTENTION OR SERIOUS IT WOULD BE IMMEDIATELY. REPORTED TO RN AND NEAL RHODES.
--- NOTE | 2020-03-02 11:51 | NURSING ---
PT WEIGHT 181.4. PT HAS TAKEN THE ZAROXOLYN ALREADY THIS WEEK AND PRESCRIBED ONLY FOR ONCE A WEEK. REPORTED TO RN
[2020-03-02 13:14] VITALS: BP 102/68; PULSE 105; RESP 14; TEMP 36.5; O2SAT 92
[2020-03-02 13:15] VITALS: BP 102/68; PULSE 105; RESP 14; TEMP 36.5; O2SAT 92
[2020-03-02 13:30] VITALS: PULSE 106; RESP 18; O2SAT 96
--- NOTE | 2020-03-02 14:59 | NURSING ---
called daughter back and updated her on pt. Doppler was negative and asked daughter if pt has had a problem with gout. daughter stated yes! reported to rn and left note for .
--- NOTE | 2020-03-02 15:08 | NURSING ---
daughter called back and wants a uric acid done on her mom. rn aware and note left for
[2020-03-02 18:18] LABS: Uric Acid 8.1 mg/dL (2.6-6.0)
--- NOTE | 2020-03-02 19:27 | NURSING ---
daughter called back this evening and asked if seen her mom and asked what he was going to do for the pt and if he ordered the uric acid test. this nurse stated yes did see the pt and did order the uric acid test and put in a order for medrol pk. daughter asked the result of test,info given and told daughter dr. landrum will be notified. daughter stated thank you and i will talk to you tomorrow.rn aware
[2020-03-02] MEDS: MethylPREDNISolone DosePak 4 MG BOX PO (21:25)
[2020-03-02 21:35] VITALS: BP 91/62; PULSE 93; RESP 16; TEMP 36.7; O2SAT 96
[2020-03-03 03:44] VITALS: BP 90/60; PULSE 71; RESP 16; TEMP 36.3; O2SAT 94
[2020-03-03] MEDS: Senna/Docusate Sodium 1 Tablet 2 TABLET PO (05:23)
[2020-03-03 05:24] VITALS: BP 90/60; PULSE 71
[2020-03-03] MEDS: Bumetanide 2 MG Tablet 1 MG PO (05:24)
[2020-03-03] MEDS: Multivitamin (Healthy Eyes) Capsule 1 CAP PO (05:24)
[2020-03-03] MEDS: Magnesium Chloride 64 MG Delay Rel.Tablet 128 MG PO (05:24)
[2020-03-03] MEDS: Amiodarone 200 MG Tablet PO (05:24)
[2020-03-03] MEDS: Polyethylene Glycol 3350 17 GM PACKET PO (05:26)
[2020-03-03] MEDS: Menthol/Lanolin/Calamine/Znox 113 GM Tube 1 APPLIC TOPICAL ×3 (05:26→20:29)
[2020-03-03] MEDS: Lidocaine 5% Patch 2 PATCH TOPICAL (05:26)
[2020-03-03] MEDS: Acetaminophen 500 MG Tablet 1000 MG PO ×3 (05:28→20:25)
[2020-03-03] MEDS: MethylPREDNISolone DosePak 4 MG BOX PO ×4 (09:25→20:29)
[2020-03-03] MEDS: Gabapentin 100 MG Capsule PO ×2 (09:25→17:38)
[2020-03-03] MEDS: Ferrous Sulfate 325 MG Tablet PO (09:25)
[2020-03-03] MEDS: Calcium Carb/Vitamin D 1 TABLET Tablet PO (09:25)
[2020-03-03] MEDS: Tamsulosin HCl 0.4 MG Capsule PO (09:26)
[2020-03-03] MEDS: Allopurinol 100 MG Tablet PO (09:26)
[2020-03-03] MEDS: traMADol 50 MG Tablet PO (11:56)
[2020-03-03 14:00] VITALS: BP 99/63; PULSE 67; RESP 16; TEMP 36.4; O2SAT 95
--- NOTE | 2020-03-03 17:03 | NURSING ---
UPDATED DAUGHTER ON PT.
[2020-03-03 20:17] VITALS: PULSE 71; RESP 18; O2SAT 98
[2020-03-04] MEDS: traMADol 50 MG Tablet PO ×3 (00:19→16:59)
[2020-03-04 04:04] VITALS: BP 80/54; PULSE 70; RESP 18; TEMP 36.6; O2SAT 95
[2020-03-04] MEDS: Lidocaine 5% Patch 2 PATCH TOPICAL (04:08)
[2020-03-04] MEDS: Multivitamin (Healthy Eyes) Capsule 1 CAP PO (04:09)
[2020-03-04] MEDS: Magnesium Chloride 64 MG Delay Rel.Tablet 128 MG PO (04:09)
[2020-03-04] MEDS: Acetaminophen 500 MG Tablet 1000 MG PO ×3 (04:09→21:38)
[2020-03-04] MEDS: Amiodarone 200 MG Tablet PO (04:09)
[2020-03-04] MEDS: Bumetanide 2 MG Tablet 1 MG PO (04:10)
[2020-03-04 04:11] VITALS: BP 80/54; PULSE 70
[2020-03-04] MEDS: Menthol/Lanolin/Calamine/Znox 113 GM Tube 1 APPLIC TOPICAL ×3 (04:13→21:15)
[2020-03-04] MEDS: Tamsulosin HCl 0.4 MG Capsule PO (08:16)
[2020-03-04] MEDS: Gabapentin 100 MG Capsule PO ×2 (08:17→17:00)
[2020-03-04] MEDS: MethylPREDNISolone DosePak 4 MG BOX PO ×4 (08:17→21:17)
[2020-03-04] MEDS: Calcium Carb/Vitamin D 1 TABLET Tablet PO (08:17)
[2020-03-04] MEDS: Allopurinol 100 MG Tablet PO (08:18)
[2020-03-04] MEDS: Ferrous Sulfate 325 MG Tablet PO (08:18)
[2020-03-04 10:00] VITALS: RESP 18
[2020-03-04 14:00] VITALS: BP 96/56; PULSE 70; RESP 14; TEMP 36.1; O2SAT 96
--- NOTE | 2020-03-04 15:07 | NURSING ---
Talked with daughter Joann regarding hematology appointment being reschedule and current tx plan. Joann verbalized understanding.
--- NOTE | 2020-03-04 15:09 | NURSING ---
Pt updated on two positive cases of Covid in staff members tested on Thursday 03/01
--- NOTE | 2020-03-04 15:10 | NURSING ---
Resident and family notified of staff members testing positive for COVID.
--- NOTE | 2020-03-04 16:37 | NURSING ---
[facility] and they state they have talked to [facility] and the labs that were ordered on the 02/24/20 are the correct ones and that no new labs need to be drawn at this time.
[2020-03-04] MEDS: Senna/Docusate Sodium 1 Tablet 2 TABLET PO (17:00)
[2020-03-05] MEDS: traMADol 50 MG Tablet PO ×2 (01:42→09:34)
[2020-03-05] MEDS: Amiodarone 200 MG Tablet PO (04:41)
[2020-03-05 04:42] VITALS: BP 91/42; PULSE 69
[2020-03-05] MEDS: Magnesium Chloride 64 MG Delay Rel.Tablet 128 MG PO (04:42)
[2020-03-05] MEDS: Metoprolol(XL)Succ 50 MG Tablet PO (04:42)
[2020-03-05] MEDS: Multivitamin (Healthy Eyes) Capsule 1 CAP PO (04:42)
[2020-03-05] MEDS: Senna/Docusate Sodium 1 Tablet 2 TABLET PO (04:43)
[2020-03-05] MEDS: Polyethylene Glycol 3350 17 GM PACKET PO (04:43)
[2020-03-05] MEDS: Lidocaine 5% Patch 2 PATCH TOPICAL (04:45)
[2020-03-05] MEDS: Acetaminophen 500 MG Tablet 1000 MG PO ×3 (04:48→21:01)
[2020-03-05] MEDS: Menthol/Lanolin/Calamine/Znox 113 GM Tube 1 APPLIC TOPICAL ×3 (04:48→20:58)
[2020-03-05 04:52] VITALS: BP 91/42; PULSE 69; RESP 16; TEMP 36.1; O2SAT 97
[2020-03-05] MEDS: Bumetanide 2 MG Tablet 1 MG PO (06:31)
[2020-03-05] MEDS: Allopurinol 100 MG Tablet PO (08:19)
[2020-03-05] MEDS: Calcium Carb/Vitamin D 1 TABLET Tablet PO (08:19)
[2020-03-05] MEDS: Gabapentin 100 MG Capsule PO ×2 (08:20→17:24)
[2020-03-05] MEDS: Tamsulosin HCl 0.4 MG Capsule PO (08:20)
[2020-03-05] MEDS: Ferrous Sulfate 325 MG Tablet PO (08:20)
[2020-03-05] MEDS: MethylPREDNISolone DosePak 4 MG BOX PO ×3 (08:20→20:58)
--- NOTE | 2020-03-05 13:12 | NURSING ---
Mepilex applied to open area to coccyx today, pt c/o of pain to bottom and could not tolerate sitting in recliner, pt returned to bed and turned side to side Q2h to alleviate pressure. RN updated and agreeable to mepilex application, pt is continent.
[2020-03-05 14:43] VITALS: BP 106/60; PULSE 63; RESP 16; TEMP 37; O2SAT 96
[2020-03-06] MEDS: traMADol 50 MG Tablet PO ×3 (01:46→17:00)
[2020-03-06 04:45] VITALS: BP 103/40; PULSE 64; RESP 18; TEMP 36.6; O2SAT 95
[2020-03-06] MEDS: Lidocaine 5% Patch 2 PATCH TOPICAL (04:55)
[2020-03-06] MEDS: Bumetanide 2 MG Tablet 1 MG PO (04:55)
[2020-03-06 04:56] VITALS: BP 103/40; PULSE 64
[2020-03-06] MEDS: Metoprolol(XL)Succ 50 MG Tablet PO (04:56)
[2020-03-06] MEDS: Amiodarone 200 MG Tablet PO (04:56)
[2020-03-06] MEDS: Magnesium Chloride 64 MG Delay Rel.Tablet 128 MG PO (04:56)
[2020-03-06] MEDS: Multivitamin (Healthy Eyes) Capsule 1 CAP PO (04:56)
[2020-03-06] MEDS: Acetaminophen 500 MG Tablet 1000 MG PO ×3 (04:59→20:20)
[2020-03-06] MEDS: Menthol/Lanolin/Calamine/Znox 113 GM Tube 1 APPLIC TOPICAL ×3 (05:00→20:25)
[2020-03-06] MEDS: Calcium Carb/Vitamin D 1 TABLET Tablet PO (08:19)
[2020-03-06] MEDS: Ferrous Sulfate 325 MG Tablet PO (08:19)
[2020-03-06] MEDS: MethylPREDNISolone DosePak 4 MG BOX PO ×2 (08:19→20:14)
[2020-03-06] MEDS: Gabapentin 100 MG Capsule PO ×2 (08:19→16:59)
[2020-03-06] MEDS: Tamsulosin HCl 0.4 MG Capsule PO (08:20)
[2020-03-06] MEDS: Allopurinol 100 MG Tablet PO (08:20)
[2020-03-06 08:27] LABS: Absolute Lymphocyte Count 0.38 X10^3/uL (0.83-4.51); Absolute Neutrophil Count 13.2 X10^3/uL (2.0-7.7); Basophil# 0.02 X10^3/uL; Basophil% 0.1 % (0-1); Hematocrit 38.4 % (37-47); Hemoglobin 11.2 g/dL (12.0-15.0); Lymphocyte # 0.38 X10^3/ul (4.0); Lymphocyte % 2.6 % (19-41); Mean Corp Hgb Conc 29.2 g/dL (32-36); Mean Corpuscular Hgb 27.9 pg (27.0-32.0); Mean Corpuscular Volume 95.8 fL (81-99); Mean Platelet Vol. 10.3 fl (6.2-12.0); Monocyte% 4.2 % (0-10); NRBC Flagged by Analyzer 0 % (0-5); Neutrophil # 13.18 X10^3/uL (2.7-7.7); Neutrophil % 91.9 % (47-70); POSITIVE DIFFERENTIAL YES; Platelet Count 143 K/mm3 (150-450); RBC Distribution Width CV 17.7 % (11.6-14.6); RBC Distribution Width SD 57.6 fl (35.1-43.9); Red Blood Count 4.01 M/mm3 (4.2-5.4); White Blood Count 14.4 K/mm3 (4.4-11.0)
[2020-03-06 08:35] LABS: Anion Gap 9 (5-15); BUN 89 mg/dL (7-18); BUN/Creat Ratio 34.2 RATIO (10-20); Calcium,Total 8.6 mg/dL (8.5-10.1); Chloride 102 mmol/L (98-107); EST Glomerular Filtration Rate 19 mL/min (>60); Est Glom Filt Rate - Afr Amer 23 mL/min (>60); Estimated Creatinine Clearance 14.49 ml/min; Glucose 139 mg/dL (74-106); Potassium 4.7 mmol/L (3.5-5.1); Sodium Level 133 mmol/L (136-145)
[2020-03-06 08:56] LABS: Differential Indicated SCAN CRITERIA MET
[2020-03-06 09:28] LABS: Differential Comment SCANNED
[2020-03-06 10:00] VITALS: PULSE 70; RESP 18; O2SAT 98
[2020-03-06 13:18] VITALS: BP 91/49; PULSE 65; RESP 14; TEMP 35.9; O2SAT 94
--- NOTE | 2020-03-06 13:27 | NURSING ---
Called daughter to give update.
[2020-03-06] MEDS: Senna/Docusate Sodium 1 Tablet 2 TABLET PO (17:00)
[2020-03-07 04:58] VITALS: BP 95/59; PULSE 63; RESP 18; TEMP 36.6; O2SAT 95
[2020-03-07] MEDS: Menthol/Lanolin/Calamine/Znox 113 GM Tube 1 APPLIC TOPICAL ×3 (05:00→22:36)
[2020-03-07 05:01] VITALS: BP 95/59; PULSE 63
[2020-03-07] MEDS: Magnesium Chloride 64 MG Delay Rel.Tablet 128 MG PO (05:01)
[2020-03-07] MEDS: Metoprolol(XL)Succ 50 MG Tablet PO (05:01)
[2020-03-07] MEDS: Lidocaine 5% Patch 2 PATCH TOPICAL (05:01)
[2020-03-07] MEDS: Bumetanide 2 MG Tablet 1 MG PO (05:02)
[2020-03-07] MEDS: Senna/Docusate Sodium 1 Tablet 2 TABLET PO ×2 (05:02→17:18)
[2020-03-07] MEDS: Multivitamin (Healthy Eyes) Capsule 1 CAP PO (05:02)
[2020-03-07] MEDS: Acetaminophen 500 MG Tablet 1000 MG PO ×3 (05:02→22:36)
[2020-03-07] MEDS: Amiodarone 200 MG Tablet PO (05:05)
[2020-03-07] MEDS: traMADol 50 MG Tablet PO ×2 (06:06→17:17)
[2020-03-07 06:07] LABS: Anion Gap 8 (5-15); BUN 89 mg/dL (7-18); BUN/Creat Ratio 35.5 RATIO (10-20); Calcium,Total 8.7 mg/dL (8.5-10.1); Chloride 102 mmol/L (98-107); Creatinine, Serum 2.51 mg/dL (0.55-1.02); EST Glomerular Filtration Rate 19 mL/min (>60); Est Glom Filt Rate - Afr Amer 24 mL/min (>60); Estimated Creatinine Clearance 15.01 ml/min; Glucose 127 mg/dL (74-106); Potassium 4.6 mmol/L (3.5-5.1); Sodium Level 135 mmol/L (136-145)
[2020-03-07] MEDS: Calcium Carb/Vitamin D 1 TABLET Tablet PO (08:10)
[2020-03-07] MEDS: Allopurinol 100 MG Tablet PO (08:10)
[2020-03-07] MEDS: Tamsulosin HCl 0.4 MG Capsule PO (08:10)
[2020-03-07] MEDS: Gabapentin 100 MG Capsule PO ×2 (08:10→17:18)
[2020-03-07] MEDS: Ferrous Sulfate 325 MG Tablet PO (08:10)
[2020-03-07] MEDS: MethylPREDNISolone DosePak 4 MG BOX PO (08:10)
--- NOTE | 2020-03-07 12:48 | NURSING ---
Spoke to daughter and gave her an update.
[2020-03-07 13:50] VITALS: BP 140/72; PULSE 68; RESP 14; TEMP 36.7; O2SAT 93
[2020-03-07 22:37] VITALS: PULSE 63; RESP 16; O2SAT 98
[2020-03-08 04:53] VITALS: BP 113/55; PULSE 58; RESP 16; TEMP 36.6; O2SAT 92
[2020-03-08] MEDS: Lidocaine 5% Patch 2 PATCH TOPICAL (04:53)
[2020-03-08] MEDS: Senna/Docusate Sodium 1 Tablet 2 TABLET PO (04:53)
[2020-03-08 04:54] VITALS: PULSE 58
[2020-03-08] MEDS: Amiodarone 200 MG Tablet PO (04:54)
[2020-03-08] MEDS: traMADol 50 MG Tablet PO ×3 (04:54→20:00)
[2020-03-08] MEDS: Magnesium Chloride 64 MG Delay Rel.Tablet 128 MG PO (04:54)
[2020-03-08] MEDS: Metoprolol(XL)Succ 50 MG Tablet PO (04:54)
[2020-03-08] MEDS: Multivitamin (Healthy Eyes) Capsule 1 CAP PO (04:54)
[2020-03-08] MEDS: Acetaminophen 500 MG Tablet 1000 MG PO ×3 (04:54→20:15)
[2020-03-08] MEDS: Menthol/Lanolin/Calamine/Znox 113 GM Tube 1 APPLIC TOPICAL ×3 (05:00→19:59)
[2020-03-08 06:54] LABS: Albumin, Serum 2.6 g/dL (3.2-5.0); BUN 87 mg/dL (7-18); Calcium,Total 8.6 mg/dL (8.5-10.1); Chloride 104 mmol/L (98-107); Creatinine, Serum 2.42 mg/dL (0.55-1.02); EST Glomerular Filtration Rate 20 mL/min (>60); Est Glom Filt Rate - Afr Amer 25 mL/min (>60); Estimated Creatinine Clearance 15.57 ml/min; Glucose 109 mg/dL (74-106); Phosphorus 3.2 mg/dL (2.5-4.9); Potassium 4.5 mmol/L (3.5-5.1); Sodium Level 137 mmol/L (136-145)
[2020-03-08] MEDS: Ferrous Sulfate 325 MG Tablet PO (08:45)
[2020-03-08] MEDS: Calcium Carb/Vitamin D 1 TABLET Tablet PO (08:45)
[2020-03-08] MEDS: Gabapentin 100 MG Capsule PO ×2 (08:45→17:24)
[2020-03-08] MEDS: Tamsulosin HCl 0.4 MG Capsule PO (08:46)
[2020-03-08] MEDS: Allopurinol 100 MG Tablet PO (08:46)
[2020-03-08 10:00] VITALS: PULSE 58; RESP 18; O2SAT 96
[2020-03-08 14:25] VITALS: BP 142/70; PULSE 70; RESP 16; TEMP 36.7; O2SAT 95
[2020-03-09 03:58] VITALS: BP 104/66; PULSE 62; RESP 18; TEMP 36.5; O2SAT 94
[2020-03-09 04:04] VITALS: BP 104/66; PULSE 62
[2020-03-09] MEDS: Metoprolol(XL)Succ 50 MG Tablet PO (04:04)
[2020-03-09] MEDS: Lidocaine 5% Patch 2 PATCH TOPICAL (04:04)
[2020-03-09] MEDS: Magnesium Chloride 64 MG Delay Rel.Tablet 128 MG PO (04:04)
[2020-03-09] MEDS: Amiodarone 200 MG Tablet PO (04:05)
[2020-03-09] MEDS: traMADol 50 MG Tablet PO ×2 (04:05→14:17)
[2020-03-09] MEDS: Multivitamin (Healthy Eyes) Capsule 1 CAP PO (04:05)
[2020-03-09] MEDS: Bumetanide 2 MG Tablet 1 MG PO (04:05)
[2020-03-09] MEDS: Acetaminophen 500 MG Tablet 1000 MG PO ×3 (04:06→22:22)
[2020-03-09] MEDS: Menthol/Lanolin/Calamine/Znox 113 GM Tube 1 APPLIC TOPICAL ×3 (04:06→22:23)
--- NOTE | 2020-03-09 08:26 | PN_ITS ---
Subjective: Resident seen for regulatory visit. Her back pain, leg pain, not well controlled. She is also not eating well. I discussed with her the importance of eating, maintaining nutrition to help her heal, and get back on her feet. Vitals/I&O's: Vital Signs Temp Pulse Resp BP Pulse Ox 97.7 F L 62 18 104/66 94 03/09/20 03:58 03/09/20 04:04 03/09/20 03:58 03/09/20 04:04 03/09/20 03:58 Oxygen Delivery Method Room Air Weight: 81.737 kg Body Mass Index (BMI) 28.3 Intake and Output for Last 24 Hours 03/07/20 03/08/20 03/09/20 23:59 23:59 23:59 Intake Total 600 / 600 360 / 360 Balance 600 / 600 360 / 360 Past Medical History Past Medical History (Chronic Problems): Chronic Problems (Last Reviewed 02/12/20 @ 20:[address] Adarsh Gipson, DO) CAD (coronary artery disease) (Chronic) Systolic CHF (Chronic) Iron deficiency anemia (Chronic) Gout (Chronic) Hypomagnesemia (Chronic) Atrial fibrillation (Chronic) Hypertension (Chronic) Pulmonary hypertension (Chronic) Chronic kidney disease (Chronic) Diabetes mellitus (Chronic) Breast cancer (Chronic) Renal cell cancer (Chronic) Atrial fibrillation, chronic (Chronic) Paroxysmal atrial fibrillation (Chronic) Persistent atrial fibrillation (Chronic) History of mitral valve replacement with bioprosthetic valve (Chronic ~01/18/17) 27mm [employer] Epic bioprosthesis 01/18/17 Essential hypertension (Chronic) Ventricular tachyarrhythmia (Chronic) H/O coronary artery bypass surgery (Chronic ~01/18/17) S/P bypass [place] [address] 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 marginal branch Presence of implantable cardioverter-defibrillator (ICD) (Chronic ~05/10/09) [employer] 05/10/2009 Secondary pulmonary arterial hypertension (Chronic) Ischemic cardiomyopathy (Chronic) Atherosclerosis of coronary artery of [place] heart without angina pectoris (Chronic) S/P bypass [place] [address] 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 marginal branch nursing home (current) use of 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 (Chronic) Acute on chronic systolic CHF (congestive heart failure) (Chronic) Chronic kidney disease, stage 3 (Chronic) Type 2 diabetes mellitus (Chronic) Status post right nephrectomy (Chronic) Status post implantation of automatic cardioverter/defibrillator (AICD) (Chronic) History of breast cancer (Chronic) History of renal cell carcinoma (Chronic) Medical History: Medical History (Last Reviewed 02/12/20 @ 20:[address] Adarsh Gipson, DO) Persistent atrial fibrillation (Chronic) I48.1 Ventricular tachyarrhythmia (Chronic) I47.2 Secondary pulmonary arterial hypertension (Chronic) I27.21 Ischemic cardiomyopathy (Chronic) I25.5 Atherosclerosis of coronary artery of [place] heart without angina pectoris (Chronic) I25.10 S/P bypass [place] [address] 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 marginal branch nursing home (current) use of 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 (Chronic) Z79.01 Acute on chronic systolic CHF (congestive heart failure) (Chronic) I50.23 Chronic kidney disease, stage 3 (Chronic) N18.3 Type 2 diabetes mellitus (Chronic) E11.9 History of breast cancer (Chronic) Z85.3 History of renal cell carcinoma (Chronic) Z85.528 Hypertension (Inactive) I10 Allergies erythromycin base Adverse Reaction (Verified 12/03/19 13:00) Vomiting meperidine [From Demerol] Adverse Reaction (Verified 12/03/19 13:00) Vomiting Home Medications: Ambulatory Orders Medication Instructions Recorded Niacin 250 mg PO DAILY 12/23/16 amiodarone 200 mg tablet 200 mg PO DAILY 90 Days #90 tab 04/19/17 C,E,Zinc,Copper 11/Ahmbh7g/Lut 1 tab PO DAILY 11/05/17 [Ocuvite Adult 50 Plus Softgel] Calcium Carbonate/Vitamin D3 1 tab PO DAILY 11/05/17 [Calcium 600-Vit D3 200 Tablet] Carboxymethylcellulose Sodium 1 drp EACH EYE TID 11/05/17 [Refresh Tears] Ferrous Sulfate [Iron] 325 mg PO DAILY 11/05/17 Allopurinol 100 mg PO DAILY 06/14/18 bumetanide 1 mg tablet 1 mg PO DAILY 11/27/18 magnesium oxide 400 mg (241.3 mg 400 mg PO DAILY #90 tab 07/30/19 magnesium) tablet fluorometholone 0.1 % eye 1 drp OPHTHALMIC QHS ml 12/03/19 drops,suspension metolazone 2.5 mg tablet 2.5 mg PO .COMPLEX PRN tab 12/03/19 Alprazolam [Xanax] 0.5 mg PO QHS PRN 02/12/20 Acetaminophen [Tylenol Tablet] 650 mg PO Q6H PRN PRN tab 02/13/20 Bisacodyl [Dulcolax] 10 mg PO DAILY PRN PRN tab 02/13/20 Docusate Sodium [Colace] 200 mg PO BID PRN PRN cap 02/13/20 Gabapentin [Neurontin] 100 mg PO BIDCM 02/13/20 Lidocaine [Lidoderm Patch] 2 patch TOPICAL DAILY 02/13/20 Mag Hydrox/Al Hydrox/Simeth 30 ml PO Q6H PRN PRN udc 02/13/20 [Mylanta II] Metoprolol Succinate 50 mg PO DAILY 02/13/20 Polyethylene Glycol 3350 [Miralax] 17 gm PO DAILY 02/13/20 Tamsulosin HCl [Flomax] 0.4 mg PO DAILY 02/13/20 traMADol [Ultram] 50 mg PO Q6H PRN PRN 3 Days #18 tab 02/13/20 Surgical History: Surgical History (Last Reviewed 02/12/20 @ 20:[address] Adarsh Gipson, DO) History of mitral valve replacement with bioprosthetic valve (Chronic) Onset Date: ~01/18/17 Z95.3 27mm [employer] Epic bioprosthesis 01/18/17 H/O coronary artery bypass surgery (Chronic) Onset Date: ~01/18/17 Z95.1 S/P bypass [place] [address] 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 marginal branch Presence of implantable cardioverter-defibrillator (ICD) (Chronic) Onset Date: ~05/10/09 Z95.810 [employer] 05/10/2009 Status post right nephrectomy (Chronic) Status post implantation of automatic cardioverter/defibrillator (AICD) (Chronic) Z95.810 History of left heart catheterization Onset Date: ~12/25/16 Z98.890 History of mitral valve replacement Z95.2 Mitral Valve Replacement with a 27mm [employer]leg[employer] bioprosthesis @ [facility] by Dr. Núñez History of partial mastectomy of left breast Onset Date: ~11/2003 Z98.890, Z90.12 History of total abdominal hysterectomy Z98.890, Z90.710 Hx of CABG Onset Date: ~12/2016 Z95.1 x2 ANGULO to LAD, SVG-OM; W/LAE occlusion with 35-mm [employer] Clip Hx of cholecystectomy Z98.890, Z90.49 Surgical History: appendectomy, cholecystectomy, coronary bypass surgery, hysterectomy, mastectomy, tonsillectomy, - - Mitral Valve replacement, defibrillator placement, Right nephrectomy. Psychiatric History: Anxiety PHLEBOTOMY COORDINATOR History: No pertinent PHLEBOTOMY COORDINATOR history Lives: Alone Smoking Status: Never smoker Tobacco Use: Non-smoker Alcohol: None Drugs: None - *Family History Maternal Family History: Family History (Last Reviewed 02/12/20 @ 20:[address] Adarsh Gipson DO) Brother CAD (coronary artery disease) History Items: Unknown - Patient states she does not know her maternal family history but believes she was healthy. Paternal Family History: Family History (Last Reviewed 02/12/20 @ 20:[address] Adarsh Gipson DO) Brother CAD (coronary artery disease) History Items: Unknown - Patient states she does not know her paternal family history but notes he was healthy. Sibling Family History: Family History (Last Reviewed 02/12/20 @ 20:[address] Adarsh Gipson DO) Brother CAD (coronary artery disease) History Items: Heart Disease Capacity - Capacity Assessment Tool Can the patient make a choice & communicate that choice?: Yes Can the patient understand benefits, risks and alternatives?: Yes Can the patient make a logical, rational choice?: Yes Is the choice the patient makes consistent w/ their values?: Yes Is there an impending, emergent risk to the patient?: No Does the patient have an Advance Directive?: Yes Is there a Surrogate Available?: Yes i.e. HCPOA: Yes i.e. close relative (spouse, child, parent, sibling)?: Yes Review of Systems Constitutional: Denies: Chills, Fever, Weight Change HEENT: Denies: Head Aches, Sinus Congestion, Sinus Drainage Cardiovascular: Denies: Chest Pain, Palpitations Respiratory: Denies: Cough, Shortness of breath at rest, Sputum production Gastrointestinal: Denies: Abdominal Pain, Nausea, Vomiting Genitourinary: Denies: Dysuria Musculoskeletal: Denies: Joint Pain, Joint Tenderness Skin: Denies: Rash, Wounds Neurological: Denies: Numbness, Tingling, Focal weakness Psychiatric: Denies: Anxiety, Depression, Homicidal Ideations, Suicidal I deations Hematologic/ Lymphatic: Denies: Easy Bruising, Easy Bleeding Patient Problems: Active and Suspected Problems (Last Reviewed 02/12/20 @ 20:[address] Adarsh Gipson, ) Intractable back pain (Acute) Debility (Acute) Compression fracture of L1 lumbar vertebra (Acute) Urinary retention (Acute) - Physical Exam Vitals/I&O's: Vital Signs Temp Pulse Resp BP Pulse Ox 97.7 F L 62 18 104/66 94 03/09/20 03:58 03/09/20 04:04 03/09/20 03:58 03/09/20 04:04 03/09/20 03:58 Oxygen Delivery Method Room Air Weight: 81.737 kg Body Mass Index (BMI) 28.3 Intake and Output for Last 24 Hours 03/07/20 03/08/20 03/09/20 23:59 23:59 23:59 Intake Total 600 / 600 360 / 360 Balance 600 / 600 360 / 360 Current Medications Acetaminophen (Acetaminophen 500 Mg Tablet) 1,000 mg PO TID [facility] Last Admin: 03/09/20 04:06 Dose: 1,000 mg Documented by: Al Hydroxide/Mg Hydroxide (Mag Hydrox/Al Hydrox/Simeth 30 Ml Udc) 30 ml PO Q6H PRN PRN PRN Reason: Gastric Burning Last Admin: 02/23/20 10:21 Dose: 30 ml Documented by: Allopurinol ([facility] 100 Mg Tablet) [facility] Admin: 03/08/20 08:46 Dose: 100 mg Documented by: Alprazolam (Alprazolam 0.5 Mg Tablet) 0.5 mg PO QHS PRN PRN Reason: ANXIETY Amiodarone HCl (Amiodarone 200 Mg Tablet) 200 mg PO DAILY [facility] Last Admin: 03/09/20 04:05 Dose: 200 mg Documented by: Bisacodyl (Bisacodyl 10 Mg Suppository) 10 mg RECTAL DAILY PRN PRN Reason: Constipation Bumetanide (Bumetanide 2 Mg Tablet) 1 mg PO Q48H [facility] Last Admin: 03/09/20 04:05 Dose: 1 mg Documented by: Calamine/Phenol (Menthol/Lanolin/Calamine/Znox 113 Gm Tube) 1 applic TOPICAL TID [facility]; Protocol Last Admin: 03/09/20 04:06 Dose: 1 applicatio Documented by: Calcium/Vitamin D (Calcium Carb/Vitamin D 1 Tablet Tablet) [facility] Last Admin: 03/08/20 08:45 Dose: 1 tablet Documented by: Ferrous Sulfate (Ferrous Sulfate 325 Mg Tablet) 325 mg PO DAILYCM [facility] Last Admin: 03/08/20 08:45 Dose: 325 mg Documented by: Gabapentin (Gabapentin 100 Mg Capsule) 200 mg PO TIDCM [facility] Lidocaine (Lidocaine 5% Patch) 2 patch TOPICAL DAILY [facility]; Protocol Last Admin: 03/09/20 04:04 Dose: 2 patch Documented by: Magnesium Chloride (Magnesium Chloride 64 Mg Delay Rel.Tablet) 128 mg PO DAILY [facility] Last Admin: 03/09/20 04:04 Dose: 128 mg Documented by: Metoprolol Succinate (Metoprolol(Xl)Succ 50 Mg Tablet) 50 mg PO DAILY [facility] Last Admin: 03/09/20 04:04 Dose: 50 mg Documented by: Multi-Ingredient Cream (Mineral Oil/Petrolatum,White 1 Applic Opth.Tube) 1 applic OP QHS [facility] Last Admin: 03/08/20 20:00 Dose: 1 applic Documented by: Multivitamins/Minerals (Multivitamin (Healthy Eyes) Capsule) 1 capsule PO DAILY [facility] Last Admin: 03/09/20 04:05 Dose: 1 capsule Documented by: Niacin (Niacin 250 Mg Capsule) 250 mg PO DAILY [facility] Last Admin: 03/09/20 04:04 Dose: 250 mg Documented by: Oxycodone HCl (Oxycodone 5 Mg Tablet) 5 mg PO Q4H PRN PRN PRN Reason: Pain Score 6-10 Senna/Docusate Sodium (Senna/Docusate Sodium 1 Tablet) 2 tablet PO BID [facility] Last Admin: 03/09/20 04:06 Dose: Not Given Documented by: Sodium Chloride (0.9% Saline Lock 10 Ml Syringe) 10 - 40 ml IV UD PRN PRN Reason: SALINE FLUSH Last Admin: 02/28/20 11:12 Dose: 10 ml Documented by: Tamsulosin HCl (Tamsulosin Hcl 0.4 Mg Capsule) 0.4 mg PO DAILY@0830 [facility] Last Admin: 03/08/20 08:46 Dose: 0.4 mg Documented by: Tramadol HCl (Tramadol 50 Mg Tablet) 50 mg PO Q6H PRN PRN PRN Reason: Pain Score 4-5 Last Admin: 03/09/20 04:05 Dose: 50 mg Documented by: Assessment/Plan All Active Problems (Last Reviewed 02/12/20 @ 20:[address] Adarsh Gipson, DO) Intractable back pain (Acute) Debility (Acute) Compression fracture of L1 lumbar vertebra (Acute) Urinary retention (Acute) H/O right nephrectomy (Acute) LANIE (acute kidney injury) (Acute) Complicated urinary tract infection (Acute) Calculus of proximal left ureter (Acute) Hydroureter on left (Acute) Hydronephrosis, left (Acute) Left ureteral calculus (Acute) Congestive heart failure (Acute) 84 year old female with below past medical history hospitalized for intractable back pain secondary to L1 compression fracture, admitted to TCU with debility, here for rehabilitation, strengthening, prior to discharge home alone. * Debility - PT/OT. * Pain - Tylenol 1000MG TID, Tramadol 50MG Q6H PRN pain (4-5), Oxycodone 5MG Q4H PRN pain (6-10), Lidoderm 2 patches daily. * Bowel - Senna/colace 2 tablets BID, Dulcolax 10MG SD daily PRN. * Adult immunization - Administer Prevnar 13, Pneumovax 23, Fluzone as appropriate. * DVT prophylaxis - Hold, Kyphoplasty on hold due to elevated PT. * Gout - Allopurinol 100MG daily. * Anxiety - Xanax 0.5MG QHS PRN, stable chronic prison use, GDR not recommended. * Atrial Fibrillation - Metoprolol succinate 50MG daily, Amiodarone 200MG daily, consider restarting anticoagulation. * Chronic systolic congestive heart failure - Metoprolol succinate 50MG daily, Bumex 1MG every other day. * Macular degeneration - Ocuvite 1 tablet daily. * Calcium deficiency -Calcium D 1 tablet daily. * Dry eyes - Genteal tears 1 application QHS. * Iron deficiency anemia - Ferrous Sulfate 325MG daily. * Neuropathic pain - Increase Gabapentin to 200MG TIDCM. * Indigestion - Mylanta II 30ML Q6H PRN. * Hypomagnesemia - Magnesium Oxide 400MG daily. * Niacin deficiency - Niacin 25MG daily. * Urinary retention - Tamsulosin 0.4MG daily. * Skin irritation - Calmoseptine topical TID. * Chronic kidney disease - follow BMP.
[2020-03-09] MEDS: Ferrous Sulfate 325 MG Tablet PO (09:59)
[2020-03-09] MEDS: Allopurinol 100 MG Tablet PO (09:59)
[2020-03-09] MEDS: Calcium Carb/Vitamin D 1 TABLET Tablet PO (09:59)
[2020-03-09] MEDS: Tamsulosin HCl 0.4 MG Capsule PO (10:00)
[2020-03-09] MEDS: Gabapentin 100 MG Capsule 200 MG PO ×2 (11:42→18:11)
[2020-03-09 14:31] VITALS: BP 91/54; PULSE 63; RESP 16; TEMP 36.4; O2SAT 97
--- NOTE | 2020-03-09 15:01 | NURSING ---
PER THERAPY, PT IS NOW A NATALYA AND A 2 ASSIST WITH DRESSING AND ETC. THIS NURSE ASKED PT WHAT WAS WRONG AND PT STATED SHE JUST DONT HAVE THE ENERGY ANY MORE TO DO ANY THING AND JUST WANTS TO SLEEP. THIS NURSE HAS SEEN A DECLINE IN PT OVER THE PAST WEEK. REPORTED TO RN AND YONATHANSKEWER UP.
--- NOTE | 2020-03-09 15:16 | NURSING ---
PT STATED TO THIS NURSE, I JUST CANT HOLD ON TO LIFE ANY MORE. EAN TIRED AND READY TO GO. RN AWARE
--- NOTE | 2020-03-09 16:50 | NURSING ---
PT DAUGHTER CALLED AND THIS NURSE UPDATED HER ON PT. DAUGHTER STATED SHE HAS BEEN TRYING TO CALL PT AND SHE WILL NOT ANSWER OR SHE WILL NOT CALL HER BACK. THIS NURSE STATED TO DAUGHTER THAT I WOULD TRY AND GET HER TO CALL DAUGHTER. RN AWARE
--- NOTE | 2020-03-09 17:42 | NURSING ---
DAUGHTER CALLED AND WANTED THIS NURSE TO ASK PT IF SHE IS READY FOR HOSPICE AND IF SO TO LET HER KNOW AND GET THE PAPER WORK STARTED. THIS NURSE STATED SHE WILL ASK AND LET HER KNOW BUT WILL GET WITH BRIANNA,PACK WORKER IN MORNING TO GET THAT STARTED. DAUGHTER UNDER STOOD. RN AWARE
[2020-03-09] MEDS: Senna/Docusate Sodium 1 Tablet 2 TABLET PO (18:11)
--- NOTE | 2020-03-09 18:17 | NURSING ---
ASKED PT IF SHE WAS READY FOR HOSPICE. PT STATED YES,EAN TIRED OF ALL THIS AND DONT WANT ANY MORE THERAPY. WILL NOTIFY DAUGHTER AND KHOI MCMANUS.
[2020-03-09 22:30] VITALS: PULSE 84; RESP 16; O2SAT 96
[2020-03-10 04:09] VITALS: PULSE 98; RESP 18; TEMP 36.8; O2SAT 96
[2020-03-10] MEDS: Acetaminophen 500 MG Tablet 1000 MG PO ×2 (04:10→13:25)
[2020-03-10] MEDS: Senna/Docusate Sodium 1 Tablet 2 TABLET PO (04:11)
[2020-03-10] MEDS: Multivitamin (Healthy Eyes) Capsule 1 CAP PO (04:12)
[2020-03-10] MEDS: Magnesium Chloride 64 MG Delay Rel.Tablet 128 MG PO (04:14)
[2020-03-10] MEDS: Menthol/Lanolin/Calamine/Znox 113 GM Tube 1 APPLIC TOPICAL ×2 (04:15→13:22)
[2020-03-10 05:31] LABS: Anion Gap 6 (5-15); BUN 69 mg/dL (7-18); BUN/Creat Ratio 33.7 RATIO (10-20); Calcium,Total 8.6 mg/dL (8.5-10.1); Chloride 105 mmol/L (98-107); Creatinine, Serum 2.05 mg/dL (0.55-1.02); EST Glomerular Filtration Rate 25 mL/min (>60); Est Glom Filt Rate - Afr Amer 30 mL/min (>60); Estimated Creatinine Clearance 18.38 ml/min; Glucose 102 mg/dL (74-106); Sodium Level 138 mmol/L (136-145)
[2020-03-10 06:54] VITALS: BP 107/56; PULSE 63
[2020-03-10] MEDS: Metoprolol(XL)Succ 50 MG Tablet PO (06:54)
[2020-03-10] MEDS: Lidocaine 5% Patch 2 PATCH TOPICAL (06:54)
[2020-03-10] MEDS: Amiodarone 200 MG Tablet PO (06:54)
[2020-03-10 06:55] VITALS: BP 107/56; PULSE 63
[2020-03-10] MEDS: Allopurinol 100 MG Tablet PO (08:09)
[2020-03-10] MEDS: Ferrous Sulfate 325 MG Tablet PO (08:09)
[2020-03-10] MEDS: Calcium Carb/Vitamin D 1 TABLET Tablet PO (08:09)
[2020-03-10] MEDS: Gabapentin 100 MG Capsule 200 MG PO ×2 (08:10→11:44)
[2020-03-10] MEDS: Tamsulosin HCl 0.4 MG Capsule PO (08:10)
--- NOTE | 2020-03-10 08:34 | CASEMGMT ---
Addendum entered by Eugenia Leyva 03/10/20 13:17: Peer to peer completed and pt approved for IPU. Family aware. Transport scheduled for 2:30 pm warp picker. IDT aware. Plan: DC to [facility] IPU 03/10 Original Note: Social Work Received information from pt, nursing and dtr that pt is ready for hospice. She no longer wants treatment or therapy nor the procedure which is scheduled for 03/11. Dr. colbyable for hospice consult. Nursing stated pt still not eating meals, BP was low, and is pale, still in pain. Dr. ritter. Contacted dtr about hospice wishes. Spoke with dtr at length and explained the next steps. SW to make referral to [facility]. Explained pt is now vishal lift and discussed home with hospice or SNF with hospice. Dtr inquired about IPU as she promised the pt she would never put her in a SNF, and she wants to take her home, but needs time to get things ready. Explained IPU is for active pts and rarely do they allow it as an interim stay, but SW can definitely inquire. Offered to email resources of private investigator list for hire for 23/10 care, which dtr agrees to, but she stated the pt has no money to cover that cost. Explained, unfortunately, those are the only options at this time, and going to a SNF pt would need to pay privately and for 30 days up front. Dtr unsure and continues to return back to IPU. SW emailed nonskilled HHC list, suggested to look at rates and begin calling agencies, to discuss situation with family, while SW makes referral and gets further information. Dtr agrees. Explained pt indicates she will refuse therapy and TCU cannot provide hospice care, thus she would need to DC soon. Dtr expressed understanding. Referral made to [facility]. Hospice will review pt's case, reach out to dtr, and follow up with SW. Will continue to follow. Eugenia Leyva, [employer] PYRIDINE RECOVERY OPERATOR
[2020-03-10 10:00] VITALS: PULSE 67; RESP 16; O2SAT 95
--- NOTE | 2020-03-10 12:36 | NURSING ---
Systems Program Manager Note: Visit with resident in room. Resident shared her decision to go on Hospice care for end of life care. Res states that she is greatly at peace with her decision. States she has lived a good, long life and is ready for heaven. Res desires to facetime granddaughters. Able to Facetime Granddaughter, Terri in [place] and Facetime scheduled with justin Roblero in [place] for 1300. Res states that she is looking forward to heaven and being reunited with her that in 2008. Family is supportive.
--- NOTE | 2020-03-10 13:04 | DCINST_ITS ---
- Discharge Diagnoses Current Active Problems: Current Active and Chronic Problems (Last Reviewed 02/12/20 @ 20:[address] Adarsh Gipson DO) Intractable back pain (Acute) Debility (Acute) CAD (coronary artery disease) (Chronic) Systolic CHF (Chronic) Compression fracture of L1 lumbar vertebra (Acute) Iron deficiency anemia (Chronic) Gout (Chronic) Urinary retention (Acute) Hypomagnesemia (Chronic) Atrial fibrillation (Chronic) Hypertension (Chronic) Pulmonary hypertension (Chronic) Chronic kidney disease (Chronic) Diabetes mellitus (Chronic) Breast cancer (Chronic) Renal cell cancer (Chronic) You will use the following diet at home:: No restrictions, Regular Your food should be the consistency of: Regular Your liquids should be the consistency of: Regular/Thin Discharge Activity: Use Walker Weight Bearing Status: Weight bearing as tolerated Allergies/Adverse Reactions: Allergies erythromycin base Adverse Reaction (Verified 12/03/19 13:00) Vomiting meperidine [From Demerol] Adverse Reaction (Verified 12/03/19 13:00) Vomiting Medications to take at Discharge Alprazolam [Xanax] 0.5 mg PO QHS PRN 02/12/20 Lidocaine [Lidoderm Patch] 2 patch TOPICAL DAILY 02/13/20 Metoprolol Succinate 50 mg PO DAILY 02/13/20 Acetaminophen [Tylenol] 1,000 mg PO TID tab 03/10/20 Primary Care Physician: Gilberto Rios MD [Primary Care Provider] - Please follow up with your Primary Care Physician in: As needed. Test Results: Test results from this visit will be discussed in further detail at your follow- up appointment, if applicable. Please Follow Up With: MD Desean When: N/A. Please Follow Up With: MD Desean When: N/A. Please Follow Up With: Stacy Degroot DO When: N/A. Proposed Discharge Date: 03/10/20
--- NOTE | 2020-03-10 13:06 | PCM.DC.SUM ---
Discharge Date and Diagnosis - Problem List Patient Problems: Active and Suspected Problems (Last Reviewed 02/12/20 @ 20:[address] Adarsh Gipson DO) Intractable back pain (Acute) Debility (Acute) Compression fracture of L1 lumbar vertebra (Acute) Urinary retention (Acute) Date of Admission: 02/13/20 Date of Discharge: 03/10/20 - Primary Discharge Diagnosis Acute Problems: Active Problems (Last Reviewed 02/12/20 @ 20:[address] Adarsh Gipson DO) Intractable back pain (Acute) Debility (Acute) Compression fracture of L1 lumbar vertebra (Acute) Urinary retention (Acute) - Secondary Discharge Diagnosis Chronic Problems: Chronic Problems (Last Reviewed 02/12/20 @ 20:[address] Adarsh Gipson DO) CAD (coronary artery disease) (Chronic) Systolic CHF (Chronic) Iron deficiency anemia (Chronic) Gout (Chronic) Hypomagnesemia (Chronic) Atrial fibrillation (Chronic) Hypertension (Chronic) Pulmonary hypertension (Chronic) Chronic kidney disease (Chronic) Diabetes mellitus (Chronic) Breast cancer (Chronic) Renal cell cancer (Chronic) Atrial fibrillation, chronic (Chronic) Paroxysmal atrial fibrillation (Chronic) Persistent atrial fibrillation (Chronic) History of mitral valve replacement with bioprosthetic valve (Chronic ~01/18/17) 27mm [facility] Epic bioprosthesis 01/18/17 Essential hypertension (Chronic) Ventricular tachyarrhythmia (Chronic) H/O coronary artery bypass surgery (Chronic ~01/18/17) S/P bypass [place] [address] 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 marginal branch Presence of implantable cardioverter-defibrillator (ICD) (Chronic ~05/10/09) [employer] 05/10/2009 Secondary pulmonary arterial hypertension (Chronic) Ischemic cardiomyopathy (Chronic) Atherosclerosis of coronary artery of [place] heart without angina pectoris (Chronic) S/P bypass surgery [place] [address] 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 03/09/20 Resident stopped eating, became [employer], said she wanted to give up and , low back pain uncontrolled despite controlled substances. Discharge to Inpatient Hospice Facility. Patient Problems: Active and Suspected Problems (Last Reviewed 02/12/20 @ 20:[address] Adarsh Gipson, ) Intractable back pain (Acute) Debility (Acute) Compression fracture of L1 lumbar vertebra (Acute) Urinary retention (Acute) - Physical Exam Vitals/I&O's: Vital Signs Temp Pulse Resp BP Pulse Ox 98.2 F 63 18 107/56 L 96 03/10/20 04:09 03/10/20 06:55 03/10/20 04:09 03/10/20 06:55 03/10/20 04:09 Oxygen Delivery Method Room Air Weight: 77.621 kg Body Mass Index (BMI) 28.3 Intake and Output for Last 24 Hours 03/08/20 03/09/20 03/10/20 23:59 23:59 23:59 Intake Total 360 / 360 420 / 420 320 / 320 Balance 360 / 360 420 / 420 320 / 320 Microbiology Past 72 Hours 03/09/20 11:30 Nasal Secretion SARS-CoV-2 Antigen (Rapid) - Final Laboratory Results 03/10/20 04:50: Sodium 138, Potassium 4.0, Chloride 105, Carbon Dioxide 27.0, Anion Gap 6, BUN 69 H, Creatinine 2.05 H, Estim Creat Clear Calc 18.38, Est GFR (MDRD) Af Amer 30 L, Est GFR (MDRD) Non-Af 25 L, BUN/Creatinine Ratio 33.7 H, Glucose 102, Calcium 8.6 Current Medications Acetaminophen (Acetaminophen 500 Mg Tablet) 1,000 mg PO TID [facility] Last Admin: 03/10/20 04:10 Dose: 1,000 mg Documented by: Al Hydroxide/Mg Hydroxide (Mag Hydrox/Al Hydrox/Simeth 30 Ml Udc) 30 ml PO Q6H PRN PRN PRN Reason: Gastric Burning Last Admin: 02/23/20 10:21 Dose: 30 ml Documented by: [facility]op[facility]ol ([facility] 100 Mg Tablet) [facility] Admin: 03/10/20 08:09 Dose: 100 mg Documented by: Alprazolam (Alprazolam 0.5 Mg Tablet) 0.5 mg PO QHS PRN PRN Reason: ANXIETY Amiodarone HCl (Amiodarone 200 Mg Tablet) 200 mg PO DAILY [facility] Last Admin: 03/10/20 06:54 Dose: 200 mg Documented by: Bisacodyl (Bisacodyl 10 Mg Suppository) 10 mg RECTAL DAILY PRN PRN Reason: Constipation Bumetanide (Bumetanide 2 Mg Tablet) 1 mg PO Q48H [facility] Last Admin: 03/09/20 04:05 Dose: 1 mg Documented by: Calamine/Phenol (Menthol/Lanolin/Calamine/Znox 113 Gm Tube) 1 applic TOPICAL TID [facility]; Protocol Last Admin: 03/10/20 04:15 Dose: 1 applicatio Documented by: Calcium/Vitamin D (Calcium Carb/Vitamin D 1 Tablet Tablet) [facility] Last Admin: 03/10/20 08:09 Dose: 1 tablet Documented by: Ferrous Sulfate (Ferrous Sulfate 325 Mg Tablet) 325 mg PO DAILYCM [facility] Last Admin: 03/10/20 08:09 Dose: 325 mg Documented by: Gabapentin (Gabapentin 100 Mg Capsule) 200 mg PO TIDCM [facility] Last Admin: 03/10/20 11:44 Dose: 200 mg Documented by: Lidocaine (Lidocaine 5% Patch) 2 patch TOPICAL DAILY [facility]; Protocol Last Admin: 03/10/20 06:54 Dose: 2 patch Documented by: Magnesium Chloride (Magnesium Chloride 64 Mg Delay Rel.Tablet) 128 mg PO DAILY [facility] Last Admin: 03/10/20 04:14 Dose: 128 mg Documented by: Metoprolol Succinate (Metoprolol(Xl)Succ 50 Mg Tablet) 50 mg PO DAILY [facility] Last Admin: 03/10/20 06:54 Dose: 50 mg Documented by: Multi-Ingredient Cream (Mineral Oil/Petrolatum,White 1 Applic Opth.Tube) 1 applic OP QHS [facility] Last Admin: 03/09/20 22:15 Dose: 1 applic Documented by: Multivitamins/Minerals (Multivitamin (Healthy Eyes) Capsule) 1 capsule PO DAILY [facility] Last Admin: 03/10/20 04:12 Dose: 1 capsule Documented by: Niacin (Niacin 250 Mg Capsule) 250 mg PO DAILY [facility] Last Admin: 03/10/20 04:15 Dose: 250 mg Documented by: Oxycodone HCl (Oxycodone 5 Mg Tablet) 5 mg PO Q4H PRN PRN PRN Reason: Pain Score 6-10 Senna/Docusate Sodium (Senna/Docusate Sodium 1 Tablet) 2 tablet PO BID [facility] Last Admin: 03/10/20 04:11 Dose: 2 tablet Documented by: Sodium Chloride (0.9% Saline Lock 10 Ml Syringe) 10 - 40 ml IV UD PRN PRN Reason: SALINE FLUSH Last Admin: 02/28/20 11:12 Dose: 10 ml Documented by: Tamsulosin HCl (Tamsulosin Hcl 0.4 Mg Capsule) 0.4 mg PO DAILY@0830 [facility] Last Admin: 03/10/20 08:10 Dose: 0.4 mg Documented by: Tramadol HCl (Tramadol 50 Mg Tablet) 50 mg PO Q6H PRN PRN PRN Reason: Pain Score 4-5 Last Admin: 03/09/20 14:17 Dose: 50 mg Documented by: Discharge Diet: No Restrictions Discharge Activity: Use Walker Weight Bearing Status: Weight bearing as tolerated Home Medications: Medications to take at Discharge Alprazolam [Xanax] 0.5 mg PO QHS PRN 02/12/20 Lidocaine [Lidoderm Patch] 2 patch TOPICAL DAILY 02/13/20 Metoprolol Succinate 50 mg PO DAILY 02/13/20 Acetaminophen [Tylenol] 1,000 mg PO TID tab 03/10/20 Primary Care Physician: Gilberto Rios MD [Primary Care Provider] - Please follow up with your Primary Care Physician in: As needed. Please Follow Up With: MD Desean When: N/A. Please Follow Up With: MD Desean When: N/A. Please Follow Up With: Stacy Degroot DO When: N/A. Disposition: Hospice Medical Facility Minutes spent on discharge:: 30 Patient Condition:: Poor Medical Necessity - Tobacco Use Smoking Status: Never smoker Tobacco Use: Non-smoker Meaningful Use Info Meaningful Use Diagnoses (Choose all that apply): None applicable
--- NOTE | 2020-03-10 13:42 | NURSING ---
[facility]PDATED FAMILY
[2020-03-10 15:25] VITALS: BP 130/71; PULSE 70; RESP 16; TEMP 36.2; O2SAT 94
== END 2020-03-10 02:30 | disposition hospice, inpatient (51) | DRG 560 ==
PROVIDERS: Internal Medicine Hematology & Oncology; Admitting Provider Family Medicine Geriatric Medicine; PCP Family Medicine; Visit Provider Family Medicine Geriatric Medicine
DX: M48.56XD Collapsed vertebra, not elsewhere classified, lumbar region, subsequent encounter for fracture with routine healing (principal); I48.19 Other persistent atrial fibrillation; I50.22 Chronic systolic (congestive) heart failure; I13.0 Hypertensive heart and chronic kidney disease with heart failure and stage 1 through stage 4 chronic kidney disease, or unspecified chronic kidney disease; D50.9 Iron deficiency anemia, unspecified; M10.9 Gout, unspecified; N18.30 Chronic kidney disease, stage 3 unspecified; I27.21 Secondary pulmonary arterial hypertension; E11.22 Type 2 diabetes mellitus with diabetic chronic kidney disease; F41.9 Anxiety disorder, unspecified; H35.30 Unspecified macular degeneration; I25.10 Atherosclerotic heart disease of native coronary artery without angina pectoris; Z85.3 Personal history of malignant neoplasm of breast; Z85.528 Personal history of other malignant neoplasm of kidney; Z95.3 Presence of xenogenic heart valve; I25.5 Ischemic cardiomyopathy
CPT/HCPCS: 36415; 36430; 71046; 80048; 80069; 81001; 83735; 83970; 84550; 85025; 85610; 85730; 86900; 86901; 87086; 87088; 87426; 87635; 92507; 92523; 93971; 97110; 97116; 97162; 97166; 97530; 97535; 97802; J7040; P9017; A4216; U0003

== ENCOUNTER → 2020-02-18 12:33 | Outpatient (CLI) | payer MEDICARE, OTHER, SELFPAY ==
[2020-02-13 19:59] VITALS: BMI 28.3
[2020-02-18 12:50] VITALS: BP 104/47; PULSE 69; RESP 16; TEMP 36.4; O2SAT 96; BMI 29.9
[2020-02-18 13:34] VITALS: BP 100/47; PULSE 72; RESP 16; TEMP 36.2; O2SAT 96
[2020-02-18 14:53] VITALS: BP 98/47; PULSE 67; RESP 20; TEMP 36.1; O2SAT 95
== END ==
PROVIDERS: PCP Family Medicine; Referring Provider Family Medicine Geriatric Medicine; Visit Provider Family Medicine Geriatric Medicine
DX: D64.9 Anemia, unspecified (principal)
CPT/HCPCS: 36430; 86900; 86901; J7040; P9017